=== PATIENT | male | born 1955 | race Caucasian/White ===

== ENCOUNTER 2016-10-06 02:14 | Inpatient (IN) | payer BC ==
[2016-10-06] VITALS (19 sets, daily range): BP systolic 91–134; BP diastolic 69–84; PULSE 75–99; TEMP 36.6–37.1; O2SAT 93–100; Ht 185.4 cm; Wt 129.7 kg
[~2016-10-06] VITALS: Ht 185.4 cm; Wt 129.7 kg
[~2016-10-06 02:14] MED LIST: ADAL40KI IM; ALBU1AER9 INH; COLC0.6T54 PO; FOLI1TAB7 PO; FRRS300 PO; GLC500 PO; LISI-461 PO; METO50TA16 PO; NRV5 PO; OXYC5TAB PO; PANT40TA PO; PARO30TA4 PO; PRD10 PO; THIA100T11 PO
[2016-10-06] MEDS ORDERED: GELATIN SPONGE 12-7MM ONE (02:26)
[2016-10-06] MEDS ORDERED: LIDO/EPINEPHRINE/SOD BICARB 20 ML VIAL INFIL ONE (02:26)
[2016-10-06] MEDS ORDERED: SODIUM CHLORIDE 0.9% 500ML 500 ML IV STA ×2 (02:41→03:49)
[2016-10-06 02:56] LABS: BASO % 0.9 %; BASO ABS # 0.08 K/uL (0-0.2); EOS % 3.9 %; IG% 0.3 %; LYMPH % 32.4 %; LYMPH ABS # 2.97 K/uL (1.2-3.4); MEAN CELL VOLUME 77.2 fL (80-100); MEAN CORPUSCULAR HEMOGLOBIN 24.9 pg (25-34); MEAN CORPUSCULAR HGB CONC 32.3 g/dl (32-36); MEAN PLATELET VOLUME 9.7 fL (7.4-10.4); MONO % 8.8 %; NEUT % 53.7 %; PLATELET COUNT 222 K/uL (130-400); RED BLOOD COUNT 3.37 M/uL (4.7-6.1); WHITE BLOOD COUNT 9.17 K/uL (4.8-10.8)
[2016-10-06 03:04] LABS: INR 1.1 (0.9-1.1); PARTIAL THROMBOPLASTIN RATIO 0.9; PROTHROMBIN TIME (PATIENT) 11.4 SECONDS (9.0-12.0)
[2016-10-06 03:13] LABS: COMPLETE YES
[2016-10-06 03:14] LABS: POINT OF CARE TROPONIN I 0.03 ng/ml (0-0.045)
[2016-10-06 03:19] LABS: BUN/CREATININE RATIO 11.6 (10-20); CALCIUM 8.2 mg/dl (8.5-10.1); CREATININE 1.2 mg/dl (0.60-1.40); POTASSIUM 3.5 mmol/L (3.5-5.1)
[2016-10-06 03:23] LABS: CKMB/CK RATIO 5.4 (0-3.0)
[2016-10-06] MEDS ORDERED: OPTIRAY 320 IV PRN (03:30)
[2016-10-06] MEDS ORDERED: ALL300 PO (04:25)
--- NOTE | 2016-10-06 04:35 | EMERGENCY ROOM VISIT NOTE ---
History First contact with patient: 02:30 Chief Complaint: BLEEDING Stated Complaint: BLEEDING History of Present Illness The patient is a 61 year old male who presents to the Emergency Room with complaints of shortness of breath for the past 2 weeks that is getting increased in severity who today accidentally hit his ankle on something and has bleeding from one of his varicose veins. This has happened to him before. He is not on blood thinners. Patient denies chest pain, fever, chills, cough, congestion, abdominal pain, numbness, tingling. Patient does drink daily. He' s had 6 drinks today. Patient denies prior history of heart attack, congestive heart failure, PE. He does have atrial flutter. 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 Review of Systems See HPI for pertinent positives & negatives. A total of 10 systems reviewed and were otherwise negative. Past Medical/Surgical History Medical Problems: (1) Alcohol abuse (2) Atrial flutter with rapid ventricular response (3) BPH (benign prostatic hypertrophy) (4) Chest pain (5) Depression (6) Depression (7) Diabetes mellitus type 2 in obese (8) Diastolic dysfunction (9) Gout (10) HTN (hypertension) (11) Hyperlipidemia (12) Obesity (BMI 30-39.9) (13) LAUREN on CPAP (14) Paroxysmal atrial flutter (15) Psoriatic arthritis (16) Unspecified asthma Surgical Problems: (1) Hx of ankle fusion (2) S/P colonoscopy (3) S/p mastoid surgery (4) S/P tonsillectomy (5) Status post surgical manipulation of ankle joint Family History Diabetes mellitus MOTHER FH: heart disease FATHER ( of [place] age 40) Hypertension MOTHER Social History Smoking Status: Never Smoker Alcohol Use: heavy Drug Use: none Housing Status: lives with significant other Current/Historical Medications Scheduled Allopurinol (Allopurinol), 300 MG PO DAILYBB Metformin HCl (Metformin HCl), 500 MG PO BID Paroxetine (Paroxetine HCl), 30 MG PO QAM Allergies Coded Allergies: No Known Allergies (Unverified , 10/06/16) Physical Exam Vital Signs Date Time Temp Pulse Resp B/P Pulse Ox O2 Delivery O2 Flow Rate FiO2 10/06/16 03:49 111 20 114/65 99 Room Air 10/06/16 02:45 Room Air 10/06/16 02:45 Room Air 10/06/16 02:24 122 10/06/16 02:18 36.4 114 18 129/61 94 Room Air Physical Exam VITALS: Vitals are noted on the nurse's note and reviewed by myself. Vital signs tachycardic GENERAL: Obese male with poor hygiene, in no acute distress, nondiaphoretic, well-developed well-nourished. SKIN: 5mm varicosity bleed medial malleolus area, diffuse psoriasis unchanged per patient The rest of the skin was without rashes, erythema, edema, or bruising. There is no tenting of the skin. Capillary reflex less than 2 seconds. HEAD: Normocephalic atraumatic. EARS: External auditory canals clear, tympanic membranes pearly mcfarland without erythema or effusion bilaterally. EYES: Pupils equal round and reactive to light and accommodation. Conjunctivae without injection, sclerae without icterus. Extraocular movements intact. NOSE: Patent, turbinates without inflammation or discharge. MOUTH: Mucous membranes moist. Pharynx without erythema or exudate. Uvula midline. Airway patent. Tongue does not deviate. NECK: Supple without nuchal rigidity. No lymphadenopathy. No thyromegaly. Cervical spine is nontender. No JVD. HEART: Irregularly Irregular LUNGS: Clear to auscultation bilaterally without wheezes, rales or rhonchi. No dullness to percussion. No retractions or accessory muscle use. ABDOMEN: Positive bowel sounds x 4. Normal tympanic percussion. Soft, protuberant, obeses, nontender, without masses or organomegaly. Teague sign negative. No guarding or rebound tenderness. MUSCULOSKELETAL: No muscle atrophy, erythema, noted. + 1pitting edema bilateral lower extremities NEURO: Patient was alert and oriented to person place and time. Normal sensation to light and sharp touch. No focal neurological deficits. Medical Decision & Procedures Laboratory Results 10/06/16 01:37 Red Blood Count 3.37, Mean Corpuscular Volume 77.2, Mean Corpuscular Hemoglobin 24.9, Mean Corpuscular Hemoglobin Concent 32.3, Mean Platelet Volume 9.7, Neutrophils (%) (Auto) 53.7, Lymphocytes (%) (Auto) 32.4, Monocytes (%) (Auto) 8.8, Eosinophils (%) (Auto) 3.9, Basophils (%) (Auto) 0.9, Neutrophils # (Auto) 4.92, Lymphocytes # (Auto) 2.97, Monocytes # (Auto) 0.81, Eosinophils # (Auto) 0.36, Basophils # (Auto) 0.08 10/06/16 01:37 Test 10/06/16 01:37 10/06/16 02:54 10/06/16 02:55 White Blood Count 9.17 K/uL (4.8-10.8) Red Blood Count 3.37 M/uL (4.7-6.1) Hemoglobin 8.4 g/dL (14.0-18.0) Hematocrit 26.0 % (42-52) Mean Corpuscular Volume 77.2 fL (80-100) Mean Corpuscular Hemoglobin 24.9 pg (25-34) Mean Corpuscular Hemoglobin Concent 32.3 g/dl (32-36) Platelet Count 222 K/uL (130-400) Mean Platelet Volume 9.7 fL (7.4-10.4) Neutrophils (%) (Auto) 53.7 % Lymphocytes (%) (Auto) 32.4 % Monocytes (%) (Auto) 8.8 % Eosinophils (%) (Auto) 3.9 % Basophils (%) (Auto) 0.9 % Neutrophils # (Auto) 4.92 K/uL (1.4-6.5) Lymphocytes # (Auto) 2.97 K/uL (1.2-3.4) Monocytes # (Auto) 0.81 K/uL (0.11-0.59) Eosinophils # (Auto) 0.36 K/uL (0-0.5) Basophils # (Auto) 0.08 K/uL (0-0.2) RDW Standard Deviation 52.0 fL (36.4-46.3) RDW Coefficient of Variation 18.8 % (11.5-14.5) Immature Granulocyte % (Auto) 0.3 % Immature Granulocyte # (Auto) 0.03 K/uL (0.00-0.02) Red Blood Cell Morphology Unremarkable Prothrombin Time 11.4 SECONDS (9.0-12.0) Prothromb Time International Ratio 1.1 (0.9-1.1) Activated Partial Thromboplast Time 23.3 SECONDS (21.0-31.0) Partial Thromboplastin Ratio 0.9 Anion Gap 18.0 mmol/L (3-11) Est Creatinine Clear Calc Drug Dose 97.1 ml/min Estimated GFR () 76.3 Estimated GFR (Non- 65.8 BUN/Creatinine Ratio 11.6 (10-20) Calcium Level 8.2 mg/dl (8.5-10.1) Total Bilirubin 0.7 mg/dl (0.2-1) Direct Bilirubin 0.3 mg/dl (0-0.2) Aspartate Amino Transf (AST/SGOT) 21 U/L (15-37) Alanine Aminotransferase (ALT/SGPT) 21 U/L (12-78) Alkaline Phosphatase 89 U/L (45-117) Total Creatine Kinase 94 U/L (39-308) Creatine Kinase MB 5.1 ng/ml (0.5-3.6) Creatine Kinase MB Ratio 5.4 (0-3.0) Total Protein 6.3 gm/dl (6.4-8.2) Albumin 3.1 gm/dl (3.4-5.0) Lipase 219 U/L (73-393) Bedside D-Dimer 247 ng/mlFEU (0-450) Bedside Troponin I 0.030 ng/ml (0-0.045) Ethyl Alcohol mg/dL 68.0 mg/dl (0-3) Medications Administered Medications (Trade) Dose Ordered Sig/Karen Route Start Time Stop Time Status Last Admin Dose Admin Gelatin (Surgifoam Sponge 12-7MM (SMALL)) 1 ea STK-MED ONCE .ROUTE 10/06/16 02:26 10/06/16 02:27 DC 10/06/16 02:26 1 EA Lidocaine/ Epinephrine 20 ml 20 ml STK-MED ONCE INFIL 10/06/16 02:26 10/06/16 02:27 DC 10/06/16 02:26 20 ML Sodium Chloride 500 ml @ 999 mls/hr Q31M STAT IV 10/06/16 02:41 10/06/16 03:11 DC 10/06/16 02:59 999 MLS/HR Sodium Chloride (Nss 500ml) 500 ml @ 999 mls/hr Q31M STAT IV 10/06/16 03:49 10/06/16 04:19 DC 10/06/16 03:57 999 MLS/HR Procedure Location: right ankle Total length: 5mm Complexity: simple Verbal consent was obtained after the risks and benefits were explained, including but not limited to bleeding, scarring, infection, pain, and bone/joint /nerve damage. At this time, the risks of the procedure are less than the risks of NOT performing the procedure. A time out was taken and the correct patient and site identified. The skin was prepped with betadine. The target area was anesthetized with 2 ml of 1% lidocaine with epinephrine. Copious irrigation was performed using NSS. The skin was re-prepped with betadine and a sterile field set. The wound was explored for foreign bodies and none found. Examination revealed no injury to deep structures such as tendons, bone, or significant blood vessels. Debridement was not performed. The wound edges were approximated using 2, 4-0 simple interrupted nylon sutures. Hemostasis and excellent approximation was achieved. Antibacterial ointment and a sterile dressing applied. Detailed wound care instructions and signs and symptoms of infection reviewed with the pt. No complications and the patient tolerated the procedure well. Gelfoam was also applied to obtain hemostasis. ED Course Prior records/ancillary studies reviewed. Triage Nursing notes reviewed. Additional history obtained from the EMS The patient's history was concerning for respiratory difficulties. Differential diagnosis: Etiologies such as infections, reactive airway disease, anemia pneumonia, pneumothorax, COPD, CHF, cardiac ischemia, pulmonary embolism, musculoskeletal, gastrointestinal, as well as others were entertained. Physical examination: As above. ER treatment provided: IV fluids On reassessment the patient felt better. Diagnostic interpretation by me: The electrocardiogram was irregularly irregular with no acute ST-T wave changes , ventricular rate of 116, impression atrial flutter water 2-1 interpreted by myself. The labs revealed anemic, negative troponin Imaging studies: Chest x-ray with no acute consolidation, pneumothorax or free air per my dictation CTA was negative for PE per stat radiology Consultation: A consultation was placed with the Dr. Lorenzo, hospitalist. The case was discussed and diagnostics were reviewed. The patient was evaluated in the ER for further treatment. This appears to be consistent with shortness of breath most likely related to his anemia and alcohol abuse with open wound to the lower leg was repaired by myself. Patient had dropped his H&H 2 points from CBC. He was clinically dehydrated on exam.. Patient was still short of breath. He will be evaluated by medicine for possible admission. This could be due to his anemia. By the evaluation outlined above emergent etiologies such as CHF, cardiac ischemia, pulmonary embolism, reactive airway disease, pneumonia, pneumothorax, musculoskeletal, serious bacterial infections, as well as others were deemed relatively unlikely. The pt informed about the findings as listed above. All questions were answered and pleased with the treatment. Case reviewed with my attending Medical Decision As above Impression Primary Impression: Atrial flutter with rapid ventricular response Additional Impressions: Dehydration Anemia Alcohol intoxication Open wound of right lower leg Departure Information Dispostion Being Evaluated By Hospitalist Condition FAIR Referrals Alec Elmore M.D. (PCP) Patient Instructions My [facility] Problem Qualifiers
[2016-10-06] MEDS ORDERED: POTASSIUM CHLORIDE 10 MEQ TABCR PO STA (04:51)
[2016-10-06] MEDS ORDERED: METOPROLOL TARTRATE 25 MG TAB PO ONE (04:53)
[2016-10-06] MEDS ORDERED: MULTI-VITAMIN INFUSION INJ 10 ML, THIAMINE HCL INJ 100 MG, FoLIC ACID INJ 1 MG, POTASSI... IV ONE ×5 (05:00)
[2016-10-06 05:44] LABS: MAGNESIUM 2.1 mg/dl (1.8-2.4); THYROID STIMULATING HORMONE 8.86 uIu/ml (0.300-4.500)
[2016-10-06] MEDS ORDERED: ACETAMINOPHEN 325 MG TAB PO PRN (06:30)
[2016-10-06] MEDS ORDERED: NITROGLYCERIN 0.4 MG SL PER TAB CHARGE SL PRN (06:30)
[2016-10-06] MEDS ORDERED: LORAZEPAM 2 MG/ML 1 ML VIAL IV PRN (06:30)
[2016-10-06] MEDS ORDERED: GLUCOSE 10 TABS/TUBE PO PRN (06:30)
[2016-10-06] MEDS ORDERED: DEXTROSE 50% 50 ML SYR IV PRN (06:30)
[2016-10-06] MEDS ORDERED: GLUCOSE 40% GEL 15 GM TUBE PO PRN (06:30)
[2016-10-06] MEDS ORDERED: OXYCODONE HCL IR 5 MG TAB (IMMEDIATE RELEASE) PO PRN (06:30)
[2016-10-06] MEDS ORDERED: GLUCAGON FOR INJ 1 MG VIAL SQ PRN (06:30)
[2016-10-06] MEDS ORDERED: MoRPHine SULFATE 4 MG/ML 1 ML CARP\\VIAL IV PRN (06:30)
[2016-10-06] MEDS ORDERED: GABAPENTIN 600 MG TAB PO SCH (06:30)
--- NOTE | 2016-10-06 06:39 | DIAGNOSTIC IMAGING REPORT ---
CHEST ONE VIEW PORTABLE CLINICAL HISTORY: Atypical chest pain COMPARISON STUDY: April 26, 2016 FINDINGS: The heart remains borderline enlarged. There is mild mediastinal prominence, likely secondary to fat deposition given the patient's body habitus. There is no focal pulmonary consolidation. There is no failure. There are no pleural effusions.[ IMPRESSION: No active disease in the chest. Electronically signed by: Alberto Polanco M.D. 10/06/2016 6:37 AM Dictated Date/Time: 10/06/2016 6:37 AM
[2016-10-06 07:20] LABS: ESTIMATED AVERAGE GLUCOSE 111 mg/dl; HA1C FLAG Normal (Normal)
--- NOTE | 2016-10-06 07:28 | DIAGNOSTIC IMAGING REPORT ---
CT ANGIOGRAPHY OF THE CHEST, PULMONARY EMBOLUS PROTOCOL CLINICAL HISTORY: Shortness of breath. COMPARISON STUDY: Chest CT April 26, 2016. TECHNIQUE: Following IV administration of 113 mL of Optiray-320, helical axial images of the chest were obtained utilizing the pulmonary embolus protocol. Maximal intensity projections and sagittal and coronal reformats were viewed on an independent 3D workstation. IV contrast was administered without complication. CT DOSE: 857.57 mGy.cm FINDINGS: No pulmonary emboli are identified. Mild to moderate dilatation of the central pulmonary arteries is unchanged. There is no pericardial effusion. Moderate cardiomegaly is unchanged. Extensive coronary artery calcifications present. A right axillary lymph node has decreased in size since exam of April 26, 2016. This node now measures 3.3 x 1.6 cm. It previously measured 4 x 2.2 cm. Mildly enlarged mediastinal and bilateral hilar lymph nodes are unchanged. No consolidation is present. Central airways are patent. There is no pneumothorax or pleural effusion. No consolidation is identified. Mild infiltration within the jero hepatis is unchanged as prior exam of April 08, 2016. IMPRESSION: 1. No pulmonary emboli identified. 2. No acute intrathoracic findings. 3. Interval decrease in size of the previously described right axillary lymph node. The remainder of the mildly enlarged thoracic lymph nodes are unchanged. 4. Moderate cardiomegaly and extensive coronary artery calcification. 5. Dilatation of the central pulmonary arteries which raises the possibility of pulmonary arterial hypertension. 6. Apparent mild infiltration within the jero hepatis as well as adjacent to the gallbladder. This is similar to prior exam and is therefore of doubtful significance unless this patient has right upper quadrant pain. Electronically signed by: Oscar Schneider M.D. 10/06/2016 7:26 AM Dictated Date/Time: 10/06/2016 7:17 AM
--- NOTE | 2016-10-06 08:02 | HISTORY & PHYSICAL EXAMINATION ---
DATE OF ADMISSION: 10/06/2016 PRIMARY CARE PHYSICIAN: Dr. Elmore. Hx obtained from px and records. CHIEF COMPLAINT: Bleeding from the right leg. HISTORY OF PRESENT ILLNESS: Medical history is significant for alcohol abuse, depression; chronic diastolic heart failure as per records, HTN, AFib off anticoagulation, varicose veins as per records, hyperlipidemia, chronic anemia (baseline hemoglobin 10), DM2 on oral meds, past tobacco abuse, LAUREN on CPAP, gout, Lyme disease per records. History of psoriasis. Recent confinement last April 2016 for gouty flareup and chest pain. In the last 2 weeks, the patient noted some shortness of breath especially on exertion. No new cough symptoms. No chest pain. denies new leg swelling or weight gain. Admits to some palpitations. Admits to noncompliance with home beta reji for about the last 2 months secondary to insurance issues. Patient also noted bleeding from varicose vein on the right ankle which he may have scratched. He woke up w/ "a lot of bleeding" from the right ankle this AM. Brought to the Emergency Room. Noted to be in rapid AFib. MEDICAL HISTORY: As above. 2D echo from October 2015 showed EF 70%. There is mild MR, dilated IVC. Colonoscopy October 2011 showed non-thrombosed internal hemorrhoids. SURGICAL HISTORY: Ankle fusion, mastoid surgery, tonsillectomy. HOME MEDICATIONS: Include the patient currently taking just allopurinol, metformin, paroxetine. As per outpatient med rec, the patient is supposed to be on Lopressor, metformin, Percocet, ferrous sulfate, folic acid, Protonix, thiamine, lisinopril, metoprolol, Nitrostat. ALLERGIES: ALLOPURINOL, RASH. FAMILY HISTORY: Heart disease, diabetes. PERSONAL AND SOCIAL HISTORY: Past tobacco abuse. Daily alcohol intake. [employer] employee. REVIEW OF SYSTEMS: As per HPI. Occasional blood per rectum on wiping. Admits to some depression. Denies suicidality. All other ROS negative. PHYSICAL EXAMINATION: VITAL SIGNS: Blood pressure was noted to be 129/61, later 132, later 111; pulse rate 120, RR 36.4, sats 94 on room air. GENERAL: Noted to be obese, slightly anxious, unkempt. No respiratory distress. SKIN : pallor HEENT: Pale palpebral conjunctivae. Dry mucosa. NECK: Short neck. LUNGS: Decreased effort. HEART: Tachycardic, irregular. ABDOMEN: Some distention. EXTREMITIES: Dried blood on both feet. venous stasis, dressing on the right ankle. RECTAL: Intact sphincter, yellow stool, heme positive. LABORATORY DATA: Hemoglobin was 8.4 from 10 last 04/28/2016, hematocrit 36, white cell count 9, platelets 222. Sodium 138, potassium 3.5, chloride 100, CO2 19, BUN 40, creatinine 1.2, glucose 132. trop 0.03 Hemoglobin A1c in October 2015 was 6.1. EKG, AFib, some ST depressions in the inferolateral leads. IMAGING DATA: CT chest initial read, no PE, small pericardial effusion, coronary artery calcification. ASSESSMENT: 1. Rapid atrial fibrillation multifactorial : medication noncompliance ongoing alcohol abuse. acute on chronic anemia occult gastrointestinal bleed (known hx of int hemorrhoids) bleeding from LE venous varicosity may have led to significant hemoglobin drop from baseline 2. chronic diastolic heart failure as per records patient is euvolemic 3. HTN, blood pressure on the lower side, 4. pericardial effusion on CT, BP stable albeit low 5. past tobacco abuse 6. DM2, on oral med. well controlled as of recent outpx HgA1C PLAN: PCU facilitate home beta reji. anemia emery, transfuse pRBCs if hemoglobin less than 8 and/or symptomatic anemia. GI consult, occult GI bleed. Clear liquids until seen by GI. 2D echo RE pericardial effusion, may need Cardio opinion pending results Psych consult RE depression DT precautions. PT, OT eval. Social service RE discharge planning. ISS BG goal 140-180. px due for HgA1C recheck DVT prophylaxis, SCDs RE GI bleed. Full code. MTDD
[2016-10-06] MEDS ORDERED: GABAPENTIN 1200MG LOADING DOSE PO SCH (08:30)
[2016-10-06] MEDS ORDERED: PAROXETINE 30 MG TAB PO SCH (09:00)
--- NOTE | 2016-10-06 09:32 | Gastrointestinal Consultation ---
Gastrointestinal Consultation Date of Consultation: Oct 06, 2016 Attending Physician: Olivier Cunningham Consulting Physician: Giancarlo Castrejon Reason for Consultation: Anemia, occult GI bleed History of Present Illness Patient is a 61 year old male who presented to ED w c/o R leg bleeding from varicose vein wound, which woke him up in middle of night, blood soaking his sheets. He had the wound repaired and dressed in ED. He was also c/o SOB, having palpitations. He was noted to be in rapid Afib while in ED, admits to be non compliant w beta reji therapy at home due to insurance issues. His CXR unremarkable, CTA showed extensive coronary artery calcification, increased pulmonary artery, ? pulmonary hypertension. He received Lopressor last night, currently at [facility]. Troponin was 0.086. Will have echocardiogram eval today, last echo done in February 2016, EF 5-60%. He was also anemic w Hgb around 8 (baseline 9- 10). He had rectal exam done which showed yellow stools, but heme positive. He denies any abd pain, n/v, hematemesis, appetite or weight loss. Does notice intermittent rectal bleeding but never dark tarry stools. Last BM yesterday w/o signs of bleeding. GI last saw him for anemia eval in February 2016. After his DC, he was scheduled for outpt EGD and Colonoscopy but he cancelled and never rescheduled. He has hx of int/ext hemorrhoids, colonic AVM, hyperplastic polyps noted in his 2007 and 2011 colonoscopies. He drinks ETOH quite heavily, last night prior to admission had a six pack and ETOH level was 68. Past Medical/Surgical History Medical Problems: (1) Acute pain of right wrist Status: Acute (2) Alcohol intoxication Status: Acute (3) Anemia Status: Acute (4) Atrial flutter Status: Acute (5) Bleeding from varicose veins of right lower extremity Status: Acute (6) Dehydration Status: Acute (7) Elevated troponin Status: Acute (8) Left hand pain Status: Acute (9) Open wound of right lower leg Status: Acute (10) Polyarthralgia Status: Acute (11) Precordial chest pain Status: Acute (12) Wrist pain, right Status: Acute Surgical Problems: (1) Hx of ankle fusion Status: Chronic Past Surgical History: Ankle fusion Mastoid surgery Tonsillectomy Family History Diabetes mellitus MOTHER FH: heart disease FATHER ( of [place] age 40) Hypertension MOTHER Social History Smoking Status: Never Smoker Alcohol Use: heavy Drug Use: none Housing Status: lives with significant other Allergies Coded Allergies: No Known Allergies (Unverified , 10/06/16) Current Medications Home Meds and Scripts Medications Dose Route/Sig Max Daily Dose Days Date Category Allopurinol 300 Mg Tab 300 Mg PO DAILYBB 10/06/16 Reported Paroxetine HCl (Paroxetine) 30 Mg Tab 30 Mg PO QAM 09/23/14 Reported Metformin HCl 500 Mg Tab 500 Mg PO BID 09/23/14 Reported Review of Systems Constitutional: + weakness, No chills, No fever Respiratory: + shortness of breath, No cough Cardiac: + palpitations, No chest pain Abdomen: + GI bleeding, + see HPI, No nausea, No pain, No vomiting Endo: + fatigue Skin: + bleeding, + see HPI Physical Exam Date Time Temp Pulse Resp B/P Pulse Ox O2 Delivery O2 Flow Rate FiO2 10/06/16 07:10 36.6 92 18 116/70 98 Room Air 10/06/16 06:24 117 10/06/16 06:17 36.4 113 18 110/76 99 10/06/16 06:16 113 18 110/76 99 Room Air 10/06/16 05:10 104 16 108/70 100 Room Air 10/06/16 03:49 111 20 114/65 99 Room Air 10/06/16 02:45 Room Air 10/06/16 02:45 Room Air 10/06/16 02:24 122 10/06/16 02:18 36.4 114 18 129/61 94 Room Air General Appearance: WD/WN, no apparent distress, + obese Eyes: normal inspection, PERRL, EOMI Neck: supple, no JVD, trachea midline Respiratory/Chest: no respiratory distress, no accessory muscle use, + decreased breath sounds Cardiovascular: regular rate, rhythm, no gallop, no murmur Abdomen: normal bowel sounds, non tender, soft Extremities: normal inspection, no pedal edema, no calf tenderness Neurologic/Psych: alert, normal mood/affect, oriented x 3 Skin: normal color, no jaundice, no rash Laboratory Results Last 24 Hours Test 10/06/16 01:37 10/06/16 02:54 10/06/16 02:55 10/06/16 06:56 White Blood Count 9.17 K/uL Red Blood Count 3.37 M/uL Hemoglobin 8.4 g/dL Hematocrit 26.0 % Mean Corpuscular Volume 77.2 fL Mean Corpuscular Hemoglobin 24.9 pg Mean Corpuscular Hemoglobin Concent 32.3 g/dl Platelet Count 222 K/uL Mean Platelet Volume 9.7 fL Neutrophils (%) (Auto) 53.7 % Lymphocytes (%) (Auto) 32.4 % Monocytes (%) (Auto) 8.8 % Eosinophils (%) (Auto) 3.9 % Basophils (%) (Auto) 0.9 % Neutrophils # (Auto) 4.92 K/uL Lymphocytes # (Auto) 2.97 K/uL Monocytes # (Auto) 0.81 K/uL Eosinophils # (Auto) 0.36 K/uL Basophils # (Auto) 0.08 K/uL RDW Standard Deviation 52.0 fL RDW Coefficient of Variation 18.8 % Immature Granulocyte % (Auto) 0.3 % Immature Granulocyte # (Auto) 0.03 K/uL Red Blood Cell Morphology Unremarkable Prothrombin Time 11.4 SECONDS Prothromb Time International Ratio 1.1 Activated Partial Thromboplast Time 23.3 SECONDS Partial Thromboplastin Ratio 0.9 Sodium Level 138 mmol/L Potassium Level 3.5 mmol/L Chloride Level 101 mmol/L Carbon Dioxide Level 19 mmol/L Anion Gap 18.0 mmol/L Blood Urea Nitrogen 14 mg/dl Creatinine 1.20 mg/dl Est Creatinine Clear Calc Drug Dose 97.1 ml/min Estimated GFR () 76.3 Estimated GFR (Non- 65.8 BUN/Creatinine Ratio 11.6 Random Glucose 138 mg/dl Estimated Average Glucose 111 mg/dl Hemoglobin A1c 5.5 % Calcium Level 8.2 mg/dl Magnesium Level 2.1 mg/dl Total Bilirubin 0.7 mg/dl Direct Bilirubin 0.3 mg/dl Aspartate Amino Transf (AST/SGOT) 21 U/L Alanine Aminotransferase (ALT/SGPT) 21 U/L Alkaline Phosphatase 89 U/L Total Creatine Kinase 94 U/L Creatine Kinase MB 5.1 ng/ml Creatine Kinase MB Ratio 5.4 Total Protein 6.3 gm/dl Albumin 3.1 gm/dl Lipase 219 U/L Thyroid Stimulating Hormone (TSH) 8.860 uIu/ml Free Thyroxine 0.89 ng/dl Bedside D-Dimer 247 ng/mlFEU Bedside Troponin I 0.030 ng/ml Ethyl Alcohol mg/dL 68.0 mg/dl Troponin I 0.086 ng/ml Test 10/06/16 07:56 Bedside Glucose 185 mg/dl Impression Patient is a 61 year old male currently admitted for R leg bleeding due to varicose vein wound, anemia, Afib management. He tested heme positive though no blood in stool or dark tarry stools. He does have hx of int/ext hemorrhoids w colon AVM. Previously had bleeding of hemorrhoids, and does notice intermittent rectal bleeding. He had cancelled EGD/Colonoscopy evals in 2016 and never rescheduled. Plan - Monitor H/H; transfuse prn - Ok to advance diet as tolerated. - Recommend primary team to workup anemia further - obtain iron screens, FA and B12; as suspect anemia may be related to chronic disease, ETOH use - EGD/Colonoscopy evals are reasonable, though would prefer him to have cardiac workup completed, and a few days till ETOH level in system down. Will continue to follow and decide on timing of endoscopies in next few days. I performed a history and physical examination of the patient. I have discussed the patient's case, impression and plan with DUSTIN Hopper. Her note reflects my findings and plan. Lower extremities and cardiac issues are in forefront of his care at this point. Giancarlo Castrejon MD
[2016-10-06 10:55] LABS: TOTAL IRON BINDING CAPACITY 386 mcg/dl (250-450)
[2016-10-06 10:56] LABS: HEMATOCRIT 20.6 % (42-52)
[2016-10-06 10:57] LABS: FERRITIN 27.4 ng/ml (8.0-388.0)
[2016-10-06] MEDS: INSULIN ASPART 100 UNITS/ML 3 ML PEN SC SCH ×5 (11:07→20:27)
[2016-10-06] MEDS: PANTOprazole SOD 40 MG TAB PO SCH (11:11)
--- NOTE | 2016-10-06 11:37 | Progress Note ---
Medicine Progress Note Date & Time of Visit: Oct 06, 2016 at 11:23. Subjective patient seen resting in bed, appears comfortable states he is tired, weak, somewhat dyspneic denies chest pain, palpitations, dizziness no abdominal pain, denies melena/hematochezia no recurrence of bleeding on the right leg no hallucinations, tremors Objective Last 8 Hrs Date Time Temp Pulse Resp B/P Pulse Ox O2 Delivery O2 Flow Rate FiO2 10/06/16 07:10 36.6 92 18 116/70 98 Room Air 10/06/16 06:24 117 10/06/16 06:17 36.4 113 18 110/76 99 10/06/16 06:16 113 18 110/76 99 Room Air 10/06/16 05:10 104 16 108/70 100 Room Air 10/06/16 03:49 111 20 114/65 99 Room Air Physical Exam: General- oriented x 3, not in distress, speaks in sentences with no effort Head- atraumatic Eyes- EOMI, anicteric Neck- supple, no JVD Lungs- clear breath sounds bilaterally Heart- normal rate, irregularly irregular rhythm; no murmur Abdomen- normal bowel sounds, soft, nontender Extremities- right lower leg: dressing in place, no active bleeding poor hygiene, possible fungal infection of the toe nails (+) psoriatic plaques on the elbow, knees,legs, back no pretibial edema, no calf tenderness; peripheral pulses intact Neuro- alert, oriented x 3; no gross focal deficits, no tremors Skin- warm & dry Laboratory Results: Last 24 Hours Test 10/06/16 01:37 10/06/16 02:54 10/06/16 02:55 10/06/16 06:56 White Blood Count 9.17 K/uL Red Blood Count 3.37 M/uL Hemoglobin 8.4 g/dL Hematocrit 26.0 % Mean Corpuscular Volume 77.2 fL Mean Corpuscular Hemoglobin 24.9 pg Mean Corpuscular Hemoglobin Concent 32.3 g/dl Platelet Count 222 K/uL Mean Platelet Volume 9.7 fL Neutrophils (%) (Auto) 53.7 % Lymphocytes (%) (Auto) 32.4 % Monocytes (%) (Auto) 8.8 % Eosinophils (%) (Auto) 3.9 % Basophils (%) (Auto) 0.9 % Neutrophils # (Auto) 4.92 K/uL Lymphocytes # (Auto) 2.97 K/uL Monocytes # (Auto) 0.81 K/uL Eosinophils # (Auto) 0.36 K/uL Basophils # (Auto) 0.08 K/uL RDW Standard Deviation 52.0 fL RDW Coefficient of Variation 18.8 % Immature Granulocyte % (Auto) 0.3 % Immature Granulocyte # (Auto) 0.03 K/uL Red Blood Cell Morphology Unremarkable Prothrombin Time 11.4 SECONDS Prothromb Time International Ratio 1.1 Activated Partial Thromboplast Time 23.3 SECONDS Partial Thromboplastin Ratio 0.9 Sodium Level 138 mmol/L Potassium Level 3.5 mmol/L Chloride Level 101 mmol/L Carbon Dioxide Level 19 mmol/L Anion Gap 18.0 mmol/L Blood Urea Nitrogen 14 mg/dl Creatinine 1.20 mg/dl Est Creatinine Clear Calc Drug Dose 97.1 ml/min Estimated GFR () 76.3 Estimated GFR (Non- 65.8 BUN/Creatinine Ratio 11.6 Random Glucose 138 mg/dl Estimated Average Glucose 111 mg/dl Hemoglobin A1c 5.5 % Calcium Level 8.2 mg/dl Magnesium Level 2.1 mg/dl Total Bilirubin 0.7 mg/dl Direct Bilirubin 0.3 mg/dl Aspartate Amino Transf (AST/SGOT) 21 U/L Alanine Aminotransferase (ALT/SGPT) 21 U/L Alkaline Phosphatase 89 U/L Total Creatine Kinase 94 U/L Creatine Kinase MB 5.1 ng/ml Creatine Kinase MB Ratio 5.4 Total Protein 6.3 gm/dl Albumin 3.1 gm/dl Lipase 219 U/L Thyroid Stimulating Hormone (TSH) 8.860 uIu/ml Free Thyroxine 0.89 ng/dl Bedside D-Dimer 247 ng/mlFEU Bedside Troponin I 0.030 ng/ml Ethyl Alcohol mg/dL 68.0 mg/dl Troponin I 0.086 ng/ml Test 10/06/16 07:56 10/06/16 10:02 10/06/16 10:53 Bedside Glucose 185 mg/dl Hemoglobin 6.7 g/dL Hematocrit 20.6 % Absolute Reticulocyte Count 0.09 10^6/uL Percent Reticulocyte Count 3.3 % Iron Level 20 mcg/dl Total Iron Binding Capacity 386 mcg/dl Transferrin 297 mg/dl Transferrin % Saturation 5 % Ferritin 27.4 ng/ml Vitamin B12 Level 335 pg/mL Folate 19.61 ng/mL Creatine Kinase MB Ratio Date/Time Source Procedure Growth Status 10/06/16 06:50 Nasal MRSA DNA Surveillance Screen - Final Specimen Negative for MRSA by DNA Probe Complete Assessment & Plan 61 year old male with history of Alcohol Abuse, A fib not on anticoagulation, CHF Diastolic Type, DM, HTN, other problems noted below presenting with right lower leg bleeding. ANEMIA LIKELY SECONDARY TO LOWER LEG VARICOSE VEIN BLEEDING - Hg 6.7 anemia panel pending - 2 units of PRBC ordered wound care consult ATRIAL FIBRILLATION IN RVR likely from medication non compliance and acute blood loss anemia usually on Metoprolol 50mg BID, resumed metoprolol on 12.5mg bid for marginal BP per cardiology, not a good candidate for anticoag due to possible GI bleed, medication non compliance, alcoholism echo: pending TSH elevated, T4 normal - HR improved to 90s - continue Metoprolol 12.5mg bid, uptitrate accordingly will need to hold Aspirin due to right lower leg bleeding - will consult Cardiology ALCOHOLISM - Alcohol level 68 last drink was last night - no signs of withdrawal yet on Banana bag, Gabapentin monitor CHF, DIASTOLIC TYPE - no signs of volume overload DM 2 usually on metformin A1c 5 on ISS HYPERTENSION BP on the lower side Lisinopril held Metoprolol decreased HISTORY OF LAUREN PSORIASIS follows with Dr. Galdamez off [facility] due to insurance issues GOUT on Allopurinol DVT PROPHYLAXIS SCDs heparin contraindicated due to leg bleeding Disposition lives alone at home will need PT/OT eval Current Inpatient Medications: Current Inpatient Medications Medications (Trade) Dose Ordered Sig/Karen Route Start Time Stop Time Status Last Admin Dose Admin Ioversol (Optiray 320) 100 ml UD PRN IV 10/06/16 03:30 10/10/16 03:29 Metoprolol Tartrate 12.5 mg 12.5 mg BID PO 10/06/16 21:00 11/05/16 20:59 Multivitamins/ Thiamine HCl/ Folic Acid/ Potassium Chloride/Sodium Chloride (Mvi Infusion Inj/Vitamin B-1 Inj/Folvite Inj/ KCl Inj/Nss 1000ml) 1,021.2 ml @ 100 mls/ hr [id number] ONCE IV 10/06/16 05:00 10/06/16 15:12 10/06/16 05:29 100 MLS/HR Acetaminophen (Tylenol Tab) 650 mg Q4H PRN PO 10/06/16 06:30 11/05/16 06:29 Nitroglycerin (Nitrostat Tab) 0.4 mg UD PRN SL 10/06/16 06:30 11/05/16 06:29 Insulin Aspart (novoLOG ASPART) SLIDING SCALE If C... ACHS SC 10/06/16 06:45 11/05/16 06:44 10/06/16 11:07 1 UNITS Glucose (Glucose 40% Gel) 15-30 GRAMS 15 GRAMS... UD PRN PO 10/06/16 06:30 11/05/16 06:29 Glucose (Glucose Chew Tab) 4-8 Tablets 4 Tabl... UD PRN PO 10/06/16 06:30 11/05/16 06:29 Dextrose (Dextrose 50% 50ML Syringe) 25-50ML OF 50% DW IV FOR... UD PRN IV 10/06/16 06:30 11/05/16 06:29 Glucagon (Glucagon Inj) 1 mg UD PRN SQ 10/06/16 06:30 11/05/16 06:29 Allopurinol (Zyloprim Tab) 300 mg DAILYBB PO 10/07/16 06:00 11/06/16 05:59 Paroxetine HCl (pAXil) 30 mg QAM PO 10/06/16 09:00 11/05/16 08:59 10/06/16 11:11 30 MG Oxycodone HCl (Roxicodone Immediate Rel Tab) 5 mg Q6H PRN PO 10/06/16 06:30 10/20/16 06:29 Morphine Sulfate (MoRPHine SULFATE INJ) 4 mg Q3H PRN IV 10/06/16 06:30 10/20/16 06:29 Lorazepam (Ativan Inj) 1 mg ONE PRN IV 10/06/16 06:30 Thiamine HCl (Vitamin B-1 Tab) 100 mg QAM PO 10/07/16 09:00 11/06/16 08:59 Multivitamins (Multivitamin Tab) 1 tab QAM PO 10/07/16 09:00 11/06/16 08:59 Folic Acid (Folvite Tab) 1 mg QAM PO 10/07/16 09:00 11/06/16 08:59 Pantoprazole Sodium (Protonix Tab) 40 mg QAM PO 10/06/16 09:00 11/05/16 08:59 10/06/16 11:11 40 MG Gabapentin (Neurontin Tab) 600 mg Q6H PO 10/06/16 14:00 10/06/16 20:01 Gabapentin (Neurontin Tab) 600 mg Q8H PO 10/07/16 06:00 10/07/16 22:01 Gabapentin (Neurontin Tab) 600 mg Q12H PO 10/08/16 10:00 10/08/16 22:01 Gabapentin (Neurontin Tab) 600 mg Q24H PO 10/09/16 22:00 10/09/16 22:01
--- NOTE | 2016-10-06 13:47 | ECHOCARDIOGRAM REPORT ---
*NOTICE TO RECEIVING CONSTITUTION PARTY AGENCY This information is strictly Confidential and protected under [place] law. [place] law prohibits you from making any further disclosure of this information unless further disclosure is expressly permitted by the written consent of the person to whom it pertains or is authorized by law. A general authorization for the release of medical or other information is not sufficient for this purpose. Hospital accepts no responsibility if the information is made available to any other person, INCLUDING THE PATIENT. Interpretation Summary * Conclusions -- * There is mild concentric left ventricular hypertrophy. * The left ventricular wall motion is normal. * Ejection Fraction = 55-60%. * The right ventricle is not well visualized. * The right ventricle is mildly dilated. * The right ventricular systolic function is grossly normal on limited visualization. * The left atrium is moderately dilated. * There is mild mitral regurgitation. * Doppler findings do not suggest pulmonary hypertension. Procedure Details * A complete two-dimensional transthoracic echocardiogram was performed (2D, M-mode, Doppler and color flow Doppler). * The study was technically difficult. * There were technical limitations due to patient'sbody habitus * A contrast injection of Definity was performed to improve assessment of LV function. * Contrast was injected into an intravenous site in the left arm. * One vial of Definity ultrasound contrast was diluted in normal saline to a total volume of 10 ml. A total of '2' ml of solution was administered during imaging. * Lot # [id number] of Definity utilized for procedure. * Expiration date MAR 05. * The attending nurse who injected the contrast agent was NATHEN DEL ROSARIO RN. Left Ventricle * The left ventricle is normal in size. * There is mild concentric left ventricular hypertrophy. * Left ventricular systolic function is normal. * Ejection Fraction = 55-60%. * The left ventricular wall motion is normal. Right Ventricle * The right ventricle is not well visualized. * The right ventricle is mildly dilated. * The right ventricular systolic function is grossly normal on limited visualization. Atria * The left atrium is moderately dilated. * Right atrial size is normal. * There is no evidence of atrial septal defect, but resolution does not allow assessment for a patent foramen ovale. Mitral Valve * The mitral valve is normal. * There is no mitral valve stenosis. * There is mild mitral regurgitation. Tricuspid Valve * The tricuspid valve is normal. * There is no tricuspid stenosis. * Significant tricuspid regurgitation is absent. * Doppler findings do not suggest pulmonary hypertension. Aortic Valve * The aortic valve is trileaflet. * Aortic stenosis is absent. * There is no significant aortic regurgitation. Pulmonic Valve * The pulmonary valve is not well seen, but the Doppler examination is normal without significant regurgitation or stenosis. Great Vessels * The aortic root and proximal ascending aorta are normal sized. Pericardium/Pleural * There is no pericardial effusion. Great Vessels * Normal inferior vena cava diameter and respiratory variation suggests normal central venous pressure. Left Ventricular Diastolic Function * The left ventricular diastolic function is abnormal based on the left atrial enlargement. MMode 2D Measurements and Calculations IVSd 1.9 cm IVSs 2.8 cm LVIDd 4.9 cm LVIDs 4.0 cm LVPWd 1.6 cm LVPWs 1.7 cm IVS/LVPW 1.2 FS 17.7 % EDV(Teich) 112.8 ml ESV(Teich) 71.3 ml EF(Teich) 36.8 % EDV(cubed) 117.6 ml ESV(cubed) 65.5 ml EF(cubed) 44.3 % % IVS thick 50.1 % % LVPW thick 7.9 % LV mass(C)d 389.7 grams LV mass(C)dI 151.2 grams/m\S\2 LV mass(C)s 466.8 grams LV mass(C)sI 181.1 grams/m\S\2 SV(Teich) 41.5 ml SI(Teich) 16.1 ml/m\S\2 SV(cubed) 52.2 ml SI(cubed) 20.2 ml/m\S\2 Ao root diam 3.8 cm Ao root area 11.2 cm\S\2 LA dimension 5.4 cm LA/Ao 1.4 LVAd ap4 36.5 cm\S\2 LVLd ap4 9.0 cm EDV(MOD-sp4) 123.7 ml EDV(sp4-el) 125.2 ml LVAs ap4 25.3 cm\S\2 LVLs ap4 7.9 cm ESV(MOD-sp4) 67.2 ml ESV(sp4-el) 68.7 ml EF(MOD-sp4) 45.7 % EF(sp4-el) 45.1 % LVAd ap2 36.4 cm\S\2 LVLd ap2 9.0 cm EDV(MOD-sp2) 122.4 ml EDV(sp2-el) 124.5 ml LVAs ap2 26.5 cm\S\2 LVLs ap2 8.1 cm ESV(MOD-sp2) 70.0 ml ESV(sp2-el) 73.5 ml EF(MOD-sp2) 42.8 % EF(sp2-el) 41.0 % LVLd %diff 0.13 % EDV(MOD-bp) 123.0 ml LVLs %diff 2.1 % ESV(MOD-bp) 69.6 ml EF(MOD-bp) 43.5 % LVLs apical 2.2 cm SV(MOD-sp4) 56.5 ml SI(MOD-sp4) 21.9 ml/m\S\2 SV(MOD-sp2) 52.3 ml SI(MOD-sp2) 20.3 ml/m\S\2 SV(MOD-bp) 53.5 ml SI(MOD-bp) 20.7 ml/m\S\2 SV(sp4-el) 56.5 ml SI(sp4-el) 21.9 ml/m\S\2 SV(sp2-el) 51.0 ml SI(sp2-el) 19.8 ml/m\S\2 Doppler Measurements and Calculations MV E max meena 117.9 cm/sec MV P1/2t max meena 154.2 cm/sec MV P1/2t 50.6 msec MVA(P1/2t) 4.4 cm\S\2 MV dec slope 893.3 cm/sec\S\2 MV dec time 0.18 sec Ao V2 max 144.8 cm/sec Ao max PG 8.4 mmHg Ao max PG (full) 4.0 mmHg LV V1 max PG 4.4 mmHg LV V1 max 104.6 cm/sec MR max meena 419.0 cm/sec MR max PG 70.2 mmHg PA V2 max 91.8 cm/sec PA max PG 3.4 mmHg TR max meena 249.5 cm/sec
--- NOTE | 2016-10-06 14:07 | Psychiatric Consultation ---
Consultation Identifying Data 61 y/o DWM with alcohol abuse, depression, and multiple medical problems including heart failure, anemia, diabetes type 2, hypertension, a fib, who presented with bleeding from the right ankle varicose vein, and was noted to be in rapid a fib, and was admitted medically. Psychiatry consulted for depression. Chief Complaint "I don't know". History of Present Illness Patient reports long standing depression for which he has been taking paroxetine prescribed by his PCP for 24 years. He has been on his current dose for over 5 years, and thinks it helps. He has had SI in the past with thoughts of crashing his car, but denies any SI recently, and states he would never act on these thoughts because of his son. His mood has been lower for the past month or so, he thinks due to "my life's not what I thought it would be at 62...2 divorces, struggling with addiction." He says he drinks too much and knows that he needs to stop due to his health problems. He doesn't think he'll have any problems quitting, as he has done it before. He thinks he "claude with life pretty well, but it pretty much sucks right now." His primary stressors are his health and his son. His son is 26 and was adopted by the patient and his ex- when he was 4 days old. His son struggles with substance abuse and his own mental health issues. He has a good relationship with him, and took a phone call from him during the interview, wanting to reassure his son he was ok. He denies problems with concentration, crying spells, anhedonia, and sleep disturbance, but admits to low energy and hopelessness. He denies irritability and manic symptoms, as well as symptoms of psychosis and anxiety. Past Psychiatric History Current OP Treatment: no current treatment Prior OP Treatment: therapist (saw [facility] a few years ago) Past Medical/Surgical History History of Obesity: Yes History of HTN: Yes History of Diabetes: Yes History of Heart Disease: Yes History of Dyslipidemia: Yes History of Concussion/Seizure: No Problem List: (1) Open wound of right lower leg (2) Anemia (3) Atrial fibrillation with rapid ventricular response (4) BPH (benign prostatic hypertrophy) (5) Psoriatic arthritis (6) Gout (7) Unspecified asthma (8) LAUREN on CPAP Allergies Allergies: Coded Allergies: No Known Allergies (Unverified , 10/06/16) Home Medications Scheduled Allopurinol (Allopurinol), 300 MG PO DAILYBB Metformin HCl (Metformin HCl), 500 MG PO BID Paroxetine (Paroxetine HCl), 30 MG PO QAM Family History Diabetes mellitus MOTHER FH: heart disease FATHER ( of [place] age 40) Hypertension MOTHER brother with anxiety Alcohol Use Alcohol Use In Past 12 Months: Yes Drinking since age 19, recently drinking 6+ beers a day. Has been able to decrease intake and even stop for weeks to months in the past. Attended AA briefly 5 years ago at his then-'s suggestion, but felt he "wasn't as bad" as the people there and didn't need it. No history of formal outpatient treatment or rehab. Denies other substance abuse. 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 Relationship History: (x2) Children: 1 son adopted at 4 days old, now 26 yrs old Spiritual Affiliation: yes Legal History: none Abuse History: none Review of Systems 10 systems reviewed, + weakness, others negative except as stated above Examination Vital Signs Vital Signs Past 12 Hours Date Time Temp Pulse Resp B/P Pulse Ox O2 Delivery O2 Flow Rate FiO2 10/06/16 13:37 36.7 90 24 91/71 100 10/06/16 13:02 36.7 90 22 134/83 100 10/06/16 12:25 36.7 91 19 117/72 98 10/06/16 12:10 36.7 99 21 130/76 95 10/06/16 12:00 36.7 90 14 130/76 100 Room Air 10/06/16 12:00 100 Room Air 10/06/16 07:10 36.6 92 18 116/70 98 Room Air 10/06/16 06:24 117 10/06/16 06:17 36.4 113 18 110/76 99 10/06/16 06:16 113 18 110/76 99 Room Air 10/06/16 05:10 104 16 108/70 100 Room Air 10/06/16 03:49 111 20 114/65 99 Room Air 10/06/16 02:45 Room Air 10/06/16 02:45 Room Air 10/06/16 02:24 122 10/06/16 02:18 36.4 114 18 129/61 94 Room Air Laboratory Results Last 24 Hours Test 10/06/16 01:37 10/06/16 02:54 10/06/16 02:55 10/06/16 06:56 White Blood Count 9.17 K/uL Red Blood Count 3.37 M/uL Hemoglobin 8.4 g/dL Hematocrit 26.0 % Mean Corpuscular Volume 77.2 fL Mean Corpuscular Hemoglobin 24.9 pg Mean Corpuscular Hemoglobin Concent 32.3 g/dl Platelet Count 222 K/uL Mean Platelet Volume 9.7 fL Neutrophils (%) (Auto) 53.7 % Lymphocytes (%) (Auto) 32.4 % Monocytes (%) (Auto) 8.8 % Eosinophils (%) (Auto) 3.9 % Basophils (%) (Auto) 0.9 % Neutrophils # (Auto) 4.92 K/uL Lymphocytes # (Auto) 2.97 K/uL Monocytes # (Auto) 0.81 K/uL Eosinophils # (Auto) 0.36 K/uL Basophils # (Auto) 0.08 K/uL RDW Standard Deviation 52.0 fL RDW Coefficient of Variation 18.8 % Immature Granulocyte % (Auto) 0.3 % Immature Granulocyte # (Auto) 0.03 K/uL Red Blood Cell Morphology Unremarkable Prothrombin Time 11.4 SECONDS Prothromb Time International Ratio 1.1 Activated Partial Thromboplast Time 23.3 SECONDS Partial Thromboplastin Ratio 0.9 Sodium Level 138 mmol/L Potassium Level 3.5 mmol/L Chloride Level 101 mmol/L Carbon Dioxide Level 19 mmol/L Anion Gap 18.0 mmol/L Blood Urea Nitrogen 14 mg/dl Creatinine 1.20 mg/dl Est Creatinine Clear Calc Drug Dose 97.1 ml/min Estimated GFR () 76.3 Estimated GFR (Non- 65.8 BUN/Creatinine Ratio 11.6 Random Glucose 138 mg/dl Estimated Average Glucose 111 mg/dl Hemoglobin A1c 5.5 % Calcium Level 8.2 mg/dl Magnesium Level 2.1 mg/dl Total Bilirubin 0.7 mg/dl Direct Bilirubin 0.3 mg/dl Aspartate Amino Transf (AST/SGOT) 21 U/L Alanine Aminotransferase (ALT/SGPT) 21 U/L Alkaline Phosphatase 89 U/L Total Creatine Kinase 94 U/L Creatine Kinase MB 5.1 ng/ml 7.4 ng/ml Creatine Kinase MB Ratio 5.4 Total Protein 6.3 gm/dl Albumin 3.1 gm/dl Lipase 219 U/L Thyroid Stimulating Hormone (TSH) 8.860 uIu/ml Free Thyroxine 0.89 ng/dl Bedside D-Dimer 247 ng/mlFEU Bedside Troponin I 0.030 ng/ml Ethyl Alcohol mg/dL 68.0 mg/dl Troponin I 0.086 ng/ml Test 10/06/16 07:56 10/06/16 10:02 10/06/16 10:53 10/06/16 11:29 Bedside Glucose 185 mg/dl 154 mg/dl Hemoglobin 6.7 g/dL Hematocrit 20.6 % Absolute Reticulocyte Count 0.09 10^6/uL Percent Reticulocyte Count 3.3 % Iron Level 20 mcg/dl Total Iron Binding Capacity 386 mcg/dl Transferrin 297 mg/dl Transferrin % Saturation 5 % Ferritin 27.4 ng/ml Vitamin B12 Level 335 pg/mL Folate 19.61 ng/mL Creatine Kinase MB Ratio Mental Examination During interview pt is: alert and oriented, cooperative Appearance: disheveled Eye contact is: fair Motor behavior is: no abnormal motor movements Speech: normal in rate, rhythm & volume Affect: mood congruent Mood is: depressed Thought process: goal directed Thought content: reality based without delusions Suicidal thought are: denied Homicidal thoughts are: denied Hallucinations: denies auditory, denies visual Cognition: memory grossly intact, attention grossly intact, language grossly intact Intelligence estimated to be: average Insight: fair Judgement: fair Impression / Recommendations Impression 61y/o DWM with a history of depression and alcoholism who is admitted with anemia, bleed, and a fib. He has been on paroxetine for years which he thinks is helpful. He recognizes that he has to stop drinking and may benefit from AA or other outpatient services. Risk Factors Assessment Male: Yes : Yes /single/: Yes Access to guns: No Health problems: Yes Mental Health Diagnoses: Yes Substance use disorders: Yes Previous attempt: No Family history of suicide: No Previous psychiatric stay: No Hopelessness: No Smoker: No Protective Factors Assessment Judaism beliefs: Yes : No Responsible for young children: No Employed: Yes Stable relationships: Yes Supportive family: Yes Absence of risk factors above: Yes (Not suicidal, not at acute risk of harm) Recommendations (1) Depression Patient agrees to increase his paroxetine to 40mg daily Would benefit from therapy, if he changes his mind and is willing for a referral , please contact the psychiatric liaison nurse to make a referral. Inpatient psychiatric admission not indicated. (2) Alcohol abuse Recommend abstinence. Avoid prescription of controlled substances due to risk of abuse Encourage participation in either outpatient substance abuse treatment or a peer support group such as AA. He indicates willingness to try AA again. His son is active in the organization as well
[2016-10-06] MEDS: GABAPENTIN 600MG Q6H DOSE PO SCH ×2 (14:20→20:22)
--- NOTE | 2016-10-06 15:05 | Cardiology Consultation ---
Cardiology Consultation Date of Consultation: Oct 06, 2016 History of Present Illness Augustine Valentine is a 61-year-old male seen in cardiology consultation per the request of Dr. Cunningham for the evaluation of atrial fibrillation. The patient is seen in SICU room 108, he is there is a telemetry overflow patient. The patient initially presented to the emergency department overnight last night with bleeding from his right lower leg. Apparently has a history of paroxysmal veins and had bleeding from a pain at the medial portion of his right leg above his ankle which he was unable to control at home. He apparently been off of his medications including his beta reji due to issues with his insurance for his medications. His presenting EKG performed on 10/06/16 at 2:47 AM revealed atrial flutter with rapid ventricular response and variable AV conduction with rate of [address]-T wave abnormalities were noted which were mild. Compared to the prior tracing performed in April 2016 ventricular rate had increased by 41 bpm. The patient was found to be profoundly anemic with a hemoglobin of 6.7 g/ dL. He has since received 1 unit of packed red blood cells and a second transfusion is apparently pending. During my assessment of the patient he was resting comfortably. The patient previously been seen by our cardiology service in April 2016 for atrial flutter with rapid ventricular response. He was also found to have an acute gout flare at that time. In March and April 2016 he been assessed for symptomatic anemia and required transfusion. Outpatient EGD and colonoscopy had been recommended but were not performed as the patient did not keep appointments. He has a history of past and ongoing alcohol use and states that he ingested 6 beers before coming to the emergency room last night. 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 Mother is alive at 82 without cardiac issues. Paternal uncle with an ND at 65. Paternal grandmother with an ND in his 40's. He has three sisters and one brother without cardiac issues Social History: Reformed smoker, quit approximately 26 years ago. Alcohol: 6-12 per day until about 2 months ago, gradually tapering at that time. He denies illegal drug use. Recently for the second time. Review Of Systems See above for pertinent positives & negatives. A total of 10 systems reviewed and were otherwise negative. Allergies Coded Allergies: No Known Allergies (Unverified , 10/06/16) Medications Reported Home Medications Medications Dose Route/Sig Max Daily Dose Days Date Category Allopurinol 300 Mg Tab 300 Mg PO DAILYBB 10/06/16 Reported Paroxetine HCl (Paroxetine) 30 Mg Tab 30 Mg PO QAM 09/23/14 Reported Metformin HCl 500 Mg Tab 500 Mg PO BID 09/23/14 Reported Physical Exam Vital Signs (Last 8hrs): Last 8 Hrs Date Time Temp Pulse Resp B/P Pulse Ox O2 Delivery O2 Flow Rate FiO2 10/06/16 14:47 36.6 91 24 122/80 98 10/06/16 14:13 36.7 91 15 120/77 99 10/06/16 13:37 36.7 90 24 91/71 100 10/06/16 13:02 36.7 90 22 134/83 100 10/06/16 12:25 36.7 91 19 117/72 98 10/06/16 12:10 36.7 99 21 130/76 95 10/06/16 12:00 36.7 90 14 130/76 100 Room Air 10/06/16 12:00 100 Room Air 10/06/16 07:10 36.6 92 18 116/70 98 Room Air General Appearance: Chronically on appearance, easily aroused, having been sleeping soundly when I first visited with him Head: Normocephalic Atraumatic. Eyes: PERRLA, EOMI, conjunctiva and sclera clear Neck: Supple. No carotid bruits noted. No JVD. No HJD. Respiratory: Breath sounds clear to auscultation bilaterally. No w/r/r. Cardiovascular: Regular rhythm at the time of my assessment with rates in the 90s on exam and on telemetry Abdomen: Normal bowel sounds, soft nontender. no abdominal bruits. Extremities: Extremities reveal changes consistent with chronic venous stasis, varicose Veins noted, poor hygiene is noted, his toenails have not been maintained Neuro: No focal deficits. Data Last Resulted 10/06/16 01:37 Red Blood Count 3.37, Mean Corpuscular Volume 77.2, Mean Corpuscular Hemoglobin 24.9, Mean Corpuscular Hemoglobin Concent 32.3, Mean Platelet Volume 9.7, Neutrophils (%) (Auto) 53.7, Lymphocytes (%) (Auto) 32.4, Monocytes (%) (Auto) 8.8, Eosinophils (%) (Auto) 3.9, Basophils (%) (Auto) 0.9, Neutrophils # (Auto) 4.92, Lymphocytes # (Auto) 2.97, Monocytes # (Auto) 0.81, Eosinophils # (Auto) 0.36, Basophils # (Auto) 0.08 10/06/16 10:02 Last Resulted 10/06/16 01:37 Past 24 Hours Test 10/06/16 01:37 10/06/16 06:56 10/06/16 10:53 Range/Units Creatine Kinase MB 5.1 H 7.4 H 0.5-3.6 ng/ml Creatine Kinase MB Ratio 5.4 H 0-3.0 Prothromb Time International Ratio 1.1 0.9-1.1 Prothrombin Time 11.4 9.0-12.0 SECONDS Total Creatine Kinase 94 39-308 U/L Troponin I 0.086 *H 0-0.045 ng/ml Echocardiogram performed today 10/06/16 and reviewed in apparently by the undersigned: n Conclusions -- n There is mild concentric left ventricular hypertrophy. n The left ventricular wall motion is normal. n Ejection Fraction = 55-60%. n The right ventricle is not well visualized. n The right ventricle is mildly dilated. n The right ventricular systolic function is grossly normal on limited visualization. n The left atrium is moderately dilated. n There is mild mitral regurgitation. n Doppler findings do not suggest pulmonary hypertension. EKG: As per history of present illness Telemetry reviewed: He appears to be in a regular heart RR rhythm at 90 bpm consistent with atrial flutter Assessment & Plan Impression: 61-year-old male 1. Apparent chronic atrial flutter presented with RVR, now improved, ST changes suggestive of demand ischemia perhaps related to elevated ventricular rate in the setting of profound anemia 2. Acute on chronic anemia, difficult to determine if this is acute blood loss anemia or due to other chronic issues, he is a history of past hemoglobins and in the 8 g/dL range 3. Ongoing alcohol use, likely malnutrition Recommendations: Given ST changes on EKG consistent with subendocardial ischemia, would recommend infusion to maintain hemoglobin goal of 10 g/dL. Agree with reinitiating metoprolol, start with low-dose 12.5 mg twice a day. He is not a candidate for short-term or ongoing anticoagulation. Echocardiographic findings as noted above. GI input noted and appreciated. Patient uses CPAP at home. He is a heavy snorer, recommend the patient uses the hospital his CPAP machine while he is an inpatient.
[2016-10-06 18:38] LABS: HEMATOCRIT 23.9 % (42-52)
[2016-10-06] MEDS ORDERED: FUROSEMIDE INJ 20 MG in SYRINGE 0 ML IV SCH (19:00)
[2016-10-06] MEDS: METOPROLOL TARTRATE 25 MG TAB PO SCH (20:22)
[2016-10-07] VITALS (21 sets, daily range): BP systolic 116–141; BP diastolic 76–91; PULSE 89–96; TEMP 36–36.8; O2SAT 94–100
[2016-10-07 04:48] LABS: BASO ABS # 0.07 K/uL (0-0.2); EOS % 3.1 %; HEMATOCRIT 25.9 % (42-52); IG% 0.1 %; LYMPH % 29.5 %; LYMPH ABS # 1.97 K/uL (1.2-3.4); MEAN CELL VOLUME 78.5 fL (80-100); MEAN CORPUSCULAR HEMOGLOBIN 26.4 pg (25-34); MEAN CORPUSCULAR HGB CONC 33.6 g/dl (32-36); MEAN PLATELET VOLUME 9.3 fL (7.4-10.4); NEUT % 56.3 %; PLATELET COUNT 142 K/uL (130-400); WHITE BLOOD COUNT 6.67 K/uL (4.8-10.8)
[2016-10-07 05:05] LABS: CALCIUM 8.2 mg/dl (8.5-10.1)
[2016-10-07 05:47] LABS: COMPLETE YES; POLYCHROMASIA 1+
[2016-10-07] MEDS: ALLOPURINOL 300 MG TAB PO SCH (05:56)
[2016-10-07] MEDS: GABAPENTIN 600MG Q8H DOSE PO SCH ×3 (05:56→21:01)
[2016-10-07] MEDS: THIAMINE HCL 100 MG TAB PO SCH (08:46)
[2016-10-07] MEDS: METOPROLOL TARTRATE 25 MG TAB PO SCH ×2 (08:47→21:02)
[2016-10-07] MEDS: MULTIVITAMIN TAB PO SCH (08:47)
[2016-10-07] MEDS: PAROXETINE 20 MG TAB PO SCH (08:47)
[2016-10-07] MEDS: PANTOprazole SOD 40 MG TAB PO SCH (08:48)
[2016-10-07] MEDS: INSULIN ASPART 100 UNITS/ML 3 ML PEN SC SCH ×4 (08:52→21:00)
--- NOTE | 2016-10-07 08:53 | Progress Note ---
Medicine Progress Note Date & Time of Visit: Oct 07, 2016 at 08:45. Subjective seen resting in bed, using CPAP, comfortable states he had a good night feels improved today, less weak denies dyspnea, chest pain, palpitations no recurrence of bleeding denies other symptoms Objective Last 8 Hrs Date Time Temp Pulse Resp B/P Pulse Ox O2 Delivery O2 Flow Rate FiO2 10/07/16 08:40 36.8 89 18 120/83 98 10/07/16 08:10 36.8 89 16 121/81 98 10/07/16 07:55 36.1 93 20 116/82 99 10/07/16 07:40 36.0 91 22 128/78 94 10/07/16 07:37 36.4 93 20 135/86 10/07/16 04:22 36.8 93 18 124/86 98 CPAP 10/07/16 04:00 CPAP 10/07/16 02:30 36.8 92 18 123/85 95 10/07/16 01:30 36.5 95 18 130/85 97 10/07/16 01:00 36.8 92 18 132/85 98 Physical Exam: General- oriented x 3, not in distress, speaks in sentences with no effort Eyes-anicteric Neck- no JVD Lungs- clear breath sounds bilaterally, no rales/wheezes Heart- normal rate, irregularly irregular rhythm; no murmur Abdomen- normal bowel sounds, soft, nontender Extremities- right lower leg: (+) small wound on the medial distal aspect, sutured, wound healing well, no bleeding or discharge poor hygiene, possible fungal infection of the toe nails (+) psoriatic plaques on the elbow, knees,legs, back no pretibial edema, no calf tenderness; peripheral pulses intact Neuro- alert, oriented x 3; no gross focal deficits, no tremors Skin- warm & dry Laboratory Results: Last 24 Hours Test 10/06/16 10:02 10/06/16 10:53 10/06/16 11:29 10/06/16 18:04 Hemoglobin 6.7 g/dL 7.8 g/dL Hematocrit 20.6 % 23.9 % Absolute Reticulocyte Count 0.09 10^6/uL Percent Reticulocyte Count 3.3 % Iron Level 20 mcg/dl Total Iron Binding Capacity 386 mcg/dl Transferrin 297 mg/dl Transferrin % Saturation 5 % Ferritin 27.4 ng/ml Vitamin B12 Level 335 pg/mL Folate 19.61 ng/mL Creatine Kinase MB Ratio Bedside Glucose 154 mg/dl Test 10/07/16 04:15 White Blood Count 6.67 K/uL Red Blood Count 3.30 M/uL Hemoglobin 8.7 g/dL Hematocrit 25.9 % Mean Corpuscular Volume 78.5 fL Mean Corpuscular Hemoglobin 26.4 pg Mean Corpuscular Hemoglobin Concent 33.6 g/dl Platelet Count 142 K/uL Mean Platelet Volume 9.3 fL Neutrophils (%) (Auto) 56.3 % Lymphocytes (%) (Auto) 29.5 % Monocytes (%) (Auto) 10.0 % Eosinophils (%) (Auto) 3.1 % Basophils (%) (Auto) 1.0 % Neutrophils # (Auto) 3.74 K/uL Lymphocytes # (Auto) 1.97 K/uL Monocytes # (Auto) 0.67 K/uL Eosinophils # (Auto) 0.21 K/uL Basophils # (Auto) 0.07 K/uL RDW Standard Deviation 52.1 fL RDW Coefficient of Variation 18.2 % Immature Granulocyte % (Auto) 0.1 % Immature Granulocyte # (Auto) 0.01 K/uL Polychromasia 1+ Sodium Level 141 mmol/L Potassium Level 4.0 mmol/L Chloride Level 107 mmol/L Carbon Dioxide Level 25 mmol/L Anion Gap 9.0 mmol/L Blood Urea Nitrogen 10 mg/dl Creatinine 1.00 mg/dl Est Creatinine Clear Calc Drug Dose 113.5 ml/min Estimated GFR () 95.1 Estimated GFR (Non- 82.0 BUN/Creatinine Ratio 10.0 Random Glucose 139 mg/dl Calcium Level 8.2 mg/dl Assessment & Plan 61 year old male with history of Alcohol Abuse, A fib not on anticoagulation, CHF Diastolic Type, DM, HTN, other problems noted below presenting with right lower leg bleeding. ANEMIA LIKELY SECONDARY TO LOWER LEG VARICOSE VEIN BLEEDING - Hg 6.7 on admission s/p 4 units pRBC Hg improved to 8.7 maintain Hg ~10 given possible demand ischemia Iron level 20, start Iron supplement wound care consulted will consult Podiatry ATRIAL FIBRILLATION IN RVR likely from medication non compliance and acute blood loss anemia usually on Metoprolol 50mg BID, resumed metoprolol on 12.5mg bid for marginal BP per cardiology, not a good candidate for anticoag due to possible GI bleed, medication non compliance, alcoholism echo: noted TSH elevated, T4 normal - HR improved to 90s - tolerating Metoprolol - continue Metoprolol 12.5mg bid Aspirin held due to recent bleeding appreciate Cardiology SVC input POSITIVE HEMOCCULT has history of hemorrhoids, AVM no deepak melena/hematochezia GI input appreciated may need outpatient EGD and colonoscopy ALCOHOLISM - Alcohol level 68 last drink night prior to admission - no signs of withdrawal continue Gabapentin monitor CHF, DIASTOLIC TYPE - no signs of volume overload - will monitor- DM 2 usually on metformin A1c 5 on ISS HYPERTENSION BP on the lower side Lisinopril held Metoprolol decreased - stable so far HISTORY OF LAUREN - CPAP ordered PSORIASIS follows with Dr. Denice rendon [facility] due to insurance issues close outpatient ff up GOUT on Allopurinol DEPRESSION Psych consulted appreciate the input Paroxetine increased DVT PROPHYLAXIS SCDs heparin contraindicated due to recent leg bleeding Disposition lives alone at home will need PT/OT eval Current Inpatient Medications: Current Inpatient Medications Medications (Trade) Dose Ordered Sig/Karen Route Start Time Stop Time Status Last Admin Dose Admin Ioversol (Optiray 320) 100 ml UD PRN IV 10/06/16 03:30 10/10/16 03:29 Metoprolol Tartrate (Lopressor Tab) 12.5 mg BID PO 10/06/16 21:00 11/05/16 20:59 10/06/16 20:22 12.5 MG Acetaminophen (Tylenol Tab) 650 mg Q4H PRN PO 10/06/16 06:30 11/05/16 06:29 Nitroglycerin (Nitrostat Tab) 0.4 mg UD PRN SL 10/06/16 06:30 11/05/16 06:29 Insulin Aspart (novoLOG ASPART) SLIDING SCALE If C... ACHS SC 10/06/16 06:45 11/05/16 06:44 10/06/16 11:07 1 UNITS Glucose (Glucose 40% Gel) 15-30 GRAMS 15 GRAMS... UD PRN PO 10/06/16 06:30 11/05/16 06:29 Glucose (Glucose Chew Tab) 4-8 Tablets 4 Tabl... UD PRN PO 10/06/16 06:30 11/05/16 06:29 Dextrose (Dextrose 50% 50ML Syringe) 25-50ML OF 50% DW IV FOR... UD PRN IV 10/06/16 06:30 11/05/16 06:29 Glucagon (Glucagon Inj) 1 mg UD PRN SQ 10/06/16 06:30 11/05/16 06:29 Allopurinol (Zyloprim Tab) 300 mg DAILYBB PO 10/07/16 06:00 11/06/16 05:59 10/07/16 05:56 300 MG Oxycodone HCl (Roxicodone Immediate Rel Tab) 5 mg Q6H PRN PO 10/06/16 06:30 10/20/16 06:29 Morphine Sulfate (MoRPHine SULFATE INJ) 4 mg Q3H PRN IV 10/06/16 06:30 10/20/16 06:29 Lorazepam (Ativan Inj) 1 mg ONE PRN IV 10/06/16 06:30 Thiamine HCl (Vitamin B-1 Tab) 100 mg QAM PO 10/07/16 09:00 11/06/16 08:59 Multivitamins (Multivitamin Tab) 1 tab QAM PO 10/07/16 09:00 11/06/16 08:59 Folic Acid (Folvite Tab) 1 mg QAM PO 10/07/16 09:00 11/06/16 08:59 Pantoprazole Sodium (Protonix Tab) 40 mg QAM PO 10/06/16 09:00 11/05/16 08:59 10/06/16 11:11 40 MG Gabapentin (Neurontin Tab) 600 mg Q8H PO 10/07/16 06:00 10/07/16 22:01 10/07/16 05:56 600 MG Gabapentin (Neurontin Tab) 600 mg Q12H PO 10/08/16 10:00 10/08/16 22:01 Gabapentin (Neurontin Tab) 600 mg Q24H PO 10/09/16 22:00 10/09/16 22:01 Paroxetine HCl (pAXil TAB) 40 mg QAM PO 10/07/16 09:00 11/06/16 08:59
--- NOTE | 2016-10-07 10:20 | Gastroenterology Progress Note ---
Progress Note Date of Service: Oct 07, 2016 Subjective Pt evaluation today including: conversation w/ patient, physical exam, chart review, lab review, review of inpatient medication list Pt laying in bed, awake, BiPAP on. Hgb improved to 8.7 from 6.7 after 4U PRBC transfusion. He had a BM today, w/o signs of rectal bleeding. Denies any abd pain, n/v. Had regular consistency breakfast today. Review of Systems Constitutional: No chills, No fever Respiratory: No cough, No shortness of breath Cardiac: No chest pain Abdomen: No GI bleeding, No nausea, No pain, No vomiting Medications Current Inpatient Medications Medications (Trade) Dose Ordered Sig/Karen Route Start Time Stop Time Status Last Admin Dose Admin Ioversol (Optiray 320) 100 ml UD PRN IV 10/06/16 03:30 10/10/16 03:29 Metoprolol Tartrate (Lopressor Tab) 12.5 mg BID PO 10/06/16 21:00 11/05/16 20:59 10/07/16 08:47 12.5 MG Acetaminophen (Tylenol Tab) 650 mg Q4H PRN PO 10/06/16 06:30 11/05/16 06:29 Nitroglycerin (Nitrostat Tab) 0.4 mg UD PRN SL 10/06/16 06:30 11/05/16 06:29 Insulin Aspart (novoLOG ASPART) SLIDING SCALE If C... ACHS SC 10/06/16 06:45 11/05/16 06:44 10/06/16 11:07 1 UNITS Glucose (Glucose 40% Gel) 15-30 GRAMS 15 GRAMS... UD PRN PO 10/06/16 06:30 11/05/16 06:29 Glucose (Glucose Chew Tab) 4-8 Tablets 4 Tabl... UD PRN PO 10/06/16 06:30 11/05/16 06:29 Dextrose (Dextrose 50% 50ML Syringe) 25-50ML OF 50% DW IV FOR... UD PRN IV 10/06/16 06:30 11/05/16 06:29 Glucagon (Glucagon Inj) 1 mg UD PRN SQ 10/06/16 06:30 11/05/16 06:29 Allopurinol (Zyloprim Tab) 300 mg DAILYBB PO 10/07/16 06:00 2/18/17 05:59 10/07/16 05:56 300 MG Oxycodone HCl (Roxicodone Immediate Rel Tab) 5 mg Q6H PRN PO 10/06/16 06:30 10/20/16 06:29 Lorazepam (Ativan Inj) 1 mg ONE PRN IV 10/06/16 06:30 Thiamine HCl (Vitamin B-1 Tab) 100 mg QAM PO 10/07/16 09:00 11/06/16 08:59 10/07/16 08:46 100 MG Multivitamins (Multivitamin Tab) 1 tab QAM PO 10/07/16 09:00 11/06/16 08:59 10/07/16 08:47 1 TAB Folic Acid (Folvite Tab) 1 mg QAM PO 10/07/16 09:00 11/06/16 08:59 10/07/16 08:47 1 MG Pantoprazole Sodium (Protonix Tab) 40 mg QAM PO 10/06/16 09:00 11/05/16 08:59 10/07/16 08:48 40 MG Gabapentin (Neurontin Tab) 600 mg Q8H PO 10/07/16 06:00 10/07/16 22:01 10/07/16 05:56 600 MG Gabapentin (Neurontin Tab) 600 mg Q12H PO 10/08/16 10:00 10/08/16 22:01 Gabapentin (Neurontin Tab) 600 mg Q24H PO 10/09/16 22:00 10/09/16 22:01 Paroxetine HCl (pAXil TAB) 40 mg QAM PO 10/07/16 09:00 11/06/16 08:59 10/07/16 08:47 40 MG Ferrous Sulfate (Feosol Tab) 325 mg BIDM PO 10/07/16 17:00 11/06/16 16:59 Objective Vital Signs Date Time Temp Pulse Resp B/P Pulse Ox O2 Delivery O2 Flow Rate FiO2 10/07/16 09:10 36.8 93 16 122/80 96 10/07/16 08:40 36.8 89 18 120/83 98 10/07/16 08:10 36.8 89 16 121/81 98 10/07/16 07:55 36.1 93 20 116/82 99 10/07/16 07:40 36.0 91 22 128/78 94 10/07/16 07:37 36.4 93 20 135/86 10/07/16 04:22 36.8 93 18 124/86 98 CPAP 10/07/16 04:00 CPAP 10/07/16 02:30 36.8 92 18 123/85 95 10/07/16 01:30 36.5 95 18 130/85 97 10/07/16 01:00 36.8 92 18 132/85 98 10/07/16 00:45 36.7 95 18 124/82 95 CPAP 10/07/16 00:45 36.7 95 20 124/82 95 10/07/16 00:30 36.7 94 18 141/88 97 10/06/16 23:59 95 CPAP 2.0 21 10/06/16 23:55 37.1 94 18 134/83 95 10/06/16 23:53 36.9 95 18 96 CPAP 10/06/16 22:55 36.9 90 18 117/76 96 10/06/16 22:47 75 97 21 10/06/16 22:25 37.0 92 18 120/77 96 10/06/16 22:21 36.8 95 17 117/76 97 Room Air 10/06/16 22:10 36.8 95 17 117/76 97 10/06/16 21:52 36.8 95 18 132/84 97 10/06/16 20:00 36.7 98 18 134/84 100 Room Air 10/06/16 20:00 100 Room Air 10/06/16 16:00 36.6 97 17 129/69 97 Nasal Cannula 2.0 10/06/16 16:00 93 Room Air 10/06/16 16:00 97 Room Air 10/06/16 14:47 36.6 91 24 122/80 98 10/06/16 14:13 36.7 91 15 120/77 99 10/06/16 13:37 36.7 90 24 91/71 100 10/06/16 13:02 36.7 90 22 134/83 100 10/06/16 12:25 36.7 91 19 117/72 98 10/06/16 12:10 36.7 99 21 130/76 95 10/06/16 12:00 36.7 90 14 130/76 100 Room Air 10/06/16 12:00 100 Room Air Physical Exam General Appearance: WD/WN, no apparent distress, + obese Neck: supple, thyroid normal, trachea midline Respiratory/Chest: no respiratory distress, no accessory muscle use, + decreased breath sounds Cardiovascular: regular rate, rhythm, no gallop, no murmur Abdomen: normal bowel sounds, non tender, soft Extremities: + pertinent finding (bilateral legs w generalized swelling; poor hygeine, old blood. ) Neurologic/Psych: alert, normal mood/affect, oriented x 3 Skin: normal color, no jaundice, no rash Laboratory Results Last 24 Hours Test 10/06/16 10:53 10/06/16 11:29 10/06/16 18:04 10/07/16 04:15 Creatine Kinase MB Ratio Bedside Glucose 154 mg/dl Hemoglobin 7.8 g/dL 8.7 g/dL Hematocrit 23.9 % 25.9 % White Blood Count 6.67 K/uL Red Blood Count 3.30 M/uL Mean Corpuscular Volume 78.5 fL Mean Corpuscular Hemoglobin 26.4 pg Mean Corpuscular Hemoglobin Concent 33.6 g/dl Platelet Count 142 K/uL Mean Platelet Volume 9.3 fL Neutrophils (%) (Auto) 56.3 % Lymphocytes (%) (Auto) 29.5 % Monocytes (%) (Auto) 10.0 % Eosinophils (%) (Auto) 3.1 % Basophils (%) (Auto) 1.0 % Neutrophils # (Auto) 3.74 K/uL Lymphocytes # (Auto) 1.97 K/uL Monocytes # (Auto) 0.67 K/uL Eosinophils # (Auto) 0.21 K/uL Basophils # (Auto) 0.07 K/uL RDW Standard Deviation 52.1 fL RDW Coefficient of Variation 18.2 % Immature Granulocyte % (Auto) 0.1 % Immature Granulocyte # (Auto) 0.01 K/uL Polychromasia 1+ Sodium Level 141 mmol/L Potassium Level 4.0 mmol/L Chloride Level 107 mmol/L Carbon Dioxide Level 25 mmol/L Anion Gap 9.0 mmol/L Blood Urea Nitrogen 10 mg/dl Creatinine 1.00 mg/dl Est Creatinine Clear Calc Drug Dose 113.5 ml/min Estimated GFR () 95.1 Estimated GFR (Non- 82.0 BUN/Creatinine Ratio 10.0 Random Glucose 139 mg/dl Calcium Level 8.2 mg/dl Assessment and Plan Impression Patient is a 61 year old male currently admitted for R leg bleeding due to varicose vein wound, anemia, Afib management. He tested heme positive though no blood in stool or dark tarry stools. He does have hx of int/ext hemorrhoids w colon AVM. Previously had bleeding of hemorrhoids, and does notice intermittent rectal bleeding. He had cancelled EGD/Colonoscopy evals in 2016 and never rescheduled. No s/s of deepak GI bleeding. His H/H improved w 4U PRBC transfusion from 6.4 to 8.7. No abd pain, n/v, tolerating diet well. Plan - Monitor H/H; transfuse prn - Continue Iron and FA supplements. - EGD/Colonoscopy evals are reasonable, though would prefer him to have cardiac workup completed, and a few days till ETOH level in system down. Will continue to follow and decide on timing of endoscopies in next few days -> if still here over weekend will give him CL diet and bowel prep on Tuesday for EGD and Colonoscopy on Tuesday. Otherwise if discharged, will arrange for these in outpt setting I performed a history and physical examination of the patient. I have discussed the patient's case, impression and plan with DUSTIN Hopper. Her note reflects my findings and plan. Continue current care. Consider bidirectional endoscopy if patient agrees in future. Giancarlo Castrejon MD
--- NOTE | 2016-10-07 14:13 | Cardiology Follow-Up ---
Subjective General Date of Service: Oct 07, 2016. Chief Complaint: follow up AF Pt evaluation today including: conversation w/ patient, physical exam History of Present Illness The patient is a 61 year old male seen in follow up. Patient 's energy level is much improved. Denies chest pain or palpitations. Allergies Coded Allergies: No Known Allergies (Unverified , 10/06/16) Social History Smoking Status: Never Smoker Hx Tobacco Use In Past Year?: No Hx Alcohol Use - Type And Amou: Yes (6 pack a day ) Hx Substance Use - Type And Am: No Problem List Medical Problems: (1) Acute pain of right wrist Status: Acute (2) Alcohol intoxication Status: Acute (3) Anemia Status: Acute (4) Atrial flutter Status: Acute (5) Bleeding from varicose veins of right lower extremity Status: Acute (6) Dehydration Status: Acute (7) Elevated troponin Status: Acute (8) Left hand pain Status: Acute (9) Open wound of right lower leg Status: Acute (10) Polyarthralgia Status: Acute (11) Precordial chest pain Status: Acute (12) Wrist pain, right Status: Acute Surgical Problems: (1) Hx of ankle fusion Status: Chronic Physical Exam Vital Signs Last Vital Signs Documentation Date Time Temp Pulse Resp B/P Pulse Ox O2 Delivery O2 Flow Rate FiO2 10/07/16 11:51 36.8 93 18 130/81 100 Room Air 10/07/16 04:00 Physical Exam Constitutional: Level of Distress: NAD Neck: supple Lungs: Auscultation: no wheezing, no rales/crackles Cardiovascular: Heart Auscultation: no murmurs, irregular rate rhythm Abdomen: Inspection & Palpation: non-distended, no tenderness, guarding & rebound Extremities: pertinent finding (trace to mild edema, psoriatic plaques noted) Assessment and Plan Assessment and Plan Impression: 61-year-old male 1. Chronic atrial flutter presented with RVR, now improved, ST changes suggestive of demand ischemia perhaps related to elevated ventricular rate in the setting of profound anemia, improved. Normal resting wall motion. Normal LVEF. 2. Acute on chronic anemia, stabilized after transfusion of 5 units PRBCs. 3. Ongoing alcohol use, likely malnutrition Recommendations: Continue metoprolol. Not and anticoagulation candidate. Laboratory Results Last 24 Hours Test 10/06/16 15:50 10/06/16 18:04 10/06/16 20:26 10/07/16 04:15 Bedside Glucose 139 mg/dl 161 mg/dl Hemoglobin 7.8 g/dL 8.7 g/dL Hematocrit 23.9 % 25.9 % White Blood Count 6.67 K/uL Red Blood Count 3.30 M/uL Mean Corpuscular Volume 78.5 fL Mean Corpuscular Hemoglobin 26.4 pg Mean Corpuscular Hemoglobin Concent 33.6 g/dl Platelet Count 142 K/uL Mean Platelet Volume 9.3 fL Neutrophils (%) (Auto) 56.3 % Lymphocytes (%) (Auto) 29.5 % Monocytes (%) (Auto) 10.0 % Eosinophils (%) (Auto) 3.1 % Basophils (%) (Auto) 1.0 % Neutrophils # (Auto) 3.74 K/uL Lymphocytes # (Auto) 1.97 K/uL Monocytes # (Auto) 0.67 K/uL Eosinophils # (Auto) 0.21 K/uL Basophils # (Auto) 0.07 K/uL RDW Standard Deviation 52.1 fL RDW Coefficient of Variation 18.2 % Immature Granulocyte % (Auto) 0.1 % Immature Granulocyte # (Auto) 0.01 K/uL Polychromasia 1+ Sodium Level 141 mmol/L Potassium Level 4.0 mmol/L Chloride Level 107 mmol/L Carbon Dioxide Level 25 mmol/L Anion Gap 9.0 mmol/L Blood Urea Nitrogen 10 mg/dl Creatinine 1.00 mg/dl Est Creatinine Clear Calc Drug Dose 113.5 ml/min Estimated GFR () 95.1 Estimated GFR (Non- 82.0 BUN/Creatinine Ratio 10.0 Random Glucose 139 mg/dl Calcium Level 8.2 mg/dl Test 10/07/16 12:01 10/07/16 13:30 Bedside Glucose 165 mg/dl Hemoglobin 9.8 g/dL Hematocrit 30.0 %
[2016-10-07] MEDS: FERROUS SULFATE 325 MG TAB PO SCH (17:50)
--- NOTE | 2016-10-07 23:45 | CONSULTATION REPORT ---
DATE OF CONSULTATION: 10/07/2016 PODIATRY CONSULTATION CONSULTATION FROM: Dr. Olivier Cunningham. CONSULTATION REGARDING: Diabetic foot care, elongated and thickened toenails, and calluses of both feet. HISTORY OF PRESENT ILLNESS: The patient had a bleeding varicose vein of the right lower leg, requiring 5 units of blood transfusion. He has very thick, deformed and friable toenails in both feet. He is a diabetic of long duration. PAST MEDICAL PROBLEMS: 1. Diabetes mellitus type 2. 2. Obesity. 3. Depression. 4. Gout. 5. Psoriatic arthritis. 6. Benign prostatic hypertrophy. 7. Hypertension. 8. Hyperlipidemia. 9. Asthma. 10. Paroxysmal atrial flutter. 11. LAUREN, on CPAP. 12. Alcohol abuse. 13. Diastolic dysfunction. 14. Chest pain. 15. Dehydration. 16. Alcohol intoxication. 17. Open wound of the right lower leg. 18. Anemia. 19. Atrial fibrillation with rapid ventricular response. 20. History of diabetic peripheral neuropathy. PAST SURGICAL HISTORY: S/P tonsillectomy, S/P colonoscopy, S/P mastoid surgery, S/P surgical manipulation of the left ankle joint with left ankle fusion. MEDICATIONS: Acetaminophen, allopurinol, dextrose, ferrous sulfate, folic acid, gabapentin, glucagon, glucose, NovoLog insulin, ioversol, lorazepam, metoprolol tartrate, multivitamin, nitroglycerin, oxycodone, pantoprazole, paroxetine and thiamine hydrochloride. ALLERGIES: No known drug allergies. PODIATRIC EVALUATION: VASCULAR: Pedal pulses were bilaterally nonpalpable. There was +2/4 edema in bilateral lower extremities. SVPFT was 3 seconds in all toes of both feet. NEUROLOGIC: Negative response to 5.07 gauge monofilament to all toes, dorsal and plantar of both feet. MUSCLE STRENGTH: 5/5 to dorsiflexion of both feet to 90 degrees at the ankles. ORTHOPEDIC EVALUATION: There were bunion deformities bilateral. Hammer toes 2, 3, 4 and 5 bilateral feet. Excessive forefoot varus deformity, excessive rearfoot valgus deformity and excessive subtalar joint pronation bilaterally. GAIT AND STATION: The patient is ambulatory without assistance. DERMATOLOGIC EVALUATION: There is no hair growth from the ankles to the toes bilateral. There are thick, deformed, friable and discolored toenails x10. All 10 are 4 mm thick, yellow-brown discoloration with dried blood, and they are 100% discolored. There are hyperpigmented areas on both legs. Note is made of a wound on the lower right lateral leg. Skin texture and color are abnormal. Skin temperature is cold to touch. There is the above-mentioned edema +2/4 and paresthesias and lack of sensation bilaterally. There are calluses on the right first MP joint and the right third toe and also on the left first MP joint. The patient's shoegear is athletic-type shoe, wide. DIAGNOSES: 1. Diabetes mellitus type 2, controlled. 2. Diabetic peripheral neuropathy of both lower extremities. 3. Onychomycosis x10. 4. Calluses, both feet. 5. Bunion deformities, both feet. 6. Hammer toe deformities, both feet. 7. Excessive forefoot varus and subtalar joint pronation bilateral. 8. Notice is made of multiple psoriatic plaques on both feet and both legs. PLAN AND TREATMENT: Initial evaluation was made today and consultation in [facility]. The patient is awake and alert, and I have discussed with him the possibility of him getting some diabetic shoes, this would give him more support and comfort in relieving many of his calluses on both feet and also may help with his ambulation due to his peripheral neuropathy. The mycotic toenails were debrided using manual nippers, both feet and all toenails. The calluses x3 were debrided using a #313 sterile chisel blade. There was slight bleeding of the right third toe on debridement of that callus, that was dressed using a triple antibiotic cream and dry sterile dressing, this could be removed tomorrow. The patient has been a patient of local [facility] but the local nut chopper was unable to continue servicing this patient and so he is in need of routine podiatric care on followup following his discharge from the hospital.
[2016-10-08] VITALS (7 sets, daily range): BP systolic 128–136; BP diastolic 82–92; PULSE 78–99; TEMP 35.7–36.8; O2SAT 95–98
[2016-10-08 06:11] LABS: BASO % 0.6 %; BASO ABS # 0.04 K/uL (0-0.2); COMPLETE YES; EOS % 4.1 %; IG% 0.1 %; LYMPH % 25.5 %; LYMPH ABS # 1.73 K/uL (1.2-3.4); MEAN CELL VOLUME 78.7 fL (80-100); MEAN CORPUSCULAR HEMOGLOBIN 25.6 pg (25-34); MEAN CORPUSCULAR HGB CONC 32.5 g/dl (32-36); MEAN PLATELET VOLUME 9.5 fL (7.4-10.4); MONO % 11.9 %; NEUT % 57.8 %; PLATELET COUNT 134 K/uL (130-400); RED BLOOD COUNT 3.56 M/uL (4.7-6.1); WHITE BLOOD COUNT 6.78 K/uL (4.8-10.8)
[2016-10-08] MEDS: ALLOPURINOL 300 MG TAB PO SCH (06:19)
[2016-10-08] MEDS: INSULIN ASPART 100 UNITS/ML 3 ML PEN SC SCH ×4 (09:17→20:19)
[2016-10-08] MEDS: FERROUS SULFATE 325 MG TAB PO SCH ×2 (09:18→16:00)
[2016-10-08] MEDS: THIAMINE HCL 100 MG TAB PO SCH (09:18)
[2016-10-08] MEDS: PANTOprazole SOD 40 MG TAB PO SCH (09:18)
[2016-10-08] MEDS: MULTIVITAMIN TAB PO SCH (09:18)
[2016-10-08] MEDS: PAROXETINE 20 MG TAB PO SCH (09:19)
[2016-10-08] MEDS: METOPROLOL TARTRATE 25 MG TAB PO SCH ×2 (09:19→20:28)
[2016-10-08] MEDS: GABAPENTIN 600MG Q12H DOSE PO SCH ×2 (09:20→20:28)
--- NOTE | 2016-10-08 11:11 | Cardiology Follow-Up ---
Subjective General Date of Service: Oct 08, 2016. Chief Complaint: follow up AF Pt evaluation today including: conversation w/ patient, physical exam History of Present Illness The patient is a 61 year old male seen in follow up. Pt feeling well. Telemetry reveals AFL at 95 bpm at rest. Hgb stable s/p 5 units PRBCs. Allergies Coded Allergies: No Known Allergies (Unverified , 10/06/16) Social History Smoking Status: Never Smoker Hx Tobacco Use In Past Year?: No Hx Alcohol Use - Type And Amou: Yes (6 pack a day ) Hx Substance Use - Type And Am: No Problem List Medical Problems: (1) Acute pain of right wrist Status: Acute (2) Alcohol intoxication Status: Acute (3) Anemia Status: Acute (4) Atrial flutter Status: Acute (5) Bleeding from varicose veins of right lower extremity Status: Acute (6) Dehydration Status: Acute (7) Elevated troponin Status: Acute (8) Left hand pain Status: Acute (9) Open wound of right lower leg Status: Acute (10) Polyarthralgia Status: Acute (11) Precordial chest pain Status: Acute (12) Wrist pain, right Status: Acute Surgical Problems: (1) Hx of ankle fusion Status: Chronic Physical Exam Vital Signs Last Vital Signs Documentation Date Time Temp Pulse Resp B/P Pulse Ox O2 Delivery O2 Flow Rate FiO2 10/08/16 07:43 36.5 93 20 134/91 95 CPAP 10/08/16 01:58 21 10/07/16 12:00 2.0 Physical Exam Constitutional: Level of Distress: NAD Neck: supple Lungs: Auscultation: no wheezing, no rales/crackles Cardiovascular: Heart Auscultation: no murmurs, irregular rate rhythm Abdomen: Inspection & Palpation: non-distended, no tenderness, guarding & rebound Extremities: pertinent finding (trace to mild edema, psoriatic plaques noted) Assessment and Plan Assessment and Plan Impression: 61-year-old male 1. Chronic atrial flutter presented with RVR, now improved, ST changes suggestive of demand ischemia perhaps related to elevated ventricular rate in the setting of profound anemia, improved. Normal resting wall motion. Normal LVEF. 2. Acute on chronic anemia, stabilized after transfusion of 5 units PRBCs. 3. Ongoing alcohol use, likely malnutrition Recommendations: Continue metoprolol.Increase dose to prior 25 mg BID. Not and anticoagulation candidate. Stable from cardiac perspective for endoscopy in if indicated. Will sign off. Dr Back is rounding this weekend. Please call with any questions or concerns. Laboratory Results Last 24 Hours Test 10/07/16 12:01 10/07/16 13:30 10/07/16 17:45 10/07/16 20:35 Bedside Glucose 165 mg/dl 161 mg/dl 131 mg/dl Hemoglobin 9.8 g/dL Hematocrit 30.0 % Test 10/08/16 05:47 10/08/16 07:25 White Blood Count 6.78 K/uL Red Blood Count 3.56 M/uL Hemoglobin 9.1 g/dL Hematocrit 28.0 % Mean Corpuscular Volume 78.7 fL Mean Corpuscular Hemoglobin 25.6 pg Mean Corpuscular Hemoglobin Concent 32.5 g/dl Platelet Count 134 K/uL Mean Platelet Volume 9.5 fL Neutrophils (%) (Auto) 57.8 % Lymphocytes (%) (Auto) 25.5 % Monocytes (%) (Auto) 11.9 % Eosinophils (%) (Auto) 4.1 % Basophils (%) (Auto) 0.6 % Neutrophils # (Auto) 3.91 K/uL Lymphocytes # (Auto) 1.73 K/uL Monocytes # (Auto) 0.81 K/uL Eosinophils # (Auto) 0.28 K/uL Basophils # (Auto) 0.04 K/uL RDW Standard Deviation 56.0 fL RDW Coefficient of Variation 19.5 % Immature Granulocyte % (Auto) 0.1 % Immature Granulocyte # (Auto) 0.01 K/uL Bedside Glucose 128 mg/dl
--- NOTE | 2016-10-08 12:04 | Psychiatric Progress Notes ---
Psychiatric Progress Note Date of Service Oct 08, 2016. Notes ID: Patient reviewed with liaison nurse. Initial consult reviewed completed by Dr. Dickens on 10/06/15. Patient admit with hx of anxiety/depression and ETOH use, Afib, recommend increased Paxil. CC: "I'm need some time to readjust/think about therapy" HPI: no issues overnight, joking, states he is feeling better, tolerating increase in Paxil. ROS: denies panic, depression/SI, slept OK MSE: alert, cooperative, speech normal, thoughts organized, no psychosis Imp: same as initial consult Plan: would maintain Paxil at 40 mg, would consider EKG before additional titration, cards following, desires PCP continue to prescribe still declines therapy referral
--- NOTE | 2016-10-08 12:25 | Progress Note ---
Progress Note GI quick note: Patient is a 61 year old male currently admitted for R leg bleeding due to varicose vein wound, anemia, Afib management. He tested heme positive though no blood in stool or dark tarry stools. He does have hx of int/ext hemorrhoids w colon AVM. Previously had bleeding of hemorrhoids, and does notice intermittent rectal bleeding. He had cancelled EGD/Colonoscopy evals in 2016 and never rescheduled. I have ordered EGD and Colonoscopy on 10/11/16 to be completed if pt is not discharged. Bowel prep also ordered. If he is discharged over the weekend, will arrange for outpt endoscopies instead. (Johana Owens, DUSTIN)
[2016-10-08] MEDS ORDERED: POLYETHYLENE (MIRALAX) 17 GM PACK PO ONE (12:42)
--- NOTE | 2016-10-08 18:52 | Progress Note ---
Medicine Progress Note Date & Time of Visit: Oct 08, 2016 at 18:51. Subjective seen sitting up in bed comfortable, alert states he feels improved compared to yesterday somewhat dyspneic with exertion but no cough, sputum, chest pain no abdominal pain normal BMs denies other symptoms Objective Last 8 Hrs Date Time Temp Pulse Resp B/P Pulse Ox O2 Delivery O2 Flow Rate FiO2 10/08/16 16:39 10/08/16 16:00 Room Air 10/08/16 15:39 36.8 90 18 128/84 97 10/08/16 12:00 Room Air 10/08/16 11:51 36.3 96 20 134/82 97 Physical Exam: General- oriented x 3, not in distress, speaks in sentences with no effort Eyes-anicteric Neck- no JVD Lungs- clear breath sounds, no rales/wheezes b/l Heart- normal rate, irregularly irregular rhythm; no murmur Abdomen- normal bowel sounds, soft, nontender Extremities- right lower leg: wound with dressing in place, clean/dry (+) psoriatic plaques on the elbow, knees,legs, back no pretibial edema, no calf tenderness; peripheral pulses intact Neuro- alert, oriented x 3; no gross focal deficits, no tremors Skin- warm & dry Laboratory Results: Last 24 Hours Test 10/07/16 20:35 10/08/16 05:47 10/08/16 07:25 10/08/16 11:06 Bedside Glucose 131 mg/dl 128 mg/dl 154 mg/dl White Blood Count 6.78 K/uL Red Blood Count 3.56 M/uL Hemoglobin 9.1 g/dL Hematocrit 28.0 % Mean Corpuscular Volume 78.7 fL Mean Corpuscular Hemoglobin 25.6 pg Mean Corpuscular Hemoglobin Concent 32.5 g/dl Platelet Count 134 K/uL Mean Platelet Volume 9.5 fL Neutrophils (%) (Auto) 57.8 % Lymphocytes (%) (Auto) 25.5 % Monocytes (%) (Auto) 11.9 % Eosinophils (%) (Auto) 4.1 % Basophils (%) (Auto) 0.6 % Neutrophils # (Auto) 3.91 K/uL Lymphocytes # (Auto) 1.73 K/uL Monocytes # (Auto) 0.81 K/uL Eosinophils # (Auto) 0.28 K/uL Basophils # (Auto) 0.04 K/uL RDW Standard Deviation 56.0 fL RDW Coefficient of Variation 19.5 % Immature Granulocyte % (Auto) 0.1 % Immature Granulocyte # (Auto) 0.01 K/uL Test 10/08/16 16:36 Bedside Glucose 131 mg/dl Assessment & Plan 61 year old male with history of Alcohol Abuse, A fib not on anticoagulation, CHF Diastolic Type, DM, HTN, other problems noted below presenting with right lower leg bleeding. ANEMIA LIKELY SECONDARY TO LOWER LEG VARICOSE VEIN BLEEDING r/o GI BLEED - Hg 6.7 on admission s/p 5 units pRBC Hg improved to 9.1 Iron level 20, Iron supplement - for possible EGD on Tuesday wound healing well wound care consulted podiatry consulted ATRIAL FIBRILLATION IN RVR likely from medication non compliance and acute blood loss anemia usually on Metoprolol 50mg BID, resumed metoprolol on 12.5mg bid for marginal BP per cardiology, not a good candidate for anticoag due to possible GI bleed, medication non compliance, alcoholism echo: noted TSH elevated, T4 normal - HR improved to 90s - tolerating Metoprolol - continue Metoprolol 25mg bid Aspirin held due to recent bleeding not an anticoagulation candidate appreciate Cardiology SVC input POSITIVE HEMOCCULT has history of hemorrhoids, AVM no deepak melena/hematochezia GI input appreciated possible EGD and colonoscopy on Tuesday ALCOHOLISM - Alcohol level 68 last drink night prior to admission - no signs of withdrawal continue Gabapentin monitor CHF, DIASTOLIC TYPE - no signs of volume overload - will monitor Nebs ordered DM 2 usually on metformin A1c 5 on ISS HYPERTENSION BP on the lower side Lisinopril held continue Metoprolol - stable so far HISTORY OF LAUREN - CPAP ordered PSORIASIS follows with Dr. Galdamez off [facility] due to insurance issues close outpatient ff up GOUT on Allopurinol DEPRESSION Psych consulted appreciate the input Paroxetine increased DVT PROPHYLAXIS SCDs heparin contraindicated due to recent leg bleeding Disposition lives alone at home will need PT/OT eval Current Inpatient Medications: Current Inpatient Medications Medications (Trade) Dose Ordered Sig/Karen Route Start Time Stop Time Status Last Admin Dose Admin Ioversol (Optiray 320) 100 ml UD PRN IV 10/06/16 03:30 10/10/16 03:29 Acetaminophen (Tylenol Tab) 650 mg Q4H PRN PO 10/06/16 06:30 11/05/16 06:29 Nitroglycerin (Nitrostat Tab) 0.4 mg UD PRN SL 10/06/16 06:30 11/05/16 06:29 Insulin Aspart (novoLOG ASPART) SLIDING SCALE If C... ACHS SC 10/06/16 06:45 11/05/16 06:44 10/06/16 11:07 1 UNITS Glucose (Glucose 40% Gel) 15-30 GRAMS 15 GRAMS... UD PRN PO 10/06/16 06:30 11/05/16 06:29 Glucose (Glucose Chew Tab) 4-8 Tablets 4 Tabl... UD PRN PO 10/06/16 06:30 11/05/16 06:29 Dextrose (Dextrose 50% 50ML Syringe) 25-50ML OF 50% DW IV FOR... UD PRN IV 10/06/16 06:30 11/05/16 06:29 Glucagon (Glucagon Inj) 1 mg UD PRN SQ 10/06/16 06:30 11/05/16 06:29 Allopurinol (Zyloprim Tab) 300 mg DAILYBB PO 10/07/16 06:00 11/06/16 05:59 10/08/16 06:19 300 MG Oxycodone HCl (Roxicodone Immediate Rel Tab) 5 mg Q6H PRN PO 10/06/16 06:30 10/20/16 06:29 Lorazepam (Ativan Inj) 1 mg ONE PRN IV 10/06/16 06:30 Thiamine HCl (Vitamin B-1 Tab) 100 mg QAM PO 10/07/16 09:00 11/06/16 08:59 10/08/16 09:18 100 MG Multivitamins (Multivitamin Tab) 1 tab QAM PO 10/07/16 09:00 11/06/16 08:59 10/08/16 09:18 1 TAB Folic Acid (Folvite Tab) 1 mg QAM PO 10/07/16 09:00 11/06/16 08:59 10/08/16 09:19 1 MG Pantoprazole Sodium (Protonix Tab) 40 mg QAM PO 10/06/16 09:00 11/05/16 08:59 10/08/16 09:18 40 MG Gabapentin (Neurontin Tab) 600 mg Q12H PO 10/08/16 10:00 10/08/16 22:01 10/08/16 09:20 600 MG Gabapentin (Neurontin Tab) 600 mg Q24H PO 10/09/16 22:00 10/09/16 22:01 Paroxetine HCl (pAXil TAB) 40 mg QAM PO 10/07/16 09:00 11/06/16 08:59 10/08/16 09:19 40 MG Ferrous Sulfate (Feosol Tab) 325 mg BIDM PO 10/07/16 17:00 11/06/16 16:59 10/08/16 16:00 325 MG Metoprolol Tartrate (Lopressor Tab) 25 mg BID PO 10/08/16 21:00 11/07/16 20:59 Polyethylene (Miralax Powder Packet) 119 gm ONE ONCE PO 10/10/16 17:00 10/10/16 17:01 Bisacodyl (Dulcolax Tab) 20 mg ONE ONCE PO 10/10/16 17:00 10/10/16 17:01
[2016-10-08 20:06] LABS: BUN/CREATININE RATIO 8.7 (10-20); CALCIUM 8.7 mg/dl (8.5-10.1); CREATININE 1.1 mg/dl (0.60-1.40); POTASSIUM 4.2 mmol/L (3.5-5.1)
[2016-10-08] MEDS ORDERED: LEVALBUTEROL/IPRATROPIUM NEB INH SCH (21:00)
[2016-10-09] VITALS (13 sets, daily range): BP systolic 118–138; BP diastolic 67–96; PULSE 82–98; TEMP 36.3–37; O2SAT 93–100
[2016-10-09] MEDS: LEVALBUTEROL 1.25MG/0.5ML NEB INH SCH ×4 (03:00→19:23)
[2016-10-09] MEDS: IPRATROPIUM BROMIDE NEB SOLN 0.02% 2.5 ML VIAL INH SCH ×4 (03:00→19:22)
[2016-10-09] MEDS: ALLOPURINOL 300 MG TAB PO SCH ×2 (06:58→08:36)
[2016-10-09 07:17] LABS: BASO % 0.8 %; BASO ABS # 0.05 K/uL (0-0.2); COMPLETE YES; EOS % 3.7 %; HEMATOCRIT 28.5 % (42-52); IG% 0.2 %; LYMPH % 24.3 %; LYMPH ABS # 1.57 K/uL (1.2-3.4); MEAN CELL VOLUME 80.1 fL (80-100); MEAN CORPUSCULAR HEMOGLOBIN 26.1 pg (25-34); MEAN CORPUSCULAR HGB CONC 32.6 g/dl (32-36); MEAN PLATELET VOLUME 9.6 fL (7.4-10.4); MONO % 9.6 %; NEUT % 61.4 %; PLATELET COUNT 145 K/uL (130-400); RED BLOOD COUNT 3.56 M/uL (4.7-6.1); WHITE BLOOD COUNT 6.47 K/uL (4.8-10.8)
[2016-10-09] MEDS: INSULIN ASPART 100 UNITS/ML 3 ML PEN SC SCH ×4 (08:35→20:43)
[2016-10-09] MEDS: THIAMINE HCL 100 MG TAB PO SCH (08:36)
[2016-10-09] MEDS: PAROXETINE 20 MG TAB PO SCH (08:36)
[2016-10-09] MEDS: FERROUS SULFATE 325 MG TAB PO SCH ×2 (08:36→17:47)
[2016-10-09] MEDS: MULTIVITAMIN TAB PO SCH (08:37)
[2016-10-09] MEDS: PANTOprazole SOD 40 MG TAB PO SCH (08:37)
[2016-10-09] MEDS: METOPROLOL TARTRATE 25 MG TAB PO SCH ×2 (08:37→21:01)
--- NOTE | 2016-10-09 17:08 | Progress Note ---
Medicine Progress Note Date & Time of Visit: Oct 09, 2016 at 17:02. Subjective feels improved today ambulates with no dizziness, weakness feels somewhat short of breath with exertion no chest pain, palpitations no abdominal pain ,nausea, melena/hematochezia no tremors, hallucinations denies other symptoms Objective Last 8 Hrs Date Time Temp Pulse Resp B/P Pulse Ox O2 Delivery O2 Flow Rate FiO2 10/09/16 15:15 36.9 94 16 135/88 96 Room Air 10/09/16 14:25 84 20 95 Room Air 10/09/16 12:00 Room Air 10/09/16 11:21 36.5 94 16 135/90 96 Room Air Physical Exam: General- oriented x 3, not in distress, speaks in sentences with no effort Eyes-anicteric Neck- no JVD Lungs- clear breath sounds bilaterally Heart- normal rate, irregularly irregular rhythm; no murmur Abdomen- normal bowel sounds, soft, nontender Extremities- right lower leg: wound with dressing in place, clean/dry (+) psoriatic plaques on the elbow, knees,legs, back no pretibial edema, no calf tenderness; peripheral pulses intact Neuro- alert, oriented x 3; no gross focal deficits, no tremors Skin- warm & dry Laboratory Results: Last 24 Hours Test 10/08/16 19:26 10/08/16 20:12 10/09/16 06:15 10/09/16 07:36 Sodium Level 139 mmol/L Potassium Level 4.2 mmol/L Chloride Level 105 mmol/L Carbon Dioxide Level 23 mmol/L Anion Gap 11.0 mmol/L Blood Urea Nitrogen 10 mg/dl Creatinine 1.10 mg/dl Est Creatinine Clear Calc Drug Dose 103.7 ml/min Estimated GFR () 84.7 Estimated GFR (Non- 73.1 BUN/Creatinine Ratio 8.7 Random Glucose 90 mg/dl Calcium Level 8.7 mg/dl Bedside Glucose 124 mg/dl 123 mg/dl White Blood Count 6.47 K/uL Red Blood Count 3.56 M/uL Hemoglobin 9.3 g/dL Hematocrit 28.5 % Mean Corpuscular Volume 80.1 fL Mean Corpuscular Hemoglobin 26.1 pg Mean Corpuscular Hemoglobin Concent 32.6 g/dl Platelet Count 145 K/uL Mean Platelet Volume 9.6 fL Neutrophils (%) (Auto) 61.4 % Lymphocytes (%) (Auto) 24.3 % Monocytes (%) (Auto) 9.6 % Eosinophils (%) (Auto) 3.7 % Basophils (%) (Auto) 0.8 % Neutrophils # (Auto) 3.98 K/uL Lymphocytes # (Auto) 1.57 K/uL Monocytes # (Auto) 0.62 K/uL Eosinophils # (Auto) 0.24 K/uL Basophils # (Auto) 0.05 K/uL RDW Standard Deviation 57.3 fL RDW Coefficient of Variation 19.6 % Immature Granulocyte % (Auto) 0.2 % Immature Granulocyte # (Auto) 0.01 K/uL Test 10/09/16 11:35 10/09/16 16:03 Bedside Glucose 123 mg/dl 137 mg/dl Assessment & Plan 61 year old male with history of Alcohol Abuse, A fib not on anticoagulation, CHF Diastolic Type, DM, HTN, other problems noted below presenting with right lower leg bleeding. ANEMIA LIKELY SECONDARY TO LOWER LEG VARICOSE VEIN BLEEDING r/o GI BLEED - Hg 6.7 on admission s/p 5 units pRBC Hg improved to 9.3 Iron level 20, Iron supplement - for possible EGD on Tuesday wound healing well wound care consulted podiatry consulted ATRIAL FIBRILLATION IN RVR likely from medication non compliance and acute blood loss anemia usually on Metoprolol 50mg BID, resumed metoprolol on 12.5mg bid for marginal BP per cardiology, not a good candidate for anticoag due to possible GI bleed, medication non compliance, alcoholism echo: noted TSH elevated, T4 normal - HR improved to 90s - tolerating Metoprolol - continue Metoprolol 25mg bid Aspirin held due to recent bleeding not an anticoagulation candidate appreciate Cardiology SVC input POSITIVE HEMOCCULT has history of hemorrhoids, AVM no deepak melena/hematochezia GI input appreciated possible EGD and colonoscopy on Tuesday DYSPNEA ON EXERTION reports this is chronic, actually improving echo: no CHF CT chest: no PE possible pulmonary hypertension from LAUREN? check pulse ox after ambulation ALCOHOLISM - Alcohol level 68 last drink night prior to admission - no signs of withdrawal continue Gabapentin monitor CHF, DIASTOLIC TYPE - no signs of volume overload Nebs ordered DM 2 usually on metformin A1c 5 on ISS HYPERTENSION continue Metoprolol - stable so far HISTORY OF LAUREN - CPAP ordered PSORIASIS follows with Dr. Denice off Humira due to insurance issues close outpatient ff up GOUT on Allopurinol DEPRESSION Psych consulted appreciate the input Paroxetine increased DVT PROPHYLAXIS SCDs heparin contraindicated due to recent leg bleeding Disposition lives alone at home anticipate d/c home after EGD/Colonoscopy Current Inpatient Medications: Current Inpatient Medications Medications (Trade) Dose Ordered Sig/Karen Route Start Time Stop Time Status Last Admin Dose Admin Ioversol (Optiray 320) 100 ml UD PRN IV 10/06/16 03:30 10/10/16 03:29 Acetaminophen (Tylenol Tab) 650 mg Q4H PRN PO 10/06/16 06:30 11/05/16 06:29 Nitroglycerin (Nitrostat Tab) 0.4 mg UD PRN SL 10/06/16 06:30 11/05/16 06:29 Insulin Aspart (novoLOG ASPART) SLIDING SCALE If C... ACHS SC 10/06/16 06:45 11/05/16 06:44 10/06/16 11:07 1 UNITS Glucose (Glucose 40% Gel) 15-30 GRAMS 15 GRAMS... UD PRN PO 10/06/16 06:30 11/05/16 06:29 Glucose (Glucose Chew Tab) 4-8 Tablets 4 Tabl... UD PRN PO 10/06/16 06:30 11/05/16 06:29 Dextrose (Dextrose 50% 50ML Syringe) 25-50ML OF 50% DW IV FOR... UD PRN IV 10/06/16 06:30 11/05/16 06:29 Glucagon (Glucagon Inj) 1 mg UD PRN SQ 10/06/16 06:30 11/05/16 06:29 Allopurinol (Zyloprim Tab) 300 mg DAILYBB PO 10/07/16 06:00 11/06/16 05:59 10/09/16 08:36 300 MG Oxycodone HCl (Roxicodone Immediate Rel Tab) 5 mg Q6H PRN PO 10/06/16 06:30 10/20/16 06:29 Lorazepam (Ativan Inj) 1 mg ONE PRN IV 10/06/16 06:30 Thiamine HCl (Vitamin B-1 Tab) 100 mg QAM PO 10/07/16 09:00 11/06/16 08:59 10/09/16 08:36 100 MG Multivitamins (Multivitamin Tab) 1 tab QAM PO 10/07/16 09:00 11/06/16 08:59 10/09/16 08:37 1 TAB Folic Acid (Folvite Tab) 1 mg QAM PO 10/07/16 09:00 11/06/16 08:59 10/09/16 08:37 1 MG Pantoprazole Sodium (Protonix Tab) 40 mg QAM PO 10/06/16 09:00 11/05/16 08:59 10/09/16 08:37 40 MG Gabapentin (Neurontin Tab) 600 mg Q24H PO 10/09/16 22:00 10/09/16 22:01 Paroxetine HCl (pAXil TAB) 40 mg QAM PO 10/07/16 09:00 11/06/16 08:59 10/09/16 08:36 40 MG Ferrous Sulfate (Feosol Tab) 325 mg BIDM PO 10/07/16 17:00 11/06/16 16:59 10/09/16 08:36 325 MG Metoprolol Tartrate (Lopressor Tab) 25 mg BID PO 10/08/16 21:00 11/07/16 20:59 10/09/16 08:37 25 MG Polyethylene (Miralax Powder Packet) 119 gm ONE ONCE PO 10/10/16 17:00 10/10/16 17:01 Bisacodyl (Dulcolax Tab) 20 mg ONE ONCE PO 10/10/16 17:00 10/10/16 17:01 Ipratropium Elk (Atrovent 0.02% 0.5MG/2.5ML Neb) 0.5 mg Q6R INH 10/09/16 03:00 11/08/16 02:59 10/09/16 14:25 0.5 MG Levalbuterol (Xopenex 1.25MG/ 0.5ML Neb) 1.25 mg Q6R INH 10/09/16 03:00 11/08/16 02:59 10/09/16 14:25 1.25 MG
[2016-10-09] MEDS ORDERED: GABAPENTIN 600MG X1 DOSE PO SCH (22:00)
[2016-10-10] VITALS (13 sets, daily range): BP systolic 118–135; BP diastolic 67–89; PULSE 78–96; TEMP 36.5–36.9; O2SAT 93–100
[2016-10-10] MEDS: INSULIN ASPART 100 UNITS/ML 3 ML PEN SC SCH ×4 (06:30→21:00)
[2016-10-10 07:10] LABS: BASO % 0.5 %; BASO ABS # 0.03 K/uL (0-0.2); COMPLETE YES; EOS % 4.2 %; HEMATOCRIT 29.4 % (42-52); IG% 0.2 %; LYMPH % 27.3 %; LYMPH ABS # 1.51 K/uL (1.2-3.4); MEAN CELL VOLUME 80.8 fL (80-100); MEAN CORPUSCULAR HEMOGLOBIN 25.8 pg (25-34); MEAN PLATELET VOLUME 9.5 fL (7.4-10.4); MONO % 9.9 %; NEUT % 57.9 %; PLATELET COUNT 152 K/uL (130-400); RED BLOOD COUNT 3.64 M/uL (4.7-6.1); WHITE BLOOD COUNT 5.53 K/uL (4.8-10.8)
[2016-10-10] MEDS: IPRATROPIUM BROMIDE NEB SOLN 0.02% 2.5 ML VIAL INH SCH ×2 (07:24→14:33)
[2016-10-10] MEDS: LEVALBUTEROL 1.25MG/0.5ML NEB INH SCH ×2 (07:25→14:33)
[2016-10-10] MEDS: METOPROLOL TARTRATE 25 MG TAB PO SCH ×2 (08:23→21:24)
[2016-10-10] MEDS: FERROUS SULFATE 325 MG TAB PO SCH ×2 (08:23→16:42)
[2016-10-10] MEDS: PAROXETINE 20 MG TAB PO SCH (08:24)
[2016-10-10] MEDS: THIAMINE HCL 100 MG TAB PO SCH (08:24)
[2016-10-10] MEDS: MULTIVITAMIN TAB PO SCH (08:25)
[2016-10-10] MEDS: PANTOprazole SOD 40 MG TAB PO SCH (08:25)
[2016-10-10] MEDS ORDERED: BISACODYL 5 MG TABEC PO ONE (17:00)
[2016-10-10] MEDS ORDERED: POLYETHYLENE (MIRALAX) 17 GM PACK PO ONE (17:00)
--- NOTE | 2016-10-10 17:51 | Progress Note ---
Medicine Progress Note Date & Time of Visit: Oct 10, 2016 at 17:46. Subjective patient comfortable, resting report cough with greenish sputum has nasal congestion no shortness of breath denies abdominal pain, melena no other symptoms Objective Last 8 Hrs Date Time Temp Pulse Resp B/P Pulse Ox O2 Delivery O2 Flow Rate FiO2 10/10/16 15:11 36.7 82 20 120/83 96 10/10/16 13:50 87 20 98 Nasal Cannula 10/10/16 12:00 96 Room Air 10/10/16 11:38 36.9 94 20 135/88 96 Physical Exam: General- oriented x 3, not in distress, speaks in sentences with no effort Eyes-anicteric Neck- no JVD Lungs- clear breath sounds bilaterally, no rales/wheezes Heart- normal rate, irregularly irregular rhythm; no murmur Abdomen- normal bowel sounds, soft, nontender Extremities- right lower leg: wound with dressing in place, clean/dry (+) psoriatic plaques on the elbow, knees,legs, back no pretibial edema, no calf tenderness; peripheral pulses intact Neuro- alert, oriented x 3; no gross focal deficits, no tremors Skin- warm & dry Laboratory Results: Last 24 Hours Test 10/09/16 20:08 10/10/16 06:46 10/10/16 07:09 10/10/16 11:19 Bedside Glucose 131 mg/dl 125 mg/dl 137 mg/dl White Blood Count 5.53 K/uL Red Blood Count 3.64 M/uL Hemoglobin 9.4 g/dL Hematocrit 29.4 % Mean Corpuscular Volume 80.8 fL Mean Corpuscular Hemoglobin 25.8 pg Mean Corpuscular Hemoglobin Concent 32.0 g/dl Platelet Count 152 K/uL Mean Platelet Volume 9.5 fL Neutrophils (%) (Auto) 57.9 % Lymphocytes (%) (Auto) 27.3 % Monocytes (%) (Auto) 9.9 % Eosinophils (%) (Auto) 4.2 % Basophils (%) (Auto) 0.5 % Neutrophils # (Auto) 3.20 K/uL Lymphocytes # (Auto) 1.51 K/uL Monocytes # (Auto) 0.55 K/uL Eosinophils # (Auto) 0.23 K/uL Basophils # (Auto) 0.03 K/uL RDW Standard Deviation 57.2 fL RDW Coefficient of Variation 19.7 % Immature Granulocyte % (Auto) 0.2 % Immature Granulocyte # (Auto) 0.01 K/uL Test 10/10/16 16:11 Bedside Glucose 101 mg/dl Assessment & Plan 61 year old male with history of Alcohol Abuse, A fib not on anticoagulation, CHF Diastolic Type, DM, HTN, other problems noted below presenting with right lower leg bleeding. ANEMIA LIKELY SECONDARY TO LOWER LEG VARICOSE VEIN BLEEDING r/o GI BLEED - Hg 6.7 on admission s/p 5 units pRBC Hg improved to 9.4 Iron level 20, Iron supplement - for EGD on Tuesday wound healing well wound care consulted podiatry consulted ATRIAL FIBRILLATION IN RVR likely from medication non compliance and acute blood loss anemia usually on Metoprolol 50mg BID, resumed metoprolol on 12.5mg bid for marginal BP per cardiology, not a good candidate for anticoag due to possible GI bleed, medication non compliance, alcoholism echo: noted TSH elevated, T4 normal - HR improving - tolerating Metoprolol - continue Metoprolol 25mg bid Aspirin held due to recent bleeding not an anticoagulation candidate appreciate Cardiology SVC input POSITIVE HEMOCCULT has history of hemorrhoids, AVM no deepak melena/hematochezia GI input appreciated EGD and colonoscopy on Tuesday DYSPNEA ON EXERTION reports this is chronic, actually improving echo: no CHF CT chest: no PE possible pulmonary hypertension from LAUREN? check pulse ox after ambulation: >90% == will start Doxycycline for possible sinusitis, bronchitis continue Nebs ALCOHOLISM - Alcohol level 68 last drink night prior to admission - no signs of withdrawal continue Gabapentin monitor CHF, DIASTOLIC TYPE - no signs of volume overload Nebs ordered DM 2 usually on metformin A1c 5 on ISS HYPERTENSION continue Metoprolol - stable so far HISTORY OF LAUREN - CPAP ordered PSORIASIS follows with Dr. Denice Fuller due to insurance issues close outpatient ff up GOUT on Allopurinol DEPRESSION Psych consulted appreciate the input Paroxetine increased DVT PROPHYLAXIS SCDs heparin contraindicated due to recent leg bleeding, r/o gi bleed Disposition lives alone at home anticipate d/c home after EGD/Colonoscopy Current Inpatient Medications: Current Inpatient Medications Medications (Trade) Dose Ordered Sig/Karen Route Start Time Stop Time Status Last Admin Dose Admin Acetaminophen (Tylenol Tab) 650 mg Q4H PRN PO 10/06/16 06:30 11/05/16 06:29 Nitroglycerin (Nitrostat Tab) 0.4 mg UD PRN SL 10/06/16 06:30 11/05/16 06:29 Insulin Aspart (novoLOG ASPART) SLIDING SCALE If C... ACHS SC 10/06/16 06:45 11/05/16 06:44 10/06/16 11:07 1 UNITS Glucose (Glucose 40% Gel) 15-30 GRAMS 15 GRAMS... UD PRN PO 10/06/16 06:30 11/05/16 06:29 Glucose (Glucose Chew Tab) 4-8 Tablets 4 Tabl... UD PRN PO 10/06/16 06:30 11/05/16 06:29 Dextrose (Dextrose 50% 50ML Syringe) 25-50ML OF 50% DW IV FOR... UD PRN IV 10/06/16 06:30 11/05/16 06:29 Glucagon (Glucagon Inj) 1 mg UD PRN SQ 10/06/16 06:30 11/05/16 06:29 Allopurinol (Zyloprim Tab) 300 mg DAILYBB PO 10/07/16 06:00 11/06/16 05:59 10/09/16 08:36 300 MG Oxycodone HCl (Roxicodone Immediate Rel Tab) 5 mg Q6H PRN PO 10/06/16 06:30 10/20/16 06:29 Lorazepam (Ativan Inj) 1 mg ONE PRN IV 10/06/16 06:30 Thiamine HCl (Vitamin B-1 Tab) 100 mg QAM PO 10/07/16 09:00 11/06/16 08:59 10/10/16 08:24 100 MG Multivitamins (Multivitamin Tab) 1 tab QAM PO 10/07/16 09:00 11/06/16 08:59 10/09/16 08:37 1 TAB Folic Acid (Folvite Tab) 1 mg QAM PO 10/07/16 09:00 11/06/16 08:59 10/10/16 08:24 1 MG Pantoprazole Sodium (Protonix Tab) 40 mg QAM PO 10/06/16 09:00 11/05/16 08:59 10/10/16 08:25 40 MG Paroxetine HCl (pAXil TAB) 40 mg QAM PO 10/07/16 09:00 11/06/16 08:59 10/10/16 08:24 40 MG Ferrous Sulfate (Feosol Tab) 325 mg BIDM PO 10/07/16 17:00 11/06/16 16:59 10/10/16 16:42 325 MG Metoprolol Tartrate (Lopressor Tab) 25 mg BID PO 10/08/16 21:00 11/07/16 20:59 10/10/16 08:23 25 MG Ipratropium Ray (Atrovent Hfa Inhaler) 2 puffs Q6RWA INH 10/10/16 21:00 11/09/16 20:59 Levalbuterol (Xopenex Hfa Inhaler) 2 puffs Q6RWA INH 10/10/16 21:00 11/09/16 20:59
[2016-10-10] MEDS: DOXYCYCLINE HYCLATE 100 MG CAP PO SCH (21:00)
[2016-10-10] MEDS ORDERED: LEValbuterol HFA 15GM INHALER INH SCH (21:00)
[2016-10-10] MEDS ORDERED: IPRATROPIUM BROMIDE HFA INHALER INH SCH (21:00)
[2016-10-11] VITALS: BP 114/77; PULSE 90; TEMP 36.7; O2SAT 91
[2016-10-11 04:00] VITALS: BP 127/76; PULSE 89; TEMP 36.6; O2SAT 96
[2016-10-11 06:35] LABS: BASO % 0.6 %; BASO ABS # 0.03 K/uL (0-0.2); COMPLETE YES; HEMATOCRIT 28.4 % (42-52); IG% 0.2 %; LYMPH % 22.5 %; LYMPH ABS # 1.08 K/uL (1.2-3.4); MEAN CORPUSCULAR HEMOGLOBIN 25.6 pg (25-34); MEAN PLATELET VOLUME 9.8 fL (7.4-10.4); MONO % 12.7 %; PLATELET COUNT 161 K/uL (130-400); RED BLOOD COUNT 3.55 M/uL (4.7-6.1); WHITE BLOOD COUNT 4.79 K/uL (4.8-10.8)
[2016-10-11 07:07] VITALS: BP 127/76; PULSE 89; TEMP 36.6; O2SAT 96
[2016-10-11 07:56] VITALS: BP 127/77; PULSE 93; TEMP 36.9; O2SAT 97
[2016-10-11] MEDS: FERROUS SULFATE 325 MG TAB PO SCH (07:57)
[2016-10-11] MEDS: METOPROLOL TARTRATE 25 MG TAB PO SCH (07:58)
[2016-10-11] MEDS: PAROXETINE 20 MG TAB PO SCH (07:58)
[2016-10-11] MEDS: MULTIVITAMIN TAB PO SCH (07:58)
[2016-10-11] MEDS: PANTOprazole SOD 40 MG TAB PO SCH (07:58)
[2016-10-11] MEDS: ALLOPURINOL 300 MG TAB PO SCH (07:58)
[2016-10-11] MEDS: DOXYCYCLINE HYCLATE 100 MG CAP PO SCH (07:58)
[2016-10-11] MEDS: THIAMINE HCL 100 MG TAB PO SCH (07:58)
[2016-10-11] MEDS: INSULIN ASPART 100 UNITS/ML 3 ML PEN SC SCH (07:59)
[2016-10-11] MEDS ORDERED: PROPOFOL IV EMULSION 10 MG/ML 20 ML VIAL IV ONE (09:16)
[2016-10-11] MEDS ORDERED: LIDOCAINE HCL 2% 2 ML VIAL (20MG/ML) ONE (09:16)
--- NOTE | 2016-10-11 09:55 | GI REPORT ---
Procedure Date: 10/11/2016 9:18 AM Procedure: Upper GI endoscopy Indications: Iron deficiency anemia Medicines: Monitored Anesthesia Care Complications: No immediate complications. Estimated blood loss: Minimal. Estimated Blood Loss: Estimated blood loss was minimal. Procedure: Pre-Anesthesia Assessment: - Prior to the procedure, a History and Physical was performed, and patient medications, allergies and sensitivities were reviewed. The patient's tolerance of previous anesthesia was reviewed. - The risks and benefits of the procedure and the sedation options and risks were discussed with the patient. All questions were answered and informed consent was obtained. - Patient identification and proposed procedure were verified prior to the procedure by the physician, the nurse and the tip puncher. The procedure was verified in the procedure room. - Pre-procedure physical examination revealed no contraindications to sedation. - ASA Grade Assessment: III - A patient with severe systemic disease. - After reviewing the risks and benefits, the patient was deemed in satisfactory condition to undergo the procedure. - The anesthesia plan was to use monitored anesthesia care (MAC). - Immediately prior to administration of medications, the patient was re-assessed for adequacy to receive sedatives. - The heart rate, respiratory rate, oxygen saturations, blood pressure, adequacy of pulmonary ventilation, and response to care were monitored throughout the procedure. - The physical status of the patient was re-assessed after the procedure. After obtaining informed consent, the endoscope was passed under direct vision. Throughout the procedure, the patient's blood pressure, pulse, and oxygen saturations were monitored continuously. The On-site loaner was introduced through the mouth, and advanced to the second part of duodenum. The upper GI endoscopy was accomplished without difficulty. The patient tolerated the procedure well. Findings: The upper third of the esophagus and middle third of the esophagus were normal. The esophagus and gastroesophageal junction were examined with white light. There were esophageal mucosal changes suspicious for Russ's esophagus. These changes involved the mucosa at the upper extent of the gastric folds (45 cm from the incisors) extending to the Z-line (43 cm from the incisors). Three tongues of salmon-colored mucosa were present from 43 to 45 cm. The maximum longitudinal extent of these esophageal mucosal changes was 2 cm in length. Biopsies were taken with a cold forceps for histology. Estimated blood loss was minimal. Diffuse mild inflammation characterized by erythema and granularity was found in the entire examined stomach. Biopsies were taken with a cold forceps for histology. Estimated blood loss was minimal. The examined duodenum was normal. Biopsies were taken with a cold forceps for histology. Estimated blood loss was minimal. Impression: - Esophageal mucosal changes suspicious for Russ's esophagus. Biopsied. - Diffuse gastritis. Biopsied. - Normal examined duodenum. Biopsied. Recommendation: - Perform a colonoscopy today. - Await pathology results. - Continue present medications. - Await pathology results. Prasanth Muñoz D.O. Prasanth Muñoz, 10/11/2016 9:54:47 AM This report has been signed electronically. Note Initiated On: 10/11/2016 9:18 AM
--- NOTE | 2016-10-11 09:59 | GI REPORT ---
Procedure Date: 10/11/2016 9:17 AM Procedure: Colonoscopy Indications: Iron deficiency anemia Medicines: Monitored Anesthesia Care Complications: No immediate complications. Estimated blood loss: Minimal. Estimated Blood Loss: Estimated blood loss was minimal. Procedure: Pre-Anesthesia Assessment: - Prior to the procedure, a History and Physical was performed, and patient medications, allergies and sensitivities were reviewed. The patient's tolerance of previous anesthesia was reviewed. - The risks and benefits of the procedure and the sedation options and risks were discussed with the patient. All questions were answered and informed consent was obtained. - Patient identification and proposed procedure were verified prior to the procedure by the physician, the nurse and the drafter electrical. The procedure was verified in the procedure room. - Pre-procedure physical examination revealed no contraindications to sedation. - ASA Grade Assessment: III - A patient with severe systemic disease. - After reviewing the risks and benefits, the patient was deemed in satisfactory condition to undergo the procedure. - The anesthesia plan was to use monitored anesthesia care (MAC). - Immediately prior to administration of medications, the patient was re-assessed for adequacy to receive sedatives. - The heart rate, respiratory rate, oxygen saturations, blood pressure, adequacy of pulmonary ventilation, and response to care were monitored throughout the procedure. - The physical status of the patient was re-assessed after the procedure. After I obtained informed consent, the scope was passed under direct vision. Throughout the procedure, the patient's blood pressure, pulse, and oxygen saturations were monitored continuously. The Scope was introduced through the anus and advanced to the cecum, identified by appendiceal orifice and ileocecal valve. The colonoscopy was performed without difficulty. The patient tolerated the procedure well. The quality of the bowel preparation was adequate to identify polyps 6 mm and larger in size. Findings: The perianal and digital rectal examinations were normal. Pertinent negatives include normal sphincter tone. A 5 mm polyp was found in the transverse colon. The polyp was sessile. The polyp was removed with a cold snare. Resection and retrieval were complete. Estimated blood loss was minimal. A 5 mm polyp was found in the descending colon. The polyp was sessile. The polyp was removed with a hot snare. Resection and retrieval were complete. Estimated blood loss was minimal. A 4 mm polyp was found in the sigmoid colon. The polyp was sessile. The polyp was removed with a cold snare. Resection and retrieval were complete. Estimated blood loss was minimal. Internal hemorrhoids were found during retroflexion. The hemorrhoids were moderate. The exam was otherwise without abnormality. Impression: - One 5 mm polyp in the transverse colon, removed with a cold snare. Resected and retrieved. - One 5 mm polyp in the descending colon, removed with a hot snare. Resected and retrieved. - One 4 mm polyp in the sigmoid colon, removed with a cold snare. Resected and retrieved. - Internal hemorrhoids. - The examination was otherwise normal. Recommendation: - Return patient to hospital [facility] for ongoing care. - Await pathology results. - Repeat colonoscopy in 3 years for surveillance based on pathology results. - No obvious cause of anemia found today, would favor nutritional deficiency. - Consider a CT of the abdomen to evaluate for a small bowel mass. Prasanth Muñoz D.O. Prasanth Muñoz, 10/11/2016 9:58:02 AM This report has been signed electronically. Note Initiated On: 10/11/2016 9:17 AM
[2016-10-11 12:00] VITALS: BP 118/76; PULSE 81; TEMP 36.4; O2SAT 99
[2016-10-11] MEDS ORDERED: OPTIRAY 320 IV PRN (12:30)
[2016-10-11 13:00] VITALS: BP 118/76; PULSE 81; TEMP 36.4; O2SAT 99
--- NOTE | 2016-10-11 13:27 | Progress Note ---
Medicine Progress Note Date & Time of Visit: Oct 11, 2016 at 13:12. Subjective patient states he feels fine overall today s/p EGD and Colonoscopy tolerated diet well, no nausea, abdominal pain, drowsiness denies chest pain, dyspnea has occasional cough, non productive no other symptoms states he is ready and would like to be discharged today Objective Last 8 Hrs Date Time Temp Pulse Resp B/P Pulse Ox O2 Delivery O2 Flow Rate FiO2 10/11/16 13:00 36.4 81 18 99 Room Air 10/11/16 12:40 Room Air 10/11/16 12:00 36.4 81 18 118/76 99 Room Air 10/11/16 10:28 79 20 122/82 98 Room Air 10/11/16 10:13 85 20 119/82 98 Room Air 10/11/16 09:58 89 20 109/77 97 Room Air 10/11/16 09:08 36.6 93 20 118/84 97 Room Air 10/11/16 08:30 Room Air 10/11/16 07:56 36.9 93 18 127/77 97 BiPAP 10/11/16 07:07 36.6 89 20 127/76 96 Room Air Physical Exam: General- oriented x 3, not in distress, speaks in sentences with no effort Eyes-anicteric Neck- no JVD Lungs- clear breath sounds bilaterally, no rales/wheezes/crackles, good air entry Heart- normal rate, irregularly irregular rhythm; no murmur Abdomen- normal bowel sounds, soft, nontender Extremities- right lower leg: wound with dressing in place, clean/dry (+) psoriatic plaques on the elbow, knees,legs, back no pretibial edema, no calf tenderness; peripheral pulses intact Neuro- alert, oriented x 3; no gross focal deficits, no tremors Skin- warm & dry Laboratory Results: Last 24 Hours Test 10/10/16 16:11 10/10/16 20:27 10/11/16 05:52 10/11/16 07:45 Bedside Glucose 101 mg/dl 118 mg/dl 105 mg/dl White Blood Count 4.79 K/uL Red Blood Count 3.55 M/uL Hemoglobin 9.1 g/dL Hematocrit 28.4 % Mean Corpuscular Volume 80.0 fL Mean Corpuscular Hemoglobin 25.6 pg Mean Corpuscular Hemoglobin Concent 32.0 g/dl Platelet Count 161 K/uL Mean Platelet Volume 9.8 fL Neutrophils (%) (Auto) 59.0 % Lymphocytes (%) (Auto) 22.5 % Monocytes (%) (Auto) 12.7 % Eosinophils (%) (Auto) 5.0 % Basophils (%) (Auto) 0.6 % Neutrophils # (Auto) 2.82 K/uL Lymphocytes # (Auto) 1.08 K/uL Monocytes # (Auto) 0.61 K/uL Eosinophils # (Auto) 0.24 K/uL Basophils # (Auto) 0.03 K/uL RDW Standard Deviation 56.3 fL RDW Coefficient of Variation 19.1 % Immature Granulocyte % (Auto) 0.2 % Immature Granulocyte # (Auto) 0.01 K/uL Test 10/11/16 11:34 Bedside Glucose 114 mg/dl Assessment & Plan 61 year old male with history of Alcohol Abuse, A fib not on anticoagulation, CHF Diastolic Type, DM, HTN, other problems noted below presenting with right lower leg bleeding. ANEMIA LIKELY SECONDARY TO LOWER LEG VARICOSE VEIN BLEEDING possible GI BLEED - Hg 6.7 on admission (+) hemoccult s/p 5 units pRBC Hg stable and improved to ~9 Iron level 20, Iron supplement started - evaluated by GI Dr. Muñoz/HOLLY Owens s/p EGD 10/11/16 - Esophageal mucosal changes suspicious for Russ's esophagus. Biopsied. - Diffuse gastritis. Biopsied. - Normal examined duodenum. Biopsied. s/p Colonoscopy 10/11/16 - One 5 mm polyp in the transverse colon, removed with a cold snare. Resected and retrieved. - One 5 mm polyp in the descending colon, removed with a hot snare. Resected and retrieved. - One 4 mm polyp in the sigmoid colon, removed with a cold snare. Resected and retrieved. - Internal hemorrhoids. - The examination was otherwise normal. Recommendation: - Repeat colonoscopy in 3 years for surveillance based on pathology results. - GI: no obvious cause of anemia found today, would favor nutritional deficiency. Consider a CT of the abdomen to evaluate for a small bowel mass. - discharge plan: Protonix 40 mg daily Ferrous sulfate BID monitor CBC CT abdomen to r/o Small Bowel Mass LOWER LEG VARICOSE VEIN BLEEDING - patient feels wound resulted from a scratch small wound sutured at the ER please follow up - wound healing well wound care consulted ATRIAL FIBRILLATION IN RVR likely from medication non compliance and acute blood loss anemia usually on Metoprolol 50mg BID, patient non adherent per cardiology, not a good candidate for anticoag due to possible GI bleed, medication non compliance, alcoholism echo: n Conclusions -- n There is mild concentric left ventricular hypertrophy. n The left ventricular wall motion is normal. n Ejection Fraction = 55-60%. n The right ventricle is not well visualized. n The right ventricle is mildly dilated. n The right ventricular systolic function is grossly normal on limited visualization. n The left atrium is moderately dilated. n There is mild mitral regurgitation. n Doppler findings do not suggest pulmonary hypertension. - TSH elevated, T4 normal repeat as outpatient - evaluated by Dr. Farrell restarted Metoprolol 25mg BID HR improved, tolerating Metoprolol - discharge plan: continue Metoprolol 25mg bid Aspirin held due to recent bleeding not an anticoagulation candidate - ff up with Office Administration Instructor closely DYSPNEA ON EXERTION reports this is chronic, actually improving echo: no CHF CT chest: no PE possible pulmonary hypertension from LAUREN? check pulse ox after ambulation: >90% = will start Doxycycline for possible sinusitis, bronchitis PRN inhalers ff up as outpatient ALCOHOLISM - Alcohol level 68 last drink night prior to admission - no signs of withdrawal placed on Gabapentin tapering protocol as inpatient - no signs of withdrawal CHF, DIASTOLIC TYPE - no signs of volume overload DM 2 continue metformin A1c 5 HYPERTENSION continue Metoprolol monitor HISTORY OF LAUREN - CPAP ordered patient was tolerating as inpatient PSORIASIS follows with Dr. Galdamez off Humira due to insurance issues close outpatient ff up GOUT on Allopurinol DEPRESSION Psych consulted Paroxetine increased to 40mg po daily check EKG prior to adjusting Paroxetine ff up as outpatient DVT PROPHYLAXIS SCDs heparin contraindicated due to recent leg bleeding, r/o gi bleed Disposition d/c home today (patient declines home health services at this time) ff up with PCP on 10/15/16 Office Administration Instructor and GI as advised Current Inpatient Medications: Current Inpatient Medications Medications (Trade) Dose Ordered Sig/Karen Route Start Time Stop Time Status Last Admin Dose Admin Acetaminophen (Tylenol Tab) 650 mg Q4H PRN PO 10/06/16 06:30 11/05/16 06:29 Nitroglycerin (Nitrostat Tab) 0.4 mg UD PRN SL 10/06/16 06:30 11/05/16 06:29 Insulin Aspart (novoLOG ASPART) SLIDING SCALE If C... ACHS SC 10/06/16 06:45 11/05/16 06:44 10/06/16 11:07 1 UNITS Glucose (Glucose 40% Gel) 15-30 GRAMS 15 GRAMS... UD PRN PO 10/06/16 06:30 11/05/16 06:29 Glucose (Glucose Chew Tab) 4-8 Tablets 4 Tabl... UD PRN PO 10/06/16 06:30 11/05/16 06:29 Dextrose (Dextrose 50% 50ML Syringe) 25-50ML OF 50% DW IV FOR... UD PRN IV 10/06/16 06:30 11/05/16 06:29 Glucagon (Glucagon Inj) 1 mg UD PRN SQ 10/06/16 06:30 11/05/16 06:29 Allopurinol (Zyloprim Tab) 300 mg DAILYBB PO 10/07/16 06:00 11/06/16 05:59 10/09/16 08:36 300 MG Oxycodone HCl (Roxicodone Immediate Rel Tab) 5 mg Q6H PRN PO 10/06/16 06:30 10/20/16 06:29 Lorazepam (Ativan Inj) 1 mg ONE PRN IV 10/06/16 06:30 Thiamine HCl (Vitamin B-1 Tab) 100 mg QAM PO 10/07/16 09:00 11/06/16 08:59 10/10/16 08:24 100 MG Multivitamins (Multivitamin Tab) 1 tab QAM PO 10/07/16 09:00 11/06/16 08:59 10/09/16 08:37 1 TAB Folic Acid (Folvite Tab) 1 mg QAM PO 10/07/16 09:00 11/06/16 08:59 10/10/16 08:24 1 MG Pantoprazole Sodium (Protonix Tab) 40 mg QAM PO 10/06/16 09:00 11/05/16 08:59 10/10/16 08:25 40 MG Paroxetine HCl (pAXil TAB) 40 mg QAM PO 10/07/16 09:00 11/06/16 08:59 10/10/16 08:24 40 MG Ferrous Sulfate (Feosol Tab) 325 mg BIDM PO 10/07/16 17:00 11/06/16 16:59 10/10/16 16:42 325 MG Metoprolol Tartrate (Lopressor Tab) 25 mg BID PO 10/08/16 21:00 11/07/16 20:59 10/10/16 21:24 25 MG Ipratropium [place] (Atrovent Hfa Inhaler) 2 puffs Q6RWA INH 10/10/16 21:00 11/09/16 20:59 10/10/16 21:20 2 PUFFS Levalbuterol (Xopenex Hfa Inhaler) 2 puffs Q6RWA INH 10/10/16 21:00 11/09/16 20:59 10/10/16 21:21 2 PUFFS Doxycycline Hyclate (Vibramycin Cap) 100 mg BID PO 10/10/16 21:00 10/20/16 20:59 Ioversol (Optiray 320) 125 ml UD PRN IV 10/11/16 12:30 10/15/16 12:29
[2016-10-11] MEDS ORDERED: LPR25 PO (13:32)
[2016-10-11] MEDS ORDERED: FRRS300 PO (13:32)
[2016-10-11] MEDS ORDERED: THM100 PO (13:32)
[2016-10-11] MEDS ORDERED: DXY100 PO (13:32)
[2016-10-11] MEDS ORDERED: PXL20 PO (13:32)
[2016-10-11] MEDS ORDERED: MULT-589 PO (13:32)
[2016-10-11] MEDS ORDERED: PRT40 PO (13:32)
--- NOTE | 2016-10-11 13:39 | Discharge Instructions ---
Discharge Instructions Admission Reason for Admission: A-Fib And A-Flutter With Rvr Discharge Discharge Diagnosis / Problem: ANEMIA, IRREGULAR HEART BEAT Discharge Goals Goal(s): Diagnostic testing, Therapeutic intervention Activity Recommendations Activity Limitations: as noted below (NO HEAVY EXERTION UNTIL SEEN BY PRIMARY CARE PHYSICIAN) . Instructions / Follow-Up Instructions / Follow-Up PLEASE REVIEW YOUR NEW MEDICATION LIST AND FOLLOW INSTRUCTIONS CAREFULLY. TAKE MEDICATIONS REGULARLY. CALL PRIMARY CARE PHYSICIAN OR RETURN TO ER IMMEDIATELY IF WITH BLOOD IN THE STOOLS, ABDOMINAL PAIN, NAUSEA/VOMITING, WEAKNESS, DIZZINESS. FOLLOW UP WITH DR. FELDER ON Tuesday10/15/16 AT 1050AM. FOLLOW UP WITH GRAIN MILLER HELPER AND RECOVERY COORDINATOR ADVISED. Current Hospital Diet Patient's current hospital diet: Diabetes Type 2 Diet, AHA Diet (Heart Healthy) , Low Fiber Diet Discharge Diet Recommended Diet: AHA Diet (Heart Healthy), Diabetes Type 2 Diet Procedures Procedures Performed: EGD, COLONOSCOPY , BLOOD TRANSFUSION Pending Studies Studies pending at discharge: yes List of pending studies: REPEAT BLOOD WORK- CBC, CT ABDOMEN AND PELVIS Laboratory Results Hemoglobin A1c Test 10/06/16 01:37 Range/Units Estimated Average Glucose 111 mg/dl Hemoglobin A1c 5.5 4.5-5.6 % Medical Emergencies . Who to Call and When: Medical Emergencies: If at any time you feel your situation is an emergency, please call 911 immediately. . Non-Emergent Contact Non-Emergency issues call your: Primary Care Provider Call Non-Emergent contact if: you have a fever, your pain is not controlled, wound has increased drainage, wound has increased redness, wound has increased pain, you have any medication questions . . "Provider Documentation" section prepared by Olivier Cunningham. VTE Core Measure Inpt VTE Proph given/why not?: SCD's
--- NOTE | 2016-10-11 14:54 | Anesthesiology Progress Note ---
Anesthesia Post Op Note Date & Time Oct 11, 2016 at 14:54 Vital Signs Pain Intensity: 0.0 Vital Signs Past 12 Hours Date Time Temp Pulse Resp B/P Pulse Ox O2 Delivery O2 Flow Rate FiO2 10/11/16 13:00 36.4 81 18 99 Room Air 10/11/16 12:40 Room Air 10/11/16 12:00 36.4 81 18 118/76 99 Room Air 10/11/16 10:28 79 20 122/82 98 Room Air 10/11/16 10:13 85 20 119/82 98 Room Air 10/11/16 09:58 89 20 109/77 97 Room Air 10/11/16 09:08 36.6 93 20 118/84 97 Room Air 10/11/16 08:30 Room Air 10/11/16 07:56 36.9 93 18 127/77 97 BiPAP 10/11/16 07:07 36.6 89 20 127/76 96 Room Air 10/11/16 04:00 36.6 89 20 127/76 96 10/11/16 04:00 Room Air Notes Mental Status: alert / awake / arousable, participated in evaluation Pt Amnestic to Procedure: Yes Nausea / Vomiting: adequately controlled Pain: adequately controlled Airway Patency, RR, SpO2: stable & adequate BP & HR: stable & adequate Hydration State: stable & adequate Anesthetic Complications: no major complications apparent
--- NOTE | 2016-10-12 16:03 | Discharge Summary ---
Discharge Summary Admission Date: Oct 06, 2016 at 05:51 Discharge Date: Oct 11, 2016 Discharge Disposition: Home Principal Diagnosis: ANEMIA LIKELY SECONDARY TO LOWER LEG VARICOSE VEIN BLEEDING possible GI BLEED Secondary Diagnoses/Problems: PLEASE REFER TO HOSPITAL COURSE BELOW. Procedures: EGD, COLONOSCOPY (results in the hospital course); [address] CHEST: 1. No pulmonary emboli identified. 2. No acute intrathoracic findings. 3. Interval decrease in size of the previously described right axillary lymph node. The remainder of the mildly enlarged thoracic lymph nodes are unchanged. 4. Moderate cardiomegaly and extensive coronary artery calcification. 5. Dilatation of the central pulmonary arteries which raises the possibility of pulmonary arterial hypertension. 6. Apparent mild infiltration within the jero hepatis as well as adjacent to the gallbladder. This is similar to prior exam and is therefore of doubtful significance unless this patient has right upper quadrant pain. Consultations: GI DR. MUÑOZ/HOLLY FONSECA; PILE DRIVING TECHNICIAN DR. BRIGHT; PSYCHIATRIST DR. SCHUYLER LI Pending Studies/Follow-Up: REPEAT CBC; FOLLOW UP BIOPSIES FROM EGD AND COLONOSCOPY; CT ABDOMEN AND PELVIS TO R/O MASS (POSSIBLE SOURCE OF GI BLEED); PLEASE REFER TO HOSPITAL COURSE BELOW FOR FURTHER DETAILS. Medication Reconciliation New Medications: Doxycycline Hyclate (Doxycycline Hyclate) 100 Mg Cap 100 MG PO BID for 6 Days, #12 CAP 0 Refills Ferrous Sulfate (Ferrous Sulfate) 325 Mg Tab 325 MG PO BIDM for 30 Days, #60 TAB 2 Refills Metoprolol Tartrate (Lopressor) 25 Mg Tab 25 MG PO BID for 30 Days, #60 TAB 2 Refills Multivitamins (Daily Yoko) 1 Tab Tab 1 TAB PO QAM for 30 Days, #30 TAB 2 Refills Pantoprazole (Pantoprazole Sodium) 40 Mg Tab 40 MG PO QAM for 30 Days, #30 TAB 2 Refills 30 minutes before breakfast Paroxetine (Paroxetine HCl) 20 Mg Tab 40 MG PO QAM for 10 Days, #20 TAB 0 Refills Thiamine HCl (Vitamin B-1) 100 Mg Tab 100 MG PO QAM for 10 Days, #10 TAB 0 Refills Continued Medications: Allopurinol (Allopurinol) 300 Mg Tab 300 MG PO DAILYBB Metformin HCl (Metformin HCl) 500 Mg Tab 500 MG PO BID Discontinued Medications: Paroxetine (Paroxetine HCl) 30 Mg Tab 30 MG PO QAM Admission Information HPI (per Admitting provider): DATE OF ADMISSION: 10/06/2016 PRIMARY CARE PHYSICIAN: Dr. Elmore. Hx obtained from px and records. CHIEF COMPLAINT: Bleeding from the right leg. HISTORY OF PRESENT ILLNESS: Medical history is significant for alcohol abuse, depression; chronic diastolic heart failure as per records, HTN, AFib off anticoagulation, varicose veins as per records, hyperlipidemia, chronic anemia (baseline hemoglobin 10), DM2 on oral meds, past tobacco abuse, LAUREN on CPAP, gout, Lyme disease per records. History of psoriasis. Recent confinement last April 2016 for gouty flareup and chest pain. In the last 2 weeks, the patient noted some shortness of breath especially on exertion. No new cough symptoms. No chest pain. denies new leg swelling or weight gain. Admits to some palpitations. Admits to noncompliance with home beta reji for about the last 2 months secondary to insurance issues. Patient also noted bleeding from varicose vein on the right ankle which he may have scratched. He woke up w/ "a lot of bleeding" from the right ankle this AM. Brought to the Emergency Room. Noted to be in rapid AFib. Physical Exam (per Admitting): VITAL SIGNS: Blood pressure was noted to be 129/61, later 132, later 111; pulse rate 120, RR 36.4, sats 94 on room air. GENERAL: Noted to be obese, slightly anxious, unkempt. No respiratory distress. SKIN : pallor HEENT: Pale palpebral conjunctivae. Dry mucosa. NECK: Short neck. LUNGS: Decreased effort. HEART: Tachycardic, irregular. ABDOMEN: Some distention. EXTREMITIES: Dried blood on both feet. venous stasis, dressing on the right ankle. RECTAL: Intact sphincter, yellow stool, heme positive. Hospital Course 61 year old male with history of Alcohol Abuse, A fib not on anticoagulation, CHF Diastolic Type, DM, HTN, other problems noted below presenting with right lower leg bleeding. LOWER LEG VARICOSE VEIN BLEEDING - presented with profuse bleeding after varicose vein got scratched small wound sutured at the ER please follow up wound suture - wound healing well wound care consulted ANEMIA LIKELY SECONDARY TO LOWER LEG VARICOSE VEIN BLEEDING possible GI BLEED - Hg 6.7 on admission, (+) hemoccult s/p 5 units pRBC --> Hg stable and improved to ~9 Iron level 20, Iron supplement started - evaluated by GI Dr. Muñoz/HOLLY Fonseca s/p EGD 10/11/16 - Esophageal mucosal changes suspicious for Russ's esophagus. Biopsied. - Diffuse gastritis. Biopsied. - Normal examined duodenum. Biopsied. s/p Colonoscopy 10/11/16 - One 5 mm polyp in the transverse colon, removed with a cold snare. Resected and retrieved. - One 5 mm polyp in the descending colon, removed with a hot snare. Resected and retrieved. - One 4 mm polyp in the sigmoid colon, removed with a cold snare. Resected and retrieved. - Internal hemorrhoids. - The examination was otherwise normal. Recommendation: - Repeat colonoscopy in 3 years for surveillance based on pathology results. - GI: no obvious cause of anemia found, would favor nutritional deficiency. Consider a CT of the abdomen to evaluate for a small bowel mass. - discharge plan: Protonix 40 mg daily Ferrous sulfate BID monitor CBC outpatient CT abdomen to r/o Small Bowel Mass ATRIAL FIBRILLATION IN RVR likely from medication non compliance and acute blood loss anemia usually on Metoprolol 50mg BID, patient non adherent per cardiology, not a good candidate for anticoag due to possible GI bleed, medication non compliance, alcoholism echo: n Conclusions -- n There is mild concentric left ventricular hypertrophy. n The left ventricular wall motion is normal. n Ejection Fraction = 55-60%. n The right ventricle is not well visualized. n The right ventricle is mildly dilated. n The right ventricular systolic function is grossly normal on limited visualization. n The left atrium is moderately dilated. n There is mild mitral regurgitation. n Doppler findings do not suggest pulmonary hypertension. - TSH elevated, T4 normal repeat TFT as outpatient - evaluated by Dr. Farrell restarted Metoprolol 25mg BID HR improved, tolerating Metoprolol - discharge plan: continue Metoprolol 25mg bid Aspirin held due to recent bleeding not an anticoagulation candidate - ff up with Brand Lead closely DYSPNEA ON EXERTION reports this is chronic, actually improving echo: no CHF CT chest: no PE possible pulmonary hypertension from LAUREN? check pulse ox after ambulation: >90% = started Doxycycline PO, continue to complete 5 days treatment ff up as outpatient ALCOHOLISM - Alcohol level 68 last drink night prior to admission - no signs of withdrawal placed on Gabapentin tapering protocol as inpatient - no signs of withdrawal CHF, DIASTOLIC TYPE - no signs of volume overload DM 2 continue metformin A1c 5 HYPERTENSION continue Metoprolol monitor HISTORY OF LAUREN - CPAP ordered patient was tolerating as inpatient PSORIASIS follows with Dr. Galdamez off Humira due to insurance issues close outpatient ff up GOUT on Allopurinol DEPRESSION Psych consulted Paroxetine increased to 40mg po daily check EKG prior to adjusting Paroxetine ff up as outpatient DVT PROPHYLAXIS SCDs heparin contraindicated due to recent leg bleeding, r/o gi bleed Disposition d/c home (patient declines home health services at this time) ff up with PCP on 10/15/16 ff up with Brand Lead and GI as advised Total time spent on discharge = 50 minutes This includes examination of the patient, discharge planning, medication reconciliation, and communication with other providers. Discharge Instructions Discharge Instructions Admission Reason for Admission: A-Fib And A-Flutter With Rvr Discharge Discharge Diagnosis / Problem: ANEMIA, IRREGULAR HEART BEAT Discharge Goals Goal(s): Diagnostic testing, Therapeutic intervention Activity Recommendations Activity Limitations: as noted below (NO HEAVY EXERTION UNTIL SEEN BY PRIMARY CARE PHYSICIAN) . Instructions / Follow-Up Instructions / Follow-Up PLEASE REVIEW YOUR NEW MEDICATION LIST AND FOLLOW INSTRUCTIONS CAREFULLY. TAKE MEDICATIONS REGULARLY. CALL PRIMARY CARE PHYSICIAN OR RETURN TO ER IMMEDIATELY IF WITH BLOOD IN THE STOOLS, ABDOMINAL PAIN, NAUSEA/VOMITING, WEAKNESS, DIZZINESS. FOLLOW UP WITH DR. ELMORE ON Tuesday10/15/16 AT 1050AM. FOLLOW UP WITH CODE ENFORCEMENT SUPERVISOR AND FORMING ROLL OPERATOR HEAVY DUTY ADVISED. Current Hospital Diet Patient's current hospital diet: Diabetes Type 2 Diet, AHA Diet (Heart Healthy) , Low Fiber Diet Discharge Diet Recommended Diet: AHA Diet (Heart Healthy), Diabetes Type 2 Diet Procedures Procedures Performed: EGD, COLONOSCOPY , BLOOD TRANSFUSION Pending Studies Studies pending at discharge: yes List of pending studies: REPEAT BLOOD WORK- CBC, CT ABDOMEN AND PELVIS Laboratory Results Hemoglobin A1c Test 10/06/16 01:37 Range/Units Estimated Average Glucose 111 mg/dl Hemoglobin A1c 5.5 4.5-5.6 % Medical Emergencies . Who to Call and When: Medical Emergencies: If at any time you feel your situation is an emergency, please call 911 immediately. . Non-Emergent Contact Non-Emergency issues call your: Primary Care Provider Call Non-Emergent contact if: you have a fever, your pain is not controlled, wound has increased drainage, wound has increased redness, wound has increased pain, you have any medication questions . . "Provider Documentation" section prepared by Olivier Cunningham. VTE Core Measure Inpt VTE Proph given/why not?: SCD's
== END 2016-10-11 14:14 | disposition home or self-care (01) | DRG 300 ==
LOC: CANRESERV → ENRESERVTM → ENRESERVDT → EDBD 02:14 → C.EDB 02:15 → C.MSICU 05:51 → C.MED 16:29
PROVIDERS: ADMIT Internal Medicine; ATTEND Internal Medicine
PROC: 0HQKXZZ Repair Right Lower Leg Skin, External Approach (ICD-10-PCS; 2016-10-06)
PROC: 0HDRXZZ Extraction of Toe Nail, External Approach (ICD-10-PCS; 2016-10-07)
PROC: 0HDMXZZ Extraction of Right Foot Skin, External Approach (ICD-10-PCS; 2016-10-07)
PROC: 0HDNXZZ Extraction of Left Foot Skin, External Approach (ICD-10-PCS; 2016-10-07)
PROC: 0DBM8ZX Excision of Descending Colon, Via Natural or Artificial Opening Endoscopic, Diagnostic (ICD-10-PCS; principal; 2016-10-11 09:30)
PROC: 0DBN8ZX Excision of Sigmoid Colon, Via Natural or Artificial Opening Endoscopic, Diagnostic (ICD-10-PCS; principal; 2016-10-11 09:30)
PROC: 0DBL8ZX Excision of Transverse Colon, Via Natural or Artificial Opening Endoscopic, Diagnostic (ICD-10-PCS; principal; 2016-10-11 09:30)
PROC: 0DB98ZX Excision of Duodenum, Via Natural or Artificial Opening Endoscopic, Diagnostic (ICD-10-PCS; 2016-10-11 09:30)
PROC: 0DB68ZX Excision of Stomach, Via Natural or Artificial Opening Endoscopic, Diagnostic (ICD-10-PCS; 2016-10-11 09:30)
PROC: 0DB58ZX Excision of Esophagus, Via Natural or Artificial Opening Endoscopic, Diagnostic (ICD-10-PCS; 2016-10-11 09:30)
DX: I83.891 Varicose veins of right lower extremity with other complications (principal); D62 Acute posthemorrhagic anemia; I50.32 Chronic diastolic (congestive) heart failure; I31.3 Pericardial effusion (noninflammatory); K92.2 Gastrointestinal hemorrhage, unspecified; E46 Unspecified protein-calorie malnutrition; I48.92 Unspecified atrial flutter; Z87.891 Personal history of nicotine dependence; G47.33 Obstructive sleep apnea (adult) (pediatric); I11.0 Hypertensive heart disease with heart failure; Z83.3 Family history of diabetes mellitus; I48.91 Unspecified atrial fibrillation; E78.5 Hyperlipidemia, unspecified; Z91.14 Patient's other noncompliance with medication regimen; I27.2 Other secondary pulmonary hypertension; F32.9 Major depressive disorder, single episode, unspecified; M10.9 Gout, unspecified; K22.70 Barrett's esophagus without dysplasia; K29.70 Gastritis, unspecified, without bleeding; K64.8 Other hemorrhoids; D12.5 Benign neoplasm of sigmoid colon; D12.4 Benign neoplasm of descending colon; F10.20 Alcohol dependence, uncomplicated; N40.0 Benign prostatic hyperplasia without lower urinary tract symptoms; E11.40 Type 2 diabetes mellitus with diabetic neuropathy, unspecified; B35.1 Tinea unguium; L84 Corns and callosities; Z82.49 Family history of ischemic heart disease and other diseases of the circulatory system

== ENCOUNTER 2020-04-14 22:50 | Inpatient (IN) ==
--- OUTSIDE RECORDS SUMMARY | 2020-04-14 22:55 | External Medical Summary | Continuity of Care Document ---
:1955 Author Name Gustavo Bartlett Address Unavailable Unavailable , Care Team Providers Name Role Phone Radha Bartlett TMartha Unavailable [email or web address] PCP, NO Unavailable Unavailable Problems Active medical history not documented Allergies and Adverse Reactions Allergy history not documented Medications Medications not documented Procedures Procedures not documented Immunizations Immunizations not documented Plan of Treatment Planned Observations Planned Goals not documented Results No Known Results Results not documented
[2020-04-14] MEDS ORDERED: SODIUM CHLORIDE 0.9% 1000ML 500 ML IV ONE (23:39)
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
[2020-04-15 00:39] LABS: Basophils # (auto) 0.04 K/uL (0-0.2); Basophils % (auto) 0.7 %; Eosinophils # (auto) 0.18 K/uL (0-0.5); Eosinophils % (auto) 3.2 %; Hematocrit (blood only) 40.2 % (42-52); Hemoglobin 13.9 g/dL (14.0-18.0); Immature Granulocytes # (auto) 0.01 K/uL (0.00-0.02); Immature Granulocytes % (auto) 0.2 %; Lymphocytes # (auto) 1.92 K/uL (1.2-3.4); Lymphocytes % (auto) 34.2 %; Mean Corpuscular Hemoglobin 31.3 pg (25-34); Mean Corpuscular Hgb Conc 34.6 g/dL (32-36); Mean Corpuscular Volume 90.5 fL (80-100); Mean Platelet Volume 9.7 fL (7.4-10.4); Monocytes # (auto) 0.45 K/uL (0.11-0.59); Neutrophils # (auto) 3.01 K/uL (1.4-6.5); Neutrophils % (auto) 53.7 %; Platelet Count 180 K/uL (130-400); RDW Standard Deviation 47.1 fL (36.4-46.3); Red Blood Count 4.44 M/uL (4.7-6.1); White Blood Count 5.61 K/uL (4.8-10.8)
[2020-04-15] MEDS ORDERED: METOPROLOL TARTRATE 1 MG/ML VIAL IV STA (00:44)
[2020-04-15 00:56] LABS: Albumin Level 3.6 gm/dl (3.4-5.0); BUN Creatinine Ratio 11.9 (10-20); Bilirubin Direct 0.4 mg/dl (0-0.2); Calcium 8.7 mg/dl (8.5-10.1); Est GFR (African American) 112.1; Est GFR (Non-African American) 96.7
[2020-04-15 01:06] LABS: Bilirubin,Total 1.1 mg/dl (0.2-1); Troponin I 0.04 ng/ml (0-0.045)
[2020-04-15] MEDS ORDERED: METOPROLOL TARTRATE 1 MG/ML VIAL IV PRN (03:35)
[2020-04-15] MEDS ORDERED: ATIVAN IV ALCOHOL WITHDRAWL IV PRN (03:35)
[2020-04-15] MEDS ORDERED: ONDANSETRON INJ 2 MG/ML 2 ML VIAL IV PRN (03:35)
[2020-04-15] MEDS ORDERED: LORazepam 3 MG/6 ML VIAL IV PRN (03:35)
[2020-04-15] MEDS ORDERED: LORazepam 2 MG/4 ML VIAL IV PRN (03:35)
[2020-04-15] MEDS ORDERED: LORazepam 1 MG/2 ML VIAL IV PRN (03:35)
[2020-04-15] MEDS ORDERED: NITROGLYCERIN SL 0.4 MG/TAB TAB SL PRN (03:35)
[2020-04-15] MEDS ORDERED: POLYETHYLENE (MIRALAX) 17 GM PACK PO PRN (03:35)
[2020-04-15] MEDS ORDERED: GABAPENTIN 1200MG ALCOHOL WITHDRAWAL LOAD PO STA (03:35)
[2020-04-15] MEDS ORDERED: GABAPENTIN 600 MG TAB PO ONE (04:00)
[2020-04-15] MEDS ORDERED: MULTI-VITAMIN INFUSION 10 ML, THIAMINE HCL 100 MG, FOLIC ACID 1 MG in SODIUM CHLORIDE 0... IV ONE (04:00)
--- NOTE | 2020-04-15 04:05 | History and Physical Report ---
DATE OF ADMISSION: 04/15/2020 CHIEF COMPLAINT: Status post fall and found to be in AFib. HISTORY OF PRESENT ILLNESS: A 64-year-old male with past medical history significant for type 2 diabetes, hypertension, hyperlipidemia, varicose veins of the leg, history of psoriatic arthropathy, gout arthropathy, currently not taking any medication, noncompliant with diabetic medication and blood pressure, he stopped taking medications 2 years ago, history of psoriatic arthropathy and used to be on Humira in the past but developed pneumonia and got admitted to hospital and he stopped taking Humira several years ago. He has hx of chronic alcoholism. He drinks alcohol 6-10 beers every day. Lives alone. The patient states since last couple of months, he fell several times at home, but still he was able to get up. Today, he was getting food from his oven and suddenly felt weak and fell down and could not get up and he called ambulance and was brought in here. Currently, he is hemodynamically stable. CT of the head is pending. Labs look okay. His EKG showed AFib at the rate of 106. Initially, when he came in his heart rate was in 120s. He received a dose of IV Lopressor. Currently, his heart rate is in 80s. Denies any palpitations. He says once in a while he gets some chest discomfort. Has shortness of breath on exertion. No cough, no headache, no dizziness, no blurred visions, no earache, no runny nose, no sore throat, no loss of sense of smell or taste. No dysphagia. Appetite is good. No nausea, no abdominal pain. Normal bowel and bladder movements. Denies any blood in the stools or black stools. No hematuria. Has chronic skin changes in the lower extremities. The patient has psoriatic lesions all over the body, but he says he is comfortable and does not want any cream or any other treatment at this time. ALLERGIES: ALLOPURINOL. PAST MEDICAL HISTORY: As mentioned above. PAST SURGICAL HISTORY: Colonoscopy with biopsy, EGD, tympanoplasty, radical mastoid cholesteatoma, tonsillectomy, ultrasound transrectal biopsy. MEDICATIONS: Currently taking Paxil 40 mg p.o. daily. FAMILY HISTORY: Significant for father had OK in his 40s; paternal grandfather had cancer; paternal grandmother had OK in her 40s; maternal grandmother lived to old age. SOCIAL HISTORY: , lives alone. Quit smoking in 1988, smoked 1 pack a day for 15 years. Alcohol, drinks 6-10 beers every day. No drug use. REVIEW OF SYSTEMS: As per HPI. Rest of review of systems negative. PHYSICAL EXAMINATION: GENERAL: The patient is obese, not in acute distress. VITAL SIGNS: Temperature 37, pulse when he came in was 120s, currently 95, respiratory rate 16, blood pressure 141/95, and oxygen 96% on room air. HEENT: No pallor, no icterus. Pupils equal, round, reactive to light. Oral mucosa moist. NECK: No JVD, no neck masses. CARDIOVASCULAR: S1, S2 heard, irregular rhythm, no murmur, no gallop. RESPIRATORY SYSTEM: Normal AP diameter. No accessory muscle use. No wheezing, no crackles. ABDOMEN: Soft, bowel sounds present. Nontender. No distention. CENTRAL NERVOUS SYSTEM: Cranial nerves II-XII grossly intact, nonfocal. EXTREMITIES: Chronic lower extremity skin changes seen. There is some mild edema. SKIN: Psoriasis, has lesions seen all over the body. LABORATORY DATA: WBC 5.6, hemoglobin 13.9, hematocrit 40.2, platelets 180. Sodium 139, potassium 4, chloride 107, bicarbonate 24, BUN 9, creatinine 0.7, serum glucose 99, calcium 8.7, magnesium 2, total bilirubin 1.1, direct bilirubin 0.4, AST 43, ALT 35, alkaline phosphatase 122, total Ck 96. Troponin I of 0.04. BNP 571. IMAGING DATA: Chest x-ray, no acute findings. EKG: Atrial fibrillation with rapid ventricular response at a rate of 106. Nonspecific ST abnormalities seen. CT of the head, Preliminary report shows no acute intracranial findings. ASSESSMENT AND PLAN: This is a 64-year-old male who presents with fall. 1. Fall. The patient fell and could not get up, felt weak. Has chronic alcoholism. Currently hemodynamically stable. Labs look fine. CT head seems okay. We will do PT, OT and monitor in the hospital. 2. Rapid atrial fibrillation. When he came in heart rate was in 120s, Received IV Lopressor. Currently, rate is under control. We will follow serial enzymes, echocardiogram. Monitor in med tele. The patient has ongoing alcoholism and noncompliant with medications. So currently we will defer anticoagulation to cardiology in a.m. and place him on IV Lopressor p.r.n. 3. Alcoholism, drinks 6-10 beers every day. We will give banana bag, IV thiamine, IV folic acid. Place him on gabapentin, alcohol withdrawal protocol with IV Ativan p.r.n. Monitor for withdrawal. 4. History of diabetes, the patient is not taking any medications since last 2 years. We will check hemoglobin A1c levels. Currently, patient is n.p.o. 5. Hypertension. Used to be on lisinopril and Lopressor in the past. Currently not taking any medications. We will monitor his blood pressure. 6. Psoriasis and psoriatic arthropathy. The patient used to be on Humira in the past but developed pneumonia and stopped taking it. Has diffuse psoriatic lesions, but patient is not interested in any treatment at this time. We can discuss with him again tomorrow. 7. Depression. Continue Paxil. 8. Deep venous thrombosis prophylaxis, sequential compression devices for now. DISPOSITION: Closely monitor in the med tele. Level 1 full code. Expect to discharge home and follow with the family doctor. GRAZYNA
[2020-04-15 05:56] LABS: Amphetamines+Metham, Urine Neg (Neg); Barbiturates, Urine Neg (Neg); Benzodiazepine, Urine Neg (Neg); Cocaine, Urine Neg (Neg); MDMA (Ecstacy), Urine Neg (Neg); Methadone, Urine Neg (Neg); Opiate, Urine Neg (Neg); Phencyclidine, Urine Neg (Neg)
--- NOTE | 2020-04-15 06:34 | XRay Report ---
XR chest 1V portable CLINICAL HISTORY: Generalized weakness dyspnea COMPARISON STUDY: 10/06/2016 FINDINGS: Moderate cardiomegaly. Slight bibasilar interstitial prominence considered chronic. Mild ch ronic fullness of the pulmonary vasculature and superior mediastinum. IMPRESSION: 1. Cardiomegaly. 2. Mild chronic pulmonary vascular congestion. ACT 112: Negative or not required by law. The above report was generated using voice recognition software. It may contain grammatical, syntax or spelling errors. Electronically signed by: Alec Paul M.D. 04/15/2020 6:32 AM
--- NOTE | 2020-04-15 06:46 | CT Scan Report ---
CT OF THE HEAD WITHOUT CONTRAST CLINICAL HISTORY: fall, weakness COMPARISON STUDY: No previous studies for comparison. CT DOSE: 614.27 mGy.cm TECHNIQUE: Helical axial images of the head were obtained without IV contrast. Automated exposure con trol was utilized for the study. A dose lowering technique was utilized adhering to the principles o f ALARA. FINDINGS: No acute intracranial hemorrhage, midline shift or mass effect is present. The ventricular system is unremarkable. The basilar cisterns are patent. No extra-axial collections are present. Ther e are no findings to suggest acute dural sinus thrombosis or acute territorial infarct. No significan t calvarial abnormalities are present. Visualized portions of the sinuses and mastoid air cells are c lear. Postoperative findings within the right mastoids are noted. IMPRESSION: 1. No acute intracranial findings. 2. No calvarial fracture. ACT 112: Negative or not required by law. Electronically signed by: Oscar Schneider M.D. 04/15/2020 6:44 AM
[2020-04-15 08:23] LABS: Basophils # (auto) 0.06 K/uL (0-0.2); Basophils % (auto) 1.1 %; Eosinophils % (auto) 3.5 %; Hematocrit (blood only) 38.8 % (42-52); Hemoglobin 13.2 g/dL (14.0-18.0); Immature Granulocytes # (auto) 0.01 K/uL (0.00-0.02); Immature Granulocytes % (auto) 0.2 %; Lymphocytes # (auto) 1.63 K/uL (1.2-3.4); Lymphocytes % (auto) 28.7 %; Mean Corpuscular Hemoglobin 31.3 pg (25-34); Mean Corpuscular Volume 91.9 fL (80-100); Mean Platelet Volume 9.8 fL (7.4-10.4); Monocytes # (auto) 0.56 K/uL (0.11-0.59); Monocytes % (auto) 9.9 %; Neutrophils # (auto) 3.21 K/uL (1.4-6.5); Neutrophils % (auto) 56.6 %; Platelet Count 151 K/uL (130-400); RDW Coefficient of Variation 14.3 % (11.5-14.5); RDW Standard Deviation 47.5 fL (36.4-46.3); Red Blood Count 4.22 M/uL (4.7-6.1); White Blood Count 5.67 K/uL (4.8-10.8)
[2020-04-15 08:48] LABS: Est GFR (African American) 111.5; Est GFR (Non-African American) 96.2; Potassium 4.2 mmol/L (3.5-5.1)
[2020-04-15 08:49] LABS: Albumin Level 3.1 gm/dl (3.4-5.0); BUN Creatinine Ratio 12.1 (10-20); Bilirubin Direct 0.4 mg/dl (0-0.2); Calcium 8.2 mg/dl (8.5-10.1); Creatinine Clr Calc Pharmacy 137.2 ml/min; Magnesium 1.9 mg/dl (1.8-2.4)
[2020-04-15 08:53] LABS: Bilirubin,Total 0.9 mg/dl (0.2-1); Troponin I 0.038 ng/ml (0-0.045)
[2020-04-15] MEDS ORDERED: PARoxetine HCL 20 MG TAB PO SCH (09:00)
[2020-04-15] MEDS ORDERED: FOLIC ACID 1 MG in SYRINGE 9.8 ML IV SCH (09:00)
[2020-04-15] MEDS ORDERED: THIAMINE HCL 100 MG in SYRINGE 9 ML IV SCH (09:00)
[2020-04-15 09:12] LABS: Folate (Folic Acid) > 24.00 ng/ml (>5.38); Vitamin B12 416 pg/ml (211-911)
[2020-04-15 09:48] LABS: Estimated Average Glucose 108 mg/dl; Hemoglobin A1C 5.4 % (4.5-5.6)
[2020-04-15] MEDS: GABAPENTIN 600 MG TAB PO SCH ×2 (10:21→15:57)
--- NOTE | 2020-04-15 11:01 | Cardiology Consultation ---
Date of Consultation April 15, 2020 Assessment & Plan (1) Atrial flutter with rapid ventricular response: TTecho performed this am and reviewed personally. The study was technically adequate for the referral indication. Rate controlled atrial fibrillation noted during the study. The left ventricular wall motion is normal. The LV Ejection Fraction = 55-60%. The left atrium is moderately dilated. The right atrium is moderately dilated. The right ventricle is mildly dilated, with mild diffuse right ventricular hypokinesis that spares the RV apex. There is mild mitral regurgitation. There is mild tricuspid regurgitation. Moderate pulmonary hypertension is present. The pulmonary artery systolic pressure is estimated to be 59 mmHg. Compared to the prior study dated 10/06/2016, mild right ventricular dilatation noted at that time, which has progressed. Moderate pulmonary hypertension is now present. -AF, AFL are chronic findings.Resume past treatment with metoprolol 12.5 mg BID. Continue to monitor on telemetry , as recurrent falls could suggests arrhythmia related syncope, however, alcohol intoxication also a possibility, alcohol level was 71 mg/dL at time of presentation to the ED. As noted he is not a candidate for anticoagulation given fall / bleeding risk. Pulmonary hypertension noted. Will proceed with LE venous duplex to exclude DVT given findings on examination and newly recognized pulmonary HTN. Suspect sleep apnea may be culprit. Alchohol dependence is obviously the most threatening health concern. Rehab was discussed in 2017. History of Present Illness Attending Physician: Aleksandr Gr MD History of Present Illness Augustine Valentine is a 64 year old male seen in cardiology consultation per the request of Dr Palm for the evaluation of atrial fibrillation. Patient admitted overnight with a fall episode that occurred in his apartment. He states that he has had several falls in the last few months. He does not recall tripping, and states that he found himself on the ground. He does not believe that he lost consciousness for any significant amount of time. EKG performed on arrival at 12:30 AM on 04/15/2020 revealed atrial fibrillation with mildly elevated ventricular response at 106 bpm, mild diffuse nonspecific repolarization changes noted. He denies any cardiac symptoms. Denies any change in his activity tolerance in terms of chest pains or shortness of breath, denies palpitations. He notes occasional bleeding from superficial varicose veins on his lower legs. The patient had actually been seen by the undersigned as an inpatient in 2017 for atrial fibrillation/atrial flutter. Per my progress notes at that time, it was felt that this was a chronic finding for him. During that presentation he initially sought emergency room treatment for bleeding from his leg, and he was found to have a profound anemia, hemoglobin of 6.7. He received 5 units of packed red blood cells during that admission, and underwent EGD, colonoscopy, with findings of several polyps which were biopsied, and gastritis. Treatment with metoprolol was advised, and it was felt that he was a poor anticoagulation candidate due to anemia, bleeding concerns. His history is otherwise notable for nonobstructive coronary heart disease on remote cardiac catheterization in 2010, diabetes, with nonadherence to medications, psoriasis with psoriatic arthropathy, varicose veins of the lower legs. He has a history of chronic alcoholism. He reportedly has been drinking 6-10 beers per day, when I had seen him in 2017, up to 12 beers per day recorded at that time. Allergies Allergy/AdvReac Type Severity Reaction Status Date / Time No Known Allergies Allergy Unverified 04/15/20 00:10 Home Medications Home Medications Medication Instructions Recorded Confirmed Type paroxetine HCl [Paxil] 40 mg PO DAILY 04/15/20 04/15/20 History Patient History Social History Smoking Status: Former smoker Second Hand Exposure: No; Hx Alcohol Use: Yes Alcohol type: beer Hx Substance Use: No Preferred Language: Icelandic Communication Ability: Effective Carton Maker Required: No Beliefs That Will Affect Care: None Current Living Situation: Alone Other Information That Helps Us Care for You: No Feels Safe at Home: Yes Safety Concerns: Feels Safe At This Time Review of Systems Review of Systems: All systems reviewed & are unremarkable except as noted in HPI & below Physical Exam Physical Exam: Temp Pulse Resp BP Pulse Ox 36.5 C 80 20 135/93 98 04/15/20 08:00 04/15/20 08:00 04/15/20 08:00 04/15/20 08:00 04/15/20 08:00 Constitutional: WD/WN, vitals as above Respiratory: normal respiratory effort, lungs clear to auscultation Cardiovascular: Rate/Rhythm: + irregularly irregular Heart Sounds: no mur mur Vessels: no JVD Lower extremities, chronic venous stasis changes noted, varicose veins noted. Trace edema. Skin: Psoriatic plaques noted on the lower legs, arms, and back Neurologic: PERRL, EOMI, accommodation nl, no face palsy, no dysarthria Results & Data ([facility]) Vital Signs (Past 12 Hours) Vital Signs Temp Pulse Pulse Resp BP BP Pulse Ox 04/15/20 08:00 36.5 C 80 20 135/93 98 04/15/20 04:48 80 04/15/20 03:35 36.6 C 82 16 133/88 96 04/15/20 03:00 80 21 129/86 96 04/15/20 02:40 80 19 04/15/20 02:30 80 16 130/85 95 04/15/20 02:00 80 19 126/88 96 04/15/20 01:31 81 18 133/78 96 04/15/20 01:08 95 H 16 141/95 H 96 04/15/20 01:06 93 H 97 H 16 141/95 H 141/95 H 96 04/15/20 00:32 97 H 18 143/94 H 97 04/14/20 23:30 37.0 C 122 H 18 153/104 H 95 Pulse Ox 04/15/20 08:00 04/15/20 04:48 04/15/20 03:35 96 04/15/20 03:00 04/15/20 02:40 04/15/20 02:30 04/15/20 02:00 04/15/20 01:31 04/15/20 01:08 04/15/20 01:06 04/15/20 00:32 04/14/20 23:30 Laboratory Results Cardiac Enzymes 04/15/20 04/15/20 Range/Units 00:19 08:06 AST 43 H 44 H (15-37) U/L Troponin I 0.040 0.038 (0-0.045) ng/ml CBC 04/15/20 04/15/20 Range/Units 00:19 08:06 WBC 5.61 5.67 (4.8-10.8) K/uL RBC 4.44 L 4.22 L (4.7-6.1) M/uL Hgb 13.9 L 13.2 L (14.0-18.0) g/dL Hct 40.2 L 38.8 L (42-52) % Plt Count 180 151 (130-400) K/uL Neut # (Auto) 3.01 3.21 (1.4-6.5) K/uL Lymph # (Auto) 1.92 1.63 (1.2-3.4) K/uL [place] # (Auto) 0.45 0.56 (0.11-0.59) K/uL Eos # (Auto) 0.18 0.20 (0-0.5) K/uL Baso # (Auto) 0.04 0.06 (0-0.2) K/uL Comprehensive Metabolic Panel 04/15/20 04/15/20 Range/Units 00:19 08:06 Sodium 139 140 (136-145) mmol/L Potassium 4.0 4.2 (3.5-5.1) mmol/L Chloride 107 109 H (98-107) mmol/L Carbon Dioxide 24 25 (21-32) mmol/L BUN 9 10 (7-18) mg/dl Creatinine 0.78 0.79 (0.6-1.4) mg/dl Glucose 99 92 (70-99) mg/dl Calcium 8.7 8.2 L (8.5-10.1) mg/dl Direct Bilirubin 0.4 H 0.4 H (0-0.2) mg/dl AST 43 H 44 H (15-37) U/L ALT 35 34 (12-78) U/L Alkaline Phosphatase 122 H 108 (45-117) U/L Total Protein 8.0 7.0 (6.4-8.2) gm/dl Albumin 3.6 3.1 L (3.4-5.0) gm/dl Intake and Output 04/14/20 04/15/20 04/15/20 22:59 06:59 14:59 Intake Total 500 / 500 1011.2 / 1011.2 Output Total 350 / 350 Balance 150 / 150 1011.2 / 1011.2 Intake: IV 500 / 500 1011.2 / 1011.2 Mvi Infusion 10 ml Vitamin B-1 1011.2 / 1011.2 100 mg Folvite 1 mg In Nss 1000ML 1,000 ml @ 500 mls/hr IV .Q2H2M ONE Rx#:[id number] Nss 1000ML 500 ml @ 999 mls/hr 500 / 500 IV .Q31M ONE Rx#:[id number] Output: Urine 350 / 350 Other: Other Intake Source NPO Weight 130.3 kg Diagnostic Findings EKG as outlined above. Medications Administered Current Inpatient Medications Gabapentin (Neurontin) 600 mg PO Q24H [facility] Stop: 04/18/20 16:01 Gabapentin (Neurontin) 600 mg PO Q6H [facility] Stop: 04/15/20 16:01 Last Admin: 04/15/20 10:21 Dose: 600 mg Documented by: Gabapentin (Neurontin) 600 mg PO Q8H [facility] Stop: 04/16/20 16:01 Gabapentin (Neurontin) 600 mg PO Q12H [facility] Stop: 04/17/20 16:01 Folic Acid 1 mg/ Syringe 10 mls @ 5 mls/min IV QAM [facility] Stop: 05/15/20 08:59 Last Admin: 04/15/20 08:16 Dose: 5 mls/min Documented by: Lorazepam (Ativan) 1 mg in 2 mls @ 2 mls/min IV UD PRN; Protocol PRN Reason: EtOH Withdrawl AWSS Score 6,7 Stop: 05/15/20 03:34 Lorazepam (Ativan) 2 mg in 4 mls @ 4 mls/min IV UD PRN; Protocol PRN Reason: EtOH Withdrawl AWSS Score 8,9 Stop: 05/15/20 03:34 Lorazepam (Ativan) 3 mg in 6 mls @ 4 mls/min IV ONCE PRN; Protocol PRN Reason: EtOH Withdrawl AWSS Score >=10 Stop: 05/15/20 03:34 Thiamine HCl 100 mg/ Syringe 10 mls @ 2 mls/min IV QAM [facility] Stop: 05/15/20 08:59 Last Admin: 04/15/20 08:18 Dose: 2 mls/min Documented by: Metoprolol Tartrate (Lopressor) 2.5 mg IV Q4 PRN PRN Reason: Tachycardia Stop: 05/15/20 03:34 Metoprolol Tartrate (Lopressor) 12.5 mg PO BID [facility] Stop: 05/15/20 11:14 Nitroglycerin (Nitrostat) 0.4 mg SL UD PRN PRN Reason: Chest Pain Stop: 05/15/20 03:34 Ondansetron HCl (Zofran) 4 mg IV Q6H PRN PRN Reason: Nausea Stop: 05/15/20 03:34 Paroxetine HCl (Paxil) 40 mg PO DAILY [facility] Stop: 05/15/20 08:59 Last Admin: 04/15/20 08:18 Dose: 40 mg Documented by: Polyethylene Glycol (Miralax Powder Packet) 17 gm PO DAILY PRN PRN Reason: Constipation Stop: 05/15/20 03:34
[2020-04-15] MEDS ORDERED: METOPROLOL TARTRATE 25 MG TAB PO SCH (11:15)
--- NOTE | 2020-04-15 15:07 | Ultrasound Report ---
BILATERAL LOWER EXTREMITY VENOUS DOPPLER HISTORY: Acute pain and swelling of the right lower extremity DVT, pulmonay HTN noted on echo COMPARISON STUDY: Duplex venous Doppler study 04/26/2016 FINDINGS: There is normal compressibility, flow, and augmentation within the bilateral lower extremit y deep venous systems. The calf veins are suboptimally visualized bilaterally. Mildly complex bilater al popliteal cysts, 7.7 cm on the right and 7.1 cm on the left. IMPRESSION: No DVT within the right or left lower extremity. ACT 112: Negative or not required by law. Electronically signed by: Kian Augustine M.D. 04/15/2020 3:06 PM
--- NOTE | 2020-04-15 15:43 | Hospitalist Progress Note ---
Date of Service April 15, 2020 Assessment & Plan (1) Fall: -This is a 64-year-old male who presents with fall, and because he could not get up, he called 911 and EMS arrived to help him stand up -he was assessed by physical therapy. he declines further physical therapy and he feels that his mobility is sufficient that he can leave with his family members Alcohol use -drinks 6-10 beers every day. he received on this hospital stay: give banana bag, IV thiamine, IV folic acid. -patient advised to avoid alcohol and to make appointment to follow up with a primary care doctor Atrial Fibrillation/Atria Flutter (chronic)echocardiogram -echocardiogram "The study was technically adequate for the referral indication. Rate controlled atrial fibrillation noted during the study. The left ventricular wall motion is normal. The LV Ejection Fraction = 55-60%. The left atrium is moderately dilated. The right atrium is moderately dilated. The right ventricle is mildly dilated, with mild diffuse right ventricular hypokinesis that spares the RV apex. There is mild mitral regurgitation. There is mild tricuspid regurgitation. Moderate pulmonary hypertension is present. The pulmonary artery systolic pressure is estimated to be 59 mmHg. Compared to the prior study dated 10/06/2016, mild right ventricular dilatation noted at that time, which has progressed. Moderate pulmonary hypertension is now present. -Atrial fibrillation, Atrial flutter are chronic findings.Resume past treatment with metoprolol 12.5 mg BID." as per cardiology Dr. Farrell -patient declines further telemetry monitoring, patient is discharged with metoprolol 12.5 mg BID sent [address] [facility] at [address] [place] [address] Psoriasis and psoriatic arthropathy -The patient used to be on Humira in the past but developed pneumonia and stopped taking it. Has diffuse psoriatic lesions, but patient is not interested in any treatment at this time. We can discuss with him again tomorrow. Depression -only home medication prior to this hospital presentation is Paxil, continue. Admission and Anticipated Discharge Date Admission Date: April 15, 2020 Subjective he was assessed by physical therapy. he declines further physical therapy and he feels that his mobility is sufficient that he can leave with his family members he declines further telemetry monitoring no current dizziness or lightheadedness. no chest pain. no palpitations. no nausea. no headache. no abdomen pain. no vomiting Review of Systems Review of Systems: All systems reviewed & are unremarkable except as noted in Subjective Physical Exam Constitutional: comfortable Eyes: PERRL, conjunctivae normal, anicteric sclerae EOM intact bilaterally ENMT: external ear and nose normal, oropharynx normal Neck: trachea midline, no thyromegaly normal visual inspection Respiratory: normal respiratory effort, lungs clear to auscultation Cardiovascular: Rate/Rhythm: regular rate (aflutter on telemetry in the 80s) Gastrointestinal (Abdomen): Inspection/Auscultation: normal bowel sounds Percussion/Palpation: abdomen soft Musculoskeletal: Head/Neck/Chest: normocephalic and head atraumatic Skin: no rashes, warm and dry (chronic lower extremitiy skin changes bilaterally) Neurologic: PERRL, EOMI, accommodation nl, no face palsy, no dysarthria moves all extremities Psychiatric: A+Ox3, euthymic affect Results & Data Results & Data ([facility]) Vital Signs (Past 12 Hours) Vital Signs Temp Pulse Pulse Resp BP Pulse Ox 04/15/20 15:26 36.7 C 82 16 145/95 H 97 04/15/20 11:43 36.8 C 81 20 156/105 H 96 04/15/20 08:00 36.5 C 80 20 135/93 98 04/15/20 07:00 79 04/15/20 04:48 80
--- NOTE | 2020-04-15 15:58 | Discharge Summary ---
Date of Service April 15, 2020 Admission HPI Per Admitting Provider CHIEF COMPLAINT: Status post fall and found to be in AFib. HISTORY OF PRESENT ILLNESS: A 64-year-old male with past medical history significant for type 2 diabetes, hypertension, hyperlipidemia, varicose veins of the leg, history of psoriatic arthropathy, gout arthropathy, currently not taking any medication, noncompliant with diabetic medication and blood pressure, he stopped taking medications 2 years ago, history of psoriatic arthropathy and used to be on Humira in the past but developed pneumonia and got admitted to hospital and he stopped taking Humira several years ago. He has hx of chronic alcoholism. He drinks alcohol 6-10 beers every day. Lives alone. The patient states since last couple of months, he fell several times at home, but still he was able to get up. Today, he was getting food from his oven and suddenly felt weak and fell down and could not get up and he called ambulance and was brought in here. Currently, he is hemodynamically stable. CT of the head is pending. Labs look okay. His EKG showed AFib at the rate of 106. Initially, when he came in his heart rate was in 120s. He received a dose of IV Lopressor. Currently, his heart rate is in 80s. Denies any palpitations. He says once in a while he gets some chest discomfort. Has shortness of breath on exertion. No cough, no headache, no dizziness, no blurred visions, no earache, no runny nose, no sore throat, no loss of sense of smell or taste. No dysphagia. Appetite is good. No nausea, no abdominal pain. Normal bowel and bladder movements. Denies any blood in the stools or black stools. No hematuria. Has chronic skin changes in the lower extremities. The patient has psoriatic lesions all over the body, but he says he is comfortable and does not want any cream or any other treatment at this time. Principal Diagnosis Fall, Atrial Fibrillation/Atria Flutter (chronic), alcohol use Discharge Exam Constitutional comfortable Eyes PERRL, conjunctivae normal, anicteric sclerae EOM intact bilaterally ENMT external ear and nose normal, oropharynx normal Neck trachea midline, no thyromegaly normal visual inspection Respiratory normal respiratory effort, lungs clear to auscultation Cardiovascular Rate/Rhythm: regular rate (aflutter on telemetry in the 80s) Gastrointestinal (Abdomen) Inspection/Auscultation: normal bowel sounds Percussion/Palpation: abdomen soft Musculoskeletal Head/Neck/Chest: normocephalic and head atraumatic Skin no rashes, warm and dry (chronic lower extremitiy skin changes bilaterally) Neurologic PERRL, EOMI, accommodation nl, no face palsy, no dysarthria moves all extremities Psychiatric A+Ox3, euthymic affect Discharge Data Allergies Allergy/AdvReac Type Severity Reaction Status Date / Time No Known Allergies Allergy Unverified 04/15/20 00:10 Consultations 04/15/20 01:20 ED Decision to Admit Stat 04/15/20 03:35 Consult Case Management - Discharge Planning Routine 04/15/20 08:00 Consult Cardiology Routine Ordered Studies 04/15/20 00:44 CT head/brain wo con Urgent 04/15/20 14:30 US venous doppler [facility] Urgent Hospital Course (1) Fall: -This is a 64-year-old male who presents with fall, and because he could not get up, he called 911 and EMS arrived to help him stand up -he was assessed by physical therapy. he declines further physical therapy and he feels that his mobility is sufficient that he can leave with his family members Alcohol use -drinks 6-10 beers every day. he received on this hospital stay: give banana bag, IV thiamine, IV folic acid. -patient advised to avoid alcohol and to make appointment to follow up with a primary care doctor Atrial Fibrillation/Atria Flutter (chronic)echocardiogram -echocardiogram "The study was technically adequate for the referral indication. Rate controlled atrial fibrillation noted during the study. The left ventricular wall motion is normal. The LV Ejection Fraction = 55-60%. The left atrium is moderately dilated. The right atrium is moderately dilated. The right ventricle is mildly dilated, with mild diffuse right ventricular hypokinesis that spares the RV apex. There is mild mitral regurgitation. There is mild tricuspid regurgitation. Moderate pulmonary hypertension is present. The pulmonary artery systolic pressure is estimated to be 59 mmHg. Compared to the prior study dated 10/06/2016, mild right ventricular dilatation noted at that time, which has progressed. Moderate pulmonary hypertension is now present. -Atrial fibrillation, Atrial flutter are chronic findings.Resume past treatment with metoprolol 12.5 mg BID." as per cardiology Dr. Farrell -patient declines further telemetry monitoring, patient is discharged with metoprolol 12.5 mg BID sent to [facility] at [address] [place] [address] Dr State Andie BARRERA Psoriasis and psoriatic arthropathy -The patient used to be on Humira in the past but developed pneumonia and stopped taking it. Has diffuse psoriatic lesions, but patient is not interested in any treatment at this time. We can discuss with him again tomorrow. Depression -only home medication prior to this hospital presentation is Paxil, continue. Total Time Total Time Spent Total Time Spent (In Minutes): 40 minutes Total Time Includes: Examination of the Patient, Discharge Planning, Medication Reconciliation and Communication With Other Providers Discharge Plan Discharge Items Patient Disposition: Home - Self-Care Reason For Visit: FALL Discharge Diagnosis: Fall, Atrial Fibrillation/Atria Flutter (chronic), alcohol use Condition on Discharge: Good Activity: Per Instructions section Non-emergency contact: Primary Care Provider Call non-emergency contact if: you have any medication questions Follow-up/Referrals: Alec Elmore MD [Primary Care Provider] - Diet: Heart Healthy Kenny Attending Provider Instructions: patient advised to avoid alcohol and to make appointment to follow up with a primary care doctor patient is discharged with metoprolol 12.5 mg BID sent to [facility] at [address] [place] [address] Dr State Andie Cox Technical Training Instructor Provider Instructions: echocardiogram "The study was technically adequate for the referral indication. Rate controlled atrial fibrillation noted during the study. The left ventricular wall motion is normal. The LV Ejection Fraction = 55-60%. The left atrium is moderately dilated. The right atrium is moderately dilated. The right ventricle is mildly dilated, with mild diffuse right ventricular hypokinesis that spares the RV apex. There is mild mitral regurgitation. There is mild tricuspid regurgitation. Moderate pulmonary hypertension is present. The pulmonary artery systolic pressure is estimated to be 59 mmHg. Compared to the prior study dated 10/06/2016, mild right ventricular dilatation noted at that time, which has progressed. Moderate pulmonary hypertension is now present. -Atrial fibrillation, Atrial flutter are chronic findings.Resume past treatment with metoprolol 12.5 mg BID." as per cardiology Dr. Farrell -patient declines further telemetry monitoring Pending Studies at Discharge: No Studies:: CXR: 04/14/2020: Moderate cardiomegaly. Slight bibasilar interstitial prominence considered chronic. Mild chronic fullness of the pulmonary vasculature and superior mediastinum CT Head 04/15/2020: No acute intracranial hemorrhage, midline shift or mass ef fect is present. The ventricular system is unremarkable. The basilar cisterns are patent. No extra-axial collections are present. There are no findings to suggest acute dural sinus thrombosis or acute territorial infarct. No significant calvarial abnormalities are present. Visualized portions of the sinuses and mastoid air cells are clear. Postoperative findings within the right mastoids are note 04/15/2020: ultrasound lower extremity: No DVT within the right or left lower extremity. Stand-Alone [facility] Sm[facility] Cess[facility] Medications and DC Order Prescriptions: New metoprolol tartrate 25 mg Tablet 12.5 mg PO BID 30 Days Qty: 30 RF: 0 Continued paroxetine HCl [Paxil] 40 mg Tablet 40 mg PO DAILY RF: 0 Discharge Orders: Discharge Order (Routine); Ordered 04/15/20 Ordered By: Aleksandr Vega/Other Patient Handouts: High Blood Sugar (Hyperglycemia), Managing Type 2 Diabetes, Diabetes: Meal Planning Admission Data Admit Date/Time: 04/15/20 02:36 Attending Provider: Aleksandr Gr Admit Provider: Jack Palm Primary Care Provider: Alec Elmore Other Providers: Jack Palm ; Daniel Zarate ; John Farrell ; Olu Back ; Alex Wagner ; Shaq Donnelly ; Alec Dill ; Claudia Motta ; Lizz Arenas ; Parviz Miller
[2020-04-16] MEDS ORDERED: GABAPENTIN 600 MG TAB PO SCH
[2020-04-17] MEDS ORDERED: GABAPENTIN 600 MG TAB PO SCH (04:00)
--- NOTE | 2020-04-17 08:19 | Electrocardiogram Report ---
Test Reason : Blood Pressure : / mmHG Vent. Rate : 106 BPM Atrial Rate : 120 BPM P-R Int : 000 ms QRS Dur : 092 ms QT Int : 380 ms P-R-T Axes : 000 063 246 degrees QTc Int : 504 ms Atrial flutter with rapid ventricular response T wave abnormality, consider inferior ischemia Abnormal ECG When compared with ECG of 07-OCT-2016 06:47, HR has increased Confirmed by Stephen Kwok ([id number]) on 04/17/2020 8:18:43 AM Referred By: REFERRED SELF Confirmed By:Stephen Kwok
[2020-04-18] MEDS ORDERED: GABAPENTIN 600 MG TAB PO SCH (16:00)
== END 2020-04-15 16:19 | disposition home or self-care (01) | DRG 310 ==
LOC: ED 22:50 → 2N 04-15 02:36

== ENCOUNTER 2020-10-08 04:15 | Observation (INO) ==
[2020-10-08] MEDS ORDERED: GELATIN SPONGE 12-7MM ONE (04:25)
--- NOTE | 2020-10-08 04:56 | Emergency Department Note ---
History of Present Illness General Chief complaint: Bleeding Stated complaint: BLEEDING Time Seen by Provider: 10/08/20 04:15 History of Present Illness This is a 65-year-old male that presents to the emergency department via ambulance with complaints of "bleeding right leg". The patient notes a history of bleeding varicosities and states that earlier today just prior to arrival he reached down to his right lateral calf region and scratched an itchy area and notes that this must have unroofed a scab of a small bleeding varicosity which cause bleeding. Patient notes that it bled a large amount. He states that he was concerned and EMS was summoned. He was brought here for evaluation. He denies any pain. He denies any trauma or injury to the area. On arrival the patient did appear to be quite short of breath and when prompted if this was new he did state that he has been short of breath for well over a year now. He denies any chest pain. He states that this was felt to be secondary to A. fib/a flutter and notes that secondary to financial strain has not been taking his previously prescribed a medication for this. He notes that the only medication he is currently taking his Paxil. He denies any infectious symptoms. Home Medications Medication Instructions Recorded Confirmed Type paroxetine HCl [Paxil] 40 mg PO DAILY 04/15/20 10/08/20 History Allergies Allergy/AdvReac Type Severity Reaction Status Date / Time No Known Allergies Allergy Unverified 10/08/20 05:04 Past Med/Surg History Medical History Alcohol abuse Anemia Atrial flutter with rapid ventricular response BPH (benign prostatic hypertrophy) Depression Depression Diabetes mellitus type 2 in obese Gout History of cholesteatoma s/p radical mastoid 1991 [facility] [place] HTN (hypertension) Hyperlipidemia Obesity (BMI 30-39.9) LAUREN on CPAP Paroxysmal atrial flutter Unspecified asthma Surgical History History of tympanoplasty S/P colonoscopy last 2016 hyperplastic polyp S/P tonsillectomy Status post surgical manipulation of ankle joint "L ankle fusion " Family History Father , 40s Myocardial infarction Social History Smoking Status: Former smoker Number of Years Since Quit: 30; Second Hand Exposure: No; Do You Dip or Chew Tobacco: No; Tobacco Cessation Education Requested by Patient: No Hx Alcohol Use: Yes Alcohol type: beer Alcohol Intake Frequency Comment: daily - 6 betsey beers, last drink 10/07 Hx Substance Use: No Preferred Language: Bruneian Communication Ability: Effective Animal Hospital Clerk Required: No Beliefs That Will Affect Care: None Current Living Situation: Alone Other Information That Helps Us Care for You: No Feels Safe at Home: Yes Safety Concerns: Feels Safe At This Time Assistive Devices: None Review of Systems A total of 10 systems reviewed and were otherwise negative Physical Exam Vital Signs Vital Signs - 24 hr 10/08/20 04:28 10/08/20 04:34 10/08/20 05:09 Temperature 36.7 C Temperature Source Oral Pulse Rate 124 H Pulse Rate [Bilateral Apical] 124 H Respiratory Rate 26 H 26 H Blood Pressure 157/92 H Blood Pressure [Left Arm] 154/93 H Blood Pressure Mean 113 Blood Pressure Mean [Left Arm] 113 Pulse Oximetry 96 96 97 Oxygen Delivery Method Room Air Room Air Room Air Sepsis Recent Fever Within 48 Hours No Sepsis New/Unexplained Change in Mental Status N/A Sepsis Action Taken by Nursing No Action Required 10/08/20 05:36 10/08/20 06:42 10/08/20 07:24 Temperature Temperature Source Pulse Rate 123 H Pulse Rate [Bilateral Apical] 97 H 123 H Respiratory Rate 20 20 Blood Pressure 129/84 Blood Pressure [Left Arm] 147/97 H 138/91 Blood Pressure Mean Blood Pressure Mean [Left Arm] 113 106 Pulse Oximetry 97 99 Oxygen Delivery Method Room Air Room Air Sepsis Recent Fever Within 48 Hours Sepsis New/Unexplained Change in Mental Status Sepsis Action Taken by Nursing VITAL SIGNS - Vital signs and nursing notes were reviewed. Stable and afebrile. Tachycardic. GENERAL -65-year-old male appearing his stated age who is in no acute distress. Communicates well with provider and answers questions appropriately. SKIN - Without rashes. Chronic venous stasis appearance of the lower extremities. 2 small punctate regions of likely recent bleeding varicosities noted to the left lateral calf without active hemorrhage. HEAD - NC/AT. EYES - Sclera anicteric. LUNGS - Chest wall symmetric without accessory muscle use, intercostals retractions, or central cyanosis. Normal vesicular breath sounds CTA B/L. No wheezes, rales, or rhonchi appreciated. CARDIAC -tachycardic and irregular rhythm with S1/S2. No murmur, rubs, or gallops appreciated. EXTREMITIES - No clubbing or peripheral cyanosis. Skin as above. +5/5 strength noted in UE/LE bilaterally. NEUROLOGIC - Cranial nerves II through XII grossly intact. Sensory intact to light touch throughout. PSYCH - A&O, and cooperates fully with examiner. Pt is very pleasant and interacts well with examiner. Course Administered Medications Ferrous Sulfate (Ferrous Sulfate 325 Mg Tab) [facility] Stop: 11/07/20 13:59 Last Admin: 10/08/20 17:18 Dose: 325 mg Documented by: [id number] Folic Acid (Folic Acid 1 Mg Tab) 1 mg PO QAM [facility] Stop: 11/07/20 13:59 Last Admin: 10/08/20 17:18 Dose: 1 mg Documented by: [id number] Metoprolol Tartrate (Metoprolol Tartrate 25 Mg Tab) 12.5 mg PO BID [place] Stop: 11/07/20 20:59 Last Admin: 10/08/20 20:03 Dose: 12.5 mg Documented by: [id number] Pantoprazole Sodium (Pantoprazole 40 Mg Tab) 40 mg PO BID [place] Stop: 11/07/20 13:59 Last Admin: 10/08/20 20:03 Dose: 40 mg Documented by: [id number] Admin: 10/08/20 17:25 Dose: 40 mg Documented by: [id number] Paroxetine HCl (Paroxetine Hcl 20 Mg Tab) 40 mg PO DAILY [facility] Stop: 11/07/20 13:59 Last Admin: 10/08/20 17:18 Dose: 40 mg Documented by: [id number] Thiamine HCl (Thiamine Hcl 100 Mg Tab) 100 mg PO QAM [facility] Stop: 11/07/20 13:59 Last Admin: 10/08/20 17:18 Dose: 100 mg Documented by: [id number] Discontinued Medications Gelatin (Gelatin Sponge 12-7mm) Confirm Administered Dose 1 ea .ROUTE .STK-MED ONE Stop: 10/08/20 04:26 Last Admin: 10/08/20 04:35 Dose: 1 ea Documented by: [id number] Sodium Chloride (Nss 1000ml) 1,000 mls @ 999 mls/hr IV .Q1H1M [place] Stop: 10/08/20 08:45 Last Infusion: 10/08/20 08:51 Dose: 0 mls/hr Documented by: [id number] Admin: 10/08/20 07:48 Dose: 999 mls/hr Documented by: [id number] Thiamine HCl 100 mg/ Syringe 10 mls @ 2 mls/min IV NOW STA Stop: 10/08/20 08:15 Last Admin: 10/08/20 08:53 Dose: 2 mls/min Documented by: [id number] Folic Acid 1 mg/ Syringe 10 mls @ 5 mls/min IV NOW STA Stop: 10/08/20 08:12 Last Admin: 10/08/20 08:53 Dose: 5 mls/min Documented by: [id number] Ioversol (Optiray 320 125ml) 120 ml IV ONCE ONE Stop: 10/08/20 06:30 Last Admin: 10/08/20 06:29 Dose: 120 ml Documented by: [id number] Metoprolol Tartrate (Metoprolol Tartrate 1 Mg/Ml Vial) 5 mg IV NOW STA Stop: 10/08/20 07:12 Last Admin: 10/08/20 07:24 Dose: 5 mg Documented by: [id number] Pantoprazole Sodium (Pantoprazole 40 Mg Tab) 40 mg PO NOW ONE Stop: 10/08/20 15:46 Last Admin: 10/08/20 17:18 Dose: 40 mg Documented by: [id number] Medical Decision Making Laboratory Data Result diagrams: 10/08/20 18:00 10/08/20 04:54 Lab Results 10/08/20 10/08/20 Range/Units 04:54 04:54 WBC 4.81 (4.8-10.8) K/uL RBC 3.69 L (4.7-6.1) M/uL Hgb 9.0 L (14.0-18.0) g/dL Hct 28.9 L (42-52) % MCV 78.3 L (80-100) fL MCH 24.4 L (25-34) pg MCHC 31.1 L (32-36) g/dL RDW Std Deviation 49.4 H (36.4-46.3) fL RDW Coeff of Noam 17.2 H (11.5-14.5) % Plt Count 166 (130-400) K/uL MPV 9.2 (7.4-10.4) fL Immature Gran % (Auto) 0.0 % Neut % (Auto) 55.1 % Lymph % (Auto) 23.1 % [place] % (Auto) 17.3 % Eos % (Auto) 3.7 % Baso % (Auto) 0.8 % Neut # (Auto) 2.65 (1.4-6.5) K/uL Lymph # (Auto) 1.11 L (1.2-3.4) K/uL Summit # (Auto) 0.83 H (0.11-0.59) K/uL Eos # (Auto) 0.18 (0-0.5) K/uL Baso # (Auto) 0.04 (0-0.2) K/uL Immature Gran # (Auto) 0.00 (0.00-0.02) K/uL Sodium 136 (136-145) mmol/L Potassium 4.0 (3.5-5.1) mmol/L Chloride 105 (98-107) mmol/L Carbon Dioxide 24 (21-32) mmol/L Anion Gap 7.0 (3-11) BUN 10 (7-18) mg/dl Creatinine 0.78 (0.6-1.4) mg/dl Est Cr Clr Drug Dosing 190.6 ml/min Est GFR ( Amer) 111.3 Est GFR (Non-Af Amer) 96.1 BUN/Creatinine Ratio 13.2 (10-20) Glucose 108 H (70-99) mg/dl Calcium 8.6 (8.5-10.1) mg/dl Magnesium 1.9 (1.8-2.4) mg/dl Total Bilirubin 0.7 (0.2-1) mg/dl AST 33 (15-37) U/L ALT 30 (12-78) U/L Alkaline Phosphatase 111 (45-117) U/L Troponin I 0.064 H* (0-0.045) ng/ml Total Protein 7.1 (6.4-8.2) gm/dl Albumin 3.1 L (3.4-5.0) gm/dl Globulin 4.0 (2.5-4.0) gm/dl Albumin/Globulin Ratio 0.8 L (0.9-2) Imaging Data Radiologist's Impression: CT angio chest PE protocol CT DOSE: 649.39 mGycm HISTORY: 65 years-old Male with Tachycardia, dyspnea, elevated troponin. Acute tachycardia with shortness of breath TECHNIQUE: Multiple CTA images of the chest were obtained after the intravenous administration of 120 ml Optiray 320. Coronal and sagittal MIPS were obtained from the axial data set and were submitted for review. All measurements were obtained according to NASCET criteria. A dose lowering technique was utilized adhering to the principles of ALARA. COMPARISON: CTA chest 10/06/2016 FINDINGS: CTA: Cardiomegaly with extensive coronary artery calcifications.. Trace pericardial effusion. There is no thoracic aortic aneurysm or dissection. Patency of the imaged great vessels. Dilated main pulmonary artery suggestive of pulmonary artery hypertension. Respiratory motion artifact limits the study. No filling defects identified to suggest thromboembolic disease. CT CHEST: No thyroid nodule. Prominent and mildly enlarged mediastinal and axillary chain lymph nodes 11 mm in short axis, previously 14 mm. Right axillary chain lymph nodes now measure up to 3.2 x 1.3 cm, previously 3.3 x 1.6 cm. No new or progressive adenopathy. There is no pneumothorax, pleural effusion, overt pulmonary edema or airspace consolidation typical for pneumonia. Calcific granuloma of the lateral segment right middle lobe. Mild bibasilar predominant bronchial wall thickening. There are no suspicious pulmonary nodules or masses. Central airways appear patent. Mild nonspecific distal esophageal wall thickening. Unchanged mild infiltration of the jero hepatis distribution with contracted gallbladder. Degenerative changes of the shoulders and spine. IMPRESSION: 1. No acute intrathoracic abnormality, specifically there is no evidence of pulmonary emboli. 2. Cardiomegaly with extensive coronary artery calcifications. 3. Prominent and enlarged mediastinal and axillary chain lymph nodes are redemonstrated, mildly decreased in size from the 2017 comparison. 4. No pleural effusion or airspace consolidation to suggest pneumonia. ACT 112: Negative or not required by law. The above report was generated using voice recognition software. It may contain grammatical, syntax or spelling errors. Electronically signed by: Kian Augustine M.D. 10/08/2020 6:59 AM MDM Narrative Patient was seen and evaluated as above in room A11. Review was performed of nursing notes and vital signs. I did review pertinent previous visits and patient history. After obtaining a thorough history and physical examination the above work up was performed. He presents to us today initially for evaluation of his right lateral calf bleeding varicosity. I cleansed the region with sterile saline and Betadine. I then applied Gelfoam to the regions after obtaining consent followed by an Carlos Eduardo wrap. There was no bleeding here. I will note though that in discussion with the patient and even while cleansing the leg the patient seemed to be quite short of breath and was tachycardic. Tachypnea was noted. The patient noted that this was likely chronic and has been short of breath for over a year now. He cites the reason as likely being off of his previously prescribed medication for his A. fib/a flutter secondary to financial strain. He is only taking Paxil at this time. The patient was amenable to work-up here as the patient seemed quite short of breath and tachypneic. He was also quite tachycardic. An EKG was obtained on arrival and revealed sinus tachycardia rate of 124 bpm. There is no ST elevation. QTc 428. There is no leukocytosis. There is anemia with hemoglobin of 9.0 which is a significant drop compared to 13.6 in April of this past year. Platelet and coags are normal. No evidence of kidney or liver failure. There is troponin elevation at 0.064. Covid testing negative. A CTA of the chest was obtained given patient presentation and this reveals cardiomegaly with extensive coronary artery calcifications however there does not appear to be any emergent process by CT. With the patient having an elevated troponin in the setting of dyspnea while at rest, sinus tachycardia in the 120s at rest without any obvious signs of dehydration it is felt that further evaluation and management in inpatient setting would be warranted. With the patient's hemoglobin is now 9 acute blood loss anemia was considered. The patient did show me pictures of his apartment after the bleeding had started and there was a fair amount of blood on his floor. I did perform a rectal examination and check this for occult blood of which was found to be negative after obtaining consent. The exact etiology of his hemoglobin decreased at this time is not known. With the persistence of tachycardia without signs of dehydration he was given 5 mg of IV Lopressor which decreased his heart rate into the 80s. When reevaluated he did not seem to be nearly as short of breath. I did discuss presentation with the attending physician as well as the hospitalist. I spoke with Dr. Obrien. We discussed the case. It was recommended to transfuse the patient given the patient's decreased hemoglobin compared to previous in the setting of right lower extremity varicose vein bleed with elevated troponin. Consent to transfuse form completed. Patient notes he has received transfusions before without trouble. 1 unit was ordered. Please refer to further documentation regarding his stay. Case was discussed with the attending physician. An order was placed for continuous cardiac monitoring. The monitor shows a rate of 81 with sinus rhythm. GCS: 15 In the evaluation and treatment of this patient the following differential diagnoses were entertained: PR, PE, pericarditis, costochondritis, CHF, acute blood loss anemia, GI bleed, electrolyte disturbance, alcohol withdrawal, among others. Impression & Plan Tachycardia, Dyspnea, Elevated troponin, Bleeding from varicose vein Discharge Plan Visit Data Chief Complaint: Bleeding Stated Complaint: BLEEDING ED Provider: Chetan Solis ED Midlevel Provider: Per Bliss Discharge Problem: Tachycardia, Dyspnea, Elevated troponin, Bleeding from varicose vein Patient Disposition: Admitted As Inpatient Discharge Instructions Interventions: ED Discharge Assessment Last Done: 10/08/20 11:09
[2020-10-08 05:05] LABS: Basophils # (auto) 0.04 K/uL (0-0.2); Basophils % (auto) 0.8 %; Eosinophils # (auto) 0.18 K/uL (0-0.5); Eosinophils % (auto) 3.7 %; Hematocrit (blood only) 28.9 % (42-52); Lymphocytes # (auto) 1.11 K/uL (1.2-3.4); Lymphocytes % (auto) 23.1 %; Mean Corpuscular Hemoglobin 24.4 pg (25-34); Mean Corpuscular Hgb Conc 31.1 g/dL (32-36); Mean Corpuscular Volume 78.3 fL (80-100); Mean Platelet Volume 9.2 fL (7.4-10.4); Monocytes # (auto) 0.83 K/uL (0.11-0.59); Monocytes % (auto) 17.3 %; Neutrophils # (auto) 2.65 K/uL (1.4-6.5); Neutrophils % (auto) 55.1 %; Platelet Count 166 K/uL (130-400); RDW Coefficient of Variation 17.2 % (11.5-14.5); RDW Standard Deviation 49.4 fL (36.4-46.3); Red Blood Count 3.69 M/uL (4.7-6.1); White Blood Count 4.81 K/uL (4.8-10.8)
[2020-10-08 05:33] LABS: Albumin Globulin Ratio 0.8 (0.9-2); Albumin Level 3.1 gm/dl (3.4-5.0); BUN Creatinine Ratio 13.2 (10-20); Bilirubin,Total 0.7 mg/dl (0.2-1); Calcium 8.6 mg/dl (8.5-10.1); Creatinine Clr Calc Pharmacy 190.6 ml/min; Est GFR (African American) 111.3; Est GFR (Non-African American) 96.1; Magnesium 1.9 mg/dl (1.8-2.4); Total Protein 7.1 gm/dl (6.4-8.2)
[2020-10-08 05:41] LABS: Troponin I 0.064 ng/ml (0-0.045)
[2020-10-08] MEDS ORDERED: OPTIRAY 320 125ml IV ONE (06:29)
--- NOTE | 2020-10-08 07:00 | CT Scan Report ---
CT angio chest PE protocol CT DOSE: 649.39 mGycm HISTORY: 65 years-old Male with Tachycardia, dyspnea, elevated troponin. Acute tachycardia with leighton rtness of breath TECHNIQUE: Multiple CTA images of the chest were obtained after the intravenous administration of 120 ml Optiray 320. Coronal and sagittal MIPS were obtained from the axial data set and were submitted for review. All measurements were obtained according to NASCET criteria. A dose lowering technique w as utilized adhering to the principles of ALARA. COMPARISON: CTA chest 10/06/2016 FINDINGS: CTA: Cardiomegaly with extensive coronary artery calcifications.. Trace pericardial effusion. There is no thoracic aortic aneurysm or dissection. Patency of the imaged great vessels. Dilated main pulmonary a rtery suggestive of pulmonary artery hypertension. Respiratory motion artifact limits the study. No f illing defects identified to suggest thromboembolic disease. CT CHEST: No thyroid nodule. Prominent and mildly enlarged mediastinal and axillary chain lymph nodes 11 mm in short axis, previously 14 mm. Right axillary chain lymph nodes now measure up to 3.2 x 1.3 cm, previo usly 3.3 x 1.6 cm. No new or progressive adenopathy. There is no pneumothorax, pleural effusion, overt pulmonary edema or airspace consolidation typical f or pneumonia. Calcific granuloma of the lateral segment right middle lobe. Mild bibasilar predominant bronchial wall thickening. There are no suspicious pulmonary nodules or masses. Central airways appe ar patent. Mild nonspecific distal esophageal wall thickening. Unchanged mild infiltration of the jero hepatis distribution with contracted gallbladder. Degenerative changes of the shoulders and spine. IMPRESSION: 1. No acute intrathoracic abnormality, specifically there is no evidence of pulmonary emboli. 2. Cardiomegaly with extensive coronary artery calcifications. 3. Prominent and enlarged mediastinal and axillary chain lymph nodes are redemonstrated, mildly decre ased in size from the 2017 comparison. 4. No pleural effusion or airspace consolidation to suggest pneumonia. ACT 112: Negative or not required by law. The above report was generated using voice recognition software. It may contain grammatical, syntax o r spelling errors. Electronically signed by: Kian Augustine M.D. 10/08/2020 6:59 AM
[2020-10-08] MEDS ORDERED: METOPROLOL TARTRATE 1 MG/ML VIAL IV STA (07:11)
[2020-10-08] MEDS ORDERED: SODIUM CHLORIDE 0.9% 1000ML 1,000 ML IV SCH (07:45)
[2020-10-08] MEDS ORDERED: SODIUM CHLORIDE 0.9% 250 ML IV PRN (07:52)
[2020-10-08] MEDS ORDERED: POLYETHYLENE (MIRALAX) 17 GM PACK PO PRN (07:59)
[2020-10-08] MEDS ORDERED: ACETAMINOPHEN 325 MG TAB PO PRN (07:59)
[2020-10-08] MEDS ORDERED: THIAMINE HCL 100 MG in SYRINGE 9 ML IV STA (08:11)
[2020-10-08] MEDS ORDERED: FOLIC ACID 1 MG in SYRINGE 9.8 ML IV STA (08:11)
[2020-10-08 08:37] LABS: INR 1.1 (0.9-1.1); Partial Thromboplastin Time 27.3 Seconds (21.0-31.0); Prothrombin Time 11.9 Seconds (9.0-12.0)
[2020-10-08 09:35] LABS: Ferritin 45.2 ng/ml (8-388)
--- NOTE | 2020-10-08 09:42 | History & Physical Report ---
Date of Service October 08, 2020 Assessment & Plan (1) Dyspnea: (2) Tachycardia: (3) Anemia: (4) Elevated troponin: (5) Paroxysmal atrial flutter: (6) Diastolic dysfunction: This is a 65-year-old male who has significant past medical history of diastolic dysfunction, paroxysmal atrial flutter, HTN, HLD, T2DM, LAUREN on CPAP, asthma, alcohol abuse, psoriatic arthropathy, psoriasis, gout, depression who presents to ED secondary to bleeding to right lower extremity and unable to get it to stop prior to arrival. Patient with sinus tachycardia, significant drop in hemoglobin from 13.6-9.0 and no overt signs of dehydration. CT negative for PE. Elevated troponin and sinus tachycardia possibly in setting of acute blood loss anemia. Transfuse 1 unit PRBC. No chest pain/sob at rest. Likely demand ischemia. Last echocardiogram performed 03/2020 revealed EF 55 to 60%, diastolic dysfun ction, moderately dilated left and right atrium, right ventricle dilated with RV hypokinesis sparing the right ventricular apex, moderate pulm hypertension, 59 mmHg Daily weights, strict I's and O's Repeat echocardiogram, cycle troponins Consult cardiology resume metoprolol tartrate, start 12.5 mg 4 times daily History of paroxysmal atrial flutter, in ED sinus tachycardia, monitor on tele Repeat H&H after transfusion as well as EKG Anemia panel revealed iron 28, TIBC 452, ferritin 45.2, folic acid and vitamin B12 pending Continue daily folic acid and vitamin B12 supplement, add ferrous sulfate once daily (7) Bleeding from varicose vein: Consult wound care Consult vascular Bleeding currently ceased Likely source of anemia (8) Edema of scrotum: obtain US elevate, pt denies pain (9) HTN (hypertension): pt with hx of HTN previously on metoprolol tartrate 50mg bid and lisinopril 20mg daily metoprolol re initiated 12.5 QID monitor (10) Diabetes mellitus type 2 in obese: Previously on metformin, currently no taking obtain a1c in a.m. glucose in ED 108 (11) LAUREN on CPAP: CPAP at HS (12) Alcohol abuse: drinks 6-8 beers daily daily thiamine and folic acid awss protocol, prn IV ativan monitor for s/sx of withdrawal (13) Psoriasis: previously on humira pt with patches and plaques on ext surfaces of upper ext and back recommend referral to rheum at discharge (14) DVT prophylaxis: No DVT prophylaxis in setting of anemia as well as bleeding R varicosity reassess need daily Disposition: admit to tele, case management consulted, pt with insurance issues causing inability to purchase medications Follow up: PCP Dr. Elmore upon discharge Pt was seen and examined in collaboration with Dr. Obrien, please see addendum History of Present Illness Chief Complaint: Bleeding to right lower extremity and unable to get it to stop prior to arrival. Primary Care Provider: Alec Elmore MD This is a 65-year-old male who has significant past medical history of diastolic dysfunction, paroxysmal atrial flutter, HTN, HLD, T2DM, LAUREN on CPAP, asthma, alcohol abuse, psoriatic arthropathy, psoriasis, gout, depression who presents to ED secondary to bleeding to right lower extremity and unable to get it to stop prior to arrival. He admits to a history of bleeding to varicosities in the past. Prior to arrival he reached down to his right lateral calf region and try to scratch itchy area and unroofed a scab of a small bleeding varicosity. It bled a significant amount per patient and when he was unable to get it to stop he called EMS. On further investigation he states that due to losing insurance he has not followed up with a physician in over a year and also has not been taking any of his medications. He admits to being short of breath for several months. Shortness of breath occurs with exertion. He has 14 steps in his house and if he carries up groceries he has to stop 2-3 times to catch his breath. He denies any chest discomfort with this, diaphoresis or nausea. He does have a family history of his father passing away in his 40s of an DE. He also has history of CPAP and does admit to wanting to start that again. He has history of atrial flutter in which she was prescribed metoprolol. He felt he was likely short of breath due to stopping his metoprolol and may be going back into atrial flutter. He lives by himself and does occasionally need a walker to walk. He denies any fever, chills, sweats, lightheadedness, dizziness, syncope, palpitations, cough, hemoptysis, nausea, vomiting, diarrhea, changes bowel or urinary habits. He further denies any hematuria, melena or hematochezia. Over the past 2 to 3 weeks he does notice increased swelling to his scrotal area. He denies any pain but due to swelling states that sometimes he is unable to control the location of his urination. Patient does drink 6+ beers daily. Last drink 10/07/2020. In ED his right lower extremity was cleaned and Gelfoam was placed with a compression Carlos Eduardo wrap. Bleeding ceased prior to arrival. He was tachycardic in ED and EKG did have inferior lateral ischemic changes. He did have a mild elevation of his troponin at 0.064. He was noted to have significant drop in hemoglobin from 13.6-9.0. He was consented for blood and 1 unit of PRBC was ordered. He also received 5 mg of IV Lopressor secondary to his sinus tachycardia. CTA of chest was obtained and negative for PE but did reveal cardiomegaly and extensive coronary artery calcification. Rectal exam was performed which was negative for occult blood. Allergies Allergy/AdvReac Type Severity Reaction Status Date / Time No Known Allergies Allergy Unverified 10/08/20 05:04 Home Medications Medication Instructions Recorded Confirmed Type paroxetine HCl [Paxil] 40 mg PO DAILY 04/15/20 10/08/20 History Past Med/Surg History Medical History Alcohol abuse Anemia Atrial flutter with rapid ventricular response BPH (benign prostatic hypertrophy) Depression Depression Diabetes mellitus type 2 in obese Gout History of cholesteatoma s/p radical mastoid 1991 [facility] HTN (hypertension) Hyperlipidemia Obesity (BMI 30-39.9) LAUREN on CPAP Paroxysmal atrial flutter Unspecified asthma Surgical History History of tympanoplasty S/P colonoscopy last 2016 hyperplastic polyp S/P tonsillectomy Status post surgical manipulation of ankle joint "L ankle fusion " Family History Father , 40s Myocardial infarction Social History Smoking Status: Former smoker Number of Years Since Quit: 30; Second Hand Exposure: No; Do You Dip or Chew Tobacco: No; Tobacco Cessation Education Requested by Patient: No Hx Alcohol Use: Yes Alcohol type: beer Alcohol Intake Frequency Comment: daily - 6 betsey beers, last drink 10/07 Hx Substance Use: No Preferred Language: German Communication Ability: Effective Autos Disassembler Required: No Beliefs That Will Affect Care: None Current Living Situation: Alone Other Information That Helps Us Care for You: No Feels Safe at Home: Yes Safety Concerns: Feels Safe At This Time Assistive Devices: None Review of Systems Review of Systems: All systems reviewed & are unremarkable except as noted in HPI & below Physical Exam Physical Exam: Constitutional: 65-year-old morbidly obese male, unkempt, WD/WN, vitals as above, NAD, sitting up in bed, pleasant, conversing easily Head: Normocephalic, Atraumatic Eyes: PERRL, conjunctivae normal, anicteric sclerae ENMT: external ear and nose normal, oropharynx normal Neck: trachea midline, no thyromegaly normal visual inspection Respiratory: normal respiratory effort, lungs clear to auscultation, no wheeze, rales, rhonchi. Normal insp/exp effort, no accessory muscle use Cardiovascular: Tachycardic rate, regular rhythm, occasional ectopy, no murmur, no edema, bilateral venous stasis insufficiency, right lower extremity compression Carlos Eduardo dressing in place, bilateral pedal pulse +2 and equal, dried blood to toes of right foot, Vessels: no JVD or carotid bruit Chest: normal inspection of chest, no pain to palpation of chest Abdomen: Protuberant abdomen, normal bowel sounds, soft, nontender Musculoskeletal: no cyanosis or clubbing, extremities motor strength 5/5 Skin: Patient with psoriatic scales and plaques to extensor surfaces of bilateral upper extremities and posterior thorax, warm and dry normal turgor Neurologic: PERRL, EOMI, accommodation nl, no face palsy, no dysarthria CN's II-XI intact bilaterally and moves all extremities Psychiatric: A+Ox3, euthymic affect Lymphatic: no cervical or axillary lymphadenopathy : Scrotal edema, no pain Results & Data Results & Data ([facility]) Vital Signs (Past 12 Hours) Vital Signs Temp Pulse Pulse Resp BP BP Pulse Ox 10/08/20 08:00 81 18 139/87 97 10/08/20 07:24 123 H 129/84 10/08/20 06:42 123 H 20 138/91 99 10/08/20 05:36 97 H 20 147/97 H 97 10/08/20 05:09 124 H 26 H 154/93 H 97 10/08/20 04:34 96 10/08/20 04:28 36.7 C 124 H 26 H 157/92 H 96 Diagnostic Findings CTA Chest: Radiologist's Impression: CT angio chest PE protocol CT DOSE: 649.39 mGycm HISTORY: 65 years-old Male with Tachycardia, dyspnea, elevated troponin. Acute tachycardia with shortness of breath TECHNIQUE: Multiple CTA images of the chest were obtained after the intravenous administration of 120 ml Optiray 320. Coronal and sagittal MIPS were obtained from the axial data set and were submitted for review. All measurements were obtained according to NASCET criteria. A dose lowering technique was utilized adhering to the principles of ALARA. COMPARISON: CTA chest 10/06/2016 FINDINGS: CTA: Cardiomegaly with extensive coronary artery calcifications.. Trace pericardial effusion. There is no thoracic aortic aneurysm or dissection. Patency of the imaged great vessels. Dilated main pulmonary artery suggestive of pulmonary artery hypertension. Respiratory motion artifact limits the study. No filling defects identified to suggest thromboembolic disease. CT CHEST: No thyroid nodule. Prominent and mildly enlarged mediastinal and axillary chain lymph nodes 11 mm in short axis, previously 14 mm. Right axillary chain lymph nodes now measure up to 3.2 x 1.3 cm, previously 3.3 x 1.6 cm. No new or progressive adenopathy. There is no pneumothorax, pleural effusion, overt pulmonary edema or airspace consolidation typical for pneumonia. Calcific granuloma of the lateral segment right middle lobe. Mild bibasilar predominant bronchial wall thickening. There are no suspicious pulmonary nodules or masses. Central airways appear patent. Mild nonspecific distal esophageal wall thickening. Unchanged mild infiltration of the jero hepatis distribution with contracted gallbladder. Degenerative changes of the shoulders and spine. IMPRESSION: 1. No acute intrathoracic abnormality, specifically there is no evidence of pulmonary emboli. 2. Cardiomegaly with extensive coronary artery calcifications. 3. Prominent and enlarged mediastinal and axillary chain lymph nodes are redemonstrated, mildly decreased in size from the 2017 comparison. 4. No pleural effusion or airspace consolidation to suggest pneumonia. ACT 112: Negative or not required by law. Medications Administered Discontinued Medications Gelatin (Gelatin Sponge 12-7mm) Confirm Administered Dose 1 ea .ROUTE .TheOfficialBoard ONE Stop: 10/08/20 04:26 Last Admin: 10/08/20 04:35 Dose: 1 ea Documented by: [id number] Sodium Chloride (Nss 1000ml) 1,000 mls @ 999 mls/hr IV .Q1H1M [place] Stop: 10/08/20 08:45 Last Infusion: 10/08/20 08:51 Dose: 0 mls/hr Documented by: [id number] Admin: 10/08/20 07:48 Dose: 999 mls/hr Documented by: [id number] Thiamine HCl 100 mg/ Syringe 10 mls @ 2 mls/min IV NOW STA Stop: 10/08/20 08:15 Last Admin: 10/08/20 08:53 Dose: 2 mls/min Documented by: [id number] Folic Acid 1 mg/ Syringe 10 mls @ 5 mls/min IV NOW STA Stop: 10/08/20 08:12 Last Admin: 10/08/20 08:53 Dose: 5 mls/min Documented by: [id number] Ioversol (Optiray 320 125ml) 120 ml IV ONCE ONE Stop: 10/08/20 06:30 Last Admin: 10/08/20 06:29 Dose: 120 ml Documented by: [id number] Metoprolol Tartrate (Metoprolol Tartrate 1 Mg/Ml Vial) 5 mg IV NOW STA Stop: 10/08/20 07:12 Last Admin: 10/08/20 07:24 Dose: 5 mg Documented by: [id number] ECG Rate (beats per minute): 124 Rhythm: sinus tachycardia Findings: + ST depression and + T-wave inversion COVID-19 Results Results COVID-19 Adm Lab Results: RBC 3.69 M/uL (4.7-6.1) L 10/08/20 WBC 4.81 K/uL (4.8-10.8) 10/08/20 Hgb 9.9 g/dL (14.0-18.0) L 10/08/20 Hct 31.4 % (42-52) L 10/08/20 Plt Count 166 K/uL (130-400) 10/08/20 Neutrophils (%) (Auto) 55.1 % 10/08/20 Lymphocytes (%) (Auto) 23.1 % 10/08/20 Monocytes # (Auto) 0.83 K/uL (0.11-0.59) H 10/08/20 Eosinophils # (Auto) 0.18 K/uL (0-0.5) 10/08/20 Immature Granulocyte % (Auto) 0.0 % 10/08/20 Neutrophils # (Auto) 2.65 K/uL (1.4-6.5) 10/08/20 Lymphocytes # (Auto) 1.11 K/uL (1.2-3.4) L 10/08/20 Monocytes # (Auto) 0.83 K/uL (0.11-0.59) H 10/08/20 Eosinophils # (Auto) 0.18 K/uL (0-0.5) 10/08/20 Basophils # (Auto) 0.04 K/uL (0-0.2) 10/08/20 Immature Granulocyte # (Auto) 0.00 K/uL (0.00-0.02) 10/08/20 Na 136 mmol/L (136-145) 10/08/20 K 4.0 mmol/L (3.5-5.1) 10/08/20 Cl 105 mmol/L (98-107) 10/08/20 CO2 24 mmol/L (21-32) 10/08/20 Anion Gap 7.0 (3-11) 10/08/20 BUN 10 mg/dl (7-18) 10/08/20 Creatinine 0.78 mg/dl (0.6-1.4) 10/08/20 BUN/Creatinine Ratio 13.2 (10-20) 10/08/20 Glucose Level 108 mg/dl (70-99) H 10/08/20 Ca 8.6 mg/dl (8.5-10.1) 10/08/20 Total Bilirubin 0.7 mg/dl (0.2-1) 10/08/20 AST/SGOT 33 U/L (15-37) 10/08/20 ALT/SGPT 30 U/L (12-78) 10/08/20 Alkaline Phosphatase 111 U/L (45-117) 10/08/20 Total Protein 7.1 gm/dl (6.4-8.2) 10/08/20 Albumin 3.1 gm/dl (3.4-5.0) L 10/08/20 Globulin 4.0 gm/dl (2.5-4.0) 10/08/20 Albumin/Globulin Ratio 0.8 (0.9-2) L 10/08/20 Troponin I 0.039 ng/ml (0-0.045) 10/08/20 EQ-Ica-D-Type Natriuretic Pep 821 pg/ml (0-900) 10/08/20 Ferritin 45.2 ng/ml (8-388) 10/08/20 PTT 27.3 Seconds (21.0-31.0) 10/08/20 INR 1.1 (0.9-1.1) 10/08/20 SARS-CoV-2, RNA, NAAT NEGATIVE (NEGATIVE) 10/08/20 Code Status & VTE Plan Code Status Full Code VTE Prophylaxis Plan VTE Prophylaxis will be ordered: No Reason for no VTE drug order: Contraindicated Reason for no VTE mechanical prophylaxis: Contraindicated Supervising Physician Co-Signing Physician Notes Pt seen and examined by me, care coordinated with Elvi Lakhani PA-C, pls refer to her note above for further detail. Pt is a 65 yo male w/ diastolic dysfunction, paroxysmal atrial flutter, HTN, HLD, T2DM, LAUREN on CPAP, asthma, alcohol abuse, psoriatic arthropathy, psoriasis, gout, depression who presents to ED secondary to bleeding to right lower extremity d/t varicosities. Prior to arrival he reached down to his right lateral calf region and try to scratch itchy area and unroofed a scab of a small bleeding varicosity. Of note, due to losing insurance he has not followed up with a physician in over a year and also has not been taking any of his medications. He admits to being short of breath for several months. He has history of atrial flutter for which he was prescribed metoprolol- has not been taking for a long time. He further denies any hematuria, melena or hematochezia. In ED his right lower extremity was cleaned and Gelfoam was placed with a compression Carlos Eduardo wrap. Bleeding ceased prior to arrival. He was tachycardic in ED and EKG did have inferior lateral ischemic changes. He did have a mild elevation of his troponin at 0.064. He was noted to have significant drop in hemoglobin from 13.6-9.0. He was consented for blood and 1 unit of PRBC was ordered. He also received 5 mg of IV Lopressor secondary to his sinus tachycardia. CTA of chest was obtained and negative for PE but did reveal cardiomegaly and extensive coronary artery calcification. Rectal exam was performed which was negative for occult blood. Currently pt is laying in bed in NAD. He is alert and oriented and answering questions appropriately. CARLOS EDUARDO wrap on RLE, bleeding stopped. Pt is comfortable. Heart rate down to 70-80s. Lung sounds clear to auscultation. Abdomen obese, soft, nontender. pt moves extremities spontaneously. Repeat Hgb 9.9. Will cont. to closely monitor. Johann Obrien MD
--- NOTE | 2020-10-08 12:11 | Cardiology Consultation ---
Date of Consultation October 08, 2020 Assessment & Plan (1) Psoriasis: (2) Paroxysmal atrial flutter: (3) Diabetes mellitus type 2 in obese: (4) Bleeding from varicose vein: (5) Alcohol abuse: From a cardiac standpoint the patient is stable. His cardiac troponins are elevated due to demand ischemia from tachycardia and anemia. I do not believe this is ACS. If the patient requires surgery on his varicose veins I believe that he is stable enough to proceed. He was not compliant with medications at home. I will resume beta-reji at a low dose for now. He is not a candidate for long-term anticoagulation. History of Present Illness Attending Physician: Pal Obrien MD History of Present Illness This is a 65-year-old male patient whom I last saw in my clinic in 2015 and then was lost to follow-up. He has a history of gout, psoriatic arthritis, diabetes and alcohol abuse. In 2010 he underwent a cardiac catheterization that showed only minor coronary artery disease but did indicate an elevated left ventricular end-diastolic pressure consistent with hypertensive heart disease. He has a history of known atrial flutter. According to my notes he is not a candidate for long-term anticoagulation due to compliance and alcohol. He was last admitted to this hospital in March 2020 after a fall in his apartment. At that time he was noted to be in atrial flutter with RVR. He has been admitted with spontaneous bleeding of varicose veins and anemia. He is currently receiving a blood transfusion and has no ongoing complaints. Allergies Allergy/AdvReac Type Severity Reaction Status Date / Time No Known Allergies Allergy Unverified 10/08/20 05:04 Home Medications Medication Instructions Recorded Confirmed Type paroxetine HCl [Paxil] 40 mg PO DAILY 04/15/20 10/08/20 History Patient History Medical History Alcohol abuse Anemia Atrial flutter with rapid ventricular response BPH (benign prostatic hypertrophy) Depression Depression Diabetes mellitus type 2 in obese Gout History of cholesteatoma s/p radical [place] [facility] [place] (hypertension) Hyperlipidemia Obesity (BMI 30-39.9) LAUREN on CPAP Paroxysmal atrial flutter Unspecified asthma Surgical History History of tympanoplasty S/P colonoscopy last 2016 hyperplastic polyp S/P tonsillectomy Status post surgical manipulation of ankle joint "L ankle fusion " Family History Father , 40s Myocardial infarction Social History Smoking Status: Former smoker Number of Years Since Quit: 30; Second Hand Exposure: No; Do You Dip or Chew Tobacco: No; Tobacco Cessation Education Requested by Patient: No Hx Alcohol Use: Yes Alcohol type: beer Alcohol Intake Frequency Comment: daily - 6 betsey beers, last drink 10/07 Hx Substance Use: No Preferred Language: Greenlandic Communication Ability: Effective Research Animal Attendant Required: No Beliefs That Will Affect Care: None Current Living Situation: Alone Other Information That Helps Us Care for You: No Feels Safe at Home: Yes Safety Concerns: Feels Safe At This Time Assistive Devices: Cane, CPAP and Glasses Review of Systems Review of Systems: All systems reviewed & are unremarkable except as noted in HPI & below Nothing additional to add Physical Exam Physical Exam: General: no acute distress and stated age Head: normocephalic, no masses, lesions, tenderness or abnormalities Eyes: conjunctiva are pink and non-injected, sclera clear Neck: supple, no adenopathy, no bruits, normal jugular venous pulse, no hepatojugular reflux Chest: normal shape and normal respiratory effort Lungs: clear to auscultation and percussion Cardiac Exam: - regular rate & rhythm, no murmurs gallops or rubs - normal S1, normal S2 Pulses: 2(+) throughout Abdomen: abdomen soft, non-tender, no abnormal masses and no hepatosplenomegaly Musculoskeletal: no gait disturbance, no joint inflammation, no deforming arthritis Extremities: Venous stasis changes both lower extremities with hemosiderin deposits. Neuro: grossly normal exam Results & Data ([facility]) Vital Signs (Past 12 Hours) Vital Signs Temp Pulse Pulse Resp BP BP Pulse Ox 10/08/20 11:27 36.7 C 97 H 20 97 10/08/20 11:18 10/08/20 11:00 80 18 138/81 97 10/08/20 10:30 36.7 C 81 18 139/87 97 10/08/20 10:15 36.8 C 82 18 130/86 97 10/08/20 09:59 36.8 C 81 18 117/83 97 10/08/20 08:00 81 18 139/87 97 10/08/20 07:24 123 H 129/84 10/08/20 06:42 123 H 20 138/91 99 10/08/20 05:36 97 H 20 147/97 H 97 10/08/20 05:09 124 H 26 H 154/93 H 97 10/08/20 04:34 96 10/08/20 04:28 36.7 C 124 H 26 H 157/92 H 96 Pulse Ox 10/08/20 11:27 10/08/20 11:18 97 10/08/20 11:00 10/08/20 10:30 10/08/20 10:15 10/08/20 09:59 10/08/20 08:00 10/08/20 07:24 10/08/20 06:42 10/08/20 05:36 10/08/20 05:09 10/08/20 04:34 10/08/20 04:28 Laboratory Results Laboratory Results - last 24 hr 10/08/20 10/08/20 10/08/20 04:54 04:54 08:14 WBC 4.81 RBC 3.69 L Hgb 9.0 L Hct 28.9 L MCV 78.3 L MCH 24.4 L MCHC 31.1 L RDW Std Deviation 49.4 H RDW Coeff of Noam 17.2 H Plt Count 166 MPV 9.2 Immature Gran % (Auto) 0.0 Neut % (Auto) 55.1 Lymph % (Auto) 23.1 Perkins % (Auto) 17.3 Eos % (Auto) 3.7 Baso % (Auto) 0.8 Neut # (Auto) 2.65 Lymph # (Auto) 1.11 L Perkins # (Auto) 0.83 H Eos # (Auto) 0.18 Baso # (Auto) 0.04 Immature Gran # (Auto) 0.00 PT INR APTT PTT Ratio Sodium 136 Potassium 4.0 Chloride 105 Carbon Dioxide 24 Anion Gap 7.0 BUN 10 Creatinine 0.78 Est Cr Clr Drug Dosing 190.6 Est GFR ( Amer) 111.3 Est GFR (Non-Af Amer) 96.1 BUN/Creatinine Ratio 13.2 Glucose 108 H Calcium 8.6 Magnesium 1.9 Iron TIBC Ferritin Total Bilirubin 0.7 AST 33 ALT 30 Alkaline Phosphatase 111 Troponin I 0.064 H* Total Protein 7.1 Albumin 3.1 L Globulin 4.0 Albumin/Globulin Ratio 0.8 L Vitamin B12 Folate COVID-19 Eval Order SARS-CoV-2, RNA, NAAT Blood Type O Positive Antibody Screen NEGATIVE Crossmatch See Detail 10/08/20 10/08/20 10/08/20 08:14 08:33 08:33 WBC RBC Hgb Hct MCV MCH MCHC RDW Std Deviation RDW Coeff of Noam Plt Count MPV Immature Gran % (Auto) Neut % (Auto) Lymph % (Auto) Perkins % (Auto) Eos % (Auto) Baso % (Auto) Neut # (Auto) Lymph # (Auto) Perkins # (Auto) Eos # (Auto) Baso # (Auto) Immature Gran # (Auto) PT 11.9 INR 1.1 APTT 27.3 PTT Ratio 1.0 Sodium Potassium Chloride Carbon Dioxide Anion Gap BUN Creatinine Est Cr Clr Drug Dosing Est GFR ( Amer) Est GFR (Non-Af Amer) BUN/Creatinine Ratio Glucose Calcium Magnesium Iron TIBC Ferritin Total Bilirubin AST ALT Alkaline Phosphatase Troponin I Total Protein Albumin Globulin Albumin/Globulin Ratio Vitamin B12 Folate COVID-19 Eval [facility] SARS-CoV-2, RNA, NAAT NEGATIVE Blood Type Antibody Screen Crossmatch 10/08/20 10/08/20 10/08/20 08:43 08:43 10:11 WBC RBC Hgb Hct MCV MCH MCHC RDW Std Deviation RDW Coeff of Noam Plt Count MPV Immature Gran % (Auto) Neut % (Auto) Lymph % (Auto) Perkins % (Auto) Eos % (Auto) Baso % (Auto) Neut # (Auto) Lymph # (Auto) Perkins # (Auto) Eos # (Auto) Baso # (Auto) Immature Gran # (Auto) PT INR APTT PTT Ratio Sodium Potassium Chloride Carbon Dioxide Anion Gap BUN Creatinine Est Cr Clr Drug Dosing Est GFR ( Amer) Est GFR (Non-Af Amer) BUN/Creatinine Ratio Glucose Calcium Magnesium Iron 28 L TIBC 452 H Ferritin 45.2 Total Bilirubin AST ALT Alkaline Phosphatase Troponin I 0.052 H* Total Protein Albumin Globulin Albumin/Globulin Ratio Vitamin B12 Cancelled Folate Cancelled COVID-19 Eval Order SARS-CoV-2, RNA, NAAT Blood Type Antibody Screen Crossmatch 10/08/20 11:10 WBC RBC Hgb Hct MCV MCH MCHC RDW Std Deviation RDW Coeff of Noam Plt Count MPV Immature Gran % (Auto) Neut % (Auto) Lymph % (Auto) Perkins % (Auto) Eos % (Auto) Baso % (Auto) Neut # (Auto) Lymph # (Auto) Perkins # (Auto) Eos # (Auto) Baso # (Auto) Immature Gran # (Auto) PT INR APTT PTT Ratio Sodium Potassium Chloride Carbon Dioxide Anion Gap BUN Creatinine Est Cr Clr Drug Dosing Est GFR ( Amer) Est GFR (Non-Af Amer) BUN/Creatinine Ratio Glucose Calcium Magnesium Iron TIBC Ferritin Total Bilirubin AST ALT Alkaline Phosphatase Troponin I Total Protein Albumin Globulin Albumin/Globulin Ratio Vitamin B12 340 Folate 16.30 COVID-19 Eval Order SARS-CoV-2, RNA, NAAT Blood Type Antibody Screen Crossmatch Medications Administered Current Inpatient Medications Acetaminophen (Acetaminophen 325 Mg Tab) 650 mg PO Q4H PRN PRN Reason: Pain or Fever Stop: 11/07/20 07:58 Sodium Chloride (Nss) 250 mls @ 15 mls/hr IV .[id number] PRN PRN Reason: For Transfusion Stop: 10/08/20 17:53 Polyethylene Glycol (Polyethylene (Miralax) 17 Gm Pack) 17 gm PO DAILY PRN PRN Reason: Constipation Stop: 11/07/20 07:58
[2020-10-08 12:16] LABS: Folate (Folic Acid) 16.3 ng/ml (>5.38)
[2020-10-08] MEDS ORDERED: LORazepam 1 MG/2 ML VIAL IV PRN (13:34)
--- NOTE | 2020-10-08 14:33 | Ultrasound Report ---
US scrotum/testicle CLINICAL HISTORY: 65 years-old Male with swollen testicles. Acute soft tissue swelling of the scrotu m COMPARISON STUDY: None TECHNIQUE: Real-time, grayscale, and color Doppler sonography of the testes and scrotum is performed. Images are reviewed in the transverse and longitudinal planes. FINDINGS: RIGHT HEMISCROTUM: The right testis measures 3.3 x 2.4 x 3.6 cm and the parenchyma appears unremarkab le aside from testicular microlithiasis. No intratesticular mass is seen. Normal-appearing arterial i nflow is present within the right testicle. The right epididymal head appears normal. No varicocele. Complex moderately sized hydrocele. Partially reducible fat filled right inguinal hernia. LEFT HEMISCROTUM: The left testis measures 4.0 x 2.9 x 2.7 cm and the parenchyma appears unremarkable aside from testicular microlithiasis. No intratesticular mass is seen. Normal-appearing arterial inf low is present within the left testicle. Tiny epididymal head cysts are noted measuring up to 3 mm[address] mall varicocele. Complex moderately sized hydrocele. Partially reducible fat filled left inguinal her bryan. IMPRESSION: 1. No testicular torsion or mass. 2. Complex moderately sized hydroceles. 3. Left-sided varicocele. 4. Bilateral testicular microlithiasis. 5. Fat filled partially reducible bilateral inguinal hernias. ACT 112: Negative or not required by law. The above report was generated using voice recognition software. It may contain grammatical, syntax o r spelling errors. Electronically signed by: Kian Augustine M.D. 10/08/2020 2:32 PM
[2020-10-08] MEDS ORDERED: PANTOprazole 40 MG TAB PO ONE (15:45)
[2020-10-08 15:46] LABS: Hematocrit (blood only) 30.1 % (42-52); Hemoglobin 9.7 g/dL (14.0-18.0)
[2020-10-08] MEDS: THIAMINE HCL 100 MG TAB PO SCH (17:18)
[2020-10-08] MEDS: PARoxetine HCL 20 MG TAB PO SCH (17:18)
[2020-10-08] MEDS: FOLIC ACID 1 MG TAB PO SCH (17:18)
[2020-10-08] MEDS: FERROUS SULFATE 325 MG TAB PO SCH (17:18)
[2020-10-08] MEDS: PANTOprazole 40 MG TAB PO SCH ×2 (17:25→20:03)
[2020-10-08 18:22] LABS: Hematocrit (blood only) 31.4 % (42-52); Hemoglobin 9.9 g/dL (14.0-18.0)
[2020-10-08] MEDS: METOPROLOL TARTRATE 25 MG TAB PO SCH (20:03)
--- NOTE | 2020-10-09 05:39 | Electrocardiogram Report ---
Test Reason : Blood Pressure : / mmHG Vent. Rate : 124 BPM Atrial Rate : 124 BPM P-R Int : 184 ms QRS Dur : 086 ms QT Int : 298 ms P-R-T Axes : 000 076 238 degrees QTc Int : 428 ms Atrial flutter with 2 to 1 block Abnormal ECG When compared with ECG of 28-APR-2020 22:15, T wave inversion now evident in Inferolateral leads Confirmed by Wyatt Solomon ([id number]) on 10/09/2020 5:38:42 AM Referred By: REFERRED SELF Confirmed By:Wyatt Solomon
[2020-10-09 06:52] LABS: Basophils # (auto) 0.04 K/uL (0-0.2); Basophils % (auto) 0.8 %; Eosinophils # (auto) 0.12 K/uL (0-0.5); Eosinophils % (auto) 2.4 %; Hematocrit (blood only) 29.7 % (42-52); Hemoglobin 9.4 g/dL (14.0-18.0); Lymphocytes # (auto) 1.24 K/uL (1.2-3.4); Lymphocytes % (auto) 25.1 %; Mean Corpuscular Hemoglobin 24.9 pg (25-34); Mean Corpuscular Hgb Conc 31.6 g/dL (32-36); Mean Corpuscular Volume 78.8 fL (80-100); Mean Platelet Volume 9.9 fL (7.4-10.4); Monocytes % (auto) 14.1 %; Neutrophils # (auto) 2.85 K/uL (1.4-6.5); Neutrophils % (auto) 57.6 %; Platelet Count 154 K/uL (130-400); RDW Coefficient of Variation 17.3 % (11.5-14.5); RDW Standard Deviation 49.4 fL (36.4-46.3); Red Blood Count 3.77 M/uL (4.7-6.1); White Blood Count 4.95 K/uL (4.8-10.8)
[2020-10-09 07:14] LABS: Albumin Level 3.1 gm/dl (3.4-5.0); BUN Creatinine Ratio 14.5 (10-20); Calcium 8.9 mg/dl (8.5-10.1); Creatinine Clr Calc Pharmacy 117.2 ml/min; Est GFR (African American) 100.9; Est GFR (Non-African American) 87.1; Magnesium 1.8 mg/dl (1.8-2.4); Potassium 4.1 mmol/L (3.5-5.1)
[2020-10-09 07:17] LABS: Albumin Globulin Ratio 0.9 (0.9-2); Globulin 3.6 gm/dl (2.5-4.0); Total Protein 6.7 gm/dl (6.4-8.2)
--- NOTE | 2020-10-09 07:32 | Hospitalist Progress Note ---
Date of Service October 09, 2020 Assessment & Plan (1) Dyspnea: (2) Tachycardia: (3) Anemia: (4) Elevated troponin: (5) Paroxysmal atrial flutter: (6) Diastolic dysfunction: This is a 65-year-old male who has significant past medical history of diastolic dysfunction, paroxysmal atrial flutter, HTN, HLD, T2DM, LAUREN on CPAP, asthma, alcohol abuse, psoriatic arthropathy, psoriasis, gout, depression who presents to ED secondary to bleeding to right lower extremity and unable to get it to stop prior to arrival. Patient with sinus tachycardia, significant drop in hemoglobin from 13.6-9.0 and no overt signs of dehydration. CT negative for PE. Elevated troponin and sinus tachycardia possibly in setting of acute blood loss anemia. Transfused 1 unit PRBC. No chest pain/sob at rest. Likely demand ischemia. Last echocardiogram performed 03/2020 revealed EF 55 to 60%, diastolic dysfu nction, moderately dilated left and right atrium, right ventricle dilated with RV hypokinesis sparing the right ventricular apex, moderate pulm hypertension, 59 mmHg Daily weights, strict I's and O's Repeat echocardiogram - cycled troponins Consult cardiology Resumed metoprolol tartrate, start 12.5 mg BID - discussed with the pt that the medication is on 4$ list at [facility] History of paroxysmal atrial flutter, in ED sinus tachycardia, monitor on tele - now HR controlled, shows Aflutter Repeat H&H after transfusion - stable Anemia panel revealed iron 28, TIBC 452, ferritin 45.2, folic acid and vitamin B12 - wnl Continue daily folic acid and vitamin B12 supplement, add ferrous sulfate once daily (7) Bleeding from varicose vein: Consult wound care Consult vascular surgery - recommend outpt follow up Bleeding currently ceased Likely source of anemia (8) Edema of scrotum: obtained US 1. No testicular torsion or mass. 2. Complex moderately sized hydroceles. 3. Left-sided varicocele. 4. Bilateral testicular microlithiasis. 5. Fat filled partially reducible bilateral inguinal hernias. elevate, pt denies pain, voids w/o difficulty - follow up further as outpt (9) HTN (hypertension): pt with hx of HTN previously on metoprolol tartrate 50mg bid and lisinopril 20mg daily metoprolol re initiated 12.5mg BID monitor (10) Diabetes mellitus type 2 in obese: Previously on metformin, currently not taking current a1c in 5.7% glucose in ED 108 (11) LAUREN on CPAP: CPAP at HS (12) Alcohol abuse: drinks 6-8 beers daily daily thiamine and folic acid awss protocol, prn IV ativan monitor for s/sx of withdrawal (13) Psoriasis: previously on humira pt with patches and plaques on ext surfaces of upper ext and back recommend referral to rheum at discharge (14) DVT prophylaxis: No DVT prophylaxis in setting of anemia as well as bleeding R varicosity reassess need daily Disposition: admit to tele, case management consulted, pt with insurance issues causing inability to purchase medications Follow up: PCP Dr. Elmore upon discharge Admission and Anticipated Discharge Date Admission Date: October 08, 2020 Subjective Pt seen in a follow up of anemia, varicose vein bleed, aflutter. Currently pt is laying in bed in [facility]. Bleeding has ceased. Hgb stable. HR in 70s Aflutter on telemetry. Denies any ches pain, shortness of breath, dizziness, lightheadedness. Review of Systems Review of Systems: All systems reviewed & are unremarkable except as noted in HPI & below Constitutional: no fever and no chills Respiratory: no cough and no dyspnea Cardiovascular: no chest pain and no palpitations Gastrointestinal: no abdominal pain, no nausea and no vomiting Physical Exam Physical Exam: Constitutional: morbidly obese male, NAD, sitting up in bed Head: Normocephalic, Atraumatic Eyes: PERRL, conjunctivae normal, anicteric sclerae ENMT: external ear and nose normal, oropharynx normal Neck: trachea midline, no thyromegaly normal visual inspection Respiratory: normal respiratory effort, lungs clear to auscultation, no wheeze, rales, rhonchi. Normal insp/exp effort, no accessory muscle use Cardiovascular: regular, occasional ectopy, no murmur, no edema, bilateral venous stasis insufficiency, right lower extremity compression Carlos Eduardo dressing in place, bilateral pedal pulse +2 and equal, Vessels: no JVD or carotid bruit Chest: normal inspection of chest, no pain to palpation of chest Abdomen: obese abdomen, normal bowel sounds, soft, nontender Musculoskeletal: no cyanosis or clubbing, extremities motor strength 5/5, moves extremities spontaneously Skin: Patient with psoriatic scales and plaques to extensor surfaces of bilateral upper extremities and posterior thorax, warm and dry normal turgor Neurologic: PERRL, EOMI, no face palsy, no dysarthria CN's II-XI intact bilaterally and moves all extremities Psychiatric: A+Ox3, euthymic affect Results & Data Results & Data ([facility]) Vital Signs (Past 12 Hours) Vital Signs Temp Pulse Pulse Resp BP Pulse Ox 10/09/20 06:58 37.1 C 78 24 120/78 98 10/09/20 04:10 76 24 99 10/09/20 03:10 37.0 C 102 H 19 109/59 L 100 10/09/20 00:24 81 10/08/20 23:56 36.8 C 80 19 106/62 100 10/08/20 23:15 81 26 H 98 Laboratory Results 10/09/20 10/09/20 10/09/20 Range/Units 06:34 06:34 06:34 WBC 4.95 (4.8-10.8) K/uL RBC 3.77 L (4.7-6.1) M/uL Hgb 9.4 L (14.0-18.0) g/dL Hct 29.7 L (42-52) % MCV 78.8 L (80-100) fL MCH 24.9 L (25-34) pg MCHC 31.6 L (32-36) g/dL RDW Std Deviation 49.4 H (36.4-46.3) fL RDW Coeff of Noam 17.3 H (11.5-14.5) % Plt Count 154 (130-400) K/uL MPV 9.9 (7.4-10.4) fL Immature Gran % (Auto) 0.0 % Neut % (Auto) 57.6 % Lymph % (Auto) 25.1 % Victoria % (Auto) 14.1 % Eos % (Auto) 2.4 % Baso % (Auto) 0.8 % Neut # (Auto) 2.85 (1.4-6.5) K/uL Lymph # (Auto) 1.24 (1.2-3.4) K/uL Victoria # (Auto) 0.70 H (0.11-0.59) K/uL Eos # (Auto) 0.12 (0-0.5) K/uL Baso # (Auto) 0.04 (0-0.2) K/uL Immature Gran # (Auto) 0.00 (0.00-0.02) K/uL PT (9.0-12.0) Seconds INR (0.9-1.1) APTT (21.0-31.0) Seconds PTT Ratio Sodium 137 (136-145) mmol/L Potassium 4.1 (3.5-5.1) mmol/L Chloride 108 H (98-107) mmol/L Carbon Dioxide 23 (21-32) mmol/L Anion Gap 6.0 (3-11) BUN 13 (7-18) mg/dl Creatinine 0.93 (0.6-1.4) mg/dl Est Cr Clr Drug Dosing 117.2 ml/min Est GFR ( Amer) 100.9 Est GFR (Non-Af Amer) 87.1 BUN/Creatinine Ratio 14.5 (10-20) Glucose 131 H (70-99) mg/dl Estimat Average Glucose Pending Hemoglobin A1c Pending Calcium 8.9 (8.5-10.1) mg/dl Magnesium 1.8 (1.8-2.4) mg/dl Iron (35-175) mcg/dl TIBC (250-450) mcg/dl Ferritin (8-388) ng/ml Total Bilirubin 1.0 (0.2-1) mg/dl AST 28 (15-37) U/L ALT 29 (12-78) U/L Alkaline Phosphatase 104 (45-117) U/L Troponin I (0-0.045) ng/ml NT-Pro-B Natriuret Pep (0-900) pg/ml Total Protein 6.7 (6.4-8.2) gm/dl Albumin 3.1 L (3.4-5.0) gm/dl Globulin 3.6 (2.5-4.0) gm/dl Albumin/Globulin Ratio 0.9 (0.9-2) Triglycerides 71 (0-150) mg/dl Cholesterol 72 (0-200) mg/dl LDL Cholesterol, Calc 38 mg/dl VLDL Cholesterol, Calc 14 mg/dl HDL Cholesterol 20 mg/dl Cholesterol/HDL Ratio 4 Vitamin B12 Folate COVID-19 Eval Order SARS-CoV-2, RNA, NAAT (NEGATIVE) Blood Type Antibody Screen Crossmatch 10/08/20 10/08/20 10/08/20 Range/Units 18:00 15:35 15:35 WBC (4.8-10.8) K/uL RBC (4.7-6.1) M/uL Hgb 9.9 L 9.7 L (14.0-18.0) g/dL Hct 31.4 L 30.1 L (42-52) % MCV (80-100) fL MCH (25-34) pg MCHC (32-36) g/dL RDW Std Deviation (36.4-46.3) fL RDW Coeff of Noam (11.5-14.5) % Plt Count (130-400) K/uL MPV (7.4-10.4) fL Immature Gran % (Auto) % Neut % (Auto) % Lymph % (Auto) % Victoria % (Auto) % Eos % (Auto) % Baso % (Auto) % Neut # (Auto) (1.4-6.5) K/uL Lymph # (Auto) (1.2-3.4) K/uL Victoria # (Auto) (0.11-0.59) K/uL Eos # (Auto) (0-0.5) K/uL Baso # (Auto) (0-0.2) K/uL Immature Gran # (Auto) (0.00-0.02) K/uL PT (9.0-12.0) Seconds INR (0.9-1.1) APTT (21.0-31.0) Seconds PTT Ratio Sodium (136-145) mmol/L Potassium (3.5-5.1) mmol/L Chloride (98-107) mmol/L Carbon Dioxide (21-32) mmol/L Anion Gap (3-11) BUN (7-18) mg/dl Creatinine (0.6-1.4) mg/dl Est Cr Clr Drug Dosing ml/min Est GFR ( Amer) Est GFR (Non-Af Amer) BUN/Creatinine Ratio (10-20) Glucose (70-99) mg/dl Estimat Average Glucose Hemoglobin A1c Calcium (8.5-10.1) mg/dl Magnesium (1.8-2.4) mg/dl Iron (35-175) mcg/dl TIBC (250-450) mcg/dl Ferritin (8-388) ng/ml Total Bilirubin (0.2-1) mg/dl AST (15-37) U/L ALT (12-78) U/L Alkaline Phosphatase (45-117) U/L Troponin I 0.039 (0-0.045) ng/ml NT-Pro-B Natriuret Pep (0-900) pg/ml Total Protein (6.4-8.2) gm/dl Albumin (3.4-5.0) gm/dl Globulin (2.5-4.0) gm/dl Albumin/Globulin Ratio (0.9-2) Triglycerides (0-150) mg/dl Cholesterol (0-200) mg/dl LDL Cholesterol, Calc mg/dl VLDL Cholesterol, Calc mg/dl HDL Cholesterol mg/dl Cholesterol/HDL Ratio Vitamin B12 Folate COVID-19 Eval Order SARS-CoV-2, RNA, NAAT (NEGATIVE) Blood Type Antibody Screen Crossmatch 10/08/20 10/08/20 10/08/20 Range/Units 11:10 10:11 10:11 WBC (4.8-10.8) K/uL RBC (4.7-6.1) M/uL Hgb (14.0-18.0) g/dL Hct (42-52) % MCV (80-100) fL MCH (25-34) pg MCHC (32-36) g/dL RDW Std Deviation (36.4-46.3) fL RDW Coeff of Noam (11.5-14.5) % Plt Count (130-400) K/uL MPV (7.4-10.4) fL Immature Gran % (Auto) % Neut % (Auto) % Lymph % (Auto) % Victoria % (Auto) % Eos % (Auto) % Baso % (Auto) % Neut # (Auto) (1.4-6.5) K/uL Lymph # (Auto) (1.2-3.4) K/uL Victoria # (Auto) (0.11-0.59) K/uL Eos # (Auto) (0-0.5) K/uL Baso # (Auto) (0-0.2) K/uL Immature Gran # (Auto) (0.00-0.02) K/uL PT (9.0-12.0) Seconds INR (0.9-1.1) APTT (21.0-31.0) Seconds PTT Ratio Sodium (136-145) mmol/L Potassium (3.5-5.1) mmol/L Chloride (98-107) mmol/L Carbon Dioxide (21-32) mmol/L Anion Gap (3-11) BUN (7-18) mg/dl Creatinine (0.6-1.4) mg/dl Est Cr Clr Drug Dosing ml/min Est GFR ( Amer) Est GFR (Non-Af Amer) BUN/Creatinine Ratio (10-20) Glucose (70-99) mg/dl Estimat Average Glucose Hemoglobin A1c Calcium (8.5-10.1) mg/dl Magnesium (1.8-2.4) mg/dl Iron (35-175) mcg/dl TIBC (250-450) mcg/dl Ferritin (8-388) ng/ml Total Bilirubin (0.2-1) mg/dl AST (15-37) U/L ALT (12-78) U/L Alkaline Phosphatase (45-117) U/L Troponin I 0.052 H* (0-0.045) ng/ml NT-Pro-B Natriuret Pep 821 (0-900) pg/ml Total Protein (6.4-8.2) gm/dl Albumin (3.4-5.0) gm/dl Globulin (2.5-4.0) gm/dl Albumin/Globulin Ratio (0.9-2) Triglycerides (0-150) mg/dl Cholesterol (0-200) mg/dl LDL Cholesterol, Calc mg/dl VLDL Cholesterol, Calc mg/dl HDL Cholesterol mg/dl Cholesterol/HDL Ratio Vitamin B12 340 Folate 16.30 COVID-19 Eval Order SARS-CoV-2, RNA, NAAT (NEGATIVE) Blood Type Antibody Screen Crossmatch 10/08/20 10/08/20 10/08/20 Range/Units 08:43 08:43 08:33 WBC (4.8-10.8) K/uL RBC (4.7-6.1) M/uL Hgb (14.0-18.0) g/dL Hct (42-52) % MCV (80-100) fL MCH (25-34) pg MCHC (32-36) g/dL RDW Std Deviation (36.4-46.3) fL RDW Coeff of Noam (11.5-14.5) % Plt Count (130-400) K/uL MPV (7.4-10.4) fL Immature Gran % (Auto) % Neut % (Auto) % Lymph % (Auto) % Victoria % (Auto) % Eos % (Auto) % Baso % (Auto) % Neut # (Auto) (1.4-6.5) K/uL Lymph # (Auto) (1.2-3.4) K/uL Victoria # (Auto) (0.11-0.59) K/uL Eos # (Auto) (0-0.5) K/uL Baso # (Auto) (0-0.2) K/uL Immature Gran # (Auto) (0.00-0.02) K/uL PT (9.0-12.0) Seconds INR (0.9-1.1) APTT (21.0-31.0) Seconds PTT Ratio Sodium (136-145) mmol/L Potassium (3.5-5.1) mmol/L Chloride (98-107) mmol/L Carbon Dioxide (21-32) mmol/L Anion Gap (3-11) BUN (7-18) mg/dl Creatinine (0.6-1.4) mg/dl Est Cr Clr Drug Dosing ml/min Est GFR ( Amer) Est GFR (Non-Af Amer) BUN/Creatinine Ratio (10-20) Glucose (70-99) mg/dl Estimat Average Glucose Hemoglobin A1c Calcium (8.5-10.1) mg/dl Magnesium (1.8-2.4) mg/dl Iron 28 L (35-175) mcg/dl TIBC 452 H (250-450) mcg/dl Ferritin 45.2 (8-388) ng/ml Total Bilirubin (0.2-1) mg/dl AST (15-37) U/L ALT (12-78) U/L Alkaline Phosphatase (45-117) U/L Troponin I (0-0.045) ng/ml NT-Pro-B Natriuret Pep (0-900) pg/ml Total Protein (6.4-8.2) gm/dl Albumin (3.4-5.0) gm/dl Globulin (2.5-4.0) gm/dl Albumin/Globulin Ratio (0.9-2) Triglycerides (0-150) mg/dl Cholesterol (0-200) mg/dl LDL Cholesterol, Calc mg/dl VLDL Cholesterol, Calc mg/dl HDL Cholesterol mg/dl Cholesterol/HDL Ratio Vitamin B12 Cancelled Folate Cancelled COVID-19 Eval Order SARS-CoV-2, RNA, NAAT NEGATIVE (NEGATIVE) Blood Type Antibody Screen Crossmatch 10/08/20 10/08/20 10/08/20 Range/Units 08:33 08:14 08:14 WBC (4.8-10.8) K/uL RBC (4.7-6.1) M/uL Hgb (14.0-18.0) g/dL Hct (42-52) % MCV (80-100) fL MCH (25-34) pg MCHC (32-36) g/dL RDW Std Deviation (36.4-46.3) fL RDW Coeff of Noam (11.5-14.5) % Plt Count (130-400) K/uL MPV (7.4-10.4) fL Immature Gran % (Auto) % Neut % (Auto) % Lymph % (Auto) % Victoria % (Auto) % Eos % (Auto) % Baso % (Auto) % Neut # (Auto) (1.4-6.5) K/uL Lymph # (Auto) (1.2-3.4) K/uL Victoria # (Auto) (0.11-0.59) K/uL Eos # (Auto) (0-0.5) K/uL Baso # (Auto) (0-0.2) K/uL Immature Gran # (Auto) (0.00-0.02) K/uL PT 11.9 (9.0-12.0) Seconds INR 1.1 (0.9-1.1) APTT 27.3 (21.0-31.0) Seconds PTT Ratio 1.0 Sodium (136-145) mmol/L Potassium (3.5-5.1) mmol/L Chloride (98-107) mmol/L Carbon Dioxide (21-32) mmol/L Anion Gap (3-11) BUN (7-18) mg/dl Creatinine (0.6-1.4) mg/dl Est Cr Clr Drug Dosing ml/min Est GFR ( Amer) Est GFR (Non-Af Amer) BUN/Creatinine Ratio (10-20) Glucose (70-99) mg/dl Estimat Average Glucose Hemoglobin A1c Calcium (8.5-10.1) mg/dl Magnesium (1.8-2.4) mg/dl Iron (35-175) mcg/dl TIBC (250-450) mcg/dl Ferritin (8-388) ng/ml Total Bilirubin (0.2-1) mg/dl AST (15-37) U/L ALT (12-78) U/L Alkaline Phosphatase (45-117) U/L Troponin I (0-0.045) ng/ml NT-Pro-B Natriuret Pep (0-900) pg/ml Total Protein (6.4-8.2) gm/dl Albumin (3.4-5.0) gm/dl Globulin (2.5-4.0) gm/dl Albumin/Globulin Ratio (0.9-2) Triglycerides (0-150) mg/dl Cholesterol (0-200) mg/dl LDL Cholesterol, Calc mg/dl VLDL Cholesterol, Calc mg/dl HDL Cholesterol mg/dl Cholesterol/HDL Ratio Vitamin B12 Folate COVID[facility]19 [facility] SARS-CoV-2, RNA, NAAT (NEGATIVE) Blood Type O Positive Antibody Screen NEGATIVE Crossmatch See Detail Medications Administered Current Inpatient Medications Acetaminophen (Acetaminophen 325 Mg Tab) 650 mg PO Q4H PRN PRN Reason: Pain or Fever Stop: 11/07/20 07:58 Ferrous Sulfate (Ferrous Sulfate 325 Mg Tab) 325 mg PO [facility] Stop: 11/07/20 13:59 Last Admin: 10/08/20 17:18 Dose: 325 mg Documented by: Folic Acid (Folic Acid 1 Mg Tab) 1 mg PO QAM [facility] Stop: 11/07/20 13:59 Last Admin: 10/08/20 17:18 Dose: 1 mg Documented by: Lorazepam (Ativan) 1 mg in 2 mls @ 2 mls/min IV ONE PRN; Protocol PRN Reason: EtoH Withdrawal AWSS 6-10 Stop: 11/07/20 13:33 Metoprolol Tartrate (Metoprolol Tartrate 25 Mg Tab) 12.5 mg PO BID [facility] Stop: 11/07/20 20:59 Last Admin: 10/08/20 20:03 Dose: 12.5 mg Documented by: Pantoprazole Sodium (Pantoprazole 40 Mg Tab) 40 mg PO BID [facility] Stop: 11/07/20 13:59 Last Admin: 10/08/20 20:03 Dose: 40 mg Documented by: Paroxetine HCl (Paroxetine Hcl 20 Mg Tab) 40 mg PO DAILY [facility] Stop: 11/07/20 13:59 Last Admin: 10/08/20 17:18 Dose: 40 mg Documented by: Polyethylene Glycol (Polyethylene (Miralax) 17 Gm Pack) 17 gm PO DAILY PRN PRN Reason: Constipation Stop: 11/07/20 07:58 Thiamine HCl (Thiamine Hcl 100 Mg Tab) 100 mg PO QAM [facility] Stop: 11/07/20 13:59 Last Admin: 10/08/20 17:18 Dose: 100 mg Documented by:
[2020-10-09 07:54] LABS: Estimated Average Glucose 117 mg/dl; Hemoglobin A1C 5.7 % (4.5-5.6)
--- NOTE | 2020-10-09 09:11 | Discharge Summary ---
Date of Service October 09, 2020 Admission HPI Per Admitting Provider This is a 65-year-old male who has significant past medical history of diastolic dysfunction, paroxysmal atrial flutter, HTN, HLD, T2DM, LAUREN on CPAP, asthma, alcohol abuse, psoriatic arthropathy, psoriasis, gout, depression who presents to ED secondary to bleeding to right lower extremity and unable to get it to stop prior to arrival. He admits to a history of bleeding to varicosities in the past. Prior to arrival he reached down to his right lateral calf region and try to scratch itchy area and unroofed a scab of a small bleeding varicosity. It bled a significant amount per patient and when he was unable to get it to stop he called EMS. On further investigation he states that due to losing insurance he has not followed up with a physician in over a year and also has not been taking any of his medications. He admits to being short of breath for several months. Shortness of breath occurs with exertion. He has 14 steps in his house and if he carries up groceries he has to stop 2-3 times to catch his breath. He denies any chest discomfort with this, diaphoresis or nausea. He does have a family history of his father passing away in his 40s of an [place]. He also has history of CPAP and does admit to wanting to start that again. He has history of atrial flutter in which she was prescribed metoprolol. He felt he was likely short of breath due to stopping his metoprolol and may be going back into atrial flutter. He lives by himself and does occasionally need a walker to walk. He denies any fever, chills, sweats, lightheadedness, dizziness, syncope, palpitations, cough, hemoptysis, nausea, vomiting, diarrhea, changes bowel or urinary habits. He further denies any hematuria, melena or hematochezia. Over the past 2 to 3 weeks he does notice increased swelling to his scrotal area. He denies any pain but due to swelling states that sometimes he is unable to control the location of his urination. Patient does drink 6+ beers daily. Last drink 10/07/2020. In ED his right lower extremity was cleaned and Gelfoam was placed with a compression Carlos Eduardo wrap. Bleeding ceased prior to arrival. He was tachycardic in ED and EKG did have inferior lateral ischemic changes. He did have a mild elevation of his troponin at 0.064. He was noted to have significant drop in hemoglobin from 13.6-9.0. He was consented for blood and 1 unit of PRBC was ordered. He also received 5 mg of IV Lopressor secondary to his sinus tachycardia. CTA of chest was obtained and negative for PE but did reveal cardiomegaly and extensive coronary artery calcification. Rectal exam was performed which was negative for occult blood. Admission Exam Per Admitting Provider Constitutional: 65-year-old morbidly obese male, unkempt, WD/WN, vitals as above, NAD, sitting up in bed, pleasant, conversing easily Head: Normocephalic, Atraumatic Eyes: PERRL, conjunctivae normal, anicteric sclerae ENMT: external ear and nose normal, oropharynx normal Neck: trachea midline, no thyromegaly normal visual inspection Respiratory: normal respiratory effort, lungs clear to auscultation, no wheeze, rales, rhonchi. Normal insp/exp effort, no accessory muscle use Cardiovascular: Tachycardic rate, regular rhythm, occasional ectopy, no murmur, no edema, bilateral venous stasis insufficiency, right lower extremity compression Carlos Eduardo dressing in place, bilateral pedal pulse +2 and equal, dried blood to toes of right foot, Vessels: no JVD or carotid bruit Chest: normal inspection of chest, no pain to palpation of chest Abdomen: Protuberant abdomen, normal bowel sounds, soft, nontender Musculoskeletal: no cyanosis or clubbing, extremities motor strength 5/5 Skin: Patient with psoriatic scales and plaques to extensor surfaces of bilatera l upper extremities and posterior thorax, warm and dry normal turgor Neurologic: PERRL, EOMI, accommodation nl, no face palsy, no dysarthria CN's II-XI intact bilaterally and moves all extremities Psychiatric: A+Ox3, euthymic affect Lymphatic: no cervical or axillary lymphadenopathy : Scrotal edema, no pain Principal Diagnosis Acute blood loss anemia Varicose vein bleed Scrotal edema Discharge Exam Constitutional: morbidly obese male, NAD, sitting up in bed Head: Normocephalic, Atraumatic Eyes: PERRL, conjunctivae normal, anicteric sclerae ENMT: external ear and nose normal, oropharynx normal Neck: trachea midline, no thyromegaly normal visual inspection Respiratory: normal respiratory effort, lungs clear to auscultation, no wheeze, rales, rhonchi. Normal insp/exp effort, no accessory muscle use Cardiovascular: regular, occasional ectopy, no murmur, no edema, bilateral peter ous stasis insufficiency, right lower extremity compression Carlos Eduardo dressing in place, bilateral pedal pulse +2 and equal, Vessels: no JVD or carotid bruit Chest: normal inspection of chest, no pain to palpation of chest Abdomen: obese abdomen, normal bowel sounds, soft, nontender Musculoskeletal: no cyanosis or clubbing, extremities motor strength 5/5, moves extremities spontaneously Skin: Patient with psoriatic scales and plaques to extensor surfaces of bilateral upper extremities and posterior thorax, warm and dry normal turgor Neurologic: PERRL, EOMI, no face palsy, no dysarthria CN's II-XI intact bilaterally and moves all extremities Psychiatric: A+Ox3, euthymic affect Discharge Data Allergies Allergy/AdvReac Type Severity Reaction Status Date / Time No Known Allergies Allergy Unverified 10/08/20 05:04 Consultations 10/08/20 08:02 Consult Case Management - Discharge Planning Routine 10/08/20 09:13 Consult Cardiology Routine Ordered Studies 10/08/20 05:41 CT angio chest PE protocol Stat IMPRESSION: 1. No acute intrathoracic abnormality, specifically there is no evidence of pulmonary emboli. 2. Cardiomegaly with extensive coronary artery calcifications. 3. Prominent and enlarged mediastinal and axillary chain lymph nodes are re- demonstrated, mildly decreased in size from the 2017 comparison. 4. No pleural effusion or airspace consolidation to suggest pneumonia. 10/08/20 13:34 US scrotum/testicle Routine IMPRESSION: 1. No testicular torsion or mass. 2. Complex moderately sized hydroceles. 3. Left-sided varicocele. 4. Bilateral testicular microlithiasis. 5. Fat filled partially reducible bilateral inguinal hernias. Hospital Course (1) Dyspnea: (2) Tachycardia: (3) Anemia: (4) Elevated troponin: (5) Paroxysmal atrial flutter: (6) Diastolic dysfunction: This is a 65-year-old male who has significant past medical history of diastolic dysfunction, paroxysmal atrial flutter, HTN, HLD, T2DM, LAUREN on CPAP, asthma, alcohol abuse, psoriatic arthropathy, psoriasis, gout, depression who presents to ED secondary to bleeding to right lower extremity and unable to get it to stop prior to arrival. Patient with sinus tachycardia, significant drop in hemoglobin from 13.6-9.0 and no overt signs of dehydration. CT negative for PE. Elevated troponin and sinus tachycardia possibly in setting of acute blood loss anemia. Transfused 1 unit PRBC. No chest pain/sob at rest. Likely demand ischemia. Last echocardiogram performed 03/2020 revealed EF 55 to 60%, diastolic dysfunction, moderately dilated left and right atrium, right ventricle dilated with RV hypokinesis sparing the right ventricular apex, moderate pulm hypertension, 59 mmHg Daily weights, strict I's and O's Repeat echocardiogram - LV normal in size, EF 60-65%, RV mod. dilated, RV syst. function mod. reduced, LA mod. dilated, LA mod. dilated, Mild MR. Pulm. HTN s uspected, pulm. art. pressure 55-60 mm Hg. cycled troponins Consult cardiology Resumed metoprolol tartrate, start 12.5 mg BID - discussed with the pt that the medication is on 4$ list at [facility] History of paroxysmal atrial flutter, in ED sinus tachycardia, monitor on tele - now HR controlled, shows Aflutter Repeat H&H after transfusion - stable Anemia panel revealed iron 28, TIBC 452, ferritin 45.2, folic acid and vitamin B12 - wnl Continue daily folic acid and vitamin B12 supplement, add ferrous sulfate once daily (7) Bleeding from varicose vein: Consult wound care Consult vascular surgery - recommend outpt follow up Bleeding currently ceased Likely source of anemia (8) Edema of scrotum: obtained US 1. No testicular torsion or mass. 2. Complex moderately sized hydroceles. 3. Left-sided varicocele. 4. Bilateral testicular microlithiasis. 5. Fat filled partially reducible bilateral inguinal hernias. elevate, pt denies pain, voids w/o difficulty - follow up further as outpt (9) HTN (hypertension): pt with hx of HTN previously on metoprolol tartrate 50mg bid and lisinopril 20mg daily metoprolol re initiated 12.5mg BID monitor (10) Diabetes mellitus type 2 in obese: Previously on metformin, currently not taking current a1c in 5.7% glucose in ED 108 (11) LAUREN on CPAP: CPAP at HS (12) Alcohol abuse: drinks 6-8 beers daily daily thiamine and folic acid awss protocol, prn IV ativan monitor for s/sx of withdrawal (13) Psoriasis: previously on humira pt with patches and plaques on ext surfaces of upper ext and back recommend referral to rheum at discharge (14) DVT prophylaxis: No DVT prophylaxis in setting of anemia as well as bleeding R varicosity reassess need daily Disposition: admit to tele, case management consulted, pt with insurance issues causing inability to purchase medications Follow up: PCP Dr. Elmore upon discharge Total Time Total Time Spent Total Time Spent (In Minutes): 35 Total Time Includes: Examination of the Patient, Discharge Planning, Medication Reconciliation and Communication With Other Providers Discharge Plan Discharge Items Patient Disposition: Home - Self-Care Reason For Visit: BLEED,ANEMIA,SOB Discharge Diagnosis: Acute blood loss anemia Varicose vein bleed Activity: Per Instructions section Non-emergency contact: Primary Care Provider Call non-emergency contact if: you have any medication questions and your symptoms worsen Follow-up/Referrals: Alec Elmore MD [Primary Care Provider] - Diet: Heart Healthy Addtl Attending Provider Instructions: Follow up with your primary care provider, the appointment is already scheduled for Friday 10/13 at 2:40 pm. Take metoprolol to help with your heart rhythm. This medication should be on 4$ list at [email or web address]. Recommend to take iron supplement to help with your anemia, and omeprazole given your history of gastritis. Discuss this medication further with your family doctor. You should also follow up with vascular surgery to help with your varicose veins. Pending Studies at Discharge: No Stand-Alone Forms: [facility] C[facility] Medications and DC Order Prescriptions: New metoprolol tartrate 25 mg Tablet 12.5 mg PO BID 30 Days Qty: 30 RF: 0 ferrous sulfate 325 mg (65 mg iron) Tablet,Delayed Release (Dr/Ec) 325 mg PO QAM Qty: 30 RF: 0 omeprazole 20 mg capsule,delayed release(DR/EC) 20 mg PO DAILY Qty: 30 RF: 0 Continued paroxetine HCl [Paxil] 40 mg Tablet 40 mg PO DAILY RF: 0 Discharge Orders: Discharge Order (Routine); Ordered 10/09/20 Ordered By: Pal Obrien Admission Data Admit Date/Time: 10/08/20 07:59 Attending Provider: Pal Obrien Admit Provider: Pal Obrien Primary Care Provider: Alec Elmore Other Providers: Shaq Donnelly
[2020-10-09] MEDS: FERROUS SULFATE 325 MG TAB PO SCH (09:33)
[2020-10-09] MEDS: PANTOprazole 40 MG TAB PO SCH (09:33)
[2020-10-09] MEDS: FOLIC ACID 1 MG TAB PO SCH (09:33)
[2020-10-09] MEDS: THIAMINE HCL 100 MG TAB PO SCH (09:33)
[2020-10-09] MEDS: METOPROLOL TARTRATE 25 MG TAB PO SCH (09:34)
[2020-10-09] MEDS: PARoxetine HCL 20 MG TAB PO SCH (09:34)
== END 2020-10-09 11:08 | disposition home or self-care (01) | DRG 300 ==
LOC: ED 04:15 → INTOOBSV 07:59 → EDINP 07:59 → 2S 15:03

== ENCOUNTER 2020-10-22 21:00 | Inpatient (IN) ==
[2020-10-22 22:08] LABS: Basophils # (auto) 0.02 K/uL (0-0.2); Basophils % (auto) 0.2 %; Hematocrit (blood only) 29.5 % (42-52); Hemoglobin 9.5 g/dL (14.0-18.0); Immature Granulocytes # (auto) 0.04 K/uL (0.00-0.02); Immature Granulocytes % (auto) 0.4 %; Lymphocytes # (auto) 0.75 K/uL (1.2-3.4); Lymphocytes % (auto) 6.6 %; Mean Corpuscular Hemoglobin 24.8 pg (25-34); Mean Corpuscular Hgb Conc 32.2 g/dL (32-36); Monocytes # (auto) 0.22 K/uL (0.11-0.59); Monocytes % (auto) 1.9 %; Neutrophils # (auto) 10.38 K/uL (1.4-6.5); Neutrophils % (auto) 90.9 %; Platelet Count 195 K/uL (130-400); RDW Coefficient of Variation 16.9 % (11.5-14.5); RDW Standard Deviation 47.4 fL (36.4-46.3); Red Blood Count 3.83 M/uL (4.7-6.1); White Blood Count 11.41 K/uL (4.8-10.8)
[2020-10-22 22:15] LABS: Albumin Level 3.3 gm/dl (3.4-5.0); BUN Creatinine Ratio 8.5 (10-20); Calcium 9.1 mg/dl (8.5-10.1); Creatinine Clr Calc Pharmacy 85.4 ml/min; Est GFR (African American) 66.1; Magnesium 1.5 mg/dl (1.8-2.4); Potassium 3.8 mmol/L (3.5-5.1)
[2020-10-22 22:17] LABS: Albumin Globulin Ratio 0.8 (0.9-2); Bilirubin,Total 1.8 mg/dl (0.2-1); Globulin 4.3 gm/dl (2.5-4.0); Total Protein 7.6 gm/dl (6.4-8.2)
[2020-10-22 22:31] LABS: Troponin I 0.084 ng/ml (0-0.045)
[2020-10-22 22:49] LABS: Influenza A virus by PCR Negative (Neg); Influenza B virus by PCR Negative (Neg); RSV by PCR Negative (Neg); SARS CoV2 RNA(COVID-19) InHosp NEGATIVE (Negative)
[2020-10-22] MEDS ORDERED: ASPIRIN 81 MG CHEW PO STA (23:05)
[2020-10-22] MEDS ORDERED: FUROSEMIDE 40 MG/4 ML VIAL IV STA (23:05)
[2020-10-22] MEDS ORDERED: cefTRIAXone SODIUM 2,000 MG/70 ML BAG IV STA (23:05)
[2020-10-22] MEDS ORDERED: DOXYCYCLINE HYCLATE 100 MG CAP PO STA (23:05)
[2020-10-22] MEDS: MAGNESIUM SULFATE / D5W 1 GM/100 ML BAG IV SCH (23:41)
[2020-10-22 23:54] LABS: Appearance Urine Clear (Clear); Bacteria Urine Automated Negative (Negative); Bilirubin Urine Negative (Negative); Blood Urine 2+ (Negative); Cast Urine Automated 0 /lpf (0-5); Color Urine Orange; Epithelial Cell Urine Auto 20-30 /lpf (0-5); Glucose Urine UA Negative (Negative); Ketones Urine Negative (Negative); Leukocyte Esterase Urine Negative (Negative); Nitrite Urine Negative (Negative); Protein Urine 2+ (Negative); Specific Gravity Urine 1.015 (1.000-1.030); Urobilinogen Urine Positive (Negative); pH Urine 6.5 (4.5-7.5)
[2020-10-23] MEDS ORDERED: METOPROLOL TARTRATE 1 MG/ML VIAL IV STA ×2 (00:29→05:29)
[2020-10-23] MEDS: MAGNESIUM SULFATE / D5W 1 GM/100 ML BAG IV SCH (00:29)
[2020-10-23] MEDS ORDERED: LORazepam 3 MG/6 ML VIAL IV PRN (01:13)
[2020-10-23] MEDS ORDERED: GABAPENTIN 1200MG ALCOHOL WITHDRAWAL LOAD PO STA (01:13)
[2020-10-23] MEDS ORDERED: METOPROLOL TARTRATE 1 MG/ML VIAL IV PRN (01:13)
[2020-10-23] MEDS ORDERED: NITROGLYCERIN SL 0.4 MG/TAB TAB SL PRN (01:13)
[2020-10-23] MEDS ORDERED: POLYETHYLENE (MIRALAX) 17 GM PACK PO PRN (01:13)
[2020-10-23] MEDS ORDERED: LORazepam 1 MG/2 ML VIAL IV PRN (01:13)
[2020-10-23] MEDS ORDERED: ATIVAN IV ALCOHOL WITHDRAWL IV PRN (01:13)
[2020-10-23] MEDS ORDERED: GABAPENTIN 600 MG TAB PO ONE (01:13)
--- NOTE | 2020-10-23 03:06 | History and Physical Report ---
DATE OF ADMISSION: 10/23/2020 CHIEF COMPLAINT: Shortness of breath. HISTORY OF PRESENT ILLNESS: This is a 65-year-old male with past medical history significant for diastolic dysfunction, paroxysmal atrial flutter, hypertension, diabetes, obstructive sleep apnea on CPAP, asthma, alcohol abuse, psoriatic arthropathy, psoriasis, gout, depression, who was recently in the hospital due to bleeding of the right lower extremity and was also treated for alcohol withdrawal, comes back because of shortness of breath. The patient is having shortness of breath last couple of days, he could not get up and walk because of shortness of breath. Denies any chest pain, no dizziness, no headache, no blurred vision, no earache, no runny nose, no sore throat. Appetite is okay. He says he is still drinking 6-8 beers every day, last drink was couple of days ago. He lives alone. He says he ambulates sometimes with cane. Denies any diarrhea or constipation. Normal bladder movements. Denies any cough, no fever. He was tachycardic and hypertensive in the ER and was requiring 3 liters oxygen. Chest x-ray, possible congestion and his troponin was 0.08 and BNP was 2037. COVID was negative. Flu is negative. ALLERGIES: No known drug allergies. PAST MEDICAL HISTORY: As mentioned above. PAST SURGICAL HISTORY: Colonoscopy, tonsillectomy, left ankle fusion. FAMILY HISTORY: [place]. SOCIAL HISTORY: Former smoker. Drinks alcohol every day. Lives alone. REVIEW OF SYMPTOMS: As per HPI. Rest of review of systems negative. MEDICATIONS: The patient is on ferrous sulfate 325 mg q. a.m., metoprolol tartrate 12.5 mg p.o. b.i.d., omeprazole 20 mg p.o. daily, paroxetine 40 mg p.o. daily. PHYSICAL EXAMINATION: GENERAL: The patient is obese, not in acute distress. VITAL SIGNS: Temperature 36.4, pulse 120s, respiratory rate 20, blood pressure 180/96, oxygen 97% on 3 liters. HEENT: Pupils equal, round, reactive to light. Oral mucosa somewhat dry. NECK: No JVD, no neck masses seen. CARDIOVASCULAR: S1, S2 heard. Tachycardia. No murmurs. RESPIRATORY SYSTEM: Normal AP diameter. No accessory muscle use. No wheezing. Mild bibasilar crackles. ABDOMEN: Soft, bowel sounds present, nontender, nondistended. CENTRAL NERVOUS SYSTEM: Alert and oriented. Speech clear, no facial droop. Moves extremities. Obeys simple commands. EXTREMITIES: Bilateral lower extremity chronic skin changes seen and somewhat foul smelling and also some open cuts in the plantar aspect of the right foot near the big toe. No drainage seen. LABORATORY DATA: WBC 7.4, hemoglobin 9.5, hematocrit 29.5, platelets 195. Sodium 135, potassium 3.8, chloride 102, bicarbonate 24, BUN 11, creatinine 1.3, serum glucose 151, calcium 9.1, magnesium 1.5, total bilirubin 1.8, AST 29, ALT 29, alkaline phosphatase 120, total creatinine kinase 81. Troponin I 0.08. BNP 2036. Urinalysis negative. SARS-CoV-2 PCR negative. Influenza A and B negative. RSV negative. Chest x-ray, possible congestion. ASSESSMENT AND PLAN: This is a 65-year-old male who presents with shortness of breath. 1. Shortness of breath most likely acute on chronic diastolic congestive heart failure and also right sided heart failure. ER gave one dose of iv Lasix 40mg. We will continue with iv 40mg Lasix daily. Follow daily weights, I's and O's, monitor in the tele floor. Consult cardiology in the a.m. Will also get ct chest to rule out PE. 2. Tachycardia, most likely alcohol withdrawal. The patient was also on high dose of Lopressor in the past. Currently on 12.5 b.i.d. We will continue the 12.[address] him on IV Lopressor p.r.n. and monitor the heart rates and adjust medications and await cardiac input. 3. Alcoholism, alcohol withdrawal with tachycardia and hypertension. We will continue with gabapentin protocol and also IV Ativan p.r.n. Continue with IV thiamine, IV folic acid. Closely monitor for withdrawal. 4.Questionable pneumonia. n iv Rocephin and Doxycycline. will follow ct scan. 5. Lower extremity Cellulitis? open wound on right foot. Abx as above. Will also get doppler. 6 Anemia. Hemoglobin is stable at 9.5, on iron supplements. We will continue. 7. Hypertension, currently uncontrolled. Previously was on lisinopril 20 mg and metoprolol tartrate 50 mg b.i.d. On last admission, he was discharged on metoprolol 12.5 mg b.i.d., which we will continue and place him on IV Lopressor. Monitor blood pressure. 8. Diabetes. Last HbA1c was 5.7. We will monitor the blood sugar. 9. Obstructive sleep apnea, on CPAP at bedtime. 10. Psoriasis. Previously on Humira. Needs followup. 11. History of paroxysmal atrial flutter. We will monitor. Await cardiac input. 12. Hypomagnesemia, replaced in the ER.Follow labs 13. Mild elevation of troponin. We will follow the serial enzymes. 14. Deep venous thrombosis prophylaxis, heparin sub q DISPOSITION: Closely monitor in tele floor. Level 1 full code. Expect discharge home and follow with family doctor. GRAZYNA
[2020-10-23] MEDS: ACETAMINOPHEN 325 MG TAB PO PRN ×2 (04:01→17:10)
--- NOTE | 2020-10-23 05:37 | Hospitalist Progress Note ---
Date of Service October 23, 2020 Assessment & Plan Admission and Anticipated Discharge Date Admission Date: October 23, 2020 Subjective DVt px. No heparin was ordered because of recent lower ext bleeding. Scds for now. Results & Data Results & Data ([facility]) Vital Signs (Past 12 Hours) Vital Signs Temp Pulse Pulse Resp BP BP Pulse Ox 10/23/20 05:11 37.8 C H 10/23/20 03:51 39.4 C H 120 H 32 H 148/84 H 97 10/23/20 02:11 120 H 28 H 96 10/23/20 01:34 120 H 10/23/20 01:25 36.7 C 120 H 23 144/83 H 98 10/23/20 01:13 10/23/20 00:47 106 H 30 H 118/77 98 10/23/20 00:37 122 H 182/96 H 10/23/20 00:31 122 H 30 H 93 10/23/20 00:30 122 H 27 H 182/96 H 96 10/23/20 00:01 122 H 24 96 10/23/20 00:00 122 H 26 H 173/105 H 95 10/22/20 23:31 123 H 25 H 97 10/22/20 23:30 123 H 27 H 177/100 H 96 10/22/20 23:00 123 H 27 H 171/110 H 10/22/20 22:31 123 H 26 H 97 10/22/20 22:30 123 H 26 H 186/103 H 96 10/22/20 22:06 122 H 28 H 98 10/22/20 21:31 123 H 25 H 100 10/22/20 21:30 123 H 23 182/109 H 98 10/22/20 21:22 36.4 C L 123 H 26 H 184/111 H 97 Pulse Ox 10/23/20 05:11 10/23/20 03:51 10/23/20 02:11 10/23/20 01:34 10/23/20 01:25 10/23/20 01:13 98 10/23/20 00:47 10/23/20 00:37 10/23/20 00:31 10/23/20 00:30 10/23/20 00:01 10/23/20 00:00 10/22/20 23:31 10/22/20 23:30 10/22/20 23:00 10/22/20 22:31 10/22/20 22:30 10/22/20 22:06 10/22/20 21:31 10/22/20 21:30 10/22/20 21:22
[2020-10-23] MEDS ORDERED: SODIUM CHLORIDE 0.9% 10ML FLUSH IV ONE (05:39)
[2020-10-23] MEDS ORDERED: SODIUM BICARB 8.4% INJ 50 MEQ/50 ML SYR IV ONE (05:39)
[2020-10-23] MEDS ORDERED: CALCIUM CHLORIDE 10% 10 ML SYR IV ONE (05:39)
[2020-10-23 06:03] LABS: Basophils # (auto) 0.03 K/uL (0-0.2); Basophils % (auto) 0.3 %; Hemoglobin 9.3 g/dL (14.0-18.0); Immature Granulocytes # (auto) 0.07 K/uL (0.00-0.02); Immature Granulocytes % (auto) 0.6 %; Lymphocytes # (auto) 0.32 K/uL (1.2-3.4); Lymphocytes % (auto) 2.9 %; Mean Corpuscular Hemoglobin 24.4 pg (25-34); Mean Corpuscular Hgb Conc 32.1 g/dL (32-36); Mean Corpuscular Volume 76.1 fL (80-100); Monocytes # (auto) 0.78 K/uL (0.11-0.59); Monocytes % (auto) 7.1 %; Neutrophils # (auto) 9.85 K/uL (1.4-6.5); Neutrophils % (auto) 89.1 %; Platelet Count 169 K/uL (130-400); RDW Coefficient of Variation 16.8 % (11.5-14.5); RDW Standard Deviation 46.5 fL (36.4-46.3); Red Blood Count 3.81 M/uL (4.7-6.1); White Blood Count 11.05 K/uL (4.8-10.8)
[2020-10-23] MEDS ORDERED: PNEUMOCOCCAL Polysaccharide Vaccine 25mcg/0.5mL vial/Syr IM ONE (06:15)
[2020-10-23] MEDS ORDERED: OPTIRAY 320 125ml IV ONE (06:28)
--- NOTE | 2020-10-23 06:38 | Emergency Department Note ---
History of Present Illness General Chief complaint: Illness Stated complaint: SOB, WEAKNESS Time Seen by Provider: 10/22/20 21:37 Source: patient Mode of arrival: EMS Limitations: no limitations History of Present Illness This patient is a 65-year-old male who presents to the emergency department for evaluation of shortness of breath, chills and weakness for the past 2 days. Patient states that he has been more short of breath and has had chills. He states that he generally does not feel good and feels very weak. He states that he has been confined to his bed due to the weakness. He states that he typically drinks 8-10 beers per day, however has been unable to due to his weakness. Patient was recently admitted here. Patient is unaware of any COVID- 19 exposures, but does work at [employer]. Patient denies any chest pain, abdominal pain or vomiting. He denies any increased swelling. Home Medications Medication Instructions Recorded Confirmed Type paroxetine HCl [Paxil] 40 mg PO DAILY 04/15/20 10/22/20 History ferrous sulfate 325 mg PO QAM #30 tab 10/09/20 10/22/20 Rx metoprolol tartrate 12.5 mg PO BID 30 Days #30 tab 10/09/20 10/22/20 Rx omeprazole 20 mg PO DAILY #30 cap 10/09/20 10/22/20 Rx Allergies Allergy/AdvReac Type Severity Reaction Status Date / Time No Known Allergies Allergy Verified 10/22/20 23:24 Past Med/Surg History Medical History Alcohol abuse Anemia Atrial flutter with rapid ventricular response BPH (benign prostatic hypertrophy) Depression Depression Diabetes mellitus type 2 in obese Gout History of cholesteat[place] s/[place] radical [place] [facility] [place]ension) Hyperlipidemia Obesity (BMI 30-39.9) LAUREN on CPAP Paroxysmal atrial flutter Unspecified asthma Surgical History History of tympanoplasty S/P colonoscopy last 2016 hyperplastic polyp S/P tonsillectomy Status post surgical manipulation of ankle joint "L ankle fusion " Family History Father , 40s Myocardial infarction Social History (Reviewed 10/23/20 @ 11:28 by CARLO Gleason Smoking Status: Never smoker Number of Years Since Quit: 30; Second Hand Exposure: No; Hx Alcohol Use: Yes Alcohol type: beer Alcohol Intake Frequency Comment: daily - 6 betsey beers, last drink 10/07 Hx Substance Use: No Preferred Language: Khmer Communication Ability: Effective Route Rider Supervisor Required: No Beliefs That Will Affect Care: None Current Living Situation: Alone Feels Safe at Home: Yes Safety Concerns: Feels Safe At This Time Assistive Devices: None Review of Systems A total of 10 systems reviewed and were otherwise negative Physical Exam Vital Signs Vital Signs - 24 hr 10/22/20 21:22 10/22/20 21:30 10/22/20 21:31 Temperature 36.4 C L Temperature Source Oral Pulse Rate 123 H 123 H 123 H Pulse Rate from SpO2 Sensor 124 H 125 H Respiratory Rate 26 H 23 25 H Respiratory Effort / Characteristics Spontaneous Labored Respiratory Depth Normal Blood Pressure 184/111 H 182/109 H Blood Pressure Mean 135 133 Pulse Oximetry 97 98 100 Oxygen Delivery Method Room Air Room Air Nasal Cannula Oxygen Flow Rate 3 Sepsis New/Unexplained Change in Mental Status N/A Sepsis Action Taken by Nursing No Action Required 10/22/20 22:06 10/22/20 22:30 10/22/20 22:31 Temperature Temperature Source Pulse Rate 122 H 123 H 123 H Pulse Rate from SpO2 Sensor 123 H 123 H Respiratory Rate 28 H 26 H 26 H Respiratory Effort / Characteristics Respiratory Depth Blood Pressure 186/103 H Blood Pressure Mean 130 Pulse Oximetry 98 96 97 Oxygen Delivery Method Room Air Nasal Cannula Nasal Cannula Oxygen Flow Rate 3 3 Sepsis New/Unexplained Change in Mental Status Sepsis Action Taken by Nursing 10/22/20 23:00 10/22/20 23:30 10/22/20 23:31 Temperature Temperature Source Pulse Rate 123 H 123 H 123 H Pulse Rate from SpO2 Sensor 125 H 123 H Respiratory Rate 27 H 27 H 25 H Respiratory Effort / Characteristics Respiratory Depth Blood Pressure 171/110 H 177/100 H Blood Pressure Mean 130 125 Pulse Oximetry 96 97 Oxygen Delivery Method Nasal Cannula Nasal Cannula Oxygen Flow Rate 3 3 Sepsis New/Unexplained Change in Mental Status Sepsis Action Taken by Nursing 10/23/20 00:00 10/23/20 00:01 Temperature Temperature Source Pulse Rate 122 H 122 H Pulse Rate from SpO2 Sensor 122 H 122 H Respiratory Rate 26 H 24 Respiratory Effort / Characteristics Respiratory Depth Blood Pressure 173/105 H Blood Pressure Mean 127 Pulse Oximetry 95 96 Oxygen Delivery Method Oxymask Oxymask Oxygen Flow Rate 3 3 Sepsis New/Unexplained Change in Mental Status Sepsis Action Taken by Nursing VITALS: Vitals are noted on the nurse's note and reviewed by myself. GENERAL: This is a 65-year-old male, ill-appearing, tachypneic. SKIN: The skin was without rashes, erythema, edema, or bruising. There is no tenting of the skin. Capillary reflex less than 2 seconds. HEAD: Normocephalic atraumatic. EARS: External auditory canals clear, tympanic membranes pearly mcfarland without erythema or effusion bilaterally. EYES: Pupils equal round and reactive to light and accommodation. MOUTH: Mucous membranes dry. NECK: Supple without nuchal rigidity. No lymphadenopathy. HEART: Tachycardic, regular rhythm without murmurs gallops or rubs. LUNGS: Tachypneic, increased work of breathing noted. Lung sounds diminished throughout. ABDOMEN: Positive bowel sounds x 4. Soft, nontender. EXTREMITIES: Skin changes consistent with peripheral vascular disease noted. M ultiple scaly lesions noted to the lower extremities. 2+ pitting edema noted. NEURO: Patient was alert and oriented to person place and time. Course Administered Medications Acetaminophen (Acetaminophen 325 Mg Tab) 650 mg PO Q4H PRN PRN Reason: Pain or Fever Stop: 11/22/20 01:12 Last Admin: 10/23/20 17:10 Dose: 650 mg Documented by: [id number] Admin: 10/23/20 04:01 Dose: 650 mg Documented by: [id number] Ferrous Sulfate (Ferrous Sulfate 325 Mg Tab) [facility] [place] Stop: 11/22/20 08:59 Last Admin: 10/23/20 08:35 Dose: 325 mg Documented by: [id number] Thiamine HCl 100 mg/ Syringe 10 mls @ 2 mls/min IV QAM [facility] Stop: 11/22/20 08:59 Last Admin: 10/23/20 09:00 Dose: 2 mls/min Documented by: [id number] Folic Acid 1 mg/ Syringe 10 mls @ 5 mls/min IV QAM [facility] Stop: 11/22/20 08:59 Last Admin: 10/23/20 08:36 Dose: 5 mls/min Documented by: [id number] Doxycycline Hyclate 100 mg/ (Dextrose) 110 mls @ 50 mls/hr IV Q12H [facility] Stop: 10/30/20 08:59 Last Infusion: 10/23/20 10:43 Dose: 0 mls/hr Documented by: [id number] Admin: 10/23/20 08:31 Dose: 50 mls/hr Documented by: [id number] Furosemide 40 mg/ Syringe 4 mls @ 4 mls/min IV DAILY [facility] Stop: 11/22/20 08:59 Last Admin: 10/23/20 08:36 Dose: 4 mls/min Documented by: [id number] Metoprolol Tartrate (Metoprolol Tartrate 25 Mg Tab) 12.5 mg PO BID [place] Stop: 11/22/20 08:59 Last Admin: 10/23/20 08:33 Dose: 12.5 mg Documented by: [id number] Pantoprazole Sodium (Pantoprazole 40 Mg Tab) 40 mg PO DAILY [place] Stop: 11/22/20 08:59 Last Admin: 10/23/20 08:37 Dose: 40 mg Documented by: [id number] Paroxetine HCl (Paroxetine Hcl 20 Mg Tab) 40 mg PO DAILY [place] Stop: 11/22/20 08:59 Last Admin: 10/23/20 08:32 Dose: 40 mg Documented by: [id number] Discontinued Medications Aspirin (Aspirin 81 Mg Chew) 324 mg PO NOW STA Stop: 10/22/20 23:06 Last Admin: 10/22/20 23:38 Dose: 324 mg Documented by: [id number] Doxycycline Hyclate (Doxycycline Hyclate 100 Mg Cap) 100 mg PO NOW STA Stop: 10/22/20 23:06 Last Admin: 10/22/20 23:40 Dose: 100 mg Documented by: [id number] Furosemide (Furosemide 40 Mg/4 Ml Vial) 40 mg IV NOW STA Stop: 10/22/20 23:06 Last Admin: 10/22/20 23:38 Dose: 40 mg Documented by: [id number] Gabapentin (Gabapentin 600 Mg Tab) 1,200 mg PO NOW ONE Stop: 10/23/20 01:14 Last Admin: 10/23/20 02:27 Dose: 1,200 mg Documented by: [id number] Gabapentin (Gabapentin 600 Mg Tab) 600 mg PO Q6H [place] Stop: 10/23/20 14:01 Last Admin: 10/23/20 13:48 Dose: 600 mg Documented by: [id number] Admin: 10/23/20 08:35 Dose: 600 mg Documented by: [id number] Magnesium Sulfate/Dextrose (Magnesium Sulfate / D5w) 1 gm in 100 mls @ 200 mls/hr IV Q30M [facility] Stop: 10/23/20 00:05 Last Infusion: 10/23/20 00:59 Dose: 0 mls/hr Documented by: [id number] Admin: 10/23/20 00:29 Dose: 200 mls/hr Documented by: [id number] Infusion: 10/23/20 00:11 Dose: 200 mls/hr Documented by: [id number] Admin: 10/22/20 23:41 Dose: 200 mls/hr Documented by: [id number] Ceftriaxone Sodium (Rocephin) 2,000 mg in 70 mls @ 140 mls/hr IV NOW STA Stop: 10/22/20 23:34 Last Infusion: 10/23/20 01:10 Dose: 0 mls/hr Documented by: [id number] Admin: 10/23/20 00:42 Dose: 140 mls/hr Documented by: [id number] Potassium Chloride (K Jseus / Wtr) 10 meq in 100 mls @ 100 mls/hr IV Q1H [place] Stop: 10/23/20 11:29 Last Infusion: 10/23/20 13:36 Dose: 0 mls/hr Documented by: [id number] Admin: 10/23/20 12:36 Dose: 100 mls/hr Documented by: [id number] Infusion: 10/23/20 12:00 Dose: 0 mls/hr Documented by: [id number] Admin: 10/23/20 11:00 Dose: 100 mls/hr Documented by: [id number] Infusion: 10/23/20 11:00 Dose: 0 mls/hr Documented by: [id number] Admin: 10/23/20 10:00 Dose: 100 mls/hr Documented by: [id number] Magnesium Sulfate/Dextrose (Magnesium Sulfate / D5w) 1 gm in 100 mls @ 50 mls/hr IV TODAY@0830 ONE Stop: 10/23/20 10:29 Last Infusion: 10/23/20 12:00 Dose: 0 mls/hr Documented by: [id number] Admin: 10/23/20 10:00 Dose: 50 mls/hr Documented by: [id number] Ioversol (Optiray 320 125ml) 125 ml IV ONCE ONE Stop: 10/23/20 06:29 Last Admin: 10/23/20 06:28 Dose: 116 ml Documented by: [id number] Metoprolol Tartrate (Metoprolol Tartrate 1 Mg/Ml Vial) 5 mg IV NOW STA Stop: 10/23/20 00:30 Last Admin: 10/23/20 00:37 Dose: 5 mg Documented by: [id number] Metoprolol Tartrate (Metoprolol Tartrate 1 Mg/Ml Vial) 5 mg IV NOW STA Stop: 10/23/20 05:30 Last Admin: 10/23/20 05:38 Dose: 5 mg Documented by: [id number] Potassium Chloride (Potassium Chloride Crtab 20 Meq Tabcr) 40 meq PO NOW STA Stop: 10/23/20 08:26 Last Admin: 10/23/20 09:00 Dose: 40 meq Documented by: [id number] Medical Decision Making Differential Diagnosis Reactive airway disease, pneumonia, pneumothorax, COPD, CHF, infections, cardiac ischemia, pulmonary embolism, musculoskeletal, gastrointestinal, as well as other pathologies. Home Medications Current Medication List: was personally reviewed by me Laboratory Data Attestation: I reviewed the patient's lab results. Result diagrams: 10/23/20 05:26 10/23/20 16:10 Lab Results 10/22/20 10/22/20 10/22/20 Range/Units 21:15 21:15 22:00 WBC 11.41 H (4.8-10.8) K/uL RBC 3.83 L (4.7-6.1) M/uL Hgb 9.5 L (14.0-18.0) g/dL Hct 29.5 L (42-52) % MCV 77.0 L (80-100) fL MCH 24.8 L (25-34) pg MCHC 32.2 (32-36) g/dL RDW Std Deviation 47.4 H (36.4-46.3) fL RDW Coeff of Noam 16.9 H (11.5-14.5) % Plt Count 195 (130-400) K/uL MPV 10.0 (7.4-10.4) fL Immature Gran % (Auto) 0.4 % Neut % (Auto) 90.9 % Lymph % (Auto) 6.6 % Frontier % (Auto) 1.9 % Eos % (Auto) 0.0 % Baso % (Auto) 0.2 % Neut # (Auto) 10.38 H (1.4-6.5) K/uL Lymph # (Auto) 0.75 L (1.2-3.4) K/uL Frontier # (Auto) 0.22 (0.11-0.59) K/uL Eos # (Auto) 0.00 (0-0.5) K/uL Baso # (Auto) 0.02 (0-0.2) K/uL Immature Gran # (Auto) 0.04 H (0.00-0.02) K/uL Sodium 135 L (136-145) mmol/L Potassium 3.8 (3.5-5.1) mmol/L Chloride 102 (98-107) mmol/L Carbon Dioxide 24 (21-32) mmol/L Anion Gap 9.0 (3-11) BUN 11 (7-18) mg/dl Creatinine 1.32 (0.6-1.4) mg/dl Est Cr Clr Drug Dosing 85.4 ml/min Est GFR ( Amer) 66.1 Est GFR (Non-Af Amer) 57.0 BUN/Creatinine Ratio 8.5 L (10-20) Glucose 151 H (70-99) mg/dl Calcium 9.1 (8.5-10.1) mg/dl Magnesium 1.5 L (1.8-2.4) mg/dl Total Bilirubin 1.8 H (0.2-1) mg/dl AST 29 (15-37) U/L ALT 29 (12-78) U/L Alkaline Phosphatase 128 H (45-117) U/L Total Creatine Kinase 81 (39-308) U/L Troponin I 0.084 H* (0-0.045) ng/ml NT-Pro-B Natriuret Pep 3037 H (0-900) pg/ml Total Protein 7.6 (6.4-8.2) gm/dl Albumin 3.3 L (3.4-5.0) gm/dl Globulin 4.3 H (2.5-4.0) gm/dl Albumin/Globulin Ratio 0.8 L (0.9-2) Urine Color Urine Appearance (Clear) Urine pH (4.5-7.5) Ur Specific [place] (1.000-1.030) Urine Protein (Negative) Urine Glucose (UA) (Negative) Urine Ketones (Negative) Urine Blood (Negative) Urine Nitrite (Negative) Urine Bilirubin (Negative) Urine Urobilinogen (Negative) Ur Leukocyte Esterase (Negative) Urine WBC (Auto) (0-5) /hpf Urine RBC (Auto) (0-4) /hpf U Hyaline Cast (Auto) (0-5) /lpf U Epithel Cells (Auto) (0-5) /lpf Urine Bacteria (Auto) (Negative) COVID-19 Eval Order CovFluRsv at [facility] SARS-CoV-2 (PCR) (Negative) Influenza Type A (PCR) (Neg) Influenza Type B (PCR) (Neg) RSV (RT-PCR) (Neg) 10/22/20 10/22/20 Range/Units 22:00 23:44 WBC (4.8-10.8) K/uL RBC (4.7-6.1) M/uL Hgb (14.0-18.0) g/dL Hct (42-52) % MCV (80-100) fL MCH (25-34) pg MCHC (32-36) g/dL RDW Std Deviation (36.4-46.3) fL RDW Coeff of Noam (11.5-14.5) % Plt Count (130-400) K/uL MPV (7.4-10.4) fL Immature Gran % (Auto) % Neut % (Auto) % Lymph % (Auto) % Frontier % (Auto) % Eos % (Auto) % Baso % (Auto) % Neut # (Auto) (1.4-6.5) K/uL Lymph # (Auto) (1.2-3.4) K/uL Frontier # (Auto) (0.11-0.59) K/uL Eos # (Auto) (0-0.5) K/uL Baso # (Auto) (0-0.2) K/uL Immature Gran # (Auto) (0.00-0.02) K/uL Sodium (136-145) mmol/L Potassium (3.5-5.1) mmol/L Chloride (98-107) mmol/L Carbon Dioxide (21-32) mmol/L Anion Gap (3-11) BUN (7-18) mg/dl Creatinine (0.6-1.4) mg/dl Est Cr Clr Drug Dosing ml/min Est GFR ( Amer) Est GFR (Non-Af Amer) BUN/Creatinine Ratio (10-20) Glucose (70-99) mg/dl Calcium (8.5-10.1) mg/dl Magnesium (1.8-2.4) mg/dl Total Bilirubin (0.2-1) mg/dl AST (15-37) U/L ALT (12-78) U/L Alkaline Phosphatase (45-117) U/L Total Creatine Kinase (39-308) U/L Troponin I (0-0.045) ng/ml NT-Pro-B Natriuret Pep (0-900) pg/ml Total Protein (6.4-8.2) gm/dl Albumin (3.4-5.0) gm/dl Globulin (2.5-4.0) gm/dl Albumin/Globulin Ratio (0.9-2) Urine Color [place] Urine Appearance Clear (Clear) Urine pH 6.5 (4.5-7.5) Ur Specific [place] 1.015 (1.000-1.030) Urine Protein 2+ H (Negative) Urine Glucose (UA) Negative (Negative) Urine Ketones Negative (Negative) Urine Blood 2+ H (Negative) Urine Nitrite Negative (Negative) Urine Bilirubin Negative (Negative) Urine Urobilinogen Positive H (Negative) Ur Leukocyte Esterase Negative (Negative) Urine WBC (Auto) 1-5 (0-5) /hpf Urine RBC (Auto) 5-10 H (0-4) /hpf U Hyaline Cast (Auto) 0 (0-5) /lpf U Epithel Cells (Auto) 20-30 H (0-5) /lpf Urine Bacteria (Auto) Negative (Negative) COVID-19 Eval Order SARS-CoV-2 (PCR) NEGATIVE (Negative) Influenza Type A (PCR) Negative (Neg) Influenza Type B (PCR) Negative (Neg) RSV (RT-PCR) Negative (Neg) Imaging Data Attestation: I personally reviewed and interpreted this imaging study as follows: My Impression: CHEST 1 VIEW: Mild fluid overload, possible superimposed infectious process. ECG Data Attestation: I personally reviewed and interpreted this ECG as follows: Indication: + SOB/dyspnea Rate (beats per minute): 124 Rhythm: + sinus tachycardia ECG Intervals/blocks: + Normal QRS ECG ST segments: + Nonspecific ST abnormalities Change: no significant change MDM Narrative Continuous chairman & chief executive officer: Order was placed for continuous chairman & chief executive officer. Patient was placed on the chairman & chief executive officer. Patient was noted to be in sinus tachycardia at an initial rate of 125 bpm. The patient is a 65-year-old male who presents today complaining of shortness of breath and weakness. Patient had a recent admission here. On exam today, he appears tachypneic and is tachycardic. His chest x-ray appears to show some evidence of heart failure, patient does have a known history of diastolic dysfunction. His BNP is elevated. Troponin is also elevated. Patient has gained about 5 kg in the past 2 weeks since his recent admission. He was given 40 mg IV Lasix. Patient does have an elevated leukocytosis which is new from his last visit, given symptoms of chills and possible superimposed infectious process on chest x-ray, he will be covered with antibiotics as well. He was given IV Rocephin and oral doxycycline. Patient found to be hypomagnesemic, given 2 g IV magnesium repletion. COVID-19 test was performed and was negative. Patient placed on 3 L of oxygen via nasal cannula in the ER. He tolerated this well. There may also be an element of alcohol withdrawal contributing to his tachycardia, as he has not had anything to drink in a few days due to weakness. [facility] who agreed to evaluate the patient for further care. Impression & Plan Shortness of breath, Weakness, CHF (congestive heart failure), Hypomagnesemia Discharge Plan Visit Data Chief Complaint: Illness Stated Complaint: SOB, WEAKNESS ED Provider: Augustine Sanchez ED Midlevel Provider: Marisela Fraga Discharge Problem: Shortness of breath, Weakness, CHF (congestive heart failure), Hypomagnesemia Patient Disposition: Admitted As Inpatient Discharge Instructions Interventions: ED Discharge Assessment Last Done: 10/23/20 01:05
[2020-10-23 07:03] LABS: BUN Creatinine Ratio 9.9 (10-20); Calcium 8.8 mg/dl (8.5-10.1); Creatinine Clr Calc Pharmacy 79.7 ml/min; Est GFR (African American) 62.1; Est GFR (Non-African American) 53.6; Magnesium 1.8 mg/dl (1.8-2.4); Potassium 2.8 mmol/L (3.5-5.1); Troponin I 0.231 ng/ml (0-0.045)
--- NOTE | 2020-10-23 07:14 | Ultrasound Report ---
BILATERAL LOWER EXTREMITY VENOUS DOPPLER HISTORY: Acute pain and swelling of the lower legs lower ext swollen, warm, dvt? COMPARISON STUDY: Duplex venous Doppler study 04/15/2020 FINDINGS: There is normal compressibility, flow, and augmentation within the bilateral lower extremit y deep venous systems. Enlarged lymph node of the right inguinal chain are noted measuring up to 3.7 x 2.0 x 3.5 cm. Enlarged lymph nodes of the left inguinal chain are noted measuring up to 3.2 x 3.1 x 1.4 cm. Several lymph nodes demonstrate thickened cortices. Subcutaneous edema of the lower extremit ies. Collection of the left popliteal fossa measures 3.6 x 4.8 x 1.5 cm suggestive of a probable Bake r's cyst. Limited study secondary to patient body habitus. IMPRESSION: 1. No sonographic evidence of deep venous thrombosis within the right or left lower extremity. 2. Nonspecific bilateral inguinal chain adenopathy. 3. Small left Kaplan's cyst. ACT 112: Negative or not required by law. Electronically signed by: Kian Augustine M.D. 10/23/2020 7:13 AM
--- NOTE | 2020-10-23 07:33 | CT Scan Report ---
CT angio chest PE protocol CT DOSE: 1938.11 mGy.cm HISTORY: 65 years-old Male with PE. Acute chest pain with shortness of breath TECHNIQUE: Multiple CTA images of the chest were obtained after the intravenous administration of 116 ml Optiray 320. Coronal and sagittal MIPS were obtained from the axial data set and were submitted for review. All measurements were obtained according to NASCET criteria. A dose lowering technique w as utilized adhering to the principles of ALARA. COMPARISON: CTA chest 10/08/2020 FINDINGS: CTA: Cardiomegaly with extensive coronary artery calcifications. Trace pericardial effusion. No thoracic a ortic aneurysm or dissection. Dilated pulmonary artery. Segmental and subsegmental branches are not w ell visualized in the lung bases secondary to contrast bolus timing and respiratory motion artifact. No filling defects identified. CT CHEST: Unremarkable thyroid. Prominent and mildly enlarged mediastinal and axillary chain lymph nodes are re demonstrated. Decreased size of the index right upper axillary chain lymph node now measuring 3.4 x 1 .0 cm, previously 3.2 x 1.3 cm. There is an index 1.8 cm prevascular lymph node on image 212 series 7 which is unchanged. No new or progressive adenopathy. Trace left and small right pleural effusions. There is no pneumothorax. Dependent right greater than left bibasilar opacities. No overt pulmonary e myrna. Central airways are patent. No acute process of the imaged upper abdomen. Hepatic steatosis. Mild gynecomastia. Degenerative elizabeth ges of the shoulders and spine. IMPRESSION: 1. Cardiomegaly without evidence of pulmonary emboli. 2. Trace left and small right pleural effusions. 3. Asymmetric right lung base opacities suggest atelectasis versus pneumonitis. 4. Probable pulmonary artery hypertension. 5. Extensive coronary artery calcifications. ACT 112: Negative or not required by law. The above report was generated using voice recognition software. It may contain grammatical, syntax o r spelling errors. Electronically signed by: Kian Augustine M.D. 10/23/2020 7:32 AM
--- NOTE | 2020-10-23 07:42 | XRay Report ---
SINGLE VIEW CHEST CLINICAL HISTORY: Generalized weakness. Dyspnea. FINDINGS: An AP, portable, upright chest radiograph is compared to study dated 04/14/2020. Correlation is made with chest CT dated 10/06/2016. The examination is degraded by portable technique, large body habitus, and apical lordotic positioning. The heart is enlarged. There is prominence of the pulmonar y vasculature. Airspace consolidation is seen at the right lung base. No large pleural effusion or pn eumothorax is seen. The skeletal structures are osteopenic. The bony thorax is grossly intact. IMPRESSION: 1. Cardiomegaly with prominence of the pulmonary vasculature. Correlate clinically for evidence of mi ld congestive change. 2. Airspace consolidation is seen in the right lung base. Correlate clinically for evidence of pneumo bryan/aspiration pneumonitis. Radiographic follow-up to resolution is recommended. ACT 112: Negative or not required by law. Electronically signed by: George Fofana M.D. 10/23/2020 7:40 AM
[2020-10-23] MEDS ORDERED: POTASSIUM CHLORIDE CRTAB 20 MEQ TABCR PO STA (08:25)
[2020-10-23] MEDS ORDERED: MAGNESIUM SULFATE / D5W 1 GM/100 ML BAG IV ONE (08:30)
[2020-10-23] MEDS: DOXYCYCLINE HYCLATE 100 MG in DEXTROSE 5% 100 ML IV SCH ×2 (08:31→21:33)
[2020-10-23] MEDS: PARoxetine HCL 20 MG TAB PO SCH (08:32)
[2020-10-23] MEDS: METOPROLOL TARTRATE 25 MG TAB PO SCH ×2 (08:33→21:34)
[2020-10-23] MEDS: FERROUS SULFATE 325 MG TAB PO SCH (08:35)
[2020-10-23] MEDS: GABAPENTIN 600 MG TAB PO SCH ×3 (08:35→21:36)
[2020-10-23] MEDS: FUROSEMIDE 40 MG in SYRINGE 0 ML IV SCH (08:36)
[2020-10-23] MEDS: FOLIC ACID 1 MG in SYRINGE 9.8 ML IV SCH (08:36)
[2020-10-23] MEDS: PANTOprazole 40 MG TAB PO SCH (08:37)
[2020-10-23] MEDS ORDERED: FUROSEMIDE 40 MG/4 ML VIAL IV SCH (09:00)
[2020-10-23] MEDS: THIAMINE HCL 100 MG in SYRINGE 9 ML IV SCH (09:00)
[2020-10-23 09:52] LABS: Base Excess ABG -2.7 mEq/L (-9-1.8); HCO3 ABG 21 mmol/L (19-24); Oxygen Saturation ABG 99.2 % (90-95); PCO2 ABG 30 mmHg (35-46); PO2 ABG 147 mmHg (80-95); pH ABG 7.46 (7.35-7.45)
[2020-10-23 09:53] LABS: Allen Test Pos (Pos)
[2020-10-23] MEDS: POTASSIUM CHLORIDE / WTR 10 MEQ/100 ML PLCT IV SCH ×3 (10:00→12:36)
--- NOTE | 2020-10-23 11:35 | Cardiology Consultation ---
Date of Consultation October 23, 2020 Assessment & Plan (1) Pneumonia: (2) Acute diastolic (congestive) heart failure: (3) Atrial flutter with rapid ventricular response: (4) Elevated troponin: (5) Anemia: (6) Hypokalemia: (7) Alcohol abuse: Complex 65-year-old patient admitted with fever, hypoxia, cough and radiographic evidence of right lower lobe pneumonia. Mild volume overload, diastolic heart failure present, however, improved with intravenous diuresis. Continue Lasix 40 mg IV daily. Replace potassium as indicated. Follow daily weight, fluid balance, GFR, and electrolytes. Alcohol withdrawal protocol and antibiotics as per internal medicine. Blood cultures pending. Atrial flutter present on ECGs dating back to 2015. Patient not chronically anticoagulated due to alcoholism, fall risk, and recurrent lower extremity bleeding related to varicosities requiring transfusion. Heart rate control reasonable at this time with beta-reji therapy. Continue oral metoprolol 12.5 mg twice daily. Consider titration during hospitalization pending clinical course. Monitor telemetry. Thank you for allow me to participate in the care of your patient. History of Present Illness Reason for Consultation: CHF Requesting Physician: Dr. Palm Attending Physician: Pal Obrien MD History of Present Illness 65-year-old patient presented to the emergency department with 3 days of ongoing/progressive shortness of breath. Notes cough with minimally productive sputum. Febrile since admission. X-ray demonstrating right lower lobe infiltrate. Cardiology consultation requested for further evaluation of congestive heart failure. Carries a history of persistent likely chronic atrial flutter dating back to 2015. Evaluated by cardiology in the past and deemed not a candidate for long-term anticoagulation due to fall risk, noncompliance, alcoh olism, and recurrent lower extremity bleeding associated with varicosities. Currently resting comfortably on supplemental oxygen. Reports subjective chills and diaphoresis. Treated with antibiotics and intravenous furosemide on admission. Fluid balance negative approximately 2 L. Renal function remained stable with significant hypokalemia this a.m. Mildly elevated troponin noted. Patient denies chest discomfort or heaviness. No palpitations, lightheadedness, or dizziness. Denies orthopnea or PND. Chronic lower extremity edema unchanged. Offers no other concerns/complaints at this time. Admits to daily excessive alcohol intake. Last drink approximately 3 days ago. Allergies Allergy/AdvReac Type Severity Reaction Status Date / Time No Known Allergies Allergy Verified 10/22/20 23:24 Home Medications Medication Instructions Recorded Confirmed Type paroxetine HCl [Paxil] 40 mg PO DAILY 04/15/20 10/22/20 History ferrous sulfate 325 mg PO QAM #30 tab 10/09/20 10/22/20 Rx metoprolol tartrate 12.5 mg PO BID 30 Days #30 tab 10/09/20 10/22/20 Rx omeprazole 20 mg PO DAILY #30 cap 10/09/20 10/22/20 Rx Patient History Medical History Alcohol abuse Anemia Atrial flutter with rapid ventricular response BPH (benign prostatic hypertrophy) Depression Depression Diabetes mellitus type 2 in obese Gout History of cholesteatoma s/p radical mastoid 1991 [facility] HTN (hypertension) Hyperlipidemia Obesity (BMI 30-39.9) LAUREN on CPAP Paroxysmal atrial flutter Unspecified asthma Surgical History History of tympanoplasty S/P colonoscopy last 2016 hyperplastic polyp S/P tonsillectomy Status post surgical manipulation of ankle joint "L ankle fusion " Family History Father , 40s Myocardial infarction Social History Smoking Status: Never smoker Number of Years Since Quit: 30; Second Hand Exposure: No; Hx Alcohol Use: Yes Alcohol type: beer Alcohol Intake Frequency Comment: daily - 6 betsey beers, last drink 10/07 Hx Substance Use: No Preferred Language: Greek Communication Ability: Effective Bsw Required: No Beliefs That Will Affect Care: None Current Living Situation: Alone Feels Safe at Home: Yes Safety Concerns: Feels Safe At This Time Assistive Devices: None Review of Systems Review of Systems: All systems reviewed & are unremarkable except as noted in Subjective Physical Exam Constitutional: + ill appearing, + morbidly obese and + disheveled; no acute distress Respiratory: + tachypneic Auscultation: + crackles (Right base); no rhonchi and no wheezes Cardiovascular: Rate/Rhythm: regular rate, regular rhythm and + tachycardic Heart Sounds: normal S1 and normal S2; no murmur Vessels: radial pulses present; no JVD (Difficult to assess due to body habitus) and no carotid bruit Extremities: + edema (1+ bilateral lower extremity edema with stasis changes and varicosities.) Gastrointestinal (Abdomen): Inspection/Auscultation: abdomen normal to inspection and normal bowel sounds; abdomen not distended Percussion/Palpation: abdomen soft; abdomen nontender, no guarding and abdomen not rigid Neurologic: moves all extremities; no focal motor deficits Motor/Sensory: no tremor Results & Data ([facility]) Vital Signs (Past 12 Hours) Vital Signs Temp Pulse Pulse Resp BP BP Pulse Ox 10/23/20 11:07 37.3 C 80 18 112/73 100 10/23/20 08:00 79 10/23/20 05:55 72 10/23/20 05:38 108 H 145/80 H 10/23/20 05:11 37.8 C H 10/23/20 03:51 39.4 C H 120 H 32 H 148/84 H 97 10/23/20 02:11 120 H 28 H 96 10/23/20 01:34 120 H 10/23/20 01:25 36.7 C 120 H 23 144/83 H 98 10/23/20 01:13 10/23/20 00:47 106 H 30 H 118/77 98 10/23/20 00:37 122 H 182/96 H 10/23/20 00:31 122 H 30 H 93 10/23/20 00:30 122 H 27 H 182/96 H 96 10/23/20 00:01 122 H 24 96 10/23/20 00:00 122 H 26 H 173/105 H 95 10/22/20 23:31 123 H 25 H 97 10/22/20 23:30 123 H 27 H 177/100 H 96 Pulse Ox 10/23/20 11:07 10/23/20 08:00 100 10/23/20 05:55 10/23/20 05:38 10/23/20 05:11 10/23/20 03:51 10/23/20 02:11 10/23/20 01:34 10/23/20 01:25 10/23/20 01:13 98 10/23/20 00:47 10/23/20 00:37 10/23/20 00:31 10/23/20 00:30 10/23/20 00:01 10/23/20 00:00 10/22/20 23:31 10/22/20 23:30 (1) Anemia Anemia type: iron deficiency Iron deficiency anemia type: chronic blood loss Qualified Code(s): D50.0 - Iron deficiency anemia secondary to blood loss (chronic) (2) Pneumonia Laterality: right Lung location: lower lobe of lung Pneumonia type: due to unspecified organism Qualified Code(s): J18.9 - Pneumonia, unspecified organism
--- NOTE | 2020-10-23 13:51 | CT Scan Report ---
CT foot RT w con HISTORY: Right foot swelling. Assess for osteomyelitis. TECHNIQUE: Multiaxial CT images of the right foot were performed following the intravenous administra tion of 118 cc of Optiray 320. COMPARISON STUDY: None. FINDINGS: No fracture or dislocation within the right foot. No cortical destruction or erosive change to suggest an osteomyelitis. There is subcutaneous edema seen within the ankle and foot. This most p ronounced within the dorsum of the foot. Near complete fatty atrophy of the muscles of the right foot . No loculated fluid collections to suggest an abscess. There is suggestion of a focal skin ulceratio n medial to the first MTP joint. This measures approximately 1.3 cm. There is associated soft tissue swelling at this location. There is an adjacent bony bunion. Moderate osteoarthritis at the first MTP joint. Mild degenerative changes within the DIP, PIP, and intertarsal joints. There is a tiny planta r heel spur. IMPRESSION: 1. No CT evidence for osteomyelitis. 2. Focal skin ulceration medial to the first MTP joint with associated soft tissue swelling. 3. Eavb-ms-fjvrmgor osteoarthritis. 4. Subcutaneous edema most pronounced within the dorsum of the foot. No loculated fluid collections t o suggest an abscess. ACT 112: Negative or not required by law. Electronically signed by: Kirk Watkins M.D. 10/23/2020 1:49 PM
--- NOTE | 2020-10-23 15:09 | Hospitalist Progress Note ---
Date of Service October 23, 2020 Assessment & Plan Admission and Anticipated Discharge Date Admission Date: October 23, 2020 Subjective Pt seen and examined in room 239. Pt febrile this AM and started on IV Abx in ED for pneumonia and poss. cellulitis. Pt is tachypneic on my exam, using oxymask. + crackles on lung exam. Wound on Right foot. Procalcitonin, ESR, CRP ordered. CT foot ordered to r/o osteo. Wound care nurse consulted. Cont. Abx. Trop. elevated, CHF exacerb, hx of Aflutter, appreciate cardiology input. Results & Data Results & Data ([facility]) Vital Signs (Past 12 Hours) Vital Signs Temp Pulse Pulse Resp BP BP Pulse Ox 10/23/20 14:41 37.0 C 84 18 109/76 98 10/23/20 11:07 37.3 C 80 18 112/73 100 10/23/20 08:00 79 10/23/20 05:55 72 10/23/20 05:38 108 H 145/80 H 10/23/20 05:11 37.8 C H 10/23/20 03:51 39.4 C H 120 H 32 H 148/84 H 97 Pulse Ox 10/23/20 14:41 10/23/20 11:07 10/23/20 08:00 100 10/23/20 05:55 10/23/20 05:38 10/23/20 05:11 10/23/20 03:51
[2020-10-23 16:42] LABS: BUN Creatinine Ratio 12.6 (10-20); Calcium 8.4 mg/dl (8.5-10.1); Creatinine Clr Calc Pharmacy 66.3 ml/min; Est GFR (African American) 49.7; Est GFR (Non-African American) 42.9; Magnesium 2.2 mg/dl (1.8-2.4); Potassium 3.8 mmol/L (3.5-5.1)
[2020-10-23 18:10] LABS: Base Excess ABG -2.6 mEq/L (-9-1.8); HCO3 ABG 20 mmol/L (19-24); Oxygen Saturation ABG 95.9 % (90-95); PCO2 ABG 29 mmHg (35-46); PO2 ABG 74 mmHg (80-95); pH ABG 7.47 (7.35-7.45)
[2020-10-23 18:11] LABS: Allen Test Pos (Pos)
--- NOTE | 2020-10-23 18:18 | XRay Report ---
XR chest 1V portable HISTORY: dyspnea COMPARISON: Chest 10/22/2020. FINDINGS: There are low lung volumes. The cardiac silhouette remains moderately enlarged. No evidence for pulmonary edema. No new focal lung consolidations. No pleural effusions. No pneumothorax. IMPRESSION: Stable cardiomegaly. ACT 112: Negative or not required by law. Electronically signed by: Kirk Watkins M.D. 10/23/2020 6:16 PM
[2020-10-23] MEDS ORDERED: LORazepam 0.5 MG/1 ML VIAL IV ONE (18:27)
[2020-10-23] MEDS ORDERED: PIPERACILL/TAZOBAC CONSULT ACTIVE PRN (18:27)
[2020-10-23] MEDS ORDERED: metroNIDAZOLE 500 MG/100 ML BAG IV SCH (19:00)
[2020-10-23] MEDS ORDERED: PIPERACILLIN/TAZOBACTAM 4.5 GM in DEXTROSE 5% 100 ML IV ONE (19:00)
[2020-10-23] MEDS ORDERED: cefTRIAXone SODIUM 2,000 MG in DEXTROSE 5% 50 ML IV SCH (21:00)
[2020-10-23] MEDS: guaiFENesin 600 MG TABCR PO SCH (21:34)
[2020-10-24] MEDS: PIPERACILLIN/TAZOBACTAM 4.5 GM in DEXTROSE 5% 100 ML IV SCH ×3 (00:17→16:04)
--- NOTE | 2020-10-24 05:39 | Electrocardiogram Report ---
Test Reason : Blood Pressure : / mmHG Vent. Rate : 124 BPM Atrial Rate : 124 BPM P-R Int : 160 ms QRS Dur : 090 ms QT Int : 304 ms P-R-T Axes : 000 076 219 degrees QTc Int : 436 ms Probable Atrial flutter with 2:1 A-V conduction Abnormal ECG When compared with ECG of 08-OCT-2020 04:55, No significant change Confirmed by Wyatt Solomon ([id number]) on 10/24/2020 5:38:44 AM Referred By: REFERRED SELF Confirmed By:Wyatt Solomon
[2020-10-24] MEDS: GABAPENTIN 600 MG TAB PO SCH ×2 (06:04→13:05)
--- NOTE | 2020-10-24 06:09 | Electrocardiogram Report ---
Test Reason : Blood Pressure : / mmHG Vent. Rate : 080 BPM Atrial Rate : 080 BPM P-R Int : 162 ms QRS Dur : 088 ms QT Int : 402 ms P-R-T Axes : 000 075 181 degrees QTc Int : 463 ms Atrial flutter with variable A-V block Abnormal ECG When compared with ECG of 22-OCT-2020 21:08, Vent. rate has decreased BY 44 BPM Confirmed by Wyatt Solomon ([id number]) on 10/24/2020 6:09:08 AM Referred By: REFERRED SELF Confirmed By:Wyatt Solomon
[2020-10-24 07:01] LABS: Hematocrit (blood only) 28.6 % (42-52); Hemoglobin 9.1 g/dL (14.0-18.0); Mean Corpuscular Hemoglobin 24.3 pg (25-34); Mean Corpuscular Hgb Conc 31.8 g/dL (32-36); Mean Corpuscular Volume 76.5 fL (80-100); Mean Platelet Volume 10.1 fL (7.4-10.4); Platelet Count 134 K/uL (130-400); RDW Coefficient of Variation 16.9 % (11.5-14.5); RDW Standard Deviation 47.2 fL (36.4-46.3); Red Blood Count 3.74 M/uL (4.7-6.1); White Blood Count 9.36 K/uL (4.8-10.8)
[2020-10-24 07:22] LABS: BUN Creatinine Ratio 18.6 (10-20); Calcium 8.4 mg/dl (8.5-10.1); Creatinine Clr Calc Pharmacy 59.6 ml/min; Est GFR (African American) 47.6; Est GFR (Non-African American) 41.1; Magnesium 2.2 mg/dl (1.8-2.4); Potassium 3.6 mmol/L (3.5-5.1)
[2020-10-24 07:23] LABS: Phosphorus 4.2 mg/dl (2.5-4.9)
--- NOTE | 2020-10-24 08:17 | Hospitalist Progress Note ---
Date of Service October 24, 2020 Assessment & Plan (1) Shortness of breath: (2) Weakness: (3) Acute diastolic (congestive) heart failure: (4) Pneumonia: (5) Hypokalemia: (6) CHF (congestive heart failure): This is a 65-year-old male who presents with shortness of breath. 1. Shortness of breath most likely acute on chronic diastolic congestive heart failure and also right sided heart failure and CAP. CXR c/w with cardiomegaly pulm. congestion and airspace consolidation in R lung base Elevated troponin on admission, secondary to above Last echo 10/08/2020 -LV is normal in size. EF 60 to 65%. RV is moderately dilated. RV systolic function is moderately reduced. LA is moderately dilated. RA is moderately dilated. There is mild mitral regurg. Pulmonary hypertension is suspected and the estimated pulmonary artery systolic pressure is between 55 and 60 mmHg. ER gave one dose of iv Lasix 40mg. Continue with IV 40mg Lasix daily, will now put on hold d/t Cr elev. Cont. PO metoprolol. Follow daily weights, I's and O's, monitor in the tele floor. Cardiology consulted, appreciate their input CT chest - negative for PE. 2. Tachycardia, most likely 2/2 CHF, PNA and alcohol withdrawal. The patient was also on high dose of Lopressor in the past. Currently on 12.5 b.i.d. Continued the 12.[address] him on IV Lopressor p.r.n. Will increase to 25 BID Monitor the heart rates and adjust medications and await cardiac input. 3. CAP - CXR c/w Airspace consolidation is seen in the right lung base - procalcitonin elevated - pt started on Rocephin and doxy on admission - switched to zosyn last evening for concern of poss. aspiration 4. Lower extremity Cellulitis? open wound on right foot. Obtained doppler - negative for DVT Obtained CT foot - negative for osteomyelitis ESR, CRP elevated Blood cultx - pending Wound care consulted Cont. Abx as above 5. Alcoholism, alcohol withdrawal with tachycardia and hypertension. We willcontinue with gabapentin protocol and also IV Ativan p.r.n. Continue with IV thiamine, IV folic acid. Closely monitor for withdrawal. 6 Anemia. Hemoglobin is stable at 9.5, on iron supplements. We will continue. Recent hx of venous ulcer bleed. 7. Hypertension Previously was on lisinopril 20 mg and metoprolol tartrate 50 mg b.i.d. On last admission, he was discharged on metoprolol 12.5 mg b.i.d. (pt was not on any medications prior to recent admission d/t lack of insurance) Continued PO metoprolol, will increase to [address] him on IV Lopressor. Monitor blood pressure. 8. Diabetes. Last HbA1c was 5.7. We will monitor the blood sugar. 9. Obstructive sleep apnea, on CPAP at bedtime. 10. Psoriasis. Previously on Humira. Needs followup. 11. History of paroxysmal atrial flutter. We will monitor. Await cardiac input. 12. Hypomagnesemia, replaced in the ER.Follow labs DVT prophylaxis, hold heparin for now given recent bleed (from venous ulcer) Admission and Anticipated Discharge Date Admission Date: October 23, 2020 Subjective Pt seen in follow up of pneumonia and poss. cellulitis, elevated troponin, CHF exacerbation, aflutter. Yesterday pt was very tachypneic, seems improved now, ate breakfast. He reports still feeling shortness of breath, also reports progressive shortness of breath over some time. procal elevated, ESR, CRP elev. CT of foot obtaibed, does not show osteo Cr now increased and BUN, IV lasix put on hold, increased metoprolol to 25 BID, appreciate cardiology input Review of Systems Review of Systems: All systems reviewed & are unremarkable except as noted in HPI & below Constitutional: + fatigue and + weakness (generalized); no fever and no chills Respiratory: + cough and + dyspnea Cardiovascular: + edema; no chest pain Gastrointestinal: no abdominal pain, no nausea and no vomiting Physical Exam Physical Exam: GENERAL: obese male, not in acute distress, on suppl. O2 via NC HEENT: NC/AT, Pupils equal, round, reactive to light. Oral mucosa somewhat dry. NECK: No JVD, no neck masses seen. CARDIOVASCULAR: S1, S2 heard. mild tachycardia. No murmurs. RESPIRATORY SYSTEM: Normal AP diameter. No accessory muscle use. No wheezing. Mild bibasilar crackles. ABDOMEN: Soft, bowel sounds present, nontender, nondistended. CENTRAL NERVOUS SYSTEM: Alert and oriented. Speech clear, no facial droop. Moves extremities. EXTREMITIES: Bilateral lower extremity chronic skin changes c/w venous stasis, somewhat foul smelling and also some open cuts in the plantar aspect of the right foot near the big toe. No drainage seen. Results & Data Results & Data ([facility]) Vital Signs (Past 12 Hours) Vital Signs Temp Pulse Pulse Resp BP BP Pulse Ox 10/24/20 07:56 36.5 C 96 H 18 122/63 10/24/20 06:09 36.8 C 96 H 24 115/70 94 10/24/20 03:46 37.2 C 90 26 H 117/79 97 10/24/20 03:38 90 20 95 10/24/20 02:20 37.5 C 97 H 28 H 128/84 94 10/24/20 00:43 80 10/23/20 23:19 37 C 80 28 H 110/77 96 10/23/20 22:00 80 22 99 Laboratory Results 10/24/20 10/24/20 10/23/20 Range/Units 06:36 06:36 17:52 WBC 9.36 (4.8-10.8) K/uL RBC 3.74 L (4.7-6.1) M/uL Hgb 9.1 L (14.0-18.0) g/dL Hct 28.6 L (42-52) % MCV 76.5 L (80-100) fL MCH 24.3 L (25-34) pg MCHC 31.8 L (32-36) g/dL RDW Std Deviation 47.2 H (36.4-46.3) fL RDW Coeff of Noam 16.9 H (11.5-14.5) % Plt Count 134 (130-400) K/uL MPV 10.1 (7.4-10.4) fL ESR (0-14) mm/hr ABG pH 7.47 H (7.35-7.45) ABG pCO2 29 L (35-46) mmHg ABG pO2 74 L (80-95) mmHg ABG HCO3 20 (19-24) mmol/L ABG O2 Saturation 95.9 H (90-95) % ABG Base Excess -2.6 (-9-1.8) mEq/L Alex Test Pos (Pos) Barometric Pressure 728.9 mm/Hg Oxygen Given ROOM AIR Sodium 133 L (136-145) mmol/L Potassium 3.6 (3.5-5.1) mmol/L Chloride 100 (98-107) mmol/L Carbon Dioxide 23 (21-32) mmol/L Anion Gap 10.0 (3-11) BUN 32 H D (7-18) mg/dl Creatinine 1.73 H (0.6-1.4) mg/dl Est Cr Clr Drug Dosing 59.6 ml/min Est GFR ( Amer) 47.6 Est GFR (Non-Af Amer) 41.1 BUN/Creatinine Ratio 18.6 (10-20) Glucose 115 H (70-99) mg/dl Lactate (0.4-2.0) mmol/L Calcium 8.4 L (8.5-10.1) mg/dl Phosphorus 4.2 (2.5-4.9) mg/dl Magnesium 2.2 (1.8-2.4) mg/dl Troponin I (0-0.045) ng/ml C-Reactive Protein (0-0.29) mg/dl Procalcitonin (0-0.5) ng/ml 10/23/20 10/23/20 10/23/20 Range/Units 16:10 16:10 11:12 WBC (4.8-10.8) K/uL RBC (4.7-6.1) M/uL Hgb (14.0-18.0) g/dL Hct (42-52) % MCV (80-100) fL MCH (25-34) pg MCHC (32-36) g/dL RDW Std Deviation (36.4-46.3) fL RDW Coeff of Noam (11.5-14.5) % Plt Count (130-400) K/uL MPV (7.4-10.4) fL ESR (0-14) mm/hr ABG pH (7.35-7.45) ABG pCO2 (35-46) mmHg ABG pO2 (80-95) mmHg ABG HCO3 (19-24) mmol/L ABG O2 Saturation (90-95) % ABG Base Excess (-9-1.8) mEq/L Alex Test (Pos) Barometric Pressure mm/Hg Oxygen Given Sodium 133 L (136-145) mmol/L Potassium 3.8 D (3.5-5.1) mmol/L Chloride 100 (98-107) mmol/L Carbon Dioxide 24 (21-32) mmol/L Anion Gap 9.0 (3-11) BUN 21 H (7-18) mg/dl Creatinine 1.67 H (0.6-1.4) mg/dl Est Cr Clr Drug Dosing 66.3 ml/min Est GFR ( Amer) 49.7 Est GFR (Non-Af Amer) 42.9 BUN/Creatinine Ratio 12.6 (10-20) Glucose 117 H (70-99) mg/dl Lactate 1.9 (0.4-2.0) mmol/L Calcium 8.4 L (8.5-10.1) mg/dl Phosphorus (2.5-4.9) mg/dl Magnesium 2.2 (1.8-2.4) mg/dl Troponin I (0-0.045) ng/ml C-Reactive Protein (0-0.29) mg/dl Procalcitonin 3.66 H (0-0.5) ng/ml 10/23/20 10/23/20 10/23/20 Range/Units 10:46 10:46 10:46 WBC (4.8-10.8) K/uL RBC (4.7-6.1) M/uL Hgb (14.0-18.0) g/dL Hct (42-52) % MCV (80-100) fL MCH (25-34) pg MCHC (32-36) g/dL RDW Std Deviation (36.4-46.3) fL RDW Coeff of Noam (11.5-14.5) % Plt Count (130-400) K/uL MPV (7.4-10.4) fL ESR 33 H (0-14) mm/hr ABG pH (7.35-7.45) ABG pCO2 (35-46) mmHg ABG pO2 (80-95) mmHg ABG HCO3 (19-24) mmol/L ABG O2 Saturation (90-95) % ABG Base Excess (-9-1.8) mEq/L Alex Test (Pos) Barometric Pressure mm/Hg Oxygen Given Sodium (136-145) mmol/L Potassium (3.5-5.1) mmol/L Chloride (98-107) mmol/L Carbon Dioxide (21-32) mmol/L Anion Gap (3-11) BUN (7-18) mg/dl Creatinine (0.6-1.4) mg/dl Est Cr Clr Drug Dosing ml/min Est GFR ( Amer) Est GFR (Non-Af Amer) BUN/Creatinine Ratio (10-20) Glucose (70-99) mg/dl Lactate (0.4-2.0) mmol/L Calcium (8.5-10.1) mg/dl Phosphorus (2.5-4.9) mg/dl Magnesium (1.8-2.4) mg/dl Troponin I 0.271 H* (0-0.045) ng/ml C-Reactive Protein 9.87 H (0-0.29) mg/dl Procalcitonin (0-0.5) ng/ml 10/23/20 Range/Units 09:43 WBC (4.8-10.8) K/uL RBC (4.7-6.1) M/uL Hgb (14.0-18.0) g/dL Hct (42-52) % MCV (80-100) fL MCH (25-34) pg MCHC (32-36) g/dL RDW Std Deviation (36.4-46.3) fL RDW Coeff of Noam (11.5-14.5) % Plt Count (130-400) K/uL MPV (7.4-10.4) fL ESR (0-14) mm/hr ABG pH 7.46 H (7.35-7.45) ABG pCO2 30 L (35-46) mmHg ABG pO2 147 H (80-95) mmHg ABG HCO3 21 (19-24) mmol/L ABG O2 Saturation 99.2 H (90-95) % ABG Base Excess -2.7 (-9-1.8) mEq/L Alex Test Pos (Pos) Barometric Pressure 732.0 mm/Hg Oxygen Given 3L Sodium (136-145) mmol/L Potassium (3.5-5.1) mmol/L Chloride (98-107) mmol/L Carbon Dioxide (21-32) mmol/L Anion Gap (3-11) BUN (7-18) mg/dl Creatinine (0.6-1.4) mg/dl Est Cr Clr Drug Dosing ml/min Est GFR ( Amer) Est GFR (Non-Af Amer) BUN/Creatinine Ratio (10-20) Glucose (70-99) mg/dl Lactate (0.4-2.0) mmol/L Calcium (8.5-10.1) mg/dl Phosphorus (2.5-4.9) mg/dl Magnesium (1.8-2.4) mg/dl Troponin I (0-0.045) ng/ml C-Reactive Protein (0-0.29) mg/dl Procalcitonin (0-0.5) ng/ml Medications Administered Current Inpatient Medications Acetaminophen (Acetaminophen 325 Mg Tab) 650 mg PO Q4H PRN PRN Reason: Pain or Fever Stop: 11/22/20 01:12 Last Admin: 10/23/20 17:10 Dose: 650 mg Documented by: Ferrous Sulfate (Ferrous Sulfate 325 Mg Tab) [facility] Stop: 11/22/20 08:59 Last Admin: 10/23/20 08:35 Dose: 325 mg Documented by: Gabapentin (Gabapentin 600 Mg Tab) 600 mg PO Q8H [facility] Stop: 10/24/20 14:01 Last Admin: 10/24/20 06:04 Dose: 600 mg Documented by: Gabapentin (Gabapentin 600 Mg Tab) 600 mg PO Q12H [facility] Stop: 10/25/20 14:01 Gabapentin (Gabapentin 600 Mg Tab) 600 mg PO Q24H [facility] Stop: 10/26/20 14:01 Guaifenesin (Guaifenesin 600 Mg Tabcr) 600 mg PO Q12 [facility] Stop: 11/22/20 20:59 Last Admin: 10/23/20 21:34 Dose: 600 mg Documented by: Lorazepam (Ativan) 1 mg in 2 mls @ 2 mls/min IV UD PRN; Protocol PRN Reason: EtOH Withdrawl AWSS Score 6,7 Stop: 11/22/20 01:12 Thiamine HCl 100 mg/ Syringe 10 mls @ 2 mls/min IV QAM [facility] Stop: 11/22/20 08:59 Last Admin: 10/23/20 09:00 Dose: 2 mls/min Documented by: Folic Acid 1 mg/ Syringe 10 mls @ 5 mls/min IV QAM [facility] Stop: 11/22/20 08:59 Last Admin: 10/23/20 08:36 Dose: 5 mls/min Documented by: Lorazepam (Ativan) 2 mg in 4 mls @ 4 mls/min IV UD PRN; Protocol PRN Reason: EtOH Withdrawl AWSS Score 8,9 Stop: 11/22/20 01:12 Lorazepam (Ativan) 3 mg in 6 mls @ 4 mls/min IV ONCE PRN; Protocol PRN Reason: EtOH Withdrawl AWSS Score >=10 Stop: 11/22/20 01:12 Doxycycline Hyclate 100 mg/ (Dextrose) 110 mls @ 50 mls/hr IV Q12H [facility] Stop: 10/30/20 08:59 Last Infusion: 10/23/20 23:53 Dose: Infused Documented by: Furosemide 40 mg/ Syringe 4 mls @ 4 mls/min IV DAILY [facility] Stop: 11/22/20 08:59 Last Admin: 10/23/20 08:36 Dose: 4 mls/min Documented by: Piperacillin Sod/Tazobactam (Sod 4.5 gm/ Dextrose) 120 mls @ 30 mls/hr IV Q8H [place]; Protocol Stop: 10/31/20 00:00 Last Infusion: 10/24/20 04:23 Dose: Infused Documented by: Metoprolol Tartrate (Metoprolol Tartrate 25 Mg Tab) 12.5 mg PO BID [facility] Stop: 11/22/20 08:59 Last Admin: 10/23/20 21:34 Dose: 12.5 mg Documented by: Metoprolol Tartrate (Metoprolol Tartrate 1 Mg/Ml Vial) 5 mg IV Q6 PRN PRN Reason: Hypertension Stop: 11/22/20 01:12 Miscellaneous Information (Piperacill/Tazobac Consult Active) 1 ea N/A UD PRN PRN Reason: Consult Stop: 11/22/20 18:26 Nitroglycerin (Nitroglycerin Sl 0.4 Mg/Tab Tab) 0.4 mg SL UD PRN PRN Reason: Chest Pain Stop: 11/22/20 01:12 Pantoprazole Sodium (Pantoprazole 40 Mg Tab) 40 mg PO DAILY [facility] Stop: 11/22/20 08:59 Last Admin: 10/23/20 08:37 Dose: 40 mg Documented by: Paroxetine HCl (Paroxetine Hcl 20 Mg Tab) 40 mg PO DAILY [facility] Stop: 11/22/20 08:59 Last Admin: 10/23/20 08:32 Dose: 40 mg Documented by: Polyethylene Glycol (Polyethylene (Miralax) 17 Gm Pack) 17 gm PO DAILY PRN PRN Reason: Constipation Stop: 11/22/20 01:12 (1) Pneumonia Pneumonia type: due to unspecified organism Laterality: right Lung location: lower lobe of lung Qualified Code(s): J18.9 - Pneumonia, unspecified organism
[2020-10-24] MEDS: FERROUS SULFATE 325 MG TAB PO SCH (08:39)
[2020-10-24] MEDS: METOPROLOL TARTRATE 25 MG TAB PO SCH ×2 (08:39→21:00)
[2020-10-24] MEDS: PANTOprazole 40 MG TAB PO SCH (08:39)
[2020-10-24] MEDS: PARoxetine HCL 20 MG TAB PO SCH (08:39)
[2020-10-24] MEDS: guaiFENesin 600 MG TABCR PO SCH ×2 (08:40→21:00)
[2020-10-24] MEDS: FOLIC ACID 1 MG in SYRINGE 9.8 ML IV SCH (08:40)
[2020-10-24] MEDS: THIAMINE HCL 100 MG in SYRINGE 9 ML IV SCH (08:40)
[2020-10-24] MEDS: DOXYCYCLINE HYCLATE 100 MG in DEXTROSE 5% 100 ML IV SCH ×2 (08:41→21:00)
[2020-10-24] MEDS: POTASSIUM CHLORIDE / WTR 10 MEQ/100 ML PLCT IV SCH ×2 (08:49→10:00)
--- NOTE | 2020-10-24 12:58 | Cardiology Progress Note ---
Date of Service October 24, 2020 Assessment & Plan (1) Pneumonia: (2) Chronic diastolic heart failure: (3) Acute on chronic renal failure: (4) Atrial flutter with rapid ventricular response: (5) Elevated troponin: (6) Anemia: (7) Hypokalemia: (8) Alcohol abuse: Serum creatinine trending upward with diuretic therapy suggesting intravascular volume depletion. Recommend discontinuation of IV diuretic therapy. Repeat basic metabolic panel in a.m. Heart rate improved per review of telemetry. Continue low-dose beta-reji at this time. As previously noted, patient is not chronically anticoagulated due to alcoholism, fall risk, and recurrent lower extremity bleeding secondary to varicosities. Alcohol withdrawal protocol and antibiotics as per internal medicine. Blood cultures negative x24 hours. Antibiotic therapy as per internal medicine. Admission and Anticipated Discharge Date Admission Date: October 23, 2020 Subjective Patient seen and examined at the bedside. Respiratory status mildly improved. Fluid balance mildly positive. Serum creatinine trending upward. Hyponatremia unchanged. Telemetry demonstrates atrial fibrillation/flutter with heart rate ranging from 80-95 bpm. Patient denies palpitations or chest discomfort. Notes cough with minimal sputum production. No recurrent fevers overnight. Blood cultures without growth x24 hours. Review of Systems Review of Systems: All systems reviewed & are unremarkable except as noted in Subjective Physical Exam Constitutional: + ill appearing, + morbidly obese and + disheveled; no acute distress Respiratory: + tachypneic Auscultation: + crackles (Right base); no rhonchi and no wheezes Cardiovascular: Rate/Rhythm: regular rate, regular rhythm and + tachycardic Heart Sounds: normal S1 and normal S2; no murmur Vessels: radial pulses present; no JVD (Difficult to assess due to body habitus) and no carotid bruit Extremities: + edema (1+ bilateral lower extremity edema with stasis changes and varicosities.) Gastrointestinal (Abdomen): Inspection/Auscultation: abdomen normal to inspection and normal bowel sounds; abdomen not distended Percussion/Palpation: abdomen soft; abdomen nontender, no guarding and abdomen not rigid Neurologic: moves all extremities; no focal motor deficits Motor/Sensory: no tremor Results & Data ([facility]) Vital Signs (Past 12 Hours) Vital Signs Temp Pulse Pulse Resp BP Pulse Ox 10/24/20 12:02 36.8 C 83 22 104/77 94 10/24/20 09:00 94 10/24/20 07:56 36.5 C 96 H 18 122/63 10/24/20 06:09 36.8 C 96 H 24 115/70 94 10/24/20 03:46 37.2 C 90 26 H 117/79 97 10/24/20 03:38 90 20 95 10/24/20 02:20 37.5 C 97 H 28 H 128/84 94 (1) Pneumonia Pneumonia type: due to unspecified organism Laterality: right Lung location: lower lobe of lung Qualified Code(s): J18.9 - Pneumonia, unspecified organism (2) Anemia Anemia type: iron deficiency Iron deficiency anemia type: chronic blood loss Qualified Code(s): D50.0 - Iron deficiency anemia secondary to blood loss (chronic)
--- NOTE | 2020-10-24 13:38 | Electrocardiogram Report ---
Test Reason : Blood Pressure : / mmHG Vent. Rate : 089 BPM Atrial Rate : 117 BPM P-R Int : 000 ms QRS Dur : 090 ms QT Int : 364 ms P-R-T Axes : 000 082 216 degrees QTc Int : 442 ms Atrial fibrillation Abnormal ECG When compared with ECG of 23-OCT-2020 10:55, Atrial fibrillation has replaced Atrial flutter Confirmed by Yobani Fraire ([id number]) on 10/24/2020 1:37:41 PM Referred By: REFERRED SELF Confirmed By:Yobani Fraire
[2020-10-24] MEDS ORDERED: POLYETHYLENE (MIRALAX) 17 GM PACK PO SCH (16:30)
[2020-10-24] MEDS: LORazepam 2 MG/4 ML VIAL IV PRN ×2 (19:51→21:21)
[2020-10-24] MEDS ORDERED: AMIODARONE 360MG / 200ML D5W IV ONE (22:09)
[2020-10-24] MEDS ORDERED: ICU PROTOCOL FOR HYPERGLYCEMIA PRN (22:24)
[2020-10-24] MEDS ORDERED: 0.2 MICRON FILTER SET 1 EA IV ONE (22:28)
[2020-10-24] MEDS ORDERED: AMIODARONE / D5W 360 MG/200 ML BAG IV ONE (22:28)
[2020-10-24] MEDS ORDERED: STAT IV Infusion **Titration per Protocol STA ×2 (22:30→23:32)
[2020-10-24] MEDS: fentaNYL DRIP 1,250 MCG/250 ML BAG IV SCH (22:30)
[2020-10-24] MEDS ORDERED: MIDAZOLAM BOLUS FROM BAG IV PRN (22:30)
--- NOTE | 2020-10-24 22:32 | Emergency Department Note ---
ED Visit Note CODE BLUE response I responded to a CODE BLUE. The hospitalist team was present during the CODE BLUE. I performed endotracheal intubation. Procedure note Endotracheal intubation: Reason: Acute respiratory failure The patient was intubated successfully and without difficulty with a #4 [place] s cope. The endotracheal tube was visualized passing through the cords. There was no complication. End-tidal CO2 detection was present. Bilateral breath sounds are present. No epigastric sounds. It was taped to 23 at the lip. It was a 7.0 size endotracheal tube. .
--- NOTE | 2020-10-24 22:32 | Critical Care Consultation ---
Date of Consultation October 24, 2020 Assessment & Plan (1) Admitted to intensive care unit: Reason Critically Ill: 65-year-old male status post in-hospital cardiac arrest with ROSC after approximately 10 minutes requiring close hemodynamic monitoring and initiation of therapeutic hypothermia interventions. NEURO - * CAM ICU: Unable to assess * Status post cardiac arrest: * Patient is dyssynchronous with the ventilator by the time he arrived in the ICU. * Will sedate with Versed as there was concern for alcohol withdrawal versus possible seizure-like activity. * Will obtain head CT prior to initiating TTM. * Will add AM EEG. * EtOH Abuse: * Previously on AWSS protocol. * Will sedate w/ Versed. * ??breakthrough seizure activity prior to arrest. * Initially reported 6-8 beers per day on admission. In conversation with both his son and brother, they both feel as though he drinks anywhere from 12-15 beers per day and nearly 4+ cases per week. CARDIAC/VASCULAR - * In hospital cardiac arrest w/ ROSC: * Initial rhythm not noted. * Compressions initiated prior to my arrival. * Initial assessment was thought to be in PEA w/ a tachycardia. * Received 2 amps Epi, bicarb, amiodarone, calcium. * Estimated down time ~10 min. * Without the benefit of great story as to events precipitating arrest, must assume primary cardiac in origin. After conversation w/ my attending, will proceed w/ TTM per hospital protocol. Did discuss this w/ the patient's brother, Alpesh, who agrees w/ proceeding w/ TTM. * A-fib w/ RVR: * Previously w/ escalating doses of Metoprolol. * Patient responded nicely to Amio periarrest. * Will complete course of amio gtt s/p bolus. * Appreciate cardiology's ongoing management. * EKG: NSR w/ T wave inversions unchanged from priors. * Monitor on telemetry. RESPIRATORY - * Respiratory failure: * Secondary to cardiac arrest. * Intubated during code. * Will titrate down the ventilator settings as tolerated. * Currently covered for ??aspiration pneumonia w/ zosyn. * Will image chest for ??underlying contributory causes. * Currently w/ ??PNA Dx GI/NUTRITION - * NPO. * OG In place * Prophylaxis: Protonix RENAL/LYTES - * PATRICA on CKD: * Continue w/ gentle IVF s/p arrest. * IVF: Normosol @80mL/hr - * Brock in place - Strict I&Os. ENDO - * DMII * BSGs per unit protocol. ISS --> gtt per unit policy. HEME - * Stable Anemia ID - * ??Cellulitis of the LE, possible aspiration pneumonia: * Continue current Doxy/Zosyn. * Trend Lactate. * Obtain blood cultures. LINES/IV ACCESS - * PIVs x2 * RIGHT IJ CVL Cooling Catheter * Brock * ET Tube * OG DVT PROPHYLAXIS - * Hold s/p immediate arrest. Consider addition of heparin gtt for A. fib s/p arrest. Previously not anticoagulated / concern for falls on anticoagulation in the EtOH patient. * SCDs I have personally spent 85 minutes of critical care time in the direct management of this patient. This is a life/limb threatening event. This includes time spent evaluating patient, direct bedside care, chart review, placing orders, interpretation of diagnostic studies, discussion with consultants, patient, and family members, as well as other required patient management activities. This time is exclusive of all separately billable procedures, and teaching time and separate from and in addition to any other critical care service time. Thank you for allowing us to participate in the care of this patient. Please refer to my attending physician's documentation for any further recommendations. (2) Cardiac arrest: (3) Respiratory failure: (4) Acute on chronic renal failure: (5) Chronic diastolic heart failure: (6) Acute diastolic (congestive) heart failure: (7) Pneumonia: (8) Shortness of breath: (9) Psoriasis: (10) LAUREN on CPAP: (11) Obesity (BMI 30-39.9): (12) Depression: (13) Alcohol abuse: History of Present Illness Attending Physician: Pal Obrien MD History of Present Illness Patient is a 65-year-old male with a significant past medical history of A. fib, diastolic dysfunction, psoriatic arthritis, alcohol abuse, depression, obesity, obstructive sleep apnea, hypertension, hyperlipidemia, type 2 diabetes. Patient was admitted to this facility on 10/23 with shortness of breath and generalized fatigue/weakness. Patient was currently being treated for A. fib as well as cellulitis to the lower extremity and wound to the great toe. In addition, the patient has a significant history of alcohol abuse. The patient was on medications per AWSS protocol. Apparently, the patient was with increasing agitation this evening. The patient did receive Ativan appropriately for this. After soiling himself, the patient was being bathed by nursing staff when it was noted that the patient became less combative and patient was found to be pulseless. ELZBIETA WALDEN was called overhead. Upon my arrival, compressions were being performed by nursing staff. Orders directed to continue down ACLS protocol. Patient received a total of 2 doses IV epinephrine. Patient was i ntubated by emergency department physician. Patient did develop what appeared to be a wide-complex tachycardia which was unstable. Patient received cardioversion x1. Patient was ordered amiodarone bolus followed by push. This did seem to help improve rate. Patient's total downtime estimated approximately 10 minutes. Patient transferred to the ICU for ongoing evaluation and management. Allergies Allergy/AdvReac Type Severity Reaction Status Date / Time No Known Allergies Allergy Verified 10/22/20 23:24 Home Medications Medication Instructions Recorded Confirmed Type paroxetine HCl [Paxil] 40 mg PO DAILY 04/15/20 10/22/20 History ferrous sulfate 325 mg PO QAM #30 tab 10/09/20 10/22/20 Rx metoprolol tartrate 12.5 mg PO BID 30 Days #30 tab 10/09/20 10/22/20 Rx omeprazole 20 mg PO DAILY #30 cap 10/09/20 10/22/20 Rx Patient History Medical History Alcohol abuse Anemia Atrial flutter with rapid ventricular response BPH (benign prostatic hypertrophy) Depression Depression Diabetes mellitus type 2 in obese Gout History of cholesteatoma s/p radical mastoid 1991 [facility] [place] HTN (hypertension) Hyperlipidemia Obesity (BMI 30-39.9) ALUREN on CPAP Paroxysmal atrial flutter Unspecified asthma Surgical History History of tympanoplasty S/P colonoscopy last 2016 hyperplastic polyp S/P tonsillectomy Status post surgical manipulation of ankle joint "L ankle fusion " Family History Father , 40s Myocardial infarction Social History Smoking Status: Never smoker Number of Years Since Quit: 30; Second Hand Exposure: No; Hx Alcohol Use: Yes Alcohol type: beer Alcohol Intake Frequency Comment: daily - 6 betsey beers, last drink 10/07 Hx Substance Use: No Preferred Language: [place]er Communication Ability: Effective Editing Computer Publisher Required: No Beliefs That Will Affect Care: None Current Living Situation: Alone Feels Safe at Home: Yes Safety Concerns: Feels Safe At This Time Assistive Devices: None Review of Systems Review of Systems: Unobtainable due to cognitive status and Unobtainable due to endotracheal tube Physical Exam Physical Exam: VITAL SIGNS - Vital signs and nursing notes were reviewed. GENERAL - 65-year-old male appearing older than his stated age. SKIN - Without rashes. HEAD - NC/AT. EYES - PERRL with EOMI bilaterally. Sclera anicteric. Palpebral conjunctiva pink and moist with no injection noted. EARS - No deformities of external structures noted on gross examination bilaterally. NOSE - Midline and without cyanosis. No epistaxis or purulent drainage noted. MOUTH/OROPHARYNX - ET Tube in place. Without perioral cyanosis. NECK - Supple to palpation. LUNGS - Chest wall symmetric. Coarse breath sounds noted. Bibasilar rales noted. CARDIAC - RRR with S1/S2. No murmur, rubs, or gallops appreciated. ABDOMEN - Abdominal contour obese without pulsations or visible masses. BS hypoactive all four quadrants. EXTREMITIES - Diffuse scaling patches noted to the anterior surfaces throughout consistent w/ h/o psoriasis. Venous stasis noted to the bilateral lower extremities. Open wound to the RIGHT Foot. NEUROLOGIC - No focal neurological findings. Dyssynchronous with the ventilator. Does not respond to tactile stimuli. Results & Data Results & Data ([facility]) Vital Signs (Past 12 Hours) Vital Signs Temp Pulse Pulse Resp BP Pulse Ox 10/24/20 20:53 37.0 C 116 H 24 152/99 H 91 10/24/20 19:27 36.8 C 107 H 19 120/77 96 10/24/20 16:00 94 H 10/24/20 15:44 36.6 C 86 19 108/69 93 10/24/20 13:12 85 20 95 10/24/20 12:02 36.8 C 83 22 104/77 94 Coding Level of Care Code Critical Care 1st 30-74 mins Diagnoses Admitted to intensive care unit Z78.9 Cardiac arrest I46.9 Respiratory failure J96.90 Acute on chronic renal failure N17.9; N18.9 Chronic diastolic heart failure I50.32 Acute diastolic (congestive) heart failure I50.31 Pneumonia J18.9 Pneumonia type: due to unspecified organism Laterality: right Lung location: lower lobe of lung Shortness of breath R06.02 Psoriasis L40.9 LAUREN on CPAP G47.33; Z99.89 Obesity (BMI 30-39.9) E66.9 Depression F32.9 Alcohol abuse F10.10 Time Spent (min) 85 (1) Pneumonia Pneumonia type: due to unspecified organism Laterality: right Lung location: lower lobe of lung Qualified Code(s): J18.9 - Pneumonia, unspecified organism
[2020-10-24] MEDS ORDERED: MIDAZOLAM HCL 125MG/250ML D5W ONE (22:33)
[2020-10-24 22:49] LABS: Basophils # (auto) 0.04 K/uL (0-0.2); Basophils % (auto) 0.4 %; Eosinophils # (auto) 0.01 K/uL (0-0.5); Eosinophils % (auto) 0.1 %; Hematocrit (blood only) 31.1 % (42-52); Hemoglobin 9.9 g/dL (14.0-18.0); Immature Granulocytes # (auto) 0.12 K/uL (0.00-0.02); Immature Granulocytes % (auto) 1.2 %; Lymphocytes # (auto) 1.65 K/uL (1.2-3.4); Lymphocytes % (auto) 16.3 %; Mean Corpuscular Hemoglobin 24.9 pg (25-34); Mean Corpuscular Volume 78.3 fL (80-100); Mean Platelet Volume 10.8 fL (7.4-10.4); Monocytes # (auto) 0.99 K/uL (0.11-0.59); Monocytes % (auto) 9.8 %; Neutrophils % (auto) 72.2 %; Nucleated RBC # (auto) 0.03 K/uL (0-0); Nucleated RBC % (auto) 0.3 %; Platelet Count 156 K/uL (130-400); RDW Coefficient of Variation 17.2 % (11.5-14.5); RDW Standard Deviation 49.3 fL (36.4-46.3); Red Blood Count 3.97 M/uL (4.7-6.1); White Blood Count 10.11 K/uL (4.8-10.8)
[2020-10-24 22:50] LABS: Mean Corpuscular Hgb Conc 31.8 g/dL (32-36)
[2020-10-24 23:26] LABS: BUN Creatinine Ratio 17.7 (10-20); Bilirubin Direct 1.1 mg/dl (0-0.2); Calcium 9.3 mg/dl (8.5-10.1); Creatinine Clr Calc Pharmacy 40.8 ml/min; Est GFR (African American) 30.1; Magnesium 2.4 mg/dl (1.8-2.4); Potassium 3.8 mmol/L (3.5-5.1)
[2020-10-24 23:33] LABS: Bilirubin,Total 1.5 mg/dl (0.2-1); Phosphorus 6.4 mg/dl (2.5-4.9); Total Protein 7.6 gm/dl (6.4-8.2); Troponin I 0.247 ng/ml (0-0.045)
[2020-10-25] MEDS ORDERED: GABAPENTIN 600 MG TAB PO SCH (02:00)
[2020-10-25] MEDS ORDERED: STAT IV Infusion **Titration per Protocol STA ×2 (02:47→11:38)
--- NOTE | 2020-10-25 02:57 | Procedure Note ---
Procedure Note Date of Service October 25, 2020 Procedure: Internal Jugular Central Line Placement Attending: Dr. Sullivan APC: Brad Alejandro PA-C Indication: Central Drug Administration, Poor Venous Access, Multiple Lab Draws Necessary, etc. Anesthesia: Lidocaine 1% Emergent consent implied in the setting of status post cardiac arrest with need for central access and cooling catheter for therapeutic hypothermia protocol. A time-out was completed verifying correct patient, procedure, site, positioning, and implants(s) or special equipment if applicable. Patients RIGHT Neck was cleansed and draped in the typical sterile fashion using Chloraprep. The Internal Jugular Vein and Carotid Artery were identified using ultrasound. The superficial tissue was anesthetized using 3.0 mL of 1% lidocaine without epinephrine under direct visualization with the ultrasound. After adequate anesthetization was achieved, the Internal Jugular vein was cannulated under direct ultrasound guidance using an introducer needle on a syringe. Good venous blood return was maintained prior to removal of syringe from introducer needle. Using Seldinger Technique, a guide wire was advanced through the introducer needle without resistance. The introducer needle was removed and ultrasound images were obtained of the guide wire within the Internal Jugular Vein and saved to the patients medical record. A small incision was made in penetrating fashion at the guide wire insertion site utilizing an 11 blade scalpel. The dilator was advanced to the vessel without resistance. The dilator was exchanged for the triple lumen catheter which was advanced into the vessel without resistance. The guide wire was removed intact from the catheter without issue. Claves were placed on each catheter tip with confirmation of good blood flow from each lumen. Each port was easily flushed with sterile saline. The catheter was placed at 18 cm and sutured in place. BioPatch was applied to the catheter and a sterile Tegaderm dressing was applied over the catheter with careful attention to sterility. Patient tolerated procedure well. No immediate complications were met. Post procedure x-ray was completed, placement was appropriate and no pneumothorax was noted. Images obtained are saved for permanent record Procedural Ultrasound Guidance: Procedure Date: 10/25/2020 Indication: TTM, Meds, Labs Attending: Dr. Sullivan APC: Brad Alejandro PA-C Artery AND Vein visualized: YES Compressible Vein: YES Guidewire or Short Catheter seen in vein prior to dilation: YES Line confirmed in Vein with ultrasound: YES Images obtained are saved for permanent record. Coding CPT Codes Tubes, Drains, and Vasc Access - Tubes, Drains, and Vasc Access: [id number] Insertion Of Non-tunneled Catheter Age 5 Yrs> ([id number]) Tubes, Drains, and Vasc Access - Tubes, Drains, and Vasc Access: [id number] Ultrasound Guidance For Vascular ([id number]) [facility] [place] Procedure Codes (Charges) Tubes, Drains, and Vasc Access Procedure 1: Tubes, Drains, and Vasc Access: [id number] Insertion Of Non-tunneled Catheter Age 5 Yrs> Procedure 2: Tubes, Drains, and Vasc Access: [id number] Ultrasound Guidance For Vascular
[2020-10-25] MEDS: NOREPINEPHRINE/D5W 8 MG/508 ML BAG IV SCH ×2 (03:04→21:54)
[2020-10-25] MEDS: NORMOSOL-R 1,000 ML IV SCH ×2 (03:04→14:03)
[2020-10-25] MEDS: PIPERACILLIN/TAZOBACTAM 4.5 GM in DEXTROSE 5% 100 ML IV SCH ×3 (03:05→15:34)
[2020-10-25] MEDS: CISATRACURIUM BESYLATE 40 MG in 0.9 % SODIUM CHLORIDE 80 ML IV SCH ×4 (03:06→21:30)
[2020-10-25 03:25] LABS: Basophils # (auto) 0.02 K/uL (0-0.2); Basophils % (auto) 0.2 %; Hematocrit (blood only) 27.8 % (42-52); Hemoglobin 8.8 g/dL (14.0-18.0); Immature Granulocytes # (auto) 0.12 K/uL (0.00-0.02); Immature Granulocytes % (auto) 1.4 %; Lymphocytes # (auto) 0.89 K/uL (1.2-3.4); Lymphocytes % (auto) 10.1 %; Mean Corpuscular Hemoglobin 24.3 pg (25-34); Mean Corpuscular Hgb Conc 31.7 g/dL (32-36); Mean Corpuscular Volume 76.8 fL (80-100); Mean Platelet Volume 10.8 fL (7.4-10.4); Monocytes # (auto) 1.38 K/uL (0.11-0.59); Monocytes % (auto) 15.7 %; Neutrophils # (auto) 6.38 K/uL (1.4-6.5); Neutrophils % (auto) 72.6 %; Nucleated RBC # (auto) 0.02 K/uL (0-0); Nucleated RBC % (auto) 0.2 %; Platelet Count 140 K/uL (130-400); RDW Coefficient of Variation 17.1 % (11.5-14.5); RDW Standard Deviation 47.9 fL (36.4-46.3); Red Blood Count 3.62 M/uL (4.7-6.1); White Blood Count 8.79 K/uL (4.8-10.8)
[2020-10-25 03:50] LABS: BUN Creatinine Ratio 18.4 (10-20); Calcium 8.5 mg/dl (8.5-10.1); Creatinine Clr Calc Pharmacy 36.8 ml/min; Est GFR (African American) 26.6; Phosphorus 6.7 mg/dl (2.5-4.9); Troponin I 0.841 ng/ml (0-0.045)
[2020-10-25 03:55] LABS: iSTAT Art Bld Gas pCO2 Correct 37 mmHg (35-46); iSTAT Art Bld Gas pH Corrected 7.368 (7.35-7.45); iSTAT Arterial Blood Gas HCO3 21 meg/L (19-24); iSTAT Arterial Blood Gas pCO2 35 mmHg (35-46); iSTAT Arterial Blood Gas pH 7.39 (7.35-7.45); iSTAT Arterial Blood Gas pO2 192 mmHg (80-95); iSTAT Arterial Blood Gas pO2 C 199; iSTAT Carbon Dioxide 22 mmol/L (24-31); iSTAT FiO2 50 %; iSTAT Hematocrit 29 % (42-52); iSTAT Hemoglobin 9.9 g/dl (14.0-18.0); iSTAT Potassium 4.5 mmol/L (3.3-5.0); iSTAT Site Art Line; iSTAT Sodium 128 mmol/L (135-144)
--- NOTE | 2020-10-25 04:00 | Procedure Note ---
Procedure Note Date of Service October 25, 2020 Procedure: Arterial Line Placement Attending: Dr. Sullivan APC: Brad Alejandro PA-C Indication: Monitoring on Pressors Anesthesia: Lidocaine 1% Emergent consent implied in the setting of need for close hemodynamic monitoring throughout the therapeutic hypothermia protocol. A time-out was completed verifying correct patient, procedure, site, positioning, and implant(s) or special equipment if applicable. Allens test was performed to ensure adequate perfusion. Patients RIGHT wrist was prepped and draped in the usual sterile fashion. Ultrasound guidance was used to aid needle placement. A 20g Arrow arterial line was introduced into the RIGHT Radial artery. Catheter was threaded, and the needle was removed with appropriate blood return. Good waveform was observed. The patient tolerated the procedure well. Confirmation of placement with ultrasound. Blood Loss: Minimal Complications: None Procedural Ultrasound Guidance: Procedure Date: 10/25/2020 Indication: ABGs, Labs, Pressors Attending: Dr. Sullivan APC: Brad Alejandro PA-C Artery Identified: YES Line confirmed in Artery with ultrasound: YES Complications: NONE Patient tolerated procedure: WELL Coding CPT Codes Tubes, Drains, and Vasc Access - Tubes, Drains, and Vasc Access: [id number] Place Catheter In Artery ([id number]) [facility] [place] Procedure Codes (Charges) Tubes, Drains, and Vasc Access Procedure 3: Tubes, Drains, and Vasc Access: [id number] Place Catheter In Artery
[2020-10-25 04:19] LABS: Potassium 4.7 mmol/L (3.5-5.1)
[2020-10-25 05:06] LABS: Albumin Level 2.8 gm/dl (3.4-5.0); BUN Creatinine Ratio 18.9 (10-20); Calcium 7.8 mg/dl (8.5-10.1); Est GFR (African American) 29.4; Est GFR (Non-African American) 25.4; Magnesium 2.3 mg/dl (1.8-2.4); Potassium 4.2 mmol/L (3.5-5.1)
[2020-10-25 05:09] LABS: Bilirubin,Total 1.3 mg/dl (0.2-1); C Reactive Protein 11.9 mg/dl (0-0.29); Phosphorus 6.7 mg/dl (2.5-4.9); Total Protein 6.7 gm/dl (6.4-8.2)
[2020-10-25] MEDS ORDERED: 0.2 MICRON FILTER SET 1 EA IV ONE (06:27)
[2020-10-25] MEDS ORDERED: AMIODARONE / D5W 360 MG/200 ML BAG IV SCH (06:30)
[2020-10-25] MEDS: MIDAZOLAM HCL 125 MG/250 ML BAG IV PRN (07:06)
--- NOTE | 2020-10-25 07:32 | CT Scan Report ---
HEAD CT NONCONTRAST CT DOSE: HISTORY: s/p cardiac arrest TECHNIQUE: Multiaxial CT images of the head were performed without the use of intravenous contrast. A utomated exposure control was utilized for this study. A dose lowering technique was utilized adheri ng to the principles of ALARA. Comparison: 04/29/2020. Findings: The paranasal sinuses and mastoid air cells are clear. The calvarium and skull base are int act. The ventricles and sulci are within normal limits. There is no mass, hematoma, midline shift, or acute infarct. Impression: No acute intracranial abnormality. ACT 112: Negative or not required by law. Electronically signed by: Kirk Watkins M.D. 10/25/2020 7:31 AM
[2020-10-25 07:34] LABS: Hematocrit (blood only) 29.4 % (42-52); Hemoglobin 9.3 g/dL (14.0-18.0)
--- NOTE | 2020-10-25 07:44 | Hospitalist Progress Note ---
Date of Service October 25, 2020 Assessment & Plan (1) Shortness of breath: (2) Weakness: (3) Acute diastolic (congestive) heart failure: (4) Pneumonia: (5) Hypokalemia: (6) CHF (congestive heart failure): Cardiac arrest This is a 65-year-old male who presents with shortness of breath. Pt initially treated for CHF exacerbation, RLL PNA, Aflutter, poss. R foot cellulitis. Pt w/ hx of alcohol abuse (confirmed by pt and his family members), on etoh withdrawal protocol. Night of 10/24 - pt received ativan per etoh withdrawal protocol as he was found to be agitated. Soon after pt witnessed LOC and pulseless, code blue was called, CPR per nursing staff, ACLS protocol - epi x2, cardioversion for wide complex tachycardia, started on amiodarone, intubated by ER physician. Pt then in care of ICU. Currently on hypothermic protocol. Cardiac arrest Bradycardia Night of 10/24 - pt received ativan per etoh withdrawal protocol as he was found to be agitated. Soon after pt witnessed LOC and pulseless, code blue was called, CPR per nursing staff, ACLS protocol - epi x2, cardioversion for wide complex tachycardia, started on amiodarone, intubated by ER physician. Pt in care of ICU. Currently on hypothermic protocol. Currently bradycardic - amiodarone to be stopped as well as metoprolol Trop elevated (also some mild elevation noted on admission believed to be 2/2 CHF exacerbation) Echo repeated Cardiology following 1. Pt initially admitted for Shortness of breath most likely acute on chronic diastolic congestive heart failure and also right sided heart failure, Aflutter and CAP. CXR c/w with cardiomegaly pulm. congestion and airspace consolidation in R lung base Elevated troponin on admission, secondary to above Last echo 10/08/2020 -LV is normal in size. EF 60 to 65%. RV is moderately dilated. RV systolic function is moderately reduced. LA is moderately dilated. RA is moderately dilated. There is mild mitral regurg. Pulmonary hypertension is suspected and the estimated pulmonary artery systolic pressure is between 55 and 60 mmHg. ER gave one dose of iv Lasix 40mg. Continued with IV 40mg Lasix daily, stopped yesterday (10/24) d/t Cr elev. Continued PO metoprolol, now stopped d/t bradycardia as above Pt was not a candidate for anticoagulation in the past - hx of alcoholism, risk of fall, recurrent blood loss d/t varicose bleed (last one 10/08) Given elev. trop, aflutter and now cardiac arrest, risk of CVA, recommended at least transient AC and started IV heparin Follow daily weights, I's and O's, monitor in the tele floor. Cardiology consulted, appreciate their input CT chest - negative for PE. 2. Tachycardia on admission, most likely 2/2 CHF, PNA and alcohol withdrawal. The patient was also on high dose of Lopressor in the past. Recently restarted on 12.5 b.i.d. Continued the 12.[address] him on IV Lopressor p.r.n. Monitor the heart rates and adjust medications and await cardiac input. 3. CAP - CXR c/w Airspace consolidation is seen in the right lung base - procalcitonin elevated - pt started on Rocephin and doxy on admission - switched to zosyn for concern of poss. aspiration 4. Lower extremity Cellulitis? open wound on right foot. Obtained doppler - negative for DVT Obtained CT foot - negative for osteomyelitis ESR, CRP elevated Blood cultx - pending Wound care consulted Cont. Abx as above 5. Alcoholism, alcohol withdrawal with tachycardia and hypertension. Continued with gabapentin protocol and also IV Ativan p.r.n. Continue with IV thiamine, IV folic acid. Closely monitor for withdrawal. Pt received ativan the night of 10/24, per etoh withdrawal protocol, then LOC and code blue/ cardiac arrest as above 6 Anemia. Hemoglobin is stable at 9.5, on iron supplements. We will continue. Recent hx of venous ulcer bleed. 7. Hypertension Previously was on lisinopril 20 mg and metoprolol tartrate 50 mg b.i.d. On last admission, he was discharged on metoprolol 12.5 mg b.i.d. (pt was not on any medications prior to recent admission d/t lack of insurance) Continued PO metoprolol, will increase to [address] him on IV Lopressor. Monitor blood pressure. 8. Diabetes. Last HbA1c was 5.7. We will monitor the blood sugar. 9. Obstructive sleep apnea, on CPAP at bedtime. Now pt intubated. 10. Psoriasis. Previously on Humira. Needs followup. 11. History of paroxysmal atrial flutter. We will monitor. Await cardiac input. As above, will start IV heparin 12. Hypomagnesemia, replaced in the ER.Follow labs DVT prophylaxis, held heparin initially given recent bleed (from venous ulcer), now started on IV heparin Admission and Anticipated Discharge Date Admission Date: October 23, 2020 Subjective Pt admitted for shortness of breath, CHF exacerb., PNA, daphney/aflutter. Overnight code blue called. Events reviewed. Pt with increasing agitation initially treated with IV ativan as per EtOH withdrawal protocol. Pt with witnessed LOC and pulseless, PEA. Pt received CPR, IV epinephrine per ACLS protocol. s/p cardioversion. Patient was intubated and sedated. Patient begun on IV amiodarone at that time Patient is undergoing cooling/hypothermia protocol. Pt seen in ICU. Review of Systems Review of Systems: Unobtainable due to endotracheal tube and Unobtainable due to reduced consciousness Physical Exam Physical Exam: GENERAL: obese male, sedated and intubated HEENT: NC/AT, Pupils equal, round, reactive to light. Oral mucosa somewhat dry. NECK: No JVD, no neck masses seen. CARDIOVASCULAR: S1, S2 heard. + bradycardia. No murmurs. RESPIRATORY SYSTEM: on mechanical vent. +Mild bibasilar crackles, no wheezing ABDOMEN: Soft, bowel sounds present, nondistended, obese NEURO: sedated EXTREMITIES: Bilateral lower extremity chronic skin changes c/w venous stasis and varicosities, open cut in the plantar aspect of the right foot near the big toe. No drainage seen. SKIN: skin changes c/w venous stasis and varicosities, + extensive psoriasis Results & Data Results & Data ([facility]) Vital Signs (Past 12 Hours) Vital Signs Temp Temp Pulse Pulse Resp BP BP 10/25/20 06:03 35.2 C L 54 L 154/97 H 10/25/20 06:00 35.1 C L 51 L 18 154/97 H 10/25/20 05:33 35.7 C L 60 152/121 H 10/25/20 05:03 62 140/104 H 10/25/20 05:00 36.2 C L 68 18 153/75 H 10/25/20 04:51 62 136/93 10/25/20 04:47 38 C H 77 22 99/74 L 10/25/20 04:34 75 10/25/20 04:01 72 99/74 L 10/25/20 03:51 77 90/73 L 10/25/20 03:47 38.6 C H 72 38 H 99/84 L 10/25/20 03:41 71 108/77 10/25/20 03:31 70 86/63 L 10/25/20 03:21 66 96/71 L 10/25/20 03:11 68 100/64 10/25/20 03:01 38.6 C H 75 99/84 L 10/25/20 02:51 74 102/77 10/25/20 02:50 73 18 10/25/20 02:41 78 98/71 L 10/25/20 02:31 72 105/75 10/25/20 02:21 67 106/77 10/25/20 02:11 71 98/66 L 10/25/20 02:01 38.6 C H 82 97/75 L 10/25/20 01:51 66 102/60 10/25/20 01:41 78 95/76 L 10/25/20 01:31 81 99/72 L 10/25/20 01:21 82 87/71 L 10/25/20 01:11 75 104/75 10/25/20 01:01 80 103/89 10/25/20 00:51 78 100/73 10/25/20 00:41 87 94/66 L 10/25/20 00:31 85 99/85 L 10/25/20 00:21 79 91/63 L 10/25/20 00:11 85 87/67 L 10/25/20 00:01 84 98/66 L 10/24/20 23:50 84 25 H 95/56 L 10/24/20 23:41 90 32 H 83/63 L 10/24/20 23:31 97 H 23 82/62 L 10/24/20 22:39 109 H 124/101 H 10/24/20 20:53 37.0 C 116 H 24 152/99 H 10/24/20 20:20 80 25 H BP Pulse Ox 10/25/20 06:03 97 10/25/20 06:00 145/81 H 99 10/25/20 05:33 99 10/25/20 05:03 93 10/25/20 05:00 140/104 H 97 10/25/20 04:51 100 10/25/20 04:47 114/51 L 97 10/25/20 04:34 96 10/25/20 04:01 10/25/20 03:51 10/25/20 03:47 100 10/25/20 03:41 93 10/25/20 03:31 100 10/25/20 03:21 100 10/25/20 03:11 100 10/25/20 03:01 100 10/25/20 02:51 98 10/25/20 02:50 98 10/25/20 02:41 100 10/25/20 02:31 10/25/20 02:21 10/25/20 02:11 10/25/20 02:01 10/25/20 01:51 98 10/25/20 01:41 100 10/25/20 01:31 100 10/25/20 01:21 100 10/25/20 01:11 100 10/25/20 01:01 100 10/25/20 00:51 99 10/25/20 00:41 99 10/25/20 00:31 99 10/25/20 00:21 98 10/25/20 00:11 100 10/25/20 00:01 98 10/24/20 23:50 98 10/24/20 23:41 98 10/24/20 23:31 98 10/24/20 22:39 89 L 10/24/20 20:53 91 10/24/20 20:20 99 Laboratory Results 10/25/20 10/25/20 10/25/20 Range/Units 15:04 14:43 14:43 WBC (4.8-10.8) K/uL RBC (4.7-6.1) M/uL Hgb (14.0-18.0) g/dL POC Hgb 9.9 L (14.0-18.0) g/dl Hct (42-52) % POC Hct 29 L (42-52) % MCV (80-100) fL MCH (25-34) pg MCHC (32-36) g/dL RDW Std Deviation (36.4-46.3) fL RDW Coeff of Noam (11.5-14.5) % Plt Count (130-400) K/uL MPV (7.4-10.4) fL Immature Gran % (Auto) % Neut % (Auto) % Lymph % (Auto) % [place] % (Auto) % Eos % (Auto) % Baso % (Auto) % Neut # (Auto) (1.4-6.5) K/uL Lymph # (Auto) (1.2-3.4) K/uL [place] # (Auto) (0.11-0.59) K/uL Eos # (Auto) (0-0.5) K/uL Baso # (Auto) (0-0.2) K/uL Immature Gran # (Auto) (0.00-0.02) K/uL Absolute Nucleated RBC (0-0) K/uL Nucleated RBC % (auto) % ESR (0-14) mm/hr Sample Site Art Line POC pH 7.42 (7.35-7.45) POC pCO2 33 L (35-46) mmHg POC pO2 110 H (80-95) mmHg POC HCO3 22 (19-24) suellen/L POC Total CO2 23 L (24-31) mmol/L POC Base Excess -3.0 (-9-1.8) suellen/L ABG pH (Temp Correct) 7.475 H (7.35-7.45) ABG pCO2 (Temp Corrct 28 L (35-46) mmHg POC ABG pO2 at Pt Temp 90 POC ABG O2 Sat 98.0 H (90-95) % Alex Test NA O2 Delivery Device Ventilator POC O2 Rate 18 POC FiO2 30 % Tidal Volume 550 PEEP 8 POC Sodium 131 L (135-144) mmol/L Sodium (136-145) mmol/L POC Potassium 3.3 (3.3-5.0) mmol/L Potassium (3.5-5.1) mmol/L Chloride (98-107) mmol/L Carbon Dioxide (21-32) mmol/L Anion Gap (3-11) BUN (7-18) mg/dl Creatinine (0.6-1.4) mg/dl POC Creatinine (0.6-1.3) mg/dl Est Cr Clr Drug Dosing ml/min Est GFR ( Amer) Est GFR (Non-Af Amer) BUN/Creatinine Ratio (10-20) Glucose (70-99) mg/dl Lactate (0.4-2.0) mmol/L Calcium (8.5-10.1) mg/dl Ionized Calcium 1.03 L (1.12-1.32) mmol/L Phosphorus (2.5-4.9) mg/dl Magnesium 2.5 H (1.8-2.4) mg/dl Total Bilirubin (0.2-1) mg/dl Direct Bilirubin (0-0.2) mg/dl AST (15-37) U/L ALT (12-78) U/L Alkaline Phosphatase (45-117) U/L Troponin I (0-0.045) ng/ml C-Reactive Protein (0-0.29) mg/dl Total Protein (6.4-8.2) gm/dl Albumin (3.4-5.0) gm/dl Procalcitonin (0-0.5) ng/ml Nasal Screen MRSA (PCR) (Negative) 10/25/20 10/25/20 10/25/20 Range/Units 14:43 14:43 12:18 WBC (4.8-10.8) K/uL RBC (4.7-6.1) M/uL Hgb 9.2 L (14.0-18.0) g/dL POC Hgb 12.9 L (14.0-18.0) g/dl Hct 29.0 L (42-52) % POC Hct 38 L (42-52) % MCV (80-100) fL MCH (25-34) pg MCHC (32-36) g/dL RDW Std Deviation (36.4-46.3) fL RDW Coeff of Noam (11.5-14.5) % Plt Count (130-400) K/uL MPV (7.4-10.4) fL Immature Gran % (Auto) % Neut % (Auto) % Lymph % (Auto) % [place] % (Auto) % Eos % (Auto) % Baso % (Auto) % Neut # (Auto) (1.4-6.5) K/uL Lymph # (Auto) (1.2-3.4) K/uL [place] # (Auto) (0.11-0.59) K/uL Eos # (Auto) (0-0.5) K/uL Baso # (Auto) (0-0.2) K/uL Immature Gran # (Auto) (0.00-0.02) K/uL Absolute Nucleated RBC (0-0) K/uL Nucleated RBC % (auto) % ESR (0-14) mm/hr Sample Site Art Line POC pH 7.06 L* (7.35-7.45) POC pCO2 79 H (35-46) mmHg POC pO2 133 H (80-95) mmHg POC HCO3 23 (19-24) suellen/L POC Total CO2 25 (24-31) mmol/L POC Base Excess -8.0 (-9-1.8) suellen/L ABG pH (Temp Correct) 7.098 L* (7.35-7.45) ABG pCO2 (Temp Corrct 70 H (35-46) mmHg POC ABG pO2 at Pt Temp 118 POC ABG O2 Sat 97.0 H (90-95) % Alex Test NA O2 Delivery Device Ventilator POC O2 Rate 18 POC FiO2 100 % Tidal Volume 550 PEEP 8 POC Sodium 130 L (135-144) mmol/L Sodium 133 L (136-145) mmol/L POC Potassium 4.3 (3.3-5.0) mmol/L Potassium 3.5 (3.5-5.1) mmol/L Chloride 98 (98-107) mmol/L Carbon Dioxide 23 (21-32) mmol/L Anion Gap 12.0 H (3-11) BUN 54 H (7-18) mg/dl Creatinine 2.45 H (0.6-1.4) mg/dl POC Creatinine (0.6-1.3) mg/dl Est Cr Clr Drug Dosing 44.6 ml/min Est GFR ( Amer) 31.3 Est GFR (Non-Af Amer) 27.0 BUN/Creatinine Ratio 22.0 H (10-20) Glucose 183 H (70-99) mg/dl Lactate (0.4-2.0) mmol/L Calcium 7.9 L (8.5-10.1) mg/dl Ionized Calcium (1.12-1.32) mmol/L Phosphorus 6.4 H (2.5-4.9) mg/dl Magnesium (1.8-2.4) mg/dl Total Bilirubin (0.2-1) mg/dl Direct Bilirubin (0-0.2) mg/dl AST (15-37) U/L ALT (12-78) U/L Alkaline Phosphatase (45-117) U/L Troponin I (0-0.045) ng/ml C-Reactive Protein (0-0.29) mg/dl Total Protein (6.4-8.2) gm/dl Albumin (3.4-5.0) gm/dl Procalcitonin (0-0.5) ng/ml Nasal Screen MRSA (PCR) (Negative) 10/25/20 10/25/20 10/25/20 Range/Units 10:45 10:45 10:45 WBC (4.8-10.8) K/uL RBC (4.7-6.1) M/uL Hgb (14.0-18.0) g/dL POC Hgb (14.0-18.0) g/dl Hct (42-52) % POC Hct (42-52) % MCV (80-100) fL MCH (25-34) pg MCHC (32-36) g/dL RDW Std Deviation (36.4-46.3) fL RDW Coeff of Noam (11.5-14.5) % Plt Count (130-400) K/uL MPV (7.4-10.4) fL Immature Gran % (Auto) % Neut % (Auto) % Lymph % (Auto) % [place] % (Auto) % Eos % (Auto) % Baso % (Auto) % Neut # (Auto) (1.4-6.5) K/uL Lymph # (Auto) (1.2-3.4) K/uL [place] # (Auto) (0.11-0.59) K/uL Eos # (Auto) (0-0.5) K/uL Baso # (Auto) (0-0.2) K/uL Immature Gran # (Auto) (0.00-0.02) K/uL Absolute Nucleated RBC (0-0) K/uL Nucleated RBC % (auto) % ESR (0-14) mm/hr Sample Site POC pH (7.35-7.45) POC pCO2 (35-46) mmHg POC pO2 (80-95) mmHg POC HCO3 (19-24) suellen/L POC Total CO2 (24-31) mmol/L POC Base Excess (-9-1.8) suellen/L ABG pH (Temp Correct) (7.35-7.45) ABG pCO2 (Temp Corrct (35-46) mmHg POC ABG pO2 at Pt Temp POC ABG O2 Sat (90-95) % Alex Test O2 Delivery Device POC O2 Rate POC FiO2 % Tidal Volume PEEP POC Sodium (135-144) mmol/L Sodium 131 L (136-145) mmol/L POC Potassium (3.3-5.0) mmol/L Potassium 3.5 (3.5-5.1) mmol/L Chloride 99 (98-107) mmol/L Carbon Dioxide 23 (21-32) mmol/L Anion Gap 9.0 (3-11) BUN 55 H (7-18) mg/dl Creatinine 2.54 H (0.6-1.4) mg/dl POC Creatinine (0.6-1.3) mg/dl Est Cr Clr Drug Dosing 43.0 ml/min Est GFR ( Amer) 29.9 Est GFR (Non-Af Amer) 25.8 BUN/Creatinine Ratio 21.7 H (10-20) Glucose 172 H (70-99) mg/dl Lactate (0.4-2.0) mmol/L Calcium 7.9 L (8.5-10.1) mg/dl Ionized Calcium 1.01 L (1.12-1.32) mmol/L Phosphorus 5.7 H (2.5-4.9) mg/dl Magnesium 2.5 H (1.8-2.4) mg/dl Total Bilirubin (0.2-1) mg/dl Direct Bilirubin (0-0.2) mg/dl AST (15-37) U/L ALT (12-78) U/L Alkaline Phosphatase (45-117) U/L Troponin I 0.304 H* (0-0.045) ng/ml C-Reactive Protein (0-0.29) mg/dl Total Protein (6.4-8.2) gm/dl Albumin (3.4-5.0) gm/dl Procalcitonin (0-0.5) ng/ml Nasal Screen MRSA (PCR) (Negative) 10/25/20 10/25/20 10/25/20 Range/Units 10:45 07:15 07:15 WBC (4.8-10.8) K/uL RBC (4.7-6.1) M/uL Hgb 8.4 L (14.0-18.0) g/dL POC Hgb (14.0-18.0) g/dl Hct 26.5 L (42-52) % POC Hct (42-52) % MCV (80-100) fL MCH (25-34) pg MCHC (32-36) g/dL RDW Std Deviation (36.4-46.3) fL RDW Coeff of Noam (11.5-14.5) % Plt Count (130-400) K/uL MPV (7.4-10.4) fL Immature Gran % (Auto) % Neut % (Auto) % Lymph % (Auto) % [place] % (Auto) % Eos % (Auto) % Baso % (Auto) % Neut # (Auto) (1.4-6.5) K/uL Lymph # (Auto) (1.2-3.4) K/uL [place] # (Auto) (0.11-0.59) K/uL Eos # (Auto) (0-0.5) K/uL Baso # (Auto) (0-0.2) K/uL Immature Gran # (Auto) (0.00-0.02) K/uL Absolute Nucleated RBC (0-0) K/uL Nucleated RBC % (auto) % ESR (0-14) mm/hr Sample Site POC pH (7.35-7.45) POC pCO2 (35-46) mmHg POC pO2 (80-95) mmHg POC HCO3 (19-24) suellen/L POC Total CO2 (24-31) mmol/L POC Base Excess (-9-1.8) suellen/L ABG pH (Temp Correct) (7.35-7.45) ABG pCO2 (Temp Corrct (35-46) mmHg POC ABG pO2 at Pt Temp POC ABG O2 Sat (90-95) % Alex Test O2 Delivery Device POC O2 Rate POC FiO2 % Tidal Volume PEEP POC Sodium (135-144) mmol/L Sodium (136-145) mmol/L POC Potassium (3.3-5.0) mmol/L Potassium (3.5-5.1) mmol/L Chloride (98-107) mmol/L Carbon Dioxide (21-32) mmol/L Anion Gap (3-11) BUN (7-18) mg/dl Creatinine (0.6-1.4) mg/dl POC Creatinine (0.6-1.3) mg/dl Est Cr Clr Drug Dosing ml/min Est GFR ( Amer) Est GFR (Non-Af Amer) BUN/Creatinine Ratio (10-20) Glucose (70-99) mg/dl Lactate (0.4-2.0) mmol/L Calcium (8.5-10.1) mg/dl Ionized Calcium 1.03 L (1.12-1.32) mmol/L Phosphorus (2.5-4.9) mg/dl Magnesium 2.6 H (1.8-2.4) mg/dl Total Bilirubin (0.2-1) mg/dl Direct Bilirubin (0-0.2) mg/dl AST (15-37) U/L ALT (12-78) U/L Alkaline Phosphatase (45-117) U/L Troponin I (0-0.045) ng/ml C-Reactive Protein (0-0.29) mg/dl Total Protein (6.4-8.2) gm/dl Albumin (3.4-5.0) gm/dl Procalcitonin (0-0.5) ng/ml Nasal Screen MRSA (PCR) (Negative) 10/25/20 10/25/20 10/25/20 Range/Units 07:15 07:15 04:37 WBC (4.8-10.8) K/uL RBC (4.7-6.1) M/uL Hgb 9.3 L (14.0-18.0) g/dL POC Hgb (14.0-18.0) g/dl Hct 29.4 L (42-52) % POC Hct (42-52) % MCV (80-100) fL MCH (25-34) pg MCHC (32-36) g/dL RDW Std Deviation (36.4-46.3) fL RDW Coeff of Noam (11.5-14.5) % Plt Count (130-400) K/uL MPV (7.4-10.4) fL Immature Gran % (Auto) % Neut % (Auto) % Lymph % (Auto) % [place] % (Auto) % Eos % (Auto) % Baso % (Auto) % Neut # (Auto) (1.4-6.5) K/uL Lymph # (Auto) (1.2-3.4) K/uL [place] # (Auto) (0.11-0.59) K/uL Eos # (Auto) (0-0.5) K/uL Baso # (Auto) (0-0.2) K/uL Immature Gran # (Auto) (0.00-0.02) K/uL Absolute Nucleated RBC (0-0) K/uL Nucleated RBC % (auto) % ESR 56 H (0-14) mm/hr Sample Site POC pH (7.35-7.45) POC pCO2 (35-46) mmHg POC pO2 (80-95) mmHg POC HCO3 (19-24) suellen/L POC Total CO2 (24-31) mmol/L POC Base Excess (-9-1.8) suellen/L ABG pH (Temp Correct) (7.35-7.45) ABG pCO2 (Temp Corrct (35-46) mmHg POC ABG pO2 at Pt Temp POC ABG O2 Sat (90-95) % Alex Test O2 Delivery Device POC O2 Rate POC FiO2 % Tidal Volume PEEP POC Sodium (135-144) mmol/L Sodium 130 L (136-145) mmol/L POC Potassium (3.3-5.0) mmol/L Potassium 4.0 (3.5-5.1) mmol/L Chloride 95 L (98-107) mmol/L Carbon Dioxide 22 (21-32) mmol/L Anion Gap 13.0 H (3-11) BUN 51 H (7-18) mg/dl Creatinine 2.78 H (0.6-1.4) mg/dl POC Creatinine (0.6-1.3) mg/dl Est Cr Clr Drug Dosing 39.3 ml/min Est GFR ( Amer) 26.9 Est GFR (Non-Af Amer) 23.2 BUN/Creatinine Ratio 18.2 (10-20) Glucose 164 H (70-99) mg/dl Lactate (0.4-2.0) mmol/L Calcium 8.8 (8.5-10.1) mg/dl Ionized Calcium (1.12-1.32) mmol/L Phosphorus 6.4 H (2.5-4.9) mg/dl Magnesium (1.8-2.4) mg/dl Total Bilirubin (0.2-1) mg/dl Direct Bilirubin (0-0.2) mg/dl AST (15-37) U/L ALT (12-78) U/L Alkaline Phosphatase (45-117) U/L Troponin I (0-0.045) ng/ml C-Reactive Protein (0-0.29) mg/dl Total Protein (6.4-8.2) gm/dl Albumin (3.4-5.0) gm/dl Procalcitonin (0-0.5) ng/ml Nasal Screen MRSA (PCR) (Negative) 10/25/20 10/25/20 10/25/20 Range/Units 04:37 03:42 03:39 WBC (4.8-10.8) K/uL RBC (4.7-6.1) M/uL Hgb (14.0-18.0) g/dL POC Hgb 9.9 L (14.0-18.0) g/dl Hct (42-52) % POC Hct 29 L (42-52) % MCV (80-100) fL MCH (25-34) pg MCHC (32-36) g/dL RDW Std Deviation (36.4-46.3) fL RDW Coeff of Noam (11.5-14.5) % Plt Count (130-400) K/uL MPV (7.4-10.4) fL Immature Gran % (Auto) % Neut % (Auto) % Lymph % (Auto) % [place] % (Auto) % Eos % (Auto) % Baso % (Auto) % Neut # (Auto) (1.4-6.5) K/uL Lymph # (Auto) (1.2-3.4) K/uL [place] # (Auto) (0.11-0.59) K/uL Eos # (Auto) (0-0.5) K/uL Baso # (Auto) (0-0.2) K/uL Immature Gran # (Auto) (0.00-0.02) K/uL Absolute Nucleated RBC (0-0) K/uL Nucleated RBC % (auto) % ESR (0-14) mm/hr Sample Site Art Line POC pH 7.39 (7.35-7.45) POC pCO2 35 (35-46) mmHg POC pO2 192 H (80-95) mmHg POC HCO3 21 (19-24) suellen/L POC Total CO2 22 L (24-31) mmol/L POC Base Excess -4.0 (-9-1.8) suellen/L ABG pH (Temp Correct) 7.368 (7.35-7.45) ABG pCO2 (Temp Corrct 37 (35-46) mmHg POC ABG pO2 at Pt Temp 199 POC ABG O2 Sat 100.0 H (90-95) % Alex Test NA O2 Delivery Device Ventilator POC O2 Rate POC FiO2 50 % Tidal Volume PEEP 8 POC Sodium 128 L (135-144) mmol/L Sodium 132 L (136-145) mmol/L POC Potassium 4.5 (3.3-5.0) mmol/L Potassium 4.2 (3.5-5.1) mmol/L Chloride 101 (98-107) mmol/L Carbon Dioxide 20 L (21-32) mmol/L Anion Gap 11.0 (3-11) BUN 49 H (7-18) mg/dl Creatinine 2.58 H (0.6-1.4) mg/dl POC Creatinine 3.0 H (0.6-1.3) mg/dl Est Cr Clr Drug Dosing 40.0 ml/min Est GFR ( Amer) 29.4 Est GFR (Non-Af Amer) 25.4 BUN/Creatinine Ratio 18.9 (10-20) Glucose 128 H (70-99) mg/dl Lactate (0.4-2.0) mmol/L Calcium 7.8 L (8.5-10.1) mg/dl Ionized Calcium (1.12-1.32) mmol/L Phosphorus 6.7 H (2.5-4.9) mg/dl Magnesium 2.3 (1.8-2.4) mg/dl Total Bilirubin 1.3 H (0.2-1) mg/dl Direct Bilirubin 1.0 H (0-0.2) mg/dl AST 94 H (15-37) U/L ALT 41 (12-78) U/L Alkaline Phosphatase 84 (45-117) U/L Troponin I (0-0.045) ng/ml C-Reactive Protein 11.90 H (0-0.29) mg/dl Total Protein 6.7 (6.4-8.2) gm/dl Albumin 2.8 L (3.4-5.0) gm/dl Procalcitonin (0-0.5) ng/ml Nasal Screen MRSA (PCR) (Negative) 10/25/20 10/25/20 10/25/20 Range/Units 03:16 03:16 03:16 WBC (4.8-10.8) K/uL RBC (4.7-6.1) M/uL Hgb (14.0-18.0) g/dL POC Hgb (14.0-18.0) g/dl Hct (42-52) % POC Hct (42-52) % MCV (80-100) fL MCH (25-34) pg MCHC (32-36) g/dL RDW Std Deviation (36.4-46.3) fL RDW Coeff of Noam (11.5-14.5) % Plt Count (130-400) K/uL MPV (7.4-10.4) fL Immature Gran % (Auto) % Neut % (Auto) % Lymph % (Auto) % [place] % (Auto) % Eos % (Auto) % Baso % (Auto) % Neut # (Auto) (1.4-6.5) K/uL Lymph # (Auto) (1.2-3.4) K/uL [place] # (Auto) (0.11-0.59) K/uL Eos # (Auto) (0-0.5) K/uL Baso # (Auto) (0-0.2) K/uL Immature Gran # (Auto) (0.00-0.02) K/uL Absolute Nucleated RBC (0-0) K/uL Nucleated RBC % (auto) % ESR (0-14) mm/hr Sample Site POC pH (7.35-7.45) POC pCO2 (35-46) mmHg POC pO2 (80-95) mmHg POC HCO3 (19-24) suellen/L POC Total CO2 (24-31) mmol/L POC Base Excess (-9-1.8) suellen/L ABG pH (Temp Correct) (7.35-7.45) ABG pCO2 (Temp Corrct (35-46) mmHg POC ABG pO2 at Pt Temp POC ABG O2 Sat (90-95) % Alex Test O2 Delivery Device POC O2 Rate POC FiO2 % [place] Volume PEEP POC Sodium (135-144) mmol/L Sodium 132 L (136-145) mmol/L POC Potassium (3.3-5.0) mmol/L Potassium 4.7 D (3.5-5.1) mmol/L Chloride 97 L (98-107) mmol/L Carbon Dioxide 24 (21-32) mmol/L Anion Gap 11.0 (3-11) BUN 52 H (7-18) mg/dl Creatinine 2.80 H (0.6-1.4) mg/dl POC Creatinine (0.6-1.3) mg/dl Est Cr Clr Drug Dosing 36.8 ml/min Est GFR ( Amer) 26.6 Est GFR (Non-Af Amer) 23.0 BUN/Creatinine Ratio 18.4 (10-20) Glucose 112 H (70-99) mg/dl Lactate 2.0 (0.4-2.0) mmol/L Calcium 8.5 (8.5-10.1) mg/dl Ionized Calcium 1.06 L (1.12-1.32) mmol/L Phosphorus 6.7 H (2.5-4.9) mg/dl Magnesium (1.8-2.4) mg/dl Total Bilirubin (0.2-1) mg/dl Direct Bilirubin (0-0.2) mg/dl AST (15-37) U/L ALT (12-78) U/L Alkaline Phosphatase (45-117) U/L Troponin I 0.841 H* (0-0.045) ng/ml C-Reactive Protein (0-0.29) mg/dl Total Protein (6.4-8.2) gm/dl Albumin (3.4-5.0) gm/dl Procalcitonin (0-0.5) ng/ml Nasal Screen MRSA (PCR) (Negative) 10/25/20 10/25/20 10/24/20 Range/Units 03:16 03:16 22:35 WBC 8.79 (4.8-10.8) K/uL RBC 3.62 L (4.7-6.1) M/uL Hgb 8.8 L (14.0-18.0) g/dL POC Hgb (14.0-18.0) g/dl Hct 27.8 L (42-52) % POC Hct (42-52) % MCV 76.8 L (80-100) fL MCH 24.3 L (25-34) pg MCHC 31.7 L (32-36) g/dL RDW Std Deviation 47.9 H (36.4-46.3) fL RDW Coeff of Noam 17.1 H (11.5-14.5) % Plt Count 140 (130-400) K/uL MPV 10.8 H (7.4-10.4) fL Immature Gran % (Auto) 1.4 % Neut % (Auto) 72.6 % Lymph % (Auto) 10.1 % [place] % (Auto) 15.7 % Eos % (Auto) 0.0 % Baso % (Auto) 0.2 % Neut # (Auto) 6.38 (1.4-6.5) K/uL Lymph # (Auto) 0.89 L (1.2-3.4) K/uL [place] # (Auto) 1.38 H (0.11-0.59) K/uL Eos # (Auto) 0.00 (0-0.5) K/uL Baso # (Auto) 0.02 (0-0.2) K/uL Immature Gran # (Auto) 0.12 H (0.00-0.02) K/uL Absolute Nucleated RBC 0.02 H (0-0) K/uL Nucleated RBC % (auto) 0.2 % ESR (0-14) mm/hr Sample Site POC pH (7.35-7.45) POC pCO2 (35-46) mmHg POC pO2 (80-95) mmHg POC HCO3 (19-24) suellen/L POC Total CO2 (24-31) mmol/L POC Base Excess (-9-1.8) suellen/L ABG pH (Temp Correct) (7.35-7.45) ABG pCO2 (Temp Corrct (35-46) mmHg POC ABG pO2 at Pt Temp POC ABG O2 Sat (90-95) % Alex Test O2 Delivery Device POC O2 Rate POC FiO2 % [place] Volume PEEP POC Sodium (135-144) mmol/L Sodium (136-145) mmol/L POC Potassium (3.3-5.0) mmol/L Potassium (3.5-5.1) mmol/L Chloride (98-107) mmol/L Carbon Dioxide (21-32) mmol/L Anion Gap (3-11) BUN (7-18) mg/dl Creatinine (0.6-1.4) mg/dl POC Creatinine (0.6-1.3) mg/dl Est Cr Clr Drug Dosing ml/min Est GFR ( Amer) Est GFR (Non-Af Amer) BUN/Creatinine Ratio (10-20) Glucose (70-99) mg/dl Lactate (0.4-2.0) mmol/L Calcium (8.5-10.1) mg/dl Ionized Calcium (1.12-1.32) mmol/L Phosphorus (2.5-4.9) mg/dl Magnesium (1.8-2.4) mg/dl Total Bilirubin (0.2-1) mg/dl Direct Bilirubin (0-0.2) mg/dl AST (15-37) U/L ALT (12-78) U/L Alkaline Phosphatase (45-117) U/L Troponin I (0-0.045) ng/ml C-Reactive Protein (0-0.29) mg/dl Total Protein (6.4-8.2) gm/dl Albumin (3.4-5.0) gm/dl Procalcitonin 6.07 H (0-0.5) ng/ml Nasal Screen MRSA (PCR) Negative (Negative) 10/24/20 10/24/20 10/24/20 Range/Units 22:25 22:25 22:25 WBC 10.11 (4.8-10.8) K/uL RBC 3.97 L (4.7-6.1) M/uL Hgb 9.9 L (14.0-18.0) g/dL POC Hgb (14.0-18.0) g/dl Hct 31.1 L (42-52) % POC Hct (42-52) % MCV 78.3 L (80-100) fL MCH 24.9 L (25-34) pg MCHC 31.8 L (32-36) g/dL RDW Std Deviation 49.3 H (36.4-46.3) fL RDW Coeff of Noam 17.2 H (11.5-14.5) % Plt Count 156 (130-400) K/uL MPV 10.8 H (7.4-10.4) fL Immature Gran % (Auto) 1.2 % Neut % (Auto) 72.2 % Lymph % (Auto) 16.3 % [place] % (Auto) 9.8 % Eos % (Auto) 0.1 % Baso % (Auto) 0.4 % Neut # (Auto) 7.30 H (1.4-6.5) K/uL Lymph # (Auto) 1.65 (1.2-3.4) K/uL [place] # (Auto) 0.99 H (0.11-0.59) K/uL Eos # (Auto) 0.01 (0-0.5) K/uL Baso # (Auto) 0.04 (0-0.2) K/uL Immature Gran # (Auto) 0.12 H (0.00-0.02) K/uL Absolute Nucleated RBC 0.03 H (0-0) K/uL Nucleated RBC % (auto) 0.3 % ESR (0-14) mm/hr Sample Site POC pH (7.35-7.45) POC pCO2 (35-46) mmHg POC pO2 (80-95) mmHg POC HCO3 (19-24) suellen/L POC Total CO2 (24-31) mmol/L POC Base Excess (-9-1.8) suellen/L ABG pH (Temp Correct) (7.35-7.45) ABG pCO2 (Temp Corrct (35-46) mmHg POC ABG pO2 at Pt Temp POC ABG O2 Sat (90-95) % Alex Test O2 Delivery Device POC O2 Rate POC FiO2 % Tidal Volume PEEP POC Sodium (135-144) mmol/L Sodium 131 L (136-145) mmol/L POC Potassium (3.3-5.0) mmol/L Potassium 3.8 (3.5-5.1) mmol/L Chloride 94 L (98-107) mmol/L Carbon Dioxide 20 L (21-32) mmol/L Anion Gap 17.0 H (3-11) BUN 45 H (7-18) mg/dl Creatinine 2.53 H D (0.6-1.4) mg/dl POC Creatinine (0.6-1.3) mg/dl Est Cr Clr Drug Dosing 40.8 ml/min Est GFR ( Amer) 30.1 Est GFR (Non-Af Amer) 26.0 BUN/Creatinine Ratio 17.7 (10-20) Glucose 147 H (70-99) mg/dl Lactate (0.4-2.0) mmol/L Calcium 9.3 (8.5-10.1) mg/dl Ionized Calcium (1.12-1.32) mmol/L Phosphorus 6.4 H D (2.5-4.9) mg/dl Magnesium 2.4 (1.8-2.4) mg/dl Total Bilirubin 1.5 H (0.2-1) mg/dl Direct Bilirubin 1.1 H (0-0.2) mg/dl AST 96 H (15-37) U/L ALT 42 (12-78) U/L Alkaline Phosphatase 95 (45-117) U/L Troponin I 0.247 H* (0-0.045) ng/ml C-Reactive Protein (0-0.29) mg/dl Total Protein 7.6 (6.4-8.2) gm/dl Albumin 3.0 L (3.4-5.0) gm/dl Procalcitonin 3.18 H (0-0.5) ng/ml Nasal Screen MRSA (PCR) (Negative) 10/24/20 Range/Units 22:24 WBC (4.8-10.8) K/uL RBC (4.7-6.1) M/uL Hgb (14.0-18.0) g/dL POC Hgb (14.0-18.0) g/dl Hct (42-52) % POC Hct (42-52) % MCV (80-100) fL MCH (25-34) pg MCHC (32-36) g/dL RDW Std Deviation (36.4-46.3) fL RDW Coeff of Noam (11.5-14.5) % Plt Count (130-400) K/uL MPV (7.4-10.4) fL Immature Gran % (Auto) % Neut % (Auto) % Lymph % (Auto) % [place] % (Auto) % Eos % (Auto) % Baso % (Auto) % Neut # (Auto) (1.4-6.5) K/uL Lymph # (Auto) (1.2-3.4) K/uL [place] # (Auto) (0.11-0.59) K/uL Eos # (Auto) (0-0.5) K/uL Baso # (Auto) (0-0.2) K/uL Immature Gran # (Auto) (0.00-0.02) K/uL Absolute Nucleated RBC (0-0) K/uL Nucleated RBC % (auto) % ESR (0-14) mm/hr Sample Site POC pH (7.35-7.45) POC pCO2 (35-46) mmHg POC pO2 (80-95) mmHg POC HCO3 (19-24) suellen/L POC Total CO2 (24-31) mmol/L POC Base Excess (-9-1.8) suellen/L ABG pH (Temp Correct) (7.35-7.45) ABG pCO2 (Temp Corrct (35-46) mmHg POC ABG pO2 at Pt Temp POC ABG O2 Sat (90-95) % Alex Test O2 Delivery Device POC O2 Rate POC FiO2 % Tidal Volume PEEP POC Sodium (135-144) mmol/L Sodium (136-145) mmol/L POC Potassium (3.3-5.0) mmol/L Potassium (3.5-5.1) mmol/L Chloride (98-107) mmol/L Carbon Dioxide (21-32) mmol/L Anion Gap (3-11) BUN (7-18) mg/dl Creatinine (0.6-1.4) mg/dl POC Creatinine (0.6-1.3) mg/dl Est Cr Clr Drug Dosing ml/min Est GFR ( Amer) Est GFR (Non-Af Amer) BUN/Creatinine Ratio (10-20) Glucose (70-99) mg/dl Lactate 8.1 H* (0.4-2.0) mmol/L Calcium (8.5-10.1) mg/dl Ionized Calcium (1.12-1.32) mmol/L Phosphorus (2.5-4.9) mg/dl Magnesium (1.8-2.4) mg/dl Total Bilirubin (0.2-1) mg/dl Direct Bilirubin (0-0.2) mg/dl AST (15-37) U/L ALT (12-78) U/L Alkaline Phosphatase (45-117) U/L Troponin I (0-0.045) ng/ml C-Reactive Protein (0-0.29) mg/dl Total Protein (6.4-8.2) gm/dl Albumin (3.4-5.0) gm/dl Procalcitonin (0-0.5) ng/ml Nasal Screen MRSA (PCR) (Negative) Medications Administered Current Inpatient Medications Fentanyl Citrate (Fentanyl Bolus From Bag) 50 mcg IV Q60M PRN PRN Reason: Pain or Agitation Stop: 11/07/20 22:29 Gabapentin (Gabapentin 250 Mg/5 Ml 470 Ml Btl) 600 mg NG Q12H [facility] Stop: 10/26/20 00:01 Last Admin: 10/25/20 11:07 Dose: 600 mg Documented by: Gabapentin (Gabapentin 250 Mg/5 Ml 470 Ml Btl) 600 mg NG Q24H [facility] Stop: 10/27/20 00:01 Guaifenesin (Guaifenesin 600 Mg Tabcr) 600 mg PO Q12 [facility] Stop: 11/22/20 20:59 Last Admin: 10/25/20 08:27 Dose: 600 mg Documented by: Lorazepam (Ativan) 1 mg in 2 mls @ 2 mls/min IV UD PRN; Protocol PRN Reason: EtOH Withdrawl AWSS Score 6,7 Stop: 11/22/20 01:12 Thiamine HCl 100 mg/ Syringe 10 mls @ 2 mls/min IV QAM [facility] Stop: 11/22/20 08:59 Last Admin: 10/25/20 08:26 Dose: 2 mls/min Documented by: Folic Acid 1 mg/ Syringe 10 mls @ 5 mls/min IV QAM [facility] Stop: 11/22/20 08:59 Last Admin: 10/25/20 08:26 Dose: 5 mls/min Documented by: Lorazepam (Ativan) 2 mg in 4 mls @ 4 mls/min IV UD PRN; Protocol PRN Reason: EtOH Withdrawl AWSS Score 8,9 Stop: 11/22/20 01:12 Last Admin: 10/24/20 21:21 Dose: 4 mls/min Documented by: Lorazepam (Ativan) 3 mg in 6 mls @ 4 mls/min IV ONCE PRN; Protocol PRN Reason: EtOH Withdrawl AWSS Score >=10 Stop: 11/22/20 01:12 Doxycycline Hyclate 100 mg/ (Dextrose) 110 mls @ 50 mls/hr IV Q12H [facility] Stop: 10/30/20 08:59 Last Infusion: 10/25/20 13:55 Dose: Infused Documented by: Furosemide 40 mg/ Syringe 4 mls @ 4 mls/min IV DAILY [facility] Stop: 11/22/20 08:59 Last Admin: 10/23/20 08:36 Dose: 4 mls/min Documented by: Piperacillin Sod/Tazobactam (Sod 4.5 gm/ Dextrose) 120 mls @ 30 mls/hr IV Q8H [facility]; Protocol Stop: 10/31/20 00:00 Last Admin: 10/25/20 15:34 Dose: 30 mls/hr Documented by: Parenteral Electrolytes (Normosol-R) 1,000 mls @ 80 mls/hr IV .[id number] [facility] Stop: 11/23/20 22:29 Last Admin: 10/25/20 14:03 Dose: 80 mls/hr Documented by: Midazolam HCl (Versed) 125 mg in 250 mls @ 8 mls/hr IV .[id number] PRN; Protocol PRN Reason: Agitation Stop: 11/23/20 22:29 Last Titration: 10/25/20 13:55 Dose: 4 mg/hr, 8 mls/hr Documented by: Fentanyl Citrate (Fentanyl Drip) 1,250 mcg in 250 mls @ 30 mls/hr IV .Q8H20M [facility]; Protocol Stop: 11/07/20 22:29 Last Admin: 10/25/20 16:59 Dose: 150 mcg/hr, 30 mls/hr Documented by: Norepinephrine Bitartrate (Levophed/D5w) 8 mg in 508 mls @ 23.089 mls/hr IV .Q22H1M [facility]; Protocol Stop: 11/23/20 23:44 Last Titration: 10/25/20 13:55 Dose: Infused Documented by: Cisatracurium Besylate 40 mg/ (Sodium Chloride) 100 mls @ 18.18 mls/hr IV .Q5H31M [facility]; Protocol Stop: 11/24/20 02:59 Last Admin: 10/25/20 15:34 Dose: 1 mcg/kg/min, 18.2 mls/hr Documented by: Pantoprazole Sodium 40 mg/ (Syringe) 10 mls @ 5 mls/min IV DAILY@1100 [facility] Stop: 11/24/20 10:59 Last Admin: 10/25/20 08:26 Dose: 5 mls/min Documented by: Dopamine HCl/Dextrose (Dopamine / D5w) 400 mg in 250 mls @ 10.178 mls/hr IV .Q24H [facility]; Protocol Stop: 11/24/20 11:44 Last Titration: 10/25/20 16:31 Dose: 2 mcg/kg/min, 10.2 mls/hr Documented by: Heparin Sodium/Dextrose (Heparin Sodium/Dextrose) 25,000 units in 500 mls @ 37 mls/hr IV .[id number] [facility]; Protocol Stop: 11/24/20 13:29 Last Admin: 10/25/20 14:03 Dose: 1,850 units/hr, 37 mls/hr Documented by: Potassium Chloride (K Jesus / Wtr) 20 meq in 100 mls @ 50 mls/hr IV Q2H [facility] Stop: 10/25/20 19:59 Last Admin: 10/25/20 17:06 Dose: 50 mls/hr Documented by: Metoprolol Tartrate (Metoprolol Tartrate 1 Mg/Ml Vial) 5 mg IV Q6 PRN PRN Reason: Hypertension Stop: 11/22/20 01:12 Midazolam HCl (Midazolam Bolus From Bag) 2 mg IV Q60M PRN PRN Reason: Sedation Stop: 11/23/20 22:29 Miscellaneous ([facility] Protocol For Hyperglycemia) 1 ea N/A PRN PRN; Protocol PRN Reason: Hyperglycemia Protocol Stop: 10/26/20 22:23 Miscellaneous Information (Piperacill/Tazobac Consult Active) 1 ea N/A UD PRN PRN Reason: Consult Stop: 11/22/20 18:26 Nitroglycerin (Nitroglycerin Sl 0.4 Mg/Tab Tab) 0.4 mg SL UD PRN PRN Reason: Chest Pain Stop: 11/22/20 01:12 (1) Pneumonia Pneumonia type: due to unspecified organism Laterality: right Lung location: lower lobe of lung Qualified Code(s): J18.9 - Pneumonia, unspecified organism
[2020-10-25 07:54] LABS: BUN Creatinine Ratio 18.2 (10-20); Calcium 8.8 mg/dl (8.5-10.1); Creatinine Clr Calc Pharmacy 39.3 ml/min; Est GFR (African American) 26.9; Est GFR (Non-African American) 23.2; Phosphorus 6.4 mg/dl (2.5-4.9)
--- NOTE | 2020-10-25 08:06 | Critical Care Progress Note ---
Date of Service October 25, 2020 Assessment & Plan (1) Cardiac arrest: Reason critically ill: 5-year-old male status post in-hospital cardiac arrest with ROSC requiring close hemodynamic monitoring and initiation of therapeutic hypothermia protocol Neuro: -[facility] ICU: Unable to access -EEG demonstrating severe background suppression consistent with severe nonspecific encephalopathy -Alcohol abuse: -Continue sedation with Versed -CT head demonstrating no acute intracranial abnormality -Continue sedation with fentanyl, Versed, Nimbex Cardiac/Vascular: -In-hospital cardiac arrest with ROSC -Estimated downtime approximately 10 minutes -Continue therapeutic hypothermia protocol -A. fib with RVR -Currently in sinus rhythm -Continue amiodarone -Cardiology consulted -Continue to monitor on telemetry Respiratory: -Respiratory failure -Secondary to cardiac arrest, intubated during code -Following completion of therapeutic hypothermia protocol will wean ventilator settings as tolerated GI/Nutrition: -N.p.o. -Continue Protonix Renal/Lytes: -Acute kidney injury superimposed on chronic kidney disease -Continue IV Normosol@80 mL/hr -Continue to monitor BMPs, Mg, Phos, and iCal q4h : -Brock in place -Continue to monitor strict I's and O's ENDO: -History of type 2 diabetes -Continue management per ICU glycemic protocol HEME: -Hgb stable at 9.3 this a.m. -Continue to monitor ID: -Continue current regimen of doxycycline and Zosyn -Blood cultures x2 pending Lines/IV Access: -PIV x2 -Right IJ DVT Prophylaxis: -Heparin drip as recommended by cardiology (2) Respiratory failure: (3) Acute on chronic renal failure: (4) Chronic diastolic heart failure: (5) Acute diastolic (congestive) heart failure: (6) Pneumonia: (7) Shortness of breath: (8) Depression: (9) Alcohol abuse: Admission and Anticipated Discharge Date Admission Date: October 23, 2020 Supervising Physician Co-Signing Physician Notes Dr. May was resident physician during care of patient. I separately evaluated patient for quispe portions of the history and the exam. I was present during the critical portion of medical decision making, and I discussed the case with the resident. I generally agree with the findings and plan. Continue hypothermia protocol Subjective Patient remains intubated and sedated this morning. Following weaning of Nimbex had increasing vent dyssynchrony with periods of apparent apnea. Following return of Nimbex saturations will be able to be maintained appropriately. Patient to continue with therapeutic hypothermia protocol at this time. Review of Systems Review of Systems: Unobtainable due to endotracheal tube and Unobtainable due to reduced consciousness Physical Exam Constitutional: + obese, + disheveled and + mechanically ventilated Eyes: PERRL, conjunctivae normal, anicteric sclerae Respiratory: symmetric chest movement Auscultation: + rhonchi; no crackles, no rales and no wheezes Cardiovascular: Rate/Rhythm: regular rate and regular rhythm Heart Sounds: no gallop, no murmur and no cardiac rub Vessels: no JVD Extremities: + edema Gastrointestinal (Abdomen): Inspection/Auscultation: abdomen normal to inspection and normal bowel sounds; abdomen not distended and no abdominal edema Skin: Diffuse patches with scaling to bilateral lower extremities with venous stasis changes bilateral lower extremities Psychiatric: Orientation: + not alert Apperance: + disheveled Results & Data Results & Data ([facility]) Vital Signs (Past 12 Hours) Vital Signs Temp Temp Pulse Pulse Resp BP BP 10/25/20 06:03 35.2 C L 54 L 154/97 H 10/25/20 06:00 35.1 C L 51 L 18 154/97 H 10/25/20 05:33 35.7 C L 60 152/121 H 10/25/20 05:03 62 140/104 H 10/25/20 05:00 36.2 C L 68 18 153/75 H 10/25/20 04:51 62 136/93 10/25/20 04:47 38 C H 77 22 99/74 L 10/25/20 04:34 75 10/25/20 04:01 72 99/74 L 10/25/20 03:51 77 90/73 L 10/25/20 03:47 38.6 C H 72 38 H 99/84 L 10/25/20 03:41 71 108/77 10/25/20 03:31 70 86/63 L 10/25/20 03:21 66 96/71 L 10/25/20 03:11 68 100/64 10/25/20 03:01 38.6 C H 75 99/84 L 10/25/20 02:51 74 102/77 10/25/20 02:50 73 18 10/25/20 02:41 78 98/71 L 10/25/20 02:31 72 105/75 10/25/20 02:21 67 106/77 10/25/20 02:11 71 98/66 L 10/25/20 02:01 38.6 C H 82 97/75 L 10/25/20 01:51 66 102/60 10/25/20 01:41 78 95/76 L 10/25/20 01:31 81 99/72 L 10/25/20 01:21 82 87/71 L 10/25/20 01:11 75 104/75 10/25/20 01:01 80 103/89 10/25/20 00:51 78 100/73 10/25/20 00:41 87 94/66 L 10/25/20 00:31 85 99/85 L 10/25/20 00:21 79 91/63 L 10/25/20 00:11 85 87/67 L 10/25/20 00:01 84 98/66 L 10/24/20 23:50 84 25 H 95/56 L 10/24/20 23:41 90 32 H 83/63 L 10/24/20 23:31 97 H 23 82/62 L 10/24/20 22:39 109 H 124/101 H 10/24/20 20:53 37.0 C 116 H 24 152/99 H 10/24/20 20:20 80 25 H BP Pulse Ox 10/25/20 06:03 97 10/25/20 06:00 145/81 H 99 10/25/20 05:33 99 10/25/20 05:03 93 10/25/20 05:00 140/104 H 97 10/25/20 04:51 100 10/25/20 04:47 114/51 L 97 10/25/20 04:34 96 10/25/20 04:01 10/25/20 03:51 10/25/20 03:47 100 10/25/20 03:41 93 10/25/20 03:31 100 10/25/20 03:21 100 10/25/20 03:11 100 10/25/20 03:01 100 10/25/20 02:51 98 10/25/20 02:50 98 10/25/20 02:41 100 10/25/20 02:31 10/25/20 02:21 10/25/20 02:11 10/25/20 02:01 10/25/20 01:51 98 10/25/20 01:41 100 10/25/20 01:31 100 10/25/20 01:21 100 10/25/20 01:11 100 10/25/20 01:01 100 10/25/20 00:51 99 10/25/20 00:41 99 10/25/20 00:31 99 10/25/20 00:21 98 10/25/20 00:11 100 10/25/20 00:01 98 10/24/20 23:50 98 10/24/20 23:41 98 10/24/20 23:31 98 10/24/20 22:39 89 L 10/24/20 20:53 91 10/24/20 20:20 99 Laboratory Results 10/25/20 10/25/20 10/25/20 Range/Units 20:46 20:25 20:05 WBC (4.8-10.8) K/uL RBC (4.7-6.1) M/uL Hgb (14.0-18.0) g/dL POC Hgb 10.5 L (14.0-18.0) g/dl Hct (42-52) % POC Hct 31 L (42-52) % MCV (80-100) fL MCH (25-34) pg MCHC (32-36) g/dL RDW Std Deviation (36.4-46.3) fL RDW Coeff of Noam (11.5-14.5) % Plt Count (130-400) K/uL MPV (7.4-10.4) fL Immature Gran % (Auto) % Neut % (Auto) % Lymph % (Auto) % [place] % (Auto) % Eos % (Auto) % Baso % (Auto) % Neut # (Auto) (1.4-6.5) K/uL Lymph # (Auto) (1.2-3.4) K/uL [place] # (Auto) (0.11-0.59) K/uL Eos # (Auto) (0-0.5) K/uL Baso # (Auto) (0-0.2) K/uL Immature Gran # (Auto) (0.00-0.02) K/uL Absolute Nucleated RBC (0-0) K/uL Nucleated RBC % (auto) % ESR (0-14) mm/hr APTT 121.8 H* (21.0-31.0) Seconds PTT Ratio 4.6 Sample Site Art Line POC pH 7.46 H (7.35-7.45) POC pCO2 31 L (35-46) mmHg POC pO2 89 (80-95) mmHg POC HCO3 22 (19-24) suellen/L POC Total CO2 23 L (24-31) mmol/L POC Base Excess -2.0 (-9-1.8) suellen/L ABG pH (Temp Correct) 7.512 H* (7.35-7.45) ABG pCO2 (Temp Corrct 26 L (35-46) mmHg POC ABG pO2 at Pt Temp 72 POC ABG O2 Sat 97.0 H (90-95) % Alex Test NA O2 Delivery Device Ventilator POC O2 Rate 18 Minute Ventilation 9.9 POC FiO2 30 % Tidal Volume 550 PEEP 8 POC Sodium 133 L (135-144) mmol/L Sodium (136-145) mmol/L POC Potassium 3.6 (3.3-5.0) mmol/L Potassium (3.5-5.1) mmol/L Chloride (98-107) mmol/L Carbon Dioxide (21-32) mmol/L Anion Gap (3-11) BUN (7-18) mg/dl Creatinine (0.6-1.4) mg/dl POC Creatinine (0.6-1.3) mg/dl Est Cr Clr Drug Dosing ml/min Est GFR ( Amer) Est GFR (Non-Af Amer) BUN/Creatinine Ratio (10-20) Glucose (70-99) mg/dl Lactate (0.4-2.0) mmol/L Calcium (8.5-10.1) mg/dl Ionized Calcium 1.04 L (1.12-1.32) mmol/L Phosphorus (2.5-4.9) mg/dl Magnesium (1.8-2.4) mg/dl Total Bilirubin (0.2-1) mg/dl Direct Bilirubin (0-0.2) mg/dl AST (15-37) U/L ALT (12-78) U/L Alkaline Phosphatase (45-117) U/L Troponin I (0-0.045) ng/ml C-Reactive Protein (0-0.29) mg/dl Total Protein (6.4-8.2) gm/dl Albumin (3.4-5.0) gm/dl Procalcitonin (0-0.5) ng/ml Nasal Screen MRSA (PCR) (Negative) 10/25/20 10/25/20 10/25/20 Range/Units 20:05 20:05 20:05 WBC (4.8-10.8) K/uL RBC (4.7-6.1) M/uL Hgb (14.0-18.0) g/dL POC Hgb (14.0-18.0) g/dl Hct (42-52) % POC Hct (42-52) % MCV (80-100) fL MCH (25-34) pg MCHC (32-36) g/dL RDW Std Deviation (36.4-46.3) fL RDW Coeff of Noam (11.5-14.5) % Plt Count (130-400) K/uL MPV (7.4-10.4) fL Immature Gran % (Auto) % Neut % (Auto) % Lymph % (Auto) % [place] % (Auto) % Eos % (Auto) % Baso % (Auto) % Neut # (Auto) (1.4-6.5) K/uL Lymph # (Auto) (1.2-3.4) K/uL [place] # (Auto) (0.11-0.59) K/uL Eos # (Auto) (0-0.5) K/uL Baso # (Auto) (0-0.2) K/uL Immature Gran # (Auto) (0.00-0.02) K/uL Absolute Nucleated RBC (0-0) K/uL Nucleated RBC % (auto) % ESR (0-14) mm/hr APTT (21.0-31.0) Seconds PTT Ratio Sample Site POC pH (7.35-7.45) POC pCO2 (35-46) mmHg POC pO2 (80-95) mmHg POC HCO3 (19-24) suellen/L POC Total CO2 (24-31) mmol/L POC Base Excess (-9-1.8) suellen/L ABG pH (Temp Correct) (7.35-7.45) ABG pCO2 (Temp Corrct (35-46) mmHg POC ABG pO2 at Pt Temp POC ABG O2 Sat (90-95) % Alex Test O2 Delivery Device POC O2 Rate Minute Ventilation POC FiO2 % Tidal Volume PEEP POC Sodium (135-144) mmol/L Sodium 133 L (136-145) mmol/L POC Potassium (3.3-5.0) mmol/L Potassium 3.6 (3.5-5.1) mmol/L Chloride 100 (98-107) mmol/L Carbon Dioxide 22 (21-32) mmol/L Anion Gap 11.0 (3-11) BUN 48 H (7-18) mg/dl Creatinine 2.04 H D (0.6-1.4) mg/dl POC Creatinine (0.6-1.3) mg/dl Est Cr Clr Drug Dosing 53.6 ml/min Est GFR ( Amer) 39.0 Est GFR (Non-Af Amer) 33.7 BUN/Creatinine Ratio 23.6 H (10-20) Glucose 163 H (70-99) mg/dl Lactate (0.4-2.0) mmol/L Calcium 8.2 L (8.5-10.1) mg/dl Ionized Calcium Cancelled (1.12-1.32) mmol/L Phosphorus 4.2 D (2.5-4.9) mg/dl Magnesium 2.3 (1.8-2.4) mg/dl Total Bilirubin (0.2-1) mg/dl Direct Bilirubin (0-0.2) mg/dl AST (15-37) U/L ALT (12-78) U/L Alkaline Phosphatase (45-117) U/L Troponin I 0.136 H* (0-0.045) ng/ml C-Reactive Protein (0-0.29) mg/dl Total Protein (6.4-8.2) gm/dl Albumin (3.4-5.0) gm/dl Procalcitonin (0-0.5) ng/ml Nasal Screen MRSA (PCR) (Negative) 10/25/20 10/25/20 10/25/20 Range/Units 20:05 15:04 14:43 WBC (4.8-10.8) K/uL RBC (4.7-6.1) M/uL Hgb 9.8 L (14.0-18.0) g/dL POC Hgb 9.9 L (14.0-18.0) g/dl Hct 30.5 L (42-52) % POC Hct 29 L (42-52) % MCV (80-100) fL MCH (25-34) pg MCHC (32-36) g/dL RDW Std Deviation (36.4-46.3) fL RDW Coeff of Noam (11.5-14.5) % Plt Count (130-400) K/uL MPV (7.4-10.4) fL Immature Gran % (Auto) % Neut % (Auto) % Lymph % (Auto) % [place] % (Auto) % Eos % (Auto) % Baso % (Auto) % Neut # (Auto) (1.4-6.5) K/uL Lymph # (Auto) (1.2-3.4) K/uL [place] # (Auto) (0.11-0.59) K/uL Eos # (Auto) (0-0.5) K/uL Baso # (Auto) (0-0.2) K/uL Immature Gran # (Auto) (0.00-0.02) K/uL Absolute Nucleated RBC (0-0) K/uL Nucleated RBC % (auto) % ESR (0-14) mm/hr APTT (21.0-31.0) Seconds PTT Ratio Sample Site Art Line POC pH 7.42 (7.35-7.45) POC pCO2 33 L (35-46) mmHg POC pO2 110 H (80-95) mmHg POC HCO3 22 (19-24) suellen/L POC Total CO2 23 L (24-31) mmol/L POC Base Excess -3.0 (-9-1.8) suellen/L ABG pH (Temp Correct) 7.475 H (7.35-7.45) ABG pCO2 (Temp Corrct 28 L (35-46) mmHg POC ABG pO2 at Pt Temp 90 POC ABG O2 Sat 98.0 H (90-95) % Alex Test NA O2 Delivery Device Ventilator POC O2 Rate 18 Minute Ventilation POC FiO2 30 % Tidal Volume 550 PEEP 8 POC Sodium 131 L (135-144) mmol/L Sodium (136-145) mmol/L POC Potassium 3.3 (3.3-5.0) mmol/L Potassium (3.5-5.1) mmol/L Chloride (98-107) mmol/L Carbon Dioxide (21-32) mmol/L Anion Gap (3-11) BUN (7-18) mg/dl Creatinine (0.6-1.4) mg/dl POC Creatinine (0.6-1.3) mg/dl Est Cr Clr Drug Dosing ml/min Est GFR ( Amer) Est GFR (Non-Af Amer) BUN/Creatinine Ratio (10-20) Glucose (70-99) mg/dl Lactate (0.4-2.0) mmol/L Calcium (8.5-10.1) mg/dl Ionized Calcium (1.12-1.32) mmol/L Phosphorus (2.5-4.9) mg/dl Magnesium 2.5 H (1.8-2.4) mg/dl Total Bilirubin (0.2-1) mg/dl Direct Bilirubin (0-0.2) mg/dl AST (15-37) U/L ALT (12-78) U/L Alkaline Phosphatase (45-117) U/L Troponin I (0-0.045) ng/ml C-Reactive Protein (0-0.29) mg/dl Total Protein (6.4-8.2) gm/dl Albumin (3.4-5.0) gm/dl Procalcitonin (0-0.5) ng/ml Nasal Screen MRSA (PCR) (Negative) 10/25/20 10/25/20 10/25/20 Range/Units 14:43 14:43 14:43 WBC (4.8-10.8) K/uL RBC (4.7-6.1) M/uL Hgb 9.2 L (14.0-18.0) g/dL POC Hgb (14.0-18.0) g/dl Hct 29.0 L (42-52) % POC Hct (42-52) % MCV (80-100) fL MCH (25-34) pg MCHC (32-36) g/dL RDW Std Deviation (36.4-46.3) fL RDW Coeff of Noam (11.5-14.5) % Plt Count (130-400) K/uL MPV (7.4-10.4) fL Immature Gran % (Auto) % Neut % (Auto) % Lymph % (Auto) % [place] % (Auto) % Eos % (Auto) % Baso % (Auto) % Neut # (Auto) (1.4-6.5) K/uL Lymph # (Auto) (1.2-3.4) K/uL [place] # (Auto) (0.11-0.59) K/uL Eos # (Auto) (0-0.5) K/uL Baso # (Auto) (0-0.2) K/uL Immature Gran # (Auto) (0.00-0.02) K/uL Absolute Nucleated RBC (0-0) K/uL Nucleated RBC % (auto) % ESR (0-14) mm/hr APTT (21.0-31.0) Seconds PTT Ratio Sample Site POC pH (7.35-7.45) POC pCO2 (35-46) mmHg POC pO2 (80-95) mmHg POC HCO3 (19-24) suellen/L POC Total CO2 (24-31) mmol/L POC Base Excess (-9-1.8) suellen/L ABG pH (Temp Correct) (7.35-7.45) ABG pCO2 (Temp Corrct (35-46) mmHg POC ABG pO2 at Pt Temp POC ABG O2 Sat (90-95) % Alex Test O2 Delivery Device POC O2 Rate Minute Ventilation POC FiO2 % Tidal Volume PEEP POC Sodium (135-144) mmol/L Sodium 133 L (136-145) mmol/L POC Potassium (3.3-5.0) mmol/L Potassium 3.5 (3.5-5.1) mmol/L Chloride 98 (98-107) mmol/L Carbon Dioxide 23 (21-32) mmol/L Anion Gap 12.0 H (3-11) BUN 54 H (7-18) mg/dl Creatinine 2.45 H (0.6-1.4) mg/dl POC Creatinine (0.6-1.3) mg/dl Est Cr Clr Drug Dosing 44.6 ml/min Est GFR ( Amer) 31.3 Est GFR (Non-Af Amer) 27.0 BUN/Creatinine Ratio 22.0 H (10-20) Glucose 183 H (70-99) mg/dl Lactate (0.4-2.0) mmol/L Calcium 7.9 L (8.5-10.1) mg/dl Ionized Calcium 1.03 L (1.12-1.32) mmol/L Phosphorus 6.4 H (2.5-4.9) mg/dl Magnesium (1.8-2.4) mg/dl Total Bilirubin (0.2-1) mg/dl Direct Bilirubin (0-0.2) mg/dl AST (15-37) U/L ALT (12-78) U/L Alkaline Phosphatase (45-117) U/L Troponin I (0-0.045) ng/ml C-Reactive Protein (0-0.29) mg/dl Total Protein (6.4-8.2) gm/dl Albumin (3.4-5.0) gm/dl Procalcitonin (0-0.5) ng/ml Nasal Screen MRSA (PCR) (Negative) 10/25/20 10/25/20 10/25/20 Range/Units 12:18 10:45 10:45 WBC (4.8-10.8) K/uL RBC (4.7-6.1) M/uL Hgb (14.0-18.0) g/dL POC Hgb 12.9 L (14.0-18.0) g/dl Hct (42-52) % POC Hct 38 L (42-52) % MCV (80-100) fL MCH (25-34) pg MCHC (32-36) g/dL RDW Std Deviation (36.4-46.3) fL RDW Coeff of Noam (11.5-14.5) % Plt Count (130-400) K/uL MPV (7.4-10.4) fL Immature Gran % (Auto) % Neut % (Auto) % Lymph % (Auto) % [place] % (Auto) % Eos % (Auto) % Baso % (Auto) % Neut # (Auto) (1.4-6.5) K/uL Lymph # (Auto) (1.2-3.4) K/uL [place] # (Auto) (0.11-0.59) K/uL Eos # (Auto) (0-0.5) K/uL Baso # (Auto) (0-0.2) K/uL Immature Gran # (Auto) (0.00-0.02) K/uL Absolute Nucleated RBC (0-0) K/uL Nucleated RBC % (auto) % ESR (0-14) mm/hr APTT (21.0-31.0) Seconds PTT Ratio Sample Site Art Line POC pH 7.06 L* (7.35-7.45) POC pCO2 79 H (35-46) mmHg POC pO2 133 H (80-95) mmHg POC HCO3 23 (19-24) suellen/L POC Total CO2 25 (24-31) mmol/L POC Base Excess -8.0 (-9-1.8) sulelen/L ABG pH (Temp Correct) 7.098 L* (7.35-7.45) ABG pCO2 (Temp Corrct 70 H (35-46) mmHg POC ABG pO2 at Pt Temp 118 POC ABG O2 Sat 97.0 H (90-95) % Alex Test NA O2 Delivery Device Ventilator POC O2 Rate 18 Minute Ventilation POC FiO2 100 % Tidal Volume 550 PEEP 8 POC Sodium 130 L (135-144) mmol/L Sodium (136-145) mmol/L POC Potassium 4.3 (3.3-5.0) mmol/L Potassium (3.5-5.1) mmol/L Chloride (98-107) mmol/L Carbon Dioxide (21-32) mmol/L Anion Gap (3-11) BUN (7-18) mg/dl Creatinine (0.6-1.4) mg/dl POC Creatinine (0.6-1.3) mg/dl Est Cr Clr Drug Dosing ml/min Est GFR ( Amer) Est GFR (Non-Af Amer) BUN/Creatinine Ratio (10-20) Glucose (70-99) mg/dl Lactate (0.4-2.0) mmol/L Calcium (8.5-10.1) mg/dl Ionized Calcium 1.01 L (1.12-1.32) mmol/L Phosphorus (2.5-4.9) mg/dl Magnesium 2.5 H (1.8-2.4) mg/dl Total Bilirubin (0.2-1) mg/dl Direct Bilirubin (0-0.2) mg/dl AST (15-37) U/L ALT (12-78) U/L Alkaline Phosphatase (45-117) U/L Troponin I (0-0.045) ng/ml C-Reactive Protein (0-0.29) mg/dl Total Protein (6.4-8.2) gm/dl Albumin (3.4-5.0) gm/dl Procalcitonin (0-0.5) ng/ml Nasal Screen MRSA (PCR) (Negative) 10/25/20 10/25/20 10/25/20 Range/Units 10:45 10:45 07:15 WBC (4.8-10.8) K/uL RBC (4.7-6.1) M/uL Hgb 8.4 L (14.0-18.0) g/dL POC Hgb (14.0-18.0) g/dl Hct 26.5 L (42-52) % POC Hct (42-52) % MCV (80-100) fL MCH (25-34) pg MCHC (32-36) g/dL RDW Std Deviation (36.4-46.3) fL RDW Coeff of Noam (11.5-14.5) % Plt Count (130-400) K/uL MPV (7.4-10.4) fL Immature Gran % (Auto) % Neut % (Auto) % Lymph % (Auto) % [place] % (Auto) % Eos % (Auto) % Baso % (Auto) % Neut # (Auto) (1.4-6.5) K/uL Lymph # (Auto) (1.2-3.4) K/uL [place] # (Auto) (0.11-0.59) K/uL Eos # (Auto) (0-0.5) K/uL Baso # (Auto) (0-0.2) K/uL Immature Gran # (Auto) (0.00-0.02) K/uL Absolute Nucleated RBC (0-0) K/uL Nucleated RBC % (auto) % ESR (0-14) mm/hr APTT (21.0-31.0) Seconds PTT Ratio Sample Site POC pH (7.35-7.45) POC pCO2 (35-46) mmHg POC pO2 (80-95) mmHg POC HCO3 (19-24) suellen/L POC Total CO2 (24-31) mmol/L POC Base Excess (-9-1.8) suellen/L ABG pH (Temp Correct) (7.35-7.45) ABG pCO2 (Temp Corrct (35-46) mmHg POC ABG pO2 at Pt Temp POC ABG O2 Sat (90-95) % Alex Test O2 Delivery Device POC O2 Rate Minute Ventilation POC FiO2 % Tidal Volume PEEP POC Sodium (135-144) mmol/L Sodium 131 L (136-145) mmol/L POC Potassium (3.3-5.0) mmol/L Potassium 3.5 (3.5-5.1) mmol/L Chloride 99 (98-107) mmol/L Carbon Dioxide 23 (21-32) mmol/L Anion Gap 9.0 (3-11) BUN 55 H (7-18) mg/dl Creatinine 2.54 H (0.6-1.4) mg/dl POC Creatinine (0.6-1.3) mg/dl Est Cr Clr Drug Dosing 43.0 ml/min Est GFR ( Amer) 29.9 Est GFR (Non-Af Amer) 25.8 BUN/Creatinine Ratio 21.7 H (10-20) Glucose 172 H (70-99) mg/dl Lactate (0.4-2.0) mmol/L Calcium 7.9 L (8.5-10.1) mg/dl Ionized Calcium (1.12-1.32) mmol/L Phosphorus 5.7 H (2.5-4.9) mg/dl Magnesium 2.6 H (1.8-2.4) mg/dl Total Bilirubin (0.2-1) mg/dl Direct Bilirubin (0-0.2) mg/dl AST (15-37) U/L ALT (12-78) U/L Alkaline Phosphatase (45-117) U/L Troponin I 0.304 H* (0-0.045) ng/ml C-Reactive Protein (0-0.29) mg/dl Total Protein (6.4-8.2) gm/dl Albumin (3.4-5.0) gm/dl Procalcitonin (0-0.5) ng/ml Nasal Screen MRSA (PCR) (Negative) 10/25/20 10/25/20 10/25/20 Range/Units 07:15 07:15 07:15 WBC (4.8-10.8) K/uL RBC (4.7-6.1) M/uL Hgb 9.3 L (14.0-18.0) g/dL POC Hgb (14.0-18.0) g/dl Hct 29.4 L (42-52) % POC Hct (42-52) % MCV (80-100) fL MCH (25-34) pg MCHC (32-36) g/dL RDW Std Deviation (36.4-46.3) fL RDW Coeff of Noam (11.5-14.5) % Plt Count (130-400) K/uL MPV (7.4-10.4) fL Immature Gran % (Auto) % Neut % (Auto) % Lymph % (Auto) % [place] % (Auto) % Eos % (Auto) % Baso % (Auto) % Neut # (Auto) (1.4-6.5) K/uL Lymph # (Auto) (1.2-3.4) K/uL [place] # (Auto) (0.11-0.59) K/uL Eos # (Auto) (0-0.5) K/uL Baso # (Auto) (0-0.2) K/uL Immature Gran # (Auto) (0.00-0.02) K/uL Absolute Nucleated RBC (0-0) K/uL Nucleated RBC % (auto) % ESR (0-14) mm/hr APTT (21.0-31.0) Seconds PTT Ratio Sample Site POC pH (7.35-7.45) POC pCO2 (35-46) mmHg POC pO2 (80-95) mmHg POC HCO3 (19-24) suellen/L POC Total CO2 (24-31) mmol/L POC Base Excess (-9-1.8) suellen/L ABG pH (Temp Correct) (7.35-7.45) ABG pCO2 (Temp Corrct (35-46) mmHg POC ABG pO2 at Pt Temp POC ABG O2 Sat (90-95) % Alex Test O2 Delivery Device POC O2 Rate Minute Ventilation POC FiO2 % Tidal Volume PEEP POC Sodium (135-144) mmol/L Sodium 130 L (136-145) mmol/L POC Potassium (3.3-5.0) mmol/L Potassium 4.0 (3.5-5.1) mmol/L Chloride 95 L (98-107) mmol/L Carbon Dioxide 22 (21-32) mmol/L Anion Gap 13.0 H (3-11) BUN 51 H (7-18) mg/dl Creatinine 2.78 H (0.6-1.4) mg/dl POC Creatinine (0.6-1.3) mg/dl Est Cr Clr Drug Dosing 39.3 ml/min Est GFR ( Amer) 26.9 Est GFR (Non-Af Amer) 23.2 BUN/Creatinine Ratio 18.2 (10-20) Glucose 164 H (70-99) mg/dl Lactate (0.4-2.0) mmol/L Calcium 8.8 (8.5-10.1) mg/dl Ionized Calcium 1.03 L (1.12-1.32) mmol/L Phosphorus 6.4 H (2.5-4.9) mg/dl Magnesium (1.8-2.4) mg/dl Total Bilirubin (0.2-1) mg/dl Direct Bilirubin (0-0.2) mg/dl AST (15-37) U/L ALT (12-78) U/L Alkaline Phosphatase (45-117) U/L Troponin I (0-0.045) ng/ml C-Reactive Protein (0-0.29) mg/dl Total Protein (6.4-8.2) gm/dl Albumin (3.4-5.0) gm/dl Procalcitonin (0-0.5) ng/ml Nasal Screen MRSA (PCR) (Negative) 10/25/20 10/25/20 10/25/20 Range/Units 04:37 04:37 03:42 WBC (4.8-10.8) K/uL RBC (4.7-6.1) M/uL Hgb (14.0-18.0) g/dL POC Hgb 9.9 L (14.0-18.0) g/dl Hct (42-52) % POC Hct 29 L (42-52) % MCV (80-100) fL MCH (25-34) pg MCHC (32-36) g/dL RDW Std Deviation (36.4-46.3) fL RDW Coeff of Noam (11.5-14.5) % Plt Count (130-400) K/uL MPV (7.4-10.4) fL Immature Gran % (Auto) % Neut % (Auto) % Lymph % (Auto) % [place] % (Auto) % Eos % (Auto) % Baso % (Auto) % Neut # (Auto) (1.4-6.5) K/uL Lymph # (Auto) (1.2-3.4) K/uL [place] # (Auto) (0.11-0.59) K/uL Eos # (Auto) (0-0.5) K/uL Baso # (Auto) (0-0.2) K/uL Immature Gran # (Auto) (0.00-0.02) K/uL Absolute Nucleated RBC (0-0) K/uL Nucleated RBC % (auto) % ESR 56 H (0-14) mm/hr APTT (21.0-31.0) Seconds PTT Ratio Sample Site Art Line POC pH 7.39 (7.35-7.45) POC pCO2 35 (35-46) mmHg POC pO2 192 H (80-95) mmHg POC HCO3 21 (19-24) suellen/L POC Total CO2 22 L (24-31) mmol/L POC Base Excess -4.0 (-9-1.8) suellen/L ABG pH (Temp Correct) 7.368 (7.35-7.45) ABG pCO2 (Temp Corrct 37 (35-46) mmHg POC ABG pO2 at Pt Temp 199 POC ABG O2 Sat 100.0 H (90-95) % Alex Test NA O2 Delivery Device Ventilator POC O2 Rate Minute Ventilation POC FiO2 50 % Tidal Volume PEEP 8 POC Sodium 128 L (135-144) mmol/L Sodium 132 L (136-145) mmol/L POC Potassium 4.5 (3.3-5.0) mmol/L Potassium 4.2 (3.5-5.1) mmol/L Chloride 101 (98-107) mmol/L Carbon Dioxide 20 L (21-32) mmol/L Anion Gap 11.0 (3-11) BUN 49 H (7-18) mg/dl Creatinine 2.58 H (0.6-1.4) mg/dl POC Creatinine (0.6-1.3) mg/dl Est Cr Clr Drug Dosing 40.0 ml/min Est GFR ( Amer) 29.4 Est GFR (Non-Af Amer) 25.4 BUN/Creatinine Ratio 18.9 (10-20) Glucose 128 H (70-99) mg/dl Lactate (0.4-2.0) mmol/L Calcium 7.8 L (8.5-10.1) mg/dl Ionized Calcium (1.12-1.32) mmol/L Phosphorus 6.7 H (2.5-4.9) mg/dl Magnesium 2.3 (1.8-2.4) mg/dl Total Bilirubin 1.3 H (0.2-1) mg/dl Direct Bilirubin 1.0 H (0-0.2) mg/dl AST 94 H (15-37) U/L ALT 41 (12-78) U/L Alkaline Phosphatase 84 (45-117) U/L Troponin I (0-0.045) ng/ml C-Reactive Protein 11.90 H (0-0.29) mg/dl Total Protein 6.7 (6.4-8.2) gm/dl Albumin 2.8 L (3.4-5.0) gm/dl Procalcitonin (0-0.5) ng/ml Nasal Screen MRSA (PCR) (Negative) 10/25/20 10/25/20 10/25/20 Range/Units 03:39 03:16 03:16 WBC (4.8-10.8) K/uL RBC (4.7-6.1) M/uL Hgb (14.0-18.0) g/dL POC Hgb (14.0-18.0) g/dl Hct (42-52) % POC Hct (42-52) % MCV (80-100) fL MCH (25-34) pg MCHC (32-36) g/dL RDW Std Deviation (36.4-46.3) fL RDW Coeff of Noam (11.5-14.5) % Plt Count (130-400) K/uL MPV (7.4-10.4) fL Immature Gran % (Auto) % Neut % (Auto) % Lymph % (Auto) % [place] % (Auto) % Eos % (Auto) % Baso % (Auto) % Neut # (Auto) (1.4-6.5) K/uL Lymph # (Auto) (1.2-3.4) K/uL [place] # (Auto) (0.11-0.59) K/uL Eos # (Auto) (0-0.5) K/uL Baso # (Auto) (0-0.2) K/uL Immature Gran # (Auto) (0.00-0.02) K/uL Absolute Nucleated RBC (0-0) K/uL Nucleated RBC % (auto) % ESR (0-14) mm/hr APTT (21.0-31.0) Seconds PTT Ratio Sample Site POC pH (7.35-7.45) POC pCO2 (35-46) mmHg POC pO2 (80-95) mmHg POC HCO3 (19-24) suellen/L POC Total CO2 (24-31) mmol/L POC Base Excess (-9-1.8) suellen/L ABG pH (Temp Correct) (7.35-7.45) ABG pCO2 (Temp Corrct (35-46) mmHg POC ABG pO2 at Pt Temp POC ABG O2 Sat (90-95) % Alex Test O2 Delivery Device POC O2 Rate Minute Ventilation POC FiO2 % Tidal Volume PEEP POC Sodium (135-144) mmol/L Sodium (136-145) mmol/L POC Potassium (3.3-5.0) mmol/L Potassium (3.5-5.1) mmol/L Chloride (98-107) mmol/L Carbon Dioxide (21-32) mmol/L Anion Gap (3-11) BUN (7-18) mg/dl Creatinine (0.6-1.4) mg/dl POC Creatinine 3.0 H (0.6-1.3) mg/dl Est Cr Clr Drug Dosing ml/min Est GFR ( Amer) Est GFR (Non-Af Amer) BUN/Creatinine Ratio (10-20) Glucose (70-99) mg/dl Lactate 2.0 (0.4-2.0) mmol/L Calcium (8.5-10.1) mg/dl Ionized Calcium 1.06 L (1.12-1.32) mmol/L Phosphorus (2.5-4.9) mg/dl Magnesium (1.8-2.4) mg/dl Total Bilirubin (0.2-1) mg/dl Direct Bilirubin (0-0.2) mg/dl AST (15-37) U/L ALT (12-78) U/L Alkaline Phosphatase (45-117) U/L Troponin I (0-0.045) ng/ml C-Reactive Protein (0-0.29) mg/dl Total Protein (6.4-8.2) gm/dl Albumin (3.4-5.0) gm/dl Procalcitonin (0-0.5) ng/ml Nasal Screen MRSA (PCR) (Negative) 10/25/20 10/25/20 10/25/20 Range/Units 03:16 03:16 03:16 WBC 8.79 (4.8-10.8) K/uL RBC 3.62 L (4.7-6.1) M/uL Hgb 8.8 L (14.0-18.0) g/dL POC Hgb (14.0-18.0) g/dl Hct 27.8 L (42-52) % POC Hct (42-52) % MCV 76.8 L (80-100) fL MCH 24.3 L (25-34) pg MCHC 31.7 L (32-36) g/dL RDW Std Deviation 47.9 H (36.4-46.3) fL RDW Coeff of Noam 17.1 H (11.5-14.5) % Plt Count 140 (130-400) K/uL MPV 10.8 H (7.4-10.4) fL Immature Gran % (Auto) 1.4 % Neut % (Auto) 72.6 % Lymph % (Auto) 10.1 % [place] % (Auto) 15.7 % Eos % (Auto) 0.0 % Baso % (Auto) 0.2 % Neut # (Auto) 6.38 (1.4-6.5) K/uL Lymph # (Auto) 0.89 L (1.2-3.4) K/uL [place] # (Auto) 1.38 H (0.11-0.59) K/uL Eos # (Auto) 0.00 (0-0.5) K/uL Baso # (Auto) 0.02 (0-0.2) K/uL Immature Gran # (Auto) 0.12 H (0.00-0.02) K/uL Absolute Nucleated RBC 0.02 H (0-0) K/uL Nucleated RBC % (auto) 0.2 % ESR (0-14) mm/hr APTT (21.0-31.0) Seconds PTT Ratio Sample Site POC pH (7.35-7.45) POC pCO2 (35-46) mmHg POC pO2 (80-95) mmHg POC HCO3 (19-24) suellen/L POC Total CO2 (24-31) mmol/L POC Base Excess (-9-1.8) suellen/L ABG pH (Temp Correct) (7.35-7.45) ABG pCO2 (Temp Corrct (35-46) mmHg POC ABG pO2 at Pt Temp POC ABG O2 Sat (90-95) % Alex Test O2 Delivery Device POC O2 Rate Minute Ventilation POC FiO2 % Tidal Volume PEEP POC Sodium (135-144) mmol/L Sodium 132 L (136-145) mmol/L POC Potassium (3.3-5.0) mmol/L Potassium 4.7 D (3.5-5.1) mmol/L Chloride 97 L (98-107) mmol/L Carbon Dioxide 24 (21-32) mmol/L Anion Gap 11.0 (3-11) BUN 52 H (7-18) mg/dl Creatinine 2.80 H (0.6-1.4) mg/dl POC Creatinine (0.6-1.3) mg/dl Est Cr Clr Drug Dosing 36.8 ml/min Est GFR ( Amer) 26.6 Est GFR (Non-Af Amer) 23.0 BUN/Creatinine Ratio 18.4 (10-20) Glucose 112 H (70-99) mg/dl Lactate (0.4-2.0) mmol/L Calcium 8.5 (8.5-10.1) mg/dl Ionized Calcium (1.12-1.32) mmol/L Phosphorus 6.7 H (2.5-4.9) mg/dl Magnesium (1.8-2.4) mg/dl Total Bilirubin (0.2-1) mg/dl Direct Bilirubin (0-0.2) mg/dl AST (15-37) U/L ALT (12-78) U/L Alkaline Phosphatase (45-117) U/L Troponin I 0.841 H* (0-0.045) ng/ml C-Reactive Protein (0-0.29) mg/dl Total Protein (6.4-8.2) gm/dl Albumin (3.4-5.0) gm/dl Procalcitonin 6.07 H (0-0.5) ng/ml Nasal Screen MRSA (PCR) (Negative) 10/24/20 10/24/20 10/24/20 Range/Units 22:35 22:25 22:25 WBC (4.8-10.8) K/uL RBC (4.7-6.1) M/uL Hgb (14.0-18.0) g/dL POC Hgb (14.0-18.0) g/dl Hct (42-52) % POC Hct (42-52) % MCV (80-100) fL MCH (25-34) pg MCHC (32-36) g/dL RDW Std Deviation (36.4-46.3) fL RDW Coeff of Noam (11.5-14.5) % Plt Count (130-400) K/uL MPV (7.4-10.4) fL Immature Gran % (Auto) % Neut % (Auto) % Lymph % (Auto) % [place] % (Auto) % Eos % (Auto) % Baso % (Auto) % Neut # (Auto) (1.4-6.5) K/uL Lymph # (Auto) (1.2-3.4) K/uL [place] # (Auto) (0.11-0.59) K/uL Eos # (Auto) (0-0.5) K/uL Baso # (Auto) (0-0.2) K/uL Immature Gran # (Auto) (0.00-0.02) K/uL Absolute Nucleated RBC (0-0) K/uL Nucleated RBC % (auto) % ESR (0-14) mm/hr APTT (21.0-31.0) Seconds PTT Ratio Sample Site POC pH (7.35-7.45) POC pCO2 (35-46) mmHg POC pO2 (80-95) mmHg POC HCO3 (19-24) suellen/L POC Total CO2 (24-31) mmol/L POC Base Excess (-9-1.8) suellen/L ABG pH (Temp Correct) (7.35-7.45) ABG pCO2 (Temp Corrct (35-46) mmHg POC ABG pO2 at Pt Temp POC ABG O2 Sat (90-95) % Alex Test O2 Delivery Device POC O2 Rate Minute Ventilation POC FiO2 % Tidal Volume PEEP POC Sodium (135-144) mmol/L Sodium 131 L (136-145) mmol/L POC Potassium (3.3-5.0) mmol/L Potassium 3.8 (3.5-5.1) mmol/L Chloride 94 L (98-107) mmol/L Carbon Dioxide 20 L (21-32) mmol/L Anion Gap 17.0 H (3-11) BUN 45 H (7-18) mg/dl Creatinine 2.53 H D (0.6-1.4) mg/dl POC Creatinine (0.6-1.3) mg/dl Est Cr Clr Drug Dosing 40.8 ml/min Est GFR ( Amer) 30.1 Est GFR (Non-Af Amer) 26.0 BUN/Creatinine Ratio 17.7 (10-20) Glucose 147 H (70-99) mg/dl Lactate (0.4-2.0) mmol/L Calcium 9.3 (8.5-10.1) mg/dl Ionized Calcium (1.12-1.32) mmol/L Phosphorus 6.4 H D (2.5-4.9) mg/dl Magnesium 2.4 (1.8-2.4) mg/dl Total Bilirubin 1.5 H (0.2-1) mg/dl Direct Bilirubin 1.1 H (0-0.2) mg/dl AST 96 H (15-37) U/L ALT 42 (12-78) U/L Alkaline Phosphatase 95 (45-117) U/L Troponin I 0.247 H* (0-0.045) ng/ml C-Reactive Protein (0-0.29) mg/dl Total Protein 7.6 (6.4-8.2) gm/dl Albumin 3.0 L (3.4-5.0) gm/dl Procalcitonin 3.18 H (0-0.5) ng/ml Nasal Screen MRSA (PCR) Negative (Negative) 10/24/20 10/24/20 Range/Units 22:25 22:24 WBC 10.11 (4.8-10.8) K/uL RBC 3.97 L (4.7-6.1) M/uL Hgb 9.9 L (14.0-18.0) g/dL POC Hgb (14.0-18.0) g/dl Hct 31.1 L (42-52) % POC Hct (42-52) % MCV 78.3 L (80-100) fL MCH 24.9 L (25-34) pg MCHC 31.8 L (32-36) g/dL RDW Std Deviation 49.3 H (36.4-46.3) fL RDW Coeff of Noam 17.2 H (11.5-14.5) % Plt Count 156 (130-400) K/uL MPV 10.8 H (7.4-10.4) fL Immature Gran % (Auto) 1.2 % Neut % (Auto) 72.2 % Lymph % (Auto) 16.3 % [place] % (Auto) 9.8 % Eos % (Auto) 0.1 % Baso % (Auto) 0.4 % Neut # (Auto) 7.30 H (1.4-6.5) K/uL Lymph # (Auto) 1.65 (1.2-3.4) K/uL [place] # (Auto) 0.99 H (0.11-0.59) K/uL Eos # (Auto) 0.01 (0-0.5) K/uL Baso # (Auto) 0.04 (0-0.2) K/uL Immature Gran # (Auto) 0.12 H (0.00-0.02) K/uL Absolute Nucleated RBC 0.03 H (0-0) K/uL Nucleated RBC % (auto) 0.3 % ESR (0-14) mm/hr APTT (21.0-31.0) Seconds PTT Ratio Sample Site POC pH (7.35-7.45) POC pCO2 (35-46) mmHg POC pO2 (80-95) mmHg POC HCO3 (19-24) suellen/L POC Total CO2 (24-31) mmol/L POC Base Excess (-9-1.8) suellen/L ABG pH (Temp Correct) (7.35-7.45) ABG pCO2 (Temp Corrct (35-46) mmHg POC ABG pO2 at Pt Temp POC ABG O2 Sat (90-95) % Alex Test O2 Delivery Device POC O2 Rate Minute Ventilation POC FiO2 % Tidal Volume PEEP POC Sodium (135-144) mmol/L Sodium (136-145) mmol/L POC Potassium (3.3-5.0) mmol/L Potassium (3.5-5.1) mmol/L Chloride (98-107) mmol/L Carbon Dioxide (21-32) mmol/L Anion Gap (3-11) BUN (7-18) mg/dl Creatinine (0.6-1.4) mg/dl POC Creatinine (0.6-1.3) mg/dl Est Cr Clr Drug Dosing ml/min Est GFR ( Amer) Est GFR (Non-Af Amer) BUN/Creatinine Ratio (10-20) Glucose (70-99) mg/dl Lactate 8.1 H* (0.4-2.0) mmol/L Calcium (8.5-10.1) mg/dl Ionized Calcium (1.12-1.32) mmol/L Phosphorus (2.5-4.9) mg/dl Magnesium (1.8-2.4) mg/dl Total Bilirubin (0.2-1) mg/dl Direct Bilirubin (0-0.2) mg/dl AST (15-37) U/L ALT (12-78) U/L Alkaline Phosphatase (45-117) U/L Troponin I (0-0.045) ng/ml C-Reactive Protein (0-0.29) mg/dl Total Protein (6.4-8.2) gm/dl Albumin (3.4-5.0) gm/dl Procalcitonin (0-0.5) ng/ml Nasal Screen MRSA (PCR) (Negative) Medications Administered Current Inpatient Medications Fentanyl Citrate (Fentanyl Bolus From Bag) 50 mcg IV Q60M PRN PRN Reason: Pain or Agitation Stop: 11/07/20 22:29 Gabapentin (Gabapentin 250 Mg/5 Ml 470 Ml Btl) 600 mg NG Q12H [facility] Stop: 10/26/20 00:01 Last Admin: 10/25/20 11:07 Dose: 600 mg Documented by: Gabapentin (Gabapentin 250 Mg/5 Ml 470 Ml Btl) 600 mg NG Q24H [place] Stop: 10/27/20 00:01 Guaifenesin (Guaifenesin 600 Mg Tabcr) 600 mg PO Q12 [place] Stop: 11/22/20 20:59 Last Admin: 10/25/20 08:27 Dose: 600 mg Documented by: Lorazepam (Ativan) 1 mg in 2 mls @ 2 mls/min IV UD PRN; Protocol PRN Reason: EtOH Withdrawl AWSS Score 6,7 Stop: 11/22/20 01:12 Thiamine HCl 100 mg/ Syringe 10 mls @ 2 mls/min IV QAM [facility] Stop: 11/22/20 08:59 Last Admin: 10/25/20 08:26 Dose: 2 mls/min Documented by: Folic Acid 1 mg/ Syringe 10 mls @ 5 mls/min IV QAM [facility] Stop: 11/22/20 08:59 Last Admin: 10/25/20 08:26 Dose: 5 mls/min Documented by: Lorazepam (Ativan) 2 mg in 4 mls @ 4 mls/min IV UD PRN; Protocol PRN Reason: EtOH Withdrawl AWSS Score 8,9 Stop: 11/22/20 01:12 Last Admin: 10/24/20 21:21 Dose: 4 mls/min Documented by: Lorazepam (Ativan) 3 mg in 6 mls @ 4 mls/min IV ONCE PRN; Protocol PRN Reason: EtOH Withdrawl AWSS Score >=10 Stop: 11/22/20 01:12 Doxycycline Hyclate 100 mg/ (Dextrose) 110 mls @ 50 mls/hr IV Q12H [facility] Stop: 10/30/20 08:59 Last Infusion: 10/25/20 13:55 Dose: Infused Documented by: Furosemide 40 mg/ Syringe 4 mls @ 4 mls/min IV DAILY [facility] Stop: 11/22/20 08:59 Last Admin: 10/23/20 08:36 Dose: 4 mls/min Documented by: Piperacillin Sod/Tazobactam (Sod 4.5 gm/ Dextrose) 120 mls @ 30 mls/hr IV Q8H [facility]; Protocol Stop: 10/31/20 00:00 Last Infusion: 10/25/20 21:54 Dose: Infused Documented by: Parenteral Electrolytes (Normosol-R) 1,000 mls @ 80 mls/hr IV .[id number] [place] Stop: 11/23/20 22:29 Last Infusion: 10/25/20 18:39 Dose: 80 mls/hr Documented by: Midazolam HCl (Versed) 125 mg in 250 mls @ 8 mls/hr IV .[id number] PRN; Protocol PRN Reason: Agitation Stop: 11/23/20 22:29 Last Titration: 10/25/20 18:40 Dose: 4 mg/hr, 8 mls/hr Documented by: Fentanyl Citrate (Fentanyl Drip) 1,250 mcg in 250 mls @ 30 mls/hr IV .Q8H20M [facility]; Protocol Stop: 11/07/20 22:29 Last Titration: 10/25/20 18:39 Dose: 150 mcg/hr, 30 mls/hr Documented by: Norepinephrine Bitartrate (Levophed/D5w) 8 mg in 508 mls @ 23.089 mls/hr IV .Q22H1M [facility]; Protocol Stop: 11/23/20 23:44 Last Admin: 10/25/20 21:54 Dose: Not Given Documented by: Cisatracurium Besylate 40 mg/ (Sodium Chloride) 100 mls @ 18.18 mls/hr IV .Q5H31M [facility]; Protocol Stop: 11/24/20 02:59 Last Titration: 10/25/20 18:39 Dose: 1 mcg/kg/min, 18.2 mls/hr Documented by: Pantoprazole Sodium 40 mg/ (Syringe) 10 mls @ 5 mls/min IV DAILY@1100 [place] Stop: 11/24/20 10:59 Last Admin: 10/25/20 08:26 Dose: 5 mls/min Documented by: Dopamine HCl/Dextrose (Dopamine / D5w) 400 mg in 250 mls @ 10.178 mls/hr IV .Q24H [place]; Protocol Stop: 11/24/20 11:44 Last Titration: 10/25/20 18:39 Dose: 2 mcg/kg/min, 10.2 mls/hr Documented by: Heparin Sodium/Dextrose (Heparin Sodium/Dextrose) 25,000 units in 500 mls @ 37 mls/hr IV .[id number] [facility]; Protocol Stop: 11/24/20 13:29 Last Titration: 10/25/20 18:39 Dose: 1,850 units/hr, 37 mls/hr Documented by: Metoprolol Tartrate (Metoprolol Tartrate 1 Mg/Ml Vial) 5 mg IV Q6 PRN PRN Reason: Hypertension Stop: 11/22/20 01:12 Midazolam HCl (Midazolam Bolus From Bag) 2 mg IV Q60M PRN PRN Reason: Sedation Stop: 11/23/20 22:29 Miscellaneous ([facility] Protocol For Hyperglycemia) 1 ea N/A PRN PRN; Protocol PRN Reason: Hyperglycemia Protocol Stop: 10/26/20 22:23 Miscellaneous Information (Piperacill/Tazobac Consult Active) 1 ea N/A UD PRN PRN Reason: Consult Stop: 11/22/20 18:26 Nitroglycerin (Nitroglycerin Sl 0.4 Mg/Tab Tab) 0.4 mg SL UD PRN PRN Reason: Chest Pain Stop: 11/22/20 01:12 Resident Activity Tracking Resident Involvement: Resident Care Provided Care Provided: Adult Hospital Medicine (1) Pneumonia Laterality: right Lung location: lower lobe of lung Pneumonia type: due to unspecified organism Qualified Code(s): J18.9 - Pneumonia, unspecified organism
--- NOTE | 2020-10-25 08:08 | XRay Report ---
XR chest 1V portable HISTORY: line placement COMPARISON: Chest 10/23/2020. FINDINGS: The endotracheal tube terminates 3.6 cm from the braden. Right jugular central venous rachana ter terminates in the expected location of the brachiocephalic/SVC junction. No pneumothorax. No pleu ral effusions. Nasogastric tube terminates below the diaphragm. The tip is not included on this study . There is mild central pulmonary vascular congestion without overt edema. Stable cardiomegaly and wi dening of the mediastinum. IMPRESSION: 1. Satisfactory support line placement. 2. Mild central pulmonary vascular congestion without overt edema. 3. Stable cardiomegaly and mediastinal widening. ACT 112: Negative or not required by law. Electronically signed by: Kirk Watkins M.D. 10/25/2020 8:07 AM
--- NOTE | 2020-10-25 08:12 | XRay Report ---
XR chest 1V portable HISTORY: Shortness of breath. COMPARISON: Chest 10/25/2020. FINDINGS: Lines and tubes remain unchanged in position. No pneumothorax. No pleural effusions. Stable cardiomegaly and widening of the mediastinum. IMPRESSION: 1. Satisfactory support line placement. 2. Stable cardiomegaly and mediastinal widening. ACT 112: Negative or not required by law. Electronically signed by: Kirk Watkins M.D. 10/25/2020 8:10 AM
[2020-10-25] MEDS: DOXYCYCLINE HYCLATE 100 MG in DEXTROSE 5% 100 ML IV SCH ×2 (08:25→21:56)
[2020-10-25] MEDS: PANTOprazole 40 MG in SYRINGE 0 ML IV SCH (08:26)
[2020-10-25] MEDS: FOLIC ACID 1 MG in SYRINGE 9.8 ML IV SCH (08:26)
[2020-10-25] MEDS: fentaNYL DRIP 1,250 MCG/250 ML BAG IV SCH ×3 (08:26→22:00)
[2020-10-25] MEDS: THIAMINE HCL 100 MG in SYRINGE 9 ML IV SCH (08:26)
[2020-10-25] MEDS: guaiFENesin 600 MG TABCR PO SCH ×2 (08:27→21:55)
--- NOTE | 2020-10-25 08:41 | CT Scan Report ---
CT chest diagnostic wo con CT DOSE: 4888.83 mGy.cm HISTORY: Status post cardiac arrest. TECHNIQUE: Multiaxial CT images of the chest were performed without contrast. A dose lowering techni que was utilized adhering to the principles of ALARA. COMPARISON: Chest CTA 10/23/2020. FINDINGS: Endotracheal tube terminates 3.5 cm from the braden. Nasogastric tube terminates in the dis chastity stomach. Mild motion artifact. Nondisplaced left anterior third rib fracture. This could be due t o the cardiopulmonary resuscitation. The heart remains enlarged. Trace pericardial effusion, unchange d. There are trace bilateral pleural effusions. This is improved on the right. There is a normal catherine bridger thoracic aorta. Mild mediastinal lymphadenopathy, unchanged. Mild bilateral axillary lymphadenopa thy is also unchanged. The main pulmonary artery remains dilated up to 4.3 cm. This is consistent wit h pulmonary arterial hypertension. Coronary artery calcifications are again noted. Gas within the rig ht atrium is likely due to prior line insertion. The central airways remain patent. Mild interlobular septal thickening and perihilar hazy groundglass airspace opacities favors mild interstitial pulmona ry edema. Patchy densities within the lungs posteriorly favor atelectasis. An aspiration pneumonitis could also have a similar appearance. IMPRESSION: 1. Satisfactory support line placement. 2. Nondisplaced left anterior third rib fracture. No pneumothorax. 3. Perihilar groundglass densities and mild interlobular septal thickening favors mild pulmonary kain a. There are also trace bilateral pleural effusions. 4. Patchy densities within the lungs posteriorly favor atelectasis. An aspiration pneumonitis could a lso have a similar appearance. 5. Mild mediastinal and bilateral hilar lymphadenopathy, unchanged. 6. Cardiomegaly, unchanged. ACT 112: Negative or not required by law. Electronically signed by: Kirk Watkins M.D. 10/25/2020 8:40 AM
--- NOTE | 2020-10-25 08:46 | CT Scan Report ---
ABDOMEN AND PELVIS CT WITHOUT CONTRAST CT DOSE: HISTORY: Status post cardiac arrest. TECHNIQUE: Multiaxial CT images of the abdomen and pelvis were performed without contrast. A dose lo wering technique was utilized adhering to the principles of ALARA. COMPARISON STUDY: Abdomen and pelvis CT 04/08/2016. FINDINGS: Please refer to same day chest CT for further evaluation of the lung bases. Nasogastric tub e terminates in the distal stomach. No pneumoperitoneum. No pneumatosis. Suboptimal study due to the motion artifact. No acute fractures within the visualized osseous structures. Mild hepatic steatosis, unchanged. The unenhanced spleen, adrenal glands, pancreas, and gallbladder are within normal limits . Mild fat stranding at the jero hepatis appears to be chronic. This remains unchanged. Contrast wit hin the kidneys from the recent chest CTA. No hydronephrosis. No retroperitoneal lymphadenopathy. Sma ll umbilical hernia again noted. This contains fat and a short segment of small bowel. The bladder is decompressed by a Brock catheter. Small bilateral fat-containing inguinal hernias. Normal caliber ab dominal aorta. Multiple retroperitoneal lymph nodes remain subcentimeter in short axis diameter but h ave slightly increased in size. There is also been increase in size in the pelvic and inguinal lympha denopathy. Dominant right inguinal lymph node measures 3.5 x 2.6 cm. Suboptimal evaluation for bowel pathology due to the lack of intravenous and oral contrast. However, there is no definite bowel wall thickening or obstruction. IMPRESSION: 1. No acute traumatic process within the abdomen or pelvis. 2. Progressive retroperitoneal, pelvic, and inguinal lymphadenopathy. A neoplastic process such as ly mphoma would be the diagnosis of exclusion. 3. Please refer to the same day chest CT for further evaluation of the lung bases. 4. These findings were called/faxed to the referring physician following dictation. ACT 112: Negative or not required by law. Electronically signed by: Kirk Watkins M.D. 10/25/2020 8:45 AM
--- NOTE | 2020-10-25 09:13 | Hospitalist Progress Note ---
Date of Service October 25, 2020 Assessment & Plan Admission and Anticipated Discharge Date Admission Date: October 23, 2020 Subjective Patient had code blue last night. Earlier patient was agitated and was given iv ativan as per alcohol withdrawal protocol. After that some time later patient was unresponsive. Question of seizures. no pulse was palpable and code blue was called. Cpr was stared and received a dose of epinephrine. Bicarbonate was given. Patientt Heart rate went into 200's initially seemed wide complex and was delivered one shock. And then amiodarone was given. Fluids were given.Then patient pulse was palpable. Meanwhile patient was intubated. After that his BP was ok and he was spontaneously breathing on Vent. Brother was notified about the event. In ICU patient was started on hypothermia protocol. ICU kindly called again his son and brother and informed about patient condition and current plan of hypothermia protocol. Will continue to monitor. Results & Data Results & Data ([facility]) Vital Signs (Past 12 Hours) Vital Signs Temp Temp Pulse Resp BP BP BP 10/25/20 07:44 48 L 19 10/25/20 06:03 35.2 C L 54 L 154/97 H 10/25/20 06:00 35.1 C L 51 L 18 154/97 H 145/81 H 10/25/20 05:33 35.7 C L 60 152/121 H 10/25/20 05:03 62 140/104 H 10/25/20 05:00 36.2 C L 68 18 153/75 H 140/104 H 10/25/20 04:51 62 136/93 10/25/20 04:47 38 C H 77 22 99/74 L 114/51 L 10/25/20 04:34 75 10/25/20 04:01 72 99/74 L 10/25/20 03:51 77 90/73 L 10/25/20 03:47 38.6 C H 72 38 H 99/84 L 10/25/20 03:41 71 108/77 10/25/20 03:31 70 86/63 L 10/25/20 03:21 66 96/71 L 10/25/20 03:11 68 100/64 10/25/20 03:01 38.6 C H 75 99/84 L 10/25/20 02:51 74 102/77 10/25/20 02:50 73 18 10/25/20 02:41 78 98/71 L 10/25/20 02:31 72 105/75 10/25/20 02:21 67 106/77 10/25/20 02:11 71 98/66 L 10/25/20 02:01 38.6 C H 82 97/75 L 10/25/20 01:51 66 102/60 10/25/20 01:41 78 95/76 L 10/25/20 01:31 81 99/72 L 10/25/20 01:21 82 87/71 L 10/25/20 01:11 75 104/75 10/25/20 01:01 80 103/89 10/25/20 00:51 78 100/73 10/25/20 00:41 87 94/66 L 10/25/20 00:31 85 99/85 L 10/25/20 00:21 79 91/63 L 10/25/20 00:11 85 87/67 L 10/25/20 00:01 84 98/66 L 10/24/20 23:50 84 25 H 95/56 L 10/24/20 23:41 90 32 H 83/63 L 10/24/20 23:31 97 H 23 82/62 L 10/24/20 22:39 109 H 124/101 H Pulse Ox 10/25/20 07:44 100 10/25/20 06:03 97 10/25/20 06:00 99 10/25/20 05:33 99 10/25/20 05:03 93 10/25/20 05:00 97 10/25/20 04:51 100 10/25/20 04:47 97 10/25/20 04:34 96 10/25/20 04:01 10/25/20 03:51 10/25/20 03:47 100 10/25/20 03:41 93 10/25/20 03:31 100 10/25/20 03:21 100 10/25/20 03:11 100 10/25/20 03:01 100 10/25/20 02:51 98 10/25/20 02:50 98 10/25/20 02:41 100 10/25/20 02:31 10/25/20 02:21 10/25/20 02:11 10/25/20 02:01 10/25/20 01:51 98 10/25/20 01:41 100 10/25/20 01:31 100 10/25/20 01:21 100 10/25/20 01:11 100 10/25/20 01:01 100 10/25/20 00:51 99 10/25/20 00:41 99 10/25/20 00:31 99 10/25/20 00:21 98 10/25/20 00:11 100 10/25/20 00:01 98 10/24/20 23:50 98 10/24/20 23:41 98 10/24/20 23:31 98 10/24/20 22:39 89 L
[2020-10-25 10:57] LABS: Hematocrit (blood only) 26.5 % (42-52); Hemoglobin 8.4 g/dL (14.0-18.0)
[2020-10-25] MEDS: GABAPENTIN 250 MG/5 ML 470 ML BTL NG SCH (11:07)
[2020-10-25 11:15] LABS: BUN Creatinine Ratio 21.7 (10-20); Calcium 7.9 mg/dl (8.5-10.1); Est GFR (African American) 29.9; Est GFR (Non-African American) 25.8; Potassium 3.5 mmol/L (3.5-5.1)
--- NOTE | 2020-10-25 11:17 | Electroencephalogram ---
EEG Procedure Note Date of Service October 25, 2020 Start / End Times Start Time: 09:15 End Time: 09:35 Referring Physician Brad Alejandro History A 65 year old male with recent cardiac arrest. EEG performed for evaluation of seizures. Home Medication List Medication Instructions Recorded Confirmed Type paroxetine HCl [Paxil] 40 mg PO DAILY 04/15/20 10/22/20 History ferrous sulfate 325 mg PO QAM #30 tab 10/09/20 10/22/20 Rx metoprolol tartrate 12.5 mg PO BID 30 Days #30 tab 10/09/20 10/22/20 Rx omeprazole 20 mg PO DAILY #30 cap 10/09/20 10/22/20 Rx Inpatient Medication List Gabapentin (Gabapentin 250 Mg/5 Ml 470 Ml Btl) 600 mg NG Q12H [facility] Stop: 10/26/20 00:01 Last Admin: 10/25/20 11:07 Dose: 600 mg Documented by: [id number] Guaifenesin (Guaifenesin 600 Mg Tabcr) 600 mg PO Q12 [facility] Stop: 11/22/20 20:59 Last Admin: 10/25/20 08:27 Dose: 600 mg Documented by: [id number] Admin: 10/24/20 21:00 Dose: 600 mg Documented by: [id number] Admin: 10/24/20 08:40 Dose: 600 mg Documented by: [id number] Admin: 10/23/20 21:34 Dose: 600 mg Documented by: [id number] Thiamine HCl 100 mg/ Syringe 10 mls @ 2 mls/min IV QAM [facility] Stop: 11/22/20 08:59 Last Admin: 10/25/20 08:26 Dose: 2 mls/min Documented by: [id number] Admin: 10/24/20 08:40 Dose: 2 mls/min Documented by: [id number] Admin: 10/23/20 09:00 Dose: 2 mls/min Documented by: [id number] Folic Acid 1 mg/ Syringe 10 mls @ 5 mls/min IV QAM [facility] Stop: 11/22/20 08:59 Last Admin: 10/25/20 08:26 Dose: 5 mls/min Documented by: [id number] Admin: 10/24/20 08:40 Dose: 5 mls/min Documented by: [id number] Admin: 10/23/20 08:36 Dose: 5 mls/min Documented by: [id number] Lorazepam (Ativan) 2 mg in 4 mls @ 4 mls/min IV UD PRN; Protocol PRN Reason: EtOH Withdrawl AWSS Score 8,9 Stop: 11/22/20 01:12 Last Admin: 10/24/20 21:21 Dose: 4 mls/min Documented by: [id number] Admin: 10/24/20 19:51 Dose: 4 mls/min Documented by: [id number] Doxycycline Hyclate 100 mg/ (Dextrose) 110 mls @ 50 mls/hr IV Q12H [facility] Stop: 10/30/20 08:59 Last Admin: 10/25/20 08:25 Dose: 50 mls/hr Documented by: [id number] Infusion: 10/25/20 01:48 Dose: 0 mls/hr Documented by: [id number] Admin: 10/24/20 21:00 Dose: 50 mls/hr Documented by: [id number] Infusion: 10/24/20 10:38 Dose: 0 mls/hr Documented by: [id number] Admin: 10/24/20 08:41 Dose: 50 mls/hr Documented by: [id number] Infusion: 10/23/20 23:53 Dose: 0 mls/hr Documented by: [id number] Admin: 10/23/20 21:33 Dose: 50 mls/hr Documented by: [id number] Infusion: 10/23/20 10:43 Dose: 0 mls/hr Documented by: [id number] Admin: 10/23/20 08:31 Dose: 50 mls/hr Documented by: [id number] Furosemide 40 mg/ Syringe 4 mls @ 4 mls/min IV DAILY [facility] Stop: 11/22/20 08:59 Last Admin: 10/23/20 08:36 Dose: 4 mls/min Documented by: [id number] Piperacillin Sod/Tazobactam (Sod 4.5 gm/ Dextrose) 120 mls @ 30 mls/hr IV Q8H [facility]; Protocol Stop: 10/31/20 00:00 Last Admin: 10/25/20 08:25 Dose: 30 mls/hr Documented by: [id number] Infusion: 10/25/20 08:16 Dose: 0 mls/hr Documented by: [id number] Admin: 10/25/20 03:05 Dose: 30 mls/hr Documented by: [id number] Infusion: 10/25/20 01:47 Dose: 0 mls/hr Documented by: [id number] Admin: 10/24/20 16:04 Dose: 30 mls/hr Documented by: [id number] Infusion: 10/24/20 12:52 Dose: 0 mls/hr Documented by: [id number] Admin: 10/24/20 08:40 Dose: 30 mls/hr Documented by: [id number] Infusion: 10/24/20 04:23 Dose: 0 mls/hr Documented by: [id number] Admin: 10/24/20 00:17 Dose: 30 mls/hr Documented by: [id number] Parenteral Electrolytes (Normosol-R) 1,000 mls @ 80 mls/hr IV .[id number] [facility] Stop: 11/23/20 22:29 Last Infusion: 10/25/20 09:38 Dose: 80 mls/hr Documented by: [id number] Admin: 10/25/20 03:04 Dose: 80 mls/hr Documented by: [id number] Midazolam HCl (Versed) 125 mg in 250 mls @ 2 mls/hr IV .Q96H PRN; Protocol PRN Reason: Agitation Stop: 11/23/20 22:29 Last Admin: 10/25/20 07:06 Dose: 4 mg/hr, 8 mls/hr Documented by: [id number] Cosigned by: [id number] Fentanyl Citrate (Fentanyl Drip) 1,250 mcg in 250 mls @ 20 mls/hr IV .[id number] [facility]; Protocol Stop: 11/07/20 22:29 Last Titration: 10/25/20 09:35 Dose: 100 mcg/hr, 20 mls/hr Documented by: [id number] Cosigned by: [id number] Admin: 10/25/20 08:26 Dose: 150 mcg/hr, 30 mls/hr Documented by: [id number] Cosigned by: [id number] Titration: 10/25/20 08:26 Dose: 150 mcg/hr, 30 mls/hr Documented by: [id number] Cosigned by: [id number] Titration: 10/25/20 07:02 Dose: 150 mcg/hr, 30 mls/hr Documented by: [id number] Cosigned by: [id number] Titration: 10/25/20 06:11 Dose: 150 mcg/hr, 30 mls/hr Documented by: [id number] Cosigned by: [id number] Titration: 10/24/20 23:07 Dose: 100 mcg/hr, 20 mls/hr Documented by: [id number] Cosigned by: [id number] Admin: 10/24/20 22:30 Dose: 25 mcg/hr, 5 mls/hr Documented by: [id number] Cosigned by: [id number] Norepinephrine Bitartrate (Levophed/D5w) 8 mg in 508 mls @ 23.089 mls/hr IV .Q22H1M [facility]; Protocol Stop: 11/23/20 23:44 Last Titration: 10/25/20 09:35 Dose: 0 mcg/kg/min, 0 mls/hr Documented by: [id number] Titration: 10/25/20 07:02 Dose: 0.05 mcg/kg/min, 23.1 mls/hr Documented by: [id number] Cosigned by: [id number] Admin: 10/25/20 03:04 Dose: 0.05 mcg/kg/min, 23.1 mls/hr Documented by: [id number] Cosigned by: [id number] Cisatracurium Besylate 40 mg/ (Sodium Chloride) 100 mls @ 0 mls/hr IV .Q0M [facility]; Protocol Stop: 11/24/20 02:59 Last Titration: 10/25/20 09:38 Dose: 0 mcg/kg/min, 0 mls/hr Documented by: [id number] Admin: 10/25/20 08:26 Dose: 1 mcg/kg/min, 18.2 mls/hr Documented by: [id number] Cosigned by: [id number] Titration: 10/25/20 08:26 Dose: 1 mcg/kg/min, 18.2 mls/hr Documented by: [id number] Cosigned by: [id number] Titration: 10/25/20 07:02 Dose: 1 mcg/kg/min, 18.2 mls/hr Documented by: [id number] Cosigned by: [id number] Admin: 10/25/20 03:06 Dose: 1 mcg/kg/min, 18.2 mls/hr Documented by: [id number] Cosigned by: [id number] Pantoprazole Sodium 40 mg/ (Syringe) 10 mls @ 5 mls/min IV DAILY@1100 [facility] Stop: 11/24/20 10:59 Last Admin: 10/25/20 08:26 Dose: 5 mls/min Documented by: [id number] Amiodarone HCl/Dextrose (Nexterone / D5w) 360 mg in 200 mls @ 16.667 mls/hr IV .Q12H [facility] Stop: 11/24/20 06:29 Last Infusion: 10/25/20 09:38 Dose: 0 mg/min, 0 mls/hr Documented by: [id number] Cosigned by: [id number] Infusion: 10/25/20 07:02 Dose: 0.5 mg/min, 16.7 mls/hr Documented by: [id number] Cosigned by: [id number] Admin: 10/25/20 06:38 Dose: 0.5 mg/min, 16.7 mls/hr Documented by: [id number] Cosigned by: [id number] Discontinued Medications Acetaminophen (Acetaminophen 325 Mg Tab) 650 mg PO Q4H PRN PRN Reason: Pain or Fever Stop: 11/22/20 01:12 Last Admin: 10/23/20 17:10 Dose: 650 mg Documented by: [id number] Admin: 10/23/20 04:01 Dose: 650 mg Documented by: [id number] Amiodarone HCl/Dextrose (Amiodarone 360mg / 200ml D5w) Confirm Administered Dose 360 mg IV .STK-MED ONE Stop: 10/24/20 22:10 Last Admin: 10/25/20 06:00 Dose: Not Given Documented by: [id number] Aspirin (Aspirin 81 Mg Chew) 324 mg PO NOW STA Stop: 10/22/20 23:06 Last Admin: 10/22/20 23:38 Dose: 324 mg Documented by: [id number] Doxycycline Hyclate (Doxycycline Hyclate 100 Mg Cap) 100 mg PO NOW STA Stop: 10/22/20 23:06 Last Admin: 10/22/20 23:40 Dose: 100 mg Documented by: [id number] Fentanyl Citrate (Fentanyl Citrate 1250mcg/250ml Nss) Confirm Administered Dose 1,250 mcg IV .STK-MED ONE Stop: 10/24/20 22:34 Last Admin: 10/24/20 22:39 Dose: 100 mcg Documented by: [id number] Cosigned by: [id number] Ferrous Sulfate (Ferrous Sulfate 325 Mg Tab) 325 mg PO QAM [facility] Stop: 11/22/20 08:59 Last Admin: 10/24/20 08:39 Dose: 325 mg Documented by: [id number] Admin: 10/23/20 08:35 Dose: 325 mg Documented by: [id number] Furosemide (Furosemide 40 Mg/4 Ml Vial) 40 mg IV NOW STA Stop: 10/22/20 23:06 Last Admin: 10/22/20 23:38 Dose: 40 mg Documented by: [id number] Gabapentin (Gabapentin 600 Mg Tab) 1,200 mg PO NOW ONE Stop: 10/23/20 01:14 Last Admin: 10/23/20 02:27 Dose: 1,200 mg Documented by: [id number] Gabapentin (Gabapentin 600 Mg Tab) 600 mg PO Q6H [facility] Stop: 10/23/20 14:01 Last Admin: 10/23/20 13:48 Dose: 600 mg Documented by: [id number] Admin: 10/23/20 08:35 Dose: 600 mg Documented by: [id number] Gabapentin (Gabapentin 600 Mg Tab) 600 mg PO Q8H [facility] Stop: 10/24/20 14:01 Last Admin: 10/24/20 13:05 Dose: 600 mg Documented by: [id number] Admin: 10/24/20 06:04 Dose: 600 mg Documented by: [id number] Admin: 10/23/20 21:36 Dose: 600 mg Documented by: [id number] Gabapentin (Gabapentin 600 Mg Tab) 600 mg PO Q12H [facility] Stop: 10/25/20 14:01 Last Admin: 10/25/20 06:06 Dose: Not Given Documented by: [id number] Magnesium Sulfate/Dextrose (Magnesium Sulfate / D5w) 1 gm in 100 mls @ 200 mls/hr IV Q30M [facility] Stop: 10/23/20 00:05 Last Infusion: 10/23/20 00:59 Dose: 0 mls/hr Documented by: [id number] Admin: 10/23/20 00:29 Dose: 200 mls/hr Documented by: [id number] Infusion: 10/23/20 00:11 Dose: 200 mls/hr Documented by: [id number] Admin: 10/22/20 23:41 Dose: 200 mls/hr Documented by: [id number] Ceftriaxone Sodium (Rocephin) 2,000 mg in 70 mls @ 140 mls/hr IV NOW STA Stop: 10/22/20 23:34 Last Infusion: 10/23/20 01:10 Dose: 0 mls/hr Documented by: [id number] Admin: 10/23/20 00:42 Dose: 140 mls/hr Documented by: [id number] Potassium Chloride (K Jesus / Wtr) 10 meq in 100 mls @ 100 mls/hr IV Q1H [facility] Stop: 10/23/20 11:29 Last Infusion: 10/23/20 13:36 Dose: 0 mls/hr Documented by: [id number] Admin: 10/23/20 12:36 Dose: 100 mls/hr Documented by: [id number] Infusion: 10/23/20 12:00 Dose: 0 mls/hr Documented by: [id number] Admin: 10/23/20 11:00 Dose: 100 mls/hr Documented by: [id number] Infusion: 10/23/20 11:00 Dose: 0 mls/hr Documented by: [id number] Admin: 10/23/20 10:00 Dose: 100 mls/hr Documented by: [id number] Magnesium Sulfate/Dextrose (Magnesium Sulfate / D5w) 1 gm in 100 mls @ 50 mls/hr IV TODAY@0830 ONE Stop: 10/23/20 10:29 Last Infusion: 10/23/20 12:00 Dose: 0 mls/hr Documented by: [id number] Admin: 10/23/20 10:00 Dose: 50 mls/hr Documented by: [id number] Piperacillin Sod/Tazobactam (Sod 4.5 gm/ Dextrose) 120 mls @ 200 mls/hr IV NOW ONE; Protocol Stop: 10/23/20 19:35 Last Infusion: 10/23/20 20:34 Dose: 0 mls/hr Documented by: [id number] Admin: 10/23/20 19:39 Dose: 200 mls/hr Documented by: [id number] Lorazepam (Ativan) 0.5 mg in 1 mls @ 0.5 mls/min IV ONCE ONE Stop: 10/23/20 18:28 Last Admin: 10/23/20 19:39 Dose: 0.5 mls/min Documented by: [id number] Potassium Chloride (K Jesus / Wtr) 10 meq in 100 mls @ 100 mls/hr IV Q1H [facility] Stop: 10/24/20 10:16 Last Infusion: 10/24/20 11:24 Dose: 0 mls/hr Documented by: [id number] Admin: 10/24/20 10:00 Dose: 100 mls/hr Documented by: [id number] Infusion: 10/24/20 09:49 Dose: 100 mls/hr Documented by: [id number] Admin: 10/24/20 08:49 Dose: 100 mls/hr Documented by: [id number] Amiodarone HCl/Dextrose (Nexterone / D5w) 360 mg in 200 mls @ 33.333 mls/hr IV ONE ONE; Protocol Stop: 10/25/20 04:27 Last Infusion: 10/25/20 06:12 Dose: 0 mg/min, 0 mls/hr Documented by: [id number] Cosigned by: [id number] Admin: 10/24/20 22:30 Dose: 1 mg/min, 33.3 mls/hr Documented by: [id number] Cosigned by: [id number] Ioversol (Optiray 320 125ml) 125 ml IV ONCE ONE Stop: 10/23/20 06:29 Last Admin: 10/23/20 06:28 Dose: 116 ml Documented by: [id number] Metoprolol Tartrate (Metoprolol Tartrate 1 Mg/Ml Vial) 5 mg IV NOW STA Stop: 10/23/20 00:30 Last Admin: 10/23/20 00:37 Dose: 5 mg Documented by: [id number] Metoprolol Tartrate (Metoprolol Tartrate 25 Mg Tab) 12.5 mg PO BID [facility] Stop: 11/22/20 08:59 Last Admin: 10/23/20 21:34 Dose: 12.5 mg Documented by: [id number] Admin: 10/23/20 08:33 Dose: 12.5 mg Documented by: [id number] Metoprolol Tartrate (Metoprolol Tartrate 1 Mg/Ml Vial) 5 mg IV NOW STA Stop: 10/23/20 05:30 Last Admin: 10/23/20 05:38 Dose: 5 mg Documented by: [id number] Metoprolol Tartrate (Metoprolol Tartrate 25 Mg Tab) 25 mg PO BID [facility] Stop: 11/23/20 08:59 Last Admin: 10/24/20 21:00 Dose: 25 mg Documented by: [id number] Admin: 10/24/20 08:39 Dose: 25 mg Documented by: [id number] Midazolam HCl (Midazolam Hcl 125mg/250ml D5w) Confirm Administered Dose 125 mg .ROUTE .STK-MED ONE Stop: 10/24/20 22:34 Last Admin: 10/24/20 22:39 Dose: 4 mg Documented by: [id number] Cosigned by: [id number] Pantoprazole Sodium (Pantoprazole 40 Mg Tab) 40 mg PO DAILY [facility] Stop: 11/22/20 08:59 Last Admin: 10/24/20 08:39 Dose: 40 mg Documented by: [id number] Admin: 10/23/20 08:37 Dose: 40 mg Documented by: [id number] Paroxetine HCl (Paroxetine Hcl 20 Mg Tab) 40 mg PO DAILY [facility] Stop: 11/22/20 08:59 Last Admin: 10/24/20 08:39 Dose: 40 mg Documented by: [id number] Admin: 10/23/20 08:32 Dose: 40 mg Documented by: [id number] Polyethylene Glycol (Polyethylene (Miralax) 17 Gm Pack) 17 gm PO DAILY [facility] Stop: 11/23/20 16:29 Last Admin: 10/24/20 17:30 Dose: 17 gm Documented by: [id number] Potassium Chloride (Potassium Chloride Crtab 20 Meq Tabcr) 40 meq PO NOW STA Stop: 10/23/20 08:26 Last Admin: 10/23/20 09:00 Dose: 40 meq Documented by: [id number] Description This is a 21 electrode EEG with a single channel dedicated to limited EKG. The electrodes were placed in accordance with the International 10-20 system. REPORT: At the onset of the EEG the patient is in an altered mental state. The background is symmetric. The posterior dominant rhythm is not seen. Instead the background is suppressed mainly consisting of 2-3 Hz delta activity with some superimposed beta activity which is likely artifact. Photic stimulation does not induce any additional abnormalities. No stage II sleep transients are seen. IMPRESSION: This is an abnormal routine EEG in a patient with altered mentation due to severe background suppression consistent with a severe non specific encephalopathy. No electrographic seizures or epileptiform discharges are recorded.
--- NOTE | 2020-10-25 11:17 | Cardiology Progress Note ---
Date of Service October 25, 2020 Assessment & Plan (1) Cardiac arrest: Event appears to be loss of pulse and pressure in the presence of intact rhythm likely multifactorial in etiology given multiple underlying morbidities and need for sedation. Patient does have risk factors for ischemic heart disease as well as potential tachybradycardia arrhythmias superimposed on underlying issues as below. Patient initially not anticoagulated due to multiple risk issues. Cerebrovascular embolic event not excluded as well. Recommendations: As patient is bradycardic this morning we will discontinue IV amiodarone. Cardiac event last night did not appear to be tachycardia mediated and patient currently bradycardic while sedated and cooled, hold metoprolol as well Cardiac enzymes elevated likely on the basis of event although underlying ischemic issues not excluded. Echo already ordered we will review Anticoagulation currently being held due to recent lower extremity varicosities with associated bleeding 10/08/2020, chronic microcytic anemia We will recommend at least transient anticoagulation with IV heparin given elevated troponin, atrial flutter (2) Atrial flutter with rapid ventricular response: (3) Elevated troponin: (4) Obesity (BMI 30-39.9): (5) Chronic diastolic heart failure: (6) Acute on chronic renal failure: Admission and Anticipated Discharge Date Admission Date: October 23, 2020 Subjective Transient bradycardia post cardioversion Patient seen and examined, chart, medications, telemetry reviewed. Events of prior evening noted. Patient with increasing agitation initially treated with IV lorazepam as per E Rafa withdrawal protocol. Patient with witnessed loss of consciousness and pulseless arrest with intact rhythm Patient received CPR, IV epinephrine with transient tachyarrhythmia or receiving defibrillation x1, transient bradycardia post cardioversion. Patient was intubated and ultimately spontaneous return of blood pressure and limited consciousness though agitated and sedated. Patient begun on IV amiodarone at that time Patient is undergoing cooling/hypothermia protocol. Currently intubated and sedated unable to offer additional information Review of Systems Review of Systems: Unobtainable due to endotracheal tube Physical Exam Constitutional: + morbidly obese and + mechanically ventilated Eyes: + fixed pupils (Secondary to medical therapy) ENMT: Ears: no external ear abnormality Nose: no external nose abnormality Mouth: + oropharynx abnormality (Endotracheal tube in place) Neck: trachea midline, no thyromegaly + thick neck Respiratory: Coarse airway sounds Cardiovascular: Rate/Rhythm: + bradycardic and + irregularly irregular Heart Sounds: normal S1 and normal S2; no gallop Vessels: normal carotid upstroke and radial pulses present Extremities: + edema (1-2+ with chronic indurated stasis changes) Gastrointestinal (Abdomen): Percussion/Palpation: abdomen soft Musculoskeletal: no cyanosis or clubbing, extremities motor strength 5/5 Skin: + induration (And chronic excoriation of the lower extremities) Neurologic: Patient intubated and sedated/paralyzed through cooling protocol Results & Data ([facility]) Vital Signs (Past 12 Hours) Vital Signs Temp Temp Pulse Resp BP BP BP 10/25/20 11:03 47 L 110/63 10/25/20 11:00 34.3 C L 47 L 18 85/67 L 110/81 10/25/20 10:00 34.2 C L 46 L 18 104/66 114/60 10/25/20 09:00 34.1 C L 55 L 18 195/107 H 200/103 H 10/25/20 08:00 34.0 C L 51 L 18 176/102 H 172/94 H 10/25/20 07:44 48 L 19 10/25/20 07:00 34.3 C L 51 L 18 169/105 H 150/88 H 10/25/20 06:03 35.2 C L 54 L 154/97 H 10/25/20 06:00 35.1 C L 51 L 18 154/97 H 145/81 H 10/25/20 05:33 35.7 C L 60 152/121 H 10/25/20 05:03 62 140/104 H 10/25/20 05:00 36.2 C L 68 18 153/75 H 140/104 H 10/25/20 04:51 62 136/93 10/25/20 04:47 38 C H 77 22 99/74 L 114/51 L 10/25/20 04:34 75 10/25/20 04:01 72 99/74 L 10/25/20 03:51 77 90/73 L 10/25/20 03:47 38.6 C H 72 38 H 99/84 L 10/25/20 03:41 71 108/77 10/25/20 03:31 70 86/63 L 10/25/20 03:21 66 96/71 L 10/25/20 03:11 68 100/64 10/25/20 03:01 38.6 C H 75 99/84 L 10/25/20 02:51 74 102/77 10/25/20 02:50 73 18 10/25/20 02:41 78 98/71 L 10/25/20 02:31 72 105/75 10/25/20 02:21 67 106/77 10/25/20 02:11 71 98/66 L 10/25/20 02:01 38.6 C H 82 97/75 L 10/25/20 01:51 66 102/60 10/25/20 01:41 78 95/76 L 10/25/20 01:31 81 99/72 L 10/25/20 01:21 82 87/71 L 10/25/20 01:11 75 104/75 10/25/20 01:01 80 103/89 10/25/20 00:51 78 100/73 10/25/20 00:41 87 94/66 L 10/25/20 00:31 85 99/85 L 10/25/20 00:21 79 91/63 L 10/25/20 00:11 85 87/67 L 10/25/20 00:01 84 98/66 L 10/24/20 23:50 84 25 H 95/56 L 10/24/20 23:41 90 32 H 83/63 L 10/24/20 23:31 97 H 23 82/62 L Pulse Ox 10/25/20 11:03 10/25/20 11:00 100 10/25/20 10:00 100 10/25/20 09:00 100 10/25/20 08:00 100 10/25/20 07:44 100 10/25/20 07:00 100 10/25/20 06:03 97 10/25/20 06:00 99 10/25/20 05:33 99 10/25/20 05:03 93 10/25/20 05:00 97 10/25/20 04:51 100 10/25/20 04:47 97 10/25/20 04:34 96 10/25/20 04:01 10/25/20 03:51 10/25/20 03:47 100 10/25/20 03:41 93 10/25/20 03:31 100 10/25/20 03:21 100 10/25/20 03:11 100 10/25/20 03:01 100 10/25/20 02:51 98 10/25/20 02:50 98 10/25/20 02:41 100 10/25/20 02:31 10/25/20 02:21 10/25/20 02:11 10/25/20 02:01 10/25/20 01:51 98 10/25/20 01:41 100 10/25/20 01:31 100 10/25/20 01:21 100 10/25/20 01:11 100 10/25/20 01:01 100 10/25/20 00:51 99 10/25/20 00:41 99 10/25/20 00:31 99 10/25/20 00:21 98 10/25/20 00:11 100 10/25/20 00:01 98 10/24/20 23:50 98 10/24/20 23:41 98 10/24/20 23:31 98 Laboratory Results Laboratory Results - last 24 hr 10/24/20 10/24/20 10/24/20 22:24 22:25 22:25 WBC 10.11 RBC 3.97 L Hgb 9.9 L POC Hgb Hct 31.1 L POC Hct MCV 78.3 L MCH 24.9 L MCHC 31.8 L RDW Std Deviation 49.3 H RDW Coeff of Noam 17.2 H Plt Count 156 MPV 10.8 H Immature Gran % (Auto) 1.2 Neut % (Auto) 72.2 Lymph % (Auto) 16.3 Pepin % (Auto) 9.8 Eos % (Auto) 0.1 Baso % (Auto) 0.4 Neut # (Auto) 7.30 H Lymph # (Auto) 1.65 Pepin # (Auto) 0.99 H Eos # (Auto) 0.01 Baso # (Auto) 0.04 Immature Gran # (Auto) 0.12 H Absolute Nucleated RBC 0.03 H Nucleated RBC % (auto) 0.3 ESR Sample Site POC pH POC pCO2 POC pO2 POC HCO3 POC Total CO2 POC Base Excess ABG pH (Temp Correct) ABG pCO2 (Temp Corrct POC ABG pO2 at Pt Temp POC ABG O2 Sat Alex Test O2 Delivery Device POC FiO2 PEEP POC Sodium Sodium 131 L POC Potassium Potassium 3.8 Chloride 94 L Carbon Dioxide 20 L Anion Gap 17.0 H BUN 45 H Creatinine 2.53 H D POC Creatinine Est Cr Clr Drug Dosing 40.8 Est GFR ( Amer) 30.1 Est GFR (Non-Af Amer) 26.0 BUN/Creatinine Ratio 17.7 Glucose 147 H Lactate 8.1 H* Calcium 9.3 Ionized Calcium Phosphorus 6.4 H D Magnesium 2.4 Total Bilirubin 1.5 H Direct Bilirubin 1.1 H AST 96 H ALT 42 Alkaline Phosphatase 95 Troponin I 0.247 H* C-Reactive Protein Total Protein 7.6 Albumin 3.0 L Procalcitonin Nasal Screen MRSA (PCR) 10/24/20 10/24/20 10/25/20 22:25 22:35 03:16 WBC 8.79 RBC 3.62 L Hgb 8.8 L POC Hgb Hct 27.8 L POC Hct MCV 76.8 L MCH 24.3 L MCHC 31.7 L RDW Std Deviation 47.9 H RDW Coeff of Noam 17.1 H Plt Count 140 MPV 10.8 H Immature Gran % (Auto) 1.4 Neut % (Auto) 72.6 Lymph % (Auto) 10.1 Pepin % (Auto) 15.7 Eos % (Auto) 0.0 Baso % (Auto) 0.2 Neut # (Auto) 6.38 Lymph # (Auto) 0.89 L Pepin # (Auto) 1.38 H Eos # (Auto) 0.00 Baso # (Auto) 0.02 Immature Gran # (Auto) 0.12 H Absolute Nucleated RBC 0.02 H Nucleated RBC % (auto) 0.2 ESR Sample Site POC pH POC pCO2 POC pO2 POC HCO3 POC Total CO2 POC Base Excess ABG pH (Temp Correct) ABG pCO2 (Temp Corrct POC ABG pO2 at Pt Temp POC ABG O2 Sat Alex Test O2 Delivery Device POC FiO2 PEEP POC Sodium Sodium POC Potassium Potassium Chloride Carbon Dioxide Anion Gap BUN Creatinine POC Creatinine Est Cr Clr Drug Dosing Est GFR ( Amer) Est GFR (Non-Af Amer) BUN/Creatinine Ratio Glucose Lactate Calcium Ionized Calcium Phosphorus Magnesium Total Bilirubin Direct Bilirubin AST ALT Alkaline Phosphatase Troponin I C-Reactive Protein Total Protein Albumin Procalcitonin 3.18 H Nasal Screen MRSA (PCR) Negative 10/25/20 10/25/20 10/25/20 03:16 03:16 03:16 WBC RBC Hgb POC Hgb Hct POC Hct MCV MCH MCHC RDW Std Deviation RDW Coeff of Noam Plt Count MPV Immature Gran % (Auto) Neut % (Auto) Lymph % (Auto) Pepin % (Auto) Eos % (Auto) Baso % (Auto) Neut # (Auto) Lymph # (Auto) Pepin # (Auto) Eos # (Auto) Baso # (Auto) Immature Gran # (Auto) Absolute Nucleated RBC Nucleated RBC % (auto) ESR Sample Site POC pH POC pCO2 POC pO2 POC HCO3 POC Total CO2 POC Base Excess ABG pH (Temp Correct) ABG pCO2 (Temp Corrct POC ABG pO2 at Pt Temp POC ABG O2 Sat Alex Test O2 Delivery Device POC FiO2 PEEP POC Sodium Sodium 132 L POC Potassium Potassium 4.7 D Chloride 97 L Carbon Dioxide 24 Anion Gap 11.0 BUN 52 H Creatinine 2.80 H POC Creatinine Est Cr Clr Drug Dosing 36.8 Est GFR ( Amer) 26.6 Est GFR (Non-Af Amer) 23.0 BUN/Creatinine Ratio 18.4 Glucose 112 H Lactate Calcium 8.5 Ionized Calcium 1.06 L Phosphorus 6.7 H Magnesium Total Bilirubin Direct Bilirubin AST ALT Alkaline Phosphatase Troponin I 0.841 H* C-Reactive Protein Total Protein Albumin Procalcitonin 6.07 H Nasal Screen MRSA (PCR) 10/25/20 10/25/20 10/25/20 03:16 03:39 03:42 WBC RBC Hgb POC Hgb 9.9 L Hct POC Hct 29 L MCV MCH MCHC RDW Std Deviation RDW Coeff of Noam Plt Count MPV Immature Gran % (Auto) Neut % (Auto) Lymph % (Auto) Pepin % (Auto) Eos % (Auto) Baso % (Auto) Neut # (Auto) Lymph # (Auto) Pepin # (Auto) Eos # (Auto) Baso # (Auto) Immature Gran # (Auto) Absolute Nucleated RBC Nucleated RBC % (auto) ESR Sample Site Art Line POC pH 7.39 POC pCO2 35 POC pO2 192 H POC HCO3 21 POC Total CO2 22 L POC Base Excess -4.0 ABG pH (Temp Correct) 7.368 ABG pCO2 (Temp Corrct 37 POC ABG pO2 at Pt Temp 199 POC ABG O2 Sat 100.0 H Alex Test NA O2 Delivery Device Ventilator POC FiO2 50 PEEP 8 POC Sodium 128 L Sodium POC Potassium 4.5 Potassium Chloride Carbon Dioxide Anion Gap BUN Creatinine POC Creatinine 3.0 H Est Cr Clr Drug Dosing Est GFR ( Amer) Est GFR (Non-Af Amer) BUN/Creatinine Ratio Glucose Lactate 2.0 Calcium Ionized Calcium Phosphorus Magnesium Total Bilirubin Direct Bilirubin AST ALT Alkaline Phosphatase Troponin I C-Reactive Protein Total Protein Albumin Procalcitonin Nasal Screen MRSA (PCR) 10/25/20 10/25/20 10/25/20 04:37 04:37 07:15 WBC RBC Hgb 9.3 L POC Hgb Hct 29.4 L POC Hct MCV MCH MCHC RDW Std Deviation RDW Coeff of Noam Plt Count MPV Immature Gran % (Auto) Neut % (Auto) Lymph % (Auto) Pepin % (Auto) Eos % (Auto) Baso % (Auto) Neut # (Auto) Lymph # (Auto) Pepin # (Auto) Eos # (Auto) Baso # (Auto) Immature Gran # (Auto) Absolute Nucleated RBC Nucleated RBC % (auto) ESR 56 H Sample Site POC pH POC pCO2 POC pO2 POC HCO3 POC Total CO2 POC Base Excess ABG pH (Temp Correct) ABG pCO2 (Temp Corrct POC ABG pO2 at Pt Temp POC ABG O2 Sat Alex Test O2 Delivery Device POC FiO2 PEEP POC Sodium Sodium 132 L POC Potassium Potassium 4.2 Chloride 101 Carbon Dioxide 20 L Anion Gap 11.0 BUN 49 H Creatinine 2.58 H POC Creatinine Est Cr Clr Drug Dosing 40.0 Est GFR ( Amer) 29.4 Est GFR (Non-Af Amer) 25.4 BUN/Creatinine Ratio 18.9 Glucose 128 H Lactate Calcium 7.8 L Ionized Calcium Phosphorus 6.7 H Magnesium 2.3 Total Bilirubin 1.3 H Direct Bilirubin 1.0 H AST 94 H ALT 41 Alkaline Phosphatase 84 Troponin I C-Reactive Protein 11.90 H Total Protein 6.7 Albumin 2.8 L Procalcitonin Nasal Screen MRSA (PCR) 10/25/20 10/25/20 10/25/20 07:15 07:15 07:15 WBC RBC Hgb POC Hgb Hct POC Hct MCV MCH MCHC RDW Std Deviation RDW Coeff of Noam Plt Count MPV Immature Gran % (Auto) Neut % (Auto) Lymph % (Auto) Pepin % (Auto) Eos % (Auto) Baso % (Auto) Neut # (Auto) Lymph # (Auto) Pepin # (Auto) Eos # (Auto) Baso # (Auto) Immature Gran # (Auto) Absolute Nucleated RBC Nucleated RBC % (auto) ESR Sample Site POC pH POC pCO2 POC pO2 POC HCO3 POC Total CO2 POC Base Excess ABG pH (Temp Correct) ABG pCO2 (Temp Corrct POC ABG pO2 at Pt Temp POC ABG O2 Sat Alex Test O2 Delivery Device POC FiO2 PEEP POC Sodium Sodium 130 L POC Potassium Potassium 4.0 Chloride 95 L Carbon Dioxide 22 Anion Gap 13.0 H BUN 51 H Creatinine 2.78 H POC Creatinine Est Cr Clr Drug Dosing 39.3 Est GFR ( Amer) 26.9 Est GFR (Non-Af Amer) 23.2 BUN/Creatinine Ratio 18.2 Glucose 164 H Lactate Calcium 8.8 Ionized Calcium 1.03 L Phosphorus 6.4 H Magnesium 2.6 H Total Bilirubin Direct Bilirubin AST ALT Alkaline Phosphatase Troponin I C-Reactive Protein Total Protein Albumin Procalcitonin Nasal Screen MRSA (PCR) 10/25/20 10/25/20 10/25/20 10:45 10:45 10:45 WBC RBC Hgb 8.4 L POC Hgb Hct 26.5 L POC Hct MCV MCH MCHC RDW Std Deviation RDW Coeff of Noam Plt Count MPV Immature Gran % (Auto) Neut % (Auto) Lymph % (Auto) Pepin % (Auto) Eos % (Auto) Baso % (Auto) Neut # (Auto) Lymph # (Auto) Pepin # (Auto) Eos # (Auto) Baso # (Auto) Immature Gran # (Auto) Absolute Nucleated RBC Nucleated RBC % (auto) ESR Sample Site POC pH POC pCO2 POC pO2 POC HCO3 POC Total CO2 POC Base Excess ABG pH (Temp Correct) ABG pCO2 (Temp Corrct POC ABG pO2 at Pt Temp POC ABG O2 Sat Alex Test O2 Delivery Device POC FiO2 PEEP POC Sodium Sodium 131 L POC Potassium Potassium 3.5 Chloride 99 Carbon Dioxide 23 Anion Gap 9.0 BUN 55 H Creatinine 2.54 H POC Creatinine Est Cr Clr Drug Dosing 43.0 Est GFR ( Amer) 29.9 Est GFR (Non-Af Amer) 25.8 BUN/Creatinine Ratio 21.7 H Glucose 172 H Lactate Calcium 7.9 L Ionized Calcium 1.01 L Phosphorus Pending Magnesium Total Bilirubin Direct Bilirubin AST ALT Alkaline Phosphatase Troponin I Pending C-Reactive Protein Total Protein Albumin Procalcitonin Nasal Screen MRSA (PCR) 10/25/20 10:45 WBC RBC Hgb POC Hgb Hct POC Hct MCV MCH MCHC RDW Std Deviation RDW Coeff of Noam Plt Count MPV Immature Gran % (Auto) Neut % (Auto) Lymph % (Auto) Pepin % (Auto) Eos % (Auto) Baso % (Auto) Neut # (Auto) Lymph # (Auto) Pepin # (Auto) Eos # (Auto) Baso # (Auto) Immature Gran # (Auto) Absolute Nucleated RBC Nucleated RBC % (auto) ESR Sample Site POC pH POC pCO2 POC pO2 POC HCO3 POC Total CO2 POC Base Excess ABG pH (Temp Correct) ABG pCO2 (Temp Corrct POC ABG pO2 at Pt Temp POC ABG O2 Sat Alex Test O2 Delivery Device POC FiO2 PEEP POC Sodium Sodium POC Potassium Potassium Chloride Carbon Dioxide Anion Gap BUN Creatinine POC Creatinine Est Cr Clr Drug Dosing Est GFR ( Amer) Est GFR (Non-Af Amer) BUN/Creatinine Ratio Glucose Lactate Calcium Ionized Calcium Phosphorus Magnesium 2.5 H Total Bilirubin Direct Bilirubin AST ALT Alkaline Phosphatase Troponin I C-Reactive Protein Total Protein Albumin Procalcitonin Nasal Screen MRSA (PCR)
[2020-10-25 11:32] LABS: Phosphorus 5.7 mg/dl (2.5-4.9); Troponin I 0.304 ng/ml (0-0.045)
[2020-10-25 12:31] LABS: iSTAT Art Bld Gas pCO2 Correct 70 mmHg (35-46); iSTAT Art Bld Gas pH Corrected 7.098 (7.35-7.45); iSTAT Arterial Blood Gas HCO3 23 meg/L (19-24); iSTAT Arterial Blood Gas pCO2 79 mmHg (35-46); iSTAT Arterial Blood Gas pH 7.06 (7.35-7.45); iSTAT Arterial Blood Gas pO2 133 mmHg (80-95); iSTAT Arterial Blood Gas pO2 C 118; iSTAT Carbon Dioxide 25 mmol/L (24-31); iSTAT FiO2 100 %; iSTAT Hematocrit 38 % (42-52); iSTAT Hemoglobin 12.9 g/dl (14.0-18.0); iSTAT Potassium 4.3 mmol/L (3.3-5.0); iSTAT Site Art Line; iSTAT Sodium 130 mmol/L (135-144)
[2020-10-25] MEDS: DOPamine / D5W 400 MG/250 ML BAG IV SCH (13:10)
[2020-10-25] MEDS: HEPARIN SODIUM/DEXTROSE 25,000 UNITS/500 ML BAG IV SCH (14:03)
[2020-10-25 15:12] LABS: Hemoglobin 9.2 g/dL (14.0-18.0)
[2020-10-25 15:18] LABS: iSTAT Art Bld Gas pCO2 Correct 28 mmHg (35-46); iSTAT Art Bld Gas pH Corrected 7.475 (7.35-7.45); iSTAT Arterial Blood Gas HCO3 22 meg/L (19-24); iSTAT Arterial Blood Gas pCO2 33 mmHg (35-46); iSTAT Arterial Blood Gas pH 7.42 (7.35-7.45); iSTAT Arterial Blood Gas pO2 110 mmHg (80-95); iSTAT Arterial Blood Gas pO2 C 90; iSTAT Carbon Dioxide 23 mmol/L (24-31); iSTAT FiO2 30 %; iSTAT Hematocrit 29 % (42-52); iSTAT Hemoglobin 9.9 g/dl (14.0-18.0); iSTAT Potassium 3.3 mmol/L (3.3-5.0); iSTAT Site Art Line; iSTAT Sodium 131 mmol/L (135-144)
[2020-10-25 15:28] LABS: Calcium 7.9 mg/dl (8.5-10.1); Creatinine Clr Calc Pharmacy 44.6 ml/min; Est GFR (African American) 31.3; Potassium 3.5 mmol/L (3.5-5.1)
[2020-10-25 15:29] LABS: Phosphorus 6.4 mg/dl (2.5-4.9)
[2020-10-25] MEDS ORDERED: POTASSIUM CHLORIDE 20 MEQ/15 ML UDC PO STA (15:39)
[2020-10-25] MEDS: POTASSIUM CHLORIDE / WTR 20 MEQ/100 ML PLCT IV SCH ×2 (16:03→17:06)
[2020-10-25 20:18] LABS: Hematocrit (blood only) 30.5 % (42-52); Hemoglobin 9.8 g/dL (14.0-18.0)
[2020-10-25 20:33] LABS: BUN Creatinine Ratio 23.6 (10-20); Calcium 8.2 mg/dl (8.5-10.1); Creatinine Clr Calc Pharmacy 53.6 ml/min; Est GFR (Non-African American) 33.7; Potassium 3.6 mmol/L (3.5-5.1)
[2020-10-25 20:36] LABS: Partial Thromboplastin Ratio 4.6
[2020-10-25 20:40] LABS: iSTAT Art Bld Gas pCO2 Correct 26 mmHg (35-46); iSTAT Art Bld Gas pH Corrected 7.512 (7.35-7.45); iSTAT Arterial Blood Gas HCO3 22 meg/L (19-24); iSTAT Arterial Blood Gas pCO2 31 mmHg (35-46); iSTAT Arterial Blood Gas pH 7.46 (7.35-7.45); iSTAT Arterial Blood Gas pO2 89 mmHg (80-95); iSTAT Arterial Blood Gas pO2 C 72; iSTAT Carbon Dioxide 23 mmol/L (24-31); iSTAT FiO2 30 %; iSTAT Hematocrit 31 % (42-52); iSTAT Hemoglobin 10.5 g/dl (14.0-18.0); iSTAT Potassium 3.6 mmol/L (3.3-5.0); iSTAT Site Art Line; iSTAT Sodium 133 mmol/L (135-144)
[2020-10-25 20:41] LABS: Phosphorus 4.2 mg/dl (2.5-4.9); Troponin I 0.136 ng/ml (0-0.045)
[2020-10-25 20:57] LABS: Partial Thromboplastin Time 121.8 Seconds (21.0-31.0)
[2020-10-25 22:46] LABS: Hematocrit (blood only) 31.2 % (42-52); Hemoglobin 9.9 g/dL (14.0-18.0)
[2020-10-25 23:05] LABS: BUN Creatinine Ratio 24.6 (10-20); Creatinine Clr Calc Pharmacy 56.9 ml/min; Est GFR (Non-African American) 36.2; Phosphorus 4.1 mg/dl (2.5-4.9); Potassium 3.5 mmol/L (3.5-5.1)
[2020-10-25 23:28] LABS: iSTAT Art Bld Gas pCO2 Correct 29 mmHg (35-46); iSTAT Art Bld Gas pH Corrected 7.493 (7.35-7.45); iSTAT Arterial Blood Gas HCO3 23 meg/L (19-24); iSTAT Arterial Blood Gas pCO2 34 mmHg (35-46); iSTAT Arterial Blood Gas pH 7.44 (7.35-7.45); iSTAT Arterial Blood Gas pO2 121 mmHg (80-95); iSTAT Arterial Blood Gas pO2 C 101; iSTAT Carbon Dioxide 24 mmol/L (24-31); iSTAT FiO2 30 %; iSTAT Hematocrit 32 % (42-52); iSTAT Hemoglobin 10.9 g/dl (14.0-18.0); iSTAT Potassium 3.4 mmol/L (3.3-5.0); iSTAT Site Art Line; iSTAT Sodium 133 mmol/L (135-144)
[2020-10-26] MEDS: Heparin IV Adult Wt-Based Standard *NO* Bolus Protocol IV SCH ×2 (00:10→00:11)
[2020-10-26] MEDS: PIPERACILLIN/TAZOBACTAM 4.5 GM in DEXTROSE 5% 100 ML IV SCH ×3 (00:28→15:37)
[2020-10-26] MEDS: GABAPENTIN 250 MG/5 ML 470 ML BTL NG SCH (00:31)
[2020-10-26] MEDS: MIDAZOLAM HCL 125 MG/250 ML BAG IV PRN (01:58)
[2020-10-26 03:35] LABS: iSTAT Art Bld Gas pCO2 Correct 33 mmHg (35-46); iSTAT Art Bld Gas pH Corrected 7.464 (7.35-7.45); iSTAT Arterial Blood Gas HCO3 24 meg/L (19-24); iSTAT Arterial Blood Gas pCO2 38 mmHg (35-46); iSTAT Arterial Blood Gas pH 7.41 (7.35-7.45); iSTAT Arterial Blood Gas pO2 140 mmHg (80-95); iSTAT Arterial Blood Gas pO2 C 120; iSTAT Carbon Dioxide 26 mmol/L (24-31); iSTAT FiO2 100 %; iSTAT Hematocrit 31 % (42-52); iSTAT Hemoglobin 10.5 g/dl (14.0-18.0); iSTAT Potassium 3.2 mmol/L (3.3-5.0); iSTAT Site Art Line; iSTAT Sodium 133 mmol/L (135-144)
[2020-10-26 05:29] LABS: Hematocrit (blood only) 32.2 % (42-52); Hemoglobin 10.3 g/dL (14.0-18.0); Mean Corpuscular Volume 74.9 fL (80-100); RDW Coefficient of Variation 16.9 % (11.5-14.5); RDW Standard Deviation 46.2 fL (36.4-46.3); White Blood Count 6.14 K/uL (4.8-10.8)
[2020-10-26 05:35] LABS: Albumin Level 2.3 gm/dl (3.4-5.0); BUN Creatinine Ratio 26.9 (10-20); Calcium 7.6 mg/dl (8.5-10.1); Creatinine Clr Calc Pharmacy 62.1 ml/min; Est GFR (African American) 46.7; Est GFR (Non-African American) 40.3; Magnesium 2.5 mg/dl (1.8-2.4); Potassium 3.2 mmol/L (3.5-5.1)
[2020-10-26 05:38] LABS: Bilirubin,Total 1.5 mg/dl (0.2-1); Phosphorus 3.8 mg/dl (2.5-4.9); Total Protein 6.2 gm/dl (6.4-8.2)
[2020-10-26] MEDS ORDERED: POTASSIUM CHLORIDE CRTAB 20 MEQ TABCR PO STA (05:45)
[2020-10-26] MEDS: CISATRACURIUM BESYLATE 40 MG in 0.9 % SODIUM CHLORIDE 80 ML IV SCH ×3 (05:55→20:44)
[2020-10-26] MEDS: POTASSIUM CHLORIDE / WTR 20 MEQ/100 ML PLCT IV SCH ×2 (05:55→07:42)
[2020-10-26] MEDS: NORMOSOL-R 1,000 ML IV SCH ×2 (05:55→21:44)
[2020-10-26 06:01] LABS: Mean Platelet Volume 10.3 fL (7.4-10.4); Platelet Count 112 K/uL (130-400)
[2020-10-26 06:04] LABS: Basophils # (auto) 0.01 K/uL (0-0.2); Basophils % (auto) 0.2 %; Eosinophils # (auto) 0.02 K/uL (0-0.5); Eosinophils % (auto) 0.3 %; Immature Granulocytes % (auto) 3.3 %; Lymphocytes # (auto) 0.75 K/uL (1.2-3.4); Lymphocytes % (auto) 12.2 %; Monocytes % (auto) 9.8 %; Neutrophils # (auto) 4.56 K/uL (1.4-6.5); Neutrophils % (auto) 74.2 %; Partial Thromboplastin Ratio 3.3; Polychromasia 1+; Toxic Vacuolation 1+
[2020-10-26 06:17] LABS: Partial Thromboplastin Time 86.8 Seconds (21.0-31.0)
--- NOTE | 2020-10-26 07:39 | Hospitalist Progress Note ---
Date of Service October 26, 2020 Assessment & Plan (1) Shortness of breath: (2) Weakness: (3) Acute diastolic (congestive) heart failure: (4) Pneumonia: (5) Hypokalemia: (6) CHF (congestive heart failure): Cardiac arrest This is a 65-year-old male who presents with shortness of breath. Pt initially treated for CHF exacerbation, RLL PNA, Aflutter, poss. R foot cellulitis. Pt w/ hx of alcohol abuse (confirmed by pt and his family members), on etoh withdrawal protocol. Night of 10/24 - pt received ativan per etoh withdrawal protocol as he was found to be agitated. Soon after pt witnessed LOC and pulseless, code blue was called, CPR per nursing staff, ACLS protocol - epi x2, cardioversion for wide complex tachycardia, started on amiodarone, intubated by ER physician. Pt then in care of ICU. Underwent hypothermic protocol, now being rewarmed. Cardiac arrest Bradycardia Night of 10/24 - pt received ativan per etoh withdrawal protocol as he was found to be agitated. Soon after pt witnessed LOC and pulseless, code blue was called, CPR per nursing staff, ACLS protocol - epi x2, cardioversion for wide complex tachycardia, started on amiodarone, intubated by ER physician. Pt in care of ICU. Underwent hypothermic protocol. Now being rewarmed. Pt cont. to be intubated and sedated. Currently bradycardic - amiodarone was stopped as well as metoprolol Trop elevated (also some mild elevation noted on admission believed to be 2/2 CHF exacerbation, but ischemia cannot be excluded) Echo repeated - LV function preserved Cardiology following 1. Pt initially admitted for Shortness of breath most likely acute on chronic diastolic congestive heart failure and also right sided heart failure, Aflutter and CAP. CXR c/w with cardiomegaly pulm. congestion and airspace consolidation in R lung base Elevated troponin on admission, secondary to above Last echo 10/08/2020 -LV is normal in size. EF 60 to 65%. RV is moderately dilated. RV systolic function is moderately reduced. LA is moderately dilated. RA is moderately dilated. There is mild mitral regurg. Pulmonary hypertension is suspected and the estimated pulmonary artery systolic pressure is between 55 and 60 mmHg. ER gave one dose of iv Lasix 40mg. Continued with IV 40mg Lasix daily, stopped yesterday (10/24) d/t Cr elev. Continued PO metoprolol, now stopped d/t bradycardia as above Pt was not a candidate for anticoagulation in the past - hx of alcoholism, risk of fall, recurrent blood loss d/t varicose bleed (last one 10/08) Given elev. trop, aflutter and now cardiac arrest, risk of CVA, recommended at least transient AC and started IV heparin Telemetry reviewed (10/26) - atrial fibrillation with bradycardic response. EKGs with more pronounced T wave inversions in anterior precordial leads Echocardiogram with preserved LV systolic function Follow daily weights, I's and O's, monitor in the tele floor. Cardiology consulted, appreciate their input CT chest - negative for PE. 2. Tachycardia on admission, most likely 2/2 CHF, PNA and alcohol withdrawal. The patient was also on high dose of Lopressor in the past. Recently restarted on 12.5 b.i.d. Continued the 12.[address] him on IV Lopressor p.r.n. Monitor the heart rates and adjust medications and await cardiac input. 3. CAP - CXR c/w Airspace consolidation is seen in the right lung base - procalcitonin elevated - pt started on Rocephin and doxy on admission - switched to zosyn for concern of poss. aspiration 4. Lower extremity Cellulitis? open wound on right foot. Obtained doppler - negative for DVT Obtained CT foot - negative for osteomyelitis ESR, CRP elevated Blood cultx - pending Wound care consulted Cont. Abx as above 5. Alcoholism, alcohol withdrawal with tachycardia and hypertension. Continued with gabapentin protocol and also IV Ativan p.r.n. Continue with IV thiamine, IV folic acid. Closely monitor for withdrawal. Pt received ativan the night of 10/24, per etoh withdrawal protocol, then LOC and code blue/ cardiac arrest as above 6 Anemia. Hemoglobin is stable at 9.5, on iron supplements. We will continue. Recent hx of venous ulcer bleed. 7. Hypertension Previously was on lisinopril 20 mg and metoprolol tartrate 50 mg b.i.d. On last admission, he was discharged on metoprolol 12.5 mg b.i.d. (pt was not on any medications prior to recent admission d/t lack of insurance) Continued PO metoprolol, will increase to [address] him on IV Lopressor. Monitor blood pressure. 8. Diabetes. Last HbA1c was 5.7. We will monitor the blood sugar. 9. Obstructive sleep apnea, on CPAP at bedtime. Now pt intubated. 10. Psoriasis. Previously on Humira. Needs followup. 11. History of paroxysmal atrial flutter. We will monitor. Await cardiac input. As above, will start IV heparin 12. Hypomagnesemia, replaced in the ER.Follow labs DVT prophylaxis, held heparin initially given recent bleed (from venous ulcer), now started on IV heparin Admission and Anticipated Discharge Date Admission Date: October 23, 2020 Subjective Patient seen in follow up, after cardiac arrest Initially admitted for shortness of breath, CHF exacerb., aflutter Patient remains in ICU, sedated and intubated, underwent hypothermia protocol, now being warmed. Review of Systems Review of Systems: Unobtainable due to cognitive status and Unobtainable due to endotracheal tube Physical Exam Physical Exam: GENERAL: obese male, sedated and intubated HEENT: NC/AT, Pupils constricted NECK: No JVD, no neck masses seen. CARDIOVASCULAR: S1, S2 heard. + irregular, + bradycardia. No murmurs. RESPIRATORY SYSTEM: on mechanical vent. +Mild rhonchi, no wheezing ABDOMEN: Soft, obese, bowel sounds present NEURO: sedated EXTREMITIES: Bilateral lower extremity chronic skin changes c/w venous stasis and varicosities, open cut in the plantar aspect of the right foot near the big toe. No drainage seen. SKIN: skin changes c/w venous stasis and varicosities, + extensive psoriasis Results & Data Results & Data ([facility]) Vital Signs (Past 12 Hours) Vital Signs Temp Pulse Resp BP BP BP Pulse Ox 10/26/20 06:00 33.6 C L 47 L 16 110/69 128/65 100 10/26/20 05:00 33.6 C L 51 L 16 134/64 137/64 100 10/26/20 04:00 33.5 C L 51 L 16 115/57 L 134/88 115/57 L 100 10/26/20 03:14 40 L 16 100 10/26/20 03:00 33.5 C L 46 L 16 106/71 118/56 L 100 10/26/20 02:00 33.4 C L 50 L 16 96/70 L 121/56 L 100 10/26/20 01:00 33.4 C L 45 L 16 108/74 124/58 L 100 10/26/20 00:00 33.5 C L 54 L 16 133/64 110/83 141/62 H 100 10/25/20 23:18 46 L 18 100 10/25/20 23:00 33.5 C L 43 L 16 123/77 147/74 H 100 10/25/20 22:00 33.5 C L 42 L 18 135/91 138/65 100 10/25/20 21:00 33.5 C L 54 L 18 137/81 153/68 H 100 10/25/20 20:25 44 L 18 100 10/25/20 20:00 33.5 C L 43 L 18 156/67 H 138/94 156/67 H 100 Laboratory Results 10/26/20 10/26/20 10/26/20 Range/Units 05:04 05:04 05:04 WBC 6.14 (4.8-10.8) K/uL RBC 4.30 L (4.7-6.1) M/uL Hgb 10.3 L (14.0-18.0) g/dL POC Hgb (14.0-18.0) g/dl Hct 32.2 L (42-52) % POC Hct (42-52) % MCV 74.9 L (80-100) fL MCH 24.0 L (25-34) pg MCHC 32.0 (32-36) g/dL RDW Std Deviation 46.2 (36.4-46.3) fL RDW Coeff of Noam 16.9 H (11.5-14.5) % Plt Count 112 L (130-400) K/uL MPV 10.3 (7.4-10.4) fL Immature Gran % (Auto) 3.3 % Neut % (Auto) 74.2 % Lymph % (Auto) 12.2 % Grand % (Auto) 9.8 % Eos % (Auto) 0.3 % Baso % (Auto) 0.2 % Neut # (Auto) 4.56 (1.4-6.5) K/uL Lymph # (Auto) 0.75 L (1.2-3.4) K/uL Grand # (Auto) 0.60 H (0.11-0.59) K/uL Eos # (Auto) 0.02 (0-0.5) K/uL Baso # (Auto) 0.01 (0-0.2) K/uL Immature Gran # (Auto) 0.20 H (0.00-0.02) K/uL Toxic Vacuolation 1+ Polychromasia 1+ APTT 86.8 H* (21.0-31.0) Seconds PTT Ratio 3.3 Sample Site POC pH (7.35-7.45) POC pCO2 (35-46) mmHg POC pO2 (80-95) mmHg POC HCO3 (19-24) suellen/L POC Total CO2 (24-31) mmol/L POC Base Excess (-9-1.8) suellen/L ABG pH (Temp Correct) (7.35-7.45) ABG pCO2 (Temp Corrct (35-46) mmHg POC ABG pO2 at Pt Temp POC ABG O2 Sat (90-95) % Alex Test O2 Delivery Device POC O2 Rate Minute Ventilation POC FiO2 % Tidal Volume PEEP POC Sodium (135-144) mmol/L Sodium 135 L (136-145) mmol/L POC Potassium (3.3-5.0) mmol/L Potassium 3.2 L (3.5-5.1) mmol/L Chloride 103 (98-107) mmol/L Carbon Dioxide 26 (21-32) mmol/L Anion Gap 6.0 (3-11) BUN 47 H (7-18) mg/dl Creatinine 1.76 H (0.6-1.4) mg/dl Est Cr Clr Drug Dosing 62.1 ml/min Est GFR ( Amer) 46.7 Est GFR (Non-Af Amer) 40.3 BUN/Creatinine Ratio 26.9 H (10-20) Glucose 139 H (70-99) mg/dl Calcium 7.6 L (8.5-10.1) mg/dl Ionized Calcium (1.12-1.32) mmol/L Phosphorus 3.8 (2.5-4.9) mg/dl Magnesium 2.5 H (1.8-2.4) mg/dl Total Bilirubin 1.5 H (0.2-1) mg/dl Direct Bilirubin 1.0 H (0-0.2) mg/dl AST 61 H (15-37) U/L ALT 37 (12-78) U/L Alkaline Phosphatase 68 (45-117) U/L Troponin I (0-0.045) ng/ml Total Protein 6.2 L (6.4-8.2) gm/dl Albumin 2.3 L (3.4-5.0) gm/dl 10/26/20 10/26/20 10/25/20 Range/Units 03:22 00:47 23:14 WBC (4.8-10.8) K/uL RBC (4.7-6.1) M/uL Hgb (14.0-18.0) g/dL POC Hgb 10.5 L 10.9 L (14.0-18.0) g/dl Hct (42-52) % POC Hct 31 L 32 L (42-52) % MCV (80-100) fL MCH (25-34) pg MCHC (32-36) g/dL RDW Std Deviation (36.4-46.3) fL RDW Coeff of Noam (11.5-14.5) % Plt Count (130-400) K/uL MPV (7.4-10.4) fL Immature Gran % (Auto) % Neut % (Auto) % Lymph % (Auto) % Grand % (Auto) % Eos % (Auto) % Baso % (Auto) % Neut # (Auto) (1.4-6.5) K/uL Lymph # (Auto) (1.2-3.4) K/uL Grand # (Auto) (0.11-0.59) K/uL Eos # (Auto) (0-0.5) K/uL Baso # (Auto) (0-0.2) K/uL Immature Gran # (Auto) (0.00-0.02) K/uL Toxic Vacuolation Polychromasia APTT (21.0-31.0) Seconds PTT Ratio Sample Site Art Line Art Line POC pH 7.41 7.44 (7.35-7.45) POC pCO2 38 34 L (35-46) mmHg POC pO2 140 H 121 H (80-95) mmHg POC HCO3 24 23 (19-24) suellen/L POC Total CO2 26 24 (24-31) mmol/L POC Base Excess 0.0 -1.0 (-9-1.8) suellen/L ABG pH (Temp Correct) 7.464 H 7.493 H (7.35-7.45) ABG pCO2 (Temp Corrct 33 L 29 L (35-46) mmHg POC ABG pO2 at Pt Temp 120 101 POC ABG O2 Sat 99.0 H 99.0 H (90-95) % Alex Test NA NA O2 Delivery Device Ventilator Ventilator POC O2 Rate 16 18 Minute Ventilation 8.0 9.0 POC FiO2 100 30 % Tidal Volume 500 500 PEEP 8 8 POC Sodium 133 L 133 L (135-144) mmol/L Sodium (136-145) mmol/L POC Potassium 3.2 L 3.4 (3.3-5.0) mmol/L Potassium (3.5-5.1) mmol/L Chloride (98-107) mmol/L Carbon Dioxide (21-32) mmol/L Anion Gap (3-11) BUN (7-18) mg/dl Creatinine (0.6-1.4) mg/dl Est Cr Clr Drug Dosing ml/min Est GFR ( Amer) Est GFR (Non-Af Amer) BUN/Creatinine Ratio (10-20) Glucose (70-99) mg/dl Calcium (8.5-10.1) mg/dl Ionized Calcium (1.12-1.32) mmol/L Phosphorus (2.5-4.9) mg/dl Magnesium 2.3 (1.8-2.4) mg/dl Total Bilirubin (0.2-1) mg/dl Direct Bilirubin (0-0.2) mg/dl AST (15-37) U/L ALT (12-78) U/L Alkaline Phosphatase (45-117) U/L Troponin I (0-0.045) ng/ml Total Protein (6.4-8.2) gm/dl Albumin (3.4-5.0) gm/dl 10/25/20 10/25/20 10/25/20 Range/Units 22:31 22:31 22:31 WBC (4.8-10.8) K/uL RBC (4.7-6.1) M/uL Hgb 9.9 L (14.0-18.0) g/dL POC Hgb (14.0-18.0) g/dl Hct 31.2 L (42-52) % POC Hct (42-52) % MCV (80-100) fL MCH (25-34) pg MCHC (32-36) g/dL RDW Std Deviation (36.4-46.3) fL RDW Coeff of Noam (11.5-14.5) % Plt Count (130-400) K/uL MPV (7.4-10.4) fL Immature Gran % (Auto) % Neut % (Auto) % Lymph % (Auto) % Grand % (Auto) % Eos % (Auto) % Baso % (Auto) % Neut # (Auto) (1.4-6.5) K/uL Lymph # (Auto) (1.2-3.4) K/uL Grand # (Auto) (0.11-0.59) K/uL Eos # (Auto) (0-0.5) K/uL Baso # (Auto) (0-0.2) K/uL Immature Gran # (Auto) (0.00-0.02) K/uL Toxic Vacuolation Polychromasia APTT (21.0-31.0) Seconds PTT Ratio Sample Site POC pH (7.35-7.45) POC pCO2 (35-46) mmHg POC pO2 (80-95) mmHg POC HCO3 (19-24) suellen/L POC Total CO2 (24-31) mmol/L POC Base Excess (-9-1.8) suellen/L ABG pH (Temp Correct) (7.35-7.45) ABG pCO2 (Temp Corrct (35-46) mmHg POC ABG pO2 at Pt Temp POC ABG O2 Sat (90-95) % Alex Test O2 Delivery Device POC O2 Rate Minute Ventilation POC FiO2 % Tidal Volume PEEP POC Sodium (135-144) mmol/L Sodium 134 L (136-145) mmol/L POC Potassium (3.3-5.0) mmol/L Potassium 3.5 (3.5-5.1) mmol/L Chloride 101 (98-107) mmol/L Carbon Dioxide 22 (21-32) mmol/L Anion Gap 11.0 (3-11) BUN 47 H (7-18) mg/dl Creatinine 1.92 H (0.6-1.4) mg/dl Est Cr Clr Drug Dosing 56.9 ml/min Est GFR ( Amer) 42.0 Est GFR (Non-Af Amer) 36.2 BUN/Creatinine Ratio 24.6 H (10-20) Glucose 144 H (70-99) mg/dl Calcium 8.0 L (8.5-10.1) mg/dl Ionized Calcium 1.04 L (1.12-1.32) mmol/L Phosphorus 4.1 (2.5-4.9) mg/dl Magnesium (1.8-2.4) mg/dl Total Bilirubin (0.2-1) mg/dl Direct Bilirubin (0-0.2) mg/dl AST (15-37) U/L ALT (12-78) U/L Alkaline Phosphatase (45-117) U/L Troponin I (0-0.045) ng/ml Total Protein (6.4-8.2) gm/dl Albumin (3.4-5.0) gm/dl 10/25/20 10/25/20 10/25/20 Range/Units 20:46 20:25 20:05 WBC (4.8-10.8) K/uL RBC (4.7-6.1) M/uL Hgb (14.0-18.0) g/dL POC Hgb 10.5 L (14.0-18.0) g/dl Hct (42-52) % POC Hct 31 L (42-52) % MCV (80-100) fL MCH (25-34) pg MCHC (32-36) g/dL RDW Std Deviation (36.4-46.3) fL RDW Coeff of Noam (11.5-14.5) % Plt Count (130-400) K/uL MPV (7.4-10.4) fL Immature Gran % (Auto) % Neut % (Auto) % Lymph % (Auto) % Grand % (Auto) % Eos % (Auto) % Baso % (Auto) % Neut # (Auto) (1.4-6.5) K/uL Lymph # (Auto) (1.2-3.4) K/uL Grand # (Auto) (0.11-0.59) K/uL Eos # (Auto) (0-0.5) K/uL Baso # (Auto) (0-0.2) K/uL Immature Gran # (Auto) (0.00-0.02) K/uL Toxic Vacuolation Polychromasia APTT 121.8 H* (21.0-31.0) Seconds PTT Ratio 4.6 Sample Site Art Line POC pH 7.46 H (7.35-7.45) POC pCO2 31 L (35-46) mmHg POC pO2 89 (80-95) mmHg POC HCO3 22 (19-24) suellen/L POC Total CO2 23 L (24-31) mmol/L POC Base Excess -2.0 (-9-1.8) suellen/L ABG pH (Temp Correct) 7.512 H* (7.35-7.45) ABG pCO2 (Temp Corrct 26 L (35-46) mmHg POC ABG pO2 at Pt Temp 72 POC ABG O2 Sat 97.0 H (90-95) % Alex Test NA O2 Delivery Device Ventilator POC O2 Rate 18 Minute Ventilation 9.9 POC FiO2 30 % Tidal Volume 550 PEEP 8 POC Sodium 133 L (135-144) mmol/L Sodium (136-145) mmol/L POC Potassium 3.6 (3.3-5.0) mmol/L Potassium (3.5-5.1) mmol/L Chloride (98-107) mmol/L Carbon Dioxide (21-32) mmol/L Anion Gap (3-11) BUN (7-18) mg/dl Creatinine (0.6-1.4) mg/dl Est Cr Clr Drug Dosing ml/min Est GFR ( Amer) Est GFR (Non-Af Amer) BUN/Creatinine Ratio (10-20) Glucose (70-99) mg/dl Calcium (8.5-10.1) mg/dl Ionized Calcium 1.04 L (1.12-1.32) mmol/L Phosphorus (2.5-4.9) mg/dl Magnesium (1.8-2.4) mg/dl Total Bilirubin (0.2-1) mg/dl Direct Bilirubin (0-0.2) mg/dl AST (15-37) U/L ALT (12-78) U/L Alkaline Phosphatase (45-117) U/L Troponin I (0-0.045) ng/ml Total Protein (6.4-8.2) gm/dl Albumin (3.4-5.0) gm/dl 10/25/20 10/25/20 10/25/20 Range/Units 20:05 20:05 20:05 WBC (4.8-10.8) K/uL RBC (4.7-6.1) M/uL Hgb (14.0-18.0) g/dL POC Hgb (14.0-18.0) g/dl Hct (42-52) % POC Hct (42-52) % MCV (80-100) fL MCH (25-34) pg MCHC (32-36) g/dL RDW Std Deviation (36.4-46.3) fL RDW Coeff of Noam (11.5-14.5) % Plt Count (130-400) K/uL MPV (7.4-10.4) fL Immature Gran % (Auto) % Neut % (Auto) % Lymph % (Auto) % Grand % (Auto) % Eos % (Auto) % Baso % (Auto) % Neut # (Auto) (1.4-6.5) K/uL Lymph # (Auto) (1.2-3.4) K/uL Grand # (Auto) (0.11-0.59) K/uL Eos # (Auto) (0-0.5) K/uL Baso # (Auto) (0-0.2) K/uL Immature Gran # (Auto) (0.00-0.02) K/uL Toxic Vacuolation Polychromasia APTT (21.0-31.0) Seconds PTT Ratio Sample Site POC pH (7.35-7.45) POC pCO2 (35-46) mmHg POC pO2 (80-95) mmHg POC HCO3 (19-24) suellen/L POC Total CO2 (24-31) mmol/L POC Base Excess (-9-1.8) suellen/L ABG pH (Temp Correct) (7.35-7.45) ABG pCO2 (Temp Corrct (35-46) mmHg POC ABG pO2 at Pt Temp POC ABG O2 Sat (90-95) % Alex Test O2 Delivery Device POC O2 Rate Minute Ventilation POC FiO2 % Tidal Volume PEEP POC Sodium (135-144) mmol/L Sodium 133 L (136-145) mmol/L POC Potassium (3.3-5.0) mmol/L Potassium 3.6 (3.5-5.1) mmol/L Chloride 100 (98-107) mmol/L Carbon Dioxide 22 (21-32) mmol/L Anion Gap 11.0 (3-11) BUN 48 H (7-18) mg/dl Creatinine 2.04 H D (0.6-1.4) mg/dl Est Cr Clr Drug Dosing 53.6 ml/min Est GFR ( Amer) 39.0 Est GFR (Non-Af Amer) 33.7 BUN/Creatinine Ratio 23.6 H (10-20) Glucose 163 H (70-99) mg/dl Calcium 8.2 L (8.5-10.1) mg/dl Ionized Calcium Cancelled (1.12-1.32) mmol/L Phosphorus 4.2 D (2.5-4.9) mg/dl Magnesium 2.3 (1.8-2.4) mg/dl Total Bilirubin (0.2-1) mg/dl Direct Bilirubin (0-0.2) mg/dl AST (15-37) U/L ALT (12-78) U/L Alkaline Phosphatase (45-117) U/L Troponin I 0.136 H* (0-0.045) ng/ml Total Protein (6.4-8.2) gm/dl Albumin (3.4-5.0) gm/dl 10/25/20 10/25/20 10/25/20 Range/Units 20:05 15:04 14:43 WBC (4.8-10.8) K/uL RBC (4.7-6.1) M/uL Hgb 9.8 L (14.0-18.0) g/dL POC Hgb 9.9 L (14.0-18.0) g/dl Hct 30.5 L (42-52) % POC Hct 29 L (42-52) % MCV (80-100) fL MCH (25-34) pg MCHC (32-36) g/dL RDW Std Deviation (36.4-46.3) fL RDW Coeff of Noam (11.5-14.5) % Plt Count (130-400) K/uL MPV (7.4-10.4) fL Immature Gran % (Auto) % Neut % (Auto) % Lymph % (Auto) % Grand % (Auto) % Eos % (Auto) % Baso % (Auto) % Neut # (Auto) (1.4-6.5) K/uL Lymph # (Auto) (1.2-3.4) K/uL Grand # (Auto) (0.11-0.59) K/uL Eos # (Auto) (0-0.5) K/uL Baso # (Auto) (0-0.2) K/uL Immature Gran # (Auto) (0.00-0.02) K/uL Toxic Vacuolation Polychromasia APTT (21.0-31.0) Seconds PTT Ratio Sample Site Art Line POC pH 7.42 (7.35-7.45) POC pCO2 33 L (35-46) mmHg POC pO2 110 H (80-95) mmHg POC HCO3 22 (19-24) suellen/L POC Total CO2 23 L (24-31) mmol/L POC Base Excess -3.0 (-9-1.8) suellen/L ABG pH (Temp Correct) 7.475 H (7.35-7.45) ABG pCO2 (Temp Corrct 28 L (35-46) mmHg POC ABG pO2 at Pt Temp 90 POC ABG O2 Sat 98.0 H (90-95) % Alex Test NA O2 Delivery Device Ventilator POC O2 Rate 18 Minute Ventilation POC FiO2 30 % Tidal Volume 550 PEEP 8 POC Sodium 131 L (135-144) mmol/L Sodium (136-145) mmol/L POC Potassium 3.3 (3.3-5.0) mmol/L Potassium (3.5-5.1) mmol/L Chloride (98-107) mmol/L Carbon Dioxide (21-32) mmol/L Anion Gap (3-11) BUN (7-18) mg/dl Creatinine (0.6-1.4) mg/dl Est Cr Clr Drug Dosing ml/min Est GFR ( Amer) Est GFR (Non-Af Amer) BUN/Creatinine Ratio (10-20) Glucose (70-99) mg/dl Calcium (8.5-10.1) mg/dl Ionized Calcium (1.12-1.32) mmol/L Phosphorus (2.5-4.9) mg/dl Magnesium 2.5 H (1.8-2.4) mg/dl Total Bilirubin (0.2-1) mg/dl Direct Bilirubin (0-0.2) mg/dl AST (15-37) U/L ALT (12-78) U/L Alkaline Phosphatase (45-117) U/L Troponin I (0-0.045) ng/ml Total Protein (6.4-8.2) gm/dl Albumin (3.4-5.0) gm/dl 10/25/20 10/25/20 10/25/20 Range/Units 14:43 14:43 14:43 WBC (4.8-10.8) K/uL RBC (4.7-6.1) M/uL Hgb 9.2 L (14.0-18.0) g/dL POC Hgb (14.0-18.0) g/dl Hct 29.0 L (42-52) % POC Hct (42-52) % MCV (80-100) fL MCH (25-34) pg MCHC (32-36) g/dL RDW Std Deviation (36.4-46.3) fL RDW Coeff of Noam (11.5-14.5) % Plt Count (130-400) K/uL MPV (7.4-10.4) fL Immature Gran % (Auto) % Neut % (Auto) % Lymph % (Auto) % Grand % (Auto) % Eos % (Auto) % Baso % (Auto) % Neut # (Auto) (1.4-6.5) K/uL Lymph # (Auto) (1.2-3.4) K/uL Grand # (Auto) (0.11-0.59) K/uL Eos # (Auto) (0-0.5) K/uL Baso # (Auto) (0-0.2) K/uL Immature Gran # (Auto) (0.00-0.02) K/uL Toxic Vacuolation Polychromasia APTT (21.0-31.0) Seconds PTT Ratio Sample Site POC pH (7.35-7.45) POC pCO2 (35-46) mmHg POC pO2 (80-95) mmHg POC HCO3 (19-24) suellen/L POC Total CO2 (24-31) mmol/L POC Base Excess (-9-1.8) suellen/L ABG pH (Temp Correct) (7.35-7.45) ABG pCO2 (Temp Corrct (35-46) mmHg POC ABG pO2 at Pt Temp POC ABG O2 Sat (90-95) % Alex Test O2 Delivery Device POC O2 Rate Minute Ventilation POC FiO2 % Tidal Volume PEEP POC Sodium (135-144) mmol/L Sodium 133 L (136-145) mmol/L POC Potassium (3.3-5.0) mmol/L Potassium 3.5 (3.5-5.1) mmol/L Chloride 98 (98-107) mmol/L Carbon Dioxide 23 (21-32) mmol/L Anion Gap 12.0 H (3-11) BUN 54 H (7-18) mg/dl Creatinine 2.45 H (0.6-1.4) mg/dl Est Cr Clr Drug Dosing 44.6 ml/min Est GFR ( Amer) 31.3 Est GFR (Non-Af Amer) 27.0 BUN/Creatinine Ratio 22.0 H (10-20) Glucose 183 H (70-99) mg/dl Calcium 7.9 L (8.5-10.1) mg/dl Ionized Calcium 1.03 L (1.12-1.32) mmol/L Phosphorus 6.4 H (2.5-4.9) mg/dl Magnesium (1.8-2.4) mg/dl Total Bilirubin (0.2-1) mg/dl Direct Bilirubin (0-0.2) mg/dl AST (15-37) U/L ALT (12-78) U/L Alkaline Phosphatase (45-117) U/L Troponin I (0-0.045) ng/ml Total Protein (6.4-8.2) gm/dl Albumin (3.4-5.0) gm/dl 10/25/20 10/25/20 10/25/20 Range/Units 12:18 10:45 10:45 WBC (4.8-10.8) K/uL RBC (4.7-6.1) M/uL Hgb (14.0-18.0) g/dL POC Hgb 12.9 L (14.0-18.0) g/dl Hct (42-52) % POC Hct 38 L (42-52) % MCV (80-100) fL MCH (25-34) pg MCHC (32-36) g/dL RDW Std Deviation (36.4-46.3) fL RDW Coeff of Noam (11.5-14.5) % Plt Count (130-400) K/uL MPV (7.4-10.4) fL Immature Gran % (Auto) % Neut % (Auto) % Lymph % (Auto) % Grand % (Auto) % Eos % (Auto) % Baso % (Auto) % Neut # (Auto) (1.4-6.5) K/uL Lymph # (Auto) (1.2-3.4) K/uL Grand # (Auto) (0.11-0.59) K/uL Eos # (Auto) (0-0.5) K/uL Baso # (Auto) (0-0.2) K/uL Immature Gran # (Auto) (0.00-0.02) K/uL Toxic Vacuolation Polychromasia APTT (21.0-31.0) Seconds PTT Ratio Sample Site Art Line POC pH 7.06 L* (7.35-7.45) POC pCO2 79 H (35-46) mmHg POC pO2 133 H (80-95) mmHg POC HCO3 23 (19-24) suellen/L POC Total CO2 25 (24-31) mmol/L POC Base Excess -8.0 (-9-1.8) suellen/L ABG pH (Temp Correct) 7.098 L* (7.35-7.45) ABG pCO2 (Temp Corrct 70 H (35-46) mmHg POC ABG pO2 at Pt Temp 118 POC ABG O2 Sat 97.0 H (90-95) % Alex Test NA O2 Delivery Device Ventilator POC O2 Rate 18 Minute Ventilation POC FiO2 100 % Tidal Volume 550 PEEP 8 POC Sodium 130 L (135-144) mmol/L Sodium (136-145) mmol/L POC Potassium 4.3 (3.3-5.0) mmol/L Potassium (3.5-5.1) mmol/L Chloride (98-107) mmol/L Carbon Dioxide (21-32) mmol/L Anion Gap (3-11) BUN (7-18) mg/dl Creatinine (0.6-1.4) mg/dl Est Cr Clr Drug Dosing ml/min Est GFR ( Amer) Est GFR (Non-Af Amer) BUN/Creatinine Ratio (10-20) Glucose (70-99) mg/dl Calcium (8.5-10.1) mg/dl Ionized Calcium 1.01 L (1.12-1.32) mmol/L Phosphorus (2.5-4.9) mg/dl Magnesium 2.5 H (1.8-2.4) mg/dl Total Bilirubin (0.2-1) mg/dl Direct Bilirubin (0-0.2) mg/dl AST (15-37) U/L ALT (12-78) U/L Alkaline Phosphatase (45-117) U/L Troponin I (0-0.045) ng/ml Total Protein (6.4-8.2) gm/dl Albumin (3.4-5.0) gm/dl 10/25/20 10/25/20 10/25/20 Range/Units 10:45 10:45 07:15 WBC (4.8-10.8) K/uL RBC (4.7-6.1) M/uL Hgb 8.4 L (14.0-18.0) g/dL POC Hgb (14.0-18.0) g/dl Hct 26.5 L (42-52) % POC Hct (42-52) % MCV (80-100) fL MCH (25-34) pg MCHC (32-36) g/dL RDW Std Deviation (36.4-46.3) fL RDW Coeff of Noam (11.5-14.5) % Plt Count (130-400) K/uL MPV (7.4-10.4) fL Immature Gran % (Auto) % Neut % (Auto) % Lymph % (Auto) % Grand % (Auto) % Eos % (Auto) % Baso % (Auto) % Neut # (Auto) (1.4-6.5) K/uL Lymph # (Auto) (1.2-3.4) K/uL Grand # (Auto) (0.11-0.59) K/uL Eos # (Auto) (0-0.5) K/uL Baso # (Auto) (0-0.2) K/uL Immature Gran # (Auto) (0.00-0.02) K/uL Toxic Vacuolation Polychromasia APTT (21.0-31.0) Seconds PTT Ratio Sample Site POC pH (7.35-7.45) POC pCO2 (35-46) mmHg POC pO2 (80-95) mmHg POC HCO3 (19-24) suellen/L POC Total CO2 (24-31) mmol/L POC Base Excess (-9-1.8) suellen/L ABG pH (Temp Correct) (7.35-7.45) ABG pCO2 (Temp Corrct (35-46) mmHg POC ABG pO2 at Pt Temp POC ABG O2 Sat (90-95) % Alex Test O2 Delivery Device POC O2 Rate Minute Ventilation POC FiO2 % Tidal Volume PEEP POC Sodium (135-144) mmol/L Sodium 131 L (136-145) mmol/L POC Potassium (3.3-5.0) mmol/L Potassium 3.5 (3.5-5.1) mmol/L Chloride 99 (98-107) mmol/L Carbon Dioxide 23 (21-32) mmol/L Anion Gap 9.0 (3-11) BUN 55 H (7-18) mg/dl Creatinine 2.54 H (0.6-1.4) mg/dl Est Cr Clr Drug Dosing 43.0 ml/min Est GFR ( Amer) 29.9 Est GFR (Non-Af Amer) 25.8 BUN/Creatinine Ratio 21.7 H (10-20) Glucose 172 H (70-99) mg/dl Calcium 7.9 L (8.5-10.1) mg/dl Ionized Calcium (1.12-1.32) mmol/L Phosphorus 5.7 H (2.5-4.9) mg/dl Magnesium 2.6 H (1.8-2.4) mg/dl Total Bilirubin (0.2-1) mg/dl Direct Bilirubin (0-0.2) mg/dl AST (15-37) U/L ALT (12-78) U/L Alkaline Phosphatase (45-117) U/L Troponin I 0.304 H* (0-0.045) ng/ml Total Protein (6.4-8.2) gm/dl Albumin (3.4-5.0) gm/dl 10/25/20 10/25/20 Range/Units 07:15 07:15 WBC (4.8-10.8) K/uL RBC (4.7-6.1) M/uL Hgb (14.0-18.0) g/dL POC Hgb (14.0-18.0) g/dl Hct (42-52) % POC Hct (42-52) % MCV (80-100) fL MCH (25-34) pg MCHC (32-36) g/dL RDW Std Deviation (36.4-46.3) fL RDW Coeff of Noam (11.5-14.5) % Plt Count (130-400) K/uL MPV (7.4-10.4) fL Immature Gran % (Auto) % Neut % (Auto) % Lymph % (Auto) % Grand % (Auto) % Eos % (Auto) % Baso % (Auto) % Neut # (Auto) (1.4-6.5) K/uL Lymph # (Auto) (1.2-3.4) K/uL Grand # (Auto) (0.11-0.59) K/uL Eos # (Auto) (0-0.5) K/uL Baso # (Auto) (0-0.2) K/uL Immature Gran # (Auto) (0.00-0.02) K/uL Toxic Vacuolation Polychromasia APTT (21.0-31.0) Seconds PTT Ratio Sample Site POC pH (7.35-7.45) POC pCO2 (35-46) mmHg POC pO2 (80-95) mmHg POC HCO3 (19-24) suellen/L POC Total CO2 (24-31) mmol/L POC Base Excess (-9-1.8) suellen/L ABG pH (Temp Correct) (7.35-7.45) ABG pCO2 (Temp Corrct (35-46) mmHg POC ABG pO2 at Pt Temp POC ABG O2 Sat (90-95) % Alex Test O2 Delivery Device POC O2 Rate Minute Ventilation POC FiO2 % Tidal Volume PEEP POC Sodium (135-144) mmol/L Sodium 130 L (136-145) mmol/L POC Potassium (3.3-5.0) mmol/L Potassium 4.0 (3.5-5.1) mmol/L Chloride 95 L (98-107) mmol/L Carbon Dioxide 22 (21-32) mmol/L Anion Gap 13.0 H (3-11) BUN 51 H (7-18) mg/dl Creatinine 2.78 H (0.6-1.4) mg/dl Est Cr Clr Drug Dosing 39.3 ml/min Est GFR ( Amer) 26.9 Est GFR (Non-Af Amer) 23.2 BUN/Creatinine Ratio 18.2 (10-20) Glucose 164 H (70-99) mg/dl Calcium 8.8 (8.5-10.1) mg/dl Ionized Calcium 1.03 L (1.12-1.32) mmol/L Phosphorus 6.4 H (2.5-4.9) mg/dl Magnesium (1.8-2.4) mg/dl Total Bilirubin (0.2-1) mg/dl Direct Bilirubin (0-0.2) mg/dl AST (15-37) U/L ALT (12-78) U/L Alkaline Phosphatase (45-117) U/L Troponin I (0-0.045) ng/ml Total Protein (6.4-8.2) gm/dl Albumin (3.4-5.0) gm/dl Medications Administered Current Inpatient Medications Fentanyl Citrate (Fentanyl Bolus From Bag) 50 mcg IV Q60M PRN PRN Reason: Pain or Agitation Stop: 11/07/20 22:29 Gabapentin (Gabapentin 250 Mg/5 Ml 470 Ml Btl) 600 mg NG Q24H [facility] Stop: 10/27/20 00:01 Guaifenesin (Guaifenesin 600 Mg Tabcr) 600 mg PO Q12 [facility] Stop: 11/22/20 20:59 Last Admin: 10/25/20 21:55 Dose: 600 mg Documented by: Lorazepam (Ativan) 1 mg in 2 mls @ 2 mls/min IV UD PRN; Protocol PRN Reason: EtOH Withdrawl AWSS Score 6,7 Stop: 11/22/20 01:12 Thiamine HCl 100 mg/ Syringe 10 mls @ 2 mls/min IV QAM [facility] Stop: 11/22/20 08:59 Last Admin: 10/25/20 08:26 Dose: 2 mls/min Documented by: Folic Acid 1 mg/ Syringe 10 mls @ 5 mls/min IV QAM [facility] Stop: 11/22/20 08:59 Last Admin: 10/25/20 08:26 Dose: 5 mls/min Documented by: Lorazepam (Ativan) 2 mg in 4 mls @ 4 mls/min IV UD PRN; Protocol PRN Reason: EtOH Withdrawl AWSS Score 8,9 Stop: 11/22/20 01:12 Last Admin: 10/24/20 21:21 Dose: 4 mls/min Documented by: Lorazepam (Ativan) 3 mg in 6 mls @ 4 mls/min IV ONCE PRN; Protocol PRN Reason: EtOH Withdrawl AWSS Score >=10 Stop: 11/22/20 01:12 Doxycycline Hyclate 100 mg/ (Dextrose) 110 mls @ 50 mls/hr IV Q12H [facility] Stop: 10/30/20 08:59 Last Infusion: 10/26/20 00:30 Dose: Infused Documented by: Furosemide 40 mg/ Syringe 4 mls @ 4 mls/min IV DAILY [facility] Stop: 11/22/20 08:59 Last Admin: 10/23/20 08:36 Dose: 4 mls/min Documented by: Piperacillin Sod/Tazobactam (Sod 4.5 gm/ Dextrose) 120 mls @ 30 mls/hr IV Q8H [facility]; Protocol Stop: 10/31/20 00:00 Last Infusion: 10/26/20 04:58 Dose: Infused Documented by: Parenteral Electrolytes (Normosol-R) 1,000 mls @ 80 mls/hr IV .[id number] [facility] Stop: 11/23/20 22:29 Last Admin: 10/26/20 05:55 Dose: 80 mls/hr Documented by: Midazolam HCl (Versed) 125 mg in 250 mls @ 8 mls/hr IV .[id number] PRN; Protocol PRN Reason: Agitation Stop: 11/23/20 22:29 Last Titration: 10/26/20 06:48 Dose: 4 mg/hr, 8 mls/hr Documented by: Fentanyl Citrate (Fentanyl Drip) 1,250 mcg in 250 mls @ 30 mls/hr IV .[id number] [facility]; Protocol Stop: 11/07/20 22:29 Last Titration: 10/26/20 06:48 Dose: 150 mcg/hr, 30 mls/hr Documented by: Norepinephrine Bitartrate (Levophed/D5w) 8 mg in 508 mls @ 23.089 mls/hr IV .Q22H1M [facility]; Protocol Stop: 11/23/20 23:44 Last Admin: 10/25/20 21:54 Dose: Not Given Documented by: Cisatracurium Besylate 40 mg/ (Sodium Chloride) 100 mls @ 12.726 mls/hr IV .Q7H52M [facility]; Protocol Stop: 11/24/20 02:59 Last Titration: 10/26/20 06:48 Dose: 0.7 mcg/kg/min, 12.7 mls/hr Documented by: Pantoprazole Sodium 40 mg/ (Syringe) 10 mls @ 5 mls/min IV DAILY@1100 [facility] Stop: 11/24/20 10:59 Last Admin: 10/25/20 08:26 Dose: 5 mls/min Documented by: Dopamine HCl/Dextrose (Dopamine / D5w) 400 mg in 250 mls @ 12.722 mls/hr IV .[id number] [facility]; Protocol Stop: 11/24/20 11:44 Last Titration: 10/26/20 06:48 Dose: 2.5 mcg/kg/min, 12.7 mls/hr Documented by: Heparin Sodium/Dextrose (Heparin Sodium/Dextrose) 25,000 units in 500 mls @ 0 mls/hr IV .Q0M [facility]; Protocol Stop: 11/24/20 13:29 Last Titration: 10/26/20 06:48 Dose: 0 units/hr, 0 mls/hr Documented by: Potassium Chloride (K Jesus / Wtr) 20 meq in 100 mls @ 50 mls/hr IV Q2H [facility] Stop: 10/26/20 09:44 Last Admin: 10/26/20 05:55 Dose: 50 mls/hr Documented by: Metoprolol Tartrate (Metoprolol Tartrate 1 Mg/Ml Vial) 5 mg IV Q6 PRN PRN Reason: Hypertension Stop: 11/22/20 01:12 Midazolam HCl (Midazolam Bolus From Bag) 2 mg IV Q60M PRN PRN Reason: Sedation Stop: 11/23/20 22:29 Miscellaneous ([facility] Protocol For Hyperglycemia) 1 ea N/A PRN PRN; Protocol PRN Reason: Hyperglycemia Protocol Stop: 10/26/20 22:23 Miscellaneous Information (Piperacill/Tazobac Consult Active) 1 ea N/A UD PRN PRN Reason: Consult Stop: 11/22/20 18:26 Nitroglycerin (Nitroglycerin Sl 0.4 Mg/Tab Tab) 0.4 mg SL UD PRN PRN Reason: Chest Pain Stop: 11/22/20 01:12 (1) Pneumonia Laterality: right Lung location: lower lobe of lung Pneumonia type: due to unspecified organism Qualified Code(s): J18.9 - Pneumonia, unspecified organism
[2020-10-26] MEDS: FOLIC ACID 1 MG in SYRINGE 9.8 ML IV SCH (07:41)
[2020-10-26] MEDS: DOXYCYCLINE HYCLATE 100 MG in DEXTROSE 5% 100 ML IV SCH ×2 (07:41→21:41)
[2020-10-26] MEDS: THIAMINE HCL 100 MG in SYRINGE 9 ML IV SCH (07:41)
[2020-10-26] MEDS: PANTOprazole 40 MG in SYRINGE 0 ML IV SCH (07:41)
[2020-10-26] MEDS: HEPARIN SODIUM/DEXTROSE 25,000 UNITS/500 ML BAG IV SCH (07:42)
[2020-10-26] MEDS: guaiFENesin 600 MG TABCR PO SCH ×2 (07:43→21:40)
[2020-10-26 08:33] LABS: Hematocrit (blood only) 30.7 % (42-52); Hemoglobin 10.1 g/dL (14.0-18.0)
[2020-10-26 08:41] LABS: BUN Creatinine Ratio 25.5 (10-20); Calcium 8.1 mg/dl (8.5-10.1); Creatinine Clr Calc Pharmacy 63.7 ml/min; Est GFR (African American) 49.4; Est GFR (Non-African American) 42.6; Magnesium 2.4 mg/dl (1.8-2.4); Phosphorus 3.4 mg/dl (2.5-4.9); Potassium 3.7 mmol/L (3.5-5.1)
--- NOTE | 2020-10-26 08:41 | Critical Care Progress Note ---
Date of Service October 26, 2020 Assessment & Plan (1) Cardiac arrest: Reason critically ill: 5-year-old male status post in-hospital cardiac arrest with ROSC requiring close hemodynamic monitoring and initiation of therapeutic hypothermia protocol Neuro: -[facility] ICU: Unable to access -EEG demonstrating severe background suppression consistent with severe nonspecific encephalopathy -Alcohol abuse: -Continue sedation with Versed -CT head demonstrating no acute intracranial abnormality -Continue sedation with fentanyl, Versed, Nimbex Cardiac/Vascular: -In-hospital cardiac arrest with ROSC -Estimated downtime approximately 10 minutes -Continue therapeutic hypothermia protocol -A. fib with RVR -Currently in sinus rhythm -Continue amiodarone -Cardiology consulted -Continue to monitor on telemetry Respiratory: -Respiratory failure -Secondary to cardiac arrest, intubated during code -Following completion of therapeutic hypothermia protocol will wean ventilator settings as tolerated GI/Nutrition: -N.p.o. -Continue Protonix Renal/Lytes: -Acute kidney injury superimposed on chronic kidney disease -Continue IV Normosol@80 mL/hr -Continue to monitor BMPs, Mg, Phos, and iCal q4h : -Brock in place -Continue to monitor strict I's and O's ENDO: -History of type 2 diabetes -Continue management per ICU glycemic protocol HEME: -Hgb stable at 9.3 this a.m. -Continue to monitor ID: -Continue current regimen of doxycycline and Zosyn -Blood cultures x2 pending Lines/IV Access: -PIV x2 -Right IJ DVT Prophylaxis: -Heparin drip as recommended by cardiology (2) Respiratory failure: (3) Acute on chronic renal failure: (4) Chronic diastolic heart failure: (5) Acute diastolic (congestive) heart failure: (6) Pneumonia: (7) Shortness of breath: (8) Depression: Admission and Anticipated Discharge Date Admission Date: October 23, 2020 Subjective No overnight events, continued Nimbex infusion Review of Systems Review of Systems: Unobtainable due to endotracheal tube Physical Exam Physical Exam: General: Alert. nontoxic. 3 TP Skin: Cool, dry, Head: Atraumatic Ears, nose, mouth and throat: Obscured by endotracheal tube Cardiovascular: Normal peripheral perfusion Respiratory: Ventilator settings reviewed Gastrointestinal: Non distended Musculoskeletal: No deformity Constitutional: + obese, + disheveled and + mechanically ventilated Eyes: PERRL, conjunctivae normal, anicteric sclerae Respiratory: symmetric chest movement Auscultation: + rhonchi; no crackles, no rales and no wheezes Cardiovascular: Rate/Rhythm: regular rate and regular rhythm Heart Sounds: no gallop, no murmur and no cardiac rub Vessels: no JVD Extremities: + edema Gastrointestinal (Abdomen): Inspection/Auscultation: abdomen normal to inspection and normal bowel sounds; abdomen not distended and no abdominal edema Skin: Diffuse patches with scaling to bilateral lower extremities with venous stasis changes bilateral lower extremities Psychiatric: Orientation: + not alert Apperance: + disheveled Results & Data Results & Data ([facility]) Vital Signs (Past 12 Hours) Vital Signs Temp Pulse Resp BP BP BP Pulse Ox 10/26/20 08:00 33.1 C L 52 L 16 110/54 L 95/65 L 135/64 100 10/26/20 07:00 33.5 C L 54 L 16 107/72 130/63 100 10/26/20 06:00 33.6 C L 47 L 16 110/69 128/65 100 10/26/20 05:00 33.6 C L 51 L 16 134/64 137/64 100 10/26/20 04:00 33.5 C L 51 L 16 115/57 L 134/88 115/57 L 100 10/26/20 03:14 40 L 16 100 10/26/20 03:00 33.5 C L 46 L 16 106/71 118/56 L 100 10/26/20 02:00 33.4 C L 50 L 16 96/70 L 121/56 L 100 10/26/20 01:00 33.4 C L 45 L 16 108/74 124/58 L 100 10/26/20 00:00 33.5 C L 54 L 16 133/64 110/83 141/62 H 100 10/25/20 23:18 46 L 18 100 10/25/20 23:00 33.5 C L 43 L 16 123/77 147/74 H 100 10/25/20 22:00 33.5 C L 42 L 18 135/91 138/65 100 10/25/20 21:00 33.5 C L 54 L 18 137/81 153/68 H 100 Laboratory Results 10/26/20 10/26/20 10/26/20 Range/Units 07:55 07:55 07:55 WBC (4.8-10.8) K/uL RBC (4.7-6.1) M/uL Hgb 10.1 L (14.0-18.0) g/dL POC Hgb (14.0-18.0) g/dl Hct 30.7 L (42-52) % POC Hct (42-52) % MCV (80-100) fL MCH (25-34) pg MCHC (32-36) g/dL RDW Std Deviation (36.4-46.3) fL RDW Coeff of Noam (11.5-14.5) % Plt Count (130-400) K/uL MPV (7.4-10.4) fL Immature Gran % (Auto) % Neut % (Auto) % Lymph % (Auto) % Blair % (Auto) % Eos % (Auto) % Baso % (Auto) % Neut # (Auto) (1.4-6.5) K/uL Lymph # (Auto) (1.2-3.4) K/uL Blair # (Auto) (0.11-0.59) K/uL Eos # (Auto) (0-0.5) K/uL Baso # (Auto) (0-0.2) K/uL Immature Gran # (Auto) (0.00-0.02) K/uL Toxic Vacuolation Polychromasia APTT (21.0-31.0) Seconds PTT Ratio Sample Site POC pH (7.35-7.45) POC pCO2 (35-46) mmHg POC pO2 (80-95) mmHg POC HCO3 (19-24) suellen/L POC Total CO2 (24-31) mmol/L POC Base Excess (-9-1.8) suellen/L ABG pH (Temp Correct) (7.35-7.45) ABG pCO2 (Temp Corrct (35-46) mmHg POC ABG pO2 at Pt Temp POC ABG O2 Sat (90-95) % Alex Test O2 Delivery Device POC O2 Rate Minute Ventilation POC FiO2 % Tidal Volume PEEP POC Sodium (135-144) mmol/L Sodium Pending (136-145) mmol/L POC Potassium (3.3-5.0) mmol/L Potassium Pending (3.5-5.1) mmol/L Chloride Pending (98-107) mmol/L Carbon Dioxide Pending (21-32) mmol/L Anion Gap Pending (3-11) BUN Pending (7-18) mg/dl Creatinine Pending (0.6-1.4) mg/dl Est Cr Clr Drug Dosing Pending ml/min Est GFR ( Amer) Pending Est GFR (Non-Af Amer) Pending BUN/Creatinine Ratio Pending (10-20) Glucose Pending (70-99) mg/dl Calcium Pending (8.5-10.1) mg/dl Ionized Calcium 1.06 L (1.12-1.32) mmol/L Phosphorus Pending (2.5-4.9) mg/dl Magnesium Pending (1.8-2.4) mg/dl Total Bilirubin (0.2-1) mg/dl Direct Bilirubin (0-0.2) mg/dl AST (15-37) U/L ALT (12-78) U/L Alkaline Phosphatase (45-117) U/L Troponin I (0-0.045) ng/ml Total Protein (6.4-8.2) gm/dl Albumin (3.4-5.0) gm/dl 10/26/20 10/26/20 10/26/20 Range/Units 05:04 05:04 05:04 WBC 6.14 (4.8-10.8) K/uL RBC 4.30 L (4.7-6.1) M/uL Hgb 10.3 L (14.0-18.0) g/dL POC Hgb (14.0-18.0) g/dl Hct 32.2 L (42-52) % POC Hct (42-52) % MCV 74.9 L (80-100) fL MCH 24.0 L (25-34) pg MCHC 32.0 (32-36) g/dL RDW Std Deviation 46.2 (36.4-46.3) fL RDW Coeff of Noam 16.9 H (11.5-14.5) % Plt Count 112 L (130-400) K/uL MPV 10.3 (7.4-10.4) fL Immature Gran % (Auto) 3.3 % Neut % (Auto) 74.2 % Lymph % (Auto) 12.2 % Blair % (Auto) 9.8 % Eos % (Auto) 0.3 % Baso % (Auto) 0.2 % Neut # (Auto) 4.56 (1.4-6.5) K/uL Lymph # (Auto) 0.75 L (1.2-3.4) K/uL Blair # (Auto) 0.60 H (0.11-0.59) K/uL Eos # (Auto) 0.02 (0-0.5) K/uL Baso # (Auto) 0.01 (0-0.2) K/uL Immature Gran # (Auto) 0.20 H (0.00-0.02) K/uL Toxic Vacuolation 1+ Polychromasia 1+ APTT 86.8 H* (21.0-31.0) Seconds PTT Ratio 3.3 Sample Site POC pH (7.35-7.45) POC pCO2 (35-46) mmHg POC pO2 (80-95) mmHg POC HCO3 (19-24) suellen/L POC Total CO2 (24-31) mmol/L POC Base Excess (-9-1.8) suellen/L ABG pH (Temp Correct) (7.35-7.45) ABG pCO2 (Temp Corrct (35-46) mmHg POC ABG pO2 at Pt Temp POC ABG O2 Sat (90-95) % Alex Test O2 Delivery Device POC O2 Rate Minute Ventilation POC FiO2 % Tidal Volume PEEP POC Sodium (135-144) mmol/L Sodium 135 L (136-145) mmol/L POC Potassium (3.3-5.0) mmol/L Potassium 3.2 L (3.5-5.1) mmol/L Chloride 103 (98-107) mmol/L Carbon Dioxide 26 (21-32) mmol/L Anion Gap 6.0 (3-11) BUN 47 H (7-18) mg/dl Creatinine 1.76 H (0.6-1.4) mg/dl Est Cr Clr Drug Dosing 62.1 ml/min Est GFR ( Amer) 46.7 Est GFR (Non-Af Amer) 40.3 BUN/Creatinine Ratio 26.9 H (10-20) Glucose 139 H (70-99) mg/dl Calcium 7.6 L (8.5-10.1) mg/dl Ionized Calcium (1.12-1.32) mmol/L Phosphorus 3.8 (2.5-4.9) mg/dl Magnesium 2.5 H (1.8-2.4) mg/dl Total Bilirubin 1.5 H (0.2-1) mg/dl Direct Bilirubin 1.0 H (0-0.2) mg/dl AST 61 H (15-37) U/L ALT 37 (12-78) U/L Alkaline Phosphatase 68 (45-117) U/L Troponin I (0-0.045) ng/ml Total Protein 6.2 L (6.4-8.2) gm/dl Albumin 2.3 L (3.4-5.0) gm/dl 10/26/20 10/26/20 10/25/20 Range/Units 03:22 00:47 23:14 WBC (4.8-10.8) K/uL RBC (4.7-6.1) M/uL Hgb (14.0-18.0) g/dL POC Hgb 10.5 L 10.9 L (14.0-18.0) g/dl Hct (42-52) % POC Hct 31 L 32 L (42-52) % MCV (80-100) fL MCH (25-34) pg MCHC (32-36) g/dL RDW Std Deviation (36.4-46.3) fL RDW Coeff of Noam (11.5-14.5) % Plt Count (130-400) K/uL MPV (7.4-10.4) fL Immature Gran % (Auto) % Neut % (Auto) % Lymph % (Auto) % Blair % (Auto) % Eos % (Auto) % Baso % (Auto) % Neut # (Auto) (1.4-6.5) K/uL Lymph # (Auto) (1.2-3.4) K/uL Blair # (Auto) (0.11-0.59) K/uL Eos # (Auto) (0-0.5) K/uL Baso # (Auto) (0-0.2) K/uL Immature Gran # (Auto) (0.00-0.02) K/uL Toxic Vacuolation Polychromasia APTT (21.0-31.0) Seconds PTT Ratio Sample Site Art Line Art Line POC pH 7.41 7.44 (7.35-7.45) POC pCO2 38 34 L (35-46) mmHg POC pO2 140 H 121 H (80-95) mmHg POC HCO3 24 23 (19-24) suellen/L POC Total CO2 26 24 (24-31) mmol/L POC Base Excess 0.0 -1.0 (-9-1.8) suellen/L ABG pH (Temp Correct) 7.464 H 7.493 H (7.35-7.45) ABG pCO2 (Temp Corrct 33 L 29 L (35-46) mmHg POC ABG pO2 at Pt Temp 120 101 POC ABG O2 Sat 99.0 H 99.0 H (90-95) % Alex Test NA NA O2 Delivery Device Ventilator Ventilator POC O2 Rate 16 18 Minute Ventilation 8.0 9.0 POC FiO2 100 30 % Tidal Volume 500 500 PEEP 8 8 POC Sodium 133 L 133 L (135-144) mmol/L Sodium (136-145) mmol/L POC Potassium 3.2 L 3.4 (3.3-5.0) mmol/L Potassium (3.5-5.1) mmol/L Chloride (98-107) mmol/L Carbon Dioxide (21-32) mmol/L Anion Gap (3-11) BUN (7-18) mg/dl Creatinine (0.6-1.4) mg/dl Est Cr Clr Drug Dosing ml/min Est GFR ( Amer) Est GFR (Non-Af Amer) BUN/Creatinine Ratio (10-20) Glucose (70-99) mg/dl Calcium (8.5-10.1) mg/dl Ionized Calcium (1.12-1.32) mmol/L Phosphorus (2.5-4.9) mg/dl Magnesium 2.3 (1.8-2.4) mg/dl Total Bilirubin (0.2-1) mg/dl Direct Bilirubin (0-0.2) mg/dl AST (15-37) U/L ALT (12-78) U/L Alkaline Phosphatase (45-117) U/L Troponin I (0-0.045) ng/ml Total Protein (6.4-8.2) gm/dl Albumin (3.4-5.0) gm/dl 10/25/20 10/25/20 10/25/20 Range/Units 22:31 22:31 22:31 WBC (4.8-10.8) K/uL RBC (4.7-6.1) M/uL Hgb 9.9 L (14.0-18.0) g/dL POC Hgb (14.0-18.0) g/dl Hct 31.2 L (42-52) % POC Hct (42-52) % MCV (80-100) fL MCH (25-34) pg MCHC (32-36) g/dL RDW Std Deviation (36.4-46.3) fL RDW Coeff of Noam (11.5-14.5) % Plt Count (130-400) K/uL MPV (7.4-10.4) fL Immature Gran % (Auto) % Neut % (Auto) % Lymph % (Auto) % Blair % (Auto) % Eos % (Auto) % Baso % (Auto) % Neut # (Auto) (1.4-6.5) K/uL Lymph # (Auto) (1.2-3.4) K/uL Blair # (Auto) (0.11-0.59) K/uL Eos # (Auto) (0-0.5) K/uL Baso # (Auto) (0-0.2) K/uL Immature Gran # (Auto) (0.00-0.02) K/uL Toxic Vacuolation Polychromasia APTT (21.0-31.0) Seconds PTT Ratio Sample Site POC pH (7.35-7.45) POC pCO2 (35-46) mmHg POC pO2 (80-95) mmHg POC HCO3 (19-24) suellen/L POC Total CO2 (24-31) mmol/L POC Base Excess (-9-1.8) suellen/L ABG pH (Temp Correct) (7.35-7.45) ABG pCO2 (Temp Corrct (35-46) mmHg POC ABG pO2 at Pt Temp POC ABG O2 Sat (90-95) % Alex Test O2 Delivery Device POC O2 Rate Minute Ventilation POC FiO2 % Tidal Volume PEEP POC Sodium (135-144) mmol/L Sodium 134 L (136-145) mmol/L POC Potassium (3.3-5.0) mmol/L Potassium 3.5 (3.5-5.1) mmol/L Chloride 101 (98-107) mmol/L Carbon Dioxide 22 (21-32) mmol/L Anion Gap 11.0 (3-11) BUN 47 H (7-18) mg/dl Creatinine 1.92 H (0.6-1.4) mg/dl Est Cr Clr Drug Dosing 56.9 ml/min Est GFR ( Amer) 42.0 Est GFR (Non-Af Amer) 36.2 BUN/Creatinine Ratio 24.6 H (10-20) Glucose 144 H (70-99) mg/dl Calcium 8.0 L (8.5-10.1) mg/dl Ionized Calcium 1.04 L (1.12-1.32) mmol/L Phosphorus 4.1 (2.5-4.9) mg/dl Magnesium (1.8-2.4) mg/dl Total Bilirubin (0.2-1) mg/dl Direct Bilirubin (0-0.2) mg/dl AST (15-37) U/L ALT (12-78) U/L Alkaline Phosphatase (45-117) U/L Troponin I (0-0.045) ng/ml Total Protein (6.4-8.2) gm/dl Albumin (3.4-5.0) gm/dl 10/25/20 10/25/20 10/25/20 Range/Units 20:46 20:25 20:05 WBC (4.8-10.8) K/uL RBC (4.7-6.1) M/uL Hgb (14.0-18.0) g/dL POC Hgb 10.5 L (14.0-18.0) g/dl Hct (42-52) % POC Hct 31 L (42-52) % MCV (80-100) fL MCH (25-34) pg MCHC (32-36) g/dL RDW Std Deviation (36.4-46.3) fL RDW Coeff of Noam (11.5-14.5) % Plt Count (130-400) K/uL MPV (7.4-10.4) fL Immature Gran % (Auto) % Neut % (Auto) % Lymph % (Auto) % Blair % (Auto) % Eos % (Auto) % Baso % (Auto) % Neut # (Auto) (1.4-6.5) K/uL Lymph # (Auto) (1.2-3.4) K/uL Blair # (Auto) (0.11-0.59) K/uL Eos # (Auto) (0-0.5) K/uL Baso # (Auto) (0-0.2) K/uL Immature Gran # (Auto) (0.00-0.02) K/uL Toxic Vacuolation Polychromasia APTT 121.8 H* (21.0-31.0) Seconds PTT Ratio 4.6 Sample Site Art Line POC pH 7.46 H (7.35-7.45) POC pCO2 31 L (35-46) mmHg POC pO2 89 (80-95) mmHg POC HCO3 22 (19-24) suellen/L POC Total CO2 23 L (24-31) mmol/L POC Base Excess -2.0 (-9-1.8) suellen/L ABG pH (Temp Correct) 7.512 H* (7.35-7.45) ABG pCO2 (Temp Corrct 26 L (35-46) mmHg POC ABG pO2 at Pt Temp 72 POC ABG O2 Sat 97.0 H (90-95) % Alex Test NA O2 Delivery Device Ventilator POC O2 Rate 18 Minute Ventilation 9.9 POC FiO2 30 % Tidal Volume 550 PEEP 8 POC Sodium 133 L (135-144) mmol/L Sodium (136-145) mmol/L POC Potassium 3.6 (3.3-5.0) mmol/L Potassium (3.5-5.1) mmol/L Chloride (98-107) mmol/L Carbon Dioxide (21-32) mmol/L Anion Gap (3-11) BUN (7-18) mg/dl Creatinine (0.6-1.4) mg/dl Est Cr Clr Drug Dosing ml/min Est GFR ( Amer) Est GFR (Non-Af Amer) BUN/Creatinine Ratio (10-20) Glucose (70-99) mg/dl Calcium (8.5-10.1) mg/dl Ionized Calcium 1.04 L (1.12-1.32) mmol/L Phosphorus (2.5-4.9) mg/dl Magnesium (1.8-2.4) mg/dl Total Bilirubin (0.2-1) mg/dl Direct Bilirubin (0-0.2) mg/dl AST (15-37) U/L ALT (12-78) U/L Alkaline Phosphatase (45-117) U/L Troponin I (0-0.045) ng/ml Total Protein (6.4-8.2) gm/dl Albumin (3.4-5.0) gm/dl 10/25/20 10/25/20 10/25/20 Range/Units 20:05 20:05 20:05 WBC (4.8-10.8) K/uL RBC (4.7-6.1) M/uL Hgb (14.0-18.0) g/dL POC Hgb (14.0-18.0) g/dl Hct (42-52) % POC Hct (42-52) % MCV (80-100) fL MCH (25-34) pg MCHC (32-36) g/dL RDW Std Deviation (36.4-46.3) fL RDW Coeff of Noam (11.5-14.5) % Plt Count (130-400) K/uL MPV (7.4-10.4) fL Immature Gran % (Auto) % Neut % (Auto) % Lymph % (Auto) % Blair % (Auto) % Eos % (Auto) % Baso % (Auto) % Neut # (Auto) (1.4-6.5) K/uL Lymph # (Auto) (1.2-3.4) K/uL Blair # (Auto) (0.11-0.59) K/uL Eos # (Auto) (0-0.5) K/uL Baso # (Auto) (0-0.2) K/uL Immature Gran # (Auto) (0.00-0.02) K/uL Toxic Vacuolation Polychromasia APTT (21.0-31.0) Seconds PTT Ratio Sample Site POC pH (7.35-7.45) POC pCO2 (35-46) mmHg POC pO2 (80-95) mmHg POC HCO3 (19-24) suellen/L POC Total CO2 (24-31) mmol/L POC Base Excess (-9-1.8) suellen/L ABG pH (Temp Correct) (7.35-7.45) ABG pCO2 (Temp Corrct (35-46) mmHg POC ABG pO2 at Pt Temp POC ABG O2 Sat (90-95) % Alex Test O2 Delivery Device POC O2 Rate Minute Ventilation POC FiO2 % Tidal Volume PEEP POC Sodium (135-144) mmol/L Sodium 133 L (136-145) mmol/L POC Potassium (3.3-5.0) mmol/L Potassium 3.6 (3.5-5.1) mmol/L Chloride 100 (98-107) mmol/L Carbon Dioxide 22 (21-32) mmol/L Anion Gap 11.0 (3-11) BUN 48 H (7-18) mg/dl Creatinine 2.04 H D (0.6-1.4) mg/dl Est Cr Clr Drug Dosing 53.6 ml/min Est GFR ( Amer) 39.0 Est GFR (Non-Af Amer) 33.7 BUN/Creatinine Ratio 23.6 H (10-20) Glucose 163 H (70-99) mg/dl Calcium 8.2 L (8.5-10.1) mg/dl Ionized Calcium Cancelled (1.12-1.32) mmol/L Phosphorus 4.2 D (2.5-4.9) mg/dl Magnesium 2.3 (1.8-2.4) mg/dl Total Bilirubin (0.2-1) mg/dl Direct Bilirubin (0-0.2) mg/dl AST (15-37) U/L ALT (12-78) U/L Alkaline Phosphatase (45-117) U/L Troponin I 0.136 H* (0-0.045) ng/ml Total Protein (6.4-8.2) gm/dl Albumin (3.4-5.0) gm/dl 10/25/20 10/25/20 10/25/20 Range/Units 20:05 15:04 14:43 WBC (4.8-10.8) K/uL RBC (4.7-6.1) M/uL Hgb 9.8 L (14.0-18.0) g/dL POC Hgb 9.9 L (14.0-18.0) g/dl Hct 30.5 L (42-52) % POC Hct 29 L (42-52) % MCV (80-100) fL MCH (25-34) pg MCHC (32-36) g/dL RDW Std Deviation (36.4-46.3) fL RDW Coeff of Noam (11.5-14.5) % Plt Count (130-400) K/uL MPV (7.4-10.4) fL Immature Gran % (Auto) % Neut % (Auto) % Lymph % (Auto) % Blair % (Auto) % Eos % (Auto) % Baso % (Auto) % Neut # (Auto) (1.4-6.5) K/uL Lymph # (Auto) (1.2-3.4) K/uL Blair # (Auto) (0.11-0.59) K/uL Eos # (Auto) (0-0.5) K/uL Baso # (Auto) (0-0.2) K/uL Immature Gran # (Auto) (0.00-0.02) K/uL Toxic Vacuolation Polychromasia APTT (21.0-31.0) Seconds PTT Ratio Sample Site Art Line POC pH 7.42 (7.35-7.45) POC pCO2 33 L (35-46) mmHg POC pO2 110 H (80-95) mmHg POC HCO3 22 (19-24) suellen/L POC Total CO2 23 L (24-31) mmol/L POC Base Excess -3.0 (-9-1.8) suellen/L ABG pH (Temp Correct) 7.475 H (7.35-7.45) ABG pCO2 (Temp Corrct 28 L (35-46) mmHg POC ABG pO2 at Pt Temp 90 POC ABG O2 Sat 98.0 H (90-95) % Alex Test NA O2 Delivery Device Ventilator POC O2 Rate 18 Minute Ventilation POC FiO2 30 % Tidal Volume 550 PEEP 8 POC Sodium 131 L (135-144) mmol/L Sodium (136-145) mmol/L POC Potassium 3.3 (3.3-5.0) mmol/L Potassium (3.5-5.1) mmol/L Chloride (98-107) mmol/L Carbon Dioxide (21-32) mmol/L Anion Gap (3-11) BUN (7-18) mg/dl Creatinine (0.6-1.4) mg/dl Est Cr Clr Drug Dosing ml/min Est GFR ( Amer) Est GFR (Non-Af Amer) BUN/Creatinine Ratio (10-20) Glucose (70-99) mg/dl Calcium (8.5-10.1) mg/dl Ionized Calcium (1.12-1.32) mmol/L Phosphorus (2.5-4.9) mg/dl Magnesium 2.5 H (1.8-2.4) mg/dl Total Bilirubin (0.2-1) mg/dl Direct Bilirubin (0-0.2) mg/dl AST (15-37) U/L ALT (12-78) U/L Alkaline Phosphatase (45-117) U/L Troponin I (0-0.045) ng/ml Total Protein (6.4-8.2) gm/dl Albumin (3.4-5.0) gm/dl 10/25/20 10/25/20 10/25/20 Range/Units 14:43 14:43 14:43 WBC (4.8-10.8) K/uL RBC (4.7-6.1) M/uL Hgb 9.2 L (14.0-18.0) g/dL POC Hgb (14.0-18.0) g/dl Hct 29.0 L (42-52) % POC Hct (42-52) % MCV (80-100) fL MCH (25-34) pg MCHC (32-36) g/dL RDW Std Deviation (36.4-46.3) fL RDW Coeff of Noam (11.5-14.5) % Plt Count (130-400) K/uL MPV (7.4-10.4) fL Immature Gran % (Auto) % Neut % (Auto) % Lymph % (Auto) % Blair % (Auto) % Eos % (Auto) % Baso % (Auto) % Neut # (Auto) (1.4-6.5) K/uL Lymph # (Auto) (1.2-3.4) K/uL Blair # (Auto) (0.11-0.59) K/uL Eos # (Auto) (0-0.5) K/uL Baso # (Auto) (0-0.2) K/uL Immature Gran # (Auto) (0.00-0.02) K/uL Toxic Vacuolation Polychromasia APTT (21.0-31.0) Seconds PTT Ratio Sample Site POC pH (7.35-7.45) POC pCO2 (35-46) mmHg POC pO2 (80-95) mmHg POC HCO3 (19-24) suellen/L POC Total CO2 (24-31) mmol/L POC Base Excess (-9-1.8) suellen/L ABG pH (Temp Correct) (7.35-7.45) ABG pCO2 (Temp Corrct (35-46) mmHg POC ABG pO2 at Pt Temp POC ABG O2 Sat (90-95) % Alex Test O2 Delivery Device POC O2 Rate Minute Ventilation POC FiO2 % Tidal Volume PEEP POC Sodium (135-144) mmol/L Sodium 133 L (136-145) mmol/L POC Potassium (3.3-5.0) mmol/L Potassium 3.5 (3.5-5.1) mmol/L Chloride 98 (98-107) mmol/L Carbon Dioxide 23 (21-32) mmol/L Anion Gap 12.0 H (3-11) BUN 54 H (7-18) mg/dl Creatinine 2.45 H (0.6-1.4) mg/dl Est Cr Clr Drug Dosing 44.6 ml/min Est GFR ( Amer) 31.3 Est GFR (Non-Af Amer) 27.0 BUN/Creatinine Ratio 22.0 H (10-20) Glucose 183 H (70-99) mg/dl Calcium 7.9 L (8.5-10.1) mg/dl Ionized Calcium 1.03 L (1.12-1.32) mmol/L Phosphorus 6.4 H (2.5-4.9) mg/dl Magnesium (1.8-2.4) mg/dl Total Bilirubin (0.2-1) mg/dl Direct Bilirubin (0-0.2) mg/dl AST (15-37) U/L ALT (12-78) U/L Alkaline Phosphatase (45-117) U/L Troponin I (0-0.045) ng/ml Total Protein (6.4-8.2) gm/dl Albumin (3.4-5.0) gm/dl 10/25/20 10/25/20 10/25/20 Range/Units 12:18 10:45 10:45 WBC (4.8-10.8) K/uL RBC (4.7-6.1) M/uL Hgb (14.0-18.0) g/dL POC Hgb 12.9 L (14.0-18.0) g/dl Hct (42-52) % POC Hct 38 L (42-52) % MCV (80-100) fL MCH (25-34) pg MCHC (32-36) g/dL RDW Std Deviation (36.4-46.3) fL RDW Coeff of Noam (11.5-14.5) % Plt Count (130-400) K/uL MPV (7.4-10.4) fL Immature Gran % (Auto) % Neut % (Auto) % Lymph % (Auto) % Blair % (Auto) % Eos % (Auto) % Baso % (Auto) % Neut # (Auto) (1.4-6.5) K/uL Lymph # (Auto) (1.2-3.4) K/uL Blair # (Auto) (0.11-0.59) K/uL Eos # (Auto) (0-0.5) K/uL Baso # (Auto) (0-0.2) K/uL Immature Gran # (Auto) (0.00-0.02) K/uL Toxic Vacuolation Polychromasia APTT (21.0-31.0) Seconds PTT Ratio Sample Site Art Line POC pH 7.06 L* (7.35-7.45) POC pCO2 79 H (35-46) mmHg POC pO2 133 H (80-95) mmHg POC HCO3 23 (19-24) suellen/L POC Total CO2 25 (24-31) mmol/L POC Base Excess -8.0 (-9-1.8) suellen/L ABG pH (Temp Correct) 7.098 L* (7.35-7.45) ABG pCO2 (Temp Corrct 70 H (35-46) mmHg POC ABG pO2 at Pt Temp 118 POC ABG O2 Sat 97.0 H (90-95) % Alex Test NA O2 Delivery Device Ventilator POC O2 Rate 18 Minute Ventilation POC FiO2 100 % Tidal Volume 550 PEEP 8 POC Sodium 130 L (135-144) mmol/L Sodium (136-145) mmol/L POC Potassium 4.3 (3.3-5.0) mmol/L Potassium (3.5-5.1) mmol/L Chloride (98-107) mmol/L Carbon Dioxide (21-32) mmol/L Anion Gap (3-11) BUN (7-18) mg/dl Creatinine (0.6-1.4) mg/dl Est Cr Clr Drug Dosing ml/min Est GFR ( Amer) Est GFR (Non-Af Amer) BUN/Creatinine Ratio (10-20) Glucose (70-99) mg/dl Calcium (8.5-10.1) mg/dl Ionized Calcium 1.01 L (1.12-1.32) mmol/L Phosphorus (2.5-4.9) mg/dl Magnesium 2.5 H (1.8-2.4) mg/dl Total Bilirubin (0.2-1) mg/dl Direct Bilirubin (0-0.2) mg/dl AST (15-37) U/L ALT (12-78) U/L Alkaline Phosphatase (45-117) U/L Troponin I (0-0.045) ng/ml Total Protein (6.4-8.2) gm/dl Albumin (3.4-5.0) gm/dl 10/25/20 10/25/20 Range/Units 10:45 10:45 WBC (4.8-10.8) K/uL RBC (4.7-6.1) M/uL Hgb 8.4 L (14.0-18.0) g/dL POC Hgb (14.0-18.0) g/dl Hct 26.5 L (42-52) % POC Hct (42-52) % MCV (80-100) fL MCH (25-34) pg MCHC (32-36) g/dL RDW Std Deviation (36.4-46.3) fL RDW Coeff of Noam (11.5-14.5) % Plt Count (130-400) K/uL MPV (7.4-10.4) fL Immature Gran % (Auto) % Neut % (Auto) % Lymph % (Auto) % Blair % (Auto) % Eos % (Auto) % Baso % (Auto) % Neut # (Auto) (1.4-6.5) K/uL Lymph # (Auto) (1.2-3.4) K/uL Blair # (Auto) (0.11-0.59) K/uL Eos # (Auto) (0-0.5) K/uL Baso # (Auto) (0-0.2) K/uL Immature Gran # (Auto) (0.00-0.02) K/uL Toxic Vacuolation Polychromasia APTT (21.0-31.0) Seconds PTT Ratio Sample Site POC pH (7.35-7.45) POC pCO2 (35-46) mmHg POC pO2 (80-95) mmHg POC HCO3 (19-24) suellen/L POC Total CO2 (24-31) mmol/L POC Base Excess (-9-1.8) suellen/L ABG pH (Temp Correct) (7.35-7.45) ABG pCO2 (Temp Corrct (35-46) mmHg POC ABG pO2 at Pt Temp POC ABG O2 Sat (90-95) % Alex Test O2 Delivery Device POC O2 Rate Minute Ventilation POC FiO2 % Tidal Volume PEEP POC Sodium (135-144) mmol/L Sodium 131 L (136-145) mmol/L POC Potassium (3.3-5.0) mmol/L Potassium 3.5 (3.5-5.1) mmol/L Chloride 99 (98-107) mmol/L Carbon Dioxide 23 (21-32) mmol/L Anion Gap 9.0 (3-11) BUN 55 H (7-18) mg/dl Creatinine 2.54 H (0.6-1.4) mg/dl Est Cr Clr Drug Dosing 43.0 ml/min Est GFR ( Amer) 29.9 Est GFR (Non-Af Amer) 25.8 BUN/Creatinine Ratio 21.7 H (10-20) Glucose 172 H (70-99) mg/dl Calcium 7.9 L (8.5-10.1) mg/dl Ionized Calcium (1.12-1.32) mmol/L Phosphorus 5.7 H (2.5-4.9) mg/dl Magnesium (1.8-2.4) mg/dl Total Bilirubin (0.2-1) mg/dl Direct Bilirubin (0-0.2) mg/dl AST (15-37) U/L ALT (12-78) U/L Alkaline Phosphatase (45-117) U/L Troponin I 0.304 H* (0-0.045) ng/ml Total Protein (6.4-8.2) gm/dl Albumin (3.4-5.0) gm/dl Coding Level of Care Code Critical Care 1st 30-74 mins Diagnoses Cardiac arrest I46.9 Respiratory failure J96.90 Acute on chronic renal failure N17.9; N18.9 Chronic diastolic heart failure I50.32 Acute diastolic (congestive) heart failure I50.31 Pneumonia J18.9 Pneumonia type: due to unspecified organism Laterality: right Lung location: lower lobe of lung Shortness of breath R06.02 Depression F32.9 Time Spent (min) 45 (1) Pneumonia Pneumonia type: due to unspecified organism Laterality: right Lung location: lower lobe of lung Qualified Code(s): J18.9 - Pneumonia, unspecified organism
--- NOTE | 2020-10-26 08:56 | XRay Report ---
XR chest 1V portable HISTORY: Intubation. Respiratory failure. COMPARISON: Chest 10/25/2020. FINDINGS: Cardiac silhouette remains enlarged. Nasogastric tube terminates in the expected location o f the stomach. Right jugular central venous catheter terminates at the brachiocephalic vein. This rem ains unchanged in position. Endotracheal tube terminates 2 cm from the braden. There is mild central pulmonary vascular congestion without overt edema. IMPRESSION: 1. Satisfactory support line placement. 2. Stable cardiomegaly and pulmonary vascular congestion. ACT 112: Negative or not required by law. Electronically signed by: Kirk Watkins M.D. 10/26/2020 8:55 AM
--- NOTE | 2020-10-26 11:12 | Electrocardiogram Report ---
Test Reason : Blood Pressure : / mmHG Vent. Rate : 112 BPM Atrial Rate : 089 BPM P-R Int : 000 ms QRS Dur : 094 ms QT Int : 328 ms P-R-T Axes : 000 088 249 degrees QTc Int : 447 ms Atrial fibrillation with rapid ventricular response Incomplete right bundle branch block Nonspecific T wave abnormality Abnormal ECG When compared with ECG of 24-OCT-2020 07:11, T wave inversion no longer evident in Anterior leads Confirmed by Stephen Kwok ([id number]) on 10/26/2020 11:12:19 AM Referred By: REFERRED SELF Confirmed By:Stephen Kwok
--- NOTE | 2020-10-26 11:18 | Electrocardiogram Report ---
Test Reason : Blood Pressure : / mmHG Vent. Rate : 060 BPM Atrial Rate : 202 BPM P-R Int : 000 ms QRS Dur : 096 ms QT Int : 546 ms P-R-T Axes : 000 045 168 degrees QTc Int : 546 ms Atrial fibrillation Prolonged QT Abnormal ECG When compared with ECG of 24-OCT-2020 22:26, (unconfirmed) Vent. rate has decreased BY 52 BPM T wave inversion now evident in Anterior leads Confirmed by Stephen Kwok ([id number]) on 10/26/2020 11:18:24 AM Referred By: REFERRED SELF Confirmed By:Stephen Kwok
--- NOTE | 2020-10-26 11:26 | Cardiology Progress Note ---
Date of Service October 26, 2020 Assessment & Plan (1) Cardiac arrest: Event appears to be loss of pulse and pressure in the presence of intact rhythm likely multifactorial in etiology given multiple underlying morbidities and need for sedation. Patient does have risk factors for ischemic heart disease as well as potential tachybradycardia arrhythmias superimposed on underlying issues as below. Patient initially not anticoagulated due to multiple risk issues. Cerebrovascular embolic event not excluded as well. Recommendations: Patient remainss bradycardic this morning of IV amiodarone, metoprolol. Cardiac event did not appear to be tachycardia mediated and patient currently bradycardic while sedated and cooled. Cardiac enzymes elevated likely on the basis of event although underlying ischemic issues not excluded. Echo demonstrates preserved LV systolic function without wall motion or normality EKGs with T wave inversion anteriorly, ischemic heart disease not excluded but also may be seen with hypothermia Patient to proceed with warming after hypothermia protocol. Expect heart rate to increase as patient warms, sedation reduced Continue anticoagulation with IV heparin (2) Atrial flutter with rapid ventricular response: Currently in atrial fibrillation with no tachyarrhythmias (3) Elevated troponin: (4) Obesity (BMI 30-39.9): (5) Chronic diastolic heart failure: (6) Acute on chronic renal failure: Admission and Anticipated Discharge Date Admission Date: October 23, 2020 Subjective Patient was seen and examined, chart, medications, telemetry reviewed. Patient remains sedated and intubated and is completing cooling protocol now being warmed. Telemetry has demonstrated atrial fibrillation with bradycardic response. No profound pauses EKGs with atrial fibrillation and persistent more pronounced T wave inversion anterior precordial leads Echocardiogram with preserved LV systolic function No bleeding issues on current IV anticoagulation although platelet count trending slightly low Review of Systems Review of Systems: Unobtainable due to endotracheal tube Physical Exam Constitutional: + morbidly obese and + mechanically ventilated Eyes: + fixed pupils (Secondary to medical therapy) ENMT: Ears: no external ear abnormality Nose: no external nose abnormality Mouth: + oropharynx abnormality (Endotracheal tube in place) Neck: trachea midline, no thyromegaly + thick neck Cardiovascular: Rate/Rhythm: + bradycardic and + irregularly irregular Heart Sounds: normal S1 and normal S2; no gallop Vessels: normal carotid upstroke and radial pulses present Extremities: + edema (1-2+ with chronic indurated stasis changes) Gastrointestinal (Abdomen): normal bowel sounds, soft, nontender, no hepatosplenomegaly Percussion/Palpation: abdomen soft Musculoskeletal: no cyanosis or clubbing, extremities motor strength 5/5 Skin: no rashes, warm and dry + induration (And chronic excoriation of the lower extremities) Neurologic: PERRL, EOMI, accommodation nl, no face palsy, no dysarthria Psychiatric: A+Ox3, euthymic affect Results & Data ([facility]) Vital Signs (Past 12 Hours) Vital Signs Temp Pulse Resp BP BP BP Pulse Ox 10/26/20 10:51 33.7 C L 47 L 16 96/59 L 99/48 L 100 10/26/20 09:57 33.5 C L 51 L 16 115/82 128/63 100 10/26/20 09:06 33.5 C L 47 L 16 93/62 L 110/56 L 100 10/26/20 08:37 51 L 16 100 10/26/20 08:00 33.1 C L 52 L 16 110/54 L 95/65 L 135/64 100 10/26/20 07:00 33.5 C L 54 L 16 107/72 130/63 100 10/26/20 06:00 33.6 C L 47 L 16 110/69 128/65 100 10/26/20 05:00 33.6 C L 51 L 16 134/64 137/64 100 10/26/20 04:00 33.5 C L 51 L 16 115/57 L 134/88 115/57 L 100 10/26/20 03:14 40 L 16 100 10/26/20 03:00 33.5 C L 46 L 16 106/71 118/56 L 100 10/26/20 02:00 33.4 C L 50 L 16 96/70 L 121/56 L 100 10/26/20 01:00 33.4 C L 45 L 16 108/74 124/58 L 100 10/26/20 00:00 33.5 C L 54 L 16 133/64 110/83 141/62 H 100 Laboratory Results Laboratory Results - last 24 hr 10/25/20 10/25/20 10/25/20 12:18 14:43 14:43 WBC RBC Hgb 9.2 L POC Hgb 12.9 L Hct 29.0 L POC Hct 38 L MCV MCH MCHC RDW Std Deviation RDW Coeff of Noam Plt Count MPV Immature Gran % (Auto) Neut % (Auto) Lymph % (Auto) Piute % (Auto) Eos % (Auto) Baso % (Auto) Neut # (Auto) Lymph # (Auto) [place] # (Auto) Eos # (Auto) Baso # (Auto) Immature Gran # (Auto) Toxic Vacuolation Polychromasia APTT PTT Ratio Sample Site Art Line POC pH 7.06 L* POC pCO2 79 H POC pO2 133 H POC HCO3 23 POC Total CO2 25 POC Base Excess -8.0 ABG pH (Temp Correct) 7.098 L* ABG pCO2 (Temp Corrct 70 H POC ABG pO2 at Pt Temp 118 POC ABG O2 Sat 97.0 H Alex Test NA O2 Delivery Device Ventilator POC O2 Rate 18 Minute Ventilation POC FiO2 100 Tidal Volume 550 PEEP 8 POC Sodium 130 L Sodium 133 L POC Potassium 4.3 Potassium 3.5 Chloride 98 Carbon Dioxide 23 Anion Gap 12.0 H BUN 54 H Creatinine 2.45 H Est Cr Clr Drug Dosing 44.6 Est GFR ( Amer) 31.3 Est GFR (Non-Af Amer) 27.0 BUN/Creatinine Ratio 22.0 H Glucose 183 H Calcium 7.9 L Ionized Calcium Phosphorus 6.4 H Magnesium Total Bilirubin Direct Bilirubin AST ALT Alkaline Phosphatase Troponin I Total Protein Albumin 10/25/20 10/25/20 10/25/20 14:43 14:43 15:04 WBC RBC Hgb POC Hgb 9.9 L Hct POC Hct 29 L MCV MCH MCHC RDW Std Deviation RDW Coeff of Noam Plt Count MPV Immature Gran % (Auto) Neut % (Auto) Lymph % (Auto) Pi[place] % (Auto) Eos % (Auto) Baso % (Auto) Neut # (Auto) Lymph # (Auto) Pi[place] # (Auto) Eos # (Auto) Baso # (Auto) Immature Gran # (Auto) Toxic Vacuolation Polychromasia APTT PTT Ratio Sample Site Art Line POC pH 7.42 POC pCO2 33 L POC pO2 110 H POC HCO3 22 POC Total CO2 23 L POC Base Excess -3.0 ABG pH (Temp Correct) 7.475 H ABG pCO2 (Temp Corrct 28 L POC ABG pO2 at Pt Temp 90 POC ABG O2 Sat 98.0 H Alex Test NA O2 Delivery Device Ventilator POC O2 Rate 18 Minute Ventilation POC FiO2 30 Tidal Volume 550 PEEP 8 POC Sodium 131 L Sodium POC Potassium 3.3 Potassium Chloride Carbon Dioxide Anion Gap BUN Creatinine Est Cr Clr Drug Dosing Est GFR ( Amer) Est GFR (Non-Af Amer) BUN/Creatinine Ratio Glucose Calcium Ionized Calcium 1.03 L Phosphorus Magnesium 2.5 H Total Bilirubin Direct Bilirubin AST ALT Alkaline Phosphatase Troponin I Total Protein Albumin 10/25/20 10/25/20 10/25/20 20:05 20:05 20:05 WBC RBC Hgb 9.8 L POC Hgb Hct 30.5 L POC Hct MCV MCH MCHC RDW Std Deviation RDW Coeff of Noam Plt Count MPV Immature Gran % (Auto) Neut % (Auto) Lymph % (Auto) Pi[place] % (Auto) Eos % (Auto) Baso % (Auto) Neut # (Auto) Lymph # (Auto) [place] # (Auto) Eos # (Auto) Baso # (Auto) Immature Gran # (Auto) Toxic Vacuolation Polychromasia APTT PTT Ratio Sample Site POC pH POC pCO2 POC pO2 POC HCO3 POC Total CO2 POC Base Excess ABG pH (Temp Correct) ABG pCO2 (Temp Corrct POC ABG pO2 at Pt Temp POC ABG O2 Sat Alex Test O2 Delivery Device POC O2 Rate Minute Ventilation POC FiO2 Tidal Volume PEEP POC Sodium Sodium 133 L POC Potassium Potassium 3.6 Chloride 100 Carbon Dioxide 22 Anion Gap 11.0 BUN 48 H Creatinine 2.04 H D Est Cr Clr Drug Dosing 53.6 Est GFR ( Amer) 39.0 Est GFR (Non-Af Amer) 33.7 BUN/Creatinine Ratio 23.6 H Glucose 163 H Calcium 8.2 L Ionized Calcium Cancelled Phosphorus 4.2 D Magnesium Total Bilirubin Direct Bilirubin AST ALT Alkaline Phosphatase Troponin I 0.136 H* Total Protein Albumin 10/25/20 10/25/20 10/25/20 20:05 20:05 20:25 WBC RBC Hgb POC Hgb 10.5 L Hct POC Hct 31 L MCV MCH MCHC RDW Std Deviation RDW Coeff of Noam Plt Count MPV Immature Gran % (Auto) Neut % (Auto) Lymph % (Auto) Piute % (Auto) Eos % (Auto) Baso % (Auto) Neut # (Auto) Lymph # (Auto) Pi[place] # (Auto) Eos # (Auto) Baso # (Auto) Immature Gran # (Auto) Toxic Vacuolation Polychromasia APTT 121.8 H* PTT Ratio 4.6 Sample Site Art Line POC pH 7.46 H POC pCO2 31 L POC pO2 89 POC HCO3 22 POC Total CO2 23 L POC Base Excess -2.0 ABG pH (Temp Correct) 7.512 H* ABG pCO2 (Temp Corrct 26 L POC ABG pO2 at Pt Temp 72 POC ABG O2 Sat 97.0 H Alex Test NA O2 Delivery Device Ventilator POC O2 Rate 18 Minute Ventilation 9.9 POC FiO2 30 Tidal Volume 550 PEEP 8 POC Sodium 133 L Sodium POC Potassium 3.6 Potassium Chloride Carbon Dioxide Anion Gap BUN Creatinine Est Cr Clr Drug Dosing Est GFR ( Amer) Est GFR (Non-Af Amer) BUN/Creatinine Ratio Glucose Calcium Ionized Calcium Phosphorus Magnesium 2.3 Total Bilirubin Direct Bilirubin AST ALT Alkaline Phosphatase Troponin I Total Protein Albumin 10/25/20 10/25/20 10/25/20 20:46 22:31 22:31 WBC RBC Hgb 9.9 L POC Hgb Hct 31.2 L POC Hct MCV MCH MCHC RDW Std Deviation RDW Coeff of Noam Plt Count MPV Immature Gran % (Auto) Neut % (Auto) Lymph % (Auto) Piute % (Auto) Eos % (Auto) Baso % (Auto) Neut # (Auto) Lymph # (Auto) [place] # (Auto) Eos # (Auto) Baso # (Auto) Immature Gran # (Auto) Toxic Vacuolation Polychromasia APTT PTT Ratio Sample Site POC pH POC pCO2 POC pO2 POC HCO3 POC Total CO2 POC Base Excess ABG pH (Temp Correct) ABG pCO2 (Temp Corrct POC ABG pO2 at Pt Temp POC ABG O2 Sat Alex Test O2 Delivery Device POC O2 Rate Minute Ventilation POC FiO2 Tidal Volume PEEP POC Sodium Sodium 134 L POC Potassium Potassium 3.5 Chloride 101 Carbon Dioxide 22 Anion Gap 11.0 BUN 47 H Creatinine 1.92 H Est Cr Clr Drug Dosing 56.9 Est GFR ( Amer) 42.0 Est GFR (Non-Af Amer) 36.2 BUN/Creatinine Ratio 24.6 H Glucose 144 H Calcium 8.0 L Ionized Calcium 1.04 L Phosphorus 4.1 Magnesium Total Bilirubin Direct Bilirubin AST ALT Alkaline Phosphatase Troponin I Total Protein Albumin 10/25/20 10/25/20 10/26/20 22:31 23:14 00:47 WBC RBC Hgb POC Hgb 10.9 L Hct POC Hct 32 L MCV MCH MCHC RDW Std Deviation RDW Coeff of Noam Plt Count MPV Immature Gran % (Auto) Neut % (Auto) Lymph % (Auto) Piute % (Auto) Eos % (Auto) Baso % (Auto) Neut # (Auto) Lymph # (Auto) Pi[place] # (Auto) Eos # (Auto) Baso # (Auto) Immature Gran # (Auto) Toxic Vacuolation Polychromasia APTT PTT Ratio Sample Site Art Line POC pH 7.44 POC pCO2 34 L POC pO2 121 H POC HCO3 23 POC Total CO2 24 POC Base Excess -1.0 ABG pH (Temp Correct) 7.493 H ABG pCO2 (Temp Corrct 29 L POC ABG pO2 at Pt Temp 101 POC ABG O2 Sat 99.0 H Alex Test NA O2 Delivery Device Ventilator POC O2 Rate 18 Minute Ventilation 9.0 POC FiO2 30 Tidal Volume 500 PEEP 8 POC Sodium 133 L Sodium POC Potassium 3.4 Potassium Chloride Carbon Dioxide Anion Gap BUN Creatinine Est Cr Clr Drug Dosing Est GFR ( Amer) Est GFR (Non-Af Amer) BUN/Creatinine Ratio Glucose Calcium Ionized Calcium 1.04 L Phosphorus Magnesium 2.3 Total Bilirubin Direct Bilirubin AST ALT Alkaline Phosphatase Troponin I Total Protein Albumin 10/26/20 10/26/20 10/26/20 03:22 05:04 05:04 WBC 6.14 RBC 4.30 L Hgb 10.3 L POC Hgb 10.5 L Hct 32.2 L POC Hct 31 L MCV 74.9 L MCH 24.0 L MCHC 32.0 RDW Std Deviation 46.2 RDW Coeff of Noam 16.9 H Plt Count 112 L MPV 10.3 Immature Gran % (Auto) 3.3 Neut % (Auto) 74.2 Lymph % (Auto) 12.2 Piute % (Auto) 9.8 Eos % (Auto) 0.3 Baso % (Auto) 0.2 Neut # (Auto) 4.56 Lymph # (Auto) 0.75 L Piute # (Auto) 0.60 H Eos # (Auto) 0.02 Baso # (Auto) 0.01 Immature Gran # (Auto) 0.20 H Toxic Vacuolation 1+ Polychromasia 1+ APTT PTT Ratio Sample Site Art Line POC pH 7.41 POC pCO2 38 POC pO2 140 H POC HCO3 24 POC Total CO2 26 POC Base Excess 0.0 ABG pH (Temp Correct) 7.464 H ABG pCO2 (Temp Corrct 33 L POC ABG pO2 at Pt Temp 120 POC ABG O2 Sat 99.0 H Alex Test NA O2 Delivery Device Ventilator POC O2 Rate 16 Minute Ventilation 8.0 POC FiO2 100 Tidal Volume 500 PEEP 8 POC Sodium 133 L Sodium 135 L POC Potassium 3.2 L Potassium 3.2 L Chloride 103 Carbon Dioxide 26 Anion Gap 6.0 BUN 47 H Creatinine 1.76 H Est Cr Clr Drug Dosing 62.1 Est GFR ( Amer) 46.7 Est GFR (Non-Af Amer) 40.3 BUN/Creatinine Ratio 26.9 H Glucose 139 H Calcium 7.6 L Ionized Calcium Phosphorus 3.8 Magnesium 2.5 H Total Bilirubin 1.5 H Direct Bilirubin 1.0 H AST 61 H ALT 37 Alkaline Phosphatase 68 Troponin I Total Protein 6.2 L Albumin 2.3 L 10/26/20 10/26/20 10/26/20 05:04 07:55 07:55 WBC RBC Hgb 10.1 L POC Hgb Hct 30.7 L POC Hct MCV MCH MCHC RDW Std Deviation RDW Coeff of Noam Plt Count MPV Immature Gran % (Auto) Neut % (Auto) Lymph % (Auto) [place] % (Auto) Eos % (Auto) Baso % (Auto) Neut # (Auto) Lymph # (Auto) [place] # (Auto) Eos # (Auto) Baso # (Auto) Immature Gran # (Auto) Toxic Vacuolation Polychromasia APTT 86.8 H* PTT Ratio 3.3 Sample Site POC pH POC pCO2 POC pO2 POC HCO3 POC Total CO2 POC Base Excess ABG pH (Temp Correct) ABG pCO2 (Temp Corrct POC ABG pO2 at Pt Temp POC ABG O2 Sat Alex Test O2 Delivery Device POC O2 Rate Minute Ventilation POC FiO2 Tidal Volume PEEP POC Sodium Sodium 136 POC Potassium Potassium 3.7 D Chloride 102 Carbon Dioxide 23 Anion Gap 11.0 BUN 43 H Creatinine 1.68 H Est Cr Clr Drug Dosing 63.7 Est GFR ( Amer) 49.4 Est GFR (Non-Af Amer) 42.6 BUN/Creatinine Ratio 25.5 H Glucose 128 H Calcium 8.1 L Ionized Calcium Phosphorus 3.4 Magnesium 2.4 Total Bilirubin Direct Bilirubin AST ALT Alkaline Phosphatase Troponin I Total Protein Albumin 10/26/20 07:55 WBC RBC Hgb POC Hgb Hct POC Hct MCV MCH MCHC RDW Std Deviation RDW Coeff of Noam Plt Count MPV Immature Gran % (Auto) Neut % (Auto) Lymph % (Auto) Pi[place] % (Auto) Eos % (Auto) Baso % (Auto) Neut # (Auto) Lymph # (Auto) [place] # (Auto) Eos # (Auto) Baso # (Auto) Immature Gran # (Auto) Toxic Vacuolation Polychromasia APTT PTT Ratio Sample Site POC pH POC pCO2 POC pO2 POC HCO3 POC Total CO2 POC Base Excess ABG pH (Temp Correct) ABG pCO2 (Temp Corrct POC ABG pO2 at Pt Temp POC ABG O2 Sat Alex Test O2 Delivery Device POC O2 Rate Minute Ventilation POC FiO2 Tidal Volume PEEP POC Sodium Sodium POC Potassium Potassium Chloride Carbon Dioxide Anion Gap BUN Creatinine Est Cr Clr Drug Dosing Est GFR ( Amer) Est GFR (Non-Af Amer) BUN/Creatinine Ratio Glucose Calcium Ionized Calcium 1.06 L Phosphorus Magnesium Total Bilirubin Direct Bilirubin AST ALT Alkaline Phosphatase Troponin I Total Protein Albumin
--- NOTE | 2020-10-26 11:36 | Electrocardiogram Report ---
Test Reason : Blood Pressure : / mmHG Vent. Rate : 047 BPM Atrial Rate : 227 BPM P-R Int : 000 ms QRS Dur : 098 ms QT Int : 624 ms P-R-T Axes : 000 057 105 degrees QTc Int : 552 ms Poor data quality, interpretation may be adversely affected Atrial fibrillation with slow ventricular response Prolonged QT Abnormal ECG When compared with ECG of 25-OCT-2020 08:28, (unconfirmed) T wave inversion less evident in Lateral leads Confirmed by Stephen Kwok ([id number]) on 10/26/2020 11:35:49 AM Referred By: REFERRED SELF Confirmed By:Stephen Kwok
--- NOTE | 2020-10-26 11:41 | Electrocardiogram Report ---
Test Reason : Blood Pressure : / mmHG Vent. Rate : 047 BPM Atrial Rate : 129 BPM P-R Int : 000 ms QRS Dur : 098 ms QT Int : 664 ms P-R-T Axes : 000 052 055 degrees QTc Int : 587 ms Poor data quality, interpretation may be adversely affected Atrial fibrillation with slow ventricular response T wave abnormality, consider anterior ischemia Prolonged QT Abnormal ECG When compared with ECG of 26-OCT-2020 01:06, (unconfirmed) No significant change was found Confirmed by Stephen Kwok ([id number]) on 10/26/2020 11:41:02 AM Referred By: REFERRED SELF Confirmed By:Stephen Kwok
--- NOTE | 2020-10-26 11:41 | Electrocardiogram Report ---
Test Reason : Blood Pressure : / mmHG Vent. Rate : 045 BPM Atrial Rate : 035 BPM P-R Int : 000 ms QRS Dur : 100 ms QT Int : 652 ms P-R-T Axes : 000 049 082 degrees QTc Int : 563 ms Atrial fibrillation with slow ventricular response T wave abnormality, consider anterior ischemia Prolonged QT Abnormal ECG When compared with ECG of 25-OCT-2020 20:02, (unconfirmed) No significant change Confirmed by Stephen Kwok ([id number]) on 10/26/2020 11:40:26 AM Referred By: REFERRED SELF Confirmed By:Stephen Kwok
--- NOTE | 2020-10-26 11:44 | Electrocardiogram Report ---
Test Reason : Blood Pressure : / mmHG Vent. Rate : 054 BPM Atrial Rate : 056 BPM P-R Int : 000 ms QRS Dur : 102 ms QT Int : 616 ms P-R-T Axes : 000 050 053 degrees QTc Int : 584 ms Atrial fibrillation with slow ventricular response T wave abnormality, consider anterior ischemia Prolonged QT Abnormal ECG When compared with ECG of 26-OCT-2020 01:06, (unconfirmed) No significant change was found Confirmed by Stephen Kwok ([id number]) on 10/26/2020 11:44:07 AM Referred By: REFERRED SELF Confirmed By:tSephen Kwok
[2020-10-26] MEDS ORDERED: PEPTAMEN INTENSE VHP 1.0 CAL 1,000 ML BAG OG SCH (11:45)
--- NOTE | 2020-10-26 11:46 | Electrocardiogram Report ---
Test Reason : Blood Pressure : / mmHG Vent. Rate : 047 BPM Atrial Rate : 070 BPM P-R Int : 000 ms QRS Dur : 100 ms QT Int : 628 ms P-R-T Axes : 000 042 056 degrees QTc Int : 555 ms Atrial fibrillation with slow ventricular response T wave abnormality, consider anterior ischemia Prolonged QT Abnormal ECG When compared with ECG of 26-OCT-2020 07:45, (unconfirmed) No significant change was found Confirmed by Stephen Kwok ([id number]) on 10/26/2020 11:46:15 AM Referred By: REFERRED SELF Confirmed By:Stephen Kwok
[2020-10-26] MEDS: fentaNYL DRIP 1,250 MCG/250 ML BAG IV SCH ×2 (11:57→19:54)
[2020-10-26 12:07] LABS: Hematocrit (blood only) 30.8 % (42-52); Hemoglobin 10.2 g/dL (14.0-18.0)
[2020-10-26 12:24] LABS: BUN Creatinine Ratio 27.2 (10-20); Calcium 7.9 mg/dl (8.5-10.1); Creatinine Clr Calc Pharmacy 66.5 ml/min; Est GFR (Non-African American) 44.8; Magnesium 2.5 mg/dl (1.8-2.4); Potassium 3.6 mmol/L (3.5-5.1)
[2020-10-26 12:25] LABS: Phosphorus 2.9 mg/dl (2.5-4.9)
[2020-10-26 13:51] LABS: Partial Thromboplastin Ratio 2.7
[2020-10-26 13:52] LABS: Partial Thromboplastin Time 71.1 Seconds (21.0-31.0)
[2020-10-26] MEDS ORDERED: GABAPENTIN 600 MG TAB PO SCH (14:00)
[2020-10-26] MEDS: DOPamine / D5W 400 MG/250 ML BAG IV SCH (15:36)
[2020-10-26 16:07] LABS: Hematocrit (blood only) 32.2 % (42-52); Hemoglobin 10.6 g/dL (14.0-18.0)
[2020-10-26 16:24] LABS: BUN Creatinine Ratio 26.8 (10-20); Calcium 8.1 mg/dl (8.5-10.1); Creatinine Clr Calc Pharmacy 70.5 ml/min; Est GFR (African American) 55.7; Est GFR (Non-African American) 48.1; Magnesium 2.3 mg/dl (1.8-2.4); Phosphorus 2.5 mg/dl (2.5-4.9); Potassium 3.5 mmol/L (3.5-5.1)
[2020-10-26 17:40] LABS: iSTAT Arterial Blood Gas HCO3 23 meg/L (19-24); iSTAT Arterial Blood Gas pCO2 36 mmHg (35-46); iSTAT Arterial Blood Gas pH 7.41 (7.35-7.45); iSTAT Arterial Blood Gas pO2 92 mmHg (80-95); iSTAT Carbon Dioxide 24 mmol/L (24-31); iSTAT FiO2 24 %; iSTAT Site Art Line
[2020-10-26 17:40] LABS: iSTAT Arterial Blood Gas HCO3 23 meg/L (19-24); iSTAT Arterial Blood Gas pCO2 39 mmHg (35-46); iSTAT Arterial Blood Gas pH 7.38 (7.35-7.45); iSTAT Arterial Blood Gas pO2 68 mmHg (80-95); iSTAT Carbon Dioxide 24 mmol/L (24-31); iSTAT FiO2 24 %; iSTAT Site Art Line
[2020-10-26 17:40] LABS: iSTAT Arterial Blood Gas HCO3 23 meg/L (19-24); iSTAT Arterial Blood Gas pCO2 37 mmHg (35-46); iSTAT Arterial Blood Gas pH 7.39 (7.35-7.45); iSTAT Arterial Blood Gas pO2 92 mmHg (80-95); iSTAT Carbon Dioxide 24 mmol/L (24-31); iSTAT FiO2 24 %; iSTAT Site Art Line
[2020-10-26 19:54] LABS: Hematocrit (blood only) 32.1 % (42-52); Hemoglobin 10.4 g/dL (14.0-18.0)
[2020-10-26 20:00] LABS: iSTAT Art Bld Gas pCO2 Correct 37 mmHg (35-46); iSTAT Art Bld Gas pH Corrected 7.417 (7.35-7.45); iSTAT Arterial Blood Gas HCO3 24 meg/L (19-24); iSTAT Arterial Blood Gas pCO2 39 mmHg (35-46); iSTAT Arterial Blood Gas pO2 75 mmHg (80-95); iSTAT Arterial Blood Gas pO2 C 68; iSTAT Carbon Dioxide 25 mmol/L (24-31); iSTAT FiO2 24 %; iSTAT Hematocrit 33 % (42-52); iSTAT Hemoglobin 11.2 g/dl (14.0-18.0); iSTAT Potassium 3.5 mmol/L (3.3-5.0); iSTAT Site Art Line; iSTAT Sodium 136 mmol/L (135-144)
[2020-10-26 20:11] LABS: BUN Creatinine Ratio 27.1 (10-20); Calcium 8.1 mg/dl (8.5-10.1); Creatinine Clr Calc Pharmacy 73.4 ml/min; Est GFR (African American) 58.5; Est GFR (Non-African American) 50.5; Magnesium 2.3 mg/dl (1.8-2.4); Potassium 3.5 mmol/L (3.5-5.1)
[2020-10-26 20:12] LABS: Phosphorus 2.4 mg/dl (2.5-4.9)
[2020-10-26 20:14] LABS: Partial Thromboplastin Ratio 2.1
[2020-10-26 20:16] LABS: Partial Thromboplastin Time 54.4 Seconds (21.0-31.0)
[2020-10-26 23:38] LABS: iSTAT Art Bld Gas pCO2 Correct 41 mmHg (35-46); iSTAT Art Bld Gas pH Corrected 7.376 (7.35-7.45); iSTAT Arterial Blood Gas HCO3 24 meg/L (19-24); iSTAT Arterial Blood Gas pCO2 42 mmHg (35-46); iSTAT Arterial Blood Gas pH 7.37 (7.35-7.45); iSTAT Arterial Blood Gas pO2 84 mmHg (80-95); iSTAT Arterial Blood Gas pO2 C 80; iSTAT Carbon Dioxide 25 mmol/L (24-31); iSTAT FiO2 30 %; iSTAT Hematocrit 35 % (42-52); iSTAT Hemoglobin 11.9 g/dl (14.0-18.0); iSTAT Potassium 3.6 mmol/L (3.3-5.0); iSTAT Site Art Line; iSTAT Sodium 137 mmol/L (135-144)
[2020-10-27] MEDS ORDERED: GABAPENTIN 250 MG/5 ML 470 ML BTL NG SCH
[2020-10-27 00:22] LABS: Hematocrit (blood only) 32.2 % (42-52); Hemoglobin 10.6 g/dL (14.0-18.0)
[2020-10-27] MEDS: PIPERACILLIN/TAZOBACTAM 4.5 GM in DEXTROSE 5% 100 ML IV SCH ×3 (00:34→16:03)
[2020-10-27] MEDS: DOPamine / D5W 400 MG/250 ML BAG IV SCH ×2 (00:35→20:21)
[2020-10-27 00:39] LABS: BUN Creatinine Ratio 25.7 (10-20); Calcium 7.7 mg/dl (8.5-10.1); Creatinine Clr Calc Pharmacy 73.4 ml/min; Est GFR (African American) 58.5; Est GFR (Non-African American) 50.5; Magnesium 2.3 mg/dl (1.8-2.4); Potassium 3.6 mmol/L (3.5-5.1)
[2020-10-27 00:40] LABS: Phosphorus 2.5 mg/dl (2.5-4.9)
[2020-10-27 03:43] LABS: iSTAT Art Bld Gas pCO2 Correct 39 mmHg (35-46); iSTAT Art Bld Gas pH Corrected 7.396 (7.35-7.45); iSTAT Arterial Blood Gas HCO3 24 meg/L (19-24); iSTAT Arterial Blood Gas pCO2 39 mmHg (35-46); iSTAT Arterial Blood Gas pO2 78 mmHg (80-95); iSTAT Arterial Blood Gas pO2 C 79; iSTAT Carbon Dioxide 25 mmol/L (24-31); iSTAT FiO2 30 %; iSTAT Hematocrit 35 % (42-52); iSTAT Hemoglobin 11.9 g/dl (14.0-18.0); iSTAT Potassium 3.5 mmol/L (3.3-5.0); iSTAT Site Art Line; iSTAT Sodium 135 mmol/L (135-144)
[2020-10-27] MEDS: CISATRACURIUM BESYLATE 40 MG in 0.9 % SODIUM CHLORIDE 80 ML IV SCH ×5 (03:47→20:22)
[2020-10-27] MEDS: HEPARIN SODIUM/DEXTROSE 25,000 UNITS/500 ML BAG IV SCH ×3 (03:48→22:04)
[2020-10-27] MEDS: fentaNYL DRIP 1,250 MCG/250 ML BAG IV SCH ×2 (03:48→20:18)
[2020-10-27] MEDS: NOREPINEPHRINE/D5W 8 MG/508 ML BAG IV SCH ×2 (04:43→19:32)
[2020-10-27 04:51] LABS: Mean Corpuscular Hgb Conc 31.8 g/dL (32-36)
[2020-10-27 05:03] LABS: Partial Thromboplastin Ratio 1.5; Partial Thromboplastin Time 40.4 Seconds (21.0-31.0)
[2020-10-27 05:04] LABS: Hematocrit (blood only) 33.3 % (42-52); Hemoglobin 10.6 g/dL (14.0-18.0); Mean Corpuscular Volume 75.3 fL (80-100); RDW Coefficient of Variation 16.7 % (11.5-14.5); RDW Standard Deviation 46.6 fL (36.4-46.3); Red Blood Count 4.42 M/uL (4.7-6.1); White Blood Count 7.16 K/uL (4.8-10.8)
[2020-10-27 05:08] LABS: BUN Creatinine Ratio 24.2 (10-20); Calcium 7.2 mg/dl (8.5-10.1); Creatinine Clr Calc Pharmacy 74.9 ml/min; Est GFR (Non-African American) 51.8; Magnesium 2.2 mg/dl (1.8-2.4); Potassium 3.5 mmol/L (3.5-5.1)
[2020-10-27 05:11] LABS: Bilirubin,Total 1.3 mg/dl (0.2-1); Phosphorus 2.2 mg/dl (2.5-4.9); Total Protein 5.9 gm/dl (6.4-8.2)
[2020-10-27 05:56] LABS: Basophils # (auto) 0.03 K/uL (0-0.2); Basophils % (auto) 0.4 %; Eosinophils # (auto) 0.11 K/uL (0-0.5); Eosinophils % (auto) 1.5 %; Immature Granulocytes # (auto) 0.14 K/uL (0.00-0.02); Lymphocytes # (auto) 0.86 K/uL (1.2-3.4); Mean Platelet Volume 10.3 fL (7.4-10.4); Monocytes # (auto) 0.72 K/uL (0.11-0.59); Monocytes % (auto) 10.1 %; Platelet Count 124 K/uL (130-400); Platelet Estimate Normal (Normal)
[2020-10-27] MEDS ORDERED: POTASSIUM PHOS 3 MMOL/1 ML INFUSION IV STA (06:44)
[2020-10-27] MEDS ORDERED: POTASSIUM PHOSPHATE 15 MMOL in SODIUM CHLORIDE 0.9% 250 ML IV ONE (07:00)
--- NOTE | 2020-10-27 07:19 | XRay Report ---
XR chest 1V portable CLINICAL HISTORY: f/u COMPARISON STUDY: Chest CT October 24, 2020. Chest radiograph October 26, 2020. FINDINGS: Tip of endotracheal tube is 5.2 cm above the braden. Right internal jugular central line re david in place. Tip of nasogastric tube is below the lower aspect of this image but at least within t he stomach. There is no pneumothorax. Small bilateral pleural effusions and bibasilar opacities have increased. Interstitial pulmonary edema is now noted. IMPRESSION: 1. Tip of endotracheal tube 5.1 cm above the braden. 2. Increase in small bilateral pleural effusions and bibasilar opacities. 3. Interval development of mild interstitial pulmonary edema. ACT 112: Negative or not required by law. Electronically signed by: Oscar Schneider M.D. 10/27/2020 7:18 AM
[2020-10-27] MEDS: MIDAZOLAM HCL 125 MG/250 ML BAG IV PRN (07:28)
[2020-10-27] MEDS: DOXYCYCLINE HYCLATE 100 MG in DEXTROSE 5% 100 ML IV SCH ×2 (07:31→20:33)
[2020-10-27] MEDS: FOLIC ACID 1 MG in SYRINGE 9.8 ML IV SCH (07:31)
[2020-10-27] MEDS: THIAMINE HCL 100 MG in SYRINGE 9 ML IV SCH (07:31)
[2020-10-27] MEDS: guaiFENesin 600 MG TABCR PO SCH (07:32)
--- NOTE | 2020-10-27 07:56 | Critical Care Progress Note ---
Date of Service October 27, 2020 Assessment & Plan (1) Cardiac arrest: Reason critically ill: 5-year-old male status post in-hospital cardiac arrest with ROSC requiring close hemodynamic monitoring, now completed rewarming protocol. Neuro: -[facility] ICU: Unable to assess -EEG demonstrating severe background suppression consistent with severe nonspecific encephalopathy -Alcohol abuse: -AWSS protocol with Ativan available -CT head demonstrating no acute intracranial abnormality -Wean fentanyl/Versed sedation -Discontinue paralytic -Start thiamine 200 mg twice daily, folate daily Cardiac/Vascular: -In-hospital cardiac arrest with ROSC -Estimated downtime approximately 10 minutes -Completed TTM and rewarming protocol -A. fib with RVR -Continue amiodarone -Cardiology consulted -Echo demonstrated EF 60 to 65%, midseptal dyssynergy, no regional wall abnormalities -CXR this a.m. demonstrating increased pleural effusions and increased pulmonary edema from previous -Trial Lasix 40 mg IV, repeat CXR in a.m. Respiratory: -Respiratory failure -Secondary to cardiac arrest, intubated during code -wean off ventilator as tolerated GI/Nutrition: -continue Peptamen -GI PPx: Protonix Renal/Lytes: -Acute kidney injury superimposed on chronic kidney disease -discontinue IV Normosol@80 mL/hr -Electrolyte abnormalities -K 3.5 this AM, Phos 2.2 this a.m. -repleted with 15mmol of KPhos -Continue to monitor daily : -Brock in place -Net 1.3L positive -Continue to monitor strict I's and O's ENDO: -History of type 2 diabetes -Sliding scale insulin with monitoring of BSG's per ICU protocol HEME: -Hgb stable at 10.6 this a.m. -Continue to monitor ID: -Continue doxycycline and Zosyn -Blood cultures x4 with no growth to date -Procal 1.91 -Sputum culture sent Lines/IV Access: -PIV x2 -Right IJ DVT Prophylaxis: -continue systemic heparin (2) Respiratory failure: (3) Acute on chronic renal failure: (4) Chronic diastolic heart failure: (5) Acute diastolic (congestive) heart failure: (6) Pneumonia: (7) Shortness of breath: (8) Depression: (9) Alcohol abuse: Admission and Anticipated Discharge Date Admission Date: October 23, 2020 Supervising Physician Co-Signing Physician Notes Patient seen and examined. Discussed on multidisciplinary rounds as well as with ICU bedside nurse and with the family practice resident. Agree with assessment and plan as noted. 65-year-old male status post in-hospital cardiac arrest. Will discontinue paralytics and try and wean sedation today to get a better assessment of where we are from a neurological standpoint. Decisions regarding extubation and liberation from the mechanical ventilator will depend on assessment of his neurological status. Patient likely has underlying sleep disordered breathing. He does have demonstration of dynamic airway collapse noted on the CT scan so would likely benefit from long-term positive airway pressure ventilation at night. Outpatient polysomnogram should be considered if it has not been performed previously. Patient continues to be managed for alcohol withdrawal. We will continue benzodiazepines and consider Precedex if needed. Thiamine and folate in place. We will judiciously use Lasix to see if we can improve his volume status. Hold additional IV fluids currently. Patient is currently on doxycycline and Zosyn. Depending on his neurological status may require repeat imaging or additional neuro evaluation. Overall prognosis is guarded. Subjective Overnight patient had cool temperature approximately 2:30 AM, did have multiple episodes following this in which he had elevated temperatures and subsequently had his cooling catheter restarted for maintenance of appropriate temperatures. With weaning of Nimbex patient continued to have high peak pressures with forced exhalation Review of Systems Review of Systems: Unobtainable due to endotracheal tube and Unobtainable due to reduced consciousness Physical Exam Constitutional: + obese, + disheveled and + mechanically ventilated Eyes: PERRL, conjunctivae normal, anicteric sclerae Respiratory: + abnormal respiratory effort Auscultation: + crackles (b/l lower lobes); no rales, no rhonchi and no wheezes Cardiovascular: Rate/Rhythm: regular rate and regular rhythm Heart Sounds: no gallop, no murmur and no cardiac rub Vessels: no JVD Extremities: + edema Gastrointestinal (Abdomen): Inspection/Auscultation: abdomen normal to inspection and normal bowel sounds; abdomen not distended and no abdominal edema Skin: Chronic appearing venous stasis changes b/l, psoriatic skin changes b/l Neurologic: Intubated, sedated with fentanyl Versed; minimally arousable to tactile and verbal stimulation no purposeful movements, no eye contact, not following commands Results & Data Results & Data ([facility]) Vital Signs (Past 12 Hours) Vital Signs Temp Temp Pulse Resp BP BP BP 10/27/20 06:09 37.5 C 115 H 109/76 10/27/20 05:00 37.5 C 99 H 137/78 10/27/20 04:09 37.2 C 117 H 96/60 L 10/27/20 03:30 118 H 16 10/27/20 02:53 37.1 C 115 H 16 134/67 10/27/20 02:00 36.9 C 95 H 16 95/60 L 141/66 H 10/27/20 01:00 36.6 C 87 16 90/52 L 103/61 10/27/20 00:00 36.4 C L 96 H 16 101/64 117/53 L 10/26/20 23:19 96 H 16 10/26/20 23:00 36.1 C L 89 16 102/78 117/59 L 10/26/20 22:00 36 C L 82 16 130/62 128/59 L 10/26/20 21:00 35.9 C L 74 16 121/78 148/67 H 10/26/20 20:00 35.7 C L 67 16 93/60 L 98/46 L Pulse Ox 10/27/20 06:09 100 10/27/20 05:00 100 10/27/20 04:09 93 10/27/20 03:30 93 10/27/20 02:53 93 10/27/20 02:00 94 10/27/20 01:00 96 10/27/20 00:00 96 10/26/20 23:19 97 10/26/20 23:00 98 10/26/20 22:00 100 10/26/20 21:00 100 10/26/20 20:00 100 Laboratory Results 10/27/20 10/27/20 10/27/20 Range/Units 12:59 12:33 11:20 WBC (4.8-10.8) K/uL RBC (4.7-6.1) M/uL Hgb (14.0-18.0) g/dL POC Hgb 12.6 L 12.6 L (14.0-18.0) g/dl Hct (42-52) % POC Hct 37 L 37 L (42-52) % MCV (80-100) fL MCH (25-34) pg MCHC (32-36) g/dL RDW Std Deviation (36.4-46.3) fL RDW Coeff of Noam (11.5-14.5) % Plt Count (130-400) K/uL MPV (7.4-10.4) fL Immature Gran % (Auto) % Neut % (Auto) % Lymph % (Auto) % Menard % (Auto) % Eos % (Auto) % Baso % (Auto) % Neut # (Auto) (1.4-6.5) K/uL Lymph # (Auto) (1.2-3.4) K/uL Menard # (Auto) (0.11-0.59) K/uL Eos # (Auto) (0-0.5) K/uL Baso # (Auto) (0-0.2) K/uL Immature Gran # (Auto) (0.00-0.02) K/uL Platelet Estimate (Normal) APTT (21.0-31.0) Seconds PTT Ratio Sample Site Art Line POC pH 7.31 L 7.26 L (7.35-7.45) POC pCO2 47 H 52 H (35-46) mmHg POC pO2 133 H 77 L (80-95) mmHg POC HCO3 24 23 (19-24) suellen/L POC Total CO2 25 25 (24-31) mmol/L POC Base Excess -3.0 -4.0 (-9-1.8) suellen/L ABG pH (Temp Correct) 7.297 L (7.35-7.45) ABG pCO2 (Temp Corrct 49 H (35-46) mmHg POC ABG pO2 at Pt Temp 138 POC ABG O2 Sat 99.0 H 93.0 (90-95) % Alex Test NA O2 Delivery Device Ventilator POC O2 Rate 20 Minute Ventilation POC FiO2 40 % Tidal Volume 580 PEEP 8 POC Sodium 133 L 135 (135-144) mmol/L Sodium (136-145) mmol/L POC Potassium 4.5 4.8 (3.3-5.0) mmol/L Potassium (3.5-5.1) mmol/L Chloride (98-107) mmol/L Carbon Dioxide (21-32) mmol/L Anion Gap (3-11) BUN (7-18) mg/dl Creatinine (0.6-1.4) mg/dl Est Cr Clr Drug Dosing ml/min Est GFR ( Amer) Est GFR (Non-Af Amer) BUN/Creatinine Ratio (10-20) Glucose (70-99) mg/dl POC Glucose (other) 102 H (70-99) mg/dl Calcium (8.5-10.1) mg/dl Ionized Calcium (1.12-1.32) mmol/L Phosphorus (2.5-4.9) mg/dl Magnesium (1.8-2.4) mg/dl Total Bilirubin (0.2-1) mg/dl Direct Bilirubin (0-0.2) mg/dl AST (15-37) U/L ALT (12-78) U/L Alkaline Phosphatase (45-117) U/L Total Protein (6.4-8.2) gm/dl Albumin (3.4-5.0) gm/dl Procalcitonin (0-0.5) ng/ml 10/27/20 10/27/20 10/27/20 Range/Units 11:13 07:42 04:36 WBC (4.8-10.8) K/uL RBC (4.7-6.1) M/uL Hgb (14.0-18.0) g/dL POC Hgb 11.6 L (14.0-18.0) g/dl Hct (42-52) % POC Hct 34 L (42-52) % MCV (80-100) fL MCH (25-34) pg MCHC (32-36) g/dL RDW Std Deviation (36.4-46.3) fL RDW Coeff of Noam (11.5-14.5) % Plt Count (130-400) K/uL MPV (7.4-10.4) fL Immature Gran % (Auto) % Neut % (Auto) % Lymph % (Auto) % Menard % (Auto) % Eos % (Auto) % Baso % (Auto) % Neut # (Auto) (1.4-6.5) K/uL Lymph # (Auto) (1.2-3.4) K/uL Menard # (Auto) (0.11-0.59) K/uL Eos # (Auto) (0-0.5) K/uL Baso # (Auto) (0-0.2) K/uL Immature Gran # (Auto) (0.00-0.02) K/uL Platelet Estimate (Normal) APTT 45.0 H (21.0-31.0) Seconds PTT Ratio 1.7 Sample Site Art Line POC pH 7.38 (7.35-7.45) POC pCO2 40 (35-46) mmHg POC pO2 95 (80-95) mmHg POC HCO3 24 (19-24) suellen/L POC Total CO2 25 (24-31) mmol/L POC Base Excess -2.0 (-9-1.8) suellen/L ABG pH (Temp Correct) 7.359 (7.35-7.45) ABG pCO2 (Temp Corrct 42 (35-46) mmHg POC ABG pO2 at Pt Temp 103 POC ABG O2 Sat 97.0 H (90-95) % Alex Test NA O2 Delivery Device Ventilator POC O2 Rate 16 Minute Ventilation POC FiO2 30 % Tidal Volume 500 PEEP 5 POC Sodium 136 (135-144) mmol/L Sodium (136-145) mmol/L POC Potassium 3.8 (3.3-5.0) mmol/L Potassium (3.5-5.1) mmol/L Chloride (98-107) mmol/L Carbon Dioxide (21-32) mmol/L Anion Gap (3-11) BUN (7-18) mg/dl Creatinine (0.6-1.4) mg/dl Est Cr Clr Drug Dosing ml/min Est GFR ( Amer) Est GFR (Non-Af Amer) BUN/Creatinine Ratio (10-20) Glucose (70-99) mg/dl POC Glucose (other) (70-99) mg/dl Calcium (8.5-10.1) mg/dl Ionized Calcium (1.12-1.32) mmol/L Phosphorus (2.5-4.9) mg/dl Magnesium (1.8-2.4) mg/dl Total Bilirubin (0.2-1) mg/dl Direct Bilirubin (0-0.2) mg/dl AST (15-37) U/L ALT (12-78) U/L Alkaline Phosphatase (45-117) U/L Total Protein (6.4-8.2) gm/dl Albumin (3.4-5.0) gm/dl Procalcitonin 1.91 H (0-0.5) ng/ml 10/27/20 10/27/20 10/27/20 Range/Units 04:36 04:36 04:36 WBC (4.8-10.8) K/uL RBC (4.7-6.1) M/uL Hgb (14.0-18.0) g/dL POC Hgb (14.0-18.0) g/dl Hct (42-52) % POC Hct (42-52) % MCV (80-100) fL MCH (25-34) pg MCHC (32-36) g/dL RDW Std Deviation (36.4-46.3) fL RDW Coeff of Noam (11.5-14.5) % Plt Count (130-400) K/uL MPV (7.4-10.4) fL Immature Gran % (Auto) % Neut % (Auto) % Lymph % (Auto) % Menard % (Auto) % Eos % (Auto) % Baso % (Auto) % Neut # (Auto) (1.4-6.5) K/uL Lymph # (Auto) (1.2-3.4) K/uL Menard # (Auto) (0.11-0.59) K/uL Eos # (Auto) (0-0.5) K/uL Baso # (Auto) (0-0.2) K/uL Immature Gran # (Auto) (0.00-0.02) K/uL Platelet Estimate (Normal) APTT 40.4 H (21.0-31.0) Seconds PTT Ratio 1.5 Sample Site POC pH (7.35-7.45) POC pCO2 (35-46) mmHg POC pO2 (80-95) mmHg POC HCO3 (19-24) suellen/L POC Total CO2 (24-31) mmol/L POC Base Excess (-9-1.8) suellen/L ABG pH (Temp Correct) (7.35-7.45) ABG pCO2 (Temp Corrct (35-46) mmHg POC ABG pO2 at Pt Temp POC ABG O2 Sat (90-95) % Alex Test O2 Delivery Device POC O2 Rate Minute Ventilation POC FiO2 % Tidal Volume PEEP POC Sodium (135-144) mmol/L Sodium 139 (136-145) mmol/L POC Potassium (3.3-5.0) mmol/L Potassium 3.5 (3.5-5.1) mmol/L Chloride 107 (98-107) mmol/L Carbon Dioxide 24 (21-32) mmol/L Anion Gap 8.0 (3-11) BUN 35 H (7-18) mg/dl Creatinine 1.43 H (0.6-1.4) mg/dl Est Cr Clr Drug Dosing 74.9 ml/min Est GFR ( Amer) 60.0 Est GFR (Non-Af Amer) 51.8 BUN/Creatinine Ratio 24.2 H (10-20) Glucose 91 (70-99) mg/dl POC Glucose (other) (70-99) mg/dl Calcium 7.2 L (8.5-10.1) mg/dl Ionized Calcium 1.04 L (1.12-1.32) mmol/L Phosphorus 2.2 L (2.5-4.9) mg/dl Magnesium 2.2 (1.8-2.4) mg/dl Total Bilirubin 1.3 H (0.2-1) mg/dl Direct Bilirubin 1.0 H (0-0.2) mg/dl AST 59 H (15-37) U/L ALT 39 (12-78) U/L Alkaline Phosphatase 66 (45-117) U/L Total Protein 5.9 L (6.4-8.2) gm/dl Albumin 2.0 L (3.4-5.0) gm/dl Procalcitonin (0-0.5) ng/ml 10/27/20 10/27/20 10/27/20 Range/Units 04:36 03:30 00:11 WBC 7.16 (4.8-10.8) K/uL RBC 4.42 L (4.7-6.1) M/uL Hgb 10.6 L (14.0-18.0) g/dL POC Hgb 11.9 L (14.0-18.0) g/dl Hct 33.3 L (42-52) % POC Hct 35 L (42-52) % MCV 75.3 L (80-100) fL MCH 24.0 L (25-34) pg MCHC 31.8 L (32-36) g/dL RDW Std Deviation 46.6 H (36.4-46.3) fL RDW Coeff of Noam 16.7 H (11.5-14.5) % Plt Count 124 L (130-400) K/uL MPV 10.3 (7.4-10.4) fL Immature Gran % (Auto) 2.0 % Neut % (Auto) 74.0 % Lymph % (Auto) 12.0 % Menard % (Auto) 10.1 % Eos % (Auto) 1.5 % Baso % (Auto) 0.4 % Neut # (Auto) 5.30 (1.4-6.5) K/uL Lymph # (Auto) 0.86 L (1.2-3.4) K/uL Menard # (Auto) 0.72 H (0.11-0.59) K/uL Eos # (Auto) 0.11 (0-0.5) K/uL Baso # (Auto) 0.03 (0-0.2) K/uL Immature Gran # (Auto) 0.14 H (0.00-0.02) K/uL Platelet Estimate Normal (Normal) APTT (21.0-31.0) Seconds PTT Ratio Sample Site Art Line POC pH 7.40 (7.35-7.45) POC pCO2 39 (35-46) mmHg POC pO2 78 L (80-95) mmHg POC HCO3 24 (19-24) suellen/L POC Total CO2 25 (24-31) mmol/L POC Base Excess -1.0 (-9-1.8) suellen/L ABG pH (Temp Correct) 7.396 (7.35-7.45) ABG pCO2 (Temp Corrct 39 (35-46) mmHg POC ABG pO2 at Pt Temp 79 POC ABG O2 Sat 95.0 (90-95) % Alex Test NA O2 Delivery Device Ventilator POC O2 Rate 16 Minute Ventilation 8.0 POC FiO2 30 % Tidal Volume 500 PEEP 8 POC Sodium 135 (135-144) mmol/L Sodium (136-145) mmol/L POC Potassium 3.5 (3.3-5.0) mmol/L Potassium (3.5-5.1) mmol/L Chloride (98-107) mmol/L Carbon Dioxide (21-32) mmol/L Anion Gap (3-11) BUN (7-18) mg/dl Creatinine (0.6-1.4) mg/dl Est Cr Clr Drug Dosing ml/min Est GFR ( Amer) Est GFR (Non-Af Amer) BUN/Creatinine Ratio (10-20) Glucose (70-99) mg/dl POC Glucose (other) (70-99) mg/dl Calcium (8.5-10.1) mg/dl Ionized Calcium 1.06 L (1.12-1.32) mmol/L Phosphorus (2.5-4.9) mg/dl Magnesium (1.8-2.4) mg/dl Total Bilirubin (0.2-1) mg/dl Direct Bilirubin (0-0.2) mg/dl AST (15-37) U/L ALT (12-78) U/L Alkaline Phosphatase (45-117) U/L Total Protein (6.4-8.2) gm/dl Albumin (3.4-5.0) gm/dl Procalcitonin (0-0.5) ng/ml 10/27/20 10/27/20 10/26/20 Range/Units 00:11 00:11 23:23 WBC (4.8-10.8) K/uL RBC (4.7-6.1) M/uL Hgb 10.6 L (14.0-18.0) g/dL POC Hgb (14.0-18.0) g/dl Hct 32.2 L (42-52) % POC Hct (42-52) % MCV (80-100) fL MCH (25-34) pg MCHC (32-36) g/dL RDW Std Deviation (36.4-46.3) fL RDW Coeff of Noam (11.5-14.5) % Plt Count (130-400) K/uL MPV (7.4-10.4) fL Immature Gran % (Auto) % Neut % (Auto) % Lymph % (Auto) % Menard % (Auto) % Eos % (Auto) % Baso % (Auto) % Neut # (Auto) (1.4-6.5) K/uL Lymph # (Auto) (1.2-3.4) K/uL Menard # (Auto) (0.11-0.59) K/uL Eos # (Auto) (0-0.5) K/uL Baso # (Auto) (0-0.2) K/uL Immature Gran # (Auto) (0.00-0.02) K/uL Platelet Estimate (Normal) APTT (21.0-31.0) Seconds PTT Ratio Sample Site POC pH (7.35-7.45) POC pCO2 (35-46) mmHg POC pO2 (80-95) mmHg POC HCO3 (19-24) suellen/L POC Total CO2 (24-31) mmol/L POC Base Excess (-9-1.8) suellen/L ABG pH (Temp Correct) (7.35-7.45) ABG pCO2 (Temp Corrct (35-46) mmHg POC ABG pO2 at Pt Temp POC ABG O2 Sat (90-95) % Alex Test O2 Delivery Device POC O2 Rate Minute Ventilation POC FiO2 % Tidal Volume PEEP POC Sodium (135-144) mmol/L Sodium 138 (136-145) mmol/L POC Potassium (3.3-5.0) mmol/L Potassium 3.6 (3.5-5.1) mmol/L Chloride 104 (98-107) mmol/L Carbon Dioxide 25 (21-32) mmol/L Anion Gap 9.0 (3-11) BUN 38 H (7-18) mg/dl Creatinine 1.46 H (0.6-1.4) mg/dl Est Cr Clr Drug Dosing 73.4 ml/min Est GFR ( Amer) 58.5 Est GFR (Non-Af Amer) 50.5 BUN/Creatinine Ratio 25.7 H (10-20) Glucose 110 H (70-99) mg/dl POC Glucose (other) 112 H (70-99) mg/dl Calcium 7.7 L (8.5-10.1) mg/dl Ionized Calcium (1.12-1.32) mmol/L Phosphorus 2.5 (2.5-4.9) mg/dl Magnesium 2.3 (1.8-2.4) mg/dl Total Bilirubin (0.2-1) mg/dl Direct Bilirubin (0-0.2) mg/dl AST (15-37) U/L ALT (12-78) U/L Alkaline Phosphatase (45-117) U/L Total Protein (6.4-8.2) gm/dl Albumin (3.4-5.0) gm/dl Procalcitonin (0-0.5) ng/ml 10/26/20 10/26/20 10/26/20 Range/Units 23:19 19:45 19:45 WBC (4.8-10.8) K/uL RBC (4.7-6.1) M/uL Hgb (14.0-18.0) g/dL POC Hgb 11.9 L (14.0-18.0) g/dl Hct (42-52) % POC Hct 35 L (42-52) % MCV (80-100) fL MCH (25-34) pg MCHC (32-36) g/dL RDW Std Deviation (36.4-46.3) fL RDW Coeff of Noam (11.5-14.5) % Plt Count (130-400) K/uL MPV (7.4-10.4) fL Immature Gran % (Auto) % Neut % (Auto) % Lymph % (Auto) % Menard % (Auto) % Eos % (Auto) % Baso % (Auto) % Neut # (Auto) (1.4-6.5) K/uL Lymph # (Auto) (1.2-3.4) K/uL Menard # (Auto) (0.11-0.59) K/uL Eos # (Auto) (0-0.5) K/uL Baso # (Auto) (0-0.2) K/uL Immature Gran # (Auto) (0.00-0.02) K/uL Platelet Estimate (Normal) APTT 54.4 H* (21.0-31.0) Seconds PTT Ratio 2.1 Sample Site Art Line POC pH 7.37 (7.35-7.45) POC pCO2 42 (35-46) mmHg POC pO2 84 (80-95) mmHg POC HCO3 24 (19-24) suellen/L POC Total CO2 25 (24-31) mmol/L POC Base Excess -1.0 (-9-1.8) suellen/L ABG pH (Temp Correct) 7.376 (7.35-7.45) ABG pCO2 (Temp Corrct 41 (35-46) mmHg POC ABG pO2 at Pt Temp 80 POC ABG O2 Sat 96.0 H (90-95) % Alex Test NA O2 Delivery Device Ventilator POC O2 Rate 16 Minute Ventilation 8.0 POC FiO2 30 % Tidal Volume 500 PEEP 8 POC Sodium 137 (135-144) mmol/L Sodium (136-145) mmol/L POC Potassium 3.6 (3.3-5.0) mmol/L Potassium (3.5-5.1) mmol/L Chloride (98-107) mmol/L Carbon Dioxide (21-32) mmol/L Anion Gap (3-11) BUN (7-18) mg/dl Creatinine (0.6-1.4) mg/dl Est Cr Clr Drug Dosing ml/min Est GFR ( Amer) Est GFR (Non-Af Amer) BUN/Creatinine Ratio (10-20) Glucose (70-99) mg/dl POC Glucose (other) (70-99) mg/dl Calcium (8.5-10.1) mg/dl Ionized Calcium 1.05 L (1.12-1.32) mmol/L Phosphorus (2.5-4.9) mg/dl Magnesium (1.8-2.4) mg/dl Total Bilirubin (0.2-1) mg/dl Direct Bilirubin (0-0.2) mg/dl AST (15-37) U/L ALT (12-78) U/L Alkaline Phosphatase (45-117) U/L Total Protein (6.4-8.2) gm/dl Albumin (3.4-5.0) gm/dl Procalcitonin (0-0.5) ng/ml 10/26/20 10/26/20 10/26/20 Range/Units 19:45 19:45 19:40 WBC (4.8-10.8) K/uL RBC (4.7-6.1) M/uL Hgb 10.4 L (14.0-18.0) g/dL POC Hgb 11.2 L (14.0-18.0) g/dl Hct 32.1 L (42-52) % POC Hct 33 L (42-52) % MCV (80-100) fL MCH (25-34) pg MCHC (32-36) g/dL RDW Std Deviation (36.4-46.3) fL RDW Coeff of Noam (11.5-14.5) % Plt Count (130-400) K/uL MPV (7.4-10.4) fL Immature Gran % (Auto) % Neut % (Auto) % Lymph % (Auto) % Menard % (Auto) % Eos % (Auto) % Baso % (Auto) % Neut # (Auto) (1.4-6.5) K/uL Lymph # (Auto) (1.2-3.4) K/uL Menard # (Auto) (0.11-0.59) K/uL Eos # (Auto) (0-0.5) K/uL Baso # (Auto) (0-0.2) K/uL Immature Gran # (Auto) (0.00-0.02) K/uL Platelet Estimate (Normal) APTT (21.0-31.0) Seconds PTT Ratio Sample Site Art Line POC pH 7.40 (7.35-7.45) POC pCO2 39 (35-46) mmHg POC pO2 75 L (80-95) mmHg POC HCO3 24 (19-24) suellen/L POC Total CO2 25 (24-31) mmol/L POC Base Excess -1.0 (-9-1.8) suellen/L ABG pH (Temp Correct) 7.417 (7.35-7.45) ABG pCO2 (Temp Corrct 37 (35-46) mmHg POC ABG pO2 at Pt Temp 68 POC ABG O2 Sat 95.0 (90-95) % Alex Test NA O2 Delivery Device Ventilator POC O2 Rate 16 Minute Ventilation 8.0 POC FiO2 24 % Tidal Volume 500 PEEP 8 POC Sodium 136 (135-144) mmol/L Sodium 136 (136-145) mmol/L POC Potassium 3.5 (3.3-5.0) mmol/L Potassium 3.5 (3.5-5.1) mmol/L Chloride 104 (98-107) mmol/L Carbon Dioxide 24 (21-32) mmol/L Anion Gap 9.0 (3-11) BUN 40 H (7-18) mg/dl Creatinine 1.46 H (0.6-1.4) mg/dl Est Cr Clr Drug Dosing 73.4 ml/min Est GFR ( Amer) 58.5 Est GFR (Non-Af Amer) 50.5 BUN/Creatinine Ratio 27.1 H (10-20) Glucose 114 H (70-99) mg/dl POC Glucose (other) (70-99) mg/dl Calcium 8.1 L (8.5-10.1) mg/dl Ionized Calcium (1.12-1.32) mmol/L Phosphorus 2.4 L (2.5-4.9) mg/dl Magnesium 2.3 (1.8-2.4) mg/dl Total Bilirubin (0.2-1) mg/dl Direct Bilirubin (0-0.2) mg/dl AST (15-37) U/L ALT (12-78) U/L Alkaline Phosphatase (45-117) U/L Total Protein (6.4-8.2) gm/dl Albumin (3.4-5.0) gm/dl Procalcitonin (0-0.5) ng/ml 10/26/20 10/26/20 10/26/20 Range/Units 16:02 15:56 15:56 WBC (4.8-10.8) K/uL RBC (4.7-6.1) M/uL Hgb (14.0-18.0) g/dL POC Hgb (14.0-18.0) g/dl Hct (42-52) % POC Hct (42-52) % MCV (80-100) fL MCH (25-34) pg MCHC (32-36) g/dL RDW Std Deviation (36.4-46.3) fL RDW Coeff of Noam (11.5-14.5) % Plt Count (130-400) K/uL MPV (7.4-10.4) fL Immature Gran % (Auto) % Neut % (Auto) % Lymph % (Auto) % Menard % (Auto) % Eos % (Auto) % Baso % (Auto) % Neut # (Auto) (1.4-6.5) K/uL Lymph # (Auto) (1.2-3.4) K/uL Menard # (Auto) (0.11-0.59) K/uL Eos # (Auto) (0-0.5) K/uL Baso # (Auto) (0-0.2) K/uL Immature Gran # (Auto) (0.00-0.02) K/uL Platelet Estimate (Normal) APTT (21.0-31.0) Seconds PTT Ratio Sample Site Art Line POC pH 7.38 (7.35-7.45) POC pCO2 39 (35-46) mmHg POC pO2 68 L (80-95) mmHg POC HCO3 23 (19-24) suellen/L POC Total CO2 24 (24-31) mmol/L POC Base Excess -2.0 (-9-1.8) suellen/L ABG pH (Temp Correct) (7.35-7.45) ABG pCO2 (Temp Corrct (35-46) mmHg POC ABG pO2 at Pt Temp POC ABG O2 Sat 93.0 (90-95) % Alex Test NA O2 Delivery Device Ventilator POC O2 Rate 16 Minute Ventilation POC FiO2 24 % Tidal Volume 500 PEEP 8 POC Sodium (135-144) mmol/L Sodium 136 (136-145) mmol/L POC Potassium (3.3-5.0) mmol/L Potassium 3.5 (3.5-5.1) mmol/L Chloride 103 (98-107) mmol/L Carbon Dioxide 24 (21-32) mmol/L Anion Gap 9.0 (3-11) BUN 41 H (7-18) mg/dl Creatinine 1.52 H (0.6-1.4) mg/dl Est Cr Clr Drug Dosing 70.5 ml/min Est GFR ( Amer) 55.7 Est GFR (Non-Af Amer) 48.1 BUN/Creatinine Ratio 26.8 H (10-20) Glucose 116 H (70-99) mg/dl POC Glucose (other) (70-99) mg/dl Calcium 8.1 L (8.5-10.1) mg/dl Ionized Calcium 1.06 L (1.12-1.32) mmol/L Phosphorus 2.5 (2.5-4.9) mg/dl Magnesium 2.3 (1.8-2.4) mg/dl Total Bilirubin (0.2-1) mg/dl Direct Bilirubin (0-0.2) mg/dl AST (15-37) U/L ALT (12-78) U/L Alkaline Phosphatase (45-117) U/L Total Protein (6.4-8.2) gm/dl Albumin (3.4-5.0) gm/dl Procalcitonin (0-0.5) ng/ml 02/07/21 02/07/21 02/07/21 Range/Units 15:56 11:33 08:57 WBC (4.8-10.8) K/uL RBC (4.7-6.1) M/uL Hgb 10.6 L (14.0-18.0) g/dL POC Hgb (14.0-18.0) g/dl Hct 32.2 L (42-52) % POC Hct (42-52) % MCV (80-100) fL MCH (25-34) pg MCHC (32-36) g/dL RDW Std Deviation (36.4-46.3) fL RDW Coeff of Noam (11.5-14.5) % Plt Count (130-400) K/uL MPV (7.4-10.4) fL Immature Gran % (Auto) % Neut % (Auto) % Lymph % (Auto) % Menard % (Auto) % Eos % (Auto) % Baso % (Auto) % Neut # (Auto) (1.4-6.5) K/uL Lymph # (Auto) (1.2-3.4) K/uL Menard # (Auto) (0.11-0.59) K/uL Eos # (Auto) (0-0.5) K/uL Baso # (Auto) (0-0.2) K/uL Immature Gran # (Auto) (0.00-0.02) K/uL Platelet Estimate (Normal) APTT (21.0-31.0) Seconds PTT Ratio Sample Site Art Line Art Line POC pH 7.39 7.41 (7.35-7.45) POC pCO2 37 36 (35-46) mmHg POC pO2 92 92 (80-95) mmHg POC HCO3 23 23 (19-24) suellen/L POC Total CO2 24 24 (24-31) mmol/L POC Base Excess -2.0 -2.0 (-9-1.8) suellen/L ABG pH (Temp Correct) (7.35-7.45) ABG pCO2 (Temp Corrct (35-46) mmHg POC ABG pO2 at Pt Temp POC ABG O2 Sat 97.0 H 97.0 H (90-95) % Alex Test NA NA O2 Delivery Device Ventilator Ventilator POC O2 Rate 16 16 Minute Ventilation POC FiO2 24 24 % Tidal Volume 500 500 PEEP 8 8 POC Sodium (135-144) mmol/L Sodium (136-145) mmol/L POC Potassium (3.3-5.0) mmol/L Potassium (3.5-5.1) mmol/L Chloride (98-107) mmol/L Carbon Dioxide (21-32) mmol/L Anion Gap (3-11) BUN (7-18) mg/dl Creatinine (0.6-1.4) mg/dl Est Cr Clr Drug Dosing ml/min Est GFR ( Amer) Est GFR (Non-Af Amer) BUN/Creatinine Ratio (10-20) Glucose (70-99) mg/dl POC Glucose (other) (70-99) mg/dl Calcium (8.5-10.1) mg/dl Ionized Calcium (1.12-1.32) mmol/L Phosphorus (2.5-4.9) mg/dl Magnesium (1.8-2.4) mg/dl Total Bilirubin (0.2-1) mg/dl Direct Bilirubin (0-0.2) mg/dl AST (15-37) U/L ALT (12-78) U/L Alkaline Phosphatase (45-117) U/L Total Protein (6.4-8.2) gm/dl Albumin (3.4-5.0) gm/dl Procalcitonin (0-0.5) ng/ml Medications Administered Current Inpatient Medications Albuterol (Albut/Ipratrop 3mg/0.5mg Neb 3 Ml Vial) 3 ml NEB Q4R PRN PRN Reason: Shortness Of Breath Or Wheezing Stop: 11/26/20 10:59 Last Admin: 10/27/20 10:26 Dose: 3 ml Documented by: Dextrose (Dextrose 50% 50 Ml Syringe) 25 - 50 ml IV UD PRN; Protocol PRN Reason: Hypoglycemia Protocol Stop: 11/26/20 10:14 Fentanyl Citrate (Fentanyl Bolus From Bag) 50 mcg IV Q60M PRN PRN Reason: Pain or Agitation Stop: 11/07/20 22:29 Last Admin: 10/27/20 05:59 Dose: 50 mcg Documented by: Glucagon (Glucagon For Inj 1 Mg Vial) 1 mg IM UD PRN; Protocol PRN Reason: Hypoglycemia Protocol Stop: 11/26/20 10:14 Glucose (Glucose 40% Gel 15 Gm Tube) 15 - 30 gm PO UD PRN; Protocol PRN Reason: Hypoglycemia Protocol Stop: 11/26/20 10:14 Glucose (Glucose 10 Tabs/Tube) 4 - 8 tabs PO UD PRN; Protocol PRN Reason: Hypoglycemia Protocol Stop: 11/26/20 10:14 Lorazepam (Ativan) 1 mg in 2 mls @ 2 mls/min IV UD PRN; Protocol PRN Reason: EtOH Withdrawl AWSS Score 6,7 Stop: 11/22/20 01:12 Folic Acid 1 mg/ Syringe 10 mls @ 5 mls/min IV QAM [place] Stop: 11/22/20 08:59 Last Admin: 10/27/20 07:31 Dose: 5 mls/min Documented by: Lorazepam (Ativan) 2 mg in 4 mls @ 4 mls/min IV UD PRN; Protocol PRN Reason: EtOH Withdrawl AWSS Score 8,9 Stop: 11/22/20 01:12 Last Admin: 10/24/20 21:21 Dose: 4 mls/min Documented by: Lorazepam (Ativan) 3 mg in 6 mls @ 4 mls/min IV ONCE PRN; Protocol PRN Reason: EtOH Withdrawl AWSS Score >=10 Stop: 11/22/20 01:12 Doxycycline Hyclate 100 mg/ (Dextrose) 110 mls @ 50 mls/hr IV Q12H [facility] Stop: 10/30/20 08:59 Last Infusion: 10/27/20 09:54 Dose: Infused Documented by: Furosemide 40 mg/ Syringe 4 mls @ 4 mls/min IV DAILY [facility] Stop: 11/22/20 08:59 Last Admin: 10/23/20 08:36 Dose: 4 mls/min Documented by: Piperacillin Sod/Tazobactam (Sod 4.5 gm/ Dextrose) 120 mls @ 30 mls/hr IV Q8H [facility]; Protocol Stop: 10/31/20 00:00 Last Infusion: 10/27/20 12:09 Dose: Infused Documented by: Midazolam HCl (Versed) 125 mg in 250 mls @ 0 mls/hr IV .Q0M PRN; Protocol PRN Reason: Agitation Stop: 11/23/20 22:29 Last Titration: 10/27/20 09:54 Dose: 0 mg/hr, 0 mls/hr Documented by: Fentanyl Citrate (Fentanyl Drip) 1,250 mcg in 250 mls @ 0 mls/hr IV .Q0M [facility]; Protocol Stop: 11/07/20 22:29 Last Titration: 10/27/20 09:54 Dose: 0 mcg/hr, 0 mls/hr Documented by: Norepinephrine Bitartrate (Levophed/D5w) 8 mg in 508 mls @ 23.089 mls/hr IV .Q22H1M [facility]; Protocol Stop: 11/23/20 23:44 Last Titration: 10/27/20 13:12 Dose: 0.08 mcg/kg/min, 36.9 mls/hr Documented by: Pantoprazole Sodium 40 mg/ (Syringe) 10 mls @ 5 mls/min IV DAILY@1100 [facility] Stop: 11/24/20 10:59 Last Admin: 10/27/20 12:10 Dose: 5 mls/min Documented by: Heparin Sodium/Dextrose (Heparin Sodium/Dextrose) 25,000 units in 500 mls @ 27 mls/hr IV .[id number] [facility]; Protocol Stop: 11/24/20 13:29 Last Titration: 10/27/20 12:24 Dose: 1,350 units/hr, 27 mls/hr Documented by: Acetaminophen (Ofirmev) 1,000 mg in 100 mls @ 400 mls/hr IV Q8H PRN PRN Reason: Fever Stop: 10/30/20 09:26 Thiamine HCl 200 mg/ Sodium (Chloride) 52 mls @ 208 mls/hr IV BID [facility] Stop: 11/26/20 10:59 Last Infusion: 10/27/20 13:12 Dose: Infused Documented by: Insulin Aspart (Insulin Aspart 100 Units/Ml 3 Ml Pen) 0 units SC Q6 [facility] Stop: 11/26/20 11:59 Last Admin: 10/27/20 12:52 Dose: Not Given Documented by: Metoprolol Tartrate (Metoprolol Tartrate 1 Mg/Ml Vial) 5 mg IV Q6 PRN PRN Reason: Hypertension Stop: 11/22/20 01:12 Midazolam HCl (Midazolam Bolus From Bag) 2 mg IV Q60M PRN PRN Reason: Sedation Stop: 11/23/20 22:29 Miscellaneous (Carbohydrates For Hypoglycemia ) 15 - 30 gm PO UD PRN PRN Reason: Hypoglycemia Treatment Stop: 11/26/20 10:14 Miscellaneous Information (Piperacill/Tazobac Consult Active) 1 ea N/A UD PRN PRN Reason: Consult Stop: 11/22/20 18:26 Nitroglycerin (Nitroglycerin Sl 0.4 Mg/Tab Tab) 0.4 mg SL UD PRN PRN Reason: Chest Pain Stop: 11/22/20 01:12 Nutritional Formula (Peptamen Intense Vhp 1.0 Blaze 1,000 Ml Bag) 1,000 ml OG UD [facility]; Protocol Stop: 11/25/20 11:44 Last Admin: 10/26/20 13:24 Dose: 1,000 ml Documented by: Resident Activity Tracking Resident Involvement: Resident Care Provided Care Provided: Adult Hospital Medicine (1) Pneumonia Laterality: right Lung location: lower lobe of lung Pneumonia type: due to unspecified organism Qualified Code(s): J18.9 - Pneumonia, unspecified organism
[2020-10-27 08:20] LABS: iSTAT Art Bld Gas pCO2 Correct 42 mmHg (35-46); iSTAT Art Bld Gas pH Corrected 7.359 (7.35-7.45); iSTAT Arterial Blood Gas HCO3 24 meg/L (19-24); iSTAT Arterial Blood Gas pCO2 40 mmHg (35-46); iSTAT Arterial Blood Gas pH 7.38 (7.35-7.45); iSTAT Arterial Blood Gas pO2 95 mmHg (80-95); iSTAT Arterial Blood Gas pO2 C 103; iSTAT Carbon Dioxide 25 mmol/L (24-31); iSTAT FiO2 30 %; iSTAT Hematocrit 34 % (42-52); iSTAT Hemoglobin 11.6 g/dl (14.0-18.0); iSTAT Potassium 3.8 mmol/L (3.3-5.0); iSTAT Site Art Line; iSTAT Sodium 136 mmol/L (135-144)
--- NOTE | 2020-10-27 08:35 | Electrocardiogram Report ---
Test Reason : Blood Pressure : / mmHG Vent. Rate : 057 BPM Atrial Rate : 119 BPM P-R Int : 000 ms QRS Dur : 096 ms QT Int : 578 ms P-R-T Axes : 000 052 119 degrees QTc Int : 562 ms Atrial fibrillation with slow ventricular response T wave abnormality, consider anterior ischemia Prolonged QT Abnormal ECG When compared with ECG of 26-OCT-2020 09:10, HR has increased 10 bpm Otherwise no significant change Confirmed by Mukul Salazar ([id number]) on 10/27/2020 8:34:43 AM Referred By: REFERRED SELF Confirmed By:Mukul Salazar
--- NOTE | 2020-10-27 09:01 | Electrocardiogram Report ---
Test Reason : Blood Pressure : / mmHG Vent. Rate : 065 BPM Atrial Rate : 050 BPM P-R Int : 000 ms QRS Dur : 090 ms QT Int : 492 ms P-R-T Axes : 000 053 -68 degrees QTc Int : 511 ms Atrial fibrillation Nonspecific T wave abnormality Anterior leads Prolonged QT Abnormal ECG When compared with ECG of 26-OCT-2020 13:35, T wave inversion no longer evident in Anterior leads Confirmed by Mukul Salazar ([id number]) on 10/27/2020 9:00:43 AM Referred By: REFERRED SELF Confirmed By:Mukul Salazar
--- NOTE | 2020-10-27 09:10 | Electrocardiogram Report ---
Test Reason : Blood Pressure : / mmHG Vent. Rate : 095 BPM Atrial Rate : 107 BPM P-R Int : 000 ms QRS Dur : 092 ms QT Int : 354 ms P-R-T Axes : 000 055 235 degrees QTc Int : 444 ms Atrial fibrillation Diffuse Nonspecific T wave abnormality Abnormal ECG When compared with ECG of 26-OCT-2020 20:04, No significant change Confirmed by Mukul Salazar ([id number]) on 10/27/2020 9:10:21 AM Referred By: REFERRED SELF Confirmed By:Mukul Salazar
[2020-10-27] MEDS ORDERED: FUROSEMIDE 20 MG in SYRINGE 0 ML IV ONE (09:26)
[2020-10-27] MEDS ORDERED: FUROSEMIDE 40 MG/4 ML VIAL IV SCH (09:45)
[2020-10-27] MEDS ORDERED: DEXTROSE 50% 50 ML SYRINGE IV PRN (10:15)
[2020-10-27] MEDS ORDERED: GLUCOSE 40% GEL 15 GM TUBE PO PRN (10:15)
[2020-10-27] MEDS ORDERED: GLUCAGON FOR INJ 1 MG VIAL IM PRN (10:15)
[2020-10-27] MEDS ORDERED: CARBOHYDRATES FOR HYPOGLYCEMIA PO PRN (10:15)
[2020-10-27] MEDS ORDERED: GLUCOSE 10 TABS/TUBE PO PRN (10:15)
[2020-10-27] MEDS ORDERED: ALBUT/IPRATROP 3MG/0.5MG NEB 3 ML VIAL ONE (10:17)
[2020-10-27] MEDS: ALBUT/IPRATROP 3MG/0.5MG NEB 3 ML VIAL NEB PRN (10:26)
[2020-10-27] MEDS ORDERED: FOLIC ACID 1 MG in SYRINGE 9.8 ML IV SCH (10:30)
--- NOTE | 2020-10-27 11:00 | Electrocardiogram Report ---
Test Reason : Blood Pressure : / mmHG Vent. Rate : 073 BPM Atrial Rate : 057 BPM P-R Int : 000 ms QRS Dur : 094 ms QT Int : 486 ms P-R-T Axes : 000 054 235 degrees QTc Int : 535 ms Atrial fibrillation Diffuse Minor Nonspecific T wave abnormality Prolonged QT Abnormal ECG When compared with ECG of 26-OCT-2020 20:03, No significant change was found Confirmed by Mukul Salazar ([id number]) on 10/27/2020 11:00:42 AM Referred By: REFERRED SELF Confirmed By:Mukul Salazar
--- NOTE | 2020-10-27 11:02 | Cardiology Progress Note ---
Date of Service October 27, 2020 Assessment & Plan (1) Cardiac arrest: Event appears to be loss of pulse and pressure in the presence of intact rhythm likely multifactorial in etiology given multiple underlying morbidities and need for sedation. Patient does have risk factors for ischemic heart disease as well as potential tachybradycardia arrhythmias superimposed on underlying issues as below. Patient initially not anticoagulated due to multiple risk issues. Cerebrovascular embolic event not excluded as well. Recommendations: Recommend continuing IV heparin for 48-hour minimum given elevated troponins. Patient has long-term indications for chronic anticoagulation given atrial fibrillation although will need to be assessed for use Atrial fibrillation now with rapid response post warming as expected. Ultimately would like to resume beta-reji with IV metoprolol on scheduled dosing as blood pressure allows following weaning of phenylephrine. We will follow as sedation weaning regarding underlying neurologic status. Agree with initial diuresis given large volume fluid resuscitation during hypothermia protocol (2) Atrial flutter with rapid ventricular response: Currently in atrial fibrillation with rapid response rates 90-1 20 (3) Elevated troponin: (4) Obesity (BMI 30-39.9): (5) Chronic diastolic heart failure: (6) Acute on chronic renal failure: Admission and Anticipated Discharge Date Admission Date: October 23, 2020 Subjective Patient seen and examined, chart, medications, telemetry reviewed. Patient remains intubated. Hypothermia protocol completed and times being made to reduce sedation and ventilatory support this morning. He remains in atrial fibrillation with elevated ventricular response rates. Blood pressures remain labile still requiring pressor support Review of Systems Review of Systems: Unobtainable due to endotracheal tube Physical Exam Constitutional: + morbidly obese and + mechanically ventilated Eyes: + fixed pupils (Secondary to medical therapy) ENMT: Ears: no external ear abnormality Nose: no external nose abnormality Mouth: + oropharynx abnormality (Endotracheal tube in place) Neck: trachea midline, no thyromegaly + thick neck Cardiovascular: Rate/Rhythm: + tachycardic and + irregularly irregular Heart Sounds: normal S1 and normal S2; no gallop Vessels: normal carotid upstroke and radial pulses present Extremities: + edema (1-2+ with chronic indurated stasis changes) Gastrointestinal (Abdomen): Percussion/Palpation: abdomen soft Moderately distended Musculoskeletal: no cyanosis or clubbing, extremities motor strength 5/5 Skin: no rashes, warm and dry + induration (And chronic excoriation of the lower extremities) Neurologic: PERRL, EOMI, accommodation nl, no face palsy, no dysarthria Psychiatric: A+Ox3, euthymic affect Results & Data ([facility]) Vital Signs (Past 12 Hours) Vital Signs Temp Temp Pulse Resp BP BP BP 10/27/20 10:23 131 H 15 10/27/20 08:00 128 H 114/65 10/27/20 07:42 121 H 16 10/27/20 06:09 37.5 C 115 H 109/76 10/27/20 05:00 37.5 C 99 H 137/78 10/27/20 04:09 37.2 C 117 H 96/60 L 10/27/20 03:30 118 H 16 10/27/20 02:53 37.1 C 115 H 16 134/67 10/27/20 02:00 36.9 C 95 H 16 95/60 L 141/66 H 10/27/20 01:00 36.6 C 87 16 90/52 L 103/61 10/27/20 00:00 36.4 C L 96 H 16 101/64 117/53 L 10/26/20 23:19 96 H 16 Pulse Ox 10/27/20 10:23 90 10/27/20 08:00 10/27/20 07:42 97 10/27/20 06:09 100 10/27/20 05:00 100 10/27/20 04:09 93 10/27/20 03:30 93 10/27/20 02:53 93 10/27/20 02:00 94 10/27/20 01:00 96 10/27/20 00:00 96 10/26/20 23:19 97 Laboratory Results Laboratory Results - last 24 hr 10/26/20 10/26/20 10/26/20 08:57 11:33 11:56 WBC RBC Hgb 10.2 L POC Hgb Hct 30.8 L POC Hct MCV MCH MCHC RDW Std Deviation RDW Coeff of Noam Plt Count MPV Immature Gran % (Auto) Neut % (Auto) Lymph % (Auto) Garza % (Auto) Eos % (Auto) Baso % (Auto) Neut # (Auto) Lymph # (Auto) Garza # (Auto) Eos # (Auto) Baso # (Auto) Immature Gran # (Auto) Platelet Estimate APTT PTT Ratio Sample Site Art Line Art Line POC pH 7.41 7.39 POC pCO2 36 37 POC pO2 92 92 POC HCO3 23 23 POC Total CO2 24 24 POC Base Excess -2.0 -2.0 ABG pH (Temp Correct) ABG pCO2 (Temp Corrct POC ABG pO2 at Pt Temp POC ABG O2 Sat 97.0 H 97.0 H Alex Test NA NA O2 Delivery Device Ventilator Ventilator POC O2 Rate 16 16 Minute Ventilation POC FiO2 24 24 Tidal Volume 500 500 PEEP 8 8 POC Sodium Sodium POC Potassium Potassium Chloride Carbon Dioxide Anion Gap BUN Creatinine Est Cr Clr Drug Dosing Est GFR ( Amer) Est GFR (Non-Af Amer) BUN/Creatinine Ratio Glucose POC Glucose (other) Calcium Ionized Calcium Phosphorus Magnesium Total Bilirubin Direct Bilirubin AST ALT Alkaline Phosphatase Total Protein Albumin Procalcitonin 10/26/20 10/26/20 10/26/20 11:56 11:56 13:22 WBC RBC Hgb POC Hgb Hct POC Hct MCV MCH MCHC RDW Std Deviation RDW Coeff of Noam Plt Count MPV Immature Gran % (Auto) Neut % (Auto) Lymph % (Auto) Garza % (Auto) Eos % (Auto) Baso % (Auto) Neut # (Auto) Lymph # (Auto) Garza # (Auto) Eos # (Auto) Baso # (Auto) Immature Gran # (Auto) Platelet Estimate APTT 71.1 H* PTT Ratio 2.7 Sample Site POC pH POC pCO2 POC pO2 POC HCO3 POC Total CO2 POC Base Excess ABG pH (Temp Correct) ABG pCO2 (Temp Corrct POC ABG pO2 at Pt Temp POC ABG O2 Sat Alex Test O2 Delivery Device POC O2 Rate Minute Ventilation POC FiO2 Tidal Volume PEEP POC Sodium Sodium 136 POC Potassium Potassium 3.6 Chloride 104 Carbon Dioxide 26 Anion Gap 6.0 BUN 44 H Creatinine 1.61 H Est Cr Clr Drug Dosing 66.5 Est GFR ( Amer) 52.0 Est GFR (Non-Af Amer) 44.8 BUN/Creatinine Ratio 27.2 H Glucose 134 H POC Glucose (other) Calcium 7.9 L Ionized Calcium 1.07 L Phosphorus 2.9 Magnesium 2.5 H Total Bilirubin Direct Bilirubin AST ALT Alkaline Phosphatase Total Protein Albumin Procalcitonin 10/26/20 10/26/20 10/26/20 15:56 15:56 15:56 WBC RBC Hgb 10.6 L POC Hgb Hct 32.2 L POC Hct MCV MCH MCHC RDW Std Deviation RDW Coeff of Noam Plt Count MPV Immature Gran % (Auto) Neut % (Auto) Lymph % (Auto) Garza % (Auto) Eos % (Auto) Baso % (Auto) Neut # (Auto) Lymph # (Auto) Garza # (Auto) Eos # (Auto) Baso # (Auto) Immature Gran # (Auto) Platelet Estimate APTT PTT Ratio Sample Site POC pH POC pCO2 POC pO2 POC HCO3 POC Total CO2 POC Base Excess ABG pH (Temp Correct) ABG pCO2 (Temp Corrct POC ABG pO2 at Pt Temp POC ABG O2 Sat Alex Test O2 Delivery Device POC O2 Rate Minute Ventilation POC FiO2 Tidal Volume PEEP POC Sodium Sodium 136 POC Potassium Potassium 3.5 Chloride 103 Carbon Dioxide 24 Anion Gap 9.0 BUN 41 H Creatinine 1.52 H Est Cr Clr Drug Dosing 70.5 Est GFR ( Amer) 55.7 Est GFR (Non-Af Amer) 48.1 BUN/Creatinine Ratio 26.8 H Glucose 116 H POC Glucose (other) Calcium 8.1 L Ionized Calcium 1.06 L Phosphorus 2.5 Magnesium 2.3 Total Bilirubin Direct Bilirubin AST ALT Alkaline Phosphatase Total Protein Albumin Procalcitonin 10/26/20 10/26/20 10/26/20 16:02 19:40 19:45 WBC RBC Hgb 10.4 L POC Hgb 11.2 L Hct 32.1 L POC Hct 33 L MCV MCH MCHC RDW Std Deviation RDW Coeff of Noam Plt Count MPV Immature Gran % (Auto) Neut % (Auto) Lymph % (Auto) Garza % (Auto) Eos % (Auto) Baso % (Auto) Neut # (Auto) Lymph # (Auto) Garza # (Auto) Eos # (Auto) Baso # (Auto) Immature Gran # (Auto) Platelet Estimate APTT PTT Ratio Sample Site Art Line Art Line POC pH 7.38 7.40 POC pCO2 39 39 POC pO2 68 L 75 L POC HCO3 23 24 POC Total CO2 24 25 POC Base Excess -2.0 -1.0 ABG pH (Temp Correct) 7.417 ABG pCO2 (Temp Corrct 37 POC ABG pO2 at Pt Temp 68 POC ABG O2 Sat 93.0 95.0 Alex Test NA NA O2 Delivery Device Ventilator Ventilator POC O2 Rate 16 16 Minute Ventilation 8.0 POC FiO2 24 24 Tidal Volume 500 500 PEEP 8 8 POC Sodium 136 Sodium POC Potassium 3.5 Potassium Chloride Carbon Dioxide Anion Gap BUN Creatinine Est Cr Clr Drug Dosing Est GFR ( Amer) Est GFR (Non-Af Amer) BUN/Creatinine Ratio Glucose POC Glucose (other) Calcium Ionized Calcium Phosphorus Magnesium Total Bilirubin Direct Bilirubin AST ALT Alkaline Phosphatase Total Protein Albumin Procalcitonin 10/26/20 10/26/20 10/26/20 19:45 19:45 19:45 WBC RBC Hgb POC Hgb Hct POC Hct MCV MCH MCHC RDW Std Deviation RDW Coeff of Noam Plt Count MPV Immature Gran % (Auto) Neut % (Auto) Lymph % (Auto) Garza % (Auto) Eos % (Auto) Baso % (Auto) Neut # (Auto) Lymph # (Auto) Garza # (Auto) Eos # (Auto) Baso # (Auto) Immature Gran # (Auto) Platelet Estimate APTT 54.4 H* PTT Ratio 2.1 Sample Site POC pH POC pCO2 POC pO2 POC HCO3 POC Total CO2 POC Base Excess ABG pH (Temp Correct) ABG pCO2 (Temp Corrct POC ABG pO2 at Pt Temp POC ABG O2 Sat Alex Test O2 Delivery Device POC O2 Rate Minute Ventilation POC FiO2 Tidal Volume PEEP POC Sodium Sodium 136 POC Potassium Potassium 3.5 Chloride 104 Carbon Dioxide 24 Anion Gap 9.0 BUN 40 H Creatinine 1.46 H Est Cr Clr Drug Dosing 73.4 Est GFR ( Amer) 58.5 Est GFR (Non-Af Amer) 50.5 BUN/Creatinine Ratio 27.1 H Glucose 114 H POC Glucose (other) Calcium 8.1 L Ionized Calcium 1.05 L Phosphorus 2.4 L Magnesium 2.3 Total Bilirubin Direct Bilirubin AST ALT Alkaline Phosphatase Total Protein Albumin Procalcitonin 10/26/20 10/26/20 10/27/20 23:19 23:23 00:11 WBC RBC Hgb 10.6 L POC Hgb 11.9 L Hct 32.2 L POC Hct 35 L MCV MCH MCHC RDW Std Deviation RDW Coeff of Noam Plt Count MPV Immature Gran % (Auto) Neut % (Auto) Lymph % (Auto) Garza % (Auto) Eos % (Auto) Baso % (Auto) Neut # (Auto) Lymph # (Auto) Garza # (Auto) Eos # (Auto) Baso # (Auto) Immature Gran # (Auto) Platelet Estimate APTT PTT Ratio Sample Site Art Line POC pH 7.37 POC pCO2 42 POC pO2 84 POC HCO3 24 POC Total CO2 25 POC Base Excess -1.0 ABG pH (Temp Correct) 7.376 ABG pCO2 (Temp Corrct 41 POC ABG pO2 at Pt Temp 80 POC ABG O2 Sat 96.0 H Alex Test NA O2 Delivery Device Ventilator POC O2 Rate 16 Minute Ventilation 8.0 POC FiO2 30 Tidal Volume 500 PEEP 8 POC Sodium 137 Sodium POC Potassium 3.6 Potassium Chloride Carbon Dioxide Anion Gap BUN Creatinine Est Cr Clr Drug Dosing Est GFR ( Amer) Est GFR (Non-Af Amer) BUN/Creatinine Ratio Glucose POC Glucose (other) 112 H Calcium Ionized Calcium Phosphorus Magnesium Total Bilirubin Direct Bilirubin AST ALT Alkaline Phosphatase Total Protein Albumin Procalcitonin 10/27/20 10/27/20 10/27/20 00:11 00:11 03:30 WBC RBC Hgb POC Hgb 11.9 L Hct POC Hct 35 L MCV MCH MCHC RDW Std Deviation RDW Coeff of Noam Plt Count MPV Immature Gran % (Auto) Neut % (Auto) Lymph % (Auto) Garza % (Auto) Eos % (Auto) Baso % (Auto) Neut # (Auto) Lymph # (Auto) Garza # (Auto) Eos # (Auto) Baso # (Auto) Immature Gran # (Auto) Platelet Estimate APTT PTT Ratio Sample Site Art Line POC pH 7.40 POC pCO2 39 POC pO2 78 L POC HCO3 24 POC Total CO2 25 POC Base Excess -1.0 ABG pH (Temp Correct) 7.396 ABG pCO2 (Temp Corrct 39 POC ABG pO2 at Pt Temp 79 POC ABG O2 Sat 95.0 Alex Test NA O2 Delivery Device Ventilator POC O2 Rate 16 Minute Ventilation 8.0 POC FiO2 30 Tidal Volume 500 PEEP 8 POC Sodium 135 Sodium 138 POC Potassium 3.5 Potassium 3.6 Chloride 104 Carbon Dioxide 25 Anion Gap 9.0 BUN 38 H Creatinine 1.46 H Est Cr Clr Drug Dosing 73.4 Est GFR ( Amer) 58.5 Est GFR (Non-Af Amer) 50.5 BUN/Creatinine Ratio 25.7 H Glucose 110 H POC Glucose (other) Calcium 7.7 L Ionized Calcium 1.06 L Phosphorus 2.5 Magnesium 2.3 Total Bilirubin Direct Bilirubin AST ALT Alkaline Phosphatase Total Protein Albumin Procalcitonin 10/27/20 10/27/20 10/27/20 04:36 04:36 04:36 WBC 7.16 RBC 4.42 L Hgb 10.6 L POC Hgb Hct 33.3 L POC Hct MCV 75.3 L MCH 24.0 L MCHC 31.8 L RDW Std Deviation 46.6 H RDW Coeff of Noam 16.7 H Plt Count 124 L MPV 10.3 Immature Gran % (Auto) 2.0 Neut % (Auto) 74.0 Lymph % (Auto) 12.0 Garza % (Auto) 10.1 Eos % (Auto) 1.5 Baso % (Auto) 0.4 Neut # (Auto) 5.30 Lymph # (Auto) 0.86 L Garza # (Auto) 0.72 H Eos # (Auto) 0.11 Baso # (Auto) 0.03 Immature Gran # (Auto) 0.14 H Platelet Estimate Normal APTT PTT Ratio Sample Site POC pH POC pCO2 POC pO2 POC HCO3 POC Total CO2 POC Base Excess ABG pH (Temp Correct) ABG pCO2 (Temp Corrct POC ABG pO2 at Pt Temp POC ABG O2 Sat Alex Test O2 Delivery Device POC O2 Rate Minute Ventilation POC FiO2 Tidal Volume PEEP POC Sodium Sodium 139 POC Potassium Potassium 3.5 Chloride 107 Carbon Dioxide 24 Anion Gap 8.0 BUN 35 H Creatinine 1.43 H Est Cr Clr Drug Dosing 74.9 Est GFR ( Amer) 60.0 Est GFR (Non-Af Amer) 51.8 BUN/Creatinine Ratio 24.2 H Glucose 91 POC Glucose (other) Calcium 7.2 L Ionized Calcium 1.04 L Phosphorus 2.2 L Magnesium 2.2 Total Bilirubin 1.3 H Direct Bilirubin 1.0 H AST 59 H ALT 39 Alkaline Phosphatase 66 Total Protein 5.9 L Albumin 2.0 L Procalcitonin 10/27/20 10/27/20 10/27/20 04:36 04:36 07:42 WBC RBC Hgb POC Hgb 11.6 L Hct POC Hct 34 L MCV MCH MCHC RDW Std Deviation RDW Coeff of Noam Plt Count MPV Immature Gran % (Auto) Neut % (Auto) Lymph % (Auto) Garza % (Auto) Eos % (Auto) Baso % (Auto) Neut # (Auto) Lymph # (Auto) Garza # (Auto) Eos # (Auto) Baso # (Auto) Immature Gran # (Auto) Platelet Estimate APTT 40.4 H PTT Ratio 1.5 Sample Site Art Line POC pH 7.38 POC pCO2 40 POC pO2 95 POC HCO3 24 POC Total CO2 25 POC Base Excess -2.0 ABG pH (Temp Correct) 7.359 ABG pCO2 (Temp Corrct 42 POC ABG pO2 at Pt Temp 103 POC ABG O2 Sat 97.0 H Alex Test NA O2 Delivery Device Ventilator POC O2 Rate 16 Minute Ventilation POC FiO2 30 Tidal Volume 500 PEEP 5 POC Sodium 136 Sodium POC Potassium 3.8 Potassium Chloride Carbon Dioxide Anion Gap BUN Creatinine Est Cr Clr Drug Dosing Est GFR ( Amer) Est GFR (Non-Af Amer) BUN/Creatinine Ratio Glucose POC Glucose (other) Calcium Ionized Calcium Phosphorus Magnesium Total Bilirubin Direct Bilirubin AST ALT Alkaline Phosphatase Total Protein Albumin Procalcitonin 1.91 H
[2020-10-27 11:34] LABS: Partial Thromboplastin Ratio 1.7
[2020-10-27 11:34] LABS: iSTAT Arterial Blood Gas HCO3 23 meg/L (19-24); iSTAT Arterial Blood Gas pCO2 52 mmHg (35-46); iSTAT Arterial Blood Gas pH 7.26 (7.35-7.45); iSTAT Arterial Blood Gas pO2 77 mmHg (80-95); iSTAT Carbon Dioxide 25 mmol/L (24-31); iSTAT Hematocrit 37 % (42-52); iSTAT Hemoglobin 12.6 g/dl (14.0-18.0); iSTAT Potassium 4.8 mmol/L (3.3-5.0); iSTAT Sodium 135 mmol/L (135-144)
[2020-10-27] MEDS: THIAMINE HCL 200 MG in SODIUM CHLORIDE 0.9% 50 ML IV SCH ×2 (12:10→20:33)
[2020-10-27] MEDS: PANTOprazole 40 MG in SYRINGE 0 ML IV SCH (12:10)
[2020-10-27] MEDS: INSULIN ASPART 100 UNITS/ML 3 ML PEN SC SCH ×2 (12:52→17:52)
[2020-10-27 13:13] LABS: iSTAT Art Bld Gas pCO2 Correct 49 mmHg (35-46); iSTAT Art Bld Gas pH Corrected 7.297 (7.35-7.45); iSTAT Arterial Blood Gas HCO3 24 meg/L (19-24); iSTAT Arterial Blood Gas pCO2 47 mmHg (35-46); iSTAT Arterial Blood Gas pH 7.31 (7.35-7.45); iSTAT Arterial Blood Gas pO2 133 mmHg (80-95); iSTAT Arterial Blood Gas pO2 C 138; iSTAT Carbon Dioxide 25 mmol/L (24-31); iSTAT FiO2 40 %; iSTAT Hematocrit 37 % (42-52); iSTAT Hemoglobin 12.6 g/dl (14.0-18.0); iSTAT Potassium 4.5 mmol/L (3.3-5.0); iSTAT Site Art Line; iSTAT Sodium 133 mmol/L (135-144)
[2020-10-27 16:01] LABS: iSTAT Art Bld Gas pCO2 Correct 58 mmHg (35-46); iSTAT Art Bld Gas pH Corrected 7.251 (7.35-7.45); iSTAT Arterial Blood Gas HCO3 25 meg/L (19-24); iSTAT Arterial Blood Gas pCO2 57 mmHg (35-46); iSTAT Arterial Blood Gas pH 7.25 (7.35-7.45); iSTAT Arterial Blood Gas pO2 97 mmHg (80-95); iSTAT Arterial Blood Gas pO2 C 98; iSTAT Carbon Dioxide 27 mmol/L (24-31); iSTAT FiO2 30 %; iSTAT Hematocrit 37 % (42-52); iSTAT Hemoglobin 12.6 g/dl (14.0-18.0); iSTAT Potassium 4.9 mmol/L (3.3-5.0); iSTAT Site Art Line; iSTAT Sodium 134 mmol/L (135-144)
--- NOTE | 2020-10-27 16:01 | Billing Data ---
Date of Service October 27, 2020 Coding Level of Care Code 65959 Subseq Hosp Care Lvl 3
[2020-10-27 19:45] LABS: Partial Thromboplastin Ratio 1.9
[2020-10-27 19:46] LABS: Partial Thromboplastin Time 49.7 Seconds (21.0-31.0)
[2020-10-27] MEDS: NORMOSOL-R 1,000 ML IV SCH (20:20)
--- NOTE | 2020-10-27 20:33 | Hospitalist Progress Note ---
Date of Service October 27, 2020 Assessment & Plan (1) Shortness of breath: (2) Weakness: (3) Acute diastolic (congestive) heart failure: (4) Pneumonia: (5) Hypokalemia: (6) CHF (congestive heart failure): Cardiac arrest This is a 65-year-old male who presents with shortness of breath. Pt initially treated for CHF exacerbation, RLL PNA, Aflutter, poss. R foot cellulitis. Pt w/ hx of alcohol abuse (confirmed by pt and his family members), on etoh withdrawal protocol. Night of 10/24 - pt received ativan per etoh withdrawal protocol as he was found to be agitated. Soon after pt witnessed LOC and pulseless, code blue was called, CPR per nursing staff, ACLS protocol - epi x2, cardioversion for wide complex tachycardia, started on amiodarone, intubated by ER physician. Pt then in care of ICU. Underwent hypothermic protocol, now being rewarmed. Cardiac arrest Night of 10/24 - pt received ativan per etoh withdrawal protocol as he was found to be agitated. Soon after pt witnessed LOC and pulseless, code blue was called, CPR per nursing staff, ACLS protocol - epi x2, cardioversion for wide complex tachycardia, started on amiodarone, intubated by ER physician. Pt in care of ICU. Underwent hypothermic protocol. Now being rewarmed. Pt cont. to be intubated and sedated. Then was bradycardic - amiodarone was stopped as well as metoprolol Trop elevated (also some mild elevation noted on admission believed to be 2/2 CHF exacerbation, but ischemia cannot be excluded) Echo repeated - LV function preserved Cardiology following Pt now in Afib w/ RVR, BP labile, requiring pressors 1. Pt initially admitted for Shortness of breath most likely acute on chronic diastolic congestive heart failure and also right sided heart failure, Aflutter and CAP. CXR c/w with cardiomegaly pulm. congestion and airspace consolidation in R lung base Elevated troponin on admission, secondary to above Last echo 10/08/2020 -LV is normal in size. EF 60 to 65%. RV is moderately dilated. RV systolic function is moderately reduced. LA is moderately dilated. RA is moderately dilated. There is mild mitral regurg. Pulmonary hypertension is suspected and the estimated pulmonary artery systolic pressure is between 55 and 60 mmHg. ER gave one dose of iv Lasix 40mg. Continued with IV 40mg Lasix daily, stopped (10/24) d/t Cr elev. Continued PO metoprolol, now stopped d/t bradycardia as above Pt was not a candidate for anticoagulation in the past - hx of alcoholism, risk of fall, recurrent blood loss d/t varicose bleed (last one 10/08) Given elev. trop, aflutter and now cardiac arrest, risk of CVA, recommended at least transient AC and started IV heparin Telemetry reviewed (10/26) - atrial fibrillation with bradycardic response. EKGs with more pronounced T wave inversions in anterior precordial leads Echocardiogram with preserved LV systolic function Follow daily weights, I's and O's, monitor in the tele floor. Cardiology consulted, appreciate their input CT chest - negative for PE. 2. Tachycardia on admission, most likely 2/2 CHF, PNA and alcohol withdrawal. The patient was also on high dose of Lopressor in the past. Recently restarted on 12.5 b.i.d. Continued the 12.[address] him on IV Lopressor p.r.n. Monitor the heart rates and adjust medications as needed. Cardiology following. 3. CAP - CXR c/w Airspace consolidation is seen in the right lung base - procalcitonin elevated - pt started on Rocephin and doxy on admission - switched to zosyn for concern of poss. aspiration 4. Lower extremity Cellulitis? open wound on right foot. Obtained doppler - negative for DVT Obtained CT R foot - negative for osteomyelitis ESR, CRP elevated Blood cultx - pending Wound care consulted Cont. Abx as above 5. Alcoholism, alcohol withdrawal with tachycardia and hypertension. Continued with gabapentin protocol and also IV Ativan p.r.n. Continue with IV thiamine, IV folic acid. Closely monitor for withdrawal. Pt received ativan the night of 10/24, per etoh withdrawal protocol, then LOC and code blue/ cardiac arrest as above 6 Anemia. Hemoglobin is stable at 9.5, on iron supplements. We will continue. Recent hx of venous ulcer bleed. 7. Hypertension Previously was on lisinopril 20 mg and metoprolol tartrate 50 mg b.i.d. On last admission, he was discharged on metoprolol 12.5 mg b.i.d. (pt was not on any medications prior to recent admission d/t lack of insurance) Continued PO metoprolol prior to cardiac arrest. Now requiring pressor support in ICU. Cardiology following. 8. Diabetes. Last HbA1c was 5.7. We will monitor the blood sugar. 9. LAUREN, on CPAP at bedtime. Now pt intubated. 10. Psoriasis. Previously on Humira. Needs followup. 11. History of paroxysmal atrial flutter. We will monitor. Await cardiac input. As above, will start IV heparin 12. Hypomagnesemia, replaced in the ER.Follow labs DVT prophylaxis, held heparin initially given recent bleed (from venous ulcer), now started on IV heparin Admission and Anticipated Discharge Date Admission Date: October 23, 2020 Subjective Pt seen in follow up- cardiac arrest, initially admitted for shortness of breath, CHF exacerb., ?PNA, afib/aflutter. Pt continues to be sedated and intubated in ICU Hypothermia protocol completed. on pressors, off sedation (but not waking up), now in Afib w/ RVR Review of Systems Review of Systems: Unobtainable due to cognitive status and Unobtainable due to endotracheal tube Physical Exam Physical Exam: GENERAL: obese male, sedated and intubated HEENT: NC/AT, Pupils constricted NECK: No JVD, no neck masses seen. CARDIOVASCULAR: S1, S2 heard. + irregular, + tachycardia. No murmurs. RESPIRATORY SYSTEM: on mechanical vent. +Mild rhonchi, no wheezing ABDOMEN: Soft, obese, bowel sounds present NEURO: sedated EXTREMITIES: Bilateral lower extremity chronic skin changes c/w venous stasis and varicosities, open cut in the plantar aspect of the right foot near the big toe. No drainage seen. SKIN: skin changes c/w venous stasis and varicosities, + extensive psoriasis Results & Data Results & Data ([facility]) Vital Signs (Past 12 Hours) Vital Signs Temp Pulse Resp BP Pulse Ox 10/27/20 20:27 97 H 10/27/20 19:39 37.2 C 103 H 107/71 98 10/27/20 19:30 37.2 C 97 H 97 10/27/20 19:24 37.1 C 97 H 105/73 97 10/27/20 19:09 37.1 C 97 H 114/64 100 10/27/20 19:00 37.1 C 97 H 02/08/21 18:54 37.2 C 97 H 101/87 10/27/20 18:30 37.1 C 96 H 100 10/27/20 18:24 37.2 C 96 H 109/69 100 10/27/20 18:09 37.1 C 96 H 120/78 95 10/27/20 18:00 37.1 C 96 H 10/27/20 17:53 37.0 C 96 H 116/73 98 10/27/20 17:38 37.0 C 96 H 123/72 99 10/27/20 17:30 37.0 C 95 H 100 10/27/20 17:23 37.0 C 95 H 110/72 100 10/27/20 17:08 37.0 C 107 H 113/74 100 10/27/20 17:00 37.0 C 99 H 100 10/27/20 16:54 37.0 C 100 H 111/77 100 10/27/20 16:38 37.0 C 105 H 111/79 100 10/27/20 16:30 37.0 C 94 H 100 10/27/20 16:23 37.1 C 103 H 101/72 98 10/27/20 16:08 37.0 C 113 H 105/72 100 10/27/20 16:00 37.0 C 113 H 100 10/27/20 15:54 118 H 26 H 108/43 L 10/27/20 15:53 37.2 C 106 H 108/62 99 10/27/20 15:38 37.2 C 116 H 108/82 100 10/27/20 15:30 37.2 C 119 H 100 10/27/20 15:23 37.2 C 118 H 109/81 98 10/27/20 15:18 118 H 18 93 10/27/20 15:08 37.2 C 119 H 99/78 L 96 10/27/20 15:00 37.2 C 119 H 97 10/27/20 14:53 37.2 C 118 H 114/85 96 10/27/20 14:39 37.2 C 120 H 118/83 100 10/27/20 14:30 37.2 C 119 H 93 10/27/20 14:23 37.2 C 122 H 128/79 99 10/27/20 14:08 37.4 C 128 H 109/88 99 10/27/20 14:00 37.4 C 119 H 89 L 10/27/20 13:54 37.4 C 116 H 98 10/27/20 13:53 37.4 C 121 H 128/90 82 L 10/27/20 13:38 37.5 C 117 H 101/84 10/27/20 13:30 37.6 C H 116 H 10/27/20 13:24 37.6 C H 117 H 97/69 L 10/27/20 13:14 131 H 26 H 94 10/27/20 13:08 37.8 C H 105 H 90/70 L 10/27/20 13:00 37.7 C H 105 H 10/27/20 12:53 37.8 C H 105 H 106/85 10/27/20 12:39 37.9 C H 115 H 108/65 60 L 10/27/20 12:30 38.1 C H 124 H 98 10/27/20 12:25 38.1 C H 112 H 93 10/27/20 12:00 38.1 C H 105 H 165/47 H 10/27/20 11:53 37.9 C H 112 H 101/77 98 10/27/20 11:39 37.8 C H 110 H 114/66 94 10/27/20 11:30 37.6 C H 111 H 96 10/27/20 11:28 16 10/27/20 11:23 37.4 C 113 H 103/88 88 L 10/27/20 11:17 37.0 C 111 H 114/73 94 10/27/20 11:08 36.6 C 113 H 109/75 94 10/27/20 11:02 36.1 C L 115 H 98/56 L 95 10/27/20 11:00 35.8 C L 118 H 95 10/27/20 10:53 35.0 C L 116 H 81/52 L 79 L 10/27/20 10:30 36.3 C L 130 H 89 L 10/27/20 10:23 131 H 15 90 10/27/20 10:00 37.1 C 117 H 90 10/27/20 09:54 36.9 C 120 H 87/59 L 97 10/27/20 09:39 36.9 C 116 H 94/56 L 99 10/27/20 09:30 37.0 C 109 H 100 10/27/20 09:24 37.0 C 114 H 104/73 99 10/27/20 09:12 37.3 C 107 H 104/68 99 10/27/20 09:09 37.3 C 107 H 104/68 10/27/20 09:00 37.4 C 112 H 89 L 10/27/20 08:54 37.5 C 107 H 101/77 94 10/27/20 08:39 37.7 C H 114 H 84/56 L 95 Laboratory Results 10/27/20 10/27/20 10/27/20 Range/Units 19:13 17:51 15:46 WBC (4.8-10.8) K/uL RBC (4.7-6.1) M/uL Hgb (14.0-18.0) g/dL POC Hgb 12.6 L (14.0-18.0) g/dl Hct (42-52) % POC Hct 37 L (42-52) % MCV (80-100) fL MCH (25-34) pg MCHC (32-36) g/dL RDW Std Deviation (36.4-46.3) fL RDW Coeff of Noam (11.5-14.5) % Plt Count (130-400) K/uL MPV (7.4-10.4) fL Immature Gran % (Auto) % Neut % (Auto) % Lymph % (Auto) % Nicholas % (Auto) % Eos % (Auto) % Baso % (Auto) % Neut # (Auto) (1.4-6.5) K/uL Lymph # (Auto) (1.2-3.4) K/uL Nicholas # (Auto) (0.11-0.59) K/uL Eos # (Auto) (0-0.5) K/uL Baso # (Auto) (0-0.2) K/uL Immature Gran # (Auto) (0.00-0.02) K/uL Platelet Estimate (Normal) APTT 49.7 H* (21.0-31.0) Seconds PTT Ratio 1.9 Sample Site Art Line POC pH 7.25 L (7.35-7.45) POC pCO2 57 H (35-46) mmHg POC pO2 97 H (80-95) mmHg POC HCO3 25 H (19-24) suellen/L POC Total CO2 27 (24-31) mmol/L POC Base Excess -2.0 (-9-1.8) suellen/L ABG pH (Temp Correct) 7.251 L (7.35-7.45) ABG pCO2 (Temp Corrct 58 H (35-46) mmHg POC ABG pO2 at Pt Temp 98 POC ABG O2 Sat 96.0 H (90-95) % Alex Test NA O2 Delivery Device Ventilator POC O2 Rate Minute Ventilation POC FiO2 30 % Tidal Volume PEEP 8 POC Sodium 134 L (135-144) mmol/L Sodium (136-145) mmol/L POC Potassium 4.9 (3.3-5.0) mmol/L Potassium (3.5-5.1) mmol/L Chloride (98-107) mmol/L Carbon Dioxide (21-32) mmol/L Anion Gap (3-11) BUN (7-18) mg/dl Creatinine (0.6-1.4) mg/dl Est Cr Clr Drug Dosing ml/min Est GFR ( Amer) Est GFR (Non-Af Amer) BUN/Creatinine Ratio (10-20) Glucose (70-99) mg/dl POC Glucose (other) 123 H (70-99) mg/dl Calcium (8.5-10.1) mg/dl Ionized Calcium (1.12-1.32) mmol/L Phosphorus (2.5-4.9) mg/dl Magnesium (1.8-2.4) mg/dl Total Bilirubin (0.2-1) mg/dl Direct Bilirubin (0-0.2) mg/dl AST (15-37) U/L ALT (12-78) U/L Alkaline Phosphatase (45-117) U/L Total Protein (6.4-8.2) gm/dl Albumin (3.4-5.0) gm/dl Procalcitonin (0-0.5) ng/ml 10/27/20 10/27/20 10/27/20 Range/Units 12:59 12:33 11:20 WBC (4.8-10.8) K/uL RBC (4.7-6.1) M/uL Hgb (14.0-18.0) g/dL POC Hgb 12.6 L 12.6 L (14.0-18.0) g/dl Hct (42-52) % POC Hct 37 L 37 L (42-52) % MCV (80-100) fL MCH (25-34) pg MCHC (32-36) g/dL RDW Std Deviation (36.4-46.3) fL RDW Coeff of Noam (11.5-14.5) % Plt Count (130-400) K/uL MPV (7.4-10.4) fL Immature Gran % (Auto) % Neut % (Auto) % Lymph % (Auto) % Nicholas % (Auto) % Eos % (Auto) % Baso % (Auto) % Neut # (Auto) (1.4-6.5) K/uL Lymph # (Auto) (1.2-3.4) K/uL Nicholas # (Auto) (0.11-0.59) K/uL Eos # (Auto) (0-0.5) K/uL Baso # (Auto) (0-0.2) K/uL Immature Gran # (Auto) (0.00-0.02) K/uL Platelet Estimate (Normal) APTT (21.0-31.0) Seconds PTT Ratio Sample Site Art Line POC pH 7.31 L 7.26 L (7.35-7.45) POC pCO2 47 H 52 H (35-46) mmHg POC pO2 133 H 77 L (80-95) mmHg POC HCO3 24 23 (19-24) suellen/L POC Total CO2 25 25 (24-31) mmol/L POC Base Excess -3.0 -4.0 (-9-1.8) suellen/L ABG pH (Temp Correct) 7.297 L (7.35-7.45) ABG pCO2 (Temp Corrct 49 H (35-46) mmHg POC ABG pO2 at Pt Temp 138 POC ABG O2 Sat 99.0 H 93.0 (90-95) % Alex Test NA O2 Delivery Device Ventilator POC O2 Rate 20 Minute Ventilation POC FiO2 40 % Tidal Volume 580 PEEP 8 POC Sodium 133 L 135 (135-144) mmol/L Sodium (136-145) mmol/L POC Potassium 4.5 4.8 (3.3-5.0) mmol/L Potassium (3.5-5.1) mmol/L Chloride (98-107) mmol/L Carbon Dioxide (21-32) mmol/L Anion Gap (3-11) BUN (7-18) mg/dl Creatinine (0.6-1.4) mg/dl Est Cr Clr Drug Dosing ml/min Est GFR ( Amer) Est GFR (Non-Af Amer) BUN/Creatinine Ratio (10-20) Glucose (70-99) mg/dl POC Glucose (other) 102 H (70-99) mg/dl Calcium (8.5-10.1) mg/dl Ionized Calcium (1.12-1.32) mmol/L Phosphorus (2.5-4.9) mg/dl Magnesium (1.8-2.4) mg/dl Total Bilirubin (0.2-1) mg/dl Direct Bilirubin (0-0.2) mg/dl AST (15-37) U/L ALT (12-78) U/L Alkaline Phosphatase (45-117) U/L Total Protein (6.4-8.2) gm/dl Albumin (3.4-5.0) gm/dl Procalcitonin (0-0.5) ng/ml 10/27/20 10/27/20 10/27/20 Range/Units 11:13 07:42 04:36 WBC (4.8-10.8) K/uL RBC (4.7-6.1) M/uL Hgb (14.0-18.0) g/dL POC Hgb 11.6 L (14.0-18.0) g/dl Hct (42-52) % POC Hct 34 L (42-52) % MCV (80-100) fL MCH (25-34) pg MCHC (32-36) g/dL RDW Std Deviation (36.4-46.3) fL RDW Coeff of Noam (11.5-14.5) % Plt Count (130-400) K/uL MPV (7.4-10.4) fL Immature Gran % (Auto) % Neut % (Auto) % Lymph % (Auto) % Nicholas % (Auto) % Eos % (Auto) % Baso % (Auto) % Neut # (Auto) (1.4-6.5) K/uL Lymph # (Auto) (1.2-3.4) K/uL Nicholas # (Auto) (0.11-0.59) K/uL Eos # (Auto) (0-0.5) K/uL Baso # (Auto) (0-0.2) K/uL Immature Gran # (Auto) (0.00-0.02) K/uL Platelet Estimate (Normal) APTT 45.0 H (21.0-31.0) Seconds PTT Ratio 1.7 Sample Site Art Line POC pH 7.38 (7.35-7.45) POC pCO2 40 (35-46) mmHg POC pO2 95 (80-95) mmHg POC HCO3 24 (19-24) suellen/L POC Total CO2 25 (24-31) mmol/L POC Base Excess -2.0 (-9-1.8) suellen/L ABG pH (Temp Correct) 7.359 (7.35-7.45) ABG pCO2 (Temp Corrct 42 (35-46) mmHg POC ABG pO2 at Pt Temp 103 POC ABG O2 Sat 97.0 H (90-95) % Alex Test NA O2 Delivery Device Ventilator POC O2 Rate 16 Minute Ventilation POC FiO2 30 % Tidal Volume 500 PEEP 5 POC Sodium 136 (135-144) mmol/L Sodium (136-145) mmol/L POC Potassium 3.8 (3.3-5.0) mmol/L Potassium (3.5-5.1) mmol/L Chloride (98-107) mmol/L Carbon Dioxide (21-32) mmol/L Anion Gap (3-11) BUN (7-18) mg/dl Creatinine (0.6-1.4) mg/dl Est Cr Clr Drug Dosing ml/min Est GFR ( Amer) Est GFR (Non-Af Amer) BUN/Creatinine Ratio (10-20) Glucose (70-99) mg/dl POC Glucose (other) (70-99) mg/dl Calcium (8.5-10.1) mg/dl Ionized Calcium (1.12-1.32) mmol/L Phosphorus (2.5-4.9) mg/dl Magnesium (1.8-2.4) mg/dl Total Bilirubin (0.2-1) mg/dl Direct Bilirubin (0-0.2) mg/dl AST (15-37) U/L ALT (12-78) U/L Alkaline Phosphatase (45-117) U/L Total Protein (6.4-8.2) gm/dl Albumin (3.4-5.0) gm/dl Procalcitonin 1.91 H (0-0.5) ng/ml 10/27/20 10/27/20 10/27/20 Range/Units 04:36 04:36 04:36 WBC (4.8-10.8) K/uL RBC (4.7-6.1) M/uL Hgb (14.0-18.0) g/dL POC Hgb (14.0-18.0) g/dl Hct (42-52) % POC Hct (42-52) % MCV (80-100) fL MCH (25-34) pg MCHC (32-36) g/dL RDW Std Deviation (36.4-46.3) fL RDW Coeff of Noam (11.5-14.5) % Plt Count (130-400) K/uL MPV (7.4-10.4) fL Immature Gran % (Auto) % Neut % (Auto) % Lymph % (Auto) % Nicholas % (Auto) % Eos % (Auto) % Baso % (Auto) % Neut # (Auto) (1.4-6.5) K/uL Lymph # (Auto) (1.2-3.4) K/uL Nicholas # (Auto) (0.11-0.59) K/uL Eos # (Auto) (0-0.5) K/uL Baso # (Auto) (0-0.2) K/uL Immature Gran # (Auto) (0.00-0.02) K/uL Platelet Estimate (Normal) APTT 40.4 H (21.0-31.0) Seconds PTT Ratio 1.5 Sample Site POC pH (7.35-7.45) POC pCO2 (35-46) mmHg POC pO2 (80-95) mmHg POC HCO3 (19-24) suellen/L POC Total CO2 (24-31) mmol/L POC Base Excess (-9-1.8) suellen/L ABG pH (Temp Correct) (7.35-7.45) ABG pCO2 (Temp Corrct (35-46) mmHg POC ABG pO2 at Pt Temp POC ABG O2 Sat (90-95) % Alex Test O2 Delivery Device POC O2 Rate Minute Ventilation POC FiO2 % Tidal Volume PEEP POC Sodium (135-144) mmol/L Sodium 139 (136-145) mmol/L POC Potassium (3.3-5.0) mmol/L Potassium 3.5 (3.5-5.1) mmol/L Chloride 107 (98-107) mmol/L Carbon Dioxide 24 (21-32) mmol/L Anion Gap 8.0 (3-11) BUN 35 H (7-18) mg/dl Creatinine 1.43 H (0.6-1.4) mg/dl Est Cr Clr Drug Dosing 74.9 ml/min Est GFR ( Amer) 60.0 Est GFR (Non-Af Amer) 51.8 BUN/Creatinine Ratio 24.2 H (10-20) Glucose 91 (70-99) mg/dl POC Glucose (other) (70-99) mg/dl Calcium 7.2 L (8.5-10.1) mg/dl Ionized Calcium 1.04 L (1.12-1.32) mmol/L Phosphorus 2.2 L (2.5-4.9) mg/dl Magnesium 2.2 (1.8-2.4) mg/dl Total Bilirubin 1.3 H (0.2-1) mg/dl Direct Bilirubin 1.0 H (0-0.2) mg/dl AST 59 H (15-37) U/L ALT 39 (12-78) U/L Alkaline Phosphatase 66 (45-117) U/L Total Protein 5.9 L (6.4-8.2) gm/dl Albumin 2.0 L (3.4-5.0) gm/dl Procalcitonin (0-0.5) ng/ml 10/27/20 10/27/20 10/27/20 Range/Units 04:36 03:30 00:11 WBC 7.16 (4.8-10.8) K/uL RBC 4.42 L (4.7-6.1) M/uL Hgb 10.6 L (14.0-18.0) g/dL POC Hgb 11.9 L (14.0-18.0) g/dl Hct 33.3 L (42-52) % POC Hct 35 L (42-52) % MCV 75.3 L (80-100) fL MCH 24.0 L (25-34) pg MCHC 31.8 L (32-36) g/dL RDW Std Deviation 46.6 H (36.4-46.3) fL RDW Coeff of Noam 16.7 H (11.5-14.5) % Plt Count 124 L (130-400) K/uL MPV 10.3 (7.4-10.4) fL Immature Gran % (Auto) 2.0 % Neut % (Auto) 74.0 % Lymph % (Auto) 12.0 % Nicholas % (Auto) 10.1 % Eos % (Auto) 1.5 % Baso % (Auto) 0.4 % Neut # (Auto) 5.30 (1.4-6.5) K/uL Lymph # (Auto) 0.86 L (1.2-3.4) K/uL Nicholas # (Auto) 0.72 H (0.11-0.59) K/uL Eos # (Auto) 0.11 (0-0.5) K/uL Baso # (Auto) 0.03 (0-0.2) K/uL Immature Gran # (Auto) 0.14 H (0.00-0.02) K/uL Platelet Estimate Normal (Normal) APTT (21.0-31.0) Seconds PTT Ratio Sample Site Art Line POC pH 7.40 (7.35-7.45) POC pCO2 39 (35-46) mmHg POC pO2 78 L (80-95) mmHg POC HCO3 24 (19-24) suellen/L POC Total CO2 25 (24-31) mmol/L POC Base Excess -1.0 (-9-1.8) suellen/L ABG pH (Temp Correct) 7.396 (7.35-7.45) ABG pCO2 (Temp Corrct 39 (35-46) mmHg POC ABG pO2 at Pt Temp 79 POC ABG O2 Sat 95.0 (90-95) % Alex Test NA O2 Delivery Device Ventilator POC O2 Rate 16 Minute Ventilation 8.0 POC FiO2 30 % Tidal Volume 500 PEEP 8 POC Sodium 135 (135-144) mmol/L Sodium (136-145) mmol/L POC Potassium 3.5 (3.3-5.0) mmol/L Potassium (3.5-5.1) mmol/L Chloride (98-107) mmol/L Carbon Dioxide (21-32) mmol/L Anion Gap (3-11) BUN (7-18) mg/dl Creatinine (0.6-1.4) mg/dl Est Cr Clr Drug Dosing ml/min Est GFR ( Amer) Est GFR (Non-Af Amer) BUN/Creatinine Ratio (10-20) Glucose (70-99) mg/dl POC Glucose (other) (70-99) mg/dl Calcium (8.5-10.1) mg/dl Ionized Calcium 1.06 L (1.12-1.32) mmol/L Phosphorus (2.5-4.9) mg/dl Magnesium (1.8-2.4) mg/dl Total Bilirubin (0.2-1) mg/dl Direct Bilirubin (0-0.2) mg/dl AST (15-37) U/L ALT (12-78) U/L Alkaline Phosphatase (45-117) U/L Total Protein (6.4-8.2) gm/dl Albumin (3.4-5.0) gm/dl Procalcitonin (0-0.5) ng/ml 10/27/20 10/27/20 10/26/20 Range/Units 00:11 00:11 23:23 WBC (4.8-10.8) K/uL RBC (4.7-6.1) M/uL Hgb 10.6 L (14.0-18.0) g/dL POC Hgb (14.0-18.0) g/dl Hct 32.2 L (42-52) % POC Hct (42-52) % MCV (80-100) fL MCH (25-34) pg MCHC (32-36) g/dL RDW Std Deviation (36.4-46.3) fL RDW Coeff of Noam (11.5-14.5) % Plt Count (130-400) K/uL MPV (7.4-10.4) fL Immature Gran % (Auto) % Neut % (Auto) % Lymph % (Auto) % Nicholas % (Auto) % Eos % (Auto) % Baso % (Auto) % Neut # (Auto) (1.4-6.5) K/uL Lymph # (Auto) (1.2-3.4) K/uL Nicholas # (Auto) (0.11-0.59) K/uL Eos # (Auto) (0-0.5) K/uL Baso # (Auto) (0-0.2) K/uL Immature Gran # (Auto) (0.00-0.02) K/uL Platelet Estimate (Normal) APTT (21.0-31.0) Seconds PTT Ratio Sample Site POC pH (7.35-7.45) POC pCO2 (35-46) mmHg POC pO2 (80-95) mmHg POC HCO3 (19-24) suellen/L POC Total CO2 (24-31) mmol/L POC Base Excess (-9-1.8) suellen/L ABG pH (Temp Correct) (7.35-7.45) ABG pCO2 (Temp Corrct (35-46) mmHg POC ABG pO2 at Pt Temp POC ABG O2 Sat (90-95) % Alex Test O2 Delivery Device POC O2 Rate Minute Ventilation POC FiO2 % Tidal Volume PEEP POC Sodium (135-144) mmol/L Sodium 138 (136-145) mmol/L POC Potassium (3.3-5.0) mmol/L Potassium 3.6 (3.5-5.1) mmol/L Chloride 104 (98-107) mmol/L Carbon Dioxide 25 (21-32) mmol/L Anion Gap 9.0 (3-11) BUN 38 H (7-18) mg/dl Creatinine 1.46 H (0.6-1.4) mg/dl Est Cr Clr Drug Dosing 73.4 ml/min Est GFR ( Amer) 58.5 Est GFR (Non-Af Amer) 50.5 BUN/Creatinine Ratio 25.7 H (10-20) Glucose 110 H (70-99) mg/dl POC Glucose (other) 112 H (70-99) mg/dl Calcium 7.7 L (8.5-10.1) mg/dl Ionized Calcium (1.12-1.32) mmol/L Phosphorus 2.5 (2.5-4.9) mg/dl Magnesium 2.3 (1.8-2.4) mg/dl Total Bilirubin (0.2-1) mg/dl Direct Bilirubin (0-0.2) mg/dl AST (15-37) U/L ALT (12-78) U/L Alkaline Phosphatase (45-117) U/L Total Protein (6.4-8.2) gm/dl Albumin (3.4-5.0) gm/dl Procalcitonin (0-0.5) ng/ml 10/26/20 Range/Units 23:19 WBC (4.8-10.8) K/uL RBC (4.7-6.1) M/uL Hgb (14.0-18.0) g/dL POC Hgb 11.9 L (14.0-18.0) g/dl Hct (42-52) % POC Hct 35 L (42-52) % MCV (80-100) fL MCH (25-34) pg MCHC (32-36) g/dL RDW Std Deviation (36.4-46.3) fL RDW Coeff of Noam (11.5-14.5) % Plt Count (130-400) K/uL MPV (7.4-10.4) fL Immature Gran % (Auto) % Neut % (Auto) % Lymph % (Auto) % Nicholas % (Auto) % Eos % (Auto) % Baso % (Auto) % Neut # (Auto) (1.4-6.5) K/uL Lymph # (Auto) (1.2-3.4) K/uL Nicholas # (Auto) (0.11-0.59) K/uL Eos # (Auto) (0-0.5) K/uL Baso # (Auto) (0-0.2) K/uL Immature Gran # (Auto) (0.00-0.02) K/uL Platelet Estimate (Normal) APTT (21.0-31.0) Seconds PTT Ratio Sample Site Art Line POC pH 7.37 (7.35-7.45) POC pCO2 42 (35-46) mmHg POC pO2 84 (80-95) mmHg POC HCO3 24 (19-24) suellen/L POC Total CO2 25 (24-31) mmol/L POC Base Excess -1.0 (-9-1.8) suellen/L ABG pH (Temp Correct) 7.376 (7.35-7.45) ABG pCO2 (Temp Corrct 41 (35-46) mmHg POC ABG pO2 at Pt Temp 80 POC ABG O2 Sat 96.0 H (90-95) % Alex Test NA O2 Delivery Device Ventilator POC O2 Rate 16 Minute Ventilation 8.0 POC FiO2 30 % Tidal Volume 500 PEEP 8 POC Sodium 137 (135-144) mmol/L Sodium (136-145) mmol/L POC Potassium 3.6 (3.3-5.0) mmol/L Potassium (3.5-5.1) mmol/L Chloride (98-107) mmol/L Carbon Dioxide (21-32) mmol/L Anion Gap (3-11) BUN (7-18) mg/dl Creatinine (0.6-1.4) mg/dl Est Cr Clr Drug Dosing ml/min Est GFR ( Amer) Est GFR (Non-Af Amer) BUN/Creatinine Ratio (10-20) Glucose (70-99) mg/dl POC Glucose (other) (70-99) mg/dl Calcium (8.5-10.1) mg/dl Ionized Calcium (1.12-1.32) mmol/L Phosphorus (2.5-4.9) mg/dl Magnesium (1.8-2.4) mg/dl Total Bilirubin (0.2-1) mg/dl Direct Bilirubin (0-0.2) mg/dl AST (15-37) U/L ALT (12-78) U/L Alkaline Phosphatase (45-117) U/L Total Protein (6.4-8.2) gm/dl Albumin (3.4-5.0) gm/dl Procalcitonin (0-0.5) ng/ml Medications Administered Current Inpatient Medications Albuterol (Albut/Ipratrop 3mg/0.5mg Neb 3 Ml Vial) 3 ml NEB Q4R PRN PRN Reason: Shortness Of Breath Or Wheezing Stop: 11/26/20 10:59 Last Admin: 10/27/20 10:26 Dose: 3 ml Documented by: Dextrose (Dextrose 50% 50 Ml Syringe) 25 - 50 ml IV UD PRN; Protocol PRN Reason: Hypoglycemia Protocol Stop: 11/26/20 10:14 Fentanyl Citrate (Fentanyl Bolus From Bag) 50 mcg IV Q60M PRN PRN Reason: Pain or Agitation Stop: 11/07/20 22:29 Last Admin: 10/27/20 05:59 Dose: 50 mcg Documented by: Glucagon (Glucagon For Inj 1 Mg Vial) 1 mg IM UD PRN; Protocol PRN Reason: Hypoglycemia Protocol Stop: 11/26/20 10:14 Glucose (Glucose 40% Gel 15 Gm Tube) 15 - 30 gm PO UD PRN; Protocol PRN Reason: Hypoglycemia Protocol Stop: 11/26/20 10:14 Glucose (Glucose 10 Tabs/Tube) 4 - 8 tabs PO UD PRN; Protocol PRN Reason: Hypoglycemia Protocol Stop: 11/26/20 10:14 Lorazepam (Ativan) 1 mg in 2 mls @ 2 mls/min IV UD PRN; Protocol PRN Reason: EtOH Withdrawl AWSS Score 6,7 Stop: 11/22/20 01:12 Folic Acid 1 mg/ Syringe 10 mls @ 5 mls/min IV QAM BALBINA Stop: 11/22/20 08:59 Last Admin: 10/27/20 07:31 Dose: 5 mls/min Documented by: Lorazepam (Ativan) 2 mg in 4 mls @ 4 mls/min IV UD PRN; Protocol PRN Reason: EtOH Withdrawl AWSS Score 8,9 Stop: 11/22/20 01:12 Last Admin: 10/24/20 21:21 Dose: 4 mls/min Documented by: Lorazepam (Ativan) 3 mg in 6 mls @ 4 mls/min IV ONCE PRN; Protocol PRN Reason: EtOH Withdrawl AWSS Score >=10 Stop: 11/22/20 01:12 Doxycycline Hyclate 100 mg/ (Dextrose) 110 mls @ 50 mls/hr IV Q12H BALBINA Stop: 10/30/20 08:59 Last Infusion: 10/27/20 09:54 Dose: Infused Documented by: Furosemide 40 mg/ Syringe 4 mls @ 4 mls/min IV DAILY BALBINA Stop: 11/22/20 08:59 Last Admin: 10/23/20 08:36 Dose: 4 mls/min Documented by: Piperacillin Sod/Tazobactam (Sod 4.5 gm/ Dextrose) 120 mls @ 30 mls/hr IV Q8H BALBINA; Protocol Stop: 10/31/20 00:00 Last Infusion: 10/27/20 20:22 Dose: Infused Documented by: Midazolam HCl (Versed) 125 mg in 250 mls @ 0 mls/hr IV .Q0M PRN; Protocol PRN Reason: Agitation Stop: 11/23/20 22:29 Last Titration: 10/27/20 16:23 Dose: Infused Documented by: Fentanyl Citrate (Fentanyl Drip) 1,250 mcg in 250 mls @ 0 mls/hr IV .Q0M [facility]; Protocol Stop: 11/07/20 22:29 Last Admin: 10/27/20 20:18 Dose: Not Given Documented by: Norepinephrine Bitartrate (Levophed/D5w) 8 mg in 508 mls @ 23.089 mls/hr IV .Q22H1M [facility]; Protocol Stop: 11/23/20 23:44 Last Admin: 10/27/20 19:32 Dose: 0.08 mcg/kg/min, 36.9 mls/hr Documented by: Pantoprazole Sodium 40 mg/ (Syringe) 10 mls @ 5 mls/min IV DAILY@1100 [facility] Stop: 11/24/20 10:59 Last Admin: 10/27/20 12:10 Dose: 5 mls/min Documented by: Heparin Sodium/Dextrose (Heparin Sodium/Dextrose) 25,000 units in 500 mls @ 27 mls/hr IV .[id number] [facility]; Protocol Stop: 11/24/20 13:29 Last Admin: 10/27/20 20:23 Dose: Not Given Documented by: Acetaminophen (Ofirmev) 1,000 mg in 100 mls @ 400 mls/hr IV Q8H PRN PRN Reason: Fever Stop: 10/30/20 09:26 Thiamine HCl 200 mg/ Sodium (Chloride) 52 mls @ 208 mls/hr IV BID [facility] Stop: 11/26/20 10:59 Last Infusion: 10/27/20 13:12 Dose: Infused Documented by: Insulin Aspart (Insulin Aspart 100 Units/Ml 3 Ml Pen) 0 units SC Q6 [facility] Stop: 11/26/20 11:59 Last Admin: 10/27/20 17:52 Dose: Not Given Documented by: Metoprolol Tartrate (Metoprolol Tartrate 1 Mg/Ml Vial) 5 mg IV Q6 PRN PRN Reason: Hypertension Stop: 11/22/20 01:12 Midazolam HCl (Midazolam Bolus From Bag) 2 mg IV Q60M PRN PRN Reason: Sedation Stop: 11/23/20 22:29 Miscellaneous (Carbohydrates For Hypoglycemia ) 15 - 30 gm PO UD PRN PRN Reason: Hypoglycemia Treatment Stop: 11/26/20 10:14 Miscellaneous Information (Piperacill/Tazobac Consult Active) 1 ea N/A UD PRN PRN Reason: Consult Stop: 11/22/20 18:26 Nitroglycerin (Nitroglycerin Sl 0.4 Mg/Tab Tab) 0.4 mg SL UD PRN PRN Reason: Chest Pain Stop: 11/22/20 01:12 Nutritional Formula (Peptamen Intense Vhp 1.0 Blaze 1,000 Ml Bag) 1,000 ml OG UD [facility]; Protocol Stop: 11/25/20 11:44 Last Admin: 10/26/20 13:24 Dose: 1,000 ml Documented by: (1) Pneumonia Laterality: right Lung location: lower lobe of lung Pneumonia type: due to unspecified organism Qualified Code(s): J18.9 - Pneumonia, unspecified organism
[2020-10-27] MEDS: ACETAMINOPHEN 1,000 MG/100 ML VIAL IV PRN (22:05)
[2020-10-28] MEDS: PIPERACILLIN/TAZOBACTAM 4.5 GM in DEXTROSE 5% 100 ML IV SCH ×2 (00:52→08:02)
[2020-10-28] MEDS: INSULIN ASPART 100 UNITS/ML 3 ML PEN SC SCH ×4 (00:54→18:08)
[2020-10-28 03:27] LABS: iSTAT Art Bld Gas pCO2 Correct 30 mmHg (35-46); iSTAT Art Bld Gas pH Corrected 7.487 (7.35-7.45); iSTAT Arterial Blood Gas HCO3 23 meg/L (19-24); iSTAT Arterial Blood Gas pCO2 29 mmHg (35-46); iSTAT Arterial Blood Gas pO2 97 mmHg (80-95); iSTAT Arterial Blood Gas pO2 C 101; iSTAT Carbon Dioxide 23 mmol/L (24-31); iSTAT Hematocrit 30 % (42-52); iSTAT Hemoglobin 10.2 g/dl (14.0-18.0); iSTAT Potassium 3.5 mmol/L (3.3-5.0); iSTAT Site Art Line; iSTAT Sodium 134 mmol/L (135-144)
[2020-10-28 05:32] LABS: Hematocrit (blood only) 28.4 % (42-52); Hemoglobin 9.1 g/dL (14.0-18.0); Mean Corpuscular Hemoglobin 23.7 pg (25-34); RDW Coefficient of Variation 16.9 % (11.5-14.5); RDW Standard Deviation 46.1 fL (36.4-46.3); Red Blood Count 3.84 M/uL (4.7-6.1); White Blood Count 8.98 K/uL (4.8-10.8)
[2020-10-28 05:46] LABS: BUN Creatinine Ratio 19.1 (10-20); Calcium 7.9 mg/dl (8.5-10.1); Creatinine Clr Calc Pharmacy 56.1 ml/min; Est GFR (African American) 41.2; Est GFR (Non-African American) 35.6; Potassium 3.4 mmol/L (3.5-5.1)
[2020-10-28 05:47] LABS: Phosphorus 2.6 mg/dl (2.5-4.9)
[2020-10-28 05:49] LABS: Basophils # (auto) 0.03 K/uL (0-0.2); Basophils % (auto) 0.3 %; Eosinophils # (auto) 0.05 K/uL (0-0.5); Eosinophils % (auto) 0.6 %; Hypochromasia Present; Immature Granulocytes # (auto) 0.07 K/uL (0.00-0.02); Immature Granulocytes % (auto) 0.8 %; Lymphocytes # (auto) 1.07 K/uL (1.2-3.4); Lymphocytes % (auto) 11.9 %; Mean Platelet Volume 11.1 fL (7.4-10.4); Monocytes # (auto) 1.04 K/uL (0.11-0.59); Monocytes % (auto) 11.6 %; Neutrophils # (auto) 6.72 K/uL (1.4-6.5); Neutrophils % (auto) 74.8 %; Platelet Count 135 K/uL (130-400); Platelet Estimate Decreased (Normal); Tear Drop Cells 1+
[2020-10-28 05:51] LABS: Partial Thromboplastin Ratio 1.8
[2020-10-28] MEDS ORDERED: POTASSIUM CHLORIDE CRTAB 20 MEQ TABCR PO STA (05:56)
[2020-10-28 06:01] LABS: Partial Thromboplastin Time 47.7 Seconds (21.0-31.0)
[2020-10-28] MEDS ORDERED: POTASSIUM CHLORIDE / WTR 20 MEQ/100 ML PLCT IV ONE (06:15)
--- NOTE | 2020-10-28 07:53 | Critical Care Progress Note ---
Date of Service October 28, 2020 Assessment & Plan (1) Cardiac arrest: Reason critically ill: 65-year-old male status post in-hospital cardiac arrest with ROSC requiring close hemodynamic monitoring, now completed rewarming protocol and awaiting further delineation of extent of potential neurologic insult from arrest. Neuro: -[facility]: Unable to assess -Alcohol abuse: -Will consider re-addition of alcohol withdrawal scale and Ativan based off of patient's symptoms -CT head demonstrating no acute intracranial abnormality -EEG demonstrating severe background suppression consistent with severe nonspecific encephalopathy -Now greater than 72-hour out from cardiac arrest -Continue to monitor for purposeful movements as patient further clears timeframe from sedation -Started soft upper limb restraints based off of nonpurposeful movements inability to follow directions Cardiac/Vascular: -In-hospital cardiac arrest with ROSC -Estimated downtime approximately 10 minutes -Completed TTM and rewarming protocol -A. fib with RVR -Metoprolol tartrate 5 mg q4h PRN tachycardia greater than 100 -Cardiology consulted -Continue heparin at this time -Echo demonstrated EF 60 to 65%, midseptal dyssynergy, no regional wall abnormalities -CXR this AM demonstrating improvement in bilateral lower lobes with decrease in pleural effusion -Weaned off vasopressors this afternoon with appropriate maintenance of maps Respiratory: -Respiratory failure -Secondary to cardiac arrest, intubated during code -wean off ventilator as tolerated GI/Nutrition: -Restart Peptamen -GI PPx: Protonix -Consideration of Reglan if abdominal distention becomes concerned with tube feeds Renal/Lytes: -Acute kidney injury superimposed on chronic kidney disease -discontinue IV Normosol@80 mL/hr -Electrolyte abnormalities -K 3.4 this AM, Phos 2.6 this a.m.; repleted with KCl -Continue to monitor daily and replete electrolytes as indicated : -Brock in place -Continue to monitor strict I's and O's ENDO: -History of type 2 diabetes -Continue management per ICU glycemic protocol -Sliding scale insulin available Skin: -Patient with psoriatic appearing plaques over bilateral lower extremities -No known history of medication usage for this -Trial of betamethasone cream BID HEME: -Hgb stable at 9.1 this a.m. -No clear source for acute blood loss at this time -Continue to monitor ID: -Hold antibiotics at this time in the setting of no demonstrated source of infection -Blood cultures x4 with no growth to date -Sputum culture with only rare gram-positive bacilli demonstrated, awaiting final results -Procal 1.28 today, downtrending from admission Lines/IV Access: -PIV x3 -removal of right IJ/cooling catheter following -Consideration of PICC if further requiring vasopressors DVT Prophylaxis: -continue systemic heparin (2) Respiratory failure: (3) Acute on chronic renal failure: (4) Chronic diastolic heart failure: (5) Acute diastolic (congestive) heart failure: (6) Pneumonia: (7) Shortness of breath: (8) Depression: (9) Alcohol abuse: Admission and Anticipated Discharge Date Admission Date: October 23, 2020 Supervising Physician Co-Signing Physician Notes Patient seen and examined. Discussed with bedside critical care nurse as well as with family practice resident. Patient was reviewed on multidisciplinary rounds. Agree with assessment and plan as noted. Continue to await improvement in the patient's mental status. He is intermittently tolerating trials of spontaneous breathing on the ventilator. His neurological status would still preclude extubation at this point time. We will discontinue the cooling catheter. He is received appropriate course of antibiotics and these will be discontinued. Continue tube feeding until we are able to adequately assess the patient for extubation. The patient's son was updated on the phone. We did briefly discuss long-term options including tracheostomy and PEG tube placement in the event the patient's neurological status should fail to improve. Will use some topical creams for his significant psoriasis. Additional recommendations will be based on patient's neurological response. We will continue to wean pressors as tolerated Subjective Patient had no fevers overnight and was successfully able to be maintained off of cooling catheter. Throughout the day had weaning of Levophed prior to being stopped at approximately 1 PM. Does have more response to verbal stimuli but no purposeful movements at this time, moving all extremities spontaneously. Attempt to wean off ventilator resulted in quick desaturations to 70s. Review of Systems Review of Systems: Unobtainable due to endotracheal tube and Unobtainable due to reduced consciousness Physical Exam Constitutional: + obese and + disheveled Eyes: + anicteric sclerae; no scleral abnormality and no corneal abnormality Respiratory: symmetric chest movement; + abnormal respiratory effort Auscultation: no rales, no rhonchi and no wheezes Cardiovascular: Heart Sounds: no gallop, no murmur and no cardiac rub Vessels: no JVD Extremities: + edema Gastrointestinal (Abdomen): Inspection/Auscultation: abdomen normal to inspection and normal bowel sounds; abdomen not distended and no abdominal edema Skin: Chronic appearing venous stasis changes to bilateral lower extremities, psoriatic plaques on extensor surfaces bilaterally Neurologic: Patient awakens to verbal and tactile stimuli, moves all 4 extremities spontaneously, no eye contact, moving around in bed nonpurposefully, does not follow commands. Psychiatric: Orientation: + not alert Apperance: + disheveled Results & Data Results & Data ([facility]) Vital Signs (Past 12 Hours) Vital Signs Temp Pulse Resp BP Pulse Ox 10/28/20 07:27 97 H 22 100 10/28/20 06:24 37.6 C H 97 H 132/85 99 10/28/20 06:09 37.7 C H 97 H 130/77 99 10/28/20 05:09 37.7 C H 97 H 129/76 99 10/28/20 04:09 37.8 C H 97 H 121/73 98 10/28/20 03:39 37.8 C H 97 H 121/73 99 10/28/20 03:30 37.8 C H 97 H 99 10/28/20 03:24 37.8 C H 97 H 121/71 100 10/28/20 03:15 97 H 22 95 10/28/20 03:09 37.8 C H 97 H 134/76 94 10/28/20 03:00 37.8 C H 97 H 99 10/28/20 02:54 37.8 C H 97 H 114/82 99 10/28/20 02:39 37.8 C H 97 H 149/80 H 98 10/28/20 02:30 37.7 C H 98 H 94 10/28/20 02:24 37.8 C H 97 H 140/84 99 10/28/20 02:09 37.7 C H 97 H 131/76 99 10/28/20 02:00 37.8 C H 97 H 98 10/28/20 01:54 37.7 C H 100 H 131/84 98 10/28/20 01:30 37.7 C H 97 H 99 10/28/20 01:24 37.7 C H 97 H 120/104 H 94 10/28/20 01:09 37.7 C H 97 H 148/85 H 99 10/28/20 01:00 37.7 C H 97 H 99 10/28/20 00:54 37.7 C H 97 H 158/84 H 99 10/28/20 00:39 37.7 C H 97 H 146/79 H 99 10/28/20 00:30 37.7 C H 97 H 99 10/28/20 00:24 37.7 C H 96 H 148/82 H 99 10/28/20 00:09 37.7 C H 96 H 154/85 H 98 10/28/20 00:00 37.7 C H 96 H 99 10/27/20 23:54 37.7 C H 96 H 145/89 H 98 10/27/20 23:39 37.7 C H 96 H 150/87 H 98 10/27/20 23:30 37.8 C H 96 H 98 10/27/20 23:25 96 H 10/27/20 23:24 37.8 C H 96 H 25 H 147/77 H 99 10/27/20 23:09 37.9 C H 96 H 135/79 98 10/27/20 23:00 38.0 C H 96 H 99 10/27/20 22:54 38.0 C H 100 H 127/70 91 10/27/20 22:40 37.9 C H 98 H 97 10/27/20 22:39 37.9 C H 98 H 114/67 97 10/27/20 22:00 37.7 C H 97 H 98 10/27/20 21:09 37.7 C H 97 H 117/71 99 10/27/20 21:00 37.6 C H 97 H 99 10/27/20 20:54 37.6 C H 97 H 118/65 99 10/27/20 20:39 37.6 C H 97 H 110/68 99 10/27/20 20:27 97 H 10/27/20 20:10 37.4 C 97 H 99 10/27/20 20:09 37.4 C 97 H 113/69 99 Laboratory Results 10/28/20 10/28/20 10/28/20 Range/Units 10:05 08:10 05:46 WBC (4.8-10.8) K/uL RBC (4.7-6.1) M/uL Hgb (14.0-18.0) g/dL POC Hgb 9.9 L (14.0-18.0) g/dl Hct (42-52) % POC Hct 29 L (42-52) % MCV (80-100) fL MCH (25-34) pg MCHC (32-36) g/dL RDW Std Deviation (36.4-46.3) fL RDW Coeff of Noam (11.5-14.5) % Plt Count (130-400) K/uL MPV (7.4-10.4) fL Immature Gran % (Auto) % Neut % (Auto) % Lymph % (Auto) % Scurry % (Auto) % Eos % (Auto) % Baso % (Auto) % Neut # (Auto) (1.4-6.5) K/uL Lymph # (Auto) (1.2-3.4) K/uL Scurry # (Auto) (0.11-0.59) K/uL Eos # (Auto) (0-0.5) K/uL Baso # (Auto) (0-0.2) K/uL Immature Gran # (Auto) (0.00-0.02) K/uL Platelet Estimate (Normal) Hypochromasia Tear Drop Cells APTT (21.0-31.0) Seconds PTT Ratio Sample Site Art Line POC pH 7.44 (7.35-7.45) POC pCO2 34 L (35-46) mmHg POC pO2 115 H (80-95) mmHg POC HCO3 23 (19-24) suellen/L POC Total CO2 24 (24-31) mmol/L POC Base Excess -1.0 (-9-1.8) suellen/L ABG pH (Temp Correct) 7.434 (7.35-7.45) ABG pCO2 (Temp Corrct 35 (35-46) mmHg POC ABG pO2 at Pt Temp 118 POC ABG O2 Sat 99.0 H (90-95) % Alex Test NA O2 Delivery Device Ventilator POC O2 Rate 20 Minute Ventilation 10.3 POC FiO2 % Tidal Volume 500 PEEP 8 POC Sodium 135 (135-144) mmol/L Sodium (136-145) mmol/L POC Potassium 3.6 (3.3-5.0) mmol/L Potassium (3.5-5.1) mmol/L Chloride (98-107) mmol/L Carbon Dioxide (21-32) mmol/L Anion Gap (3-11) BUN (7-18) mg/dl Creatinine (0.6-1.4) mg/dl Est Cr Clr Drug Dosing ml/min Est GFR ( Amer) Est GFR (Non-Af Amer) BUN/Creatinine Ratio (10-20) Glucose (70-99) mg/dl POC Glucose (other) 128 H (70-99) mg/dl Calcium (8.5-10.1) mg/dl Phosphorus (2.5-4.9) mg/dl Magnesium (1.8-2.4) mg/dl Procalcitonin 1.28 H (0-0.5) ng/ml 10/28/20 10/28/20 10/28/20 Range/Units 04:43 04:43 04:43 WBC 8.98 (4.8-10.8) K/uL RBC 3.84 L (4.7-6.1) M/uL Hgb 9.1 L (14.0-18.0) g/dL POC Hgb (14.0-18.0) g/dl Hct 28.4 L (42-52) % POC Hct (42-52) % MCV 74.0 L (80-100) fL MCH 23.7 L (25-34) pg MCHC 32.0 (32-36) g/dL RDW Std Deviation 46.1 (36.4-46.3) fL RDW Coeff of Noam 16.9 H (11.5-14.5) % Plt Count 135 (130-400) K/uL MPV 11.1 H (7.4-10.4) fL Immature Gran % (Auto) 0.8 % Neut % (Auto) 74.8 % Lymph % (Auto) 11.9 % Scurry % (Auto) 11.6 % Eos % (Auto) 0.6 % Baso % (Auto) 0.3 % Neut # (Auto) 6.72 H (1.4-6.5) K/uL Lymph # (Auto) 1.07 L (1.2-3.4) K/uL Scurry # (Auto) 1.04 H (0.11-0.59) K/uL Eos # (Auto) 0.05 (0-0.5) K/uL Baso # (Auto) 0.03 (0-0.2) K/uL Immature Gran # (Auto) 0.07 H (0.00-0.02) K/uL Platelet Estimate Decreased L (Normal) Hypochromasia Present Tear Drop Cells 1+ APTT 47.7 H* (21.0-31.0) Seconds PTT Ratio 1.8 Sample Site POC pH (7.35-7.45) POC pCO2 (35-46) mmHg POC pO2 (80-95) mmHg POC HCO3 (19-24) suellen/L POC Total CO2 (24-31) mmol/L POC Base Excess (-9-1.8) suellen/L ABG pH (Temp Correct) (7.35-7.45) ABG pCO2 (Temp Corrct (35-46) mmHg POC ABG pO2 at Pt Temp POC ABG O2 Sat (90-95) % Alex Test O2 Delivery Device POC O2 Rate Minute Ventilation POC FiO2 % Tidal Volume PEEP POC Sodium (135-144) mmol/L Sodium 137 (136-145) mmol/L POC Potassium (3.3-5.0) mmol/L Potassium 3.4 L (3.5-5.1) mmol/L Chloride 104 (98-107) mmol/L Carbon Dioxide 24 (21-32) mmol/L Anion Gap 9.0 (3-11) BUN 37 H (7-18) mg/dl Creatinine 1.95 H D (0.6-1.4) mg/dl Est Cr Clr Drug Dosing 56.1 ml/min Est GFR ( Amer) 41.2 Est GFR (Non-Af Amer) 35.6 BUN/Creatinine Ratio 19.1 (10-20) Glucose 124 H (70-99) mg/dl POC Glucose (other) (70-99) mg/dl Calcium 7.9 L (8.5-10.1) mg/dl Phosphorus 2.6 (2.5-4.9) mg/dl Magnesium 2.0 (1.8-2.4) mg/dl Procalcitonin (0-0.5) ng/ml 10/28/20 10/28/20 10/27/20 Range/Units 03:08 00:52 19:13 WBC (4.8-10.8) K/uL RBC (4.7-6.1) M/uL Hgb (14.0-18.0) g/dL POC Hgb 10.2 L (14.0-18.0) g/dl Hct (42-52) % POC Hct 30 L (42-52) % MCV (80-100) fL MCH (25-34) pg MCHC (32-36) g/dL RDW Std Deviation (36.4-46.3) fL RDW Coeff of Noam (11.5-14.5) % Plt Count (130-400) K/uL MPV (7.4-10.4) fL Immature Gran % (Auto) % Neut % (Auto) % Lymph % (Auto) % Scurry % (Auto) % Eos % (Auto) % Baso % (Auto) % Neut # (Auto) (1.4-6.5) K/uL Lymph # (Auto) (1.2-3.4) K/uL Scurry # (Auto) (0.11-0.59) K/uL Eos # (Auto) (0-0.5) K/uL Baso # (Auto) (0-0.2) K/uL Immature Gran # (Auto) (0.00-0.02) K/uL Platelet Estimate (Normal) Hypochromasia Tear Drop Cells APTT 49.7 H* (21.0-31.0) Seconds PTT Ratio 1.9 Sample Site Art Line POC pH 7.50 H (7.35-7.45) POC pCO2 29 L (35-46) mmHg POC pO2 97 H (80-95) mmHg POC HCO3 23 (19-24) suellen/L POC Total CO2 23 L (24-31) mmol/L POC Base Excess -1.0 (-9-1.8) suellen/L ABG pH (Temp Correct) 7.487 H (7.35-7.45) ABG pCO2 (Temp Corrct 30 L (35-46) mmHg POC ABG pO2 at Pt Temp 101 POC ABG O2 Sat 98.0 H (90-95) % Alex Test NA O2 Delivery Device Ventilator POC O2 Rate 25 Minute Ventilation POC FiO2 % Tidal Volume 500 PEEP 8 POC Sodium 134 L (135-144) mmol/L Sodium (136-145) mmol/L POC Potassium 3.5 (3.3-5.0) mmol/L Potassium (3.5-5.1) mmol/L Chloride (98-107) mmol/L Carbon Dioxide (21-32) mmol/L Anion Gap (3-11) BUN (7-18) mg/dl Creatinine (0.6-1.4) mg/dl Est Cr Clr Drug Dosing ml/min Est GFR ( Amer) Est GFR (Non-Af Amer) BUN/Creatinine Ratio (10-20) Glucose (70-99) mg/dl POC Glucose (other) 134 H (70-99) mg/dl Calcium (8.5-10.1) mg/dl Phosphorus (2.5-4.9) mg/dl Magnesium (1.8-2.4) mg/dl Procalcitonin (0-0.5) ng/ml 10/27/20 10/27/20 10/27/20 Range/Units 17:51 15:46 12:59 WBC (4.8-10.8) K/uL RBC (4.7-6.1) M/uL Hgb (14.0-18.0) g/dL POC Hgb 12.6 L 12.6 L (14.0-18.0) g/dl Hct (42-52) % POC Hct 37 L 37 L (42-52) % MCV (80-100) fL MCH (25-34) pg MCHC (32-36) g/dL RDW Std Deviation (36.4-46.3) fL RDW Coeff of Noam (11.5-14.5) % Plt Count (130-400) K/uL MPV (7.4-10.4) fL Immature Gran % (Auto) % Neut % (Auto) % Lymph % (Auto) % Scurry % (Auto) % Eos % (Auto) % Baso % (Auto) % Neut # (Auto) (1.4-6.5) K/uL Lymph # (Auto) (1.2-3.4) K/uL Scurry # (Auto) (0.11-0.59) K/uL Eos # (Auto) (0-0.5) K/uL Baso # (Auto) (0-0.2) K/uL Immature Gran # (Auto) (0.00-0.02) K/uL Platelet Estimate (Normal) Hypochromasia Tear Drop Cells APTT (21.0-31.0) Seconds PTT Ratio Sample Site Art Line Art Line POC pH 7.25 L 7.31 L (7.35-7.45) POC pCO2 57 H 47 H (35-46) mmHg POC pO2 97 H 133 H (80-95) mmHg POC HCO3 25 H 24 (19-24) suellen/L POC Total CO2 27 25 (24-31) mmol/L POC Base Excess -2.0 -3.0 (-9-1.8) suellen/L ABG pH (Temp Correct) 7.251 L 7.297 L (7.35-7.45) ABG pCO2 (Temp Corrct 58 H 49 H (35-46) mmHg POC ABG pO2 at Pt Temp 98 138 POC ABG O2 Sat 96.0 H 99.0 H (90-95) % Alex Test NA NA O2 Delivery Device Ventilator Ventilator POC O2 Rate 20 Minute Ventilation POC FiO2 30 40 % Tidal Volume 580 PEEP 8 8 POC Sodium 134 L 133 L (135-144) mmol/L Sodium (136-145) mmol/L POC Potassium 4.9 4.5 (3.3-5.0) mmol/L Potassium (3.5-5.1) mmol/L Chloride (98-107) mmol/L Carbon Dioxide (21-32) mmol/L Anion Gap (3-11) BUN (7-18) mg/dl Creatinine (0.6-1.4) mg/dl Est Cr Clr Drug Dosing ml/min Est GFR ( Amer) Est GFR (Non-Af Amer) BUN/Creatinine Ratio (10-20) Glucose (70-99) mg/dl POC Glucose (other) 123 H (70-99) mg/dl Calcium (8.5-10.1) mg/dl Phosphorus (2.5-4.9) mg/dl Magnesium (1.8-2.4) mg/dl Procalcitonin (0-0.5) ng/ml 10/27/20 10/27/20 10/27/20 Range/Units 12:33 11:20 11:13 WBC (4.8-10.8) K/uL RBC (4.7-6.1) M/uL Hgb (14.0-18.0) g/dL POC Hgb 12.6 L (14.0-18.0) g/dl Hct (42-52) % POC Hct 37 L (42-52) % MCV (80-100) fL MCH (25-34) pg MCHC (32-36) g/dL RDW Std Deviation (36.4-46.3) fL RDW Coeff of Noam (11.5-14.5) % Plt Count (130-400) K/uL MPV (7.4-10.4) fL Immature Gran % (Auto) % Neut % (Auto) % Lymph % (Auto) % Scurry % (Auto) % Eos % (Auto) % Baso % (Auto) % Neut # (Auto) (1.4-6.5) K/uL Lymph # (Auto) (1.2-3.4) K/uL Scurry # (Auto) (0.11-0.59) K/uL Eos # (Auto) (0-0.5) K/uL Baso # (Auto) (0-0.2) K/uL Immature Gran # (Auto) (0.00-0.02) K/uL Platelet Estimate (Normal) Hypochromasia Tear Drop Cells APTT 45.0 H (21.0-31.0) Seconds PTT Ratio 1.7 Sample Site POC pH 7.26 L (7.35-7.45) POC pCO2 52 H (35-46) mmHg POC pO2 77 L (80-95) mmHg POC HCO3 23 (19-24) suellen/L POC Total CO2 25 (24-31) mmol/L POC Base Excess -4.0 (-9-1.8) suellen/L ABG pH (Temp Correct) (7.35-7.45) ABG pCO2 (Temp Corrct (35-46) mmHg POC ABG pO2 at Pt Temp POC ABG O2 Sat 93.0 (90-95) % Alex Test O2 Delivery Device POC O2 Rate Minute Ventilation POC FiO2 % Tidal Volume PEEP POC Sodium 135 (135-144) mmol/L Sodium (136-145) mmol/L POC Potassium 4.8 (3.3-5.0) mmol/L Potassium (3.5-5.1) mmol/L Chloride (98-107) mmol/L Carbon Dioxide (21-32) mmol/L Anion Gap (3-11) BUN (7-18) mg/dl Creatinine (0.6-1.4) mg/dl Est Cr Clr Drug Dosing ml/min Est GFR ( Amer) Est GFR (Non-Af Amer) BUN/Creatinine Ratio (10-20) Glucose (70-99) mg/dl POC Glucose (other) 102 H (70-99) mg/dl Calcium (8.5-10.1) mg/dl Phosphorus (2.5-4.9) mg/dl Magnesium (1.8-2.4) mg/dl Procalcitonin (0-0.5) ng/ml Medications Administered Current Inpatient Medications Albuterol (Albut/Ipratrop 3mg/0.5mg Neb 3 Ml Vial) 3 ml NEB Q4R PRN PRN Reason: Shortness Of Breath Or Wheezing Stop: 11/26/20 10:59 Last Admin: 10/27/20 10:26 Dose: 3 ml Documented by: Betamethasone Dipropion Augmented (Betamethasone Dip Aug (Diprolene) 0.05% Cr 15 Gm Tube) 1 appln EXT BID [facility] Stop: 11/25/20 10:59 Calcium Carbonate (Calcium Carbonate 1,250 Mg/5 Ml Udc) 1,250 mg PO BID [facility] Stop: 11/27/20 08:59 Last Admin: 10/28/20 08:02 Dose: 1,250 mg Documented by: Dextrose (Dextrose 50% 50 Ml Syringe) 25 - 50 ml IV UD PRN; Protocol PRN Reason: Hypoglycemia Protocol Stop: 11/26/20 10:14 Glucagon (Glucagon For Inj 1 Mg Vial) 1 mg IM UD PRN; Protocol PRN Reason: Hypoglycemia Protocol Stop: 11/26/20 10:14 Glucose (Glucose 40% Gel 15 Gm Tube) 15 - 30 gm PO UD PRN; Protocol PRN Reason: Hypoglycemia Protocol Stop: 11/26/20 10:14 Glucose (Glucose 10 Tabs/Tube) 4 - 8 tabs PO UD PRN; Protocol PRN Reason: Hypoglycemia Protocol Stop: 11/26/20 10:14 Folic Acid 1 mg/ Syringe 10 mls @ 5 mls/min IV QAM [facility] Stop: 11/22/20 08:59 Last Admin: 10/28/20 08:02 Dose: 5 mls/min Documented by: Furosemide 40 mg/ Syringe 4 mls @ 4 mls/min IV DAILY [facility] Stop: 11/22/20 08:59 Last Admin: 10/23/20 08:36 Dose: 4 mls/min Documented by: Norepinephrine Bitartrate (Levophed/D5w) 8 mg in 508 mls @ 23.089 mls/hr IV .Q22H1M [facility]; Protocol Stop: 11/23/20 23:44 Last Admin: 10/28/20 10:46 Dose: 0.04 mcg/kg/min, 18.5 mls/hr Documented by: Pantoprazole Sodium 40 mg/ (Syringe) 10 mls @ 5 mls/min IV DAILY@1100 [facility] Stop: 11/24/20 10:59 Last Admin: 10/27/20 12:10 Dose: 5 mls/min Documented by: Heparin Sodium/Dextrose (Heparin Sodium/Dextrose) 25,000 units in 500 mls @ 27 mls/hr IV .[id number] [facility]; Protocol Stop: 11/24/20 13:29 Last Titration: 10/28/20 07:06 Dose: 1,350 units/hr, 27 mls/hr Documented by: Acetaminophen (Ofirmev) 1,000 mg in 100 mls @ 400 mls/hr IV Q8H PRN PRN Reason: Fever Stop: 10/30/20 09:26 Last Infusion: 10/27/20 22:37 Dose: Infused Documented by: Thiamine HCl 200 mg/ Sodium (Chloride) 52 mls @ 208 mls/hr IV BID [facility] Stop: 11/26/20 10:59 Last Infusion: 10/28/20 09:36 Dose: Infused Documented by: Insulin Aspart (Insulin Aspart 100 Units/Ml 3 Ml Pen) 0 units SC Q6 [facility] Stop: 11/26/20 11:59 Last Admin: 10/28/20 05:48 Dose: Not Given Documented by: Metoprolol Tartrate (Metoprolol Tartrate 1 Mg/Ml Vial) 5 mg IV Q6 PRN PRN Reason: Hypertension Stop: 11/22/20 01:12 Miscellaneous (Carbohydrates For Hypoglycemia ) 15 - 30 gm PO UD PRN PRN Reason: Hypoglycemia Treatment Stop: 11/26/20 10:14 Nitroglycerin (Nitroglycerin Sl 0.4 Mg/Tab Tab) 0.4 mg SL UD PRN PRN Reason: Chest Pain Stop: 11/22/20 01:12 Nutritional Formula (Peptamen Intense Vhp 1.0 Blaze 1,000 Ml Bag) 1,000 ml OG UD [place]; Protocol Stop: 11/27/20 10:29 Resident Activity Tracking Resident Involvement: Resident Care Provided Care Provided: Adult Hospital Medicine (1) Pneumonia Laterality: right Lung location: lower lobe of lung Pneumonia type: due to unspecified organism Qualified Code(s): J18.9 - Pneumonia, unspecified organism
--- NOTE | 2020-10-28 07:56 | XRay Report ---
XR chest 1V portable CLINICAL HISTORY: Respiratory failure COMPARISON STUDY: October 27, 2020 FINDINGS: There is an endotracheal tube positioned approximately 0.5 cm above the braden. There is a enteric tube in place tip of which is difficult to visualize due to the underpenetrated nature of the study. There is a right internal jugular central venous catheter. The heart remains enlarged. There is a small right pleural effusion. There is improving aeration of the lung bases. There is improving pulmonary vascular congestion.[ IMPRESSION: Cardiomegaly and resolving pulmonary vascular congestion. Small right pleural effusion. I mproving aeration of the lung bases. ACT 112: Negative or not required by law. Electronically signed by: Alberto Polanco M.D. 10/28/2020 7:55 AM
[2020-10-28] MEDS: FOLIC ACID 1 MG in SYRINGE 9.8 ML IV SCH (08:02)
[2020-10-28] MEDS: CALCIUM CARBONATE 1,250 MG/5 ML UDC PO SCH ×2 (08:02→20:46)
[2020-10-28] MEDS: THIAMINE HCL 200 MG in SODIUM CHLORIDE 0.9% 50 ML IV SCH ×2 (08:03→20:46)
[2020-10-28] MEDS: DOXYCYCLINE HYCLATE 100 MG in DEXTROSE 5% 100 ML IV SCH (08:03)
--- NOTE | 2020-10-28 08:42 | Hospitalist Progress Note ---
Date of Service October 28, 2020 Assessment & Plan (1) Shortness of breath: (2) Weakness: (3) Acute diastolic (congestive) heart failure: (4) Pneumonia: (5) Hypokalemia: (6) CHF (congestive heart failure): Cardiac arrest This is a 65-year-old male who presents with shortness of breath. Pt initially treated for CHF exacerbation, RLL PNA, Aflutter, poss. R foot cellulitis. Pt w/ hx of alcohol abuse (confirmed by pt and his family members), on etoh withdrawal protocol. Night of 10/24 - pt received ativan per etoh withdrawal protocol as he was found to be agitated. Soon after pt witnessed LOC and pulseless, code blue was called, CPR per nursing staff, ACLS protocol - epi x2, cardioversion for wide complex tachycardia, started on amiodarone, intubated by ER physician. Pt then in care of ICU. Underwent hypothermic protocol, now being rewarmed. Cardiac arrest Night of 10/24 - pt received ativan per etoh withdrawal protocol as he was found to be agitated. Soon after pt witnessed LOC and pulseless, code blue was called, CPR per nursing staff, ACLS protocol - epi x2, cardioversion for wide complex tachycardia, started on amiodarone, intubated by ER physician. Pt in care of ICU. Underwent hypothermic protocol. Now being rewarmed. Pt cont. to be intubated and sedated. Then was bradycardic - amiodarone was stopped as well as metoprolol Trop elevated (also some mild elevation noted on admission believed to be 2/2 CHF exacerbation, but ischemia cannot be excluded) Echo repeated - LV function preserved Cardiology following Pt now in Afib w/ RVR, BP labile, requiring pressors 1. Pt initially admitted for Shortness of breath most likely acute on chronic diastolic congestive heart failure and also right sided heart failure, Aflutter and CAP. CXR c/w with cardiomegaly pulm. congestion and airspace consolidation in R lung base Elevated troponin on admission, secondary to above Last echo 10/08/2020 -LV is normal in size. EF 60 to 65%. RV is moderately dilated. RV systolic function is moderately reduced. LA is moderately dilated. RA is moderately dilated. There is mild mitral regurg. Pulmonary hypertension is suspected and the estimated pulmonary artery systolic pressure is between 55 and 60 mmHg. ER gave one dose of iv Lasix 40mg. Continued with IV 40mg Lasix daily, stopped (10/24) d/t Cr elev. Continued PO metoprolol, now stopped d/t bradycardia as above Pt was not a candidate for anticoagulation in the past - hx of alcoholism, risk of fall, recurrent blood loss d/t varicose bleed (last one 10/08) Given elev. trop, aflutter and now cardiac arrest, risk of CVA, recommended at least transient AC and started IV heparin Telemetry reviewed (10/26) - atrial fibrillation with bradycardic response. EKGs with more pronounced T wave inversions in anterior precordial leads Echocardiogram with preserved LV systolic function Follow daily weights, I's and O's, monitor in the tele floor. Cardiology consulted, appreciate their input CT chest - negative for PE. 2. Tachycardia on admission, most likely 2/2 CHF, PNA and alcohol withdrawal. The patient was also on high dose of Lopressor in the past. Recently restarted on 12.5 b.i.d. Continued the 12.[address] him on IV Lopressor p.r.n. Monitor the heart rates and adjust medications as needed. Cardiology following. 3. CAP - CXR c/w Airspace consolidation is seen in the right lung base - procalcitonin elevated - pt started on Rocephin and doxy on admission - switched to zosyn for concern of poss. aspiration 4. Lower extremity Cellulitis? open wound on right foot. Obtained doppler - negative for DVT Obtained CT R foot - negative for osteomyelitis ESR, CRP elevated Blood cultx - pending Wound care consulted Cont. Abx as above 5. Alcoholism, alcohol withdrawal with tachycardia and hypertension. Continued with gabapentin protocol and also IV Ativan p.r.n. Continue with IV thiamine, IV folic acid. Closely monitor for withdrawal. Pt received ativan the night of 10/24, per etoh withdrawal protocol, then LOC and code blue/ cardiac arrest as above 6 Anemia. Hemoglobin is stable at 9.5, on iron supplements. We will continue. Recent hx of venous ulcer bleed. 7. Hypertension Previously was on lisinopril 20 mg and metoprolol tartrate 50 mg b.i.d. On last admission, he was discharged on metoprolol 12.5 mg b.i.d. (pt was not on any medications prior to recent admission d/t lack of insurance) Continued PO metoprolol prior to cardiac arrest. Now requiring pressor support in ICU. Cardiology following. 8. Diabetes. Last HbA1c was 5.7. We will monitor the blood sugar. 9. LAUREN, on CPAP at bedtime. Now pt intubated. 10. Psoriasis. Previously on Humira. Needs followup. 11. History of paroxysmal atrial flutter. We will monitor. Await cardiac input. As above, will start IV heparin 12. Hypomagnesemia, replaced in the ER.Follow labs DVT prophylaxis, held heparin initially given recent bleed (from venous ulcer), now started on IV heparin Admission and Anticipated Discharge Date Admission Date: October 23, 2020 Subjective Pt seen in follow up- cardiac arrest, initially admitted for shortness of breath, CHF exacerb., ?PNA, afib/aflutter. Pt continues to be sedated and intubated in ICU Hypothermia protocol completed. off sedation (but not waking up), now in Afib w/ RVR Review of Systems Review of Systems: Unobtainable due to cognitive status and Unobtainable due to endotracheal tube Physical Exam Physical Exam: GENERAL: obese male, sedated and intubated HEENT: NC/AT, Pupils constricted NECK: No JVD, no neck masses seen, +thick neck CARDIOVASCULAR: S1, S2 heard. + irregular, + tachycardia. No murmurs. RESPIRATORY SYSTEM: on mechanical vent. +Mild rhonchi, no wheezing ABDOMEN: Soft, obese, bowel sounds present NEURO: only somewhat response to verbal/ tactile stimuli EXTREMITIES: Bilateral lower extremity chronic skin changes c/w venous stasis and varicosities, open cut in the plantar aspect of the right foot near the big toe. No drainage seen. SKIN: skin changes c/w venous stasis and varicosities, + extensive psoriasis Results & Data Results & Data ([facility]) Vital Signs (Past 12 Hours) Vital Signs Temp Pulse Resp BP Pulse Ox 10/28/20 07:27 97 H 22 100 10/28/20 06:24 37.6 C H 97 H 132/85 99 10/28/20 06:09 37.7 C H 97 H 130/77 99 10/28/20 05:09 37.7 C H 97 H 129/76 99 10/28/20 04:09 37.8 C H 97 H 121/73 98 02/09/21 03:39 37.8 C H 97 H 121/73 99 10/28/20 03:30 37.8 C H 97 H 99 10/28/20 03:24 37.8 C H 97 H 121/71 100 10/28/20 03:15 97 H 22 95 10/28/20 03:09 37.8 C H 97 H 134/76 94 10/28/20 03:00 37.8 C H 97 H 99 10/28/20 02:54 37.8 C H 97 H 114/82 99 10/28/20 02:39 37.8 C H 97 H 149/80 H 98 10/28/20 02:30 37.7 C H 98 H 94 10/28/20 02:24 37.8 C H 97 H 140/84 99 10/28/20 02:09 37.7 C H 97 H 131/76 99 10/28/20 02:00 37.8 C H 97 H 98 10/28/20 01:54 37.7 C H 100 H 131/84 98 10/28/20 01:30 37.7 C H 97 H 99 10/28/20 01:24 37.7 C H 97 H 120/104 H 94 10/28/20 01:09 37.7 C H 97 H 148/85 H 99 10/28/20 01:00 37.7 C H 97 H 99 10/28/20 00:54 37.7 C H 97 H 158/84 H 99 10/28/20 00:39 37.7 C H 97 H 146/79 H 99 10/28/20 00:30 37.7 C H 97 H 99 10/28/20 00:24 37.7 C H 96 H 148/82 H 99 10/28/20 00:09 37.7 C H 96 H 154/85 H 98 10/28/20 00:00 37.7 C H 96 H 99 10/27/20 23:54 37.7 C H 96 H 145/89 H 98 10/27/20 23:39 37.7 C H 96 H 150/87 H 98 10/27/20 23:30 37.8 C H 96 H 98 10/27/20 23:25 96 H 10/27/20 23:24 37.8 C H 96 H 25 H 147/77 H 99 10/27/20 23:09 37.9 C H 96 H 135/79 98 10/27/20 23:00 38.0 C H 96 H 99 10/27/20 22:54 38.0 C H 100 H 127/70 91 10/27/20 22:40 37.9 C H 98 H 97 10/27/20 22:39 37.9 C H 98 H 114/67 97 10/27/20 22:00 37.7 C H 97 H 98 10/27/20 21:09 37.7 C H 97 H 117/71 99 10/27/20 21:00 37.6 C H 97 H 99 10/27/20 20:54 37.6 C H 97 H 118/65 99 Laboratory Results 10/28/20 10/28/20 10/28/20 Range/Units 08:10 04:43 04:43 WBC 8.98 (4.8-10.8) K/uL RBC 3.84 L (4.7-6.1) M/uL Hgb 9.1 L (14.0-18.0) g/dL POC Hgb (14.0-18.0) g/dl Hct 28.4 L (42-52) % POC Hct (42-52) % MCV 74.0 L (80-100) fL MCH 23.7 L (25-34) pg MCHC 32.0 (32-36) g/dL RDW Std Deviation 46.1 (36.4-46.3) fL RDW Coeff of Noam 16.9 H (11.5-14.5) % Plt Count 135 (130-400) K/uL MPV 11.1 H (7.4-10.4) fL Immature Gran % (Auto) 0.8 % Neut % (Auto) 74.8 % Lymph % (Auto) 11.9 % [place] % (Auto) 11.6 % Eos % (Auto) 0.6 % Baso % (Auto) 0.3 % Neut # (Auto) 6.72 H (1.4-6.5) K/uL Lymph # (Auto) 1.07 L (1.2-3.4) K/uL [place] # (Auto) 1.04 H (0.11-0.59) K/uL Eos # (Auto) 0.05 (0-0.5) K/uL Baso # (Auto) 0.03 (0-0.2) K/uL Immature Gran # (Auto) 0.07 H (0.00-0.02) K/uL Platelet Estimate Decreased L (Normal) Hypochromasia Present Tear Drop Cells 1+ APTT (21.0-31.0) Seconds PTT Ratio Sample Site POC pH (7.35-7.45) POC pCO2 (35-46) mmHg POC pO2 (80-95) mmHg POC HCO3 (19-24) suellen/L POC Total CO2 (24-31) mmol/L POC Base Excess (-9-1.8) suellen/L ABG pH (Temp Correct) (7.35-7.45) ABG pCO2 (Temp Corrct (35-46) mmHg POC ABG pO2 at Pt Temp POC ABG O2 Sat (90-95) % Alex Test O2 Delivery Device POC O2 Rate POC FiO2 % Tidal Volume PEEP POC Sodium (135-144) mmol/L Sodium 137 (136-145) mmol/L POC Potassium (3.3-5.0) mmol/L Potassium 3.4 L (3.5-5.1) mmol/L Chloride 104 (98-107) mmol/L Carbon Dioxide 24 (21-32) mmol/L Anion Gap 9.0 (3-11) BUN 37 H (7-18) mg/dl Creatinine 1.95 H D (0.6-1.4) mg/dl Est Cr Clr Drug Dosing 56.1 ml/min Est GFR ( Amer) 41.2 Est GFR (Non-Af Amer) 35.6 BUN/Creatinine Ratio 19.1 (10-20) Glucose 124 H (70-99) mg/dl POC Glucose (other) (70-99) mg/dl Calcium 7.9 L (8.5-10.1) mg/dl Phosphorus 2.6 (2.5-4.9) mg/dl Magnesium 2.0 (1.8-2.4) mg/dl Procalcitonin Pending 10/28/20 10/28/20 10/27/20 Range/Units 04:43 03:08 19:13 WBC (4.8-10.8) K/uL RBC (4.7-6.1) M/uL Hgb (14.0-18.0) g/dL POC Hgb 10.2 L (14.0-18.0) g/dl Hct (42-52) % POC Hct 30 L (42-52) % MCV (80-100) fL MCH (25-34) pg MCHC (32-36) g/dL RDW Std Deviation (36.4-46.3) fL RDW Coeff of Noam (11.5-14.5) % Plt Count (130-400) K/uL MPV (7.4-10.4) fL Immature Gran % (Auto) % Neut % (Auto) % Lymph % (Auto) % [place] % (Auto) % Eos % (Auto) % Baso % (Auto) % Neut # (Auto) (1.4-6.5) K/uL Lymph # (Auto) (1.2-3.4) K/uL [place] # (Auto) (0.11-0.59) K/uL Eos # (Auto) (0-0.5) K/uL Baso # (Auto) (0-0.2) K/uL Immature Gran # (Auto) (0.00-0.02) K/uL Platelet Estimate (Normal) Hypochromasia Tear Drop Cells APTT 47.7 H* 49.7 H* (21.0-31.0) Seconds PTT Ratio 1.8 1.9 Sample Site Art Line POC pH 7.50 H (7.35-7.45) POC pCO2 29 L (35-46) mmHg POC pO2 97 H (80-95) mmHg POC HCO3 23 (19-24) suellen/L POC Total CO2 23 L (24-31) mmol/L POC Base Excess -1.0 (-9-1.8) suellen/L ABG pH (Temp Correct) 7.487 H (7.35-7.45) ABG pCO2 (Temp Corrct 30 L (35-46) mmHg POC ABG pO2 at Pt Temp 101 POC ABG O2 Sat 98.0 H (90-95) % Alex Test NA O2 Delivery Device Ventilator POC O2 Rate 25 POC FiO2 % Tidal Volume 500 PEEP 8 POC Sodium 134 L (135-144) mmol/L Sodium (136-145) mmol/L POC Potassium 3.5 (3.3-5.0) mmol/L Potassium (3.5-5.1) mmol/L Chloride (98-107) mmol/L Carbon Dioxide (21-32) mmol/L Anion Gap (3-11) BUN (7-18) mg/dl Creatinine (0.6-1.4) mg/dl Est Cr Clr Drug Dosing ml/min Est GFR ( Amer) Est GFR (Non-Af Amer) BUN/Creatinine Ratio (10-20) Glucose (70-99) mg/dl POC Glucose (other) (70-99) mg/dl Calcium (8.5-10.1) mg/dl Phosphorus (2.5-4.9) mg/dl Magnesium (1.8-2.4) mg/dl Procalcitonin 10/27/20 10/27/20 10/27/20 Range/Units 17:51 15:46 12:59 WBC (4.8-10.8) K/uL RBC (4.7-6.1) M/uL Hgb (14.0-18.0) g/dL POC Hgb 12.6 L 12.6 L (14.0-18.0) g/dl Hct (42-52) % POC Hct 37 L 37 L (42-52) % MCV (80-100) fL MCH (25-34) pg MCHC (32-36) g/dL RDW Std Deviation (36.4-46.3) fL RDW Coeff of Noam (11.5-14.5) % Plt Count (130-400) K/uL MPV (7.4-10.4) fL Immature Gran % (Auto) % Neut % (Auto) % Lymph % (Auto) % [place] % (Auto) % Eos % (Auto) % Baso % (Auto) % Neut # (Auto) (1.4-6.5) K/uL Lymph # (Auto) (1.2-3.4) K/uL [place] # (Auto) (0.11-0.59) K/uL Eos # (Auto) (0-0.5) K/uL Baso # (Auto) (0-0.2) K/uL Immature Gran # (Auto) (0.00-0.02) K/uL Platelet Estimate (Normal) Hypochromasia Tear Drop Cells APTT (21.0-31.0) Seconds PTT Ratio Sample Site Art Line Art Line POC pH 7.25 L 7.31 L (7.35-7.45) POC pCO2 57 H 47 H (35-46) mmHg POC pO2 97 H 133 H (80-95) mmHg POC HCO3 25 H 24 (19-24) suellen/L POC Total CO2 27 25 (24-31) mmol/L POC Base Excess -2.0 -3.0 (-9-1.8) suellen/L ABG pH (Temp Correct) 7.251 L 7.297 L (7.35-7.45) ABG pCO2 (Temp Corrct 58 H 49 H (35-46) mmHg POC ABG pO2 at Pt Temp 98 138 POC ABG O2 Sat 96.0 H 99.0 H (90-95) % Alex Test NA NA O2 Delivery Device Ventilator Ventilator POC O2 Rate 20 POC FiO2 30 40 % Tidal Volume 580 PEEP 8 8 POC Sodium 134 L 133 L (135-144) mmol/L Sodium (136-145) mmol/L POC Potassium 4.9 4.5 (3.3-5.0) mmol/L Potassium (3.5-5.1) mmol/L Chloride (98-107) mmol/L Carbon Dioxide (21-32) mmol/L Anion Gap (3-11) BUN (7-18) mg/dl Creatinine (0.6-1.4) mg/dl Est Cr Clr Drug Dosing ml/min Est GFR ( Amer) Est GFR (Non-Af Amer) BUN/Creatinine Ratio (10-20) Glucose (70-99) mg/dl POC Glucose (other) 123 H (70-99) mg/dl Calcium (8.5-10.1) mg/dl Phosphorus (2.5-4.9) mg/dl Magnesium (1.8-2.4) mg/dl Procalcitonin 10/27/20 10/27/20 10/27/20 Range/Units 12:33 11:20 11:13 WBC (4.8-10.8) K/uL RBC (4.7-6.1) M/uL Hgb (14.0-18.0) g/dL POC Hgb 12.6 L (14.0-18.0) g/dl Hct (42-52) % POC Hct 37 L (42-52) % MCV (80-100) fL MCH (25-34) pg MCHC (32-36) g/dL RDW Std Deviation (36.4-46.3) fL RDW Coeff of Noam (11.5-14.5) % Plt Count (130-400) K/uL MPV (7.4-10.4) fL Immature Gran % (Auto) % Neut % (Auto) % Lymph % (Auto) % [place] % (Auto) % Eos % (Auto) % Baso % (Auto) % Neut # (Auto) (1.4-6.5) K/uL Lymph # (Auto) (1.2-3.4) K/uL [place] # (Auto) (0.11-0.59) K/uL Eos # (Auto) (0-0.5) K/uL Baso # (Auto) (0-0.2) K/uL Immature Gran # (Auto) (0.00-0.02) K/uL Platelet Estimate (Normal) Hypochromasia Tear Drop Cells APTT 45.0 H (21.0-31.0) Seconds PTT Ratio 1.7 Sample Site POC pH 7.26 L (7.35-7.45) POC pCO2 52 H (35-46) mmHg POC pO2 77 L (80-95) mmHg POC HCO3 23 (19-24) suellen/L POC Total CO2 25 (24-31) mmol/L POC Base Excess -4.0 (-9-1.8) suellen/L ABG pH (Temp Correct) (7.35-7.45) ABG pCO2 (Temp Corrct (35-46) mmHg POC ABG pO2 at Pt Temp POC ABG O2 Sat 93.0 (90-95) % Alex Test O2 Delivery Device POC O2 Rate POC FiO2 % Tidal Volume PEEP POC Sodium 135 (135-144) mmol/L Sodium (136-145) mmol/L POC Potassium 4.8 (3.3-5.0) mmol/L Potassium (3.5-5.1) mmol/L Chloride (98-107) mmol/L Carbon Dioxide (21-32) mmol/L Anion Gap (3-11) BUN (7-18) mg/dl Creatinine (0.6-1.4) mg/dl Est Cr Clr Drug Dosing ml/min Est GFR ( Amer) Est GFR (Non-Af Amer) BUN/Creatinine Ratio (10-20) Glucose (70-99) mg/dl POC Glucose (other) 102 H (70-99) mg/dl Calcium (8.5-10.1) mg/dl Phosphorus (2.5-4.9) mg/dl Magnesium (1.8-2.4) mg/dl Procalcitonin Medications Administered Current Inpatient Medications Albuterol (Albut/Ipratrop 3mg/0.5mg Neb 3 Ml Vial) 3 ml NEB Q4R PRN PRN Reason: Shortness Of Breath Or Wheezing Stop: 11/26/20 10:59 Last Admin: 10/27/20 10:26 Dose: 3 ml Documented by: Calcium Carbonate (Calcium Carbonate 1,250 Mg/5 Ml Udc) 1,250 mg PO BID [facility] Stop: 11/27/20 08:59 Last Admin: 10/28/20 08:02 Dose: 1,250 mg Documented by: Dextrose (Dextrose 50% 50 Ml Syringe) 25 - 50 ml IV UD PRN; Protocol PRN Reason: Hypoglycemia Protocol Stop: 11/26/20 10:14 Fentanyl Citrate (Fentanyl Bolus From Bag) 50 mcg IV Q60M PRN PRN Reason: Pain or Agitation Stop: 11/07/20 22:29 Last Admin: 10/27/20 05:59 Dose: 50 mcg Documented by: Glucagon (Glucagon For Inj 1 Mg Vial) 1 mg IM UD PRN; Protocol PRN Reason: Hypoglycemia Protocol Stop: 11/26/20 10:14 Glucose (Glucose 40% Gel 15 Gm Tube) 15 - 30 gm PO UD PRN; Protocol PRN Reason: Hypoglycemia Protocol Stop: 11/26/20 10:14 Glucose (Glucose 10 Tabs/Tube) 4 - 8 tabs PO UD PRN; Protocol PRN Reason: Hypoglycemia Protocol Stop: 11/26/20 10:14 Lorazepam (Ativan) 1 mg in 2 mls @ 2 mls/min IV UD PRN; Protocol PRN Reason: EtOH Withdrawl AWSS Score 6,7 Stop: 11/22/20 01:12 Folic Acid 1 mg/ Syringe 10 mls @ 5 mls/min IV QAM [facility] Stop: 11/22/20 08:59 Last Admin: 02/09/21 08:02 Dose: 5 mls/min Documented by: Lorazepam (Ativan) 2 mg in 4 mls @ 4 mls/min IV UD PRN; Protocol PRN Reason: EtOH Withdrawl AWSS Score 8,9 Stop: 11/22/20 01:12 Last Admin: 10/24/20 21:21 Dose: 4 mls/min Documented by: Lorazepam (Ativan) 3 mg in 6 mls @ 4 mls/min IV ONCE PRN; Protocol PRN Reason: EtOH Withdrawl AWSS Score >=10 Stop: 11/22/20 01:12 Doxycycline Hyclate 100 mg/ (Dextrose) 110 mls @ 50 mls/hr IV Q12H [facility] Stop: 10/30/20 08:59 Last Admin: 10/28/20 08:03 Dose: 50 mls/hr Documented by: Furosemide 40 mg/ Syringe 4 mls @ 4 mls/min IV DAILY [facility] Stop: 11/22/20 08:59 Last Admin: 10/23/20 08:36 Dose: 4 mls/min Documented by: Piperacillin Sod/Tazobactam (Sod 4.5 gm/ Dextrose) 120 mls @ 30 mls/hr IV Q8H [facility]; Protocol Stop: 10/31/20 00:00 Last Admin: 10/28/20 08:02 Dose: 30 mls/hr Documented by: Midazolam HCl (Versed) 125 mg in 250 mls @ 0 mls/hr IV .Q0M PRN; Protocol PRN Reason: Agitation Stop: 11/23/20 22:29 Last Titration: 10/27/20 16:23 Dose: Infused Documented by: Fentanyl Citrate (Fentanyl Drip) 1,250 mcg in 250 mls @ 0 mls/hr IV .Q0M [facility]; Protocol Stop: 11/07/20 22:29 Last Admin: 10/27/20 20:18 Dose: Not Given Documented by: Norepinephrine Bitartrate (Levophed/D5w) 8 mg in 508 mls @ 23.089 mls/hr IV .Q22H1M [facility]; Protocol Stop: 11/23/20 23:44 Last Titration: 10/28/20 07:06 Dose: 0.06 mcg/kg/min, 27.7 mls/hr Documented by: Pantoprazole Sodium 40 mg/ (Syringe) 10 mls @ 5 mls/min IV DAILY@1100 [facility] Stop: 11/24/20 10:59 Last Admin: 10/27/20 12:10 Dose: 5 mls/min Documented by: Heparin Sodium/Dextrose (Heparin Sodium/Dextrose) 25,000 units in 500 mls @ 27 mls/hr IV .[id number] [facility]; Protocol Stop: 11/24/20 13:29 Last Titration: 10/28/20 07:06 Dose: 1,350 units/hr, 27 mls/hr Documented by: Acetaminophen (Ofirmev) 1,000 mg in 100 mls @ 400 mls/hr IV Q8H PRN PRN Reason: Fever Stop: 10/30/20 09:26 Last Infusion: 10/27/20 22:37 Dose: Infused Documented by: Thiamine HCl 200 mg/ Sodium (Chloride) 52 mls @ 208 mls/hr IV BID [facility] Stop: 11/26/20 10:59 Last Admin: 10/28/20 08:03 Dose: 208 mls/hr Documented by: Insulin Aspart (Insulin Aspart 100 Units/Ml 3 Ml Pen) 0 units SC Q6 [facility] Stop: 11/26/20 11:59 Last Admin: 10/28/20 05:48 Dose: Not Given Documented by: Metoprolol Tartrate (Metoprolol Tartrate 1 Mg/Ml Vial) 5 mg IV Q6 PRN PRN Reason: Hypertension Stop: 11/22/20 01:12 Midazolam HCl (Midazolam Bolus From Bag) 2 mg IV Q60M PRN PRN Reason: Sedation Stop: 11/23/20 22:29 Miscellaneous (Carbohydrates For Hypoglycemia ) 15 - 30 gm PO UD PRN PRN Reason: Hypoglycemia Treatment Stop: 11/26/20 10:14 Miscellaneous Information (Piperacill/Tazobac Consult Active) 1 ea N/A UD PRN PRN Reason: Consult Stop: 11/22/20 18:26 Nitroglycerin (Nitroglycerin Sl 0.4 Mg/Tab Tab) 0.4 mg SL UD PRN PRN Reason: Chest Pain Stop: 11/22/20 01:12 Nutritional Formula (Peptamen Intense Vhp 1.0 Blaze 1,000 Ml Bag) 1,000 ml [facility]; Protocol Stop: 11/25/20 11:44 Last Admin: 10/26/20 13:24 Dose: 1,000 ml Documented by: (1) Pneumonia Pneumonia type: due to unspecified organism Laterality: right Lung location: lower lobe of lung Qualified Code(s): J18.9 - Pneumonia, unspecified organism
[2020-10-28 10:19] LABS: iSTAT Art Bld Gas pCO2 Correct 35 mmHg (35-46); iSTAT Art Bld Gas pH Corrected 7.434 (7.35-7.45); iSTAT Arterial Blood Gas HCO3 23 meg/L (19-24); iSTAT Arterial Blood Gas pCO2 34 mmHg (35-46); iSTAT Arterial Blood Gas pH 7.44 (7.35-7.45); iSTAT Arterial Blood Gas pO2 115 mmHg (80-95); iSTAT Arterial Blood Gas pO2 C 118; iSTAT Carbon Dioxide 24 mmol/L (24-31); iSTAT Hematocrit 29 % (42-52); iSTAT Hemoglobin 9.9 g/dl (14.0-18.0); iSTAT Potassium 3.6 mmol/L (3.3-5.0); iSTAT Site Art Line; iSTAT Sodium 135 mmol/L (135-144)
[2020-10-28] MEDS ORDERED: PEPTAMEN INTENSE VHP 1.0 CAL 1,000 ML BAG OG SCH (10:30)
[2020-10-28] MEDS: NOREPINEPHRINE/D5W 8 MG/508 ML BAG IV SCH (10:46)
--- NOTE | 2020-10-28 11:34 | Cardiology Progress Note ---
Date of Service October 28, 2020 Assessment & Plan (1) Cardiac arrest: Event appears to be loss of pulse and pressure in the presence of intact rhythm likely multifactorial in etiology given multiple underlying morbidities and need for sedation. Patient does have risk factors for ischemic heart disease as well as potential tachybradycardia arrhythmias superimposed on underlying issues as below. Patient initially not anticoagulated due to multiple risk issues. Cerebrovascular embolic event not excluded as well. Patient is still ventilatory dependent with only limited neurologic recovery so far. Recommendations: When phenylephrine weaned would begin low-dose beta-reji i.e. metoprolol titrate 2.5 mg to 5 mg IV every 4 hours for heart rate control. Patient has completed 48 hours of anticoagulation and has chronic indications for anticoagulation given atrial fibrillation. Suspect will need to discontinue heparin if any further decline in hemoglobin given microcytic anemia. No current bleeding observed (2) Atrial flutter with rapid ventricular response: Currently in atrial fibrillation with rapid response rates 90-1 20 (3) Elevated troponin: (4) Obesity (BMI 30-39.9): (5) Chronic diastolic heart failure: (6) Acute on chronic renal failure: Admission and Anticipated Discharge Date Admission Date: October 23, 2020 Subjective Patient was seen and examined, chart, medications, telemetry reviewed. Recent evaluations and plans reviewed with caregivers. Hypothermia protocol complete. Patient off sedation though with only subtle improvement in neurologic condition. Will flutter eyes to stimulation. Not following command directly Chest x-ray this morning demonstrates improving aeration Patient remains in atrial fibrillation with variable rate response trending slightly lower heart rates 90-100, no bradycardia arrhythmias or pauses Hemoglobin trending slightly lower. No overt bleeding Review of Systems Review of Systems: Unobtainable due to endotracheal tube Physical Exam Constitutional: + morbidly obese and + mechanically ventilated ENMT: Ears: no external ear abnormality Nose: no external nose abnormality Mouth: + oropharynx abnormality (Endotracheal tube in place) Neck: trachea midline, no thyromegaly + thick neck Cardiovascular: Rate/Rhythm: + irregularly irregular Heart Sounds: normal S1 and normal S2; no gallop Vessels: normal carotid upstroke and radial pulses present Extremities: + edema (1-2+ with chronic indurated stasis changes) Gastrointestinal (Abdomen): normal bowel sounds, soft, nontender, no hepatosplenomegaly Percussion/Palpation: abdomen soft Skin: + induration (And chronic excoriation of the lower extremities) Neurologic: PERRL, EOMI, accommodation nl, no face palsy, no dysarthria Psychiatric: A+Ox3, euthymic affect Results & Data ([facility]) Vital Signs (Past 12 Hours) Vital Signs Temp Pulse Resp BP Pulse Ox 10/28/20 10:15 97 H 21 100 10/28/20 09:00 37.5 C 96 H 99 10/28/20 08:54 37.5 C 96 H 149/90 H 100 10/28/20 08:40 37.5 C 97 H 133/87 100 10/28/20 08:30 37.5 C 96 H 100 10/28/20 08:25 37.5 C 97 H 141/87 H 99 10/28/20 08:09 37.5 C 97 H 139/88 99 10/28/20 08:00 37.5 C 95 H 134/46 L 99 10/28/20 07:54 37.5 C 97 H 130/79 99 10/28/20 07:40 37.5 C 97 H 136/77 100 10/28/20 07:30 37.5 C 97 H 99 10/28/20 07:27 97 H 22 100 10/28/20 07:24 37.5 C 96 H 136/83 100 10/28/20 07:09 37.5 C 97 H 136/79 100 10/28/20 07:00 37.5 C 97 H 99 10/28/20 06:24 37.6 C H 97 H 132/85 99 10/28/20 06:09 37.7 C H 97 H 130/77 99 10/28/20 05:09 37.7 C H 97 H 129/76 99 10/28/20 04:09 37.8 C H 97 H 121/73 98 10/28/20 03:39 37.8 C H 97 H 121/73 99 10/28/20 03:30 37.8 C H 97 H 99 10/28/20 03:24 37.8 C H 97 H 121/71 100 10/28/20 03:15 97 H 22 95 10/28/20 03:09 37.8 C H 97 H 134/76 94 10/28/20 03:00 37.8 C H 97 H 99 10/28/20 02:54 37.8 C H 97 H 114/82 99 10/28/20 02:39 37.8 C H 97 H 149/80 H 98 10/28/20 02:30 37.7 C H 98 H 94 10/28/20 02:24 37.8 C H 97 H 140/84 99 10/28/20 02:09 37.7 C H 97 H 131/76 99 10/28/20 02:00 37.8 C H 97 H 98 10/28/20 01:54 37.7 C H 100 H 131/84 98 10/28/20 01:30 37.7 C H 97 H 99 10/28/20 01:24 37.7 C H 97 H 120/104 H 94 10/28/20 01:09 37.7 C H 97 H 148/85 H 99 10/28/20 01:00 37.7 C H 97 H 99 10/28/20 00:54 37.7 C H 97 H 158/84 H 99 10/28/20 00:39 37.7 C H 97 H 146/79 H 99 10/28/20 00:30 37.7 C H 97 H 99 10/28/20 00:24 37.7 C H 96 H 148/82 H 99 10/28/20 00:09 37.7 C H 96 H 154/85 H 98 10/28/20 00:00 37.7 C H 96 H 99 10/27/20 23:54 37.7 C H 96 H 145/89 H 98 10/27/20 23:39 37.7 C H 96 H 150/87 H 98 Laboratory Results Laboratory Results - last 24 hr 10/27/20 10/27/20 10/27/20 11:13 11:20 12:33 WBC RBC Hgb POC Hgb 12.6 L Hct POC Hct 37 L MCV MCH MCHC RDW Std Deviation RDW Coeff of Noam Plt Count MPV Immature Gran % (Auto) Neut % (Auto) Lymph % (Auto) [place] % (Auto) Eos % (Auto) Baso % (Auto) Neut # (Auto) Lymph # (Auto) [place] # (Auto) Eos # (Auto) Baso # (Auto) Immature Gran # (Auto) Platelet Estimate Hypochromasia Tear Drop Cells APTT 45.0 H PTT Ratio 1.7 Sample Site POC pH 7.26 L POC pCO2 52 H POC pO2 77 L POC HCO3 23 POC Total CO2 25 POC Base Excess -4.0 ABG pH (Temp Correct) ABG pCO2 (Temp Corrct POC ABG pO2 at Pt Temp POC ABG O2 Sat 93.0 Alex Test O2 Delivery Device POC O2 Rate Minute Ventilation POC FiO2 Tidal Volume PEEP POC Sodium 135 Sodium POC Potassium 4.8 Potassium Chloride Carbon Dioxide Anion Gap BUN Creatinine Est Cr Clr Drug Dosing Est GFR ( Amer) Est GFR (Non-Af Amer) BUN/Creatinine Ratio Glucose POC Glucose (other) 102 H Calcium Phosphorus Magnesium Procalcitonin 10/27/20 10/27/20 10/27/20 12:59 15:46 17:51 WBC RBC Hgb POC Hgb 12.6 L 12.6 L Hct POC Hct 37 L 37 L MCV MCH MCHC RDW Std Deviation RDW Coeff of Noam Plt Count MPV Immature Gran % (Auto) Neut % (Auto) Lymph % (Auto) [place] % (Auto) Eos % (Auto) Baso % (Auto) Neut # (Auto) Lymph # (Auto) [place] # (Auto) Eos # (Auto) Baso # (Auto) Immature Gran # (Auto) Platelet Estimate Hypochromasia Tear Drop Cells APTT PTT Ratio Sample Site Art Line Art Line POC pH 7.31 L 7.25 L POC pCO2 47 H 57 H POC pO2 133 H 97 H POC HCO3 24 25 H POC Total CO2 25 27 POC Base Excess -3.0 -2.0 ABG pH (Temp Correct) 7.297 L 7.251 L ABG pCO2 (Temp Corrct 49 H 58 H POC ABG pO2 at Pt Temp 138 98 POC ABG O2 Sat 99.0 H 96.0 H Alex Test NA NA O2 Delivery Device Ventilator Ventilator POC O2 Rate 20 Minute Ventilation POC FiO2 40 30 Tidal Volume 580 PEEP 8 8 POC Sodium 133 L 134 L Sodium POC Potassium 4.5 4.9 Potassium Chloride Carbon Dioxide Anion Gap BUN Creatinine Est Cr Clr Drug Dosing Est GFR ( Amer) Est GFR (Non-Af Amer) BUN/Creatinine Ratio Glucose POC Glucose (other) 123 H Calcium Phosphorus Magnesium Procalcitonin 10/27/20 10/28/20 10/28/20 19:13 00:52 03:08 WBC RBC Hgb POC Hgb 10.2 L Hct POC Hct 30 L MCV MCH MCHC RDW Std Deviation RDW Coeff of Noam Plt Count MPV Immature Gran % (Auto) Neut % (Auto) Lymph % (Auto) [place] % (Auto) Eos % (Auto) Baso % (Auto) Neut # (Auto) Lymph # (Auto) [place] # (Auto) Eos # (Auto) Baso # (Auto) Immature Gran # (Auto) Platelet Estimate Hypochromasia Tear Drop Cells APTT 49.7 H* PTT Ratio 1.9 Sample Site Art Line POC pH 7.50 H POC pCO2 29 L POC pO2 97 H POC HCO3 23 POC Total CO2 23 L POC Base Excess -1.0 ABG pH (Temp Correct) 7.487 H ABG pCO2 (Temp Corrct 30 L POC ABG pO2 at Pt Temp 101 POC ABG O2 Sat 98.0 H Alex Test NA O2 Delivery Device Ventilator POC O2 Rate 25 Minute Ventilation POC FiO2 Tidal Volume 500 PEEP 8 POC Sodium 134 L Sodium POC Potassium 3.5 Potassium Chloride Carbon Dioxide Anion Gap BUN Creatinine Est Cr Clr Drug Dosing Est GFR ( Amer) Est GFR (Non-Af Amer) BUN/Creatinine Ratio Glucose POC Glucose (other) 134 H Calcium Phosphorus Magnesium Procalcitonin 10/28/20 10/28/20 10/28/20 04:43 04:43 04:43 WBC 8.98 RBC 3.84 L Hgb 9.1 L POC Hgb Hct 28.4 L POC Hct MCV 74.0 L MCH 23.7 L MCHC 32.0 RDW Std Deviation 46.1 RDW Coeff of Noam 16.9 H Plt Count 135 MPV 11.1 H Immature Gran % (Auto) 0.8 Neut % (Auto) 74.8 Lymph % (Auto) 11.9 [place] % (Auto) 11.6 Eos % (Auto) 0.6 Baso % (Auto) 0.3 Neut # (Auto) 6.72 H Lymph # (Auto) 1.07 L [place] # (Auto) 1.04 H Eos # (Auto) 0.05 Baso # (Auto) 0.03 Immature Gran # (Auto) 0.07 H Platelet Estimate Decreased L Hypochromasia Present Tear Drop Cells 1+ APTT 47.7 H* PTT Ratio 1.8 Sample Site POC pH POC pCO2 POC pO2 POC HCO3 POC Total CO2 POC Base Excess ABG pH (Temp Correct) ABG pCO2 (Temp Corrct POC ABG pO2 at Pt Temp POC ABG O2 Sat Alex Test O2 Delivery Device POC O2 Rate Minute Ventilation POC FiO2 Tidal Volume PEEP POC Sodium Sodium 137 POC Potassium Potassium 3.4 L Chloride 104 Carbon Dioxide 24 Anion Gap 9.0 BUN 37 H Creatinine 1.95 H D Est Cr Clr Drug Dosing 56.1 Est GFR ( Amer) 41.2 Est GFR (Non-Af Amer) 35.6 BUN/Creatinine Ratio 19.1 Glucose 124 H POC Glucose (other) Calcium 7.9 L Phosphorus 2.6 Magnesium 2.0 Procalcitonin 10/28/20 10/28/20 10/28/20 05:46 08:10 10:05 WBC RBC Hgb POC Hgb 9.9 L Hct POC Hct 29 L MCV MCH MCHC RDW Std Deviation RDW Coeff of Noam Plt Count MPV Immature Gran % (Auto) Neut % (Auto) Lymph % (Auto) [place] % (Auto) Eos % (Auto) Baso % (Auto) Neut # (Auto) Lymph # (Auto) [place] # (Auto) Eos # (Auto) Baso # (Auto) Immature Gran # (Auto) Platelet Estimate Hypochromasia Tear Drop Cells APTT PTT Ratio Sample Site Art Line POC pH 7.44 POC pCO2 34 L POC pO2 115 H POC HCO3 23 POC Total CO2 24 POC Base Excess -1.0 ABG pH (Temp Correct) 7.434 ABG pCO2 (Temp Corrct 35 POC ABG pO2 at Pt Temp 118 POC ABG O2 Sat 99.0 H Alex Test NA O2 Delivery Device Ventilator POC O2 Rate 20 Minute Ventilation 10.3 POC FiO2 Tidal Volume 500 PEEP 8 POC Sodium 135 Sodium POC Potassium 3.6 Potassium Chloride Carbon Dioxide Anion Gap BUN Creatinine Est Cr Clr Drug Dosing Est GFR ( Amer) Est GFR (Non-Af Amer) BUN/Creatinine Ratio Glucose POC Glucose (other) 128 H Calcium Phosphorus Magnesium Procalcitonin 1.28 H
[2020-10-28] MEDS: PANTOprazole 40 MG in SYRINGE 0 ML IV SCH (11:41)
[2020-10-28] MEDS: BETAMETHASONE DIP AUG (DIPROLENE) 0.05% CR 15 GM TUBE EXT SCH ×2 (11:49→20:46)
[2020-10-28] MEDS: METOPROLOL TARTRATE 1 MG/ML VIAL IV PRN (15:12)
--- NOTE | 2020-10-28 15:29 | Billing Data ---
Date of Service October 28, 2020 Coding Level of Care Code 38000 Subseq Hosp Care Lvl 3
[2020-10-28] MEDS: ACETAMINOPHEN 1,000 MG/100 ML VIAL IV PRN (17:01)
[2020-10-28] MEDS: HEPARIN SODIUM/DEXTROSE 25,000 UNITS/500 ML BAG IV SCH (17:02)
[2020-10-29] MEDS ORDERED: PROPOFOL BOLUS FROM BAG IV PRN (00:06)
[2020-10-29] MEDS ORDERED: STAT IV Infusion **Titration per Protocol STA (00:06)
[2020-10-29] MEDS ORDERED: PROPOFOL IV EMULSION 10 MG/ML 100 ML VIAL IV ONE (00:07)
[2020-10-29] MEDS: INSULIN ASPART 100 UNITS/ML 3 ML PEN SC SCH ×4 (00:14→17:07)
[2020-10-29] MEDS: propofoL 1,000 MG/100 ML VIAL IV SCH ×5 (00:15→18:50)
[2020-10-29] MEDS: ALBUT/IPRATROP 3MG/0.5MG NEB 3 ML VIAL NEB PRN ×5 (04:01→19:09)
[2020-10-29 04:22] LABS: iSTAT Art Bld Gas pCO2 Correct 31 mmHg (35-46); iSTAT Arterial Blood Gas HCO3 24 meg/L (19-24); iSTAT Arterial Blood Gas pCO2 31 mmHg (35-46); iSTAT Arterial Blood Gas pO2 109 mmHg (80-95); iSTAT Arterial Blood Gas pO2 C 109; iSTAT Carbon Dioxide 25 mmol/L (24-31); iSTAT FiO2 30 %; iSTAT Hematocrit 27 % (42-52); iSTAT Hemoglobin 9.2 g/dl (14.0-18.0); iSTAT Potassium 3.4 mmol/L (3.3-5.0); iSTAT Site Art Line; iSTAT Sodium 135 mmol/L (135-144)
[2020-10-29 04:48] LABS: Basophils # (auto) 0.02 K/uL (0-0.2); Basophils % (auto) 0.3 %; Eosinophils # (auto) 0.14 K/uL (0-0.5); Hematocrit (blood only) 27.5 % (42-52); Hemoglobin 8.6 g/dL (14.0-18.0); Immature Granulocytes # (auto) 0.04 K/uL (0.00-0.02); Immature Granulocytes % (auto) 0.6 %; Lymphocytes # (auto) 1.08 K/uL (1.2-3.4); Lymphocytes % (auto) 15.5 %; Mean Corpuscular Hemoglobin 23.6 pg (25-34); Mean Corpuscular Hgb Conc 31.3 g/dL (32-36); Mean Corpuscular Volume 75.5 fL (80-100); Monocytes # (auto) 0.82 K/uL (0.11-0.59); Monocytes % (auto) 11.8 %; Neutrophils # (auto) 4.86 K/uL (1.4-6.5); Neutrophils % (auto) 69.8 %; Platelet Count 143 K/uL (130-400); RDW Coefficient of Variation 16.9 % (11.5-14.5); RDW Standard Deviation 46.6 fL (36.4-46.3); Red Blood Count 3.64 M/uL (4.7-6.1); White Blood Count 6.96 K/uL (4.8-10.8)
[2020-10-29 05:07] LABS: Partial Thromboplastin Ratio 1.8
[2020-10-29 05:10] LABS: Partial Thromboplastin Time 46.6 Seconds (21.0-31.0)
[2020-10-29 05:18] LABS: BUN Creatinine Ratio 20.2 (10-20); Creatinine Clr Calc Pharmacy 76.5 ml/min; Est GFR (Non-African American) 51.8; Magnesium 2.1 mg/dl (1.8-2.4); Potassium 3.4 mmol/L (3.5-5.1)
[2020-10-29 05:20] LABS: Phosphorus 1.8 mg/dl (2.5-4.9)
--- NOTE | 2020-10-29 07:15 | XRay Report ---
SINGLE VIEW CHEST CLINICAL HISTORY: Status post cardiac arrest. Respiratory failure. FINDINGS: An AP, portable, upright chest radiograph is compared to study dated 10/28/2020. Correlation is made with chest CT dated 10/24/2020. The examination is degraded by portable technique and patient r otation. A right internal jugular central venous catheter has been removed. Endotracheal and enteri c tubes are unchanged in position. The heart is markedly enlarged. There is mild pulmonary vascular c ongestion. There are small pleural effusions with bibasilar atelectasis. No pneumothorax is seen. The bony thorax is grossly intact. IMPRESSION: 1. Cardiomegaly with pulmonary vascular congestion. 2. Small pleural effusions with bibasilar atelectasis. 3. A right internal jugular central venous catheter has been removed. ACT 112: Negative or not required by law. Electronically signed by: George Fofana M.D. 10/29/2020 7:14 AM
[2020-10-29] MEDS ORDERED: POTASSIUM PHOS 3 MMOL/1 ML INFUSION IV STA (07:30)
[2020-10-29] MEDS ORDERED: POTASSIUM PHOSPHATE 21 MMOL in SODIUM CHLORIDE 0.9% 500 ML IV ONE (07:45)
[2020-10-29] MEDS: METOPROLOL TARTRATE 1 MG/ML VIAL IV PRN (07:50)
[2020-10-29] MEDS: CALCIUM CARBONATE 1,250 MG/5 ML UDC PO SCH ×2 (07:57→21:43)
[2020-10-29] MEDS: BETAMETHASONE DIP AUG (DIPROLENE) 0.05% CR 15 GM TUBE EXT SCH ×2 (07:57→21:44)
[2020-10-29] MEDS: THIAMINE HCL 200 MG in SODIUM CHLORIDE 0.9% 50 ML IV SCH ×2 (07:59→21:43)
[2020-10-29] MEDS: FOLIC ACID 1 MG in SYRINGE 9.8 ML IV SCH (07:59)
--- NOTE | 2020-10-29 07:59 | Critical Care Progress Note ---
Date of Service October 29, 2020 Assessment & Plan (1) Cardiac arrest: Reason critically ill: 65-year-old male status post in-hospital cardiac arrest with ROSC requiring close hemodynamic monitoring, now completed rewarming protocol and awaiting further delineation of extent of potential neurologic insult from arrest. Neuro: -[facility]: Unable to assess -Alcohol abuse: -Will consider re-addition of alcohol withdrawal scale and Ativan based off of patient's symptoms -CT head demonstrating no acute intracranial abnormality -EEG demonstrating severe background suppression consistent with severe nonspecific encephalopathy -Currently >72-hour out from cardiac arrest -Start propofol for sedation, with daily sedation breaks and spontaneous breathing trials -given extent of non-purposeful movements and failures of spontaneous breathing trials to demonstrate potential for extubation -continue soft wrist restraints Cardiac/Vascular: -In-hospital cardiac arrest with ROSC -Estimated downtime approximately 10 minutes -Completed TTM and rewarming protocol -Currently >72 hours out from cardiac arrest -A. fib with RVR -start Metoprolol 12.5mg q6h PO -increase following demonstrating tolerance -Metoprolol tartrate 5 mg q4h PRN sustained tachycardia greater than 100 -Cardiology consulted -Continue heparin at this time -Echo demonstrated EF 60 to 65%, midseptal dyssynergy, no regional wall abnormalities -CXR this AM demonstrating increased pulmonary vascular congestion -start lasix 40mg IV daily Respiratory: -Respiratory failure -Secondary to cardiac arrest, intubated during code -wean off ventilator as tolerated -spontaneously breathing trials with sedation hold daily GI/Nutrition: -Restart Peptamen -GI PPx: Protonix -Consideration of Reglan if abdominal distention becomes concerned for distension with tube feeds Renal/Lytes: -Acute kidney injury superimposed on chronic kidney disease -likely pre-renal in etiology -Electrolyte abnormalities -K 3.4 this AM, Phos 1.8 this a.m.; repleted with 21 mmol KPhos -Continue to monitor daily and replete electrolytes as indicated : -Brock in place -Continue to monitor strict I's and O's ENDO: -History of type 2 diabetes -Continue management per ICU glycemic protocol -Sliding scale insulin available Skin: -Patient with psoriatic appearing plaques over bilateral lower extremities -No known history of medication usage for this -continue betamethasone cream BID HEME: -Hgb stable at 8.6 this a.m. -No signs acute blood loss at this time -MCV of 79 indiciting microcytic anemia -blood work from 10/08 indicates iron deficiency at that time -start Ferrous sulfate PO -Continue to monitor ID: -Hold antibiotics at this time in the setting of no demonstrated source of infection -Blood cultures x4 with no growth to date -Sputum culture negative -Procal 0.73 today, continuing downtrend since admission Lines/IV Access: -PIV x3 -ET and OG DVT Prophylaxis: -continue systemic heparin (2) Respiratory failure: (3) Acute on chronic renal failure: (4) Chronic diastolic heart failure: (5) Acute diastolic (congestive) heart failure: (6) Pneumonia: (7) Shortness of breath: (8) Depression: (9) Alcohol abuse: Admission and Anticipated Discharge Date Admission Date: October 23, 2020 Supervising Physician Co-Signing Physician Notes Patient seen and examined. Discussed with bedside critical care nurse as well as with family practice resident. Patient was reviewed on multidisciplinary rounds. Agree with assessment and plan as noted. Patient failed an SBT this morning due to tachypnea, tachycardia, and hypoxemia. He is moving all 4 extremities which is somewhat encouraging but continues to not follow commands or to be able to execute complex orders. We will continue to support and see how he does. If he fails significant improvement may consider tracheostomy early next week. No indication for transfusion. Oral iron supplementation is okay. No indication for Epogen. Procalcitonin is decreasing. Kidney function continues to show slow and steady improvement. Continue tube feeding. Prognosis remains somewhat guarded. Subjective Overnight, patient continued to have non-purposefull movements, and was frequently gagging on the ET tube, and squirming in bed to the point of being close to falling off. Was unable to be redirected, and required sedation with propofol. Continued to do so this AM following trial of sedation hold. Failed attempted spontaneous breathing trial this AM. Review of Systems Review of Systems: Unobtainable due to endotracheal tube and Unobtainable due to reduced consciousness Physical Exam Constitutional: + obese, + disheveled and + mechanically ventilated Eyes: + anicteric sclerae and + fixed pupils; no conjunctival abnormality and no scleral abnormality Respiratory: symmetric chest movement; + abnormal respiratory effort Auscultation: + crackles (b/l lower lobes); no rales, no rhonchi and no wheezes Cardiovascular: Rate/Rhythm: + tachycardic and + irregularly irregular Heart Sounds: no gallop, no murmur and no cardiac rub Vessels: no JVD Extremities: + pedal edema (2+ b/l lower extremities) Gastrointestinal (Abdomen): Inspection/Auscultation: abdomen normal to inspection and normal bowel sounds; abdomen not distended and no abdominal edema Skin: chronic appearing venous stasis changes to b/l lower extremitities; psoriatic-plaques over b/l lower extremities Neurologic: alert, moving all extremities spontaneously, does not follow commands, no eye contact, no spontaneous eye movement, no pupillary reflex to light, no corneal reflex with cotton tipped applicator Psychiatric: Orientation: alert; + uncooperative Results & Data Results & Data ([facility]) Vital Signs (Past 12 Hours) Vital Signs Temp Pulse Resp BP Pulse Ox 10/29/20 07:50 150 H 185/100 H 10/29/20 06:00 37.3 C 98 H 100 10/29/20 05:11 37.2 C 100 H 96/62 L 100 10/29/20 04:11 37.1 C 76 106/68 100 10/29/20 04:07 18 10/29/20 03:35 77 20 100 10/29/20 03:11 37.1 C 81 100/62 99 10/29/20 02:11 37.2 C 84 105/65 99 10/29/20 01:11 37.4 C 92 H 98 10/29/20 00:11 37.4 C 109 H 124/71 96 10/28/20 23:45 73 20 100 10/28/20 23:28 84 10/28/20 23:10 37.3 C 95 H 105/65 100 10/28/20 22:10 37.3 C 97 H 107/66 100 10/28/20 21:10 37.4 C 98 H 95/57 L 100 10/28/20 20:10 37.6 C H 97 H 100/60 100 10/28/20 20:00 97 H Laboratory Results 10/29/20 10/29/20 10/29/20 Range/Units 06:02 04:27 04:27 WBC (4.8-10.8) K/uL RBC (4.7-6.1) M/uL Hgb (14.0-18.0) g/dL POC Hgb (14.0-18.0) g/dl Hct (42-52) % POC Hct (42-52) % MCV (80-100) fL MCH (25-34) pg MCHC (32-36) g/dL RDW Std Deviation (36.4-46.3) fL RDW Coeff of Noam (11.5-14.5) % Plt Count (130-400) K/uL MPV (7.4-10.4) fL Immature Gran % (Auto) % Neut % (Auto) % Lymph % (Auto) % [place] % (Auto) % Eos % (Auto) % Baso % (Auto) % Neut # (Auto) (1.4-6.5) K/uL Lymph # (Auto) (1.2-3.4) K/uL [place] # (Auto) (0.11-0.59) K/uL Eos # (Auto) (0-0.5) K/uL Baso # (Auto) (0-0.2) K/uL Immature Gran # (Auto) (0.00-0.02) K/uL APTT 46.6 H* (21.0-31.0) Seconds PTT Ratio 1.8 Sample Site POC pH (7.35-7.45) POC pCO2 (35-46) mmHg POC pO2 (80-95) mmHg POC HCO3 (19-24) suellen/L POC Total CO2 (24-31) mmol/L POC Base Excess (-9-1.8) suellen/L ABG pH (Temp Correct) (7.35-7.45) ABG pCO2 (Temp Corrct (35-46) mmHg POC ABG pO2 at Pt Temp POC ABG O2 Sat (90-95) % Alex Test O2 Delivery Device POC O2 Rate Minute Ventilation POC FiO2 % Tidal Volume PEEP POC Sodium (135-144) mmol/L Sodium (136-145) mmol/L POC Potassium (3.3-5.0) mmol/L Potassium (3.5-5.1) mmol/L Chloride (98-107) mmol/L Carbon Dioxide (21-32) mmol/L Anion Gap (3-11) BUN (7-18) mg/dl Creatinine (0.6-1.4) mg/dl Est Cr Clr Drug Dosing ml/min Est GFR ( Amer) Est GFR (Non-Af Amer) BUN/Creatinine Ratio (10-20) Glucose (70-99) mg/dl POC Glucose (other) 116 H (70-99) mg/dl Calcium (8.5-10.1) mg/dl Phosphorus (2.5-4.9) mg/dl Magnesium (1.8-2.4) mg/dl Procalcitonin 0.73 H (0-0.5) ng/ml 10/29/20 10/29/20 10/29/20 Range/Units 04:27 04:27 04:07 WBC 6.96 (4.8-10.8) K/uL RBC 3.64 L (4.7-6.1) M/uL Hgb 8.6 L (14.0-18.0) g/dL POC Hgb 9.2 L (14.0-18.0) g/dl Hct 27.5 L (42-52) % POC Hct 27 L (42-52) % MCV 75.5 L (80-100) fL MCH 23.6 L (25-34) pg MCHC 31.3 L (32-36) g/dL RDW Std Deviation 46.6 H (36.4-46.3) fL RDW Coeff of Noam 16.9 H (11.5-14.5) % Plt Count 143 (130-400) K/uL MPV 11.0 H (7.4-10.4) fL Immature Gran % (Auto) 0.6 % Neut % (Auto) 69.8 % Lymph % (Auto) 15.5 % [place] % (Auto) 11.8 % Eos % (Auto) 2.0 % Baso % (Auto) 0.3 % Neut # (Auto) 4.86 (1.4-6.5) K/uL Lymph # (Auto) 1.08 L (1.2-3.4) K/uL [place] # (Auto) 0.82 H (0.11-0.59) K/uL Eos # (Auto) 0.14 (0-0.5) K/uL Baso # (Auto) 0.02 (0-0.2) K/uL Immature Gran # (Auto) 0.04 H (0.00-0.02) K/uL APTT (21.0-31.0) Seconds PTT Ratio Sample Site Art Line POC pH 7.50 H (7.35-7.45) POC pCO2 31 L (35-46) mmHg POC pO2 109 H (80-95) mmHg POC HCO3 24 (19-24) suellen/L POC Total CO2 25 (24-31) mmol/L POC Base Excess 1.0 (-9-1.8) suellen/L ABG pH (Temp Correct) 7.500 H (7.35-7.45) ABG pCO2 (Temp Corrct 31 L (35-46) mmHg POC ABG pO2 at Pt Temp 109 POC ABG O2 Sat 99.0 H (90-95) % Alex Test NA O2 Delivery Device Ventilator POC O2 Rate 20 Minute Ventilation 10 POC FiO2 30 % Tidal Volume 500 PEEP 5 POC Sodium 135 (135-144) mmol/L Sodium 137 (136-145) mmol/L POC Potassium 3.4 (3.3-5.0) mmol/L Potassium 3.4 L (3.5-5.1) mmol/L Chloride 105 (98-107) mmol/L Carbon Dioxide 26 (21-32) mmol/L Anion Gap 6.0 (3-11) BUN 29 H (7-18) mg/dl Creatinine 1.43 H D (0.6-1.4) mg/dl Est Cr Clr Drug Dosing 76.5 ml/min Est GFR ( Amer) 60.0 Est GFR (Non-Af Amer) 51.8 BUN/Creatinine Ratio 20.2 H (10-20) Glucose 112 H (70-99) mg/dl POC Glucose (other) (70-99) mg/dl Calcium 8.0 L (8.5-10.1) mg/dl Phosphorus 1.8 L (2.5-4.9) mg/dl Magnesium 2.1 (1.8-2.4) mg/dl Procalcitonin (0-0.5) ng/ml 10/29/20 10/28/20 10/28/20 Range/Units 00:04 10:05 08:10 WBC (4.8-10.8) K/uL RBC (4.7-6.1) M/uL Hgb (14.0-18.0) g/dL POC Hgb 9.9 L (14.0-18.0) g/dl Hct (42-52) % POC Hct 29 L (42-52) % MCV (80-100) fL MCH (25-34) pg MCHC (32-36) g/dL RDW Std Deviation (36.4-46.3) fL RDW Coeff of Noam (11.5-14.5) % Plt Count (130-400) K/uL MPV (7.4-10.4) fL Immature Gran % (Auto) % Neut % (Auto) % Lymph % (Auto) % [place] % (Auto) % Eos % (Auto) % Baso % (Auto) % Neut # (Auto) (1.4-6.5) K/uL Lymph # (Auto) (1.2-3.4) K/uL [place] # (Auto) (0.11-0.59) K/uL Eos # (Auto) (0-0.5) K/uL Baso # (Auto) (0-0.2) K/uL Immature Gran # (Auto) (0.00-0.02) K/uL APTT (21.0-31.0) Seconds PTT Ratio Sample Site Art Line POC pH 7.44 (7.35-7.45) POC pCO2 34 L (35-46) mmHg POC pO2 115 H (80-95) mmHg POC HCO3 23 (19-24) suellen/L POC Total CO2 24 (24-31) mmol/L POC Base Excess -1.0 (-9-1.8) suellen/L ABG pH (Temp Correct) 7.434 (7.35-7.45) ABG pCO2 (Temp Corrct 35 (35-46) mmHg POC ABG pO2 at Pt Temp 118 POC ABG O2 Sat 99.0 H (90-95) % Alex Test NA O2 Delivery Device Ventilator POC O2 Rate 20 Minute Ventilation 10.3 POC FiO2 % Tidal Volume 500 PEEP 8 POC Sodium 135 (135-144) mmol/L Sodium (136-145) mmol/L POC Potassium 3.6 (3.3-5.0) mmol/L Potassium (3.5-5.1) mmol/L Chloride (98-107) mmol/L Carbon Dioxide (21-32) mmol/L Anion Gap (3-11) BUN (7-18) mg/dl Creatinine (0.6-1.4) mg/dl Est Cr Clr Drug Dosing ml/min Est GFR ( Amer) Est GFR (Non-Af Amer) BUN/Creatinine Ratio (10-20) Glucose (70-99) mg/dl POC Glucose (other) 115 H (70-99) mg/dl Calcium (8.5-10.1) mg/dl Phosphorus (2.5-4.9) mg/dl Magnesium (1.8-2.4) mg/dl Procalcitonin 1.28 H (0-0.5) ng/ml 10/28/20 10/28/20 Range/Units 05:46 00:52 WBC (4.8-10.8) K/uL RBC (4.7-6.1) M/uL Hgb (14.0-18.0) g/dL POC Hgb (14.0-18.0) g/dl Hct (42-52) % POC Hct (42-52) % MCV (80-100) fL MCH (25-34) pg MCHC (32-36) g/dL RDW Std Deviation (36.4-46.3) fL RDW Coeff of Noam (11.5-14.5) % Plt Count (130-400) K/uL MPV (7.4-10.4) fL Immature Gran % (Auto) % Neut % (Auto) % Lymph % (Auto) % [place] % (Auto) % Eos % (Auto) % Baso % (Auto) % Neut # (Auto) (1.4-6.5) K/uL Lymph # (Auto) (1.2-3.4) K/uL [place] # (Auto) (0.11-0.59) K/uL Eos # (Auto) (0-0.5) K/uL Baso # (Auto) (0-0.2) K/uL Immature Gran # (Auto) (0.00-0.02) K/uL APTT (21.0-31.0) Seconds PTT Ratio Sample Site POC pH (7.35-7.45) POC pCO2 (35-46) mmHg POC pO2 (80-95) mmHg POC HCO3 (19-24) suellen/L POC Total CO2 (24-31) mmol/L POC Base Excess (-9-1.8) suellen/L ABG pH (Temp Correct) (7.35-7.45) ABG pCO2 (Temp Corrct (35-46) mmHg POC ABG pO2 at Pt Temp POC ABG O2 Sat (90-95) % Alex Test O2 Delivery Device POC O2 Rate Minute Ventilation POC FiO2 % Tidal Volume PEEP POC Sodium (135-144) mmol/L Sodium (136-145) mmol/L POC Potassium (3.3-5.0) mmol/L Potassium (3.5-5.1) mmol/L Chloride (98-107) mmol/L Carbon Dioxide (21-32) mmol/L Anion Gap (3-11) BUN (7-18) mg/dl Creatinine (0.6-1.4) mg/dl Est Cr Clr Drug Dosing ml/min Est GFR ( Amer) Est GFR (Non-Af Amer) BUN/Creatinine Ratio (10-20) Glucose (70-99) mg/dl POC Glucose (other) 128 H 134 H (70-99) mg/dl Calcium (8.5-10.1) mg/dl Phosphorus (2.5-4.9) mg/dl Magnesium (1.8-2.4) mg/dl Procalcitonin (0-0.5) ng/ml Medications Administered Current Inpatient Medications Albuterol (Albut/Ipratrop 3mg/0.5mg Neb 3 Ml Vial) 3 ml NEB Q4R PRN PRN Reason: Shortness Of Breath Or Wheezing Stop: 11/26/20 10:59 Last Admin: 10/29/20 07:14 Dose: 3 ml Documented by: Betamethasone Dipropion Augmented (Betamethasone Dip Aug (Diprolene) 0.05% Cr 15 Gm Tube) 1 appln EXT BID [facility] Stop: 11/25/20 10:59 Last Admin: 10/29/20 07:57 Dose: 1 appln Documented by: Calcium Carbonate (Calcium Carbonate 1,250 Mg/5 Ml Udc) 1,250 mg PO BID [facility] Stop: 11/27/20 08:59 Last Admin: 10/29/20 07:57 Dose: 1,250 mg Documented by: Dextrose (Dextrose 50% 50 Ml Syringe) 25 - 50 ml IV UD PRN; Protocol PRN Reason: Hypoglycemia Protocol Stop: 11/26/20 10:14 Glucagon (Glucagon For Inj 1 Mg Vial) 1 mg IM UD PRN; Protocol PRN Reason: Hypoglycemia Protocol Stop: 11/26/20 10:14 Glucose (Glucose 40% Gel 15 Gm Tube) 15 - 30 gm PO UD PRN; Protocol PRN Reason: Hypoglycemia Protocol Stop: 11/26/20 10:14 Glucose (Glucose 10 Tabs/Tube) 4 - 8 tabs PO UD PRN; Protocol PRN Reason: Hypoglycemia Protocol Stop: 11/26/20 10:14 Folic Acid 1 mg/ Syringe 10 mls @ 5 mls/min IV QAM [facility] Stop: 11/22/20 08:59 Last Admin: 10/29/20 07:59 Dose: 5 mls/min Documented by: Furosemide 40 mg/ Syringe 4 mls @ 4 mls/min IV DAILY [facility] Stop: 11/22/20 08:59 Last Admin: 10/23/20 08:36 Dose: 4 mls/min Documented by: Norepinephrine Bitartrate (Levophed/D5w) 8 mg in 508 mls @ 23.089 mls/hr IV .[id number] [facility]; Protocol Stop: 11/23/20 23:44 Last Titration: 10/28/20 22:30 Dose: 0 mcg/kg/min, 0 mls/hr Documented by: Pantoprazole Sodium 40 mg/ (Syringe) 10 mls @ 5 mls/min IV DAILY@1100 [place] Stop: 11/24/20 10:59 Last Admin: 10/28/20 11:41 Dose: 5 mls/min Documented by: Heparin Sodium/Dextrose (Heparin Sodium/Dextrose) 25,000 units in 500 mls @ 27 mls/hr IV .[id number] [facility]; Protocol Stop: 11/24/20 13:29 Last Titration: 10/29/20 07:10 Dose: 1,350 units/hr, 27 mls/hr Documented by: Acetaminophen (Ofirmev) 1,000 mg in 100 mls @ 400 mls/hr IV Q8H PRN PRN Reason: Fever Stop: 10/30/20 09:26 Last Infusion: 10/28/20 17:30 Dose: Infused Documented by: Thiamine HCl 200 mg/ Sodium (Chloride) 52 mls @ 208 mls/hr IV BID [facility] Stop: 11/26/20 10:59 Last Admin: 10/29/20 07:59 Dose: 208 mls/hr Documented by: Propofol (Diprivan) 1,000 mg in 100 mls @ 0 mls/hr IV .Q0M [facility]; Protocol Stop: 11/01/20 00:14 Last Admin: 10/29/20 07:52 Dose: 20 mcg/kg/min, 16.3 mls/hr Documented by: Potassium Phosphate 21 mmol/ (Sodium Chloride) 507 mls @ 88 mls/hr IV NOW ONE Stop: 10/29/20 13:30 Last Admin: 10/29/20 07:59 Dose: 88 mls/hr Documented by: Insulin Aspart (Insulin Aspart 100 Units/Ml 3 Ml Pen) 0 units SC Q6 [facility] Stop: 11/26/20 11:59 Last Admin: 10/29/20 06:06 Dose: Not Given Documented by: Metoprolol Tartrate (Metoprolol Tartrate 1 Mg/Ml Vial) 5 mg IV Q4H PRN PRN Reason: Tachycardia >100 Stop: 11/27/20 14:46 Last Admin: 10/29/20 07:50 Dose: 5 mg Documented by: Miscellaneous (Carbohydrates For Hypoglycemia ) 15 - 30 gm PO UD PRN PRN Reason: Hypoglycemia Treatment Stop: 11/26/20 10:14 Nitroglycerin (Nitroglycerin Sl 0.4 Mg/Tab Tab) 0.4 mg SL UD PRN PRN Reason: Chest Pain Stop: 11/22/20 01:12 Nutritional Formula (Peptamen Intense Vhp 1.0 Blaze 1,000 Ml Bag) 1,000 ml OG UD [facility]; Protocol Stop: 11/27/20 10:29 Last Admin: 10/28/20 11:21 Dose: 1,000 ml Documented by: Propofol (Propofol Bolus From Bag) 20 mg IV Q5M PRN PRN Reason: Sedation Stop: 11/01/20 00:05 Last Admin: 10/29/20 00:15 Dose: 20 mg Documented by: Resident Activity Tracking Resident Involvement: Resident Care Provided Care Provided: Adult Hospital Medicine (1) Pneumonia Laterality: right Lung location: lower lobe of lung Pneumonia type: due to unspecified organism Qualified Code(s): J18.9 - Pneumonia, unspecified organism
[2020-10-29] MEDS: FUROSEMIDE 40 MG in SYRINGE 0 ML IV SCH (11:19)
[2020-10-29] MEDS: METOPROLOL TARTRATE 25 MG TAB PO SCH ×3 (11:20→21:44)
[2020-10-29] MEDS: PANTOprazole 40 MG in SYRINGE 0 ML IV SCH (11:21)
--- NOTE | 2020-10-29 11:36 | Cardiology Consultation ---
Date of Consultation October 29, 2020 Assessment & Plan (1) Cardiac arrest: Event appears to be loss of pulse and pressure in the presence of intact rhythm likely multifactorial in etiology given multiple underlying morbidities and need for sedation. Patient does have risk factors for ischemic heart disease as well as potential tachybradycardia arrhythmias superimposed on underlying issues as below. Patient initially not anticoagulated due to multiple risk issues. Cerebrovascular embolic event not excluded as well. Patient is still ventilatory dependent with only limited neurologic recovery so far. Labile heart response to any physical stressors Recommendations: Agree with addition of oral metoprolol. No overt bleeding issues though hemoglobin trending slightly lower. We will follow with continued IV anticoagulation consider change to alternative therapies however poor candidate for subcu Lovenox at therapeutic dose Agree with continued supportive care (2) Atrial flutter with rapid ventricular response: Currently in atrial fibrillation with rapid response rates 90-1 20 (3) Elevated troponin: (4) Obesity (BMI 30-39.9): (5) Chronic diastolic heart failure: (6) Acute on chronic renal failure: History of Present Illness Attending Physician: Brandee Zhao MD History of Present Illness Patient was seen and examined, chart, medications, telemetry reviewed. Little change from day prior except slightly more spontaneous movement, nonpurposeful Not tolerating attempts at ventilatory weaning Atrial fibrillation still with variable ventricular response rate, elevated with any physical stress or respiratory stress Allergies Allergy/AdvReac Type Severity Reaction Status Date / Time No Known Allergies Allergy Verified 10/22/20 23:24 Home Medications Medication Instructions Recorded Confirmed Type paroxetine HCl [Paxil] 40 mg PO DAILY 04/15/20 10/22/20 History ferrous sulfate 325 mg PO QAM #30 tab 10/09/20 10/22/20 Rx metoprolol tartrate 12.5 mg PO BID 30 Days #30 tab 10/09/20 10/22/20 Rx omeprazole 20 mg PO DAILY #30 cap 10/09/20 10/22/20 Rx Patient History Medical History Alcohol abuse Anemia Atrial flutter with rapid ventricular response BPH (benign prostatic hypertrophy) Depression Depression Diabetes mellitus type 2 in obese Gout History of cholesteatoma s/p radical mastoid 1991 [facility] [place] HTN (hypertension) Hyperlipidemia Obesity (BMI 30-39.9) LAUREN on CPAP Paroxysmal atrial flutter Unspecified asthma Surgical History History of tympanoplasty S/P colonoscopy last 2016 hyperplastic polyp S/P tonsillectomy Status post surgical manipulation of ankle joint "L ankle fusion " Family History Father , 40s Myocardial infarction Social History Smoking Status: Never smoker Number of Years Since Quit: 30; Second Hand Exposure: No; Hx Alcohol Use: Yes Alcohol type: beer Alcohol Intake Frequency Comment: daily - 6 betsey beers, last drink 10/07 Hx Substance Use: No Preferred Language: Mohawk Communication Ability: Effective Competitive Intelligence Analyst Required: No Beliefs That Will Affect Care: None Current Living Situation: Alone Feels Safe at Home: Yes Safety Concerns: Feels Safe At This Time Assistive Devices: Oxygen - Continuous Review of Systems Review of Systems: Unobtainable due to endotracheal tube Physical Exam Constitutional: + morbidly obese and + mechanically ventilated Eyes: + fixed pupils (Secondary to medical therapy) ENMT: Ears: no external ear abnormality Nose: no external nose abnormality Mouth: + oropharynx abnormality (Endotracheal tube in place) Neck: trachea midline, no thyromegaly + thick neck Cardiovascular: Rate/Rhythm: + irregularly irregular Heart Sounds: normal S1 and normal S2; no gallop Vessels: normal carotid upstroke and radial pulses present Extremities: + edema (1-2+ with chronic indurated stasis changes) Gastrointestinal (Abdomen): Percussion/Palpation: abdomen soft Mild dist ention Musculoskeletal: no cyanosis or clubbing, extremities motor strength 5/5 Skin: no rashes, warm and dry + induration (And chronic excoriation of the lower extremities) Neurologic: Sluggish response of pupils to light possibly medication accentuated Results & Data ([facility]) Vital Signs (Past 12 Hours) Vital Signs Temp Pulse Resp BP Pulse Ox 10/29/20 10:30 37.5 C 100 H 96 10/29/20 10:26 37.5 C 100 H 105/64 96 10/29/20 10:11 37.6 C H 100 H 105/63 96 10/29/20 10:00 37.6 C H 100 H 95 10/29/20 09:56 37.6 C H 108 H 102/59 L 95 10/29/20 09:41 37.7 C H 113 H 96/65 L 95 10/29/20 09:30 37.7 C H 113 H 94 10/29/20 09:26 37.8 C H 113 H 100/63 95 10/29/20 09:11 37.9 C H 114 H 90/61 L 95 10/29/20 09:00 37.9 C H 114 H 94 10/29/20 08:56 37.9 C H 114 H 97/58 L 94 10/29/20 08:41 38.0 C H 114 H 87/58 L 94 10/29/20 08:30 38.1 C H 114 H 94 10/29/20 08:26 38.1 C H 114 H 92/58 L 95 10/29/20 08:11 38.1 C H 118 H 110/74 95 10/29/20 08:00 38.1 C H 115 H 94 10/29/20 07:56 38.0 C H 108 H 128/63 92 10/29/20 07:50 150 H 185/100 H 10/29/20 07:40 37.8 C H 163 H 130/100 90 10/29/20 07:30 37.6 C H 128 H 96 10/29/20 07:27 37.6 C H 136 H 130/100 92 10/29/20 07:15 126 H 27 H 93 10/29/20 07:11 37.4 C 154 H 184/147 H 82 L 10/29/20 07:00 37.3 C 130 H 76 L 10/29/20 06:00 37.3 C 98 H 100 10/29/20 05:11 37.2 C 100 H 96/62 L 100 10/29/20 04:11 37.1 C 76 106/68 100 10/29/20 04:07 18 10/29/20 03:35 77 20 100 10/29/20 03:11 37.1 C 81 100/62 99 10/29/20 02:11 37.2 C 84 105/65 99 10/29/20 01:11 37.4 C 92 H 98 10/29/20 00:11 37.4 C 109 H 124/71 96 10/28/20 23:45 73 20 100 Laboratory Results Laboratory Results - last 24 hr 10/28/20 10/28/20 10/29/20 11:23 17:58 00:04 WBC RBC Hgb POC Hgb Hct POC Hct MCV MCH MCHC RDW Std Deviation RDW Coeff of Noam Plt Count MPV Immature Gran % (Auto) Neut % (Auto) Lymph % (Auto) [place] % (Auto) Eos % (Auto) Baso % (Auto) Neut # (Auto) Lymph # (Auto) [place] # (Auto) Eos # (Auto) Baso # (Auto) Immature Gran # (Auto) APTT PTT Ratio Sample Site POC pH POC pCO2 POC pO2 POC HCO3 POC Total CO2 POC Base Excess ABG pH (Temp Correct) ABG pCO2 (Temp Corrct POC ABG pO2 at Pt Temp POC ABG O2 Sat Alex Test O2 Delivery Device POC O2 Rate Minute Ventilation POC FiO2 Tidal Volume PEEP POC Sodium Sodium POC Potassium Potassium Chloride Carbon Dioxide Anion Gap BUN Creatinine Est Cr Clr Drug Dosing Est GFR ( Amer) Est GFR (Non-Af Amer) BUN/Creatinine Ratio Glucose POC Glucose POC Glucose (other) 128 H 124 H 115 H Calcium Phosphorus Magnesium Procalcitonin 10/29/20 10/29/20 10/29/20 04:07 04:27 04:27 WBC 6.96 RBC 3.64 L Hgb 8.6 L POC Hgb 9.2 L Hct 27.5 L POC Hct 27 L MCV 75.5 L MCH 23.6 L MCHC 31.3 L RDW Std Deviation 46.6 H RDW Coeff of Noam 16.9 H Plt Count 143 MPV 11.0 H Immature Gran % (Auto) 0.6 Neut % (Auto) 69.8 Lymph % (Auto) 15.5 [place] % (Auto) 11.8 Eos % (Auto) 2.0 Baso % (Auto) 0.3 Neut # (Auto) 4.86 Lymph # (Auto) 1.08 L [place] # (Auto) 0.82 H Eos # (Auto) 0.14 Baso # (Auto) 0.02 Immature Gran # (Auto) 0.04 H APTT PTT Ratio Sample Site Art Line POC pH 7.50 H POC pCO2 31 L POC pO2 109 H POC HCO3 24 POC Total CO2 25 POC Base Excess 1.0 ABG pH (Temp Correct) 7.500 H ABG pCO2 (Temp Corrct 31 L POC ABG pO2 at Pt Temp 109 POC ABG O2 Sat 99.0 H Alex Test NA O2 Delivery Device Ventilator POC O2 Rate 20 Minute Ventilation 10 POC FiO2 30 Tidal Volume 500 PEEP 5 POC Sodium 135 Sodium 137 POC Potassium 3.4 Potassium 3.4 L Chloride 105 Carbon Dioxide 26 Anion Gap 6.0 BUN 29 H Creatinine 1.43 H D Est Cr Clr Drug Dosing 76.5 Est GFR ( Amer) 60.0 Est GFR (Non-Af Amer) 51.8 BUN/Creatinine Ratio 20.2 H Glucose 112 H POC Glucose POC Glucose (other) Calcium 8.0 L Phosphorus 1.8 L Magnesium 2.1 Procalcitonin 10/29/20 10/29/20 10/29/20 04:27 04:27 06:02 WBC RBC Hgb POC Hgb Hct POC Hct MCV MCH MCHC RDW Std Deviation RDW Coeff of Noam Plt Count MPV Immature Gran % (Auto) Neut % (Auto) Lymph % (Auto) [place] % (Auto) Eos % (Auto) Baso % (Auto) Neut # (Auto) Lymph # (Auto) [place] # (Auto) Eos # (Auto) Baso # (Auto) Immature Gran # (Auto) APTT 46.6 H* PTT Ratio 1.8 Sample Site POC pH POC pCO2 POC pO2 POC HCO3 POC Total CO2 POC Base Excess ABG pH (Temp Correct) ABG pCO2 (Temp Corrct POC ABG pO2 at Pt Temp POC ABG O2 Sat Alex Test O2 Delivery Device POC O2 Rate Minute Ventilation POC FiO2 Tidal Volume PEEP POC Sodium Sodium POC Potassium Potassium Chloride Carbon Dioxide Anion Gap BUN Creatinine Est Cr Clr Drug Dosing Est GFR ( Amer) Est GFR (Non-Af Amer) BUN/Creatinine Ratio Glucose POC Glucose POC Glucose (other) 116 H Calcium Phosphorus Magnesium Procalcitonin 0.73 H 10/29/20 11:33 WBC RBC Hgb POC Hgb Hct POC Hct MCV MCH MCHC RDW Std Deviation RDW Coeff of Noam Plt Count MPV Immature Gran % (Auto) Neut % (Auto) Lymph % (Auto) [place] % (Auto) Eos % (Auto) Baso % (Auto) Neut # (Auto) Lymph # (Auto) [place] # (Auto) Eos # (Auto) Baso # (Auto) Immature Gran # (Auto) APTT PTT Ratio Sample Site POC pH POC pCO2 POC pO2 POC HCO3 POC Total CO2 POC Base Excess ABG pH (Temp Correct) ABG pCO2 (Temp Corrct POC ABG pO2 at Pt Temp POC ABG O2 Sat Alex Test O2 Delivery Device POC O2 Rate Minute Ventilation POC FiO2 Tidal Volume PEEP POC Sodium Sodium POC Potassium Potassium Chloride Carbon Dioxide Anion Gap BUN Creatinine Est Cr Clr Drug Dosing Est GFR ( Amer) Est GFR (Non-Af Amer) BUN/Creatinine Ratio Glucose POC Glucose 137 H POC Glucose (other) Calcium Phosphorus Magnesium Procalcitonin
[2020-10-29] MEDS ORDERED: METOPROLOL TARTRATE 25 MG TAB PO SCH (12:00)
[2020-10-29] MEDS: HEPARIN SODIUM/DEXTROSE 25,000 UNITS/500 ML BAG IV SCH (13:08)
--- NOTE | 2020-10-29 15:40 | Billing Data ---
Date of Service October 29, 2020 Coding Level of Care Code 87842 Subseq Hosp Care Lvl 3
[2020-10-29] MEDS: FERROUS SULFATE 325 MG/7.4 ML UDP PO SCH (17:06)
--- NOTE | 2020-10-29 17:15 | Hospitalist Progress Note ---
Date of Service October 29, 2020 Assessment & Plan (1) Cardiac arrest: This is a 65-year-old male who presents with shortness of breath. Pt initially treated for CHF exacerbation, RLL PNA, Aflutter, poss. R foot cellulitis. Pt w/ hx of alcohol abuse (confirmed by pt and his family members), on etoh withdrawal protocol. Night of 10/24 - pt received ativan per etoh withdrawal protocol as he was found to be agitated. Soon after pt witnessed LOC and pulseless, code blue was called, CPR per nursing staff, ACLS protocol - epi x2, cardioversion for wide complex tachycardia, started on amiodarone, intubated by ER physician. S/P hypothermia protocol Sedated and Remained intubated on Vent support Cardiology on board Echo showed no regional wall motion abnormalities with preserved LV function Currently on Afib Continue monitor closely in ICU (2) Atrial fibrillation with rapid ventricular response: Currently on Afib Rate improved Continue metoprolol and heparin drip Cardiology on board (3) Pneumonia: (4) Shortness of breath: Respiratory failure CXR c/w Airspace consolidation is seen in the right lung base CTA chest showed no PE Mechanical ventilation management as per [employer] Procalcitonin elevated Blood cx negative Abx has been on hold since no source of infection Procalcitonin continue trending down (5) Acute diastolic (congestive) heart failure: (6) CHF (congestive heart failure): CXR today showed Cardiomegaly with pulmonary vascular congestion. Intubated on Mechanical vent suppport Continue IV lasix Monitor I/O Electrolytes imbalance Potassium 3.4 K replaced Monitor electrolytes Alcoholism Alcohol withdrawal Continue with IV thiamine, IV folic acid. On Propofol drip Continue monitor closely monitor Anemia. Hemoglobin 8.6 today Continue iron supplements. Recent hx of venous ulcer bleed. Continue monitor CBC Hypertension BP in the low side, will continue to hold lisinopril Continue low dose metoprolol . LAUREN on CPAP at bedtime. Now pt intubated. Psoriasis. Previously on Humira. DVT prophylaxis On IV heparin drip (Will need to monitor closely due to recent bleed (from venous ulcer) Disposition Continue monitor in The ICU (7) Hypokalemia: Admission and Anticipated Discharge Date Admission Date: October 23, 2020 Subjective Pt was seen and examined for follow up on Ventilation support Sedated with propofol on mechanical ventilation Nurse said that pt was having spontaneous movement Review of Systems Review of Systems: All systems reviewed & are unremarkable except as noted in Subjective Physical Exam Physical Exam: General- on Vent support Head- atraumatic Eyes- PERRL, EOMI, ENT- Intubated Neck- supple, no JVD Lungs- clear to auscultation Heart- regular rhythm; no murmur Abdomen- normal bowel sounds, soft Neuro-Sedated Skin- warm & dry Results & Data Results & Data ([facility]) Vital Signs (Past 12 Hours) Vital Signs Temp Pulse Resp BP Pulse Ox 10/29/20 14:45 87 18 93 10/29/20 13:00 37.0 C 96 H 96 10/29/20 12:56 37.0 C 98 H 99/62 L 95 10/29/20 12:41 37.1 C 98 H 93/57 L 92 10/29/20 12:30 37.0 C 106 H 98 10/29/20 12:27 37.1 C 108 H 114/79 77 L 10/29/20 12:11 37.1 C 100 H 103/61 96 10/29/20 12:00 37.1 C 105 H 96 10/29/20 11:56 37.2 C 100 H 96/62 L 96 10/29/20 11:41 37.2 C 106 H 112/64 96 10/29/20 11:30 37.3 C 108 H 95 10/29/20 11:26 37.3 C 108 H 105/65 96 10/29/20 11:11 37.4 C 104 H 104/64 95 10/29/20 11:00 37.4 C 100 H 96 10/29/20 10:56 37.4 C 100 H 107/63 95 10/29/20 10:50 100 H 18 96 10/29/20 10:41 37.5 C 100 H 102/64 96 10/29/20 10:30 37.5 C 100 H 96 10/29/20 10:26 37.5 C 100 H 105/64 96 10/29/20 10:11 37.6 C H 100 H 105/63 96 10/29/20 10:00 37.6 C H 100 H 95 10/29/20 09:56 37.6 C H 108 H 102/59 L 95 10/29/20 09:41 37.7 C H 113 H 96/65 L 95 10/29/20 09:30 37.7 C H 113 H 94 10/29/20 09:26 37.8 C H 113 H 100/63 95 10/29/20 09:11 37.9 C H 114 H 90/61 L 95 10/29/20 09:00 37.9 C H 114 H 94 10/29/20 08:56 37.9 C H 114 H 97/58 L 94 10/29/20 08:41 38.0 C H 114 H 87/58 L 94 10/29/20 08:30 38.1 C H 114 H 94 10/29/20 08:26 38.1 C H 114 H 92/58 L 95 10/29/20 08:11 38.1 C H 118 H 110/74 95 10/29/20 08:00 38.1 C H 115 H 94 10/29/20 07:56 38.0 C H 108 H 128/63 92 10/29/20 07:50 150 H 185/100 H 10/29/20 07:40 37.8 C H 163 H 130/100 90 10/29/20 07:30 37.6 C H 128 H 96 10/29/20 07:27 37.6 C H 136 H 130/100 92 10/29/20 07:15 126 H 27 H 93 10/29/20 07:11 37.4 C 154 H 184/147 H 82 L 10/29/20 07:00 37.3 C 130 H 76 L 10/29/20 06:00 37.3 C 98 H 100 (1) Pneumonia Laterality: right Lung location: lower lobe of lung Pneumonia type: due to unspecified organism Qualified Code(s): J18.9 - Pneumonia, unspecified organism
[2020-10-30] MEDS: ALBUT/IPRATROP 3MG/0.5MG NEB 3 ML VIAL NEB PRN (00:07)
[2020-10-30] MEDS: propofoL 1,000 MG/100 ML VIAL IV SCH ×2 (00:21→04:03)
[2020-10-30] MEDS: INSULIN ASPART 100 UNITS/ML 3 ML PEN SC SCH ×4 (00:23→18:06)
[2020-10-30 04:18] LABS: iSTAT Art Bld Gas pCO2 Correct 38 mmHg (35-46); iSTAT Art Bld Gas pH Corrected 7.447 (7.35-7.45); iSTAT Arterial Blood Gas HCO3 26 meg/L (19-24); iSTAT Arterial Blood Gas pCO2 36 mmHg (35-46); iSTAT Arterial Blood Gas pH 7.46 (7.35-7.45); iSTAT Arterial Blood Gas pO2 84 mmHg (80-95); iSTAT Arterial Blood Gas pO2 C 90; iSTAT Carbon Dioxide 27 mmol/L (24-31); iSTAT FiO2 30 %; iSTAT Hematocrit 25 % (42-52); iSTAT Hemoglobin 8.5 g/dl (14.0-18.0); iSTAT Potassium 3.7 mmol/L (3.3-5.0); iSTAT Site Art Line; iSTAT Sodium 137 mmol/L (135-144)
[2020-10-30 04:46] LABS: Basophils # (auto) 0.03 K/uL (0-0.2); Basophils % (auto) 0.6 %; Eosinophils # (auto) 0.18 K/uL (0-0.5); Eosinophils % (auto) 3.9 %; Hematocrit (blood only) 25.9 % (42-52); Hemoglobin 8.1 g/dL (14.0-18.0); Immature Granulocytes # (auto) 0.03 K/uL (0.00-0.02); Immature Granulocytes % (auto) 0.6 %; Lymphocytes # (auto) 0.92 K/uL (1.2-3.4); Lymphocytes % (auto) 19.9 %; Mean Corpuscular Hemoglobin 23.5 pg (25-34); Mean Corpuscular Hgb Conc 31.3 g/dL (32-36); Mean Corpuscular Volume 75.3 fL (80-100); Mean Platelet Volume 10.3 fL (7.4-10.4); Monocytes # (auto) 0.46 K/uL (0.11-0.59); Platelet Count 168 K/uL (130-400); RDW Coefficient of Variation 17.2 % (11.5-14.5); RDW Standard Deviation 47.2 fL (36.4-46.3); Red Blood Count 3.44 M/uL (4.7-6.1); White Blood Count 4.62 K/uL (4.8-10.8)
[2020-10-30 05:05] LABS: BUN Creatinine Ratio 17.7 (10-20); Calcium 8.3 mg/dl (8.5-10.1); Creatinine Clr Calc Pharmacy 85.4 ml/min; Est GFR (African American) 67.9; Est GFR (Non-African American) 58.6; Magnesium 2.1 mg/dl (1.8-2.4); Potassium 3.7 mmol/L (3.5-5.1)
[2020-10-30] MEDS: METOPROLOL TARTRATE 25 MG TAB PO SCH ×4 (06:20→22:34)
[2020-10-30 07:05] LABS: Partial Thromboplastin Ratio 1.5; Partial Thromboplastin Time 40.2 Seconds (21.0-31.0)
--- NOTE | 2020-10-30 07:19 | Critical Care Progress Note ---
Date of Service October 30, 2020 Assessment & Plan (1) Cardiac arrest: Reason critically ill: 65-year-old male status post in-hospital cardiac arrest with ROSC requiring close hemodynamic monitoring; continuing to have improved mentation s/p rewarming and extubation. Neuro: -[facility] ICU: unable to access -Alcohol abuse: -Will consider re-addition of alcohol withdrawal scale and Ativan based off of patient's symptoms -CT head demonstrating no acute intracranial abnormality -EEG demonstrating severe background suppression consistent with severe nonspecific encephalopathy -Currently >72-hour out from cardiac arrest Cardiac/Vascular: -In-hospital cardiac arrest with ROSC -Estimated downtime approximately 10 minutes -Completed TTM and rewarming protocol -Currently >72 hours out from cardiac arrest -A. fib with RVR -start Metoprolol 12.5mg q6h PO -temporary hold until improved mentation and able to swallow PO -Cardiology consulted -Continue heparin at this time -Echo demonstrated EF 60 to 65%, midseptal dyssynergy, no regional wall abnormalities -CXR this AM demonstrating increased pulmonary vascular congestion -continue lasix 40mg IV daily Respiratory: -Respiratory failure -Secondary to cardiac arrest, intubated during code -extubated today -LAUREN -previously on CPAP at night -CPAP at night GI/Nutrition: -Speech eval with swallow study 24hrs s/p extubation Renal/Lytes: -Acute kidney injury superimposed on chronic kidney disease -likely pre-renal in etiology -Electrolyte abnormalities -stable this AM, not requiring repletion -Continue to monitor daily and replete electrolytes as indicated : -Brock in place -Continue to monitor strict I's and O's ENDO: -History of type 2 diabetes -Continue management per ICU glycemic protocol -Sliding scale insulin available Skin: -Patient with psoriatic appearing plaques over bilateral lower extremities -No known history of medication usage for this -continue betamethasone cream BID HEME: -Hgb stable at 8.1 this a.m. -No signs acute blood loss at this time -MCV of 75 indicating microcytic anemia -blood work from 10/08 indicates iron deficiency at that time -continue PO iron once able to tolerate oral intake -Continue to monitor ID: -discontinue antibiotics at this time in the setting of no demonstrated source of infection -Blood cultures x4 with no growth to date -Sputum culture negative Lines/IV Access: -PIV x3 -remove Arterial line DVT Prophylaxis: -continue systemic heparin (2) Respiratory failure: (3) Acute on chronic renal failure: (4) Chronic diastolic heart failure: (5) Acute diastolic (congestive) heart failure: (6) Pneumonia: (7) Shortness of breath: (8) Depression: (9) Alcohol abuse: Admission and Anticipated Discharge Date Admission Date: October 23, 2020 Supervising Physician Co-Signing Physician Notes Patient seen and examined. Discussed on multidisciplinary rounds and with bedside ICU nurse as well as family practice resident. Agree with assessment plan as noted. The patient looked reasonably good on spontaneous breathing trial this morning is been extubated. He is oriented to person but not place or time. He is doing well from a respiratory standpoint and has been weaned down to 3 L nasal cannula. His cough is adequate. Will try and increase mobilization of the patient. Discontinue Brock catheter and increase activity to out of bed as tolerated. Will request PT OT and speech therapy consults for swallow evaluation. Hold medicines pending speech therapy evaluation. If he fails, will consider nasoenteric access. Holding his p.o. medications. Lopressor will be used in IV form every 2 hours given the patient's atrial fibrillation. We will continue systemic anticoagulation with heparin. If the patient remains off pressors and does well he can likely transfer out of the ICU within the next 24hours. I did discussed with case management. They are working on resources for the patient as this appears to be somewhat problematic and may be leading to some of his hospitalizations. Questions were answered for the patient's son to the best of my ability. He expressed understanding and is in agreement with the plan as outlined. Subjective Patient continuing to minimally follow commands, however improved from yesterday, spontaneous breathing trial demonstrated success. Trial of extubation at this time, given the improvement. Review of Systems Review of Systems: Unobtainable due to reduced consciousness Physical Exam Constitutional: + obese, + disheveled and + mechanically ventilated Eyes: + anicteric sclerae; no conjunctival abnormality and no scleral abnormality Respiratory: symmetric chest movement; + abnormal respiratory effort Auscultation: + crackles (b/l lower lobes); no rales, no rhonchi and no wheezes Cardiovascular: Rate/Rhythm: + tachycardic and + irregularly irregular Heart Sounds: no gallop, no murmur and no cardiac rub Vessels: no JVD Extremities: + pedal edema (2+ b/l lower extremities) Gastrointestinal (Abdomen): Inspection/Auscultation: abdomen normal to inspection and normal bowel sounds; abdomen not distended and no abdominal edema Skin: chronic appearing venous stasis changes to b/l lower extremitities, and psoriatic-plaques over b/l lower extremities Neurologic: opens eyes to verbal stimuli, moves all extremities spontaneously, intermittently following commands off sedation Psychiatric: Orientation: alert, oriented to person and cooperative; + not oriented to place and + not oriented to time Apperance: + disheveled Results & Data Results & Data ([facility]) Vital Signs (Past 12 Hours) Vital Signs Temp Pulse Resp BP Pulse Ox 10/30/20 03:56 77 22 100 10/30/20 00:33 37.9 C H 95 H 99/64 L 96 10/30/20 00:30 37.9 C H 95 H 96 10/30/20 00:00 37.8 C H 101 H 95 10/29/20 23:50 95 H 19 96 10/29/20 23:33 37.9 C H 90 100/62 96 10/29/20 23:30 37.9 C H 92 H 96 10/29/20 23:00 37.9 C H 96 H 95 10/29/20 22:33 37.9 C H 109 H 105/59 L 94 10/29/20 22:30 37.8 C H 99 H 93 10/29/20 22:00 37.7 C H 94 H 95 10/29/20 21:33 37.6 C H 94 H 97/62 L 97 10/29/20 21:30 37.6 C H 94 H 94 10/29/20 21:00 37.5 C 99 H 84 L 10/29/20 20:34 37.4 C 96 H 92 10/29/20 20:33 37.4 C 99 H 99/56 L 93 10/29/20 20:30 37.3 C 99 H 96 10/29/20 20:05 92 H 10/29/20 20:00 37.3 C 86 94 10/29/20 19:30 37.3 C 89 96 10/29/20 19:27 37.3 C 90 95/58 L 95 Laboratory Results 10/30/20 10/30/20 10/30/20 Range/Units 06:46 06:07 04:35 WBC (4.8-10.8) K/uL RBC (4.7-6.1) M/uL Hgb (14.0-18.0) g/dL POC Hgb (14.0-18.0) g/dl Hct (42-52) % POC Hct (42-52) % MCV (80-100) fL MCH (25-34) pg MCHC (32-36) g/dL RDW Std Deviation (36.4-46.3) fL RDW Coeff of Noam (11.5-14.5) % Plt Count (130-400) K/uL MPV (7.4-10.4) fL Immature Gran % (Auto) % Neut % (Auto) % Lymph % (Auto) % Bollinger % (Auto) % Eos % (Auto) % Baso % (Auto) % Neut # (Auto) (1.4-6.5) K/uL Lymph # (Auto) (1.2-3.4) K/uL Bollinger # (Auto) (0.11-0.59) K/uL Eos # (Auto) (0-0.5) K/uL Baso # (Auto) (0-0.2) K/uL Immature Gran # (Auto) (0.00-0.02) K/uL APTT 40.2 H (21.0-31.0) Seconds PTT Ratio 1.5 Sample Site POC pH (7.35-7.45) POC pCO2 (35-46) mmHg POC pO2 (80-95) mmHg POC HCO3 (19-24) suellen/L POC Total CO2 (24-31) mmol/L POC Base Excess (-9-1.8) suellen/L ABG pH (Temp Correct) (7.35-7.45) ABG pCO2 (Temp Corrct (35-46) mmHg POC ABG pO2 at Pt Temp POC ABG O2 Sat (90-95) % Alex Test O2 Delivery Device POC O2 Rate Minute Ventilation POC FiO2 % Tidal Volume PEEP POC Sodium (135-144) mmol/L Sodium 138 (136-145) mmol/L POC Potassium (3.3-5.0) mmol/L Potassium 3.7 (3.5-5.1) mmol/L Chloride 105 (98-107) mmol/L Carbon Dioxide 27 (21-32) mmol/L Anion Gap 6.0 (3-11) BUN 23 H (7-18) mg/dl Creatinine 1.29 (0.6-1.4) mg/dl Est Cr Clr Drug Dosing 85.4 ml/min Est GFR ( Amer) 67.9 Est GFR (Non-Af Amer) 58.6 BUN/Creatinine Ratio 17.7 (10-20) Glucose 111 H (70-99) mg/dl POC Glucose 129 H (70-99) mg/dl POC Glucose (other) (70-99) mg/dl Calcium 8.3 L (8.5-10.1) mg/dl Phosphorus 3.0 D (2.5-4.9) mg/dl Magnesium 2.1 (1.8-2.4) mg/dl 10/30/20 10/30/20 10/30/20 Range/Units 04:35 03:55 00:15 WBC 4.62 L (4.8-10.8) K/uL RBC 3.44 L (4.7-6.1) M/uL Hgb 8.1 L (14.0-18.0) g/dL POC Hgb 8.5 L (14.0-18.0) g/dl Hct 25.9 L (42-52) % POC Hct 25 L (42-52) % MCV 75.3 L (80-100) fL MCH 23.5 L (25-34) pg MCHC 31.3 L (32-36) g/dL RDW Std Deviation 47.2 H (36.4-46.3) fL RDW Coeff of Noam 17.2 H (11.5-14.5) % Plt Count 168 (130-400) K/uL MPV 10.3 (7.4-10.4) fL Immature Gran % (Auto) 0.6 % Neut % (Auto) 65.0 % Lymph % (Auto) 19.9 % Bollinger % (Auto) 10.0 % Eos % (Auto) 3.9 % Baso % (Auto) 0.6 % Neut # (Auto) 3.00 (1.4-6.5) K/uL Lymph # (Auto) 0.92 L (1.2-3.4) K/uL Bollinger # (Auto) 0.46 (0.11-0.59) K/uL Eos # (Auto) 0.18 (0-0.5) K/uL Baso # (Auto) 0.03 (0-0.2) K/uL Immature Gran # (Auto) 0.03 H (0.00-0.02) K/uL APTT (21.0-31.0) Seconds PTT Ratio Sample Site Art Line POC pH 7.46 H (7.35-7.45) POC pCO2 36 (35-46) mmHg POC pO2 84 (80-95) mmHg POC HCO3 26 H (19-24) suellen/L POC Total CO2 27 (24-31) mmol/L POC Base Excess 2.0 H (-9-1.8) suellen/L ABG pH (Temp Correct) 7.447 (7.35-7.45) ABG pCO2 (Temp Corrct 38 (35-46) mmHg POC ABG pO2 at Pt Temp 90 POC ABG O2 Sat 97.0 H (90-95) % Alex Test NA O2 Delivery Device Ventilator POC O2 Rate 18 Minute Ventilation 9.0 POC FiO2 30 % Tidal Volume 500 PEEP 5 POC Sodium 137 (135-144) mmol/L Sodium (136-145) mmol/L POC Potassium 3.7 (3.3-5.0) mmol/L Potassium (3.5-5.1) mmol/L Chloride (98-107) mmol/L Carbon Dioxide (21-32) mmol/L Anion Gap (3-11) BUN (7-18) mg/dl Creatinine (0.6-1.4) mg/dl Est Cr Clr Drug Dosing ml/min Est GFR ( Amer) Est GFR (Non-Af Amer) BUN/Creatinine Ratio (10-20) Glucose (70-99) mg/dl POC Glucose 147 H (70-99) mg/dl POC Glucose (other) (70-99) mg/dl Calcium (8.5-10.1) mg/dl Phosphorus (2.5-4.9) mg/dl Magnesium (1.8-2.4) mg/dl 10/29/20 10/29/20 10/28/20 Range/Units 17:02 11:33 17:58 WBC (4.8-10.8) K/uL RBC (4.7-6.1) M/uL Hgb (14.0-18.0) g/dL POC Hgb (14.0-18.0) g/dl Hct (42-52) % POC Hct (42-52) % MCV (80-100) fL MCH (25-34) pg MCHC (32-36) g/dL RDW Std Deviation (36.4-46.3) fL RDW Coeff of Noam (11.5-14.5) % Plt Count (130-400) K/uL MPV (7.4-10.4) fL Immature Gran % (Auto) % Neut % (Auto) % Lymph % (Auto) % Bollinger % (Auto) % Eos % (Auto) % Baso % (Auto) % Neut # (Auto) (1.4-6.5) K/uL Lymph # (Auto) (1.2-3.4) K/uL Bollinger # (Auto) (0.11-0.59) K/uL Eos # (Auto) (0-0.5) K/uL Baso # (Auto) (0-0.2) K/uL Immature Gran # (Auto) (0.00-0.02) K/uL APTT (21.0-31.0) Seconds PTT Ratio Sample Site POC pH (7.35-7.45) POC pCO2 (35-46) mmHg POC pO2 (80-95) mmHg POC HCO3 (19-24) suellen/L POC Total CO2 (24-31) mmol/L POC Base Excess (-9-1.8) suellen/L ABG pH (Temp Correct) (7.35-7.45) ABG pCO2 (Temp Corrct (35-46) mmHg POC ABG pO2 at Pt Temp POC ABG O2 Sat (90-95) % Alex Test O2 Delivery Device POC O2 Rate Minute Ventilation POC FiO2 % Tidal Volume PEEP POC Sodium (135-144) mmol/L Sodium (136-145) mmol/L POC Potassium (3.3-5.0) mmol/L Potassium (3.5-5.1) mmol/L Chloride (98-107) mmol/L Carbon Dioxide (21-32) mmol/L Anion Gap (3-11) BUN (7-18) mg/dl Creatinine (0.6-1.4) mg/dl Est Cr Clr Drug Dosing ml/min Est GFR ( Amer) Est GFR (Non-Af Amer) BUN/Creatinine Ratio (10-20) Glucose (70-99) mg/dl POC Glucose 130 H 137 H (70-99) mg/dl POC Glucose (other) 124 H (70-99) mg/dl Calcium (8.5-10.1) mg/dl Phosphorus (2.5-4.9) mg/dl Magnesium (1.8-2.4) mg/dl 10/28/20 Range/Units 11:23 WBC (4.8-10.8) K/uL RBC (4.7-6.1) M/uL Hgb (14.0-18.0) g/dL POC Hgb (14.0-18.0) g/dl Hct (42-52) % POC Hct (42-52) % MCV (80-100) fL MCH (25-34) pg MCHC (32-36) g/dL RDW Std Deviation (36.4-46.3) fL RDW Coeff of Noam (11.5-14.5) % Plt Count (130-400) K/uL MPV (7.4-10.4) fL Immature Gran % (Auto) % Neut % (Auto) % Lymph % (Auto) % Bollinger % (Auto) % Eos % (Auto) % Baso % (Auto) % Neut # (Auto) (1.4-6.5) K/uL Lymph # (Auto) (1.2-3.4) K/uL Bollinger # (Auto) (0.11-0.59) K/uL Eos # (Auto) (0-0.5) K/uL Baso # (Auto) (0-0.2) K/uL Immature Gran # (Auto) (0.00-0.02) K/uL APTT (21.0-31.0) Seconds PTT Ratio Sample Site POC pH (7.35-7.45) POC pCO2 (35-46) mmHg POC pO2 (80-95) mmHg POC HCO3 (19-24) suellen/L POC Total CO2 (24-31) mmol/L POC Base Excess (-9-1.8) suellen/L ABG pH (Temp Correct) (7.35-7.45) ABG pCO2 (Temp Corrct (35-46) mmHg POC ABG pO2 at Pt Temp POC ABG O2 Sat (90-95) % Alex Test O2 Delivery Device POC O2 Rate Minute Ventilation POC FiO2 % Tidal Volume PEEP POC Sodium (135-144) mmol/L Sodium (136-145) mmol/L POC Potassium (3.3-5.0) mmol/L Potassium (3.5-5.1) mmol/L Chloride (98-107) mmol/L Carbon Dioxide (21-32) mmol/L Anion Gap (3-11) BUN (7-18) mg/dl Creatinine (0.6-1.4) mg/dl Est Cr Clr Drug Dosing ml/min Est GFR ( Amer) Est GFR (Non-Af Amer) BUN/Creatinine Ratio (10-20) Glucose (70-99) mg/dl POC Glucose (70-99) mg/dl POC Glucose (other) 128 H (70-99) mg/dl Calcium (8.5-10.1) mg/dl Phosphorus (2.5-4.9) mg/dl Magnesium (1.8-2.4) mg/dl Medications Administered Current Inpatient Medications Albuterol (Albut/Ipratrop 3mg/0.5mg Neb 3 Ml Vial) 3 ml NEB Q4R PRN PRN Reason: Shortness Of Breath Or Wheezing Stop: 11/26/20 10:59 Last Admin: 10/30/20 00:07 Dose: 3 ml Documented by: Betamethasone Dipropion Augmented (Betamethasone Dip Aug (Diprolene) 0.05% Cr 15 Gm Tube) 1 appln EXT BID [facility] Stop: 11/25/20 10:59 Last Admin: 10/29/20 21:44 Dose: 1 appln Documented by: Calcium Carbonate (Calcium Carbonate 1,250 Mg/5 Ml Udc) 1,250 mg PO BID [facility] Stop: 11/27/20 08:59 Last Admin: 10/29/20 21:43 Dose: 1,250 mg Documented by: Dextrose (Dextrose 50% 50 Ml Syringe) 25 - 50 ml IV UD PRN; Protocol PRN Reason: Hypoglycemia Protocol Stop: 11/26/20 10:14 Ferrous Sulfate (Ferrous Sulfate 325 Mg/7.4 Ml Udp) 325 mg PO BIDM [facility] Stop: 11/28/20 16:59 Last Admin: 10/29/20 17:06 Dose: 325 mg Documented by: Glucagon (Glucagon For Inj 1 Mg Vial) 1 mg IM UD PRN; Protocol PRN Reason: Hypoglycemia Protocol Stop: 11/26/20 10:14 Glucose (Glucose 40% Gel 15 Gm Tube) 15 - 30 gm PO UD PRN; Protocol PRN Reason: Hypoglycemia Protocol Stop: 11/26/20 10:14 Glucose (Glucose 10 Tabs/Tube) 4 - 8 tabs PO UD PRN; Protocol PRN Reason: Hypoglycemia Protocol Stop: 11/26/20 10:14 Folic Acid 1 mg/ Syringe 10 mls @ 5 mls/min IV QAM [facility] Stop: 11/22/20 08:59 Last Admin: 10/29/20 07:59 Dose: 5 mls/min Documented by: Furosemide 40 mg/ Syringe 4 mls @ 4 mls/min IV DAILY [facility] Stop: 11/22/20 08:59 Last Admin: 10/29/20 11:19 Dose: 4 mls/min Documented by: Pantoprazole Sodium 40 mg/ (Syringe) 10 mls @ 5 mls/min IV DAILY@1100 [facility] Stop: 11/24/20 10:59 Last Admin: 10/29/20 11:21 Dose: 5 mls/min Documented by: Heparin Sodium/Dextrose (Heparin Sodium/Dextrose) 25,000 units in 500 mls @ 29 mls/hr IV .[id number] [facility]; Protocol Stop: 11/24/20 13:29 Last Titration: 10/30/20 07:24 Dose: 1,450 units/hr, 29 mls/hr Documented by: Acetaminophen (Ofirmev) 1,000 mg in 100 mls @ 400 mls/hr IV Q8H PRN PRN Reason: Fever Stop: 10/30/20 09:26 Last Infusion: 10/28/20 17:30 Dose: Infused Documented by: Thiamine HCl 200 mg/ Sodium (Chloride) 52 mls @ 208 mls/hr IV BID [facility] Stop: 11/26/20 10:59 Last Admin: 10/29/20 21:43 Dose: 200 mls/hr Documented by: Propofol (Diprivan) 1,000 mg in 100 mls @ 20.37 mls/hr IV .Q4H55M [facility]; Protocol Stop: 11/01/20 00:14 Last Titration: 10/30/20 07:04 Dose: 25 mcg/kg/min, 20.4 mls/hr Documented by: Insulin Aspart (Insulin Aspart 100 Units/Ml 3 Ml Pen) 0 units SC Q6 [facility] Stop: 11/26/20 11:59 Last Admin: 10/30/20 06:22 Dose: 2 units Documented by: Metoprolol Tartrate (Metoprolol Tartrate 1 Mg/Ml Vial) 5 mg IV Q4H PRN PRN Reason: Tachycardia >100 Stop: 11/27/20 14:46 Last Admin: 10/29/20 07:50 Dose: 5 mg Documented by: Metoprolol Tartrate (Metoprolol Tartrate 25 Mg Tab) 12.5 mg PO Q6H [facility] Stop: 11/28/20 10:59 Last Admin: 10/30/20 06:20 Dose: 12.5 mg Documented by: Miscellaneous (Carbohydrates For Hypoglycemia ) 15 - 30 gm PO UD PRN PRN Reason: Hypoglycemia Treatment Stop: 11/26/20 10:14 Nutritional Formula (Peptamen Intense Vhp 1.0 Blaze 1,000 Ml Bag) 1,000 ml OG UD [facility]; Protocol Stop: 11/27/20 10:29 Last Admin: 10/28/20 11:21 Dose: 1,000 ml Documented by: Propofol (Propofol Bolus From Bag) 20 mg IV Q5M PRN PRN Reason: Sedation Stop: 11/01/20 00:05 Last Admin: 10/29/20 00:15 Dose: 20 mg Documented by: Resident Activity Tracking Resident Involvement: Resident Care Provided Care Provided: Adult Hospital Medicine (1) Pneumonia Laterality: right Lung location: lower lobe of lung Pneumonia type: due to unspecified organism Qualified Code(s): J18.9 - Pneumonia, unspecified organism
--- NOTE | 2020-10-30 07:45 | XRay Report ---
XR chest 1V portable CLINICAL HISTORY: Respiratory failure COMPARISON STUDY: 10/29/2020 FINDINGS: There is an endotracheal tube 35 mm above the braden. There is an enteric tube which passes into the stomach. The heart remains enlarged. There are suspected subpulmonic pleural effusions.. Th ere is stable mediastinal widening. There is stable pulmonary vascular congestion.[ IMPRESSION: Cardiomegaly, pulmonary vascular congestion, and subpulmonic pleural effusions similar to the prior study. ACT 112: Negative or not required by law. Electronically signed by: Alberto Polanco M.D. 10/30/2020 7:44 AM
[2020-10-30] MEDS: FERROUS SULFATE 325 MG/7.4 ML UDP PO SCH ×2 (09:03→17:25)
[2020-10-30] MEDS: FUROSEMIDE 40 MG in SYRINGE 0 ML IV SCH (09:03)
[2020-10-30] MEDS: CALCIUM CARBONATE 1,250 MG/5 ML UDC PO SCH ×2 (09:03→20:40)
[2020-10-30] MEDS: FOLIC ACID 1 MG in SYRINGE 9.8 ML IV SCH (09:03)
[2020-10-30] MEDS: BETAMETHASONE DIP AUG (DIPROLENE) 0.05% CR 15 GM TUBE EXT SCH ×2 (09:04→20:41)
[2020-10-30] MEDS: THIAMINE HCL 200 MG in SODIUM CHLORIDE 0.9% 50 ML IV SCH ×2 (09:05→20:39)
[2020-10-30] MEDS: ACETAMINOPHEN 1,000 MG/100 ML VIAL IV PRN (09:23)
[2020-10-30] MEDS: HEPARIN SODIUM/DEXTROSE 25,000 UNITS/500 ML BAG IV SCH (09:35)
--- NOTE | 2020-10-30 13:01 | Cardiology Progress Note ---
Date of Service October 30, 2020 Assessment & Plan (1) Cardiac arrest: Event appears to be loss of pulse and pressure in the presence of intact rhythm likely multifactorial in etiology given multiple underlying morbidities and need for sedation. Patient does have risk factors for ischemic heart disease as well as potential tachybradycardia arrhythmias superimposed on underlying issues as below. Patient initially not anticoagulated due to multiple risk issues. Cerebrovascular embolic event not excluded as well. Patient now extubated with slow neurologic improvement Remains in atrial fibrillation with uncontrolled heart rate response No acute worsening of diastolic heart failure at this time Recommendations: Continue IV heparin. If unable to take p.o. metoprolol would give scheduled dosing of metoprolol tartrate 5 mg IV every 4 hours. (2) Atrial flutter with rapid ventricular response: Currently in atrial fibrillation with rapid response rates 90-1 20 (3) Elevated troponin: (4) Obesity (BMI 30-39.9): (5) Chronic diastolic heart failure: (6) Acute on chronic renal failure: Admission and Anticipated Discharge Date Admission Date: October 23, 2020 Subjective Patient seen and examined, chart, medications, telemetry reviewed. Patient just briefly extubated at the time of examination. More alert today, more spontaneous movement and response to commands Physical Exam Constitutional: + morbidly obese ENMT: Ears: no external ear abnormality Nose: no external nose abnormality Mouth: + oropharynx abnormality (Endotracheal tube in place) Neck: trachea midline, no thyromegaly + thick neck Cardiovascular: Rate/Rhythm: + irregularly irregular Heart Sounds: normal S1 and normal S2; no gallop Vessels: normal carotid upstroke and radial pulses present Extremities: + edema (1-2+ with chronic indurated stasis changes) Gastrointestinal (Abdomen): Percussion/Palpation: abdomen soft Skin: no rashes, warm and dry + induration (And chronic excoriation of the lower extremities) Results & Data ([facility]) Vital Signs (Past 12 Hours) Vital Signs Temp Pulse Resp BP Pulse Ox 10/30/20 10:30 38.0 C H 113 H 93 10/30/20 09:33 38.2 C H 110 H 119/79 93 10/30/20 08:34 38.2 C H 111 H 142/78 H 10/30/20 08:30 38.2 C H 10/30/20 08:00 82 10/30/20 07:33 38.0 C H 88 99/61 L 95 10/30/20 07:22 92 H 24 94 10/30/20 07:20 80 18 94 10/30/20 03:56 77 22 100
--- NOTE | 2020-10-30 13:18 | Billing Data ---
Date of Service October 30, 2020 Coding Level of Care Code 29329 Subseq Hosp Care Lvl 3
[2020-10-30 13:35] LABS: Partial Thromboplastin Ratio 1.5; Partial Thromboplastin Time 39.9 Seconds (21.0-31.0)
[2020-10-30] MEDS ORDERED: LORazepam 1 MG/2 ML VIAL IV STA ×2 (14:27→21:25)
[2020-10-30] MEDS ORDERED: LORazepam 2 MG/4 ML VIAL ONE (14:30)
--- NOTE | 2020-10-30 17:21 | Hospitalist Progress Note ---
Date of Service October 30, 2020 Assessment & Plan (1) Cardiac arrest: This is a 65-year-old male who presents with shortness of breath. Pt initially treated for CHF exacerbation, RLL PNA, Aflutter, poss. R foot cellulitis. Pt w/ hx of alcohol abuse (confirmed by pt and his family members), on etoh withdrawal protocol. Night of 10/24 - pt received ativan per etoh withdrawal protocol as he was found to be agitated. Soon after pt witnessed LOC and pulseless, code blue was called, CPR per nursing staff, ACLS protocol - epi x2, cardioversion for wide complex tachycardia, started on amiodarone, intubated by ER physician. S/P hypothermia protocol S/P extubated today (10/30) Cardiology on board Echo showed no regional wall motion abnormalities with preserved LV function Currently on Afib Continue monitor closely in ICU (2) Atrial fibrillation with rapid ventricular response: Currently on Afib Rate improved Continue metoprolol and heparin drip Cardiology on board (3) Pneumonia: (4) Shortness of breath: Respiratory failure CXR c/w Airspace consolidation is seen in the right lung base CTA chest showed no PE Mechanical ventilation management as per [employer] Inspector Procalcitonin elevated Blood cx negative Abx has been on hold since no source of infection Procalcitonin continue trending down (5) Acute diastolic (congestive) heart failure: (6) CHF (congestive heart failure): CXR today showed Cardiomegaly with pulmonary vascular congestion. Intubated on Mechanical vent suppport Continue IV lasix Monitor I/O Electrolytes imbalance Potassium 3.4 K replaced Monitor electrolytes Alcoholism Alcohol withdrawal Continue with IV thiamine, IV folic acid. On Propofol drip Continue monitor closely monitor Anemia. Hemoglobin 8.6 today Continue iron supplements. Recent hx of venous ulcer bleed. Continue monitor CBC Hypertension BP in the low side, will continue to hold lisinopril Continue low dose metoprolol . LAUREN on CPAP at bedtime. Now pt intubated. Psoriasis. Previously on Humira. DVT prophylaxis On IV heparin drip (Will need to monitor closely due to recent bleed (from venous ulcer) Disposition Continue monitor in The ICU (7) Hypokalemia: Admission and Anticipated Discharge Date Admission Date: October 23, 2020 Subjective Pt was seen and examined for follow up respiratory distress Pt lying in bed with 1 to 1 sitter Pt was extubated today He was able to follow simple command He shook his head said that he ate every day Physical Exam Physical Exam: General- No acute distress Head- atraumatic Eyes- PERRL, EOMI, ENT- s/p extubation Neck- supple, no JVD Lungs- clear to auscultation Heart- regular rhythm; no murmur Abdomen- normal bowel sounds, soft Neuro-awake, follow simple command, moves all 4 extremities Skin- warm & dry Results & Data Results & Data ([facility]) Vital Signs (Past 12 Hours) Vital Signs Temp Pulse Resp BP Pulse Ox 10/30/20 10:30 38.0 C H 113 H 93 10/30/20 09:33 38.2 C H 110 H 119/79 93 10/30/20 08:34 38.2 C H 111 H 142/78 H 10/30/20 08:30 38.2 C H 10/30/20 08:00 82 10/30/20 07:33 38.0 C H 88 99/61 L 95 10/30/20 07:22 92 H 24 94 10/30/20 07:20 80 18 94 (1) Pneumonia Laterality: right Lung location: lower lobe of lung Pneumonia type: due to unspecified organism Qualified Code(s): J18.9 - Pneumonia, unspecified organism
[2020-10-30] MEDS: METOPROLOL TARTRATE 1 MG/ML VIAL IV SCH ×3 (17:54→22:32)
[2020-10-30] MEDS: ZIPRASIDONE 20 MG/ML SDV IM PRN (17:55)
[2020-10-30 20:47] LABS: Partial Thromboplastin Ratio 1.5; Partial Thromboplastin Time 40.2 Seconds (21.0-31.0)
[2020-10-31] MEDS: INSULIN ASPART 100 UNITS/ML 3 ML PEN SC SCH ×4 (00:03→18:29)
[2020-10-31] MEDS: METOPROLOL TARTRATE 1 MG/ML VIAL IV SCH ×6 (00:48→10:15)
[2020-10-31] MEDS: LORazepam 1 MG/2 ML VIAL IV PRN ×7 (00:49→23:52)
[2020-10-31] MEDS: HEPARIN SODIUM/DEXTROSE 25,000 UNITS/500 ML BAG IV SCH ×2 (02:38→18:24)
[2020-10-31 04:08] LABS: Basophils # (auto) 0.02 K/uL (0-0.2); Basophils % (auto) 0.3 %; Eosinophils # (auto) 0.21 K/uL (0-0.5); Hematocrit (blood only) 27.8 % (42-52); Hemoglobin 8.7 g/dL (14.0-18.0); Immature Granulocytes # (auto) 0.04 K/uL (0.00-0.02); Immature Granulocytes % (auto) 0.6 %; Lymphocytes # (auto) 0.91 K/uL (1.2-3.4); Lymphocytes % (auto) 13.1 %; Mean Corpuscular Hemoglobin 23.6 pg (25-34); Mean Corpuscular Hgb Conc 31.3 g/dL (32-36); Mean Corpuscular Volume 75.5 fL (80-100); Mean Platelet Volume 10.5 fL (7.4-10.4); Monocytes # (auto) 0.73 K/uL (0.11-0.59); Monocytes % (auto) 10.5 %; Neutrophils # (auto) 5.04 K/uL (1.4-6.5); Neutrophils % (auto) 72.5 %; Platelet Count 200 K/uL (130-400); RDW Standard Deviation 46.5 fL (36.4-46.3); Red Blood Count 3.68 M/uL (4.7-6.1); White Blood Count 6.95 K/uL (4.8-10.8)
[2020-10-31 04:22] LABS: Partial Thromboplastin Ratio 1.5; Partial Thromboplastin Time 40.4 Seconds (21.0-31.0)
[2020-10-31 04:31] LABS: Albumin Level 2.6 gm/dl (3.4-5.0); BUN Creatinine Ratio 14.5 (10-20); Calcium 8.9 mg/dl (8.5-10.1); Est GFR (African American) 69.9; Est GFR (Non-African American) 60.3; Magnesium 1.9 mg/dl (1.8-2.4); Potassium 3.7 mmol/L (3.5-5.1)
[2020-10-31 04:34] LABS: Albumin Globulin Ratio 0.6 (0.9-2); Bilirubin,Total 2.9 mg/dl (0.2-1); Globulin 4.6 gm/dl (2.5-4.0); Phosphorus 2.6 mg/dl (2.5-4.9); Total Protein 7.2 gm/dl (6.4-8.2)
[2020-10-31] MEDS: METOPROLOL TARTRATE 25 MG TAB PO SCH ×2 (04:49→10:09)
[2020-10-31] MEDS ORDERED: MAGNESIUM SULFATE / D5W 1 GM/100 ML BAG IV ONE (06:30)
[2020-10-31] MEDS: POTASSIUM CHLORIDE / WTR 10 MEQ/100 ML PLCT IV SCH ×2 (06:32→07:33)
--- NOTE | 2020-10-31 07:13 | Critical Care Progress Note ---
Date of Service October 31, 2020 Assessment & Plan (1) Cardiac arrest: Reason critically ill: 65-year-old male status post in-hospital cardiac arrest with ROSC requiring close hemodynamic monitoring; continuing to have improved mentation s/p rewarming and extubation. Neuro: -[facility] ICU: positive -Alcohol abuse: -initiation of AWSS active alcohol withdrawal protocol -1mg Ativan q6h, with PRN doses per protocol -addition of clonidine patch 0.1mg/24hr -Geodon 10mg Q12h PRN agitation -CT head demonstrating no acute intracranial abnormality -EEG demonstrating severe background suppression consistent with severe nonspecific encephalopathy Cardiac/Vascular: -In-hospital cardiac arrest with ROSC -Estimated downtime approximately 10 minutes -Completed TTM and rewarming protocol -Currently >72 hours out from cardiac arrest -A. fib with RVR -hold Metoprolol 12.5mg q6h PO -hold Lopressor 5mg IV Q2h until determination of clonidine patch effect on systemic hemodynamics -Continue heparin at this time -HTN -addition of clonidine patch 0.1mg/24hr -hold lopressor until delineation of clonidine effect -Echo demonstrated EF 60 to 65%, midseptal dyssynergy, no regional wall abnormalities -CXR this AM demonstrating increased pulmonary vascular congestion -continue lasix 40mg IV daily Respiratory: -LUAREN -previously on CPAP at night -CPAP at night/while asleep GI/Nutrition: -Speech eval following improved sedation Renal/Lytes: -Acute kidney injury superimposed on chronic kidney disease -likely pre-renal in etiology -Electrolyte abnormalities -repleted with 20meq KCl, and 1g Mag Sulfate -Continue to monitor daily and replete electrolytes as indicated : -Brock in place -Continue to monitor strict I's and O's ENDO: -History of type 2 diabetes -Continue management per ICU glycemic protocol -Sliding scale insulin available Skin: -Patient with psoriatic appearing plaques over bilateral lower extremities -No known history of medication usage for this -continue betamethasone cream BID HEME: -Hgb stable at 8.7 this a.m. -MCV consistently with microcytic anemia -blood work from 10/08 indicates iron deficiency -continue PO iron once able to tolerate oral intake -Continue to monitor ID: -discontinue antibiotics at this time in the setting of no demonstrated source of infection -Blood cultures x4 with no growth to date -Sputum culture negative Lines/IV Access: -PIV x1 DVT Prophylaxis: -continue systemic heparin (2) Respiratory failure: (3) Acute on chronic renal failure: (4) Chronic diastolic heart failure: (5) Acute diastolic (congestive) heart failure: (6) Pneumonia: (7) Shortness of breath: (8) Depression: (9) Alcohol abuse: Admission and Anticipated Discharge Date Admission Date: October 23, 2020 Supervising Physician Co-Signing Physician Notes Patient seen and examined. Discussed on multidisciplinary rounds and with bedside critical care nurse as well as with the family practice resident. Agree with assessment plan as noted. Increased agitation overnight requiring intermittent Ativan and Geodon. Unclear if this represents anoxic encephalopathy or potential late stage alcohol withdrawal. Will try clonidine patch and discontinue the Lopressor. This will offer benefit of potentially treating alcohol withdrawal as well as providing benefits with regards to the patient's elevated blood pressure. Continue CPAP when sleeping. The patient is been hemodynamically stable. He is not appropriate for swallow evaluation or PT OT evaluations currently. If his mental status improves, will try and reengage for those evaluations. If he is unable to maintain an appropriate affect to allow for assessment for feeding within the next 24 to 48 hours, we may need to consider enteric access however this would be complicated as the patient is pulling at L lines and would likely have to have some kind of restraint. Continue supportive care at this point time. Subjective Persistently agitated overnight and into this morning, with frequent episodes of incontinence and listlessness in the bed. Pulling on lines, and IV access. Requiring multiple rounds of ativan, and two rounds of Geodon in order to maintain appropriate patient safety. Bedside sitter started, but frequently unable to re-direct patient. Review of Systems Review of Systems: Unobtainable due to reduced consciousness Physical Exam Constitutional: + obese and + disheveled Eyes: + anicteric sclerae; no conjunctival abnormality and no scleral abnormality Respiratory: symmetric chest movement Auscultation: no rales, no rhonchi and no wheezes Cardiovascular: Rate/Rhythm: + tachycardic and + irregularly irregular Heart Sounds: no gallop, no murmur and no cardiac rub Vessels: no JVD Extremities: + pedal edema (2+ b/l lower extremities) Gastrointestinal (Abdomen): Inspection/Auscultation: abdomen normal to inspection and normal bowel sounds; abdomen not distended Neurologic: opens eyes to tactile stimuli, moves all extremities spontaneously, intermittently following commands Psychiatric: Orientation: alert; + not oriented x 3 and + uncooperative (restless in bed) Apperance: + disheveled Results & Data Results & Data ([facility]) Vital Signs (Past 12 Hours) Vital Signs Temp Pulse Resp BP Pulse Ox 10/31/20 06:24 87 126/85 10/31/20 05:00 98 H 90 10/31/20 04:38 90 94 10/31/20 04:37 88 129/75 10/31/20 04:33 96 H 129/75 98 10/31/20 04:30 88 95 10/31/20 04:00 36.2 C L 90 95 10/31/20 03:35 111 H 172/91 H 97 10/31/20 03:30 111 H 96 10/31/20 03:01 99 H 10/31/20 02:37 95 H 142/69 H 10/31/20 02:34 104 H 142/89 H 97 10/31/20 02:30 90 97 10/31/20 02:00 85 100 10/31/20 01:33 85 122/69 100 10/31/20 01:30 88 100 10/31/20 01:00 91 10/31/20 00:48 106 H 144/86 H 10/31/20 00:34 97 H 144/86 H 93 10/31/20 00:30 99 H 94 10/31/20 00:00 36.6 C 93 H 94 10/30/20 23:33 80 107/70 10/30/20 23:30 84 100 10/30/20 23:00 77 97 10/30/20 22:33 87 108/71 96 10/30/20 22:32 93 H 108/71 10/30/20 22:30 84 96 10/30/20 22:00 93 H 96 10/30/20 21:33 110 H 170/110 H 80 L 10/30/20 21:30 107 H 90 10/30/20 21:00 108 H 20 87 L 10/30/20 20:40 92 H 124/62 10/30/20 20:33 86 124/62 89 L 10/30/20 20:30 91 H 89 L 10/30/20 20:00 37.1 C 99 H 94 10/30/20 19:33 102 H 126/78 86 L 10/30/20 19:30 96 H 96 Laboratory Results 10/31/20 10/31/20 10/31/20 Range/Units 05:35 03:58 03:58 WBC 6.95 (4.8-10.8) K/uL RBC 3.68 L (4.7-6.1) M/uL Hgb 8.7 L (14.0-18.0) g/dL Hct 27.8 L (42-52) % MCV 75.5 L (80-100) fL MCH 23.6 L (25-34) pg MCHC 31.3 L (32-36) g/dL RDW Std Deviation 46.5 H (36.4-46.3) fL RDW Coeff of Noam 17.0 H (11.5-14.5) % Plt Count 200 (130-400) K/uL MPV 10.5 H (7.4-10.4) fL Immature Gran % (Auto) 0.6 % Neut % (Auto) 72.5 % Lymph % (Auto) 13.1 % Ellsworth % (Auto) 10.5 % Eos % (Auto) 3.0 % Baso % (Auto) 0.3 % Neut # (Auto) 5.04 (1.4-6.5) K/uL Lymph # (Auto) 0.91 L (1.2-3.4) K/uL Ellsworth # (Auto) 0.73 H (0.11-0.59) K/uL Eos # (Auto) 0.21 (0-0.5) K/uL Baso # (Auto) 0.02 (0-0.2) K/uL Immature Gran # (Auto) 0.04 H (0.00-0.02) K/uL APTT (21.0-31.0) Seconds PTT Ratio Sodium 140 (136-145) mmol/L Potassium 3.7 (3.5-5.1) mmol/L Chloride 107 (98-107) mmol/L Carbon Dioxide 27 (21-32) mmol/L Anion Gap 6.0 (3-11) BUN 18 (7-18) mg/dl Creatinine 1.26 (0.6-1.4) mg/dl Est Cr Clr Drug Dosing 89.0 ml/min Est GFR ( Amer) 69.9 Est GFR (Non-Af Amer) 60.3 BUN/Creatinine Ratio 14.5 (10-20) Glucose 117 H (70-99) mg/dl POC Glucose 118 H (70-99) mg/dl Calcium 8.9 (8.5-10.1) mg/dl Phosphorus 2.6 (2.5-4.9) mg/dl Magnesium 1.9 (1.8-2.4) mg/dl Total Bilirubin 2.9 H (0.2-1) mg/dl AST 56 H (15-37) U/L ALT 35 (12-78) U/L Alkaline Phosphatase 109 (45-117) U/L Total Protein 7.2 (6.4-8.2) gm/dl Albumin 2.6 L (3.4-5.0) gm/dl Globulin 4.6 H (2.5-4.0) gm/dl Albumin/Globulin Ratio 0.6 L (0.9-2) 10/31/20 10/30/20 10/30/20 Range/Units 03:58 23:52 20:05 WBC (4.8-10.8) K/uL RBC (4.7-6.1) M/uL Hgb (14.0-18.0) g/dL Hct (42-52) % MCV (80-100) fL MCH (25-34) pg MCHC (32-36) g/dL RDW Std Deviation (36.4-46.3) fL RDW Coeff of Noam (11.5-14.5) % Plt Count (130-400) K/uL MPV (7.4-10.4) fL Immature Gran % (Auto) % Neut % (Auto) % Lymph % (Auto) % Ellsworth % (Auto) % Eos % (Auto) % Baso % (Auto) % Neut # (Auto) (1.4-6.5) K/uL Lymph # (Auto) (1.2-3.4) K/uL Ellsworth # (Auto) (0.11-0.59) K/uL Eos # (Auto) (0-0.5) K/uL Baso # (Auto) (0-0.2) K/uL Immature Gran # (Auto) (0.00-0.02) K/uL APTT 40.4 H 40.2 H (21.0-31.0) Seconds PTT Ratio 1.5 1.5 Sodium (136-145) mmol/L Potassium (3.5-5.1) mmol/L Chloride (98-107) mmol/L Carbon Dioxide (21-32) mmol/L Anion Gap (3-11) BUN (7-18) mg/dl Creatinine (0.6-1.4) mg/dl Est Cr Clr Drug Dosing ml/min Est GFR ( Amer) Est GFR (Non-Af Amer) BUN/Creatinine Ratio (10-20) Glucose (70-99) mg/dl POC Glucose 110 H (70-99) mg/dl Calcium (8.5-10.1) mg/dl Phosphorus (2.5-4.9) mg/dl Magnesium (1.8-2.4) mg/dl Total Bilirubin (0.2-1) mg/dl AST (15-37) U/L ALT (12-78) U/L Alkaline Phosphatase (45-117) U/L Total Protein (6.4-8.2) gm/dl Albumin (3.4-5.0) gm/dl Globulin (2.5-4.0) gm/dl Albumin/Globulin Ratio (0.9-2) 10/30/20 10/30/20 10/30/20 Range/Units 17:46 13:18 11:31 WBC (4.8-10.8) K/uL RBC (4.7-6.1) M/uL Hgb (14.0-18.0) g/dL Hct (42-52) % MCV (80-100) fL MCH (25-34) pg MCHC (32-36) g/dL RDW Std Deviation (36.4-46.3) fL RDW Coeff of Noam (11.5-14.5) % Plt Count (130-400) K/uL MPV (7.4-10.4) fL Immature Gran % (Auto) % Neut % (Auto) % Lymph % (Auto) % Ellsworth % (Auto) % Eos % (Auto) % Baso % (Auto) % Neut # (Auto) (1.4-6.5) K/uL Lymph # (Auto) (1.2-3.4) K/uL Ellsworth # (Auto) (0.11-0.59) K/uL Eos # (Auto) (0-0.5) K/uL Baso # (Auto) (0-0.2) K/uL Immature Gran # (Auto) (0.00-0.02) K/uL APTT 39.9 H (21.0-31.0) Seconds PTT Ratio 1.5 Sodium (136-145) mmol/L Potassium (3.5-5.1) mmol/L Chloride (98-107) mmol/L Carbon Dioxide (21-32) mmol/L Anion Gap (3-11) BUN (7-18) mg/dl Creatinine (0.6-1.4) mg/dl Est Cr Clr Drug Dosing ml/min Est GFR ( Amer) Est GFR (Non-Af Amer) BUN/Creatinine Ratio (10-20) Glucose (70-99) mg/dl POC Glucose 125 H 146 H (70-99) mg/dl Calcium (8.5-10.1) mg/dl Phosphorus (2.5-4.9) mg/dl Magnesium (1.8-2.4) mg/dl Total Bilirubin (0.2-1) mg/dl AST (15-37) U/L ALT (12-78) U/L Alkaline Phosphatase (45-117) U/L Total Protein (6.4-8.2) gm/dl Albumin (3.4-5.0) gm/dl Globulin (2.5-4.0) gm/dl Albumin/Globulin Ratio (0.9-2) Medications Administered Current Inpatient Medications Albuterol (Albut/Ipratrop 3mg/0.5mg Neb 3 Ml Vial) 3 ml NEB Q4R PRN PRN Reason: Shortness Of Breath Or Wheezing Stop: 11/26/20 10:59 Last Admin: 10/30/20 00:07 Dose: 3 ml Documented by: Betamethasone Dipropion Augmented (Betamethasone Dip Aug (Diprolene) 0.05% Cr 15 Gm Tube) 1 appln EXT BID [place] Stop: 11/25/20 10:59 Last Admin: 10/31/20 07:34 Dose: 1 appln Documented by: Calcium Carbonate (Calcium Carbonate 1,250 Mg/5 Ml Udc) 1,250 mg PO BID [facility] Stop: 11/27/20 08:59 Last Admin: 10/30/20 20:40 Dose: Not Given Documented by: Dextrose (Dextrose 50% 50 Ml Syringe) 25 - 50 ml IV UD PRN; Protocol PRN Reason: Hypoglycemia Protocol Stop: 11/26/20 10:14 Ferrous Sulfate (Ferrous Sulfate 325 Mg/7.4 Ml Udp) 325 mg PO BIDM [facility] Stop: 11/28/20 16:59 Last Admin: 10/30/20 17:25 Dose: Not Given Documented by: Glucagon (Glucagon For Inj 1 Mg Vial) 1 mg IM UD PRN; Protocol PRN Reason: Hypoglycemia Protocol Stop: 11/26/20 10:14 Glucose (Glucose 40% Gel 15 Gm Tube) 15 - 30 gm PO UD PRN; Protocol PRN Reason: Hypoglycemia Protocol Stop: 11/26/20 10:14 Glucose (Glucose 10 Tabs/Tube) 4 - 8 tabs PO UD PRN; Protocol PRN Reason: Hypoglycemia Protocol Stop: 11/26/20 10:14 Folic Acid 1 mg/ Syringe 10 mls @ 5 mls/min IV QAM [facility] Stop: 11/22/20 08:59 Last Admin: 10/31/20 07:35 Dose: 5 mls/min Documented by: Furosemide 40 mg/ Syringe 4 mls @ 4 mls/min IV DAILY [facility] Stop: 11/22/20 08:59 Last Admin: 10/31/20 07:34 Dose: 4 mls/min Documented by: Heparin Sodium/Dextrose (Heparin Sodium/Dextrose) 25,000 units in 500 mls @ 35 mls/hr IV .[id number] [facility]; Protocol Stop: 11/24/20 13:29 Last Titration: 10/31/20 04:44 Dose: 1,750 units/hr, 35 mls/hr Documented by: Thiamine HCl 200 mg/ Sodium (Chloride) 52 mls @ 208 mls/hr IV BID [facility] Stop: 11/26/20 10:59 Last Admin: 10/31/20 07:34 Dose: 200 mls/hr Documented by: Lorazepam (Ativan) 1 mg in 2 mls @ 2 mls/min IV Q2H PRN PRN Reason: Agitation Stop: 11/30/20 00:23 Last Admin: 10/31/20 06:31 Dose: 2 mls/min Documented by: Potassium Chloride (K Jesus / Wtr) 10 meq in 100 mls @ 100 mls/hr IV Q1H [place] Stop: 10/31/20 08:29 Last Admin: 10/31/20 07:33 Dose: 100 mls/hr Documented by: Magnesium Sulfate/Dextrose (Magnesium Sulfate / D5w) 1 gm in 100 mls @ 50 mls/hr IV ONE ONE Stop: 10/31/20 08:29 Last Admin: 10/31/20 06:32 Dose: 50 mls/hr Documented by: Insulin Aspart (Insulin Aspart 100 Units/Ml 3 Ml Pen) 0 units SC Q6 [place] Stop: 11/26/20 11:59 Last Admin: 10/31/20 06:27 Dose: Not Given Documented by: Metoprolol Tartrate (Metoprolol Tartrate 25 Mg Tab) 12.5 mg PO Q6H [facility] Stop: 11/28/20 10:59 Last Admin: 10/31/20 04:49 Dose: Not Given Documented by: Metoprolol Tartrate (Metoprolol Tartrate 1 Mg/Ml Vial) 5 mg IV Q2H [facility] Stop: 11/29/20 17:29 Last Admin: 10/31/20 07:44 Dose: 5 mg Documented by: Miscellaneous (Carbohydrates For Hypoglycemia ) 15 - 30 gm PO UD PRN PRN Reason: Hypoglycemia Treatment Stop: 11/26/20 10:14 Ziprasidone (Ziprasidone 20 Mg/Ml Sdv) 10 mg IM BID PRN PRN Reason: Agitation Stop: 11/29/20 20:59 Last Admin: 10/31/20 07:58 Dose: 10 mg Documented by: Resident Activity Tracking Resident Involvement: Resident Care Provided Care Provided: Adult Hospital Medicine (1) Pneumonia Laterality: right Lung location: lower lobe of lung Pneumonia type: due to unspecified organism Qualified Code(s): J18.9 - Pneumonia, unspecified organism
[2020-10-31] MEDS: BETAMETHASONE DIP AUG (DIPROLENE) 0.05% CR 15 GM TUBE EXT SCH ×2 (07:34→21:00)
[2020-10-31] MEDS: THIAMINE HCL 200 MG in SODIUM CHLORIDE 0.9% 50 ML IV SCH ×2 (07:34→20:26)
[2020-10-31] MEDS: FUROSEMIDE 40 MG in SYRINGE 0 ML IV SCH (07:34)
[2020-10-31] MEDS: FOLIC ACID 1 MG in SYRINGE 9.8 ML IV SCH (07:35)
[2020-10-31] MEDS: ZIPRASIDONE 20 MG/ML SDV IM PRN ×2 (07:58→16:50)
[2020-10-31] MEDS: FERROUS SULFATE 325 MG/7.4 ML UDP PO SCH ×2 (08:51→16:08)
[2020-10-31] MEDS: CALCIUM CARBONATE 1,250 MG/5 ML UDC PO SCH ×2 (08:52→20:31)
[2020-10-31 09:23] LABS: iSTAT Allen Test Pass; iSTAT Art Bld Gas pCO2 Correct 37 mmHg (35-46); iSTAT Art Bld Gas pH Corrected 7.417 (7.35-7.45); iSTAT Arterial Blood Gas HCO3 24 meg/L (19-24); iSTAT Arterial Blood Gas pCO2 38 mmHg (35-46); iSTAT Arterial Blood Gas pH 7.42 (7.35-7.45); iSTAT Arterial Blood Gas pO2 74 mmHg (80-95); iSTAT Arterial Blood Gas pO2 C 73; iSTAT Carbon Dioxide 25 mmol/L (24-31); iSTAT Hematocrit 28 % (42-52); iSTAT Hemoglobin 9.5 g/dl (14.0-18.0); iSTAT Potassium 3.5 mmol/L (3.3-5.0); iSTAT Site L Radial; iSTAT Sodium 139 mmol/L (135-144)
[2020-10-31] MEDS ORDERED: LORazepam 3 MG/6 ML VIAL IV PRN (10:07)
[2020-10-31] MEDS ORDERED: ATIVAN IV ALCOHOL WITHDRAWL IV PRN (10:07)
[2020-10-31] MEDS ORDERED: cloNIDine HCL 0.1 MG/24 HR TRANSDERM SYS TD SCH (10:30)
[2020-10-31 10:52] LABS: Partial Thromboplastin Ratio 1.7; Partial Thromboplastin Time 44.1 Seconds (21.0-31.0)
--- NOTE | 2020-10-31 15:47 | Billing Data ---
Date of Service October 31, 2020 Coding Level of Care Code 40013 Subseq Hosp Care Lvl 3
[2020-10-31] MEDS ORDERED: CHECK CLONIDINE PATCH PLACEMENT SCH (16:00)
[2020-10-31] MEDS: CHECK CLONIDINE PATCH PLACEMENT SCH (16:08)
[2020-10-31] MEDS: LORazepam 1 MG/2 ML VIAL IV SCH ×2 (16:08→20:24)
--- NOTE | 2020-10-31 17:20 | Hospitalist Progress Note ---
Date of Service October 31, 2020 Assessment & Plan (1) Cardiac arrest: This is a 65-year-old male who presents with shortness of breath. Pt initially treated for CHF exacerbation, RLL PNA, Aflutter, poss. R foot cellulitis. Pt w/ hx of alcohol abuse (confirmed by pt and his family members), on etoh withdrawal protocol. Night of 10/24 - pt received ativan per etoh withdrawal protocol as he was found to be agitated. Soon after pt witnessed LOC and pulseless, code blue was called, CPR per nursing staff, ACLS protocol - epi x2, cardioversion for wide complex tachycardia, started on amiodarone, intubated by ER physician. S/P hypothermia protocol S/P extubated today (10/30) Cardiology on board Echo showed no regional wall motion abnormalities with preserved LV function Currently on Afib Continue monitor closely in ICU (2) Atrial fibrillation with rapid ventricular response: Currently on Afib Rate improved Continue metoprolol and heparin drip Cardiology on board (3) Pneumonia: (4) Shortness of breath: Respiratory failure CXR c/w Airspace consolidation is seen in the right lung base CTA chest showed no PE Mechanical ventilation management as per [facility] Procalcitonin elevated Blood cx negative Abx has been on hold since no source of infection Procalcitonin continue trending down (5) Acute diastolic (congestive) heart failure: (6) CHF (congestive heart failure): CXR today showed Cardiomegaly with pulmonary vascular congestion. Intubated on Mechanical vent suppport Continue IV lasix Monitor I/O Electrolytes imbalance Potassium 3.4 K replaced Monitor electrolytes Alcoholism Alcohol withdrawal Continue with IV thiamine, IV folic acid. Continue monitor closely monitor Continue to be agitated Anemia. Hemoglobin 8.7 today Continue iron supplements. Recent hx of venous ulcer bleed. Continue monitor CBC Hypertension BP in the low side, will continue to hold lisinopril Continue low dose metoprolol . LAUREN on CPAP at bedtime. Now pt intubated. Psoriasis. Previously on Humira. DVT prophylaxis On IV heparin drip (Will need to monitor closely due to recent bleed (from venous ulcer) Disposition Continue monitor in The ICU (7) Hypokalemia: Admission and Anticipated Discharge Date Admission Date: October 23, 2020 Subjective Pt was seen and examined Lying in bed with no distress very restlessness He has been having episodes of agitation where he required medication brother said that he drink a lot of alcohol daily Denies any chest pain, palpitation, dizziness and SOB Physical Exam Physical Exam: General- restlessness Head- atraumatic Eyes- PERRL, EOMI, ENT- s/p extubation Neck- supple, no JVD Lungs- clear to auscultation Heart- regular rhythm; no murmur Abdomen- normal bowel sounds, soft Neuro-awake,moves all 4 extremities Skin- warm & dry Results & Data Results & Data ([facility]) Vital Signs (Past 12 Hours) Vital Signs Temp Pulse Resp BP Pulse Ox 10/31/20 15:55 77 17 100 10/31/20 14:33 81 23 111/64 100 10/31/20 14:20 81 24 103/67 98 10/31/20 14:00 77 23 97 10/31/20 13:33 75 21 103/67 10/31/20 13:00 77 24 96 10/31/20 12:33 80 25 H 114/63 96 10/31/20 12:00 74 24 97 10/31/20 11:33 83 23 113/66 97 10/31/20 11:15 85 27 H 98 10/31/20 11:14 34 L 20 102/63 99 10/31/20 11:03 68 27 H 97 10/31/20 11:00 64 28 H 95 10/31/20 10:33 80 25 H 115/63 99 10/31/20 10:30 73 28 H 97 10/31/20 10:11 74 20 106/64 95 10/31/20 10:00 79 35 H 99 10/31/20 09:33 93 H 30 H 106/67 94 10/31/20 09:30 94 H 34 H 93 10/31/20 09:13 103 H 32 H 93 10/31/20 09:00 81 24 92 10/31/20 08:34 160/93 H 10/31/20 08:00 36.6 C 10/31/20 07:45 129 H 10/31/20 07:44 105 H 190/100 H 10/31/20 07:34 116 H 90 10/31/20 07:00 93 H 93 10/31/20 06:24 87 126/85 (1) Pneumonia Laterality: right Lung location: lower lobe of lung Pneumonia type: due to unspecified organism Qualified Code(s): J18.9 - Pneumonia, unspecified organism
[2020-10-31 19:24] LABS: Partial Thromboplastin Ratio 1.7; Partial Thromboplastin Time 44.8 Seconds (21.0-31.0)
[2020-11-01] MEDS: CHECK CLONIDINE PATCH PLACEMENT SCH ×3 (00:20→16:11)
[2020-11-01] MEDS: INSULIN ASPART 100 UNITS/ML 3 ML PEN SC SCH ×4 (00:20→17:53)
[2020-11-01 02:12] LABS: Partial Thromboplastin Time 52.9 Seconds (21.0-31.0)
[2020-11-01] MEDS: LORazepam 1 MG/2 ML VIAL IV SCH ×4 (03:56→20:50)
[2020-11-01 05:15] LABS: Basophils # (auto) 0.04 K/uL (0-0.2); Basophils % (auto) 0.6 %; Eosinophils # (auto) 0.15 K/uL (0-0.5); Eosinophils % (auto) 2.2 %; Hematocrit (blood only) 25.5 % (42-52); Immature Granulocytes # (auto) 0.05 K/uL (0.00-0.02); Immature Granulocytes % (auto) 0.7 %; Lymphocytes # (auto) 0.73 K/uL (1.2-3.4); Lymphocytes % (auto) 10.5 %; Mean Corpuscular Hemoglobin 23.7 pg (25-34); Mean Corpuscular Hgb Conc 31.4 g/dL (32-36); Mean Corpuscular Volume 75.4 fL (80-100); Mean Platelet Volume 10.2 fL (7.4-10.4); Monocytes # (auto) 0.89 K/uL (0.11-0.59); Monocytes % (auto) 12.8 %; Neutrophils # (auto) 5.07 K/uL (1.4-6.5); Neutrophils % (auto) 73.2 %; Platelet Count 207 K/uL (130-400); RDW Coefficient of Variation 17.2 % (11.5-14.5); RDW Standard Deviation 47.7 fL (36.4-46.3); Red Blood Count 3.38 M/uL (4.7-6.1); White Blood Count 6.93 K/uL (4.8-10.8)
[2020-11-01 05:35] LABS: Albumin Level 2.3 gm/dl (3.4-5.0); BUN Creatinine Ratio 16.2 (10-20); Calcium 8.5 mg/dl (8.5-10.1); Creatinine Clr Calc Pharmacy 96.8 ml/min; Est GFR (African American) 78.9; Est GFR (Non-African American) 68.1; Potassium 3.6 mmol/L (3.5-5.1)
[2020-11-01 05:42] LABS: Albumin Globulin Ratio 0.5 (0.9-2); Bilirubin,Total 2.3 mg/dl (0.2-1); Globulin 4.4 gm/dl (2.5-4.0); Total Protein 6.7 gm/dl (6.4-8.2)
[2020-11-01 05:48] LABS: Partial Thromboplastin Time 53.7 Seconds (21.0-31.0)
[2020-11-01] MEDS: POTASSIUM CHLORIDE / WTR 10 MEQ/100 ML PLCT IV SCH ×3 (06:30→09:48)
[2020-11-01] MEDS: HEPARIN SODIUM/DEXTROSE 25,000 UNITS/500 ML BAG IV SCH ×2 (06:30→19:11)
[2020-11-01] MEDS: FUROSEMIDE 40 MG in SYRINGE 0 ML IV SCH (08:06)
[2020-11-01] MEDS: FOLIC ACID 1 MG in SYRINGE 9.8 ML IV SCH (08:06)
[2020-11-01] MEDS: THIAMINE HCL 200 MG in SODIUM CHLORIDE 0.9% 50 ML IV SCH ×2 (08:06→20:59)
[2020-11-01] MEDS: FERROUS SULFATE 325 MG/7.4 ML UDP PO SCH ×2 (08:11→16:12)
[2020-11-01] MEDS: CALCIUM CARBONATE 1,250 MG/5 ML UDC PO SCH ×2 (08:11→19:44)
[2020-11-01] MEDS: BETAMETHASONE DIP AUG (DIPROLENE) 0.05% CR 15 GM TUBE EXT SCH ×2 (08:12→21:22)
[2020-11-01] MEDS: LORazepam 2 MG/4 ML VIAL IV PRN ×2 (10:06→17:53)
[2020-11-01] MEDS: ZIPRASIDONE 20 MG/ML SDV IM PRN ×2 (10:25→22:14)
--- NOTE | 2020-11-01 12:09 | Critical Care Progress Note ---
Date of Service November 01, 2020 Assessment & Plan (1) Cardiac arrest: Reason critically ill: 65-year-old male status post in-hospital cardiac arrest with ROSC requiring close hemodynamic monitoring, now completed rewarming protocol and awaiting further delineation of extent of potential neurologic insult from arrest. Patient's total downtime with the rest was around 10 minutes. He was extubated 10/30/2020 24-hour events: The patient has been intermittently on and off BiPAP. He luc nues require sedation with Ativan and Geodon. He has been hemodynamically stable. Unfortunately his clinical situation is not been conducive to swallow evaluation or taking oral medications. Recommendations Neuro: Continues to manifest encephalopathy likely multifactorial due to combinations of medications, potential alcohol withdrawal, and potential anoxic encephalopathy. Continue clonidine and judicious Ativan and Geodon. Could consider Seroquel orally however the patient is not able to swallow currently. Trying to avoid placing a feeding tube. No indication for repeat imaging at this point time. Cardiac/Vascular: Status post cardiac arrest. Etiology somewhat unclear but would favor underlying sleep disordered breathing with concomitant use of benzodiazepines. He is hemodynamically stable currently. Continue heparin per cardiology although we may be able to stop it within the next several days. Continue IV Lopressor until were able to get enteric access. Gentle diuresis as tolerated by blood pressure. Respiratory: History of sleep disordered breathing and probable obesity hypoventilation syndrome. Continue CPAP/BiPAP nightly and as needed during the day. Wean oxygen as tolerated. Would benefit from additional diuresis. GI/Nutrition: No nutrition going in hopes of the patient's mental status improving enough to allow for him to take p.o. If continues to fail over the next 24 hours may need enteric access and restart of tube feeds and oral medications. Renal/Lytes: Acute kidney injury, now resolved. Continue to follow electrolytes and replete as needed. : -Brock in place -Continue to monitor strict I's and O's ENDO: -History of type 2 diabetes -Continue management per ICU glycemic protocol -Sliding scale insulin available HEME: -Hgb stable at 9.1 this a.m. -No clear source for acute blood loss at this time -Continue to monitor ID: -Hold antibiotics at this time in the setting of no demonstrated source of infection -Blood cultures x4 with no growth to date -Sputum culture with only rare gram-positive bacilli demonstrated, awaiting fin al results -Procal 1.28 today, downtrending from admission Lines/IV Access: -PIV x3 -removal of right IJ/cooling catheter following -Consideration of PICC if further requiring vasopressors DVT Prophylaxis: -continue systemic heparin Son will be updated by phone today. Once the patient manifest that he can maintain off of BiPAP during the day and his mental status improves we will transfer him out of the ICU to the floor. Hopefully this will occur in the next 24 to 48 hours. (2) Respiratory failure: (3) Acute on chronic renal failure: (4) Chronic diastolic heart failure: (5) Acute diastolic (congestive) heart failure: (6) Pneumonia: (7) Shortness of breath: (8) Depression: (9) Alcohol abuse: Admission and Anticipated Discharge Date Admission Date: October 23, 2020 Subjective Patient seen and examined. Discussed with critical care nurse at bedside. The patient continues to have episodes of agitation requiring intermittent dosing of Geodon and Ativan. He is intermittently on and off BiPAP. He becomes quite restless. He is not able to follow commands. Review of Systems Review of Systems: Unobtainable due to cognitive status Physical Exam Constitutional: + obese and + disheveled Eyes: + anicteric sclerae; no scleral abnormality and no corneal abnormality Respiratory: symmetric chest movement; + abnormal respiratory effort Auscultation: no rales, no rhonchi and no wheezes Cardiovascular: Heart Sounds: no gallop, no murmur and no cardiac rub Vessels: no JVD Extremities: + edema Gastrointestinal (Abdomen): Inspection/Auscultation: abdomen normal to inspection and normal bowel sounds; abdomen not distended and no abdominal edema Psychiatric: Orientation: + not alert Apperance: + disheveled Results & Data Results & Data ([facility]) Vital Signs (Past 12 Hours) Vital Signs Temp Pulse Resp BP Pulse Ox 11/01/20 10:32 23 170/123 H 92 11/01/20 10:30 24 93 11/01/20 10:14 130 H 31 H 157/93 H 95 11/01/20 10:02 19 159/123 H 93 11/01/20 10:00 28 H 95 11/01/20 09:48 126 H 42 H 153/92 H 93 11/01/20 09:30 36.9 C 148 H 22 89 L 11/01/20 09:02 110 H 24 148/97 H 11/01/20 09:00 113 H 28 H 97 11/01/20 08:33 99 H 18 146/90 H 97 11/01/20 08:32 112 H 26 H 138/108 H 95 11/01/20 08:30 96 H 27 H 98 11/01/20 08:00 93 H 34 H 96 11/01/20 07:34 101 H 36 H 139/92 96 11/01/20 07:30 93 H 26 H 98 11/01/20 07:04 96 H 25 H 96 11/01/20 07:00 99 H 32 H 96 11/01/20 06:45 93 H 23 96 11/01/20 05:34 37.1 C 93 H 31 H 145/73 H 97 11/01/20 05:30 83 22 96 11/01/20 05:00 92 H 24 96 11/01/20 04:34 81 28 H 113/73 97 11/01/20 04:30 86 36 H 96 11/01/20 04:00 84 16 96 11/01/20 03:50 68 24 97 11/01/20 03:34 87 24 127/79 96 11/01/20 03:30 84 42 H 96 11/01/20 03:00 92 H 39 H 96 11/01/20 02:34 83 25 H 138/77 97 11/01/20 02:30 84 27 H 96 11/01/20 02:00 37.4 C 87 35 H 99 11/01/20 01:34 88 27 H 116/64 96 11/01/20 01:30 87 25 H 96 11/01/20 01:00 85 25 H 98 11/01/20 00:49 105 H 42 H 132/83 97 11/01/20 00:30 108 H 97 11/01/20 00:26 102 H Laboratory Results 11/01/20 04:38 11/01/20 04:38 Diagnostic Findings No new imaging Coding Level of Care Code 63054 Subseq Hosp Care Lvl 3 Diagnoses Cardiac arrest I46.9 Respiratory failure J96.90 Acute on chronic renal failure N17.9; N18.9 Chronic diastolic heart failure I50.32 Acute diastolic (congestive) heart failure I50.31 Pneumonia J18.9 Pneumonia type: due to unspecified organism Laterality: right Lung location: lower lobe of lung Shortness of breath R06.02 Depression F32.9 Alcohol abuse F10.10 (1) Pneumonia Pneumonia type: due to unspecified organism Laterality: right Lung location: lower lobe of lung Qualified Code(s): J18.9 - Pneumonia, unspecified organism
--- NOTE | 2020-11-01 14:15 | Hospitalist Progress Note ---
Date of Service November 01, 2020 Assessment & Plan (1) Cardiac arrest: This is a 65-year-old male who presents with shortness of breath. Pt initially treated for CHF exacerbation, RLL PNA, Aflutter, poss. R foot cellulitis. Pt w/ hx of alcohol abuse (confirmed by pt and his family members), on etoh withdrawal protocol. Night of 10/24 - pt received ativan per etoh withdrawal protocol as he was found to be agitated. Soon after pt witnessed LOC and pulseless, code blue was called, CPR per nursing staff, ACLS protocol - epi x2, cardioversion for wide complex tachycardia, started on amiodarone, intubated by ER physician. S/P hypothermia protocol S/P extubated today (10/30) Cardiology on board Echo showed no regional wall motion abnormalities with preserved LV function Currently on Afib Continue monitor closely in ICU (2) Atrial fibrillation with rapid ventricular response: Currently on Afib Rate improved Continue metoprolol and heparin drip Cardiology on board (3) Pneumonia: (4) Shortness of breath: Respiratory failure CXR c/w Airspace consolidation is seen in the right lung base CTA chest showed no PE Mechanical ventilation management as per Aggregate Conveyor Operator Procalcitonin elevated Blood cx negative Abx has been on hold since no source of infection Procalcitonin continue trending down (5) Acute diastolic (congestive) heart failure: (6) CHF (congestive heart failure): CXR today showed Cardiomegaly with pulmonary vascular congestion. Intubated on Mechanical vent suppport Continue IV lasix Monitor I/O Electrolytes imbalance Potassium 3.6 Monitor electrolytes Alcoholism Alcohol withdrawal Continue with IV thiamine, IV folic acid. Continue monitor closely monitor Continue to be agitated Anemia. Hemoglobin 8 today Continue iron supplements. Recent hx of venous ulcer bleed. Continue monitor CBC Hypertension BP in the low side, will continue to hold lisinopril Continue low dose metoprolol . LAUREN on CPAP at bedtime. Now pt intubated. Psoriasis. Previously on Humira. DVT prophylaxis On IV heparin drip (Will need to monitor closely due to recent bleed (from venous ulcer) Disposition Continue monitor in The ICU (7) Hypokalemia: Admission and Anticipated Discharge Date Admission Date: October 23, 2020 Subjective Pt was seen and examined for follow up post cardiac arrest and agitation Lying in bed with 1 to 1 observation Pt continues to have episode of agitation and required Ativan and Geodon Nurse said that he is very restlessness Denies any chest pain, dizziness and SOB Physical Exam Physical Exam: General- restlessness Head- atraumatic Eyes- PERRL, EOMI, ENT- s/p extubation Neck- supple, no JVD Lungs- clear to auscultation Heart- +tachycardia, no murmur Abdomen- normal bowel sounds, soft Neuro-awake,moves all 4 extremities Skin- warm & dry Results & Data Results & Data ([facility]) Vital Signs (Past 12 Hours) Vital Signs Temp Pulse Resp BP Pulse Ox 11/01/20 10:32 23 170/123 H 92 11/01/20 10:30 24 93 11/01/20 10:14 130 H 31 H 157/93 H 95 11/01/20 10:02 19 159/123 H 93 11/01/20 10:00 28 H 95 11/01/20 09:48 126 H 42 H 153/92 H 93 11/01/20 09:30 36.9 C 148 H 22 89 L 11/01/20 09:02 110 H 24 148/97 H 11/01/20 09:00 113 H 28 H 97 11/01/20 08:33 99 H 18 146/90 H 97 11/01/20 08:32 112 H 26 H 138/108 H 95 11/01/20 08:30 96 H 27 H 98 11/01/20 08:00 93 H 34 H 96 11/01/20 07:34 101 H 36 H 139/92 96 11/01/20 07:30 93 H 26 H 98 11/01/20 07:04 96 H 25 H 96 11/01/20 07:00 99 H 32 H 96 11/01/20 06:45 93 H 23 96 11/01/20 05:34 37.1 C 93 H 31 H 145/73 H 97 11/01/20 05:30 83 22 96 11/01/20 05:00 92 H 24 96 11/01/20 04:34 81 28 H 113/73 97 11/01/20 04:30 86 36 H 96 11/01/20 04:00 84 16 96 11/01/20 03:50 68 24 97 11/01/20 03:34 87 24 127/79 96 11/01/20 03:30 84 42 H 96 11/01/20 03:00 92 H 39 H 96 11/01/20 02:34 83 25 H 138/77 97 11/01/20 02:30 84 27 H 96 (1) Pneumonia Laterality: right Lung location: lower lobe of lung Pneumonia type: due to unspecified organism Qualified Code(s): J18.9 - Pneumonia, unspecified organism
[2020-11-02] MEDS: INSULIN ASPART 100 UNITS/ML 3 ML PEN SC SCH ×4 (00:01→18:27)
[2020-11-02] MEDS: CHECK CLONIDINE PATCH PLACEMENT SCH ×3 (00:15→16:28)
[2020-11-02] MEDS: LORazepam 1 MG/2 ML VIAL IV SCH ×4 (01:09→19:48)
[2020-11-02] MEDS: LORazepam 2 MG/4 ML VIAL IV PRN ×2 (04:03→06:29)
[2020-11-02 05:39] LABS: Basophils # (auto) 0.03 K/uL (0-0.2); Basophils % (auto) 0.4 %; Eosinophils # (auto) 0.11 K/uL (0-0.5); Eosinophils % (auto) 1.4 %; Hematocrit (blood only) 26.8 % (42-52); Hemoglobin 8.4 g/dL (14.0-18.0); Immature Granulocytes # (auto) 0.06 K/uL (0.00-0.02); Immature Granulocytes % (auto) 0.8 %; Lymphocytes # (auto) 0.88 K/uL (1.2-3.4); Lymphocytes % (auto) 11.5 %; Mean Corpuscular Hemoglobin 23.8 pg (25-34); Mean Corpuscular Hgb Conc 31.3 g/dL (32-36); Mean Corpuscular Volume 75.9 fL (80-100); Mean Platelet Volume 10.4 fL (7.4-10.4); Monocytes # (auto) 0.92 K/uL (0.11-0.59); Neutrophils # (auto) 5.65 K/uL (1.4-6.5); Neutrophils % (auto) 73.9 %; Platelet Count 249 K/uL (130-400); RDW Coefficient of Variation 17.3 % (11.5-14.5); RDW Standard Deviation 47.6 fL (36.4-46.3); Red Blood Count 3.53 M/uL (4.7-6.1); White Blood Count 7.65 K/uL (4.8-10.8)
[2020-11-02 05:51] LABS: Partial Thromboplastin Ratio 1.8
[2020-11-02 05:56] LABS: Albumin Level 2.6 gm/dl (3.4-5.0); BUN Creatinine Ratio 13.7 (10-20); Calcium 8.8 mg/dl (8.5-10.1); Creatinine Clr Calc Pharmacy 95.1 ml/min; Est GFR (African American) 78.1; Est GFR (Non-African American) 67.4; Magnesium 1.9 mg/dl (1.8-2.4); Potassium 3.7 mmol/L (3.5-5.1)
[2020-11-02 05:59] LABS: Albumin Globulin Ratio 0.5 (0.9-2); Bilirubin,Total 2.3 mg/dl (0.2-1); Globulin 4.9 gm/dl (2.5-4.0); Partial Thromboplastin Time 47.8 Seconds (21.0-31.0); Phosphorus 3.4 mg/dl (2.5-4.9); Total Protein 7.5 gm/dl (6.4-8.2)
[2020-11-02] MEDS: ZIPRASIDONE 20 MG/ML SDV IM PRN (06:47)
[2020-11-02] MEDS: HEPARIN SODIUM/DEXTROSE 25,000 UNITS/500 ML BAG IV SCH ×4 (08:06→21:04)
[2020-11-02] MEDS: CALCIUM CARBONATE 1,250 MG/5 ML UDC PO SCH ×2 (08:56→21:06)
[2020-11-02] MEDS: FERROUS SULFATE 325 MG/7.4 ML UDP PO SCH ×2 (08:56→16:28)
[2020-11-02] MEDS: THIAMINE HCL 200 MG in SODIUM CHLORIDE 0.9% 50 ML IV SCH ×2 (08:59→21:05)
[2020-11-02] MEDS: FOLIC ACID 1 MG in SYRINGE 9.8 ML IV SCH (08:59)
[2020-11-02] MEDS: BETAMETHASONE DIP AUG (DIPROLENE) 0.05% CR 15 GM TUBE EXT SCH ×2 (09:00→21:05)
[2020-11-02] MEDS: FUROSEMIDE 40 MG in SYRINGE 0 ML IV SCH (11:50)
--- NOTE | 2020-11-02 13:20 | Critical Care Progress Note ---
Date of Service November 02, 2020 Assessment & Plan (1) Cardiac arrest: Reason critically ill: 65-year-old male status post in-hospital cardiac arrest with ROSC requiring close hemodynamic monitoring, now completed rewarming protocol and awaiting further delineation of extent of potential neurologic insult from arrest. Patient's total downtime with the rest was around 10 damian laurita. He was extubated 10/30/2020 24-hour events: Patient continues to demonstrate intermittent agitation. He is required intermittent doses of Geodon as well as Ativan and has been on and off BiPAP. He requires a sitter. He is been hemodynamically stable. Recommendations Neuro: Continues to manifest encephalopathy likely multifactorial due to combinations of medications, potential alcohol withdrawal, and potential anoxic encephalopathy. Discussed with son and he estimates that the patient drinks over 100 bottles of beer a week. Continue Ativan and add Seroquel orally once feeding tube placed. Currently on thiamine and folate replacement. Cardiac/Vascular: Status post cardiac arrest. Etiology somewhat unclear but would favor underlying sleep disordered breathing with concomitant use of benzodiazepines. He is hemodynamically stable currently. Continue heparin per cardiology although we may be able to stop it within the next several days. Place nasogastric feeding tube in transition Lopressor to oral. Will discontinue clonidine. Respiratory: History of sleep disordered breathing and probable obesity hypoventilation syndrome. Continue CPAP/BiPAP nightly and as needed during the day. Wean oxygen as tolerated. Would benefit from additional diuresis. GI/Nutrition: Place small bore nasoenteric feeding tube and check placement with KUB. Dietary consultation for enteric feeding. Renal/Lytes: Acute kidney injury, now resolved. Continue to follow electrolytes and replete as needed. : -Brock in place -Continue to monitor strict I's and O's ENDO: -History of type 2 diabetes -Continue management per ICU glycemic protocol -Sliding scale insulin available HEME: Mild anemia. No indication for transfusion currently. Continue to trend r ID: -Hold antibiotics at this time in the setting of no demonstrated source of infection -Blood cultures x4 with no growth to date -Sputum culture with only rare gram-positive bacilli demonstrated, awaiting final results -Procal 1.28 today, downtrending from admission Lines/IV Access: -PIV x3 -removal of right IJ/cooling catheter following -Consideration of PICC if further requiring vasopressors DVT Prophylaxis: -continue systemic heparin Patient son updated yesterday. (2) Respiratory failure: (3) Acute on chronic renal failure: (4) Chronic diastolic heart failure: (5) Acute diastolic (congestive) heart failure: (6) Pneumonia: (7) Shortness of breath: (8) Depression: (9) Alcohol abuse: Admission and Anticipated Discharge Date Admission Date: October 23, 2020 Subjective Patient is currently sedated on BiPAP. He is hemodynamically stable. Discussed with critical care nurse at bedside. He continues to require sitter. Review of Systems Review of Systems: Unobtainable due to reduced consciousness Physical Exam Constitutional: + obese and + disheveled Eyes: + anicteric sclerae; no scleral abnormality and no corneal abnormality Respiratory: symmetric chest movement; + abnormal respiratory effort Auscultation: no rales, no rhonchi and no wheezes Cardiovascular: Heart Sounds: no gallop, no murmur and no cardiac rub Vessels: no JVD Extremities: + edema Gastrointestinal (Abdomen): Inspection/Auscultation: abdomen normal to inspection and normal bowel sounds; abdomen not distended and no abdominal edema Psychiatric: Orientation: + not alert Apperance: + disheveled Results & Data Results & Data ([facility]) Vital Signs (Past 12 Hours) Vital Signs Temp Pulse Resp BP Pulse Ox 11/02/20 12:44 95 11/02/20 12:03 98 H 27 H 138/79 98 11/02/20 12:00 102 H 32 H 97 11/02/20 11:34 24 149/107 H 95 11/02/20 11:30 29 H 97 11/02/20 11:03 99 H 47 H 150/76 H 96 11/02/20 11:00 99 H 25 H 98 11/02/20 10:50 101 H 28 H 166/108 H 94 11/02/20 10:33 103 H 29 H 165/96 H 95 11/02/20 10:30 102 H 21 97 11/02/20 10:03 28 H 186/117 H 98 11/02/20 10:00 102 H 27 H 95 11/02/20 09:33 32 H 155/97 H 97 11/02/20 09:30 98 H 33 H 98 11/02/20 09:07 94 H 53 H 139/93 11/02/20 09:00 94 H 50 H 11/02/20 08:30 111 H 20 100 11/02/20 08:00 92 H 22 96 11/02/20 07:33 108 H 24 123/67 93 11/02/20 07:30 105 H 31 H 94 11/02/20 07:28 115 H 29 H 94 11/02/20 07:03 99 H 28 H 139/94 96 11/02/20 07:00 117 H 30 H 96 11/02/20 06:00 118 H 29 H 96 11/02/20 05:30 104 H 22 95 11/02/20 05:00 117 H 26 H 97 11/02/20 04:33 114 H 28 H 143/70 H 97 11/02/20 04:30 104 H 26 H 96 11/02/20 04:03 39 H 147/97 H 97 11/02/20 04:00 110 H 19 97 11/02/20 03:38 103 H 22 98 11/02/20 03:33 27 H 155/105 H 98 11/02/20 03:30 126 H 25 H 98 11/02/20 03:02 36.9 C 110 H 21 174/103 H 96 11/02/20 03:00 109 H 29 H 97 11/02/20 02:32 124 H 21 156/113 H 96 11/02/20 02:30 113 H 30 H 98 11/02/20 02:03 118 H 25 H 181/110 H 96 11/02/20 02:00 109 H 27 H 96 11/02/20 01:34 148 H 62 H 97 11/02/20 01:33 124 H 18 138/109 H 98 11/02/20 01:30 111 H 35 H 97 Laboratory Results 11/02/20 04:53 11/02/20 04:53 Diagnostic Findings No new imaging Coding Level of Care Code 44118 Subseq Hosp Care Lvl 3 Diagnoses Cardiac arrest I46.9 Respiratory failure J96.90 Acute on chronic renal failure N17.9; N18.9 Chronic diastolic heart failure I50.32 Acute diastolic (congestive) heart failure I50.31 Pneumonia J18.9 Pneumonia type: due to unspecified organism Laterality: right Lung location: lower lobe of lung Shortness of breath R06.02 Depression F32.9 Alcohol abuse F10.10 (1) Pneumonia Pneumonia type: due to unspecified organism Laterality: right Lung location: lower lobe of lung Qualified Code(s): J18.9 - Pneumonia, unspecified organism
[2020-11-02] MEDS ORDERED: FIBERSOURCE HN 1.2 CAL 1000 ML BAG NG SCH (13:45)
--- NOTE | 2020-11-02 14:57 | XRay Report ---
XR KUB/Abdomen 1 view CLINICAL HISTORY: post tube placement COMPARISON STUDY: No previous studies for comparison. FINDINGS: A single view centered on hemidiaphragms is provided for interpretation. There is an enteri c tube with its tip at the level the duodenal bulb. The heart is enlarged. IMPRESSION: Enteric tube with its tip positioned at the level of the duodenal bulb. ACT 112: Negative or not required by law. Electronically signed by: Alberto Polanco M.D. 11/02/2020 2:55 PM
[2020-11-02] MEDS: METOPROLOL TARTRATE 25 MG TAB PO SCH ×2 (16:28→21:04)
[2020-11-02] MEDS: TUBE FEEDING WATER FLUSH GT SCH ×3 (16:28→21:06)
--- NOTE | 2020-11-02 17:13 | Hospitalist Progress Note ---
Date of Service November 02, 2020 Assessment & Plan (1) Cardiac arrest: This is a 65-year-old male who presents with shortness of breath. Pt initially treated for CHF exacerbation, RLL PNA, Aflutter, poss. R foot cellulitis. Pt w/ hx of alcohol abuse (confirmed by pt and his family members), on etoh withdrawal protocol. Night of 10/24 - pt received ativan per etoh withdrawal protocol as he was found to be agitated. Soon after pt witnessed LOC and pulseless, code blue was called, CPR per nursing staff, ACLS protocol - epi x2, cardioversion for wide complex tachycardia, started on amiodarone, intubated by ER physician. S/P hypothermia protocol S/P extubated today (10/30) Cardiology on board Echo showed no regional wall motion abnormalities with preserved LV function Currently on Afib Continue monitor closely in ICU (2) Atrial fibrillation with rapid ventricular response: Currently on Afib Rate improved Continue metoprolol and heparin drip Cardiology on board (3) Pneumonia: (4) Shortness of breath: Respiratory failure CXR c/w Airspace consolidation is seen in the right lung base CTA chest showed no PE Mechanical ventilation management as per Quality Control Engineering Technician Procalcitonin elevated Blood cx negative Abx has been on hold since no source of infection Procalcitonin continue trending down (5) Acute diastolic (congestive) heart failure: (6) CHF (congestive heart failure): CXR today showed Cardiomegaly with pulmonary vascular congestion. Intubated on Mechanical vent suppport Continue IV lasix Monitor I/O Electrolytes imbalance Potassium 3.6 Monitor electrolytes Alcoholism Alcohol withdrawal Continue with IV thiamine, IV folic acid. Continue monitor closely monitor Continue to be agitated Anemia. Hemoglobin 8.4 today Continue iron supplements. Recent hx of venous ulcer bleed. Continue monitor CBC Hypertension BP in the low side, will continue to hold lisinopril Continue low dose metoprolol . LAUREN on CPAP at bedtime. Now pt intubated. Psoriasis. Previously on Humira. DVT prophylaxis On IV heparin drip (Will need to monitor closely due to recent bleed (from venous ulcer) Disposition Continue monitor in The ICU (7) Hypokalemia: Admission and Anticipated Discharge Date Admission Date: October 23, 2020 Subjective Pt was seen and examined for follow up post cardiac arrest and agitation Lying in bed with 1 to 1 observation Pt is more awake today He continues to have intermittent agitation and required medication He was able to follow command Physical Exam Physical Exam: General- restlessness Head- atraumatic Eyes- PERRL, EOMI, ENT- s/p extubation Neck- supple, no JVD Lungs- clear to auscultation Heart- +tachycardia, no murmur Abdomen- normal bowel sounds, soft Neuro-awake,moves all 4 extremities Skin- warm & dry Results & Data Results & Data ([facility]) Vital Signs (Past 12 Hours) Vital Signs Temp Pulse Resp BP Pulse Ox Pulse Ox 11/02/20 16:30 101 H 32 H 96 11/02/20 16:00 104 H 31 H 96 11/02/20 15:30 102 H 34 H 97 11/02/20 15:03 62 H 167/104 H 11/02/20 15:00 103 H 25 H 11/02/20 14:33 100 H 22 125/93 95 11/02/20 14:30 99 H 25 H 97 11/02/20 14:08 95 11/02/20 14:00 93 H 27 H 96 11/02/20 13:30 92 H 31 H 96 11/02/20 13:03 93 H 17 128/82 97 11/02/20 13:00 90 23 96 11/02/20 12:53 36.7 C 92 H 28 H 139/90 95 11/02/20 12:50 93 H 28 H 99/46 L 96 11/02/20 12:45 95 H 24 99/38 L 97 11/02/20 12:44 95 11/02/20 12:30 32 H 94 11/02/20 12:03 98 H 27 H 138/79 98 11/02/20 12:00 102 H 32 H 97 11/02/20 11:34 24 149/107 H 95 11/02/20 11:30 29 H 97 11/02/20 11:03 99 H 47 H 150/76 H 96 11/02/20 11:00 99 H 25 H 98 11/02/20 10:50 101 H 28 H 166/108 H 94 11/02/20 10:33 103 H 29 H 165/96 H 95 11/02/20 10:30 102 H 21 97 11/02/20 10:03 28 H 186/117 H 98 11/02/20 10:00 102 H 27 H 95 11/02/20 09:33 32 H 155/97 H 97 11/02/20 09:30 98 H 33 H 98 11/02/20 09:07 94 H 53 H 139/93 11/02/20 09:00 94 H 50 H 11/02/20 08:30 111 H 20 100 11/02/20 08:00 92 H 22 96 11/02/20 07:33 108 H 24 123/67 93 11/02/20 07:30 105 H 31 H 94 11/02/20 07:28 115 H 29 H 94 11/02/20 07:03 99 H 28 H 139/94 96 11/02/20 07:00 117 H 30 H 96 11/02/20 06:00 118 H 29 H 96 11/02/20 05:30 104 H 22 95 (1) Pneumonia Laterality: right Lung location: lower lobe of lung Pneumonia type: due to unspecified organism Qualified Code(s): J18.9 - Pneumonia, unspecified organism
[2020-11-02] MEDS: QUEtiapine FUMARATE 100 MG TABLET PO SCH (21:05)
[2020-11-03] MEDS: INSULIN ASPART 100 UNITS/ML 3 ML PEN SC SCH ×4 (00:06→17:39)
[2020-11-03] MEDS: CHECK CLONIDINE PATCH PLACEMENT SCH ×2 (00:09→08:35)
[2020-11-03] MEDS: TUBE FEEDING WATER FLUSH GT SCH ×6 (02:00→22:09)
[2020-11-03] MEDS: LORazepam 1 MG/2 ML VIAL IV SCH ×3 (02:45→13:52)
[2020-11-03 05:07] LABS: Basophils # (auto) 0.03 K/uL (0-0.2); Basophils % (auto) 0.4 %; Eosinophils % (auto) 1.4 %; Hematocrit (blood only) 25.4 % (42-52); Hemoglobin 7.8 g/dL (14.0-18.0); Immature Granulocytes # (auto) 0.03 K/uL (0.00-0.02); Immature Granulocytes % (auto) 0.4 %; Lymphocytes # (auto) 1.58 K/uL (1.2-3.4); Lymphocytes % (auto) 22.4 %; Mean Corpuscular Hemoglobin 23.5 pg (25-34); Mean Corpuscular Hgb Conc 30.7 g/dL (32-36); Mean Corpuscular Volume 76.5 fL (80-100); Mean Platelet Volume 10.2 fL (7.4-10.4); Monocytes # (auto) 0.64 K/uL (0.11-0.59); Monocytes % (auto) 9.1 %; Neutrophils # (auto) 4.68 K/uL (1.4-6.5); Neutrophils % (auto) 66.3 %; Platelet Count 263 K/uL (130-400); RDW Coefficient of Variation 17.5 % (11.5-14.5); RDW Standard Deviation 47.8 fL (36.4-46.3); Red Blood Count 3.32 M/uL (4.7-6.1); White Blood Count 7.06 K/uL (4.8-10.8)
[2020-11-03 05:22] LABS: BUN Creatinine Ratio 12.7 (10-20); Calcium 8.9 mg/dl (8.5-10.1); Creatinine Clr Calc Pharmacy 88.9 ml/min; Est GFR (Non-African American) 62.1; Magnesium 2.1 mg/dl (1.8-2.4); Partial Thromboplastin Ratio 2.2; Potassium 3.7 mmol/L (3.5-5.1)
[2020-11-03 05:23] LABS: Phosphorus 3.7 mg/dl (2.5-4.9)
[2020-11-03 05:36] LABS: Hypochromasia Present; Polychromasia 1+
[2020-11-03] MEDS: METOPROLOL TARTRATE 25 MG TAB PO SCH ×2 (05:43→15:29)
[2020-11-03 05:44] LABS: Partial Thromboplastin Time 58.4 Seconds (21.0-31.0)
[2020-11-03] MEDS: POTASSIUM CHLORIDE / WTR 10 MEQ/100 ML PLCT IV SCH ×3 (06:09→08:35)
[2020-11-03] MEDS: HEPARIN SODIUM/DEXTROSE 25,000 UNITS/500 ML BAG IV SCH ×4 (07:11→21:34)
[2020-11-03] MEDS: CALCIUM CARBONATE 1,250 MG/5 ML UDC PO SCH ×2 (07:30→20:38)
[2020-11-03] MEDS: FERROUS SULFATE 325 MG/7.4 ML UDP PO SCH ×2 (07:30→17:36)
[2020-11-03] MEDS: FOLIC ACID 1 MG in SYRINGE 9.8 ML IV SCH (08:37)
[2020-11-03] MEDS: THIAMINE HCL 200 MG in SODIUM CHLORIDE 0.9% 50 ML IV SCH ×2 (08:37→20:38)
[2020-11-03] MEDS: FUROSEMIDE 40 MG in SYRINGE 0 ML IV SCH (08:37)
[2020-11-03] MEDS: BETAMETHASONE DIP AUG (DIPROLENE) 0.05% CR 15 GM TUBE EXT SCH ×2 (08:38→20:40)
--- NOTE | 2020-11-03 08:59 | Critical Care Progress Note ---
Date of Service November 03, 2020 Assessment & Plan (1) Cardiac arrest: Reason critically ill: 65-year-old male status post in-hospital cardiac arrest with ROSC requiring close hemodynamic monitoring, now completed rewarming protocol and awaiting further delineation of extent of potential neurologic insult from arrest. Patient's total downtime with the rest was around 10 minutes. He was extubated 10/30/2020 Recommendations Neuro: Continues to manifest encephalopathy likely multifactorial due to combinations of medications, potential alcohol withdrawal, and potential anoxic encephalopathy. Discussed with son and he estimates that the patient drinks over 100 bottles of beer a week. Continue Ativan and add Seroquel orally once feeding tube placed. Currently on thiamine and folate replacement. Cardiac/Vascular: Status post cardiac arrest. Etiology somewhat unclear but would favor underlying sleep disordered breathing with concomitant use of benzodiazepines. He is hemodynamically stable currently. Continue heparin per cardiology although we may be able to stop it within the next several days. NGT in place. Respiratory: History of sleep disordered breathing and probable obesity hypoventilation syndrome. Continue CPAP/BiPAP nightly and as needed during the day. Wean oxygen as tolerated. Would benefit from additional diuresis. GI/Nutrition: Place small bore nasoenteric feeding tube and check placement with KUB. Dietary consultation for enteric feeding. Will check ammonia level. Start colace due to constipation. Abdominal film today. Renal/Lytes: Acute kidney injury, now resolved. Continue to follow electrolytes and replete as needed. : -Brock in place -Continue to monitor strict I's and O's ENDO: -History of type 2 diabetes -Continue management per ICU glycemic protocol -Sliding scale insulin available HEME: Mild anemia. No indication for transfusion currently. Continue to trend. Repeat hgb as of 4:34 trended down to 7.8 from 8.4. ID: -Hold antibiotics at this time in the setting of no demonstrated source of infection -Blood cultures x4 with no growth to date -Sputum culture with normal dez. Lines/IV Access: -PIV x3 -Consideration of PICC if further requiring vasopressors DVT Prophylaxis: -continue systemic heparin (2) Respiratory failure: (3) Acute on chronic renal failure: (4) Chronic diastolic heart failure: (5) Acute diastolic (congestive) heart failure: (6) Pneumonia: (7) Shortness of breath: (8) Depression: (9) Alcohol abuse: Admission and Anticipated Discharge Date Admission Date: October 23, 2020 Subjective Patient seen and examined today. He continues to be encephalopathic, but follows commands intermittently. He was able to squeeze my fingers bilaterally. He does not wiggle his toes when I asked him to. He is currently on CPAP at a pressure of 14 to 15 cm H2O. Saturating 100%. NG tube in place. Review of Systems Review of Systems: Unobtainable due to reduced consciousness Physical Exam Constitutional: + obese and + disheveled Eyes: + anicteric sclerae; no scleral abnormality and no corneal abnormality Respiratory: symmetric chest movement; + abnormal respiratory effort Auscultation: no rales, no rhonchi and no wheezes Cardiovascular: Heart Sounds: no gallop, no murmur and no cardiac rub Vessels: no JVD Extremities: + edema Gastrointestinal (Abdomen): Inspection/Auscultation: abdomen normal to inspection and normal bowel sounds; abdomen not distended and no abdominal edema Psychiatric: Orientation: + not alert Apperance: + disheveled Results & Data Results & Data ([facility]) Vital Signs (Past 12 Hours) Vital Signs Temp Pulse Resp BP Pulse Ox 11/03/20 06:34 80 26 H 148/89 H 95 11/03/20 06:30 97 H 18 98 11/03/20 06:04 79 35 H 139/84 97 11/03/20 06:00 37 H 100 11/03/20 05:33 81 20 149/78 H 98 11/03/20 05:30 80 29 H 98 11/03/20 05:03 84 29 H 121/68 98 11/03/20 05:00 103 H 28 H 98 11/03/20 04:33 88 28 H 142/81 H 11/03/20 04:30 34 H 90 11/03/20 04:04 24 141/75 H 96 11/03/20 04:00 99.0 F 85 23 97 11/03/20 03:33 77 28 H 132/85 95 11/03/20 03:30 74 28 H 96 11/03/20 03:03 67 29 H 124/73 97 11/03/20 03:00 63 27 H 96 11/03/20 02:34 62 26 H 96 11/03/20 02:33 71 27 H 112/75 97 11/03/20 02:30 69 29 H 96 02/15/21 02:03 65 28 H 116/71 96 11/03/20 02:00 70 25 H 96 11/03/20 01:50 63 28 H 95 11/03/20 01:33 74 28 H 122/77 94 11/03/20 01:30 70 26 H 93 11/03/20 01:03 77 29 H 121/74 91 11/03/20 01:00 79 29 H 92 11/03/20 00:33 81 32 H 122/73 93 11/03/20 00:30 83 32 H 91 11/03/20 00:04 82 33 H 150/84 H 94 11/03/20 00:00 98.1 F 84 32 H 93 11/02/20 23:59 85 11/02/20 23:33 76 30 H 125/74 97 11/02/20 23:30 77 36 H 97 11/02/20 23:03 80 32 H 131/81 98 11/02/20 23:00 83 31 H 96 11/02/20 22:34 78 28 H 97 11/02/20 22:33 99.7 F H 79 32 H 116/67 97 11/02/20 22:30 80 31 H 97 11/02/20 22:03 84 44 H 114/73 96 11/02/20 22:00 85 32 H 91 11/02/20 21:55 85 32 H 92 11/02/20 21:33 99 H 32 H 141/79 H 90 11/02/20 21:30 122 H 70 H 92 11/02/20 21:04 98 H 29 H 141/100 H 91 11/02/20 21:00 93 H 26 H 91 I personally reviewed the vital signs, labs and imaging Coding Level of Care Code 79200 Subseq Hosp Care Lvl 3 Diagnoses Cardiac arrest I46.9 Respiratory failure J96.90 Acute on chronic renal failure N17.9; N18.9 Chronic diastolic heart failure I50.32 Acute diastolic (congestive) heart failure I50.31 Pneumonia J18.9 Pneumonia type: due to unspecified organism Laterality: right Lung location: lower lobe of lung Shortness of breath R06.02 Depression F32.9 Alcohol abuse F10.10 (1) Pneumonia Pneumonia type: due to unspecified organism Laterality: right Lung location: lower lobe of lung Qualified Code(s): J18.9 - Pneumonia, unspecified organism
[2020-11-03] MEDS ORDERED: DOCUSATE SODIUM/SENNA 50/8.6MG TAB PO SCH (09:00)
--- NOTE | 2020-11-03 09:10 | XRay Report ---
KUB CLINICAL HISTORY: Abdominal distention. COMPARISON STUDY: CT of the abdomen and pelvis October 24, 2020. KUB November 02, 2020. FINDINGS: This exam is compromised by suboptimal penetration. No dilated loops of bowel are identifie d on this examination. No urinary calculi are identified although sensitivity is diminished. IMPRESSION: No evidence for a bowel obstruction. Technically difficult exam. ACT 112: Negative or not required by law. Electronically signed by: Oscar Schneider M.D. 11/03/2020 9:08 AM
[2020-11-03] MEDS: LORazepam 2 MG/4 ML VIAL IV PRN ×2 (09:36→16:42)
[2020-11-03 09:44] LABS: Basophils # (auto) 0.04 K/uL (0-0.2); Basophils % (auto) 0.5 %; Eosinophils # (auto) 0.14 K/uL (0-0.5); Eosinophils % (auto) 1.6 %; Hematocrit (blood only) 26.4 % (42-52); Hemoglobin 8.1 g/dL (14.0-18.0); Immature Granulocytes # (auto) 0.04 K/uL (0.00-0.02); Immature Granulocytes % (auto) 0.5 %; Lymphocytes # (auto) 1.52 K/uL (1.2-3.4); Lymphocytes % (auto) 17.3 %; Mean Corpuscular Hemoglobin 23.8 pg (25-34); Mean Corpuscular Volume 77.6 fL (80-100); Mean Platelet Volume 10.2 fL (7.4-10.4); Monocytes # (auto) 0.95 K/uL (0.11-0.59); Monocytes % (auto) 10.8 %; Neutrophils # (auto) 6.11 K/uL (1.4-6.5); Neutrophils % (auto) 69.3 %; Platelet Count 270 K/uL (130-400); RDW Coefficient of Variation 17.8 % (11.5-14.5); RDW Standard Deviation 49.4 fL (36.4-46.3)
[2020-11-03 09:46] LABS: Mean Corpuscular Hgb Conc 30.7 g/dL (32-36)
[2020-11-03] MEDS ORDERED: STAT IV Infusion **Titration per Protocol STA (09:58)
[2020-11-03] MEDS: DEXMEDETOMIDINE HCL 200 MCG in SODIUM CHLORIDE 0.9% 48 ML IV SCH ×4 (10:26→17:35)
[2020-11-03] MEDS: DOCUSATE SODIUM SYRUP 100 MG/10 ML UDC PO SCH ×2 (10:26→20:38)
[2020-11-03] MEDS ORDERED: PEPTAMEN INTENSE VHP 1.0 CAL 1,000 ML BAG OG SCH (12:45)
[2020-11-03] MEDS ORDERED: Nursing to Pharmacy Communication SCH (17:30)
[2020-11-03] MEDS ORDERED: ACETAMINOPHEN SUSP 1000 MG/31.2 ML UDP PO ONE (17:30)
[2020-11-03] MEDS: QUEtiapine FUMARATE 100 MG TABLET PO SCH (20:38)
[2020-11-03] MEDS: DEXMEDETOMIDINE HCL 400 MCG in 0.9 % SODIUM CHLORIDE 96 ML IV SCH (22:06)
[2020-11-04] MEDS: INSULIN ASPART 100 UNITS/ML 3 ML PEN SC SCH ×3 (00:29→11:39)
[2020-11-04] MEDS: TUBE FEEDING WATER FLUSH GT SCH ×4 (02:22→11:33)
[2020-11-04] MEDS ORDERED: SODIUM CHLORIDE 0.9% 1000ML 1,000 ML IV ONE (05:26)
[2020-11-04] MEDS: DEXMEDETOMIDINE HCL 400 MCG in 0.9 % SODIUM CHLORIDE 96 ML IV SCH ×6 (05:27→15:29)
[2020-11-04 05:32] LABS: Basophils # (auto) 0.04 K/uL (0-0.2); Basophils % (auto) 0.5 %; Eosinophils # (auto) 0.13 K/uL (0-0.5); Eosinophils % (auto) 1.7 %; Hemoglobin 7.4 g/dL (14.0-18.0); Immature Granulocytes # (auto) 0.01 K/uL (0.00-0.02); Immature Granulocytes % (auto) 0.1 %; Lymphocytes # (auto) 1.57 K/uL (1.2-3.4); Lymphocytes % (auto) 20.5 %; Mean Corpuscular Hemoglobin 23.9 pg (25-34); Mean Corpuscular Hgb Conc 30.8 g/dL (32-36); Mean Corpuscular Volume 77.4 fL (80-100); Mean Platelet Volume 11.2 fL (7.4-10.4); Monocytes # (auto) 0.77 K/uL (0.11-0.59); Monocytes % (auto) 10.1 %; Neutrophils # (auto) 5.13 K/uL (1.4-6.5); Neutrophils % (auto) 67.1 %; Nucleated RBC # (auto) 0.02 K/uL (0-0); Nucleated RBC % (auto) 0.3 %; Platelet Count 284 K/uL (130-400); RDW Coefficient of Variation 18.1 % (11.5-14.5); RDW Standard Deviation 49.7 fL (36.4-46.3); White Blood Count 7.65 K/uL (4.8-10.8)
[2020-11-04 05:56] LABS: Partial Thromboplastin Ratio 2.5
[2020-11-04 05:57] LABS: Calcium 9.1 mg/dl (8.5-10.1); Creatinine Clr Calc Pharmacy 73.5 ml/min; Est GFR (African American) 57.5; Est GFR (Non-African American) 49.6
[2020-11-04 05:58] LABS: Phosphorus 3.7 mg/dl (2.5-4.9)
[2020-11-04 06:18] LABS: Polychromasia 1+; Target Cells 1+
--- NOTE | 2020-11-04 06:24 | Electrocardiogram Report ---
Test Reason : Blood Pressure : / mmHG Vent. Rate : 087 BPM Atrial Rate : 087 BPM P-R Int : 168 ms QRS Dur : 086 ms QT Int : 386 ms P-R-T Axes : 069 075 181 degrees QTc Int : 464 ms Sinus rhythm with Premature supraventricular complexes T wave abnormality, consider inferolateral ischemia Abnormal ECG When compared with ECG of 27-OCT-2020 00:21, Sinus rhythm has replaced Atrial fibrillation T wave inversion more evident in Lateral leads Confirmed by Wyatt Solomon ([id number]) on 11/04/2020 6:24:10 AM Referred By: REFERRED SELF Confirmed By:Wyatt Solomon
[2020-11-04 06:29] LABS: Partial Thromboplastin Time 65.2 Seconds (21.0-31.0)
--- NOTE | 2020-11-04 07:18 | XRay Report ---
XR chest 1V portable CLINICAL HISTORY: follow up pulm edema COMPARISON STUDY: October 30, 2020 FINDINGS: The endotracheal tube has been removed. An enteric tube passes into the stomach. The heart is enlarged. There is mild pulmonary vascular congestion. There is no lobar consolidation. There is n o overt edema. There is persistent mediastinal widening. A trace right pleural effusion is suspected IMPRESSION: 1. Cardiomegaly and improving pulmonary vascular congestion 2. Interval removal of the endotracheal tube. ACT 112: Negative or not required by law. Electronically signed by: Alberto Polanco M.D. 11/04/2020 7:17 AM
[2020-11-04] MEDS: propofoL 1,000 MG/100 ML VIAL IV SCH (07:55)
[2020-11-04] MEDS ORDERED: CEFEPIME 2,000 MG in SYRINGE 0 ML IV SCH (08:00)
--- NOTE | 2020-11-04 08:56 | Critical Care Progress Note ---
Date of Service November 04, 2020 Assessment & Plan (1) Cardiac arrest: Reason critically ill: 65-year-old male status post in-hospital cardiac arrest with ROSC requiring close hemodynamic monitoring, now completed rewarming protocol and awaiting further delineation of extent of potential neurologic insult from arrest. Patient's total downtime with the rest was around 10 minutes. He was extubated 10/30/2020 Recommendations Neuro: Continues to manifest encephalopathy likely multifactorial due to combinations of medications, potential alcohol withdrawal, and potential anoxic encephalopathy. Will obtain an MRI of his brain given his encephalopathy and his low-grade fevers. We will have a low threshold to obtain neurology consultation. Continue Ativan as needed and Seroquel nightly. Currently on thiamine and folate replacement. Cardiac/Vascular: Status post cardiac arrest. Etiology somewhat unclear but would favor underlying sleep disordered breathing with concomitant use of benzodiazepines. He is hemodynamically stable currently. Continue heparin drip. We will switch to p.o. alternatives once he is out of the ICU. Respiratory: History of sleep disordered breathing and probable obesity hypoventilation syndrome. Continue CPAP/BiPAP nightly and as needed during the day. Wean oxygen as tolerated. GI/Nutrition: NGT in place. Continue tube feeds. We will give a dose of lactulose today and a soapsuds enema. Renal/Lytes: Patient with mild PATRICA today. We will continue to monitor closely. Hold diuresis today. Continue to follow electrolytes and replete as needed. : -Brock in place -Continue to monitor strict I's and O's ENDO: -History of type 2 diabetes -Continue management per ICU glycemic protocol -Sliding scale insulin available HEME: Mild anemia. No indication for transfusion currently. Continue to trend. Note, patient is on a heparin drip. ID: -We have started cefepime today. Repeat blood cultures, urine analysis and procalcitonin pending. Unclear source of fever, but may be related to delirium. Central fever may also be a possibility. . Previous blood and sputum cultures have been negative. Lines/IV Access: -PIV x3 -Consideration of PICC if further requiring vasopressors DVT Prophylaxis: -continue systemic heparin (2) Respiratory failure: (3) Acute on chronic renal failure: (4) Chronic diastolic heart failure: (5) Acute diastolic (congestive) heart failure: (6) Pneumonia: (7) Shortness of breath: (8) Depression: (9) Alcohol abuse: (10) Acute encephalopathy: Admission and Anticipated Discharge Date Admission Date: October 23, 2020 Subjective Patient seen and examined this morning. He is currently on 1 mg an hour Precedex. He is still requiring Ativan overnight. He is sedated and delirious. His sitter is at bedside. He is wearing CPAP. He has a T-max of 100.4 overnight. No significant acute events overnight. Review of Systems Review of Systems: Unobtainable due to reduced consciousness Physical Exam Constitutional: + obese and + disheveled Eyes: + anicteric sclerae; no scleral abnormality and no corneal abnormality Respiratory: symmetric chest movement; + abnormal respiratory effort Auscultation: no rales, no rhonchi and no wheezes Cardiovascular: Heart Sounds: no gallop, no murmur and no cardiac rub Vessels: no JVD Extremities: + edema Gastrointestinal (Abdomen): Inspection/Auscultation: abdomen normal to inspection and normal bowel sounds; abdomen not distended and no abdominal edema Psychiatric: Orientation: + not alert Apperance: + disheveled Results & Data Results & Data ([facility]) Vital Signs (Past 12 Hours) Vital Signs Temp Pulse Resp BP Pulse Ox 11/04/20 07:35 82 18 97 11/04/20 06:00 100.4 F H 19 99 11/04/20 05:34 100.4 F H 62 24 126/95 96 11/04/20 05:30 100.4 F H 20 97 11/04/20 05:18 58 L 28 H 96 11/04/20 05:05 100.2 F H 54 L 22 99 11/04/20 05:04 100.4 F H 52 L 20 113/66 88 L 11/04/20 05:00 100.2 F H 57 L 24 93 11/04/20 04:34 100.2 F H 57 L 29 H 114/71 96 11/04/20 04:30 100.2 F H 56 L 17 100 11/04/20 04:05 100.2 F H 53 L 25 H 115/69 94 11/04/20 04:00 100.2 F H 54 L 28 H 98 11/04/20 03:35 100.0 F H 25 H 113/68 97 11/04/20 03:30 100.0 F H 71 25 H 96 11/04/20 03:04 100.0 F H 50 L 26 H 118/73 98 11/04/20 03:00 100.0 F H 48 L 27 H 98 11/04/20 02:35 100.0 F H 67 30 H 114/68 100 11/04/20 02:30 100.0 F H 56 L 18 99 11/04/20 02:10 54 L 22 96 11/04/20 02:04 99.9 F H 62 24 125/66 97 11/04/20 02:00 99.7 F H 51 L 29 H 99 11/04/20 01:34 99.9 F H 49 L 27 H 115/65 98 11/04/20 01:30 99.9 F H 47 L 18 95 11/04/20 01:05 99.9 F H 52 L 18 95 11/04/20 01:04 99.9 F H 51 L 20 119/72 95 11/04/20 01:00 99.9 F H 51 L 19 97 11/04/20 00:34 99.9 F H 56 L 27 H 108/66 99 11/04/20 00:30 99.9 F H 51 L 18 93 11/04/20 00:04 99.9 F H 46 L 28 H 113/62 98 11/04/20 00:00 99.9 F H 49 L 28 H 115/63 97 11/03/20 23:34 99.7 F H 51 L 17 115/63 99 11/03/20 23:30 99.7 F H 52 L 19 100 11/03/20 23:04 99.7 F H 52 L 27 H 104/74 93 11/03/20 23:00 99.7 F H 63 19 89 L 11/03/20 22:34 99.9 F H 54 L 25 H 114/69 95 11/03/20 22:30 99.9 F H 60 24 99 11/03/20 22:04 99.9 F H 50 L 28 H 114/72 90 11/03/20 22:00 99.9 F H 50 L 17 98 11/03/20 21:34 99.9 F H 62 24 102/65 95 11/03/20 21:30 99.9 F H 64 30 H 95 11/03/20 21:04 99.9 F H 55 L 29 H 113/70 88 L 11/03/20 21:00 99.9 F H 53 L 22 95 I reviewed the vital signs, labs and imaging Coding Level of Care Code 63655 Subseq Hosp Care Lv 3 Diagnoses Cardiac arrest I46.9 Respiratory failure J96.90 Acute on chronic renal failure N17.9; N18.9 Chronic diastolic heart failure I50.32 Acute diastolic (congestive) heart failure I50.31 Pneumonia J18.9 Pneumonia type: due to unspecified organism Laterality: right Lung location: lower lobe of lung Shortness of breath R06.02 Depression F32.9 Alcohol abuse F10.10 Acute encephalopathy G93.40 (1) Pneumonia Pneumonia type: due to unspecified organism Laterality: right Lung location: lower lobe of lung Qualified Code(s): J18.9 - Pneumonia, unspecified organism
[2020-11-04] MEDS ORDERED: LACTULOSE SYRUP 20 GM/30 ML UDC PO SCH (09:00)
[2020-11-04] MEDS: CALCIUM CARBONATE 1,250 MG/5 ML UDC PO SCH (09:21)
[2020-11-04] MEDS: FERROUS SULFATE 325 MG/7.4 ML UDP PO SCH (09:21)
[2020-11-04] MEDS: DOCUSATE SODIUM SYRUP 100 MG/10 ML UDC PO SCH (09:21)
[2020-11-04] MEDS: BETAMETHASONE DIP AUG (DIPROLENE) 0.05% CR 15 GM TUBE EXT SCH (09:22)
[2020-11-04] MEDS: FOLIC ACID 1 MG in SYRINGE 9.8 ML IV SCH (09:25)
[2020-11-04] MEDS: THIAMINE HCL 200 MG in SODIUM CHLORIDE 0.9% 50 ML IV SCH (09:27)
[2020-11-04] MEDS: HEPARIN SODIUM/DEXTROSE 25,000 UNITS/500 ML BAG IV SCH (09:28)
[2020-11-04] MEDS: LORazepam 2 MG/4 ML VIAL IV PRN (11:36)
[2020-11-04] MEDS ORDERED: HALOPERIDOL LACTATE 5 MG/ML 1 ML VIAL IM STA (11:47)
[2020-11-04 12:08] LABS: Appearance Urine Turbid (Clear); Bacteria Urine Automated Negative (Negative); Blood Urine 3+ (Negative); Color Urine Orange; Glucose Urine UA Negative (Negative); Ketones Urine Trace (Negative); Leukocyte Esterase Urine 2+ (Negative); Nitrite Urine Positive (Negative); Protein Urine 2+ (Negative); Specific Gravity Urine 1.033 (1.000-1.030); Urobilinogen Urine Negative (Negative); WBC Urine Automated >30 /hpf (0-5)
[2020-11-04 12:14] LABS: Bilirubin Urine 2+ (Negative)
[2020-11-04 12:26] LABS: RBC Urine Automated >30 /hpf (0-4)
[2020-11-04] MEDS ORDERED: ACETAMINOPHEN SUSP 1000 MG/31.2 ML UDP PO PRN (13:49)
[2020-11-04] MEDS ORDERED: ATROPINE SULFATE 0.1 MG/ML 10ML SYR IV ONE (14:13)
[2020-11-04] MEDS ORDERED: MAG SULFATE 50% 1GM/2ML VIAL IV ONE (14:30)
[2020-11-04] MEDS ORDERED: SODIUM BICARBONATE 8.4% INJ 50 MEQ/50 ML VIAL IV ONE (14:30)
[2020-11-04] MEDS ORDERED: CALCIUM CHLORIDE 10% 10 ML SYR IV ONE (14:30)
--- NOTE | 2020-11-04 14:57 | Hospitalist Progress Note ---
Date of Service November 03, 2020 Assessment & Plan (1) Cardiac arrest: This is a 65-year-old male who presents with shortness of breath. Pt initially treated for CHF exacerbation, RLL PNA, Aflutter, poss. R foot cellulitis. Pt w/ hx of alcohol abuse (confirmed by pt and his family members), on etoh withdrawal protocol. Night of 10/24 - pt received ativan per etoh withdrawal protocol as he was found to be agitated. Soon after pt witnessed LOC and pulseless, code blue was called, CPR per nursing staff, ACLS protocol - epi x2, cardioversion for wide complex tachycardia, started on amiodarone, intubated by ER physician. S/P hypothermia protocol S/P extubated today (10/30) Has been manage by [place] [facility] Cardiology on board Echo showed no regional wall motion abnormalities with preserved LV function Currently on Afib Continue monitor closely in ICU (2) Atrial fibrillation with rapid ventricular response: Currently on Afib Rate improved Continue metoprolol and heparin drip Cardiology on board (3) Pneumonia: (4) Shortness of breath: Respiratory failure CXR c/w Airspace consolidation is seen in the right lung base CTA chest showed no PE Mechanical ventilation management as per [place] [facility] Procalcitonin elevated Blood cx negative Abx has been on hold since no source of infection Procalcitonin continue trending down (5) Acute diastolic (congestive) heart failure: (6) CHF (congestive heart failure): CXR today showed Cardiomegaly with pulmonary vascular congestion. Intubated on Mechanical vent suppport Continue IV lasix Monitor I/O Electrolytes imbalance Potassium 3.6 Monitor electrolytes Alcoholism Alcohol withdrawal Continue with IV thiamine, IV folic acid. Continue monitor closely monitor Continue to be agitated He was placed on precedex Continue 1 to 1 sitter Anemia. Hemoglobin 8.4 today Continue iron supplements. Recent hx of venous ulcer bleed. Continue monitor CBC Hypertension BP in the low side, will continue to hold lisinopril Continue low dose metoprolol . LAUREN on CPAP at bedtime. Now pt intubated. Psoriasis. Previously on Humira. DVT prophylaxis On IV heparin drip (Will need to monitor closely due to recent bleed (from venous ulcer) Disposition Continue monitor in The ICU (7) Hypokalemia: Admission and Anticipated Discharge Date Admission Date: October 23, 2020 Subjective Pt was seen and examined for follow Lying in bed restlessness Pt was placed on precedex because of agitation He is drowsy today Physical Exam Physical Exam: General- restlessness Head- atraumatic Eyes- PERRL, EOMI, ENT- s/p extubation Neck- supple, no JVD Lungs- clear to auscultation Heart- +tachycardia, no murmur Abdomen- normal bowel sounds, soft Neuro-awake,moves all 4 extremities Skin- warm & dry Results & Data Results & Data ([facility]) Vital Signs (Past 12 Hours) Vital Signs Temp Pulse Resp BP Pulse Ox 11/04/20 13:28 38.9 C H 63 32 H 128/64 94 11/04/20 12:00 94 11/04/20 11:35 38.4 C H 65 27 H 140/80 11/04/20 11:06 38.4 C H 65 31 H 133/62 100 11/04/20 10:05 38.2 C H 58 L 24 116/59 L 11/04/20 10:00 38.2 C H 21 91 11/04/20 09:04 38.1 C H 57 L 21 116/82 98 11/04/20 08:34 37.9 C H 50 L 19 112/60 100 11/04/20 08:05 38.1 C H 58 L 23 106/53 L 98 11/04/20 08:00 38.0 C H 53 L 30 H 95 11/04/20 07:35 38.0 C H 57 L 32 H 121/67 97 11/04/20 07:04 38.0 C H 50 L 30 H 124/71 99 11/04/20 06:34 38.0 C H 64 30 H 134/79 98 11/04/20 06:04 38.0 C H 59 L 23 128/74 100 11/04/20 06:00 38.0 C H 19 99 11/04/20 05:34 38.0 C H 62 24 126/95 96 11/04/20 05:30 38.0 C H 20 97 11/04/20 05:18 58 L 28 H 96 11/04/20 05:05 37.9 C H 54 L 22 99 11/04/20 05:04 38.0 C H 52 L 20 113/66 88 L 11/04/20 05:00 37.9 C H 57 L 24 93 11/04/20 04:34 37.9 C H 57 L 29 H 114/71 96 11/04/20 04:30 37.9 C H 56 L 17 100 11/04/20 04:05 37.9 C H 53 L 25 H 115/69 94 11/04/20 04:00 37.9 C H 54 L 28 H 98 11/04/20 03:35 37.8 C H 25 H 113/68 97 11/04/20 03:30 37.8 C H 71 25 H 96 11/04/20 03:04 37.8 C H 50 L 26 H 118/73 98 11/04/20 03:00 37.8 C H 48 L 27 H 98 (1) Pneumonia Pneumonia type: due to unspecified organism Laterality: right Lung location: lower lobe of lung Qualified Code(s): J18.9 - Pneumonia, unspecified organism
--- NOTE | 2020-11-04 15:27 | Communication Note ---
Date of Service: November 04, 2020 Monica devlin called on the patient after he had a cardiac arrest. When I arrived at bedside, the ICU team was doing chest compression and Dr. Seth was running the code. the ICU team ran the code for 30minutes and multiple epi were given. Pt also received Bicard, mag and calcium. After 30minutes in the code, pt continued to be pulseless and PEA on monitor. Chest compression was stopped and no pulse felt. Dr. Seth and the resident notified the son over the phone. Son on his way to come to the hospital to visit his dad. Pt was at 14:33 . MD Pavel
--- NOTE | 2020-11-04 15:29 | Procedure Note ---
Procedure Note Date of Service November 04, 2020 Note INTUBATION PROCEDURE NOTE: Dr. Addy Sanford A time-out was completed verifying correct patient, procedure, site, positioning. Patient was evaluated and required intubation for cardiac arrest. Sedative agent used: None Paralysis agent used: None Emergent consent was implied given patients rapidly declining clinical status and need for airway protection. Number of attempts: 1 Bag mask ventilation was ongoing prior to the intubation. The patient was emergently intubated due to respiratory failure and cardiac arrest. A 7.5 Malay endotracheal tube was placed under video laryngoscope guidance to twenty-three cm at the lip. The stylette was removed and balloon was inflated with 10mL of air. Appropriate Colorimetric change was appreciated. Bilateral breath sounds were heard without air sounds in the abdomen. Patient ultimately and no chest x-ray was completed for the procedure. Coding CPT Codes Resuscitation - Resuscitation: 24546 Endotracheal Intubation, emergency ([id number]) [facility] Procedure Codes (Charges) Resuscitation Resuscitation: 98893 Endotracheal Intubation, emergency
--- NOTE | 2020-11-04 15:36 | Procedure Note ---
Procedure Note Date of Service November 04, 2020 Note CPR start time at 14:14 and CPR end time at 14:33 I came to the bedside as I was alerted the patient was very agitated and actually rolled over onto his abdomen. We urgently rolled the patient back onto his backside. Patient was found to be profoundly bradycardic with heart rates in the 20s and 30s. He was agonal and unresponsive to commands. His pulse was checked and he was found to be in PEA cardiac arrest. CPR was urgently started and the defibrillator pads were placed on his chest and back. He received several rounds of epinephrine during the ACLS procedure. He was also urgently intubated by myself during the cardiac arrest. The patient received 1 g of magnesium, 1 g calcium chloride and 1 ampoule of bicarbonate. No defibrillations were required as the patient was persistently in PEA and at one point the patient was in asystole. Ultimately, ACLS was stopped at fourteen thirty-three and patient was declared . Of note, I did perform a [id number] cardiac ultrasound which demonstrated agonal cardiac activity after CPR which then ceased after several seconds of CPR cessation. Family was updated about the situation and condolences were offered. The patient son is currently at bedside. They are appropriately grieving at this time. Coding CPT Codes Resuscitation - Resuscitation: 52601 Heart/lung resuscitation CPR ([id number]) [facility] Procedure Codes (Charges) Resuscitation Resuscitation: 12370 Heart/lung resuscitation CPR
--- NOTE | 2020-11-06 00:08 | Discharge Summary ---
Date of Service November 04, 2020 Admission HPI Per Admitting Provider DATE OF ADMISSION: 10/23/2020 CHIEF COMPLAINT: Shortness of breath. HISTORY OF PRESENT ILLNESS: This is a 65-year-old male with past medical history significant for diastolic dysfunction, paroxysmal atrial flutter, hypertension, diabetes, obstructive sleep apnea on CPAP, asthma, alcohol abuse, psoriatic arthropathy, psoriasis, gout, depression, who was recently in the hospital due to bleeding of the right lower extremity and was also treated for alcohol withdrawal, comes back because of shortness of breath. The patient is having shortness of breath last couple of days, he could not get up and walk because of shortness of breath. Denies any chest pain, no dizziness, no headache, no blurred vision, no earache, no runny nose, no sore throat. Appetite is okay. He says he is still drinking 6-8 beers every day, last drink was couple of days ago. He lives alone. He says he ambulates sometimes with cane. Denies any diarrhea or constipation. Normal bladder movements. Denies any cough, no fever. He was tachycardic and hypertensive in the ER and was requiring 3 liters oxygen. Chest x-ray, possible congestion and his troponin was 0.08 and BNP was 203. COVID was negative. Flu is negative. Admission Exam Per Admitting Provider GENERAL: The patient is obese, not in acute distress. VITAL SIGNS: Temperature 36.4, pulse 120s, respiratory rate 20, blood pressure 180/96, oxygen 97% on 3 liters. HEENT: Pupils equal, round, reactive to light. Oral mucosa somewhat dry. NECK: No JVD, no neck masses seen. CARDIOVASCULAR: S1, S2 heard. Tachycardia. No murmurs. RESPIRATORY SYSTEM: Normal AP diameter. No accessory muscle use. No wheezing. Mild bibasilar crackles. ABDOMEN: Soft, bowel sounds present, nontender, nondistended. CENTRAL NERVOUS SYSTEM: Alert and oriented. Speech clear, no facial droop. Moves extremities. Obeys simple commands. EXTREMITIES: Bilateral lower extremity chronic skin changes seen and somewhat foul smelling and also some open cuts in the plantar aspect of the right foot near the big toe. No drainage seen. Principal Diagnosis Cardiac arrest Discharge Exam General- restlessness Head- atraumatic Eyes- PERRL, EOMI, ENT- s/p extubation Neck- supple, no JVD Lungs- clear to auscultation Heart- +tachycardia, no murmur Abdomen- normal bowel sounds, soft Neuro-awake,moves all 4 extremities Skin- warm & dry Discharge Data Allergies Allergy/AdvReac Type Severity Reaction Status Date / Time No Known Allergies Allergy Verified 10/22/20 23:24 Consultations 10/22/20 23:15 ED Decision to Admit Stat 10/23/20 01:13 Consult Case Management - Discharge Planning Routine 10/23/20 08:00 Consult Cardiology Routine 10/24/20 22:25 Consult Case Management - Discharge Planning Routine 10/24/20 23:50 Consult [employer] Routine Ordered Studies 10/23/20 01:13 US venous doppler LE BI Urgent 10/23/20 05:28 CT angio chest PE protocol Urgent 10/23/20 10:58 CT foot RT w con Routine 10/24/20 22:36 CT abd pelvis wo con Stat CT chest diagnostic wo con Stat CT head/brain wo con Stat 10/24/20 23:05 US point of care ultrasound Urgent XR chest 1V portable CLINICAL HISTORY: follow up pulm edema COMPARISON STUDY: October 30, 2020 FINDINGS: The endotracheal tube has been removed. An enteric tube passes into the stomach. The heart is enlarged. There is mild pulmonary vascular congestion. There is no lobar consolidation. There is no overt edema. There is persistent mediastinal widening. A trace right pleural effusion is suspected IMPRESSION: 1. Cardiomegaly and improving pulmonary vascular congestion 2. Interval removal of the endotracheal tube. ACT 112: Negative or not required by law. Electronically signed by: Alberto Polanco M.D. 11/04/2020 7:17 AM Dictated: 11/04/20 0715Transcribed: 11/04/20 0715 KUB CLINICAL HISTORY: Abdominal distention. COMPARISON STUDY: CT of the abdomen and pelvis October 24, 2020. KUB November 02, 2020. FINDINGS: This exam is compromised by suboptimal penetration. No dilated loops of bowel are identified on this examination. No urinary calculi are identified although sensitivity is diminished. IMPRESSION: No evidence for a bowel obstruction. Technically difficult exam. ACT 112: Negative or not required by law. Electronically signed by: Oscar Schneider M.D. 11/03/2020 9:08 AM Dictated: 11/03/20 0907Transcribed: 11/03/20 0907 XR KUB/Abdomen 1 view CLINICAL HISTORY: post tube placement COMPARISON STUDY: No previous studies for comparison. FINDINGS: A single view centered on hemidiaphragms is provided for interpretation. There is an enteric tube with its tip at the level the duodenal bulb. The heart is enlarged. IMPRESSION: Enteric tube with its tip positioned at the level of the duodenal bulb. ACT 112: Negative or not required by law. Electronically signed by: Alberto Polanco M.D. 11/02/2020 2:55 PM Dictated: 11/02/20 1455Transcribed: 11/02/20 1455 SINGLE VIEW CHEST CLINICAL HISTORY: Generalized weakness. Dyspnea. FINDINGS: An AP, portable, upright chest radiograph is compared to study dated 04/14/2020. Correlation is made with chest CT dated 10/06/2016. The examination is degraded by portable technique, large body habitus, and apical lordotic positioning. The heart is enlarged. There is prominence of the pulmonary vasculature. Airspace consolidation is seen at the right lung base. No large pleural effusion or pneumothorax is seen. The skeletal structures are osteopenic. The bony thorax is grossly intact. IMPRESSION: 1. Cardiomegaly with prominence of the pulmonary vasculature. Correlate clinically for evidence of mild congestive change. 2. Airspace consolidation is seen in the right lung base. Correlate clinically for evidence of pneumonia/aspiration pneumonitis. Radiographic follow-up to resolution is recommended. ACT 112: Negative or not required by law. Electronically signed by: George Fofana M.D. 10/23/2020 7:40 AM Dictated: 10/23/20 0738Transcribed: 10/23/20 0738 BILATERAL LOWER EXTREMITY VENOUS DOPPLER HISTORY: Acute pain and swelling of the lower legs lower ext swollen, warm, dvt? COMPARISON STUDY: Duplex venous Doppler study 04/15/2020 FINDINGS: There is normal compressibility, flow, and augmentation within the bilateral lower extremity deep venous systems. Enlarged lymph node of the right inguinal chain are noted measuring up to 3.7 x 2.0 x 3.5 cm. Enlarged lymph nodes of the left inguinal chain are noted measuring up to 3.2 x 3.1 x 1.4 cm. Several lymph nodes demonstrate thickened cortices. Subcutaneous edema of the lower extremities. Collection of the left popliteal fossa measures 3.6 x 4.8 x 1.5 cm suggestive of a probable Kaplan's cyst. Limited study secondary to patient body habitus. IMPRESSION: 1. No sonographic evidence of deep venous thrombosis within the right or left lower extremity. 2. Nonspecific bilateral inguinal chain adenopathy. 3. Small left Kaplan's cyst. ACT 112: Negative or not required by law. Electronically signed by: Kian Augustine M.D. 10/23/2020 7:13 AM Dictated: 10/23/20 0701Transcribed: 10/23/[address] angio chest PE protocol CT DOSE: 1938.11 mGy.cm HISTORY: 65 years-old Male with PE. Acute chest pain with shortness of breath TECHNIQUE: Multiple CTA images of the chest were obtained after the intravenous administration of 116 ml Optiray 320. Coronal and sagittal MIPS were obtained from the axial data set and were submitted for review. All measurements were obtained according to NASCET criteria. A dose lowering technique was utilized adhering to the principles of ALARA. COMPARISON: CTA chest 10/08/2020 FINDINGS: CTA: Cardiomegaly with extensive coronary artery calcifications. Trace pericardial effusion. No thoracic aortic aneurysm or dissection. Dilated pulmonary artery. Segmental and subsegmental branches are not well visualized in the lung bases secondary to contrast bolus timing and respiratory motion artifact. No filling defects identified. CT CHEST: Unremarkable thyroid. Prominent and mildly enlarged mediastinal and axillary chain lymph nodes are redemonstrated. Decreased size of the index right upper axillary chain lymph node now measuring 3.4 x 1.0 cm, previously 3.2 x 1.3 cm. There is an index 1.8 cm prevascular lymph node on image 212 series 7 which is unchanged. No new or progressive adenopathy. Trace left and small right pleural effusions. There is no pneumothorax. Dependent right greater than left bibasilar opacities. No overt pulmonary edema. Central airways are patent. No acute process of the imaged upper abdomen. Hepatic steatosis. Mild gynecomastia. Degenerative changes of the shoulders and spine. IMPRESSION: 1. Cardiomegaly without evidence of pulmonary emboli. 2. Trace left and small right pleural effusions. 3. Asymmetric right lung base opacities suggest atelectasis versus pneumonitis. 4. Probable pulmonary artery hypertension. 5. Extensive coronary artery calcifications. ACT 112: Negative or not required by law. The above report was generated using voice recognition software. It may contain grammatical, syntax or spelling errors. Electronically signed by: Kian Augustine M.D. 10/23/2020 7:32 AM Dictated: 10/23/20724Transcribed: 10/23/20724 Hospital Course (1) Cardiac arrest: This is a 65-year-old male who presents with shortness of breath. Pt initially treated for CHF exacerbation, RLL PNA, Aflutter, poss. R foot cellulitis. Pt w/ hx of alcohol abuse (confirmed by pt and his family members), on etoh withdrawal protocol. Night of 10/24 - pt received ativan per etoh withdrawal protocol as he was found to be agitated. Soon after pt witnessed LOC and pulseless, srinivasa claus was called, CPR per nursing staff, ACLS protocol - epi x2, cardioversion for wide complex tachycardia, started on amiodarone, intubated by ER physician. S/P hypothermia protocol S/P extubated today (10/30) Has been manage by [employer] Cardiology on board Echo showed no regional wall motion abnormalities with preserved LV function Currently on Afib Continue monitor closely in ICU Srinivasa devlin called on the patient after he had a cardiac arrest. When I arrived at bedside, the ICU team was doing chest compression and Dr. Seth was running the code. the ICU team ran the code for 30minutes and multiple epi were given. Pt also received Bicard, mag and calcium. After 30minutes in the code, pt continued to be pulseless and PEA on monitor. Chest compression was stopped and no pulse felt. Dr. Seth and the resident notified the son over the phone. Son on his way to come to the hospital to visit his dad. Pt was at 14:33. (2) Atrial fibrillation with rapid ventricular response: Currently on Afib Rate improved Continue metoprolol and heparin drip Cardiology on board (3) Pneumonia: (4) Shortness of breath: Respiratory failure CXR c/w Airspace consolidation is seen in the right lung base CTA chest showed no PE Mechanical ventilation management as per [employer] Procalcitonin elevated Blood cx negative Abx has been on hold since no source of infection Procalcitonin continue trending down (5) Acute diastolic (congestive) heart failure: (6) CHF (congestive heart failure): CXR today showed Cardiomegaly with pulmonary vascular congestion. Intubated on Mechanical vent suppport Continue IV lasix Monitor I/O Electrolytes imbalance Potassium 3.6 Monitor electrolytes Alcoholism Alcohol withdrawal Continue with IV thiamine, IV folic acid. Continue monitor closely monitor Continue to be agitated He was placed on precedex Continue 1 to 1 sitter Anemia. Hemoglobin 8.4 today Continue iron supplements. Recent hx of venous ulcer bleed. Continue monitor CBC Hypertension BP in the low side, will continue to hold lisinopril Continue low dose metoprolol . LAUREN on CPAP at bedtime. Now pt intubated. Psoriasis. Previously on Humira. DVT prophylaxis On IV heparin drip (Will need to monitor closely due to recent bleed (from venous ulcer) Disposition Continue monitor in The ICU (7) Hypokalemia: Total Time Total Time Spent Total Time Spent (In Minutes): 15 minutes Total Time Includes: Examination of the Patient, Discharge Planning, Medication Reconciliation, Communication With Other Providers and Other Discharge Plan Discharge Items Patient Disposition:
== END 2020-11-04 19:03 | disposition expired | DRG 207 ==
LOC: ED 21:00 → 2S 10-23 00:28 → SUATTDRO 10-23 00:28 → 2S 10-23 01:05 → 1E 10-24 22:27